=== PATIENT | male | born 1955 | race Two or more races ===

== ENCOUNTER 2023-06-02 06:15 | Emergency (ER) | payer MEDICARE, MEDICAID, SELFPAY ==
[2023-06-02] VITALS (15 sets, daily range): BP systolic 137–153; BP diastolic 72–90; PULSE 60–68; RESP 14–24; TEMP 36.4; O2SAT 95–98; BMI 47.2
--- NOTE | 2023-06-02 06:25 | ECG_ITS ---
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
--- NOTE | 2023-06-02 06:28 | XR_ITS ---
[address] [address] Patient Name: DUTCH MONIQUE MRN: [id number] date: 1955 Sex: M Assigned Patient Location: ER Current Patient Location: ED.MAIN Accession/Order Number: [id number] Exam Date: 06/02/2023 06:40 Report Date: 06/02/2023 07:41 At the request of: PILLO VALDEZ Procedure: XR wrist LT min 3V PROCEDURE: XR elbow LT min 3V, XR wrist LT min 3V, XR forearm LT 2V HISTORY: fall COMPARISON: None. FINDINGS: BONES:Transverse fracture through distal humeral metaphysis with 10 mm medial displacement. No intra-articular extension; intact humeral-radial and humeral-ulnar joints. SOFT TISSUES:Swelling surrounding the elbow; no radiopaque foreign body. EFFUSION:Joint effusion. OTHER: Negative. XR/XR wrist LT min 3V IMPRESSION: 1. Acute supracondylar fracture of the distal left humerus with 10 mm medial displacement. 2. Mild degenerative change of the wrist joints. Electronically authenticated by: ANNI WALLACE Date: 06/02/2023 07:41
--- NOTE | 2023-06-02 06:28 | XR_ITS ---
[address] [address] Patient Name: DUTCH MONIQUE MRN: [id number] date: 1955 Sex: M Assigned Patient Location: ER Current Patient Location: ED.MAIN Accession/Order Number: [id number] Exam Date: 06/02/2023 06:40 Report Date: 06/02/2023 07:41 At the request of: PILLO VALDEZ Procedure: XR forearm LT 2V PROCEDURE: XR elbow LT min 3V, XR wrist LT min 3V, XR forearm LT 2V HISTORY: fall COMPARISON: None. FINDINGS: BONES:Transverse fracture through distal humeral metaphysis with 10 mm medial displacement. No intra-articular extension; intact humeral-radial and humeral-ulnar joints. SOFT TISSUES:Swelling surrounding the elbow; no radiopaque foreign body. EFFUSION:Joint effusion. OTHER: Negative. XR/XR forearm LT 2V IMPRESSION: 1. Acute supracondylar fracture of the distal left humerus with 10 mm medial displacement. 2. Mild degenerative change of the wrist joints. Electronically authenticated by: ANNI WALLACE Date: 06/02/2023 07:41
--- NOTE | 2023-06-02 06:28 | CT_ITS ---
[address] [address] Patient Name: DUTCH MONIQUE MRN: [id number] date: 1955 Sex: M Assigned Patient Location: ER Current Patient Location: ED.MAIN Accession/Order Number: [id number] Exam Date: 06/02/2023 06:40 Report Date: 06/02/2023 07:59 At the request of: PILLO VALDEZ Procedure: CT cervical spine wo con EXAMINATION: CT cervical spine wo con HISTORY: fall COMPARISON: No relevant comparison available. TECHNIQUE: Axial, Coronal, and Sagittal images were created without IV contrast. Dose reduction techniques were achieved by using automated exposure control and/or adjustment of mA and/or kV according to patient size and/or use of iterative reconstruction technique. FINDINGS: VERTEBRAL BODIES: Minimal grade 1 anterolisthesis of C4-5; no fracture or bone lesion. FACET JOINTS: Multilevel moderate degenerative facet arthropathy; no abnormal widening or disruption. DISCS: Moderate narrowing C5-6, C6-7. Multilevel mild narrowing. CENTRAL CANAL: Moderate narrowing C3-4-5. PARASPINAL AREA: No visible mass. CT/CT cervical spine wo con IMPRESSION: 1. No appreciable acute abnormality. 2. Moderate degenerative changes of cervical spine. Electronically authenticated by: ANNI WALLACE Date: 06/02/2023 07:59
--- NOTE | 2023-06-02 06:28 | XR_ITS ---
[address] [address] Patient Name: DUTCH MONIQUE MRN: [id number] date: 1955 Sex: M Assigned Patient Location: ER Current Patient Location: ED.MAIN Accession/Order Number: [id number] Exam Date: 06/02/2023 06:40 Report Date: 06/02/2023 07:41 At the request of: PILLO VALDEZ Procedure: XR elbow LT min 3V PROCEDURE: XR elbow LT min 3V, XR wrist LT min 3V, XR forearm LT 2V HISTORY: fall COMPARISON: None. FINDINGS: BONES:Transverse fracture through distal humeral metaphysis with 10 mm medial displacement. No intra-articular extension; intact humeral-radial and humeral-ulnar joints. SOFT TISSUES:Swelling surrounding the elbow; no radiopaque foreign body. EFFUSION:Joint effusion. OTHER: Negative. XR/XR elbow LT min 3V IMPRESSION: 1. Acute supracondylar fracture of the distal left humerus with 10 mm medial displacement. 2. Mild degenerative change of the wrist joints. Electronically authenticated by: ANNI WALLACE Date: 06/02/2023 07:41
--- NOTE | 2023-06-02 06:28 | CT_ITS ---
[address] [address] Patient Name: DUTCH MONIQUE MRN: [id number] date: 1955 Sex: M Assigned Patient Location: ER Current Patient Location: ER Accession/Order Number: [id number] Exam Date: 06/02/2023 06:40 Report Date: 06/02/2023 07:49 At the request of: PILLO VALDEZ Procedure: CT head/brain wo con EXAMINATION: CT head/brain wo con HISTORY: fall COMPARISON: No relevant comparison available. TECHNIQUE: Axial CT images were obtained without IV contrast. Dose reduction techniques were achieved by using automated exposure control and/or adjustment of mA and/or kV according to patient size and/or use of iterative reconstruction technique. FINDINGS: BRAIN: No edema, hemorrhage, mass, acute infarction, or inappropriate atrophy. CSF SPACES: No hydrocephalus, subarachnoid hemorrhage, or mass. Appropriate for age. SKULL: No fracture, mass, or other significant visible lesion. SINUSES: Bilateral maxillary antrectomies with marked mucosal thickening within left maxillary sinus and mild mucosal thickening throughout the ethmoid air cells bilaterally. ORBITS: Small partially calcified left globe. No fractures. OTHER: Negative CT/CT head/brain wo con IMPRESSION: 1. No appreciable acute abnormality of the brain. 2. No fracture of the calvarium or scalp hematoma. 3. Chronic sinusitis. Electronically authenticated by: ANNI WALLACE Date: 06/02/2023 07:49
--- NOTE | 2023-06-02 06:46 | ED.FALL1 ---
HPI - Fall General Chief Complaint: Fall Stated Complaint: FALL Time Seen by Provider: 06/02/23 06:24 Source: patient Mode of arrival: ambulance Limitations: no limitations History of Present Illness HPI Narrative: The patient is coming today after he tripped while getting out of bed , he mentioned that his feet got caught up with something and he fell down complaining of left forearm and elbow pain in addition to he hit his head there was no loss of consciousness he is complaining of left-sided neck pain as well The patient mentioned that the injury just happened before arrival and he is coming from home Related Data Home Medications Medication Instructions Recorded Confirmed Unobtainable 06/02/23 06/02/23 Allergies Allergy/AdvReac Type Severity Reaction Status Date / Time amoxicillin [From Augmentin] Allergy Unknown Verified 06/02/23 06:21 cefaclor [From Ceclor] Allergy Unknown Verified 06/02/23 06:21 clavulanic acid Allergy Unknown Verified 06/02/23 06:21 [From Augmentin] duloxetine [From Cymbalta] Allergy Unknown Verified 06/02/23 06:21 Review of Systems ROS Status of ROS 10 or more systems reviewed and unremarkable except as noted in history and below [facility] Social History Smoking status: Current every day smoker Exam Narrative Exam Narrative: Nurses notes and vital signs reviewed and patient is not hypoxic. General: Well-appearing and in no apparent distress. Skin: Warm, dry, no pallor noted. No rash. Head: Normocephalic, small contusion to the forehead area Neck: Supple, the patient is wearing neck collar there is left-sided paraspinal muscle tenderness as well as upper cervical tenderness Eye: Pupils are equal, round and EOMI. No scleral icterus. Ears, Nose, Mouth, and Throat: TM are clear, no nasal mucosal hypertrophy. Oral mucosa is moist, no posterior oropharynx erythema, uvula is mid-line Cardiovascular: Regular Rate and Rhythm without murmur, gallop or rub. Respiratory: No accessory muscle use or respiratory distress. Lungs are clear to auscultation, no wheezing, rales or rhonchi Chest Wall: no tenderness Back: No midline thoracic or lumbar vertebral tenderness. No CVA tenderness Musculoskeletal: There is tenderness upon palpation of the left elbow as well as mild edema also tenderness upon palpation of the left forearm. GI: Abdomen is soft, non-distended. Normal bowel sounds. No masses appreciated. No tenderness to palpation. No rebound, guarding, or rigidity noted. Neurological: A&O x4. No cranial nerve dysfunction observed. No truncal ataxia. Moves all extremities. Sensation intact. Psychiatric: Cooperative and interactive. Normal mood and affect. Constitutional Vital Signs, click to edit/add: Last Vital Signs Temp 97.6 F 06/02/23 06:15 Pulse 65 06/02/23 06:15 Resp 16 06/02/23 06:15 BP 150/72 H 06/02/23 06:15 Pulse Ox 98 06/02/23 06:15 O2 Del Method Room Air 06/02/23 06:15 Course Vital Signs Vital signs: Vital Signs Temperature 97.6 F 06/02/23 06:15 Pulse Rate 65 06/02/23 06:15 Respiratory Rate 16 06/02/23 06:15 Blood Pressure 150/72 H 06/02/23 06:15 Pulse Oximetry 98 06/02/23 06:15 Oxygen Delivery Method Room Air 06/02/23 06:15 Temperature 97.6 F 06/02/23 06:15 Pulse Rate 65 06/02/23 06:15 Respiratory Rate 16 06/02/23 06:15 Blood Pressure 150/72 H 06/02/23 06:15 Pulse Oximetry 98 06/02/23 06:15 Oxygen Delivery Method Room Air 06/02/23 06:15 MDM - Fall MDM Narrative Medical decision making narrative: Right now the patient had a CT head as well as CT cervical spine noted And that he also had an x-ray of his elbow forearm and wrist ordered in the left side he was treated in the ER with Toradol for pain We will keep Denicola until we obtain the results of the CAT scan the The patient care was transferred to Dr. Hayward Discharge Plan Discharge Patient Disposition: Still a Patient
[2023-06-02] MEDS: KETOROLAC TROMETHAMINE 30 MG/ML VIAL 15 MG IM (06:57)
[2023-06-02] MEDS: HYDROMORPHONE HCL 1 MG/ML CARTRIDGE IM (08:38)
== END 2023-06-02 09:20 | disposition home or self-care (01) ==
PROVIDERS: Emergency Provider Emergency Medicine; PCP Internal Medicine
DX: S42.412A Displaced simple supracondylar fracture without intercondylar fracture of left humerus, initial encounter for closed fracture (principal); S00.83XA Contusion of other part of head, initial encounter; W01.10XA Fall on same level from slipping, tripping and stumbling with subsequent striking against unspecified object, initial encounter; H54.62 Unqualified visual loss, left eye, normal vision right eye
CPT/HCPCS: 29105; 70450; 72125; 73080; 73090; 73110; 93005; 96372; 99284; J1170

== ENCOUNTER 2023-06-04 11:22 | Outpatient (OUT) | payer MEDICARE, MEDICAID, SELFPAY ==
--- NOTE | 2023-06-04 11:38 | ECG_ITS ---
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
[2023-06-04 12:11] LABS: Basophils Absolute Auto 0.1 10^3/uL (0.0-0.1); Basophils Percent Auto 0.6 % (0.2-2.0); Eosinophils Absolute Auto 0.1 10^3/uL (0.0-0.7); Eosinophils Percent Auto 1.4 % (0.9-7.0); Hemoglobin 14.1 g/dL (14.0-18.0); Immature Granulocytes Abs Auto 0.04 10^3/uL (0.00-0.03); Immature Granulocytes Pct Auto 0.4 % (0.0-0.5); Lymphocytes Absolute Auto 1.2 10^3/uL (1.2-3.8); Lymphocytes Percent Auto 13.1 % (20.5-60.0); Mean Corpuscular HGB Conc 36.2 g/dL (29.9-35.2); Mean Corpuscular Hemoglobin 32.3 pg (25.9-34.0); Mean Corpuscular Volume 89.4 fL (80.0-94.0); Mean Platelet Volume 9.5 fL (9.5-13.5); Monocytes Absolute Auto 0.7 10^3/uL (0.3-0.8); Monocytes Percent Auto 7.3 % (1.7-12.0); Neutrophils Percent Auto 77.2 % (43.0-75.0); Platelet Count 217 10^3/uL (150-450); Red Blood Count 4.36 10^6/uL (4.70-6.10); Red Cell Distribution Width 13.7 % (11.0-15.0)
[2023-06-04 12:39] LABS: BUN Creatinine Ratio 7.1; Calcium 8.6 mg/dL (8.5-10.1); Carbon Dioxide 26.2 mmol/L (21.0-32.0); Chloride 97 mmol/L (98-107); Estimated GFR (African America >60 (>=60); Estimated GFR (Non-African Ame >60 (>=60); Glucose 102 mg/dL (74-106); Potassium 4.2 mmol/L (3.5-5.1); Sodium 131 mmol/L (136-145)
== END 2023-06-04 11:23 | disposition home or self-care (01) ==
LOC: PST 11:26
PROVIDERS: PCP Internal Medicine; Visit Provider Orthopaedic Surgery
DX: Z01.810 Encounter for preprocedural cardiovascular examination (principal); S42.412A Displaced simple supracondylar fracture without intercondylar fracture of left humerus, initial encounter for closed fracture; E11.9 Type 2 diabetes mellitus without complications
CPT/HCPCS: 36415; 80048; 85025; 93005

== ENCOUNTER 2023-06-09 17:59 | Observation (INO) | payer MEDICARE, MEDICAID, SELFPAY ==
[2023-06-04 11:58] VITALS: BP 140/79; PULSE 78; RESP 20; TEMP 36.9; O2SAT 95; BMI 21.4
[2023-06-09] VITALS (26 sets, daily range): BP systolic 125–160; BP diastolic 65–96; PULSE 68–87; RESP 14–21; TEMP 36.1–36.8; O2SAT 91–98; BMI 21.3; BMI 21.5
--- NOTE | 2023-06-09 | XR_ITS ---
[address] [address] Patient Name: DUTCH MONIQUE MRN: [id number] date: 1955 Sex: M Assigned Patient Location: SURGOUT Current Patient Location: MS Accession/Order Number: [id number] Exam Date: 06/09/2023 11:30 Report Date: 06/10/2023 00:48 At the request of: ANNI WILSON Procedure: XR elbow LT 2V EXAM: XR elbow LT 2V HISTORY: ORIF Lt elbow COMPARISON: None. TECHNIQUE: Image intensifier images from the operating room were saved. FINDINGS: 3 images show placement of the medial and lateral humeral plates with multiple screws. Total fluoroscopy time was 212.6 seconds. Electronically authenticated by: Collins WARREN Date: 06/10/2023 00:48
[2023-06-09] MEDS: LACTATED RINGER'S SOLUTION 1,000 ML 50 ML IV ×2 (10:13→12:49)
[2023-06-09] MEDS: SCOPOLAMINE 1 EACH PATCH.TD.3 1 PATCH TD (10:55)
[2023-06-09] MEDS: VANCOMYCIN HCL 1,000 MG in 0.9 % SODIUM CHLORIDE 250 ML 1 MG IV (11:15)
--- NOTE | 2023-06-09 11:25 | PC.NURSE ---
1113 BLOCK FINISHED BP 135/72 P 74 R 16 SAO2 98% ON 3 L NC
[2023-06-09] MEDS: HYDROMORPHONE HCL 0.5 MG/0.5 ML SYRINGE IV ×3 (15:14→15:29)
--- NOTE | 2023-06-09 17:15 | PM.ORPRC ---
Procedure Note Date of procedure: 06/09/23 Pre-op diagnosis: Left distal humerus fracture, extra-articular Post-op diagnosis: same as pre-op Procedure: Open reduction internal fixation left distal humerus fracture Operative procedure: After informed consent was obtained the patient was brought to the operating room where a general anesthetic was administered. Preoperatively a regional block was placed. The patient was placed in the lateral decubitus position with all bony prominences well-padded. Left arm was draped over a post. The left arm was prepped and draped in the usual sterile fashion. An incision was made from the midportion of the humerus for posterior approach to the elbow extending distally just past the olecranon. Blunt dissection was carried down through soft tissue. Ulnar nerve was identified and released from ligament of [place] through Bruner's ligament and superficial and deep FCU fascia. A [place] drain was placed around the ulnar nerve for protection throughout the procedure. Nerve is maintained in its normal location after the procedure. Next the triceps on approach was taken to exposing the distal humerus extra-articular fracture. He triceps was elevated off the distal humerus through both medial and lateral windows. The fracture was identified and using a pointed reduction forcep was reduced. X-rays in AP and lateral planes revealed a good reduction. Synthes parallel distal humerus plates were utilized. First the medial plate was placed and secured into position with K wires. A 2.7 nonlocking screw was first placed in the shaft to aid in the reduction of the fracture. There was found to be some comminution of the medial epicondyle but no extension into the joint. In combination of 2.7 and 3.5 locking and nonlocking screws a total of 4 screws were placed in the proximal shaft fragment and 2 0.7 unicortical locking screws were placed at the distal fracture fragments. Next a lateral plate was placed and secured in a similar fashion with a 2.7 bicortical nonlocking screw. 1 bicortical 3.5 locking screw was placed in the shaft followed by 1 bicortical 2.7 locking screw. Final 2 screws were placed in the unicortical locking fashion to the distal fracture fragments. Final x-rays and AP and lateral planes revealed a reduced distal humeral fracture with appropriate implant placement and lengths. Wound was irrigated . Wound was closed in standard fashion in layers. Sterile dressing was placed. Posterior fiberglass splint was placed in 90 degrees of flexion. Patient was awakened and brought to the recovery in stable condition. There were no intraoperative or immediate postoperative complications. Anesthesia: GETA and regional Surgeon: Mynor Armstrong Title One Reading Teacher: Catarina Wood Pathology: none sent Condition: stable Disposition: observation
[2023-06-09 17:35] LABS: Hemoglobin 13.1 g/dL (14.0-18.0); Mean Corpuscular HGB Conc 35.4 g/dL (29.9-35.2); Mean Corpuscular Hemoglobin 32.2 pg (25.9-34.0); Mean Corpuscular Volume 90.9 fL (80.0-94.0); Mean Platelet Volume 9.1 fL (9.5-13.5); Platelet Count 275 10^3/uL (150-450); Red Blood Count 4.07 10^6/uL (4.70-6.10); Red Cell Distribution Width 13.8 % (11.0-15.0); White Blood Count 11.6 10^3/uL (4.0-11.0)
[2023-06-09 18:29] LABS: Band Neutrophils Absolute 0.2 10^3/uL (0.0-0.3); Hypochromasia 1+; Lymphocytes Absolute Manual 0.69 10^3/uL (1.20-3.80); Monocytes Absolute Manual 0.46 10^3/uL (0.30-0.80)
[2023-06-09 18:30] LABS: Anisocytosis 1+
[2023-06-09] MEDS: PRIMIDONE 50 MG TABLET 100 MG PO (22:43)
[2023-06-09] MEDS: ATORVASTATIN CALCIUM 40 MG TABLET PO (22:43)
[2023-06-09] MEDS: ARIPIPRAZOLE 2 MG TABLET PO (22:43)
[2023-06-09] MEDS: PREGABALIN 75 MG CAPSULE 150 MG PO (22:43)
[2023-06-09] MEDS: OMEPRAZOLE 40 MG CAPSULE.DR PO (22:43)
[2023-06-09] MEDS: TIZANIDINE HCL 4 MG TABLET 8 MG PO (22:44)
[2023-06-09] MEDS: VENLAFAXINE HCL ER 150 MG CAPSULE PO (22:44)
[2023-06-09] MEDS: PHENobarbitaL 32.4 MG TABLET PO (22:45)
[2023-06-09] MEDS: LISINOPRIL 20 MG TABLET PO (22:45)
[2023-06-09] MEDS: TAMSULOSIN HCL 0.4 MG CAPSULE PO (22:47)
[2023-06-10 03:44] VITALS: O2SAT 94
[2023-06-10] MEDS: PHENobarbitaL 32.4 MG TABLET PO (05:30)
[2023-06-10] MEDS: TIZANIDINE HCL 4 MG TABLET 8 MG PO (05:30)
[2023-06-10] MEDS: PREGABALIN 75 MG CAPSULE 150 MG PO (05:30)
[2023-06-10 05:41] VITALS: BP 162/81; PULSE 79; RESP 20; TEMP 36.8; O2SAT 92
[2023-06-10] MEDS: TAMSULOSIN HCL 0.4 MG CAPSULE PO (08:30)
[2023-06-10] MEDS: OMEPRAZOLE 40 MG CAPSULE.DR PO (08:30)
[2023-06-10] MEDS: LISINOPRIL 20 MG TABLET PO (08:30)
[2023-06-10] MEDS: PRIMIDONE 50 MG TABLET 100 MG PO (08:30)
--- NOTE | 2023-06-11 15:36 | CM.DCFOLLOWU ---
Person spoke with: patient How are you feeling? alright, but had a fall in the bathroom yesterday How is your pain? no pain Did you understand your discharge instructions? yes Do you have any questions about your discharge instructions? no Were you given any prescriptions at discharge? no Were you able to get your prescriptions filled? Do you understand how to take your medications as ordered? yes Do you have any questions about your follow up appointment and do you plan to keep your follow up appointment? No questions, follow up with Dr. Armstrong on FridayJune 16. Is there anything else that you would like to discuss? Patient had a fall at home, is there with him, he did voice he hit his head. Advised to go to ER if in any pain or if landed on arm that he had surgery on. Questions/Comments/Concerns/Other:
--- NOTE | 2023-06-30 15:12 | P.DS_ITS ---
DS: Providers Provider Date of admission: 06/09/23 17:59 Primary care physician: HARPER PERRY Admitting clinician: Mynor Armstrong Attending physician on admission: Mynor Armstrong Attending physician on discharge: Mynor Armstrong Discharging clinician: Mynor Armstrong DS: Diagnosis Discharge Diagnosis (1) Supracondylar fracture of left humerus: Plan Assessment: Supracondylar humerus fracture Plan: Discharged home. Follow-up in 2 weeks. DS: Summary Hospital Course Time spent discussing smoking cessation with patient: 3 to 10 minutes Status at Discharge Cognitive/behavioral status at discharge: Stable Functional status at discharge: independent ambulation Time Spent with Patient Time attestation: Total time spent providing and/or coordinating discharge services: Time spent: less than 30 minutes Specific discharge activities: Elevate arm. No weightbearing through operative arm. Quality: Stroke Reason for No Antithrombin at DC: Treatment not indicated Reason for No Anticoagulant at DC: Treatment not indicated Exam Constitutional Vital Signs, click to edit/add: Last Vital Signs Temp 98.3 F 06/10/23 05:41 Pulse 79 06/10/23 05:41 Resp 20 06/10/23 05:41 BP 162/81 H 06/10/23 05:41 Pulse Ox 92 L 06/10/23 05:41 O2 Del Method Room Air 06/10/23 05:41 Extremity Common normals: normal capillary refill General: normal exam except as noted Discharge Plan Discharge Disposition: Home, Self-Care Condition: Good Discharge Medications: Continued albuterol sulfate 90 mcg/actuation HFA aerosol inhaler 2 puff INHALATION Q4H PRN (Reason: bronchospasm) aripiprazole 2 mg tablet 2 mg PO QDAY fluticasone propionate 50 mcg/actuation spray,suspension 2 spray INTRANASAL QDAY hydrocodone-acetaminophen 10-325 mg tablet 2 tab PO Q6H PRN (Reason: pain) pantoprazole 40 mg tablet,delayed release (DR/EC) 40 mg PO QDAY lisinopril 20 mg tablet 20 mg PO QAM phenobarbital 32.4 mg tablet 32.4 mg PO Q8H phenytoin sodium extended 100 mg capsule 100 mg PO Q8H pregabalin 150 mg capsule 150 mg PO Q8H primidone 50 mg tablet 100 mg PO BID simvastatin 40 mg tablet 40 mg PO BEDTIME tamsulosin 0.4 mg capsule 0.4 mg PO QDAY tizanidine 4 mg tablet 8 mg PO Q8H venlafaxine 150 mg capsule,extended release 24hr 150 mg PO QDAY venlafaxine 75 mg capsule,extended release 24hr 75 mg PO QDAY diphenhydramine HCl [Banophen] 50 mg capsule 50 mg PO QPM PRN (Reason: sleep) No Action albuterol sulfate 90 mcg/actuation HFA aerosol inhaler 2 inh INHALATION Q4H PRN (Reason: wheezing) aripiprazole 2 mg tablet 2 mg PO DAILY epinephrine 0.15 mg/0.15 mL auto-injector 0.15 ml subcut PRN (Reason: allergic reaction) fluticasone propionate 50 mcg/actuation spray,suspension 2 spray INTRANASAL DAILY hydrocodone-acetaminophen 10-325 mg tablet 2 tab PO Q6H PRN (Reason: pain) lisinopril 20 mg tablet 20 mg PO DAILY pantoprazole 40 mg tablet,delayed release (DR/EC) 40 mg PO DAILY phenobarbital 32.4 mg tablet 32.4 mg PO TID phenytoin sodium extended 100 mg capsule 100 mg PO Q12H pregabalin 150 mg capsule 150 mg PO TID primidone 50 mg tablet 100 mg PO Q12H simvastatin 40 mg tablet 40 mg PO BEDTIME tamsulosin 0.4 mg capsule 0.4 mg PO Q24H tizanidine 4 mg tablet 8 mg PO Q8H venlafaxine 150 mg capsule,extended release 24hr 150 mg PO DAILY hydrocodone-acetaminophen 5-325 mg tablet 1 tab PO TID PRN (Reason: pain) 5 Days Qty: 20 0RF diphenhydramine HCl [Banophen] 25 mg capsule 25 mg PO BEDTIME PRN (Reason: sleep) Rx Instructions: 25 mg orally PRN; Activity: resume usual activities as tolerated Activity Detail: use cane when walking Diet: advance to your usual diet Print Language: Occitan Patient Instructions: ORIF of an Elbow Fracture (DC), ORIF of an Elbow Fracture (GEN) Activity Restrictions/Additional Instructions: SEDATION - For the next 24 hours: * Take it easy and rest today. You do not need to stay in bed, but avoid strenuous activities. * You may resume normal activities tomorrow. * DO NOT drive a car. * DO NOT leave your child unattended. * DO NOT make any important personal or business decisions or sign any legal documents. * DO NOT operate machinery such as power tools, lawn mowers, snow blowers, sewing machines, etc. * DO NOT stay alone. * No special care. * Keep dressings and suture lines clean and dry. * Do not remove the dressing until you see the doctor * You may remove and rewrap the diane wrap if it becomes too tight. * Apply an ice bag (20 minutes on/20 minutes off) for the first 24-48 hours. * Elevate your extremity. * MAY SHOWER WITH CAST COVERED Follow Up Appointments: Follow up appt. with Dr. Armstrong on @ 10:20 [facility] Office #: [phone] Discharge Date/Time: 06/10/23 09:34
== END 2023-06-10 09:34 | disposition home or self-care (01) ==
LOC: SURGOUT 06-10 08:06 → MS 06-10 08:06
PROVIDERS: Anesthesiology; Admitting Provider Orthopaedic Surgery; PCP Internal Medicine; Visit Provider Orthopaedic Surgery
PROC: (CPT 1740; principal; 2023-06-09 11:00)
DX: S42.402A Unspecified fracture of lower end of left humerus, initial encounter for closed fracture (principal); W19.XXXA Unspecified fall, initial encounter
CPT/HCPCS: 24586; 36415; 64415; 73070; 76000; 76942; 85027; 94761; C1713; G0378; J1170; J2704; J3370

== ENCOUNTER 2023-07-07 09:02 | Outpatient (OUT) | payer MEDICARE, MEDICAID, SELFPAY ==
--- NOTE | 2023-07-07 09:03 | XR_ITS ---
[address] [address] Patient Name: DUTCH MONIQUE MRN: [id number] date: 1955 Sex: M Assigned Patient Location: RAD Current Patient Location: RAD Accession/Order Number: [id number] Exam Date: 07/07/2023 09:17 Report Date: 07/07/2023 09:46 At the request of: NANI WILSON Procedure: XR elbow LT 2V PROCEDURE: XR elbow LT 2V COMPARISON: 06/09/2023 HISTORY: S42.4512A, S42.402A FINDINGS: BONES:Stable complex distal humerus fracture with internal fixation using a medial and lateral plate and screws. Extensive bone formation with periosteal reaction. Anatomic alignment. No dislocation. SOFT TISSUES:Moderate dorsal soft tissue swelling EFFUSION:None visible. OTHER: Negative. XR/XR elbow LT 2V IMPRESSION: Stable healing distal humerus fracture with internal fixation Electronically authenticated by: HEYDI ELKINS Date: 07/07/2023 09:46
== END 2023-07-07 09:03 | disposition home or self-care (01) ==
LOC: RAD 09:03
PROVIDERS: PCP Internal Medicine; Visit Provider Orthopaedic Surgery
DX: S42.412A Displaced simple supracondylar fracture without intercondylar fracture of left humerus, initial encounter for closed fracture (principal); S42.402A Unspecified fracture of lower end of left humerus, initial encounter for closed fracture
CPT/HCPCS: 73070

== ENCOUNTER 2023-07-09 18:53 | Emergency (ER) | payer MEDICARE, MEDICAID, SELFPAY ==
[2023-07-09 18:38] VITALS: BP 160/90; PULSE 80; RESP 18; TEMP 36.7; O2SAT 96; BMI 21.2
--- NOTE | 2023-07-09 18:54 | ED.GENADUL1 ---
HPI - General Adult General Chief complaint: Psychiatric Symptoms Stated complaint: suicidal Time Seen by Provider: 07/09/23 18:56 Source: patient Mode of arrival: ambulance History of Present Illness HPI narrative: patient is a 67-year-old male who is brought to the emergency department by EMS after police were called to the home for possible suicidal ideation. Patient explains that he recently broke his elbow and had surgery on his left elbow, he has an aide who comes to the home to help him and his with groceries and daily living activities. He states he had a disagreement with his aide yesterday and apparently told her I could stab you , and he states he said this out of frustration. He states he talked to the aide today and they worked out their disagreement. He states another nurse from the agency contacted police for the threat. Patient adamantly denies any suicidal or homicidal ideation. He has no other focal medical complaints and denies any ingestion of drugs or alcohol. He is calm and cooperative. Related Data Home Medications Medication Instructions Recorded Confirmed albuterol sulfate 90 mcg/actuation 2 inh inhalation Q4H PRN wheezing 06/02/23 06/02/23 aerosol inhaler aripiprazole 2 mg tablet 2 mg PO DAILY 06/02/23 06/02/23 epinephrine 0.15 mg/0.15 mL 0.15 ml subcut PRN allergic 06/02/23 auto-injector (for 33 to 66 lb reaction patients) fluticasone propionate 50 2 spray intranasal DAILY 06/02/23 06/02/23 mcg/actuation nasal spray,suspension hydrocodone 10 mg-acetaminophen 2 tab PO Q6H PRN pain 06/02/23 06/02/23 325 mg tablet lisinopril 20 mg tablet 20 mg PO DAILY 06/02/23 06/02/23 pantoprazole 40 mg tablet,delayed 40 mg PO DAILY 06/02/23 06/02/23 release phenobarbital 32.4 mg tablet 32.4 mg PO TID 06/02/23 06/02/23 phenytoin sodium extended 100 mg 100 mg PO Q12H 06/02/23 06/02/23 capsule pregabalin 150 mg capsule 150 mg PO TID 06/02/23 06/02/23 primidone 50 mg tablet 100 mg PO Q12H 06/02/23 06/02/23 simvastatin 40 mg tablet 40 mg PO BEDTIME 06/02/23 06/02/23 tamsulosin 0.4 mg capsule 0.4 mg PO Q24H 06/02/23 06/02/23 tizanidine 4 mg tablet 8 mg PO Q8H 06/02/23 06/02/23 venlafaxine 150 mg 150 mg PO DAILY 06/02/23 06/02/23 capsule,extended release 24 hr albuterol sulfate 90 mcg/actuation 2 puff inhalation Q4H PRN 06/04/23 06/09/23 aerosol inhaler bronchospasm aripiprazole 2 mg tablet 2 mg PO QDAY 06/04/23 06/09/23 diphenhydramine HCl 50 mg capsule 50 mg PO QPM PRN sleep 06/04/23 06/09/23 (Banophen) fluticasone propionate 50 2 spray intranasal QDAY 06/04/23 06/09/23 mcg/actuation nasal spray,suspension hydrocodone 10 mg-acetaminophen 2 tab PO Q6H PRN pain 06/04/23 06/09/23 325 mg tablet lisinopril 20 mg tablet 20 mg PO QAM 06/04/23 06/09/23 pantoprazole 40 mg tablet,delayed 40 mg PO QDAY 06/04/23 06/09/23 release phenobarbital 32.4 mg tablet 32.4 mg PO Q8H 06/04/23 06/09/23 phenytoin sodium extended 100 mg 100 mg PO Q8H 06/04/23 06/09/23 capsule pregabalin 150 mg capsule 150 mg PO Q8H 06/04/23 06/09/23 primidone 50 mg tablet 100 mg PO BID 06/04/23 06/09/23 simvastatin 40 mg tablet 40 mg PO BEDTIME 06/04/23 06/09/23 tamsulosin 0.4 mg capsule 0.4 mg PO QDAY 06/04/23 06/09/23 tizanidine 4 mg tablet 8 mg PO Q8H 06/04/23 06/09/23 venlafaxine 150 mg 150 mg PO QDAY 06/04/23 06/09/23 capsule,extended release 24 hr venlafaxine 75 mg capsule,extended 75 mg PO QDAY 06/04/23 06/09/23 release 24 hr diphenhydramine HCl 25 mg capsule 25 mg PO BEDTIME PRN sleep 06/09/23 06/09/23 (Banophen) Previous Rx's Medication Instructions Recorded hydrocodone 5 mg-acetaminophen 325 1 tab PO TID PRN pain 5 days #20 06/02/23 mg tablet tabs Allergies Allergy/AdvReac Type Severity Reaction Status Date / Time amoxicillin [From Augmentin] Allergy Unknown Verified 06/13/23 07:45 cefaclor [From Ceclor] Allergy Unknown Verified 06/13/23 07:45 clavulanic acid Allergy Unknown Verified 06/13/23 07:45 [From Augmentin] duloxetine [From Cymbalta] Allergy Unknown Verified 06/13/23 07:45 bee venom protein (honey bee) Allergy Anaphylaxis Verified 06/13/23 07:45 carbamazepine [From Tegretol] Allergy Weakness Verified 06/13/23 07:45 Review of Systems ROS Constitutional Denies: fever or chills Ears, nose, mouth, and throat Denies: throat pain Cardiovascular Denies: chest pain Respiratory Denies: shortness of breath or cough Gastrointestinal Denies: nausea or vomiting Musculoskeletal Denies: back pain or neck pain Integumentary/Breast Denies: rash Psychiatric Denies: anxiety or hopelessness Allergic/Immunologic Denies: hives [facility] Medical History (Updated 07/09/23 @ 19:27 by FRANCO Barillas) (03/21/21) Surgical History (Updated 06/13/23 @ 07:45 by Adriane Joshua) Family History (System 06/13/23 @ 07:45 by Adriane Joshua) Aunt Family history not known due to adoption Mother Family history of CHF (congestive heart failure) Family history of COPD (chronic obstructive pulmonary disease) Family history of heart disease Family history of hypertension Social History Within the past year, how often did you have a drink containing alcohol: never Score interpretation: A score less than 4 is consistent with normal alcohol consumption. Smoking status: Current every day smoker What tobacco products do you use: cigars Non-prescribed substance use: denies use Previous occupational history: DISABLED Highest level of school completed/degree received: Associate degree: academic program Exam Narrative Exam Narrative: Gen.: Awake, alert, in no distress Head: Normocephalic, atraumatic ENT: Moist mucous membranes Respiratory: No respiratory distress Extremities: left upper extremity in a sling Psych: Normal mood and affect Neuro: No focal neuro deficit Skin: Warm, dry, intact Constitutional Vital Signs, click to edit/add: Last Vital Signs Temp 98.1 F 07/09/23 18:38 Pulse 80 07/09/23 18:38 Resp 18 07/09/23 18:38 BP 160/90 H 07/09/23 18:38 Pulse Ox 96 07/09/23 18:38 O2 Del Method Room Air 07/09/23 18:38 Course Vital Signs Vital signs: Vital Signs Temperature 98.1 F 07/09/23 18:38 Pulse Rate 80 07/09/23 18:38 Respiratory Rate 18 07/09/23 18:38 Blood Pressure 160/90 H 07/09/23 18:38 Pulse Oximetry 96 07/09/23 18:38 Oxygen Delivery Method Room Air 07/09/23 18:38 Temperature 98.1 F 07/09/23 18:38 Pulse Rate 80 07/09/23 18:38 Respiratory Rate 18 07/09/23 18:38 Blood Pressure 160/90 H 07/09/23 18:38 Pulse Oximetry 96 07/09/23 18:38 Oxygen Delivery Method Room Air 07/09/23 18:38 Medical Decision Making MDM Narrative Medical decision making narrative: patient is calm, cooperative in the Emergency Room. He has stable vital signs, benign exam. He is not intoxicated, he has no suicidal or homicidal ideation. He spoke with counseling services over the phone from [facility], he does not pose a suicidal or homicidal risk at this time. He is discharged home, hotline number provided as needed. Return to the Emergency Room if symptoms change or worsen. Medical Records Medical records reviewed: Yes I reviewed the patient's medical records Discharge Plan Discharge Chief Complaint: Psychiatric Symptoms Clinical Impression: Behavior concern Patient Disposition: Home, Self-Care Time of Disposition Decision: 19:27 Condition: Good Prescriptions / Home Meds: No Action albuterol sulfate 90 mcg/actuation HFA aerosol inhaler 2 inh INHALATION Q4H PRN (Reason: wheezing) aripiprazole 2 mg tablet 2 mg PO DAILY epinephrine 0.15 mg/0.15 mL auto-injector 0.15 ml subcut PRN (Reason: allergic reaction) fluticasone propionate 50 mcg/actuation spray,suspension 2 spray INTRANASAL DAILY hydrocodone-acetaminophen 10-325 mg tablet 2 tab PO Q6H PRN (Reason: pain) lisinopril 20 mg tablet 20 mg PO DAILY pantoprazole 40 mg tablet,delayed release (DR/EC) 40 mg PO DAILY phenobarbital 32.4 mg tablet 32.4 mg PO TID phenytoin sodium extended 100 mg capsule 100 mg PO Q12H pregabalin 150 mg capsule 150 mg PO TID primidone 50 mg tablet 100 mg PO Q12H simvastatin 40 mg tablet 40 mg PO BEDTIME tamsulosin 0.4 mg capsule 0.4 mg PO Q24H tizanidine 4 mg tablet 8 mg PO Q8H venlafaxine 150 mg capsule,extended release 24hr 150 mg PO DAILY hydrocodone-acetaminophen 5-325 mg tablet 1 tab PO TID PRN (Reason: pain) 5 Days Qty: 20 0RF albuterol sulfate 90 mcg/actuation HFA aerosol inhaler 2 puff INHALATION Q4H PRN (Reason: bronchospasm) aripiprazole 2 mg tablet 2 mg PO QDAY fluticasone propionate 50 mcg/actuation spray,suspension 2 spray INTRANASAL QDAY hydrocodone-acetaminophen 10-325 mg tablet 2 tab PO Q6H PRN (Reason: pain) pantoprazole 40 mg tablet,delayed release (DR/EC) 40 mg PO QDAY lisinopril 20 mg tablet 20 mg PO QAM phenobarbital 32.4 mg tablet 32.4 mg PO Q8H phenytoin sodium extended 100 mg capsule 100 mg PO Q8H pregabalin 150 mg capsule 150 mg PO Q8H primidone 50 mg tablet 100 mg PO BID simvastatin 40 mg tablet 40 mg PO BEDTIME tamsulosin 0.4 mg capsule 0.4 mg PO QDAY tizanidine 4 mg tablet 8 mg PO Q8H venlafaxine 150 mg capsule,extended release 24hr 150 mg PO QDAY venlafaxine 75 mg capsule,extended release 24hr 75 mg PO QDAY diphenhydramine HCl [Banophen] 50 mg capsule 50 mg PO QPM PRN (Reason: sleep) diphenhydramine HCl [Banophen] 25 mg capsule 25 mg PO BEDTIME PRN (Reason: sleep) Rx Instructions: 25 mg orally PRN; Stand Alone Forms: Portal Instructions Referrals: HARPER PERRY [Primary Care Provider] - 1 week
--- NOTE | 2023-07-09 19:13 | PC.NURSE ---
pt brought in because patient lives and home and has injury to elbow so pt has an aid that comes and helps him around the houses. pt states that yesterday him and the aid got into an argument and the patient told the aid that he was so mad he could stab the aid. the police were contacted and then ems were contacted. pt states that he thought him and the aid had worked things out and that he apologized. pt denies and suicidal or homicidal ideation. pt is currently on the phone with p at this time.
== END 2023-07-09 20:06 | disposition home or self-care (01) ==
PROVIDERS: Emergency Provider Emergency Medicine; PCP Internal Medicine
DX: Z03.89 Encounter for observation for other suspected diseases and conditions ruled out (principal); Z79.899 Other long term (current) drug therapy; F17.290 Nicotine dependence, other tobacco product, uncomplicated
CPT/HCPCS: 99283

== ENCOUNTER 2023-07-21 09:55 | Outpatient (OUT) | payer MEDICARE, MEDICAID, SELFPAY ==
--- NOTE | 2023-07-21 10:03 | XR_ITS ---
The [address] [address] Patient Name: DUTCH MONIQUE MRN: [id number] date: 1955 Sex: M Assigned Patient Location: [facility] Current Patient Location: Accession/Order Number: [id number] Exam Date: 07/21/2023 10:17 Report Date: 07/22/2023 07:22 At the request of: ANNI WILSON Procedure: XR elbow LT 2V EXAM: XR elbow LT 2V, XR humerus LT HISTORY: Closed Fracture Of Left Humerus S42.402A COMPARISON: 07/07/2023. TECHNIQUE: Routine views of the XR elbow LT 2V, XR humerus LT FINDINGS/ XR/XR elbow LT 2V IMPRESSION: 1. Healing internally fixated distal humeral fracture as evidenced by callus maturation. No evidence for hardware complication. Maintained alignment. No new fracture identified. Normal mineralization. 2. Unremarkable soft tissues. 3. Normal joint spacing. Electronically authenticated by: KELI JEFFREY Date: 07/22/2023 07:22
--- NOTE | 2023-07-21 10:03 | XR_ITS ---
The [address] [address] Patient Name: DUTCH MONIQUE MRN: [id number] date: 1955 Sex: M Assigned Patient Location: [facility] Current Patient Location: Accession/Order Number: [id number] Exam Date: 07/21/2023 10:17 Report Date: 07/22/2023 07:22 At the request of: ANNI WILSON Procedure: XR humerus LT EXAM: XR elbow LT 2V, XR humerus LT HISTORY: Closed Fracture Of Left Humerus S42.402A COMPARISON: 07/07/2023. TECHNIQUE: Routine views of the XR elbow LT 2V, XR humerus LT FINDINGS/ XR/XR humerus LT IMPRESSION: 1. Healing internally fixated distal humeral fracture as evidenced by callus maturation. No evidence for hardware complication. Maintained alignment. No new fracture identified. Normal mineralization. 2. Unremarkable soft tissues. 3. Normal joint spacing. Electronically authenticated by: KELI JEFFREY Date: 07/22/2023 07:22
== END 2023-07-21 09:56 | disposition home or self-care (01) ==
LOC: RAD 09:55
PROVIDERS: PCP Internal Medicine; Visit Provider Orthopaedic Surgery
DX: S42.402A Unspecified fracture of lower end of left humerus, initial encounter for closed fracture (principal); X58.XXXA Exposure to other specified factors, initial encounter
CPT/HCPCS: 73060; 73070

== ENCOUNTER 2023-09-08 10:06 | Outpatient (OUT) | payer MEDICARE, MEDICAID, SELFPAY ==
--- NOTE | 2023-09-08 10:15 | XR_ITS ---
The [address] [address] Patient Name: DUTCH MONIQUE MRN: [id number] date: 1955 Sex: M Assigned Patient Location: [facility] Current Patient Location: Accession/Order Number: [id number] Exam Date: 09/08/2023 10:25 Report Date: 09/09/2023 07:18 At the request of: ANNI WILSON Procedure: XR elbow LT min 3V EXAM: XR elbow LT min 3V HISTORY: Displaced Simple Supracondylar Fracture Of Left Humerus COMPARISON: 06/02/2023. TECHNIQUE: Routine views of the XR elbow LT min 3V FINDINGS/ XR/XR elbow LT min 3V IMPRESSION: 1. Plate and screw fixation of the distal humerus. Callus formation about the supracondylar fracture site. Alignment is overall maintained. No evidence for hardware complication. 2. Posterior elbow swelling. 3. Mild degenerative changes at the elbow. Electronically authenticated by: KELI JEFFREY Date: 09/09/2023 07:18
== END 2023-09-08 10:07 | disposition home or self-care (01) ==
LOC: RAD 10:06
PROVIDERS: PCP Internal Medicine; Visit Provider Orthopaedic Surgery
DX: S42.412D Displaced simple supracondylar fracture without intercondylar fracture of left humerus, subsequent encounter for fracture with routine healing (principal)
CPT/HCPCS: 73080

== ENCOUNTER 2023-09-12 12:46 | Outpatient (OUT) | payer MEDICARE, MEDICAID, SELFPAY ==
--- NOTE | 2023-09-12 12:49 | CT_ITS ---
The [address] [address] Patient Name: DUTCH MONIQUE MRN: [id number] date: 1955 Sex: M Assigned Patient Location: CT Current Patient Location: CT Accession/Order Number: [id number] Exam Date: 09/12/2023 13:00 Report Date: 09/12/2023 13:22 At the request of: NON-STAFF PHYSICIAN Procedure: CT head/brain wo con EXAM: CT head/brain wo con HISTORY: Injury Of Head S09.90XA COMPARISON: CT brain 06/02/2023 TECHNIQUE: No IV contrast FINDINGS: The ventricles and basilar cisterns are within normal limits. No acute intra-axial or extra hemorrhage. No midline shift, mass effect or edema. Bifrontal atrophy noted moderate present previously. Widely patent foramen extending from the maxillary sinuses to the nasal cavity bilaterally. No fluid levels to suggest acute sinusitis. Mastoid air cells clear. The external and middle ear cavities are unremarkable. Left orbital prosthesis noted. CT/CT head/brain wo con IMPRESSION: No acute hemorrhage Electronically authenticated by: RAUL LOPEZ Date: 09/12/2023 13:22
== END 2023-09-12 12:47 | disposition home or self-care (01) ==
LOC: CT 12:46
PROVIDERS: PCP Internal Medicine
DX: S09.90XA Unspecified injury of head, initial encounter (principal)
CPT/HCPCS: 70450

== ENCOUNTER 2023-10-30 15:14 | Emergency (ER) | payer MEDICARE, MEDICAID, SELFPAY ==
[2023-10-30] VITALS (8 sets, daily range): BP systolic 133; BP diastolic 85; PULSE 81–99; RESP 11–26; TEMP 36.7; O2SAT 95–99; BMI 21.4
--- NOTE | 2023-10-30 15:15 | ECG_ITS ---
The [facility] Test Date: 2023-10-30 Pat Name: DUTCH MONIQUE Department: Room: - Gender: Male Battery [employer]er: : 1955 Requested By: HARPER PERRY Order Number: [id number] Reading MD: BLAINE MCKAY Measurements Intervals [place] Rate: 92 P: 57 RI: 136 QRS: 86 QRSD: 92 T: 70 QT: 364 QTc: 414 Interpretive Statements 1100 Sinus rhythm 1470 with occasional supraventricular premature complexes 4068 Nonspecific Twave abnormality 9140 abnormal rhythm ECG Compared to ECG 06/02/2023 06:24:01 No significant changes Electronically Signed On 11-03-2023 6:44:45 EST by BLAINE MCKAY
--- NOTE | 2023-10-30 15:19 | ED.GENADUL1 ---
HPI - General Adult General Chief complaint: Upper Respiratory Infection Stated complaint: COUGH Time Seen by Provider: 10/30/23 15:15 Source: patient Mode of arrival: ambulance History of Present Illness HPI narrative: Patient is a 68-year-old male who presents to the emergency department by ambulance for cough for the last 2 weeks. He denies chest pain. He has a history of chronic bronchitis. He uses albuterol inhalers at home. He reports yellow and green sputum. He has had no objective fevers, vomiting or diarrhea. He states his lower extremities have been swollen and painful without redness or drainage. He has not seen his PCP for any of the symptoms, he has an appointment tomorrow in his PCP office. Related Data Home Medications Medication Instructions Recorded Confirmed albuterol sulfate 90 mcg/actuation 2 inh inhalation Q4H PRN wheezing 06/02/23 06/02/23 aerosol inhaler aripiprazole 2 mg tablet 2 mg PO DAILY 06/02/23 06/02/23 epinephrine 0.15 mg/0.15 mL 0.15 ml subcut PRN allergic 06/02/23 auto-injector (for 33 to 66 lb reaction patients) fluticasone propionate 50 2 spray intranasal DAILY 06/02/23 06/02/23 mcg/actuation nasal spray,suspension hydrocodone 10 mg-acetaminophen 2 tab PO Q6H PRN pain 06/02/23 06/02/23 325 mg tablet lisinopril 20 mg tablet 20 mg PO DAILY 06/02/23 06/02/23 pantoprazole 40 mg tablet,delayed 40 mg PO DAILY 06/02/23 06/02/23 release phenobarbital 32.4 mg tablet 32.4 mg PO TID 06/02/23 06/02/23 phenytoin sodium extended 100 mg 100 mg PO Q12H 06/02/23 06/02/23 capsule pregabalin 150 mg capsule 150 mg PO TID 06/02/23 06/02/23 primidone 50 mg tablet 100 mg PO Q12H 06/02/23 06/02/23 simvastatin 40 mg tablet 40 mg PO BEDTIME 06/02/23 06/02/23 tamsulosin 0.4 mg capsule 0.4 mg PO Q24H 06/02/23 06/02/23 tizanidine 4 mg tablet 8 mg PO Q8H 06/02/23 06/02/23 venlafaxine 150 mg 150 mg PO DAILY 06/02/23 06/02/23 capsule,extended release 24 hr albuterol sulfate 90 mcg/actuation 2 puff inhalation Q4H PRN 06/04/23 06/09/23 aerosol inhaler bronchospasm aripiprazole 2 mg tablet 2 mg PO QDAY 06/04/23 06/09/23 diphenhydramine HCl 50 mg capsule 50 mg PO QPM PRN sleep 06/04/23 06/09/23 (Banophen) fluticasone propionate 50 2 spray intranasal QDAY 06/04/23 06/09/23 mcg/actuation nasal spray,suspension hydrocodone 10 mg-acetaminophen 2 tab PO Q6H PRN pain 06/04/23 06/09/23 325 mg tablet lisinopril 20 mg tablet 20 mg PO QAM 06/04/23 06/09/23 pantoprazole 40 mg tablet,delayed 40 mg PO QDAY 06/04/23 06/09/23 release phenobarbital 32.4 mg tablet 32.4 mg PO Q8H 06/04/23 06/09/23 phenytoin sodium extended 100 mg 100 mg PO Q8H 06/04/23 06/09/23 capsule pregabalin 150 mg capsule 150 mg PO Q8H 06/04/23 06/09/23 primidone 50 mg tablet 100 mg PO BID 06/04/23 06/09/23 simvastatin 40 mg tablet 40 mg PO BEDTIME 06/04/23 06/09/23 tamsulosin 0.4 mg capsule 0.4 mg PO QDAY 06/04/23 06/09/23 tizanidine 4 mg tablet 8 mg PO Q8H 06/04/23 06/09/23 venlafaxine 150 mg 150 mg PO QDAY 06/04/23 06/09/23 capsule,extended release 24 hr venlafaxine 75 mg capsule,extended 75 mg PO QDAY 06/04/23 06/09/23 release 24 hr diphenhydramine HCl 25 mg capsule 25 mg PO BEDTIME PRN sleep 06/09/23 06/09/23 (Banophen) Previous Rx's Medication Instructions Recorded hydrocodone 5 mg-acetaminophen 325 1 tab PO TID PRN pain 5 days #20 06/02/23 mg tablet tabs doxycycline hyclate 100 mg tablet 100 mg PO BID 10 days #20 tabs 10/30/23 furosemide 20 mg tablet (Lasix) 20 mg PO DAILY #5 tabs 10/30/23 methylprednisolone 4 mg tablets in See Rx Instructions .Route 10/30/23 a dose pack (Medrol (Justin)) .COMPLEX #21 ea Allergies Allergy/AdvReac Type Severity Reaction Status Date / Time amoxicillin [From Augmentin] Allergy Unknown Verified 06/13/23 07:45 cefaclor [From Ceclor] Allergy Unknown Verified 06/13/23 07:45 clavulanic acid Allergy Unknown Verified 06/13/23 07:45 [From Augmentin] duloxetine [From Cymbalta] Allergy Unknown Verified 06/13/23 07:45 bee venom protein (honey bee) Allergy Anaphylaxis Verified 06/13/23 07:45 carbamazepine [From Tegretol] Allergy Weakness Verified 06/13/23 07:45 Review of Systems ROS Constitutional Denies: fever or chills Ears, nose, mouth, and throat Denies: throat pain or nasal congestion Cardiovascular Denies: chest pain Respiratory Reports: cough, change in phlegm color and chest congestion; Denies: shortness of breath Gastrointestinal Denies: nausea, vomiting or diarrhea Musculoskeletal Denies: back pain, neck pain, extremity pain or extremity swelling Integumentary/Breast Denies: rash Neurological Denies: headache PFSH PFSH Medical History (Updated 10/30/23 @ 16:14 by FRANCO Barillas) Epilepsy ?G40.909 - Epilepsy, unspecified, not intractable, without status epilepticus (ICD-10) Postoperative nausea and vomiting ?R11.2 - Nausea with vomiting, unspecified (ICD-10) ?Z98.890 - Other specified postprocedural states (ICD-10) Humerus fracture ?S42.309A - Unspecified fracture of shaft of humerus, unspecified arm, initial encounter for closed fracture (ICD-10) Diabetes ?E11.9 - Type 2 diabetes mellitus without complications (ICD-10) High cholesterol ?E78.00 - Pure hypercholesterolemia, unspecified (ICD-10) GERD (gastroesophageal reflux disease) ?K21.9 - Gastro-esophageal reflux disease without esophagitis (ICD-10) IBS (irritable bowel syndrome) ?K58.9 - Irritable bowel syndrome without diarrhea (ICD-10) Migraine ?G43.909 - Migraine, unspecified, not intractable, without status migrainosus (ICD-10) Seizures ?R56.9 - Unspecified convulsions (ICD-10) Vision loss ?H54.7 - Unspecified visual loss (ICD-10) Bronchitis ?J40 - Bronchitis, not specified as acute or chronic (ICD-10) Anxiety ?F41.9 - Anxiety disorder, unspecified (ICD-10) Depression ?F32.A - Depression, unspecified (ICD-10) Hematochezia ?K92.1 - Melena (ICD-10) Arthritis ?M19.90 - Unspecified osteoarthritis, unspecified site (ICD-10) Back pain ?M54.9 - Dorsalgia, unspecified (ICD-10) Neuropathy ?G62.9 - Polyneuropathy, unspecified (ICD-10) Chickenpox ?B01.9 - Varicella without complication (ICD-10) Measles ?B05.9 - Measles without complication (ICD-10) Mumps ?B26.9 - Mumps without complication (ICD-10) Hernia of anterior abdominal wall ?K43.9 - Ventral hernia without obstruction or gangrene (ICD-10) Inguinal hernia ?K40.90 - Unilateral inguinal hernia, without obstruction or gangrene, not specified as recurrent (ICD-10) Fusion of spine ?M43.20 - Fusion of spine, site unspecified (ICD-10) H/O reduction of closed fracture ?Z87.81 - Personal history of (healed) traumatic fracture (ICD-10) Retinal detachment ?H33.20 - Serous retinal detachment, unspecified eye (ICD-10) Chronic sinusitis ?J32.9 - Chronic sinusitis, unspecified (ICD-10) Rosacea ?L71.9 - Rosacea, unspecified (ICD-10) Colonoscopy planned (03/21/21) Surgical History (Updated 06/13/23 @ 07:45 by Adriane Joshua) S/P cataract extraction and insertion of intraocular lens ?Z98.49 - Cataract extraction status, unspecified eye (ICD-10) ?Z96.1 - Presence of intraocular lens (ICD-10) H/O nasal septoplasty ?Z98.890 - Other specified postprocedural states (ICD-10) Hx of tonsillectomy ?Z90.89 - Acquired absence of other organs (ICD-10) History of cholecystectomy ?Z90.49 - Acquired absence of other specified parts of digestive tract (ICD-10) Hx of anterior cruciate ligament tear reconstruction ?Z98.890 - Other specified postprocedural states (ICD-10) History of bunionectomy ?Z98.890 - Other specified postprocedural states (ICD-10) Family History (System 06/13/23 @ 07:45 by Adriane Joshua) Aunt Family history not known due to adoption Mother Family history of CHF (congestive heart failure) Family history of COPD (chronic obstructive pulmonary disease) Family history of heart disease Family history of hypertension Social History Within the past year, how often did you have a drink containing alcohol: never Score interpretation: A score less than 4 is consistent with normal alcohol consumption. Smoking status: Current every day smoker What tobacco products do you use: cigars Non-prescribed substance use: denies use Previous occupational history: DISABLED Highest level of school completed/degree received: Associate degree: academic program Exam Narrative Exam Narrative: Gen.: Awake, alert, in no distress Head: Normocephalic, atraumatic ENT: Moist mucous membranes Respiratory: No respiratory distress, Lungs are diminished and clear Cardio: Regular rate and rhythm Extremities: Moves extremities equally, 2+ pitting edema to the bilateral lower extremities with no erythema or open wounds or drainage Psych: Normal mood and affect Neuro: No focal neuro deficit Skin: Warm, dry, intact Constitutional Vital Signs, click to edit/add: Last Vital Signs Temp 98.0 F 10/30/23 15:15 Pulse 81 10/30/23 15:39 Resp 20 10/30/23 15:15 BP 133/85 10/30/23 15:15 Pulse Ox 96 10/30/23 15:39 O2 Del Method Room Air 10/30/23 15:39 Course Vital Signs Vital signs: Vital Signs Temperature 98.0 F 10/30/23 15:15 Pulse Rate 91 H 10/30/23 15:15 Respiratory Rate 20 10/30/23 15:15 Blood Pressure 133/85 10/30/23 15:15 Pulse Oximetry 96 10/30/23 15:15 Oxygen Delivery Method Room Air 10/30/23 15:15 Temperature 98.0 F 10/30/23 15:15 Pulse Rate 81 10/30/23 15:39 Respiratory Rate 20 10/30/23 15:15 Blood Pressure 133/85 10/30/23 15:15 Pulse Oximetry 96 10/30/23 15:39 Oxygen Delivery Method Room Air 10/30/23 15:39 Medical Decision Making MDM Narrative Medical decision making narrative: Patient with stable vital signs, labs are unremarkable and chest x-ray with no evidence of acute cardiopulmonary changes. Lab studies show no evidence of CHF. Peripheral edema is likely dependent, no evidence of cellulitis at this time. Patient encouraged to use compression socks for swelling. Patient will be started on doxycycline, prednisone, short course of Lasix. He has an appointment tomorrow with his PCP. He is hemodynamically stable with no respiratory distress in the ER. Return to the ER if symptoms change or worsen. Medical Records Medical records reviewed: Yes I reviewed the patient's medical records Lab Data Lab results reviewed: Yes I reviewed the patient's lab results Labs: Lab Results 10/30/23 10/30/23 Range/Units 15:25 15:30 WBC 11.4 H (4.0-11.0) 10^3/uL RBC 4.64 L (4.70-6.10) 10^6/uL Hgb 14.7 (14.0-18.0) g/dL Hct 42.5 (42.0-54.0) % MCV 91.6 (80.0-94.0) fL MCH 31.7 (25.9-34.0) pg MCHC 34.6 (29.9-35.2) g/dL RDW 14.9 (11.0-15.0) % Plt Count 250 (150-450) 10^3/uL MPV 10.0 (9.5-13.5) fL Neut % (Auto) 84.6 H (43.0-75.0) % Lymph % (Auto) 8.2 L (20.5-60.0) % [place] % (Auto) 5.8 (1.7-12.0) % Eos % (Auto) 0.5 L (0.9-7.0) % Baso % (Auto) 0.5 (0.2-2.0) % Neut # (Auto) 9.7 H (1.4-6.5) 10^3/uL Lymph # (Auto) 0.9 L (1.2-3.8) 10^3/uL [place] # (Auto) 0.7 (0.3-0.8) 10^3/uL Eos # (Auto) 0.1 (0.0-0.7) 10^3/uL Baso # (Auto) 0.1 (0.0-0.1) 10^3/uL Abs Immat Gran (auto) 0.04 H (0.00-0.03) 10^3/uL Imm/Tot Granulo (auto) 0.4 (0.0-0.5) % PT 10.1 (9.0-11.6) sec INR 0.95 Sodium 133 L (136-145) mmol/L Potassium 3.8 (3.5-5.1) mmol/L Chloride 97 L (98-107) mmol/L Carbon Dioxide 25.0 (21.0-32.0) mmol/L Anion Gap 14.8 BUN 3.0 L (7.0-18.0) mg/dL Creatinine 0.70 (0.70-1.30) mg/dL Est GFR ( Amer) >60 (>=60) Est GFR (Non-Af Amer) >60 (>=60) BUN/Creatinine Ratio 4.3 Glucose 107 H (74-106) mg/dL Lactate 1.6 (0.4-2.0) mmol/L Calcium 9.2 (8.5-10.1) mg/dL Total Bilirubin 0.5 (0.2-1.0) mg/dL AST 59 H (15-37) U/L ALT 44 (16-63) U/L Alkaline Phosphatase 143 H (46-116) U/L Troponin I High Sens 11.0 (4.0-76.1) pg/mL NT-Pro-B Natriuret Pep 68.0 (<=900.0) pg/mL Total Protein 7.8 (6.4-8.2) g/dL Albumin 3.7 (3.4-5.0) g/dL Globulin 4.1 g/dL Albumin/Globulin Ratio 0.9 Influenza Type A Ag Negative Influenza Type B Ag Negative SARS-CoV-2 Ag (CV2AG) Negative (NEGATIVE) Imaging Data Chest x-ray: Attestation: I have reviewed the pertinent imaging results. Radiologist's impression: ITS Impressions Chest X-Ray 10/30/23 15:32 IMPRESSION: Clear lungs Electronically authenticated by: HEYDI ELKINS Date: 10/30/2023 15:45 ECG Data Attestation: I personally reviewed and interpreted this ECG as follows: (Normal sinus rhythm at a rate of 92, occasional PVC with no acute ST elevation. EKG reviewed by attending physician) Discharge Plan Discharge Chief Complaint: Upper Respiratory Infection Clinical Impression: Upper respiratory infection, Edema, peripheral Patient Disposition: Home, Self-Care Time of Disposition Decision: 16:14 Condition: Good Prescriptions / Home Meds: New methylprednisolone [Medrol (Justin)] 4 mg tablets,dose pack See Rx Instructions .ROUTE .COMPLEX Qty: 21 0RF Rx Instructions: Taper as directed doxycycline hyclate 100 mg tablet 100 mg PO BID 10 Days Qty: 20 0RF furosemide [Lasix] 20 mg tablet 20 mg PO DAILY Qty: 5 0RF No Action albuterol sulfate 90 mcg/actuation HFA aerosol inhaler 2 inh INHALATION Q4H PRN (Reason: wheezing) aripiprazole 2 mg tablet 2 mg PO DAILY epinephrine 0.15 mg/0.15 mL auto-injector 0.15 ml subcut PRN (Reason: allergic reaction) fluticasone propionate 50 mcg/actuation spray,suspension 2 spray INTRANASAL DAILY hydrocodone-acetaminophen 10-325 mg tablet 2 tab PO Q6H PRN (Reason: pain) lisinopril 20 mg tablet 20 mg PO DAILY pantoprazole 40 mg tablet,delayed release (DR/EC) 40 mg PO DAILY phenobarbital 32.4 mg tablet 32.4 mg PO TID phenytoin sodium extended 100 mg capsule 100 mg PO Q12H pregabalin 150 mg capsule 150 mg PO TID primidone 50 mg tablet 100 mg PO Q12H simvastatin 40 mg tablet 40 mg PO BEDTIME tamsulosin 0.4 mg capsule 0.4 mg PO Q24H tizanidine 4 mg tablet 8 mg PO Q8H venlafaxine 150 mg capsule,extended release 24hr 150 mg PO DAILY hydrocodone-acetaminophen 5-325 mg tablet 1 tab PO TID PRN (Reason: pain) 5 Days Qty: 20 0RF albuterol sulfate 90 mcg/actuation HFA aerosol inhaler 2 puff INHALATION Q4H PRN (Reason: bronchospasm) aripiprazole 2 mg tablet 2 mg PO QDAY fluticasone propionate 50 mcg/actuation spray,suspension 2 spray INTRANASAL QDAY hydrocodone-acetaminophen 10-325 mg tablet 2 tab PO Q6H PRN (Reason: pain) pantoprazole 40 mg tablet,delayed release (DR/EC) 40 mg PO QDAY lisinopril 20 mg tablet 20 mg PO QAM phenobarbital 32.4 mg tablet 32.4 mg PO Q8H phenytoin sodium extended 100 mg capsule 100 mg PO Q8H pregabalin 150 mg capsule 150 mg PO Q8H primidone 50 mg tablet 100 mg PO BID simvastatin 40 mg tablet 40 mg PO BEDTIME tamsulosin 0.4 mg capsule 0.4 mg PO QDAY tizanidine 4 mg tablet 8 mg PO Q8H venlafaxine 150 mg capsule,extended release 24hr 150 mg PO QDAY venlafaxine 75 mg capsule,extended release 24hr 75 mg PO QDAY diphenhydramine HCl [Banophen] 50 mg capsule 50 mg PO QPM PRN (Reason: sleep) diphenhydramine HCl [Banophen] 25 mg capsule 25 mg PO BEDTIME PRN (Reason: sleep) Rx Instructions: 25 mg orally PRN; Instructions: Upper Respiratory Infection (ED), Leg Edema (ED) Stand Alone Forms: Portal Instructions Referrals: HARPER PERRY [Primary Care Provider] - 10/31/23
--- OUTSIDE RECORDS SUMMARY | 2023-10-30 15:26 | XMS_ITS | CCD ---
Author Name Unknown Address [address] [place] [address] Organization [facility] Care Team Providers Care Bilingual Spanish Inbound Sales Name Role Phone ELLEN MORRIS Unavailable Unavailable BEA EPSTEIN Unavailable Unavailable ELIOT VAZQUEZ Unavailable Unavailable MITUL RICHMOND Unavailable Unavailable KS Unavailable Unavailable QASIMDUTCH NARANJO Unavailable Unavailable HEIDT, HEYDI Gambino Unavailable Unavailable VICKY, DR SALEEM Primary Care Unavailable VICKY, DR SALEEM Admitting Unavailable VICKY, DR SALEEM Attending Unavailable VICKY, DR SALEEM Consulting Unavailable NEFCYALEXX Consulting Unavailable VICKY, DR SALEEM Primary Care Unavailable VICKY, DR SALEEM Admitting Unavailable VICKY, DR SALEEM Attending Unavailable Allergies Allergy Classification Reported Allergen(s) Allergy Type Date of Onset Reaction(s) Facility (1 source) Bee/Wasp/Ant venom; Translations: [BEE STINGS] Propensity to adverse reactions (disorder) 7 [facility] Repository (2 sources) carBAMazepine Drug Allergy 7 [facility] Repository (2 sources) cefaclor Drug Allergy 7 [facility] Repository (2 sources) DULoxetine Drug Allergy 7 [facility] Repository (1 source) OXcarbazepine Drug Allergy 7 [facility] Repository (1 source) bee venom Drug allergy (disorder) 7 [facility] Repository Problems Active Problems Problem Classification Problem Date Documented Da te Episodic/Chronic Chronic obstructive pulmonary disease and bronchiectasis (1 source) Chronic obstructive pulmonary disease, unspecified; Translations: [CHRONIC OBSTRUCTIVE PULMONARY DISEASE, UNSPECIFIED] Onset: 06-08-2017 Chronic Diabetes mellitus without complication (1 source) Type 2 diabetes mellitus without complications; Translations: [TYPE 2 DIABETES MELLITUS WITHOUT COMPLICATIONS] Onset: 06-08-2017 Chronic Epilepsy; convulsions (1 source) Epilepsy, unspecified, not intractable, without status epilepticus; Translations: [EPILEPSY, UNSP, NOT INTRACTABLE, WITHOUT STATUS EPILEPTICUS] Onset: 06-08-2017 Chronic External Injury - Fall (1 source) Fall on same level from slipping, tripping and stumbling with subsequent striking against other object, initial encounter; Translations: [FALL SAME LEV FROM SLIP/TRIP W STRIKE AGNST OTH OBJECT, INIT] Onset: 06-08-2017 External Injury - Place of occurrence (1 source) Other place in unspecified non-institutional (private) residence as the place of occurrence of the external cause; Translations: [OTH PLACE IN UNSP NON-INSTITUT (PRIVATE) RESIDENCE PLACE] Onset: 06-08-2017 Other nervous system disorders (1 source) Other chronic pain; Translations: [OTHER CHRONIC PAIN] Onset: 06-08-2017 Chronic Other non-traumatic joint disorders (4 sources) Pain in right ankle and joints of right foot; Translations: [PAIN IN RIGHT ANKLE] Onset: 02-06-2023 Episodic Spondylosis; intervertebral disc disorders; other back problems (1 source) Other spondylosis, cervical region; Translations: [OTHER SPONDYLOSIS, CERVICAL REGION] Onset: 06-08-2017 Chronic Substance-related disorders (1 source) Nicotine dependence, cigarettes, uncomplicated; Translations: [NICOTINE DEPENDENCE, CIGARETTES, UNCOMPLICATED] Onset: 06-08-2017 Chronic Unclassified (2 sources) Unknown / UNK(Unknown) Onset: 06-08-2017 Past or Other Problems Problem Classification Problem Date Documented Da te Episodic/Chronic Allergic reactions (1 source) Allergy status to other anti-infective agents status; Translations: [ALLERGY STATUS TO OTHER ANTI-INFECTIVE AGENTS STATUS] Onset: 06-08-2017 Episodic Other fractures (1 source) Fracture of other parts of neck, initial encounter; Translations: [FRACTURE OF OTHER PARTS OF NECK, INITIAL ENCOUNTER] Onset: 06-08-2017 Episodic Other injuries and conditions due to external causes (3 sources) Unspecified injury of neck, initial encounter; Translations: [Traumatic subcutaneous emphysema, initial encounter] Onset: 06-08-2017 Episodic Spondylosis; intervertebral disc disorders; other back problems (1 source) Dorsalgia, unspecified; Translations: [DORSALGIA, UNSPECIFIED] Onset: 06-08-2017 Episodic Results Test Name Value Interpretation Reference Range Facility XR ANKLE RT MIN 3 VIEWSon XR ANKLE RT MIN 3 VIEWS EXAM: XR ANKLE RT MIN 3 VIEWS HISTORY: Arthralgia of the ankle and/or foot after twisting injury 4 days ago. COMPARISON: None. TECHNIQUE: 3 views of the right ankle were obtained. FINDINGS: There is no evidence of an acute fracture or dislocation. The mortise is intact. No osteochondral injury is identified. The subtalar joints are intact. No significant soft tissue swelling is identified. IMPRESSION: No acute fracture or dislocation. The joint spaces are intact. Electronically authenticated by: ALEXX MARIE Date: 2023-02-06 13:[address] [facility] Discharge Summaryon 06-10-20 17 Discharge Summary MR[id number] Admitted: 06/08/2017 Discharged: 06/09/2017 Date of : 1955 Physician: Heydi Walls M.D. DISCHARGE SUMMARYDISCHARGE ATTENDING: Dr. Walls.PRINCIPAL DIAGNOSIS: Neck injury following a fall on railing.SECONDARY DIAGNOSES: Chronic obstructive pulmonary disease, epilepsy, andtype 2 diabetes.PROCEDURES PERFORMED AND TREATMENT RENDERED: CTC, CT neck, x-ray ofabdomen and pelvis were performed in the emergency department at [facility]. CTC revealed cervical spondylosis with multi-facet DJD,otherwise no acute injuries. CT neck shows some right subcu emphysema inthe prevertebral tissue from the skull base to the superior mediastinum.X-ray of the pelvis and hip were negative. Esophagram was done at [facility] torule out esophageal rupture. Esophagram came back negative. The patientwas started on normal diet and home medications were resumed. Thepatient's condition at discharge was stable. The patient was seen by PTand OT, which recommended home PT, otherwise [facility]. The patient was discharged home with a prescriptionfor Percocet and for Colace. Instructions [facility].Electronically Signed by:Heydi Walls M.D. 06/10/2017 12:39 P Heydi Walls M.D. I personally saw this patient on the day of the encounter, performed thekey portion(s) of the service and participated in the management andconfirm the resident's documentation. Please note there may be anadditional personal documentation from me. Date Dict: 06/09/2017/04:39 P/WYATT Landrumate Trans: 06/10/2017 02:22 A/ToritoN_JN:[id number] cc: Mitul Richmond M.D. [address] [place] [id number] Normal [facility] CBC W/DIFFon 06-09-2017 Basophils Auto #/vol (Bld) 1.0 % Normal 0.0-2.0 [facility] Comment on above: Order Comment: No: D o not add to previous draw Performed By: #### 5 0103 ####[facility] [facility].[address] Eosinophils/100 leukocytes 3.7 % Normal 0.0-5.0 [facility] Comment on above: Order Comment: No: D o not add to previous draw Performed By: #### 5 0103 ####[facility] [place] [address], [facility] Erythrocyte distribution width Auto Ratio (RBC) 16.0 % Normal 11.5-16.9 [facility] Comment on above: Order Comment: No: D o not add to previous draw Performed By: #### 5 0103 ####[facility] [place] [address], [facility] Erythrocytes (RBC) 4.80 mill/mm3 Normal 4.30-5.90 [facility] Comment on above: Order Comment: No: D o not add to previous draw Performed By: #### 5 0103 ####[facility] [place] [address], [facility] Hematocrit (HCT) 45.6 % Normal 39.0-55.0 [facility] Comment on above: Order Comment: No: D o not add to previous draw Performed By: #### 5 0103 ####[facility] Hemoglobin mass conc (Bld) 15.3 g/dL Normal 13.9-16.3 [facility] Comment on above: Order Comment: No: D o not add to previous draw Performed By: #### 5 0103 ####[facility] Lymphocytes/100 leukocytes 28.3 % Normal 20.0-40.0 [facility] Comment on above: Order Comment: No: D o not add to previous draw Performed By: #### 5 0103 ####[facility] [facility].[address] MCH 31.9 pg Normal 24.0-32.0 [facility] Comment on above: Order Comment: No: D o not add to previous draw Performed By: #### 5 0103 ####[facility] MCHC mass conc (RBC) 33.6 g/dL Normal 32.0-36.0 [facility] Comment on above: Order Comment: No: D o not add to previous draw Performed By: #### 5 0103 ####[facility] [place] [address], [facility] MCV 95.1 fL Normal 80.0-100.0 [facility] Comment on above: Order Comment: No: D o not add to previous draw Performed By: #### 5 0103 ####[facility] [place] [address], [facility] METHOD Normal [facility] Comment on above: Order Comment: No: D o not add to previous draw Result Comment: Auto mated differential performedNormal RBC Morphology Performed By: #### 5 0103 ####[facility] [place] [address], [facility] MONOS 8.4 % High 2-8 [facility] Comment on above: Order Comment: No: D o not add to previous draw Performed By: #### 5 0103 ####[facility] [place] [address], [facility] Neutrophils/100 leukocytes 58.6 % Normal 50-70 [facility] Comment on above: Order Comment: No: D o not add to previous draw Performed By: #### 5 0103 ####[facility] [place] [address], [facility] PLAT CNT 144 Thou/mm3 Normal 100-400 [facility] Comment on above: Order Comment: No: D o not add to previous draw Performed By: #### 5 0103 ####[facility] [place] [address], [facility] WBC (Leukocytes) 5.4 Thou/mm3 Normal 4.0-10.0 [facility] Comment on above: Order Comment: No: D o not add to previous draw Performed By: #### 5 0103 ####[facility] [place] [address], [facility] COMP METABOLIC PANELon 06-09 Alanine aminotransferase (ALT) 20 U/L Normal 7-52 [facility] Comment on above: Order Comment: No: D o not add to previous draw Performed By: #### 4 1000, 88131, 40274 ####[facility] [place] [address], [facility] Albumin 3.6 g/dL Normal 3.5-5.7 [facility] Comment on above: Order Comment: No: D o not add to previous draw Performed By: #### 4 1000, 44827, 58472 ####[facility] [place] [address], [facility] ALKALINE PHOSPH 79 IU/L Normal 34-104 [facility] Comment on above: Order Comment: No: D o not add to previous draw Performed By: #### 4 1000, 74519, 30455 ####[facility] [place] [address], [facility] Aspartate aminotransferase (AST) 21 U/L Normal 13-39 [facility] Comment on above: Order Comment: No: D o not add to previous draw Performed By: #### 4 1000, 42350, 73215 ####[facility] [place] [address], [facility] Bilirubin (total) 0.6 mg/dL Normal 0.3-1.0 [facility] Comment on above: Order Comment: No: D o not add to previous draw Performed By: #### 4 1000, 79919, 70934 ####[facility] [place] [address], [facility] Calcium 8.5 mg/dL Low 8.6-10.3 [facility] Comment on above: Order Comment: No: D o not add to previous draw Performed By: #### 4 1000, 89020, 93359 ####[facility] [place] [address], [place] Chloride 105 mmol/L Normal 98-107 [facility] Comment on above: Order Comment: No: D o not add to previous draw Performed By: #### 4 1000, 89482, 66954 ####[facility] [place] [address], [place] CO2 23 mmol/L Normal 21-31 [facility] Comment on above: Order Comment: No: D o not add to previous draw Performed By: #### 4 1000, 44477, 87274 ####[facility] [place] [address], [place] Creatinine 0.69 mg/dL Low 0.70-1.30 [facility] Comment on above: Order Comment: No: D o not add to previous draw Performed By: #### 4 1000, 50269, 16749 ####[facility] [place] [address], [facility] eGFR (black) mL/min/{1.73_m2} Normal >60 [facility] Comment on above: Order Comment: No: D o not add to previous draw Performed By: #### 4 1000, 42227, 64390 ####[facility] [place] [address], [facility] eGFR (non-black) mL/min/{1.73_m2} Normal >60 Th e [facility] Comment on above: Order Comment: No: D o not add to previous draw Performed By: #### 4 1000, 07982, 94867 ####[facility] [place] [address], [facility] Glucose mass conc 72 mg/dL Normal 70-100 [facility] Comment on above: Order Comment: No: D o not add to previous draw Performed By: #### 4 1000, 23693, 50401 ####[facility] [place] [address], [facility] Potassium molar conc 4.0 mmol/L Normal 3.5-5.1 [facility] Comment on above: Order Comment: No: D o not add to previous draw Performed By: #### 4 1000, 05614, 22234 ####[facility] [place] [address], [facility] Protein 5.8 g/dL Low 6.0-8.3 [facility] Comment on above: Order Comment: No: D o not add to previous draw Performed By: #### 4 1000, 43759, 10548 ####[facility] [place] [address], [place] Sodium 135 mmol/L Low 136-145 [facility] Comment on above: Order Comment: No: D o not add to previous draw Performed By: #### 4 1000, 65224, 06054 ####[facility] [place] [address], [facility] Urea nitrogen 7 mg/dL Normal 7-25 [facility] Comment on above: Order Comment: No: D o not add to previous draw Performed By: #### 4 1000, 72151, 89798 ####[facility] [place] [address], [facility] LACTATE BLOODon 06-09-2017 Lactate 0.5 mmol/L Normal .5-2.2 [facility] Comment on above: Order Comment: No: D o not add to previous draw Performed By: #### 1 0054 ####[facility] [place] [address], [facility] MAGNESIUM BLOODon 06-09-2017 Magnesium 2.0 mg/dL Normal 1.9-2.7 [facility] Comment on above: Order Comment: No: D o not add to previous draw Performed By: #### 4 1000, 89981, 87924 ####[facility] [place] [address], [facility] PHOSPHORUS BLOODon 7 Phosphate 3.0 mg/dL Normal 2.5-5.0 [facility] Comment on above: Order Comment: No: D o not add to previous draw Performed By: #### 4 1000, 56184, 77799 ####[facility] [place] [address], [facility] BASIC METABOLIC PANELon 05-21 Calcium 8.7 mg/dL Normal 8.6-10.3 [facility] Comment on above: Order Comment: Yes: Add to Previous draw if able Performed By: #### 0 0071 ####[facility] [place] [address], [facility] Chloride 102 mmol/L Normal 98-107 [facility] Comment on above: Order Comment: Yes: Add to Previous draw if able Performed By: #### 0 0071 ####[facility] [place] [address], [facility] CO2 25 mmol/L Normal 21-31 [facility] Comment on above: Order Comment: Yes: Add to Previous draw if able Performed By: #### 0 0071 ####[facility] [place] [address], [facility] Creatinine 0.73 mg/dL Normal 0.70-1.30 [facility] Comment on above: Order Comment: Yes: Add to Previous draw if able Performed By: #### 0 0071 ####[address] [place] [address], [facility] eGFR (black) mL/min/{1.73_m2} Normal >60 [facility] Comment on above: Order Comment: Yes: Add to Previous draw if able Performed By: #### 0 0071 ####[place] [address] [facility] [place] [address], [facility] eGFR (non-black) mL/min/{1.73_m2} Normal >60 Th e [facility] Comment on above: Order Comment: Yes: Add to Previous draw if able Performed By: #### 0 0071 ####[place] [address] [place] [address], [facility] Glucose mass conc 97 mg/dL Normal 70-100 [facility] Comment on above: Order Comment: Yes: Add to Previous draw if able Performed By: #### 0 0071 ####[place] [address] [place] [address], [facility] Potassium molar conc 3.9 mmol/L Normal 3.5-5.1 [facility] Comment on above: Order Comment: Yes: Add to Previous draw if able Performed By: #### 0 0071 ####[address] Sodium 133 mmol/L Low 136-145 [facility] Comment on above: Order Comment: Yes: Add to Previous draw if able Performed By: #### 0 0071 ####[address] Urea nitrogen 6 mg/dL Low 7-25 [facility] Comment on above: Order Comment: Yes: Add to Previous draw if able Performed By: #### 0 0071 ####[place] [address] [facility].[address] CBC COMPLETE BLOOD COUNTon 06-08-2017 Erythrocyte distribution width Auto Ratio (RBC) 16.3 % Normal 11.5-16.9 [facility] Comment on above: Order Comment: Yes: Add to Previous draw if able Performed By: #### 5 0608 ####[address] Erythrocytes (RBC) 4.73 mill/mm3 Normal 4.30-5.90 [facility] Comment on above: Order Comment: Yes: Add to Previous draw if able Performed By: #### 5 0608 ####[address] Hematocrit (HCT) 45.0 % Normal 39.0-55.0 [facility] Comment on above: Order Comment: Yes: Add to Previous draw if able Performed By: #### 5 0608 ####[place] [address] [facility].[address] Hemoglobin mass conc (Bld) 15.4 g/dL Normal 13.9-16.3 [facility] Comment on above: Order Comment: Yes: Add to Previous draw if able Performed By: #### 5 0608 ####[address] [place] [address], [facility] MCH 32.5 pg High 24.0-32.0 [facility] Comment on above: Order Comment: Yes: Add to Previous draw if able Performed By: #### 5 0608 ####[address] MCHC mass conc (RBC) 34.2 g/dL Normal 32.0-36.0 [facility] Comment on above: Order Comment: Yes: Add to Previous draw if able Performed By: #### 5 0608 ####[address] MCV 95.1 fL Normal 80.0-100.0 [facility] Comment on above: Order Comment: Yes: Add to Previous draw if able Performed By: #### 5 0608 ####[address] PLAT CNT 157 Thou/mm3 Normal 100-400 [facility] Comment on above: Order Comment: Yes: Add to Previous draw if able Performed By: #### 5 0608 ####[address] WBC (Leukocytes) 9.0 Thou/mm3 Normal 4.0-10.0 [facility] Comment on above: Order Comment: Yes: Add to Previous draw if able Performed By: #### 5 0608 ####[address] ESOPHAGRAMon 06-08-2017 ESOPHAGRAM [facility] [place] [id number] P atient Name: DUTCH MONIQUE : 1955Sex: MAge: Race: WhiteMRN: [id number]. Location: [id number] Status: IVisit #: [id number] Date: 06/08/2017 3:35:00 PMCompleted Date: 06/08/2017 05:01 PMRequesting Provider: GUERITA HICKS Attending Provider: BEA EPSTEIN Report Copy To: Signs & Symptoms: DysphagiaHistory: Patient history not availableComments: R/O PerforationExam: ESOPHAGRAMAccession #: [id number] ======ESOPHAGRAM 06/08/2017 5:01 PM EDT SIGNS AND SYMPTOMS: Dysphagia TECHNOLOGIST COMMENTS: esophogram to look for perforation s/p fall and fx of hyoid bone 1.4 min fluoro time 3 oz Omni 350 QUESTION FOR THE RADIOLOGIST: R/O Perforation CONTRAST: Contrast: OMNIPAQUE 350 (LOCM), 3 ounce, Oral COMPARISON: none FINDINGS: 5 fluoroscopic spot images. Fluoroscopy time 1.4 minutes.Normal swallowing mechanism was demonstrated. The upper esophagus showed normal caliber with no evidence of perforation. IMPRESSION:No evidence of perforation. Approved by:Arcelia Colin on 06/08/2017 5:09 PM EDT I, Dutch De Souza, have reviewed the images and report and concur with these findings. Electronically signed by:Dutch De Souza. Transcribed by: [email or web address], User Resident: ARCELIA COLINElectronically Signed by: DUTCH DE SOUZA @ 06/09/2017 07:05 AMI personally read this/these film(s) with this resident Normal [facility] Comment on above: Order Comment: R/O P erforation History and Physicalon 06-08 History and Physical [id number] Admitted: 06/08/2017 Date of : 1955 Attending Physician: Bea Epstein MD Room #: [id number] Discharge Date: HISTORY AND PHYSICALCHIEF COMPLAINT: Neck pain/trouble speaking.HISTORY OF PRESENT ILLNESS: The patient is a 61-year-old male, who wasgoing to get his mail at 10:00 p.m. on the night of 06/07/2017, and ended uptripping and falling on some railing and injuring his neck in the fall. Hedid not hit his head, and there was no loss of consciousness. He waswalking with his cane at this time, and the cane had impacted in the lowerabdominal area, so he notes some soreness there as well. He also notessome lower back pain, which he says is chronic and not new. He initiallysaid the pain was 8.5/10 in the neck; however, he did not seek treatmentfor a couple of hours until he started developing increasing persistentpain in the neck area following by developing trouble speaking/hoarseness.[facility] eventually [facility] and [facility], where a CT of the neck showed some prevertebral subcutaneousemphysema as well as a fracture of the right portion of the hyoid bone. [facility]was [facility] for furtherevaluation in stable condition.PAST MEDICAL HISTORY: Type 2 diabetes mellitus, epilepsy, COPD/chronicbronchitis, and chronic back pain.PAST SURGICAL HISTORY: Back surgery, right knee ACL surgery,cholecystectomy, nose surgery, and teeth removal.FAMILY HISTORY: Noncontributory.SOCIAL HISTORY: One-half pack per day smoker for at least 14 years. Hehad quit before this time for 23 years, but smoked before then. No alcoholor drug use.MEDICATIONS: [place], tizanidine, phenytoin, primidone, Effexor XR, Zocor,lamotrigine, zolpidem, Lyrica, phenobarbital, pantoprazole, baclofen, andLevitra.ALLERGIES: Bee venom, Ceclor, Cymbalta, and Tegretol.REVIEW OF SYSTEMS: A 12-point review of systems was obtained and wasnegative except for what is noted in the HPI. In addition, the patientreports having a left superficial skin abrasion on the left wrist due tohis medical bracelet digging into his skin from the fall. Other pertinentpositives were as noted in the HPI.LABORATORY DATA: None.IMAGING DATA: CT of cervical spine on 06/08/2017 at outside hospital showsno acute fractures in the cervical spine or prevertebral soft tissueswelling, but does show cervical spondylosis with multilevel facet DJD. CTof the neck at outside hospital shows right submandibular soft tissuecontusion associated with soft tissue edema and extensive soft tissueemphysema, dissecting superiorly through the right prevertebral andparapharyngeal/perivas cular soft tissues to right skull base and inferiorlythrough the prevertebral and right anterolateral neck soft tissue tosuperior mediastinum as well as a mildly displaced fracture in the rightportion of the hyoid bone. There is no pneumothorax in visualized upperlungs and intact mandible. There are bilateral maxillary antrostomychanges with mild mucosal thickening in the ethmoid sinuses. Pelvic x-rayshows no fractures or acute abnormalities of the pelvis and right hip. Noacute fractures or dislocations. X-ray of the lumbar spine and sacrumshows no evidence of acute fracture or dislocation, although there isvariability of joint spacing throughout the lumbar spine.PHYSICAL EXAMINATION: VITAL SIGNS: Temperature 97.9 degrees Fahrenheit,heart rate 86, respiratory rate 23, blood pressure 138/67, O2 honppbgnws27% on room air.GENERAL: No acute distress. Hoarseness when speaking.HEENT: Normocephalic, atraumatic. Pupils equally round, reactive tolight.NECK: Well demarcated line of bruising on the left across the neck. Nosubq air felt.CHEST AND LUNGS: Clear to auscultation bilaterally.CARDIOVASCULA R: Regular rate and rhythm. No murmurs appreciated.ABDOMINAL EXAM: Soft, nondistended, mild tenderness to palpation diffuselywith mild rebound tenderness.EXTERNAL GENITALIA/RECTAL: Deferred.LYMPHATIC: No lymphadenopathy appreciated.EXTREMITIES: Moves all extremities x4. No edema or tenderness other thanin the left wrist.NEUROLOGICAL: Alert and oriented x3. No focal motor-sensory deficits.IMPRESSION: The patient is a 61-year-old male, who suffered a traumaticfall on his neck and now presents with increased basxssov-yx-tqpchm painand hoarseness with imaging showing prevertebral subcutaneous emphysema aswell as a mildly displaced fracture in the right portion of the hyoidbone.PLAN:1. The patient is admitted to the Trauma Service under Dr. Epstein.2. We will keep the patient n.p.o. for now until an esophagram can be obtained to assess for any esophageal perforation, after this time he can take medication p.o. and can be started on clear liquid diet potentially.3. Pain control.4. We will obtain routine labs.5. The patient will be on IV fluids for now, and we will continue to monitor his respiratory status. He is currently saturating above 90% on room air, but we will make sure that he does not develop any acute signs of dyspnea or desaturations; otherwise, we may have to intubate the patient.6. We will discuss any further plans with the attending.ATTENDING ADDENDUM:Pt seen on admission to the floor. D/w residents. S/p fall, striking hisanterior neck. Concern for laryngeal injury with voice changes.Typically this will resolve without operative intervention. Admit for evalfor esophageal injury and airway monitoring.We will continue management of his multiple chronic medical problems.Electronically Signed by:Bea Epstein MD 07/01/2017 08:15 A Bea Epstein MD I personally saw this patient on the day of the encounter, performed thekey portion(s) of the service and participated in the management andconfirm the resident's documentation. Please note there may be anadditional personal documentation from me. Date Dict: 06/08/2017/12:48 P/Rell Cuellar Trans: 06/08/2017 08:50 [id number] Normal [facility] TOX PANEL URINEon 06-08-2017 50 THC Negative Normal NEGATIVE [facility] Comment on above: Order Comment: Yes: Add to Previous draw if able Performed By: #### 3 1079 ####[facility] [place] [address], [facility] BARBITURATES Positive Abnormal NEGATIVE [facility] Comment on above: Order Comment: Yes: Add to Previous draw if able Performed By: #### 3 1079 ####[facility] [place] [address], [facility] MONO AMPHET Negative Normal NEGATIVE [facility] Comment on above: Order Comment: Yes: Add to Previous draw if able Performed By: #### 3 1079 ####[facility] [place] [address], [facility] PROPOXYPHENE Negative Normal NEGATIVE [facility] Comment on above: Order Comment: Yes: Add to Previous draw if able Performed By: #### 3 1079 ####[facility] [place] [address], [facility] TRICYCLICS Negative Normal NEGATIVE [facility] Comment on above: Order Comment: Yes: Add to Previous draw if able Performed By: #### 3 1079 ####[facility] [place] [address], [facility] Urine, benzodiazepines presence Negative Normal NEGATIVE [facility] Comment on above: Order Comment: Yes: Add to Previous draw if able Performed By: #### 3 1079 ####[facility] [place] [address], [facility] Urine, cocaine presence Negative Normal NEGATIVE [facility] Comment on above: Order Comment: Yes: Add to Previous draw if able Performed By: #### 3 1079 ####[facility] [place] [address], [facility] Urine, methadone presence Negative Normal NEGATIVE [facility] Comment on above: Order Comment: Yes: Add to Previous draw if able Performed By: #### 3 1079 ####[facility] [place] [address], [place] Urine, opiates presence Positive Abnormal NEGATIVE [facility] Comment on above: Order Comment: Yes: Add to Previous draw if able Performed By: #### 3 1079 ####[facility] [place] [address], [facility] Urine, phencyclidine presence Negative Normal NEGATIVE [facility] Comment on above: Order Comment: Yes: Add to Previous draw if able Performed By: #### 3 1079 ####[facility] [place] [address], [facility] Encounters Encounter Date Encounter Type Care Provider Facility Start: 02-06-2023 End: 02-07-[address] MITUL RICHMOND Facility: Start: 08-14-2017 Ambulatory ELLEN Patel ty:[facility] Start: 06-08-2017 End: 06-09-2017 Ambulatory BEA EPSTEIN Facility:[facility] Procedures Date Procedure Procedure Detail Performing Clinician Start: 06-08-2017 FLUOROSCOPY OF ESOPH [place] USING OTHER CONTRAST DUTCH DE SOUZA Payers Date Payer Category Payer Medicaid [id number] 1958 Medicare [id number] 1955 Unknown [id number] 1955 Unknown [id number] Unknown [id number] Summary Purpose Family History No Family History Records FoundNo Family History Records FoundNo Family History Records Found Advance Directives No Advanced Directives Records FoundNo Advanced Directives Records FoundNo Advanced Directives Records Found Additional Source Comments (unrecognized sect ion and content) No Status Records FoundNo Status Records FoundNo Status Records Found INFORMATION SOURCE (unrecogn ized section and content) DATE CREATED AUTHOR 04/15/2018 [facility] DATE CREATED AUTHOR AUTHOR'S ORGANIZ ATION 04/15/2018 [facility] DATE CREATED AUTHOR AUTHOR'S ORGANIZ ATION 02/14/2023 [facility] FOR RECORDS PERTAINING TO PATIENTS WHO ARE OR HAVE BEEN ENROLLED IN A CHEMICAL DEPENDENCY/SUBSTANCEABUSE PROGRAM, SOME INFORMATION MAY BE OMITTED. This clinical summary was aggregated from multiple sources. Caution should be exercised in using it in the provision of clinical care. This summary normalizes information from multiple sources, and as a consequence, information in this document may materially change the coding, format and clinical context of patient data. In addition, data may be omitted in some cases. CLINICAL DECISIONS SHOULD BE BASED ON THE PRIMARY CLINICAL RECORDS. [facility]. provides no warranty or guarantee of the accuracy or completeness of information in this document.
--- NOTE | 2023-10-30 15:32 | XR_ITS ---
[address] [address] Patient Name: DUTCH MONIQUE MRN: [id number] date: 1955 Sex: M Assigned Patient Location: ER Current Patient Location: ER Accession/Order Number: [id number] Exam Date: 10/30/2023 15:25 Report Date: 10/30/2023 15:45 At the request of: KENJI LOPEZ Procedure: XR chest 1V EXAMINATION: XR chest 1V HISTORY: Cough COMPARISON: No relevant comparison available. TECHNIQUE: AP portable FINDINGS: LUNGS: No significant pulmonary parenchymal abnormalities. VASCULATURE: No increased pulmonary vasculature. PLEURA: No pneumothorax, effusion, or pleural thickening. CARDIAC: No cardiomegaly or cardiac silhouette abnormality. MEDIASTINUM: No visible mass or adenopathy. BONES: No fracture or visible bone lesion. OTHER: Gaseous distention of bowel loops beneath both hemidiaphragms XR/XR chest 1V IMPRESSION: Clear lungs Electronically authenticated by: HEYDI ELKINS Date: 10/30/2023 15:45
[2023-10-30 15:37] LABS: Basophils Absolute Auto 0.1 10^3/uL (0.0-0.1); Basophils Percent Auto 0.5 % (0.2-2.0); Eosinophils Absolute Auto 0.1 10^3/uL (0.0-0.7); Eosinophils Percent Auto 0.5 % (0.9-7.0); Hematocrit 42.5 % (42.0-54.0); Hemoglobin 14.7 g/dL (14.0-18.0); Immature Granulocytes Abs Auto 0.04 10^3/uL (0.00-0.03); Immature Granulocytes Pct Auto 0.4 % (0.0-0.5); Lymphocytes Absolute Auto 0.9 10^3/uL (1.2-3.8); Lymphocytes Percent Auto 8.2 % (20.5-60.0); Mean Corpuscular HGB Conc 34.6 g/dL (29.9-35.2); Mean Corpuscular Hemoglobin 31.7 pg (25.9-34.0); Mean Corpuscular Volume 91.6 fL (80.0-94.0); Monocytes Absolute Auto 0.7 10^3/uL (0.3-0.8); Monocytes Percent Auto 5.8 % (1.7-12.0); Neutrophils Absolute Auto 9.7 10^3/uL (1.4-6.5); Neutrophils Percent Auto 84.6 % (43.0-75.0); Platelet Count 250 10^3/uL (150-450); Red Blood Count 4.64 10^6/uL (4.70-6.10); Red Cell Distribution Width 14.9 % (11.0-15.0); White Blood Count 11.4 10^3/uL (4.0-11.0)
[2023-10-30] MEDS: ALBUTEROL SULFATE 2.5 MG/3 ML VIAL NEB IH (15:38)
[2023-10-30 15:50] LABS: INR 0.95; Prothrombin Time 10.1 sec (9.0-11.6)
[2023-10-30 15:51] LABS: Anion Gap 14.8
[2023-10-30 15:54] LABS: Influenza Virus A Antigen Negative; Influenza Virus B Antigen Negative; Internal Control Within Normal Limits; SARS-CoV-2 Ag NEGATIVE (NEGATIVE)
[2023-10-30 15:56] LABS: Lactate/Lactic Acid 1.6 mmol/L (0.4-2.0)
[2023-10-30 15:59] LABS: Alanine Aminotransferase 44 U/L (16-63); Albumin Globulin Ratio 0.9; Albumin Level 3.7 g/dL (3.4-5.0); Alkaline Phosphatase 143 U/L (46-116); Aspartate Amino Transferase 59 U/L (15-37); BUN Creatinine Ratio 4.3; Bilirubin Total 0.5 mg/dL (0.2-1.0); Calcium 9.2 mg/dL (8.5-10.1); Chloride 97 mmol/L (98-107); Estimated GFR (African America >60 (>=60); Estimated GFR (Non-African Ame >60 (>=60); Globulin 4.1 g/dL; Glucose 107 mg/dL (74-106); Potassium 3.8 mmol/L (3.5-5.1); Sodium 133 mmol/L (136-145); Total Protein 7.8 g/dL (6.4-8.2)
== END 2023-10-30 16:55 | disposition home or self-care (01) ==
PROVIDERS: Physician Assistant; Emergency Provider Emergency Medicine; PCP Internal Medicine
DX: J06.9 Acute upper respiratory infection, unspecified (principal); R60.9 Edema, unspecified; G40.909 Epilepsy, unspecified, not intractable, without status epilepticus; E11.9 Type 2 diabetes mellitus without complications; E78.00 Pure hypercholesterolemia, unspecified; K21.9 Gastro-esophageal reflux disease without esophagitis; K58.9 Irritable bowel syndrome, unspecified; G43.909 Migraine, unspecified, not intractable, without status migrainosus; J42 Unspecified chronic bronchitis; F41.9 Anxiety disorder, unspecified; F32.A Depression, unspecified; G62.9 Polyneuropathy, unspecified; Z98.1 Arthrodesis status; Z79.899 Other long term (current) drug therapy; Z98.49 Cataract extraction status, unspecified eye; Z96.1 Presence of intraocular lens; Z98.890 Other specified postprocedural states; Z90.49 Acquired absence of other specified parts of digestive tract; F17.290 Nicotine dependence, other tobacco product, uncomplicated
CPT/HCPCS: 36415; 71045; 80053; 83605; 83880; 84484; 85025; 85610; 87635; 87804; 87811; 93005; 94640; 99285

== ENCOUNTER 2023-11-24 09:14 | Outpatient (OUT) | payer MEDICARE, MEDICAID, SELFPAY ==
--- NOTE | 2023-11-24 | XR_ITS ---
The [address] [address] Patient Name: DUTCH MONIQUE MRN: [id number] date: 1955 Sex: M Assigned Patient Location: [facility] Current Patient Location: [facility] Accession/Order Number: [id number] Exam Date: 11/24/2023 09:50 Report Date: 11/24/2023 11:30 At the request of: ANNI WILSON Procedure: XR elbow LT min 3V EXAM: XR elbow LT min 3V. HISTORY: LEFT ELBOW PAIN. COMPARISON: Left elbow study dated 09/08/2023. TECHNIQUE: AP and lateral views of the left elbow were obtained. FINDINGS: Stabilizing plates and screws at the distal humeral level, similar to the prior study and unremarkable. No convincing evidence of acute fracture or dislocation. Calcification at the level of the distal humerus posteriorly likely related to healing. Faint calcification anteriorly and medially at the humeral level likely related to healing. Mild soft tissue swelling. Anterior fat pad is not well seen, no obvious posterior fat pad. XR/XR elbow LT min 3V IMPRESSION: Left elbow study demonstrates stable postoperative changes at the level of the distal humerus. Findings likely related to healing at the distal humeral level similar to the prior exam. Mild soft tissue swelling. Follow-up as needed. Electronically authenticated by: SAMUEL RNADOLPH Date: 11/24/2023 11:30
== END 2023-11-24 09:15 | disposition home or self-care (01) ==
LOC: RAD 09:14
PROVIDERS: PCP Internal Medicine; Visit Provider Orthopaedic Surgery
DX: S42.412D Displaced simple supracondylar fracture without intercondylar fracture of left humerus, subsequent encounter for fracture with routine healing (principal)
CPT/HCPCS: 73080

== ENCOUNTER 2024-02-20 12:35 | Outpatient (OUT) | payer MEDICARE, MEDICAID, SELFPAY ==
--- OUTSIDE RECORDS SUMMARY | 2024-02-20 12:46 | XMS_ITS | CCD ---
Author Organization [facility] Care Team Providers Care Digital Assistant Name Role Phone ELLEN MORRIS Unavailable Unavailable BEA EPSTEIN Unavailable Unavailable ELIOT VAZQUEZ Unavailable MITUL Conti Unavailable Unavailable CO Unavailable Unavailable DUTCH DE SOUZA Unavailable Unavailable HEHEYDI STEINBERG Unavailable Unavailable VICKY, DR SALEEM Primary Care Unavailable VICKY, DR SALEEM Admitting Unavailable DR MITUL RICHMOND Attending Unavailable VICKY, DR SALEEM Consulting Unavailable ALEXX MARIE Consulting Unavailable DR MITUL RICHMOND Primary Care Unavailable DR MITUL RICHMOND Admitting Unavailable VICKY, DR SALEEM Attending Unavailable Mitul Richmond MD Unavailable America Velasquez Unavailable RADHA VIDAL Attending Unavailable AMERICA CHRISTIANSON Attending Unavailable ANAID BELTRÁN Attending Unavailable ANAID BELTRÁN Referring Unavailable Allergies Allergy Classification Reported Allergen(s) Allergy Type Date of Onset Reaction(s) Facility (1 source) Bee/Wasp/Ant venom; Translations: [BEE STINGS] Propensity to adverse reactions (disorder) 7 [facility] Repository (2 sources) carBAMazepine Drug Allergy 7 [facility] Repository (2 sources) cefaclor Drug Allergy 7 [facility] Rep[facility] (2 sources) DULoxetine Drug Allergy 7 [facility] Repository (1 source) OXcarbazepine Drug Allergy 7 [facility] Repository (1 source) bee venom Drug allergy (disorder) 7 [facility] Repository (1 source) Bee pollen Allergy to substance 3 Unknown [facility] Work Phone: (1 source) Carbamazepine Allergy to substance 3 Unknown [facility] Healthcare Medications Current Medications Medication Drug Class(es) Dates Sig (Normalized) Sig (Original) acetaminophen 325 mg / HYDROcodone bitartrate 10 mg oral tablet (1 source) Opioid Agonist Start: 08-08-2023 take 2 tablets by mouth every six hours for pain HYDROcodone-aceta minophen ([place]) 10-325 MG tablet Indications: Degenerative disc disease at L5-S1 level Take 2 tablets by mouth every 6 (six) hours if needed for severe pain. 120 tablet 0 08/08/2023 Active [id number] 200 actuat albuterol 0.09 mg/actuat metered dose inhaler (1 source) beta2-Adrenergic Agonist Start: 08-07-2023 take 2 puff(s) by inhalation every four hours for wheezing albuterol HFA 90 mcg/act inhaler Indications: Chronic obstructive pulmonary disease, unspecified COPD type (CMS/HCC) Inhale 2 puffs every 4 (four) hours if needed for wheezing or shortness of breath. 54 g 3 08/07/2023 Active ARIPiprazole 2 mg oral tablet (1 source) Atypical Antipsychotic Start: 07-24-2023 take 1 tablet by mouth in the morning ARIPiprazole (Abilify) 2 MG tablet Indications: Major depressive disorder with single episode, remission status unspecified (CMS/HCC) Take 1 tablet (2 mg) by mouth in the morning. 100 tablet 3 07/24/2023 Active Blood Glucose Monitoring Suppl (FreeStyle Lite) w/Device kit (1 source) Start: 05-16-2022 Blood Glucose Monitoring Suppl (FreeStyle Lite) w/Device kit 1 Units in the morning and at noon. 0 05/16/2022 Active [id number] 0.15 ml EPINEPHrine 1 mg/ml auto-injector (1 source) alpha-Adrenergic Agonist, beta-Adrenergic Agonist, Catecholamine Start: 07-24-2023 EPINEPHrine (AUVI-Q) 0.15 mg/0.15 mL IJ solution auto-injector injection Indications: Bee sting allergy Inject 0.15 mL (0.15 mg) into the shoulder, thigh, or buttocks if needed for anaphylaxis. 3 each 1 07/24/2023 Active fluticasone propionate 0.05 mg/actuat metered dose nasal spray (1 source) Corticosteroid Start: 07-24-2023 take 2 spray(s) nasal route in the morning fluticasone (Flonase) 50 MCG/ACT nasal spray Indications: Allergic rhinitis, unspecified seasonality, unspecified trigger Administer 2 sprays into each nostril in the morning. 48 g 3 07/24/2023 Active furosemide 20 mg oral tablet (1 source) Loop Diuretic Start: 10-30-2023 take 1 tablet by mouth in the morning furosemide (Lasix) 20 MG tablet Take 20 mg by mouth in the morning. 0 10/30/2023 Active isopropyl alcohol 0.7 ml/ml medicated pad (1 source) Alcohol Swabs (Alcohol Prep) pads Apply 1 Pad topically every 12 (twelve) hours. 0 Active lisinopril 20 mg oral tablet (1 source) Angiotensin Converting Enzyme Inhibitor Start: 11-11-2023 take 1 tablet by mouth before mealtime lisinopril 20 MG tablet Indications: Primary hypertension (CMS/HCC) Take 1 tablet (20 mg) by mouth at noon. Take before meals 100 tablet 3 11/11/2023 Active nicotine 4 mg chewing gum (2 sources) Cholinergic Nicotinic Agonist Start: 03-25-2023 nicotine polacrilex (Nicorette) 4 MG gum Indications: Smoking addiction Chew 1 each (4 mg) every 8 (eight) hours if needed for smoking cessation. 90 each 3 03/25/2023 Active Start: 03-25-2023 nicotine polac rilex (Commit) 4 MG lozenge Indications: Smoking addiction Dissolve 1 lozenge (4 mg) in the mouth every 8 (eight) hours if needed for smoking cessation. 90 lozenge 2 03/25/2023 Active pantoprazole 40 mg delayed release oral tablet (1 source) Proton Pump Inhibitor Start: 07-24-2023 take 1 tablet by mouth in the morning pantoprazole (ProtoNix) 40 MG EC tablet Indications: Gastro-esophageal reflux disease without esophagitis Take 1 tablet (40 mg) by mouth in the morning. 100 tablet 3 07/24/2023 Active PHENobarbital 32 mg oral tablet (1 source) Start: 10-28-2023 take 1 tablet by mouth in the morning, then take 1 tablet by mouth in the evening, then take 1 tablet by mouth at bedtime PHENobarbital (Luminal) 32.4 MG tablet Indications: Localization-related epilepsy (CMS/HCC) Take 1 tablet (32.4 mg) by mouth in the morning and 1 tablet (32.4 mg) in the evening and 1 tablet (32.4 mg) before bedtime. 90 tablet 0 10/28/2023 Active phenytoin sodium 100 mg extended release oral capsule (1 source) Anti-epileptic Agent Start: 07-24-2023 take 1 capsule by mouth in the morning, then take 1 capsule by mouth in the evening, then take 1 capsule by mouth at bedtime phenytoin ER (Dilantin) 100 MG capsule Indications: Localization-related epilepsy (CMS/HCC) Take 1 capsule (100 mg) by mouth in the morning and 1 capsule (100 mg) in the evening and 1 capsule (100 mg) before bedtime. 300 capsule 3 07/24/2023 Active pregabalin 150 mg oral capsule (1 source) Start: 03-06-2023 take 1 capsule by mouth in the morning, then take 1 capsule by mouth in the evening, then take 1 capsule by mouth at bedtime pregabalin (Lyrica) 150 MG capsule Take 150 mg by mouth in the morning and 150 mg in the evening and 150 mg before bedtime. 0 03/06/2023 Active primidone 50 mg oral tablet (1 source) Anti-epileptic Agent Start: 07-24-2023 take 1 tablet by mouth in the morning primidone (Mysoline) 50 MG tablet Indications: Essential tremor Take 1 tablet (50 mg) by mouth in the morning and 1 tablet (50 mg) before bedtime. 400 tablet 3 07/24/2023 Active sildenafil 25 mg oral tablet (1 source) Phosphodiesterase 5 Inhibitor Start: 11-11-2023 End: 12-11-2023 take 1 tablet by mouth once daily as needed sildenafil (Viagra) 25 MG tablet Indications: Erectile dysfunction, unspecified erectile dysfunction type Take 1 tablet (25 mg) by mouth Daily as needed for erectile dysfunction 20 tablet 0 11/11/2023 12/11/2023 Active simvastatin 40 mg oral tablet (1 source) HMG-CoA Reductase Inhibitor Start: 11-11-2023 take 1 tablet by mouth in the morning simvastatin (Zocor) 40 MG tablet Indications: Mixed hyperlipidemia (CMS/HCC) , Hypertension, unspecified type (CMS/HCC) Take 1 tablet (40 mg) by mouth in the morning. 100 tablet 3 11/11/2023 Active tamsulosin hydrochloride 0.4 mg oral capsule (1 source) alpha-Adrenergic Jeanine Start: 08-28-2023 take 1 tablet by mouth once daily tamsulosin (Flomax) 0.4 MG 24 hr capsule Indications: Benign localized prostatic hyperplasia with lower urinary tract symptoms (LUTS) take 1 tablet by mouth once daily 100 capsule 3 08/28/2023 Active tiZANidine 4 mg oral tablet (1 source) Central alpha-2 Adrenergic Agonist Start: 11-17-2023 take 2 tablets by mouth every eight hours for muscle spasms tiZANidine (Zanaflex) 4 MG tablet Indications: Right lumbar radiculopathy take 2 tablets by mouth every 8 hours if needed for muscle spasm 60 tablet 0 11/17/2023 Active 24 hr venlafaxine 75 mg extended release oral capsule (2 sources) Serotonin and Norepinephrine Reuptake Inhibitor Start: 10-10-2023 take 1 capsule by mouth once daily at mealtime venlafaxine XR (Effexor XR) 75 MG 24 hr capsule Indications: Depressive disorder (CMS/HCC) take 1 capsule by mouth once daily with food 100 capsule 2 10/10/2023 Active Start: 07-24-2023 take 1 capsule by mo uth every twenty-four hours in the morning venlafaxine XR (Effexor XR) 150 MG 24 hr capsule Indications: Depressive disorder (CMS/HCC) Take 1 capsule (150 mg) by mouth in the morning. 100 capsule 3 07/24/2023 Active Problems Active Problems Problem Classification Problem Date Documented Date Episodic/Chronic Blindness and vision defects (1 source) Visual impairment; Translations: [Unspecified visual loss] Onset: 03-24-2023 03-24-2023 Chronic Chronic obstructive pulmonary disease and bronchiectasis (3 sources) Chronic obstructive pulmonary disease, unspecified; Translations: [Chronic obstructive lung disease] Onset: 06-08-2017 03-24-2023 Chronic Diabetes mellitus with complications (2 sources) Peripheral neuropathy due to type 2 diabetes mellitus; Translations: [Type 2 diabetes mellitus with diabetic polyneuropathy] Onset: 03-24-2023 Resolved: 05-02-2023 10-31-2023 Chronic Diabetes mellitus without complication (1 source) Type 2 diabetes mellitus without complications; Translations: [TYPE 2 DIABETES MELLITUS WITHOUT COMPLICATIONS] Onset: 06-08-2017 Chronic Disorders of lipid metabolism (1 source) Mixed hyperlipidemia; Translations: [Mixed hyperlipidemia] Onset: 03-24-2023 03-24-2023 Chronic Epilepsy; convulsions (3 sources) Epilepsy, unspecified, not intractable, without status epilepticus; Translations: [Localization-related epilepsy] Onset: 06-08-2017 03-24-2023 Chronic Esophageal disorders (1 source) Gastroesophageal reflux disease without esophagitis; Translations: [Gastro-esophageal reflux disease without esophagitis] Onset: 03-24-2023 03-24-2023 Chronic Essential hypertension (1 source) Hypertensive disorder; Translations: [Essential (primary) hypertension] Onset: 03-24-2023 03-24-2023 Chronic External Injury - Fall (1 source) [...] UNSP NON-INSTITUT (PRIVATE) RESIDENCE PLACE] Onset: 06-08-2017 Headache; including migraine (1 source) Migraine; Translations: [Migraine, unspecified, not intractable, without status migrainosus] Onset: 03-24-2023 03-24-2023 Chronic Hyperplasia of prostate (1 source) Benign prostatic hypertrophy with outflow obstruction; Translations: [Benign prostatic hyperplasia with lower urinary tract symptoms] Onset: 03-24-2023 03-24-2023 Chronic Mood disorders (1 source) Depressive disorder; Translations: [Depressive disorder] Onset: 03-24-2023 03-24-2023 Chronic Osteoarthritis (1 source) Degenerative joint disease involving multiple joints; Translations: [Polyosteoarthritis, unspecified] Onset: 03-24-2023 03-24-2023 Chronic Other ear and sense organ disorders (1 source) Chronic otitis externa of left external auditory canal; Translations: [Unspecified chronic otitis externa, left ear] Onset: 03-24-2023 03-24-2023 Chronic Other hereditary and degenerative nervous system conditions (1 source) Essential tremor; Translations: [Essential tremor] Onset: 03-24-2023 03-24-2023 Chronic Other nervous system disorders (1 source) Other chronic pain; Translations: [OTHER CHRONIC PAIN] Onset: 06-08-2017 Chronic Other nervous system disorders (1 source) Polyneuropathy; Translations: [Polyneuropathy, unspecified] Onset: 03-24-2023 03-24-2023 Chronic Other non-traumatic joint disorders (4 sources) Pain in right ankle and joints of right foot; Translations: [PAIN IN RIGHT ANKLE] Onset: 02-06-2023 Episodic Spondylosis; intervertebral disc disorders; other back problems (2 sources) Other spondylosis, cervical region; Translations: [Degeneration of lumbosacral intervertebral disc] Onset: 06-08-2017 03-24-2023 Chronic Substance-related disorders (2 sources) Nicotine dependence, cigarettes, uncomplicated; Translations: [Tobacco dependence caused by cigarettes] Onset: 06-08-2017 03-24-2023 Chronic Unclassified (2 sources) Unknown / UNK(Unknown) Onset: 06-08-2017 Past or Other Problems Problem Classification Problem Date Documented Date Episodic/Chronic Abdominal hernia (1 source) Hiatal hernia; Translations: [Diaphragmatic hernia without obstruction or gangrene] Onset: 03-24-2023 03-24-2023 Episodic Allergic reactions (2 sources) Allergy status to other anti-infective agents status; Translations: [Hand eczema] Onset: 06-08-2017 03-24-2023 Episodic Diabetes mellitus without complication (1 source) Impaired glucose tolerance; Translations: [Impaired glucose tolerance (oral)] Onset: 03-24-2023 03-24-2023 Episodic Fluid and electrolyte disorders (1 source) Hyponatremia; Translations: [Hypo-osmolality and hyponatremia] Onset: 03-24-2023 03-24-2023 Episodic Hemorrhoids (1 source) External hemorrhoids; Translations: [Residual hemorrhoidal skin tags] Onset: 03-24-2023 03-24-2023 Episodic Other and unspecified benign neoplasm (1 source) Adenomatous polyp of colon ; Translations: [Benign neoplasm of colon, unspecified] Onset: 03-24-2023 03-24-2023 Episodic Other connective tissue disease (1 source) Recurrent falls ; Translations: [Repeated falls] Onset: 03-24-2023 03-24-2023 Episodic Other ear and sense organ disorders (1 source) Otitis externa; Translations: [Unspecified otitis externa, unspecified ear] Onset: 03-24-2023 Resolved: 10-31-2023 10-31-2023 Chronic Other fractures (1 source) Fracture of other parts of neck, initial encounter; Translations: [FRACTURE OF OTHER PARTS OF NECK, INITIAL ENCOUNTER] Onset: 06-08-2017 Episodic Other injuries and conditions due to external causes (3 sources) Unspecified injury of neck, initial encounter; Translations: [Traumatic subcutaneous emphysema, initial encounter] Onset: 06-08-2017 Episodic Other nervous system disorders (1 source) Abnormal gait; Translations: [Unspecified abnormalities of gait and mobility] Onset: 03-24-2023 03-24-2023 Episodic Other nervous system disorders (1 source) Impairment of balance; Translations: [Other abnormalities of gait and mobility] Onset: 03-24-2023 03-24-2023 Episodic Other upper respiratory infections (1 source) Recurrent acute sinusitis; Translations: [Acute recurrent sinusitis, unspecified] Onset: 03-24-2023 03-24-2023 Episodic Spondylosis; intervertebral disc disorders; other back problems (3 sources) Dorsalgia, unspecified; Translations: [Lumbosacral neuritis] Onset: 06-08-2017 03-24-2023 Episodic Results Test Name Value Interpretation Reference [...] by: ALEXX MARIE Date: 2023-02-06 13:52 Normal [facility] Discharge Summaryon 06-10-20 17 Discharge Summary MR#: [id number] [facility] Dutch Monique Admitted: 06/08/2017 Discharged: 06/09/2017 Date of : 1955 Physician: Heydi Walls M.D. DISCHARGE SUMMARYDISCHARGE ATTENDING: Dr. Walls.PRINCIPAL DIAGNOSIS: Neck injury following a fall on railing.SECONDARY DIAGNOSES: Chronic obstructive pulmonary disease, epilepsy, andtype 2 diabetes.PROCEDURES PERFORMED AND TREATMENT RENDERED: CTC, CT neck, x-ray ofabdomen and pelvis were performed in the emergency department at outside[facility]. CTC revealed cervical spondylosis with multi-facet DJD,otherwise no acute injuries. CT neck shows some right subcu emphysema inthe prevertebral tissue from the skull base to the superior mediastinum.X-ray of the pelvis and hip were negative. Esophagram was done at [facility] torule out esophageal rupture. Esophagram came back negative. The patientwas started on normal diet and home medications were resumed. Thepatient's condition at discharge was stable. The patient was seen by PTand OT, which recommended home PT, otherwise [facility] The patient was discharged [...] personal documentation from me. Date Dict: 06/09/2017/04:39 P/Rell Landrum Trans: 06/10/2017 02:22 A/[id number] cc: Mitul Richmond M.D. [address] [place] [id number] Normal [facility] CBC W/DIFFon 06-09-2017 Basophils Auto #/vol (Bld) 1.0 % Normal 0.0-2.0 [facility] Comment on above: Order Comment: No: D o not add to previous draw Performed By: #### 5 0103 ####[facility] [place] [address], [facility] Eosinophils/100 leukocytes 3.7 % Normal 0.0-5.0 [facility] Comment on above: Order Comment: No: D o not add to previous draw Performed By: #### 5 0103 ####[facility] [place] [address], [facility] Erythrocyte distribution width Auto Ratio (RBC) 16.0 % Normal 11.5-16.9 [facility] Comment on above: Order Comment: No: D o not add to previous draw Performed By: #### 5 3 ####[facility] [facility] Erythrocytes (RBC) 4.80 mill/mm3 Normal 4.30-5.90 [facility] Comment on above: Order Comment: No: D o not add to previous draw Performed By: #### 5 3 ####[facility] [facility] [place] [address], [facility] Hematocrit (HCT) 45.6 % Normal 39.0-55.0 [facility] Comment on above: Order Comment: No: D o not add to previous draw Performed By: #### 5 3 ####[facility] [place] [address], [facility] Hemoglobin mass conc (Bld) 15.3 g/dL Normal 13.9-16.3 [facility] Comment on above: Order Comment: No: D o not add to previous draw Performed By: #### 5 3 ####[facility] [place] [address], [facility] Lymphocytes/100 leukocytes 28.3 % Normal 20.0-40.0 [facility] Comment on above: Order Comment: No: D o not add to previous draw Performed By: #### 5 0103 ####[facility] [place] [address], [facility] MCH 31.9 pg Normal 24.0-32.0 [facility] Comment on above: Order Comment: No: D o not add to previous draw Performed By: #### 5 0103 ####[facility] [place] [address], [facility] MCHC mass conc (RBC) 33.6 g/dL Normal 32.0-36.0 [facility] Comment on above: Order Comment: No: D o not add to previous draw Performed By: #### 5 0103 ####[facility] [place] [address], [facility] MCV 95.1 fL Normal 80.0-100.0 [facility] Comment on above: Order Comment: No: D o not add to previous draw Performed By: #### 5 0103 ####[facility] [place] [address], [facility] METHOD Normal [facility] Comment on above: Order Comment: No: D o not add to previous draw Result Comment: Auto mated differential performedNormal RBC Morphology Performed By: #### 5 0103 ####[facility] [facility] [place] [address], [facility] MONOS 8.4 % High 2-8 [facility] Comment on above: Order Comment: No: D o not add to previous draw Performed By: #### 5 0103 ####[facility] [facility] [place] [address], [facility] Neutrophils/100 leukocytes 58.6 % Normal 50-70 [facility] Comment on above: Order Comment: No: D o not add to previous draw Performed By: #### 5 0103 ####[facility] [place] [address], [facility] PLAT CNT 144 Thou/mm3 Normal 100-400 [facility] Comment on above: Order Comment: No: D o not add to previous draw Performed By: #### 5 0103 ####[facility] [facility] [place] [address], [facility] WBC (Leukocytes) 5.4 Thou/mm3 Normal 4.0-10.0 [facility] Comment on above: Order Comment: No: D o not add to previous draw Performed By: #### 5 0103 ####[facility] [facility].[address] COMP METABOLIC PANELon 06-09 Alanine aminotransferase (ALT) 20 U/L Normal 7-52 [facility] Comment on above: Order Comment: No: D o not add to previous draw Performed By: #### 4 1000, 79818, 36896 ####[facility] [facility].[address] Albumin 3.6 g/dL Normal 3.5-5.7 [facility] Comment on above: Order Comment: No: D o not add to previous draw Performed By: #### 4 1000, 37787, 08269 ####[facility] [facility].[address] ALKALINE PHOSPH 79 IU/L Normal 34-104 [facility] Comment on above: Order Comment: No: D o not add to previous draw Performed By: #### 4 1000, 75748, 48832 ####[facility] [facility].[address] Aspartate aminotransferase (AST) 21 U/L Normal 13-39 [facility] Comment on above: Order Comment: No: D o not add to previous draw Performed By: #### 4 1000, 12412, 27782 ####[facility] [place] [address], [facility] Bilirubin (total) 0.6 mg/dL Normal 0.3-1.0 [facility] Comment on above: Order Comment: No: D o not add to previous draw Performed By: #### 4 1000, 70373, 60291 ####[facility] [place] [address], [place] Calcium 8.5 mg/dL Low 8.6-10.3 [facility] Comment on above: Order Comment: No: D o not add to previous draw Performed By: #### 4 1000, 23750, 28189 ####[facility] [place] [address], [place] Chloride 105 mmol/L Normal 98-107 [facility] Comment on above: Order Comment: No: D o not add to previous draw Performed By: #### 4 1000, 84737, 06047 ####[facility] [place] [address], [place] CO2 23 mmol/L Normal 21-31 [facility] Comment on above: Order Comment: No: D o not add to previous draw Performed By: #### 4 1000, 04683, 53884 ####[facility] [place] [address], [place] Creatinine 0.69 mg/dL Low 0.70-1.30 [facility] Comment on above: Order Comment: No: D o not add to previous draw Performed By: #### 4 1000, 47794, 49684 ####[facility] [place] [address], [facility] eGFR (black) mL/min/{1.73_m2} Normal >60 [facility] Comment on above: Order Comment: No: D o not add to previous draw Performed By: #### 4 1000, 22093, 29535 ####[facility] [place] [address], [place] eGFR (non-black) mL/min/{1.73_m2} Normal >60 [facility] Comment on above: Order Comment: No: D o not add to previous draw Performed By: #### 4 1000, 36886, 39241 ####[facility] [place] [address], [facility] Glucose mass conc 72 mg/dL Normal 70-100 [facility] Comment on above: Order Comment: No: D o not add to previous draw Performed By: #### 4 1000, 54487, 14892 ####[facility] [place] [address], [facility] Potassium molar conc 4.0 mmol/L Normal 3.5-5.1 [facility] Comment on above: Order Comment: No: D o not add to previous draw Performed By: #### 4 1000, 96781, 10452 ####[facility] [id number], [facility] Protein 5.8 g/dL Low 6.0-8.3 [facility] Comment on above: Order Comment: No: D o not add to previous draw Performed By: #### 4 1000, 19206, 26447 ####[facility] [place] [address], [facility] Sodium 135 mmol/L Low 136-145 [facility] Comment on above: Order Comment: No: D o not add to previous draw Performed By: #### 4 1000, 34620, 92061 ####[facility] [facility] [place] [address], [facility] Urea nitrogen 7 mg/dL Normal 7-25 [facility] Comment on above: Order Comment: No: D o not add to previous draw Performed By: #### 4 1000, [id number], [id number] ####[facility] [id number], [facility] LACTATE BLOODon 06-09-2017 Lactate 0.5 mmol/L Normal .5-2.2 [facility] Comment on above: Order Comment: No: D o not add to previous draw Performed By: #### 1 0054 ####[facility] [place] [address], [facility] MAGNESIUM BLOODon 06-09-2017 Magnesium 2.0 mg/dL Normal 1.9-2.7 [facility] Comment on above: Order Comment: No: D o not add to previous draw Performed By: #### 4 1000, 05378, 39991 ####[facility] [place] [address], [facility] PHOSPHORUS BLOODon 7 Phosphate 3.0 mg/dL Normal 2.5-5.0 [facility] Comment on above: Order Comment: No: D o not add to previous draw Performed By: #### 4 1000, 30146, 90285 ####[facility] [place] [address], [facility] BASIC METABOLIC PANELon 05-21 Calcium 8.7 mg/dL Normal 8.6-10.3 [facility] Comment on above: Order Comment: Yes: Add to Previous draw if able Performed By: #### 0 0071 ####[facility] [place] [address], [facility] Chloride 102 mmol/L Normal 98-107 [facility] Comment on above: Order Comment: Yes: Add to Previous draw if able Performed By: #### 0 0071 ####[facility] [place] [address], [facility] CO2 25 mmol/L Normal 21-31 [facility] Comment on above: Order Comment: Yes: Add to Previous draw if able Performed By: #### 0 0071 ####[facility] [place] [address], [facility] Creatinine 0.73 mg/dL Normal 0.70-1.30 [facility] Comment on above: Order Comment: Yes: Add to Previous draw if able Performed By: #### 0 0071 ####[facility] [place] [address], [facility] eGFR (black) mL/min/{1.73_m2} Normal >60 [facility] Comment on above: Order Comment: Yes: Add to Previous draw if able Performed By: #### 0 0071 ####[facility] eGFR (non-black) mL/min/{1.73_m2} Normal >60 [facility] Comment on above: Order Comment: Yes: Add to Previous draw if able Performed By: #### 0 0071 ####[facility].[address] Glucose mass conc 97 mg/dL Normal 70-100 [facility] Comment on above: Order Comment: Yes: Add to Previous draw if able Performed By: #### 0 0071 ####[place] [address] [facility].[address] Potassium molar conc 3.9 mmol/L Normal 3.5-5.1 [facility] Comment on above: Order Comment: Yes: Add to Previous draw if able Performed By: #### 0 0071 ####[place] [address] [facility].[address] Sodium 133 mmol/L Low 136-145 [facility] Comment on above: Order Comment: Yes: Add to Previous draw if able Performed By: #### 0 0071 ####[facility].[address] Urea nitrogen 6 mg/dL Low 7-25 [facility] Comment on above: Order Comment: Yes: Add to Previous draw if able Performed By: #### 0 0071 ####[place] [address] [facility].[address] CBC COMPLETE BLOOD COUNTon 0 - Erythrocyte distribution width Auto Ratio (RBC) 16.3 % Normal 11.5-16.9 [facility] Comment on above: Order Comment: Yes: Add to Previous draw if able Performed By: #### 5 0608 ####[facility] Erythrocytes (RBC) 4.73 mill/mm3 Normal 4.30-5.90 [facility] Comment on above: Order Comment: Yes: Add to Previous draw if able Performed By: #### 5 0608 ####[facility] Hematocrit (HCT) 45.0 % Normal 39.0-55.0 [facility] Comment on above: Order Comment: Yes: Add to Previous draw if able Performed By: #### 5 0608 ####[address] Hemoglobin mass conc (Bld) 15.4 g/dL Normal 13.9-16.3 [facility] Comment on above: Order Comment: Yes: Add to Previous draw if able Performed By: #### 5 0608 ####[facility] [facility].[address] MCH 32.5 pg High 24.0-32.0 [facility] Comment on above: Order Comment: Yes: Add to Previous draw if able Performed By: #### 5 0608 ####[place] [address] [facility].[address] MCHC mass conc (RBC) 34.2 g/dL Normal 32.0-36.0 [facility] Comment on above: Order Comment: Yes: Add to Previous draw if able Performed By: #### 5 0608 ####[address] MCV 95.1 fL Normal 80.0-100.0 [facility] Comment on above: Order Comment: Yes: Add to Previous draw if able Performed By: #### 5 0608 ####[address] [place] [address], [facility] PLAT CNT 157 Thou/mm3 Normal 100-400 [facility] Comment on above: Order Comment: Yes: Add to Previous draw if able Performed By: #### 5 0608 ####[address] [address], [facility] WBC (Leukocytes) 9.0 Thou/mm3 Normal 4.0-10.0 [facility] Comment on above: Order Comment: Yes: Add to Previous draw if able Performed By: #### 5 0608 ####[id number] [place] [address] ESOPHAGRAMon 06-08-2017 [facility]OP[facility]AGRAM [facility] [place], [place] [address] P atient Name: DUTCH MONIQUE : 1955Sex: MAge: Race: WhiteMRN: [id number]. Location: [id number] Status: IVisit #: [id number] Date: 06/08/2017 3:35:00 PMCompleted Date: 06/08/2017 05:01 PMRequesting Provider: GUERITA HICKS Attending Provider: BEA EPSTEIN Report Copy To: Signs & Symptoms: DysphagiaHistory: Patient history not availableComments: R/O PerforationExam: ESOPHAGRAMAccession #: [id number] ======ESOPHAGRAM 06/08/2017 5:01 PM EDT SIGNS AND [...] Electronically signed by:Dutch De Souza. Transcribed by: [email or web address], User Resident: ARCELIA COLINElectronically Signed by: DUTCH DE SOUZA @ 06/09/2017 07:05 AMI personally read this/these film(s) with this resident Normal [facility] Comment on above: Order Comment: R/O P erforation History and Physicalon 06-08 History and Physical [id number] Dutch Monique Admitted: 06/08/2017 Date of : 1955 Attending Physician: Bea Epstein MD Room #: [id number] Discharge Date: HISTORY AND PHYSICALCHIEF COMPLAINT: Neck [...] speaking/hoarseness.He eventually went and [facility], where a CT of the neck showed some prevertebral subcutaneousemphysema as well as a fracture of the right portion of the hyoid bone. Hewas then [facility] for furtherevaluation in stable condition.PAST MEDICAL HISTORY: Type 2 diabetes mellitus, epilepsy, COPD/chronicbronchitis, and chronic back pain.PAST SURGICAL HISTORY: Back surgery, right knee ACL surgery,cholecystectomy, nose surgery, and teeth removal.FAMILY HISTORY: Noncontributory.SOCIAL HISTORY: One-half pack per day smoker for at least 14 years. Hehad quit before this time for 23 years, but smoked before then. No alcoholor drug use.MEDICATIONS: [place], tizanidine, phenytoin, primidone, Effexor XR, Zocor,lamotrigine, zolpidem, [...] respiratory rate 23, blood pressure 138/67, O2 [id number]% on room air.GENERAL: No acute distress. Hoarseness [...] his neck and now presents with increased drbpyavj-ov-yptloq painand hoarseness with imaging showing prevertebral subcutaneous [...] personal documentation from me. Date Dict: 06/08/2017/12:48 P/WYATT Cuellarate Trans: 06/08/2017 08:50 P/mmoDN_JN:[id number] Normal [facility] TOX PANEL URINEon 06-08-2017 50 THC Negative Normal NEGATIVE [facility] Comment on above: Order Comment: Yes: Add to Previous draw if able Performed By: #### 3 1079 ####[facility] [facility] [address], [facility] BARBITURATES Positive Abnormal NEGATIVE [facility] Comment on above: Order Comment: Yes: Add to Previous draw if able Performed By: #### 3 1079 ####[facility] [facility] [address], [place] MONO AMPHET Negative Normal NEGATIVE [facility] Comment on above: Order Comment: Yes: Add to Previous draw if able Performed By: #### 3 1079 ####[facility] [place] [address], [place] PROPOXYPHENE Negative Normal NEGATIVE [facility] Comment on above: Order Comment: Yes: Add to Previous draw if able Performed By: #### 3 1079 ####[facility] [place] [address], [place] TRICYCLICS Negative Normal NEGATIVE [facility] Comment on above: Order Comment: Yes: Add to Previous draw if able Performed By: #### 3 1079 ####[facility] [place] [address], [place] Urine, benzodiazepines presence Negative Normal NEGATIVE [facility] Comment on above: Order Comment: Yes: Add to Previous draw if able Performed By: #### 3 1079 ####[facility] [place] [address], [place] Urine, cocaine presence Negative Normal NEGATIVE [facility] Comment on above: Order Comment: Yes: Add to Previous draw if able Performed By: #### 3 1079 ####[facility] [place] [address], [place] Urine, methadone presence Negative Normal NEGATIVE [facility] Comment on above: Order Comment: Yes: Add to Previous draw if able Performed By: #### 3 1079 ####[facility] [facility] [place] [address], [place] Urine, opiates presence Positive Abnormal NEGATIVE [facility] Comment on above: Order Comment: Yes: Add to Previous draw if able Performed By: #### 3 1079 ####[facility] [facility] [address], [place] Urine, phencyclidine presence Negative Normal NEGATIVE [facility] Comment on above: Order Comment: Yes: Add to Previous draw if able Performed By: #### 3 1079 ####[facility] [facility] [address], [facility] Encounters Encounter Date Encounter Type Care Provider Facility Start: 02-05-2024 End: 02-05-2024 ambulatory ANAID BELTRÁN Not Available Start: 11-24-2023 End: 11-24-2023 ambulatory AMERICA CHRISTIANSON Not Available Start: 11-24-2023 Chart abstracting America Ovalle er PA Work Phone: [facility] Start: 11-11-2023 End: 11-11-2023 ambulatory RADHA VIDAL Not Available Start: 02-06-2023 End: 02-07-[address] MITUL RICHMOND Facility: Start: 08-14-2017 Ambulatory ELLEN MORRIS Amanda ty:[facility] Start: 06-08-2017 End: 06-09-2017 Ambulatory BEA EPSTEIN Facility:[facility] Procedures Date Procedure Procedure Detail Performing Clinician Start: 03-21-2021 Colonoscopy America GAMEZ Work Phone: Start: 06-08-2017 FLUOROSCOPY OF ESOPH LOU[place] USING OTHER CONTRAST DUTCH DE SOUZA Plan of Treatment Date Care Activity Detail Author Start: 03-21-2031 Screening for malign ant neoplasm of colon [facility] Start: 04-15-2025 Glaucoma screening Diabetes: R etinopathy Screening [facility] Start: 08-08-2024 Medicare Annual Well ness (AWV) Medicare Annual Wellness (AWV) [facility] Start: 11-24-2023 End: 11-24-2023 Patient encounter procedure 11/24/2023 2:00 PM EST Office Visit [facility] [address] [place] [address] America Christianson PA [address] [facility] [address] [place] [address] [facility] Start: 09-06-2023 Hemoglobin A1c measurement Diabetes: Hemoglobin A1C [facility] Start: 07-04-2022 Urine screening for protein Diabetes: Urine Protein Screening [facility] Start: 1955 Screening for malign ant neoplasm of colon [facility] Immunizations Immunization Date Immunization Notes Care Provider Fa cility 09-10-2023 Pneumococcal Conjuga te PCV 20 America GAMEZ Work Phone: [facility] 09-10-2023 RSV, recombinant, pr otein subunit RSVpreF, adjuvant reconstitu, 120mcg/0.5mL, PF (Arexvy) America GAMEZ Work Phone: [facility] 08-14-2023 Pfizer Ziegler Cap SARS -CoV-2 Vaccination America GAMEZ Work Phone: [facility] 08-08-2023 Influenza, High-dose Seasonal, Quadrivalent, Preservative Free America Hemmer PA Work Phone: [facility] 06-27-2021 influenza, injectabl e, quadrivalent, preservative free America Hemmer PA Work Phone: [facility] 09-29-2020 zoster vaccine recombinant K aren Hemmer PA Work Phone: [facility] 06-14-2020 influenza, high dose seasonal, preservative-free America Hemmer PA Work Phone: [facility] 06-14-2020 zoster vaccine recombinant K aren Hemmer PA Work Phone: [facility] 09-17-2019 Influenza, injectabl e, Madin Rula Canine Kidney, preservative free, quadrivalent America Hemmer PA Work Phone: [facility] 07-16-2018 seasonal influenza, intradermal, preservative free America Hemmer PA Work Phone: [facility] 09-04-2017 seasonal influenza, intradermal, preservative free America Hemmer PA Work Phone: [facility] 06-22-2014 seasonal influenza, intradermal, preservative free America Hemmer PA Work Phone: [facility] 03-22-2014 zoster vaccine, live America H rona PA Work Phone: [facility] 2012 pneumococcal polysaccharide vaccine, 23 valent America Hemmer PA Work Phone: [facility] Payers Date Payer Category Payer Medicare MEDICARE MEDICAR E PART B [id number] 2023-[place] [address] [place] [address] Medicare [id number] 2021 Medicaid MEDICAID [facility] [id number] 2021-Present [phone] [address] [place] [address] Medicaid [id number] 1959 Medicaid [id number] 1959 Medicare [id number] 1955 Unknown [id number] 1955 Unknown [id number] 1955 Unknown [id number] 1955 Unknown [id number] 1955 Unknown [id number] 1955 Unknown [id number] Unknown [id number] Social History Date Type Detail Facility Start: 08-08-2023 Tobacco smoking stat [facility] Smokes tobacco daily [facility] History of tobacco use Cigarette Smoker N [facility] Start: 08-08-2023 End: 11-11-2023 Cigarettes smoked current (pack per day) - Reported 1 [facility] Start: 08-08-2023 Tobacco use and exposure Smoke less tobacco non-user [facility] Start: 11-11-2023 Alcohol intake Lifetime non-d gita (finding) [facility] Start: 08-08-2023 End: 11-11-2023 Tobacco use panel [facility] Start: 1955 Sex Assigned At Not on file N [facility] Medical Equipment Procedure Code Equipment Code Equipment Origin al Text Equipment Identifier Dates 1 each by Other route in the morning and 1 each before bedtime. 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 [id number] Start: 07-24-2023 End: 07-23-2024 Summary Purpose Family History No Family History Records FoundNo Family History Records FoundNo Family History Records FoundNo Family History Records Found Advance Directives No Advanced Directives Records FoundNo Advanced Directives Records FoundNo Advanced Directives Records FoundNo Advanced Directives Records Found Additional Source Comments (unrecognized sect ion and content) No Status Records FoundNo Status Records FoundNo Status Records FoundNo Status Records Found INFORMATION SOURCE (unrecogn ized section and content) DATE CREATED AUTHOR 04/15/2018 [facility] DATE CREATED AUTHOR AUTHOR'S ORGANIZ ATION 04/15/2018 [facility] DATE CREATED AUTHOR AUTHOR'S ORGANIZ ATION 02/14/2023 [facility] DATE CREATED AUTHOR AUTHOR'S ORGANIZ ATION 02/07/2024 [facility] [employer] Care Teams (unrecognized sec tion and content) Digital Assistant Relationship Specialty Start Date End Date Mitul Richmond MD [address] [facility] [address] [place], [place] [id number] PCP - ACO Reach 03/13/23 America Christianson PA [address] [facility] [address] [place] [address] Physician [facility] 11/03/23 FOR RECORDS PERTAINING TO PATIENTS WHO ARE [...] BE BASED ON THE PRIMARY CLINICAL RECORDS. [facility]. provides no warranty or guarantee of the accuracy or completeness of information in this document.
--- NOTE | 2024-02-20 13:00 | CA_ITS ---
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 (right ALEX 1.21, left ALEX 1.20) Electronically Signed On 02-22-2024 11:05:58 EDT by DIRK NARAYAN
== END 2024-02-20 12:36 | disposition home or self-care (01) ==
LOC: CARD 12:37
PROVIDERS: PCP Internal Medicine
DX: I73.9 Peripheral vascular disease, unspecified (principal)
CPT/HCPCS: 93923

== ENCOUNTER 2024-02-29 23:50 | Emergency (ER) | payer MEDICARE, MEDICAID, SELFPAY ==
[2024-02-29 23:51] VITALS: BP 162/93; PULSE 72; TEMP 36.7; O2SAT 96; BMI 22.4
--- OUTSIDE RECORDS SUMMARY | 2024-03-01 00:27 | XMS_ITS | CCD ---
Author Organization [facility] Care Team Providers Care Pharmacy Clinical Specialist Name Role Phone ELLEN MORRIS Unavailable Unavailable BEA ESPTEIN Unavailable Unavailable ELIOT VAZQUEZ Unavailable MITUL Conti Unavailable Félix WI Unavailable Unavailable DUTCH DE SOUZA Unavailable Unavailable HEIDHEYDI Sampson Unavailable Unavailable VICKY, DR SALEEM Primary Care Unavailable VICKY, DR SALEEM Admitting Unavailable DR MITUL RICHMOND Attending Unavailable VICKY, DR SALEEM Consulting Unavailable ALEXX MARIE Consulting Unavailable VICKY, DR SALEEM Primary Care Unavailable DR MITUL RICHMOND Admitting Unavailable VICKY, DR SALEEM Attending Unavailable Mitul Richmond MD Unavailable [phone] America Velasquez Unavailable RADHA VIDAL Attending Unavailable AMERICA CHRISTIANSON Attending Unavailable ANAID BELTRÁN Attending Unavailable ANAID BELTRÁN Referring Unavailable AMERICA CHRISTIANSON Attending Unavailable Allergies Allergy Classification Reported Allergen(s) Allergy Type Date of Onset Reaction(s) Facility (1 source) Bee/Wasp/Ant venom; Translations: [BEE STINGS] Propensity to adverse reactions (disorder) 7 [facility] Repository (2 sources) carBAMazepine Drug Allergy 7 [facility] Repository (2 sources) cefaclor Drug Allergy 7 [facility]OF [facility] Repository (2 sources) DULoxetine Drug Allergy 7 AOF [facility] Repository (1 source) OXcarbazepine Drug Allergy 7 [facility] Repository (1 source) bee venom Drug allergy (disorder) 7 [facility] Repository (1 source) Bee pollen Allergy to substance 3 Unknown [facility] Work Phone: (1 source) Carbamazepine Allergy to substance 3 Unknown [facility] Healthcare Medications Current Medications Medication Drug Class(es) Dates Sig (Normalized) Sig (Original) acetaminophen 325 mg / HYDROcodone bitartrate 10 mg oral tablet (1 source) Opioid Agonist Start: 08-08-2023 take 2 tablets by mouth every six hours for pain HYDROcodone-aceta minophen ([place]) 10-325 MG tablet Indications: Degenerative disc disease at L5-S1 level Take 2 tablets by mouth every 6 (six) hours if needed for severe pain. 120 tablet 0 08/08/2023 Active [id number] 200 actuat albuterol 0.09 mg/actuat metered dose [...] morning and at noon. 0 05/16/2022 Active [id number] 0.15 ml EPINEPHrine 1 mg/ml auto-injector (1 [...] Start: 07-24-2023 take 1 capsule by mo ut every twenty-four hours in the morning venlafaxine [...] by: ALEXX MARIE Date: 2023-02-06 13:52 Normal [facility] Discharge Summaryon 06-10-20 17 Discharge Summary MR#: [id number] Dutch Monique [...] hip were negative. Esophagram was done at [facility] torule out esophageal rupture. Esophagram came back negative. The patientwas started on normal diet and home medications were resumed. Thepatient's condition at discharge was stable. The patient was seen by PTand OT, which recommended home PT, otherwise the patient was [facility] by [facility] services. The patient was discharged [...] Dict: 06/09/2017/04:39 P/Rell Landrum Trans: 06/10/2017 02:22 A/[id number]_[id number] cc: Mitul Richmond M.D. [address] [place] [address] Normal [facility] CBC W/DIFFon 06-09-2017 Basophils Auto #/vol (Bld) 1.0 % Normal 0.0-2.0 [facility] Comment on above: Order Comment: No: D o not add to previous draw Performed By: #### 5 0103 ####[facility] [place] [address], [facility] Eosinophils/100 leukocytes 3.7 % Normal 0.0-5.0 [facility] Comment on above: Order Comment: No: D o not add to previous draw Performed By: #### 5 0103 ####[facility] [facility].[address] Erythrocyte distribution width Auto Ratio (RBC) 16.0 % Normal 11.5-16.9 [facility] Comment on above: Order Comment: No: D o not add to previous draw Performed By: #### 5 3 ####[facility] [facility].[address] Erythrocytes (RBC) 4.80 mill/mm3 Normal 4.30-5.90 [facility] Comment on above: Order Comment: No: D o not add to previous draw Performed By: #### 5 3 ####[facility] [facility].[address] Hematocrit (HCT) 45.6 % Normal 39.0-55.0 [facility] Comment on above: Order Comment: No: D o not add to previous draw Performed By: #### 5 0103 ####[facility] [facility] [place] [address], [facility] Hemoglobin mass conc (Bld) 15.3 g/dL Normal 13.9-16.3 [facility] Comment on above: Order Comment: No: D o not add to previous draw Performed By: #### 5 3 ####[facility] [place] [address], [facility] Lymphocytes/100 leukocytes 28.3 % Normal 20.0-40.0 [facility] Comment on above: Order Comment: No: D o not add to previous draw Performed By: #### 5 0103 ####[facility] [place] [address], [facility] MCH 31.9 pg Normal 24.0-32.0 [facility] Comment on above: Order Comment: No: D o not add to previous draw Performed By: #### 5 0103 ####[facility] [place] [address], [facility] MCHC mass conc (RBC) 33.6 g/dL Normal 32.0-36.0 [facility] Comment on above: Order Comment: No: D o not add to previous draw Performed By: #### 5 0103 ####[facility] [place] [address], [facility] MCV 95.1 fL Normal 80.0-100.0 [facility] Comment on above: Order Comment: No: D o not add to previous draw Performed By: #### 5 0103 ####[facility] [place] [address], [facility] METHOD Normal [facility] Comment on above: Order Comment: No: D o not add to previous draw Result Comment: Auto mated differential performedNormal RBC Morphology Performed By: #### 5 0103 ####[facility] [place] [address], [facility] MONOS 8.4 % High 2-8 [facility] Comment on above: Order Comment: No: D o not add to previous draw Performed By: #### 5 0103 ####[facility] [place] [address], [facility] Neutrophils/100 leukocytes 58.6 % Normal 50-70 [facility] Comment on above: Order Comment: No: D o not add to previous draw Performed By: #### 5 0103 ####[facility] [place] [address], [facility] PLAT CNT 144 Thou/mm3 Normal 100-400 [facility] Comment on above: Order Comment: No: D o not add to previous draw Performed By: #### 5 0103 ####[facility] [facility] WBC (Leukocytes) 5.4 Thou/mm3 Normal 4.0-10.0 [facility] Comment on above: Order Comment: No: D o not add to previous draw Performed By: #### 5 0103 ####[facility] [facility] [place] [address] [place] [address] COMP METABOLIC PANELon 06-09 Alanine aminotransferase (ALT) 20 U/L Normal 7-52 [facility] Comment on above: Order Comment: No: D o not add to previous draw Performed By: #### 4 1000, 66077, 94556 ####[facility] [facility].[address] Albumin 3.6 g/dL Normal 3.5-5.7 [facility] Comment on above: Order Comment: No: D o not add to previous draw Performed By: #### 4 1000, 70863, 75305 ####[facility] [facility].[address] ALKALINE PHOSPH 79 IU/L Normal 34-104 [facility] Comment on above: Order Comment: No: D o not add to previous draw Performed By: #### 4 1000, 39975, 79523 ####[facility] [facility] Aspartate aminotransferase (AST) 21 U/L Normal 13-39 [facility] Comment on above: Order Comment: No: D o not add to previous draw Performed By: #### 4 1000, 54517, 68582 ####[facility] [facility] [place] [address], [facility] Bilirubin (total) 0.6 mg/dL Normal 0.3-1.0 [facility] Comment on above: Order Comment: No: D o not add to previous draw Performed By: #### 4 1000, 59647, 61137 ####[facility] [place] [address], [place] Calcium 8.5 mg/dL Low 8.6-10.3 [facility] Comment on above: Order Comment: No: D o not add to previous draw Performed By: #### 4 1000, 87169, 12099 ####[facility] [place] [address], [place] Chloride 105 mmol/L Normal 98-107 [facility] Comment on above: Order Comment: No: D o not add to previous draw Performed By: #### 4 1000, 91804, 35189 ####[facility] [place] [address], [place] CO2 23 mmol/L Normal 21-31 [facility] Comment on above: Order Comment: No: D o not add to previous draw Performed By: #### 4 1000, 60327, 37879 ####[facility] [place] [address], [place] Creatinine 0.69 mg/dL Low 0.70-1.30 [facility] Comment on above: Order Comment: No: D o not add to previous draw Performed By: #### 4 1000, 44163, 36653 ####[facility] [place] [address], [facility] eGFR (black) mL/min/{1.73_m2} Normal >60 [facility] Comment on above: Order Comment: No: D o not add to previous draw Performed By: #### 4 1000, 02387, 46478 ####[facility] [place] [address], [place] eGFR (non-black) mL/min/{1.73_m2} Normal >60 Th e [facility] Comment on above: Order Comment: No: D o not add to previous draw Performed By: #### 4 1000, 76430, 42407 ####[facility] [place] [address], [facility] Glucose mass conc 72 mg/dL Normal 70-100 [facility] Comment on above: Order Comment: No: D o not add to previous draw Performed By: #### 4 1000, 73083, 87193 ####[facility] [place] [address], [facility] Potassium molar conc 4.0 mmol/L Normal 3.5-5.1 [facility] Comment on above: Order Comment: No: D o not add to previous draw Performed By: #### 4 1000, 54666, 83110 ####[facility] [place] [address], [facility] Protein 5.8 g/dL Low 6.0-8.3 [facility] Comment on above: Order Comment: No: D o not add to previous draw Performed By: #### 4 1000, 75092, 35324 ####[facility] [place] [address], [facility] Sodium 135 mmol/L Low 136-145 [facility] Comment on above: Order Comment: No: D o not add to previous draw Performed By: #### 4 1000, 95520, 49169 ####[facility] [place] [address], [facility] Urea nitrogen 7 mg/dL Normal 7-25 [facility] Comment on above: Order Comment: No: D o not add to previous draw Performed By: #### 4 1000, 23135, 58725 ####[facility] [place] [address], [facility] LACTATE BLOODon 06-09-2017 Lactate 0.5 mmol/L Normal .5-2.2 [facility] Comment on above: Order Comment: No: D o not add to previous draw Performed By: #### 1 0054 ####[facility] [place] [address], [facility] MAGNESIUM BLOODon 06-09-2017 Magnesium 2.0 mg/dL Normal 1.9-2.7 [facility] Comment on above: Order Comment: No: D o not add to previous draw Performed By: #### 4 1000, 15585, 38169 ####[facility] [place] [address], [facility] PHOSPHORUS BLOODon 7 Phosphate 3.0 mg/dL Normal 2.5-5.0 [facility] Comment on above: Order Comment: No: D o not add to previous draw Performed By: #### 4 1000, 69599, 46570 ####[facility] [place] [address], [facility] BASIC METABOLIC PANELon 05-21 Calcium 8.7 mg/dL Normal 8.6-10.3 [facility] Comment on above: Order Comment: Yes: Add to Previous draw if able Performed By: #### 0 0071 ####[facility] [place] [address], [facility] Chloride 102 mmol/L Normal 98-107 [facility] Comment on above: Order Comment: Yes: Add to Previous draw if able Performed By: #### 0 0071 ####[facility] [place] [address], [facility] CO2 25 mmol/L Normal 21-31 [facility] Comment on above: Order Comment: Yes: Add to Previous draw if able Performed By: #### 0 0071 ####[facility] [place] [address], [facility] Creatinine 0.73 mg/dL Normal 0.70-1.30 [facility] Comment on above: Order Comment: Yes: Add to Previous draw if able Performed By: #### 0 0071 ####[facility] eGFR (black) mL/min/{1.73_m2} Normal >60 [facility] Comment on above: Order Comment: Yes: Add to Previous draw if able Performed By: #### 0 0071 ####[facility] [facility] eGFR (non-black) mL/min/{1.73_m2} Normal >60 Th e [facility] Comment on above: Order Comment: Yes: Add to Previous draw if able Performed By: #### 0 0071 ####[facility] [facility] Glucose mass conc 97 mg/dL Normal 70-100 [facility] Comment on above: Order Comment: Yes: Add to Previous draw if able Performed By: #### 0 0071 ####[facility] [facility] Potassium molar conc 3.9 mmol/L Normal 3.5-5.1 [facility] Comment on above: Order Comment: Yes: Add to Previous draw if able Performed By: #### 0 0071 ####[facility] [facility] [address], [facility] Sodium 133 mmol/L Low 136-145 [facility] Comment on above: Order Comment: Yes: Add to Previous draw if able Performed By: #### 0 0071 ####[facility] [facility].[address] Urea nitrogen 6 mg/dL Low 7-25 [facility] Comment on above: Order Comment: Yes: Add to Previous draw if able Performed By: #### 0 0071 ####[facility] [facility] CBC COMPLETE BLOOD COUNTon 0 - Erythrocyte distribution width Auto Ratio (RBC) 16.3 % Normal 11.5-16.9 [facility] Comment on above: Order Comment: Yes: Add to Previous draw if able Performed By: #### 5 0608 ####[facility] [facility].[address] Erythrocytes (RBC) 4.73 mill/mm3 Normal 4.30-5.90 [facility] Comment on above: Order Comment: Yes: Add to Previous draw if able Performed By: #### 5 0608 ####[facility] [facility].[address] Hematocrit (HCT) 45.0 % Normal 39.0-55.0 [facility] Comment on above: Order Comment: Yes: Add to Previous draw if able Performed By: #### 5 0608 ####[facility] Hemoglobin mass conc (Bld) 15.4 g/dL Normal 13.9-16.3 [facility] Comment on above: Order Comment: Yes: Add to Previous draw if able Performed By: #### 5 0608 ####[facility] [facility].[address] MCH 32.5 pg High 24.0-32.0 [facility] Comment on above: Order Comment: Yes: Add to Previous draw if able Performed By: #### 5 0608 ####[facility] [facility].[address] MCHC mass conc (RBC) 34.2 g/dL Normal 32.0-36.0 [facility] Comment on above: Order Comment: Yes: Add to Previous draw if able Performed By: #### 5 0608 ####[facility] MCV 95.1 fL Normal 80.0-100.0 [facility] Comment on above: Order Comment: Yes: Add to Previous draw if able Performed By: #### 5 0608 ####[facility] [facility] [address], [facility] PLAT CNT 157 Thou/mm3 Normal 100-400 [facility] Comment on above: Order Comment: Yes: Add to Previous draw if able Performed By: #### 5 0608 ####[facility] [place] [address], [facility] WBC (Leukocytes) 9.0 Thou/mm3 Normal 4.0-10.0 [facility] Comment on above: Order Comment: Yes: Add to Previous draw if able Performed By: #### 5 0608 ####[address] [address], [facility] ESOPHAGRAMon 06-08-2017 ESOPHAGRAM [facility] [place] [id number] P atient Name: DUTCH MONIQUE : 1955Sex: MAge: Race: WhiteMRN: [id number]. Location: [id number] Status: IVisit #: [id number] Date: 06/08/2017 3:35:00 PMCompleted Date: 06/08/2017 05:01 PMRequesting Provider: GUERITA HICKS Attending Provider: BEA EPSTEIN Report Copy To: Signs & Symptoms: DysphagiaHistory: Patient history not availableComments: R/O PerforationExam: ESOPHAGRAMAccession #: [id number] ======ESOPHAGRAM 06/08/2017 5:01 PM EDT SIGNS AND [...] Electronically signed by:Dutch De Souza. Transcribed by: [email or web address], User Resident: ARCELIA COLINElectronically Signed by: DUTCH DE SOUZA @ 06/09/2017 07:05 AMI personally read this/these film(s) with this resident Normal [facility] Comment on above: Order Comment: R/O P erforation History and Physicalon 06-08 History and Physical [id number] Admitted: 06/08/2017 Date of : 1955 Attending Physician: Bea Epstein MD Room #: [id number] Discharge Date: HISTORY AND PHYSICALCHIEF COMPLAINT: Neck [...] speaking/hoarseness.He eventually went and [facility], where a CT of the neck showed some prevertebral subcutaneousemphysema as well as a fracture of the right portion of the hyoid bone. Hewas then transferred to [facility] for furtherevaluation in stable condition.PAST MEDICAL HISTORY: Type 2 diabetes mellitus, epilepsy, COPD/chronicbronchitis, and chronic back pain.PAST SURGICAL HISTORY: Back surgery, right knee ACL surgery,cholecystectomy, nose surgery, and teeth removal.FAMILY HISTORY: Noncontributory.SOCIAL HISTORY: One-half pack per day smoker for at least 14 years. Hehad quit before this time for 23 years, but smoked before then. No alcoholor drug use.MEDICATIONS: Lithonia, tizanidine, phenytoin, primidone, Effexor XR, Zocor,lamotrigine, zolpidem, [...] respiratory rate 23, blood pressure 138/67, O2 tqsdptfwiv01% on room air.GENERAL: No acute distress. Hoarseness [...] his neck and now presents with increased bpueorvp-hf-bujjrh painand hoarseness with imaging showing prevertebral subcutaneous emphysema aswell as a mildly displaced fracture in the right portion of the hyoidbone.PLAN:1. The patient is admitted to the Trauma Service under Dr. pEstein.2. We will keep the patient n.p.o. for [...] Dict: 06/08/2017/12:48 P/WYATT Cuellarate Trans: 06/08/2017 08:50 P/[id number] Normal [facility] TOX PANEL URINEon 06-08-2017 50 THC Negative Normal NEGATIVE [facility] Comment on above: Order Comment: Yes: Add to Previous draw if able Performed By: #### 3 1079 ####[facility] [facility] [place] [address], [facility] BARBITURATES Positive Abnormal NEGATIVE [facility] Comment on above: Order Comment: Yes: Add to Previous draw if able Performed By: #### 3 1079 ####[facility] [place] [address], [facility] MONO AMPHET Negative Normal NEGATIVE [facility] Comment on above: Order Comment: Yes: Add to Previous draw if able Performed By: #### 3 1079 ####[facility] [place] [address], [facility] PROPOXYPHENE Negative Normal NEGATIVE [facility] Comment on above: Order Comment: Yes: Add to Previous draw if able Performed By: #### 3 1079 ####[facility] [place] [address], [facility] TRICYCLICS Negative Normal NEGATIVE [facility] Comment on above: Order Comment: Yes: Add to Previous draw if able Performed By: #### 3 1079 ####[facility] [place] [address], [place] Urine, benzodiazepines presence Negative Normal NEGATIVE [facility] Comment on above: Order Comment: Yes: Add to Previous draw if able Performed By: #### 3 1079 ####[facility] [place] [address], [place] Urine, cocaine presence Negative Normal NEGATIVE [facility] Comment on above: Order Comment: Yes: Add to Previous draw if able Performed By: #### 3 1079 ####[facility] [place] [address].[place] [address], [place] Urine, methadone presence Negative Normal NEGATIVE [facility] Comment on above: Order Comment: Yes: Add to Previous draw if able Performed By: #### 3 1079 ####[facility] [facility] [place] [address], [place] Urine, opiates presence Positive Abnormal NEGATIVE [facility] Comment on above: Order Comment: Yes: Add to Previous draw if able Performed By: #### [id number] ####[facility] [facility] [place] [address], [place] Urine, phencyclidine presence Negative Normal NEGATIVE [facility] Comment on above: Order Comment: Yes: Add to Previous draw if able Performed By: #### [id number] ####[facility] [place] [address].[place] [address], [facility] Encounters Encounter Date Encounter Type Care Provider Facility Start: 02-23-2024 End: 02-23-2024 ambulatory AMERICA CHRISTIANSON Not Available Start: 02-05-2024 End: 02-05-2024 ambulatory ANAID BELTRÁN Not Available Start: 11-24-2023 End: 11-24-2023 ambulatory AMERICA CHRISTIANSON Not Available Start: 11-24-2023 Chart abstracting America Ovalle er PA Work Phone: [facility] Start: 11-11-2023 End: 11-11-2023 ambulatory RADHA VIDAL Not Available Start: 02-06-2023 End: 02-07-[address] MITUL RICHMOND Facility: Start: 08-14-2017 Ambulatory ELLEN MORRIS Amanda ty:[facility] Start: 06-08-2017 End: 06-09-2017 Ambulatory BEA EPSTEIN Facility:[facility] Procedures Date Procedure Procedure Detail Performing Clinician [...] Visit [facility] [address] [facility] [address] [place] [id number] America Christianson PA [address] [facility] [address] [place] [address] [facility] Start: 09-06-2023 Hemoglobin A1c measurement Diabetes: Hemoglobin A1C [facility] Start: 07-04-2022 Urine screening for protein Diabetes: Urine Protein Screening [facility] Start: 1955 Screening for malign ant neoplasm of colon [facility] Immunizations Immunization Date Immunization Notes Care Provider Fa cility 09-10-2023 Pneumococcal Conjuga te PCV 20 America GAMEZ Work Phone: [facility] 09-10-2023 RSV, recombinant, pr otein subunit RSVpreF, adjuvant reconstitu, 120mcg/0.5mL, PF (Arexvy) America GAMEZ Work Phone: [facility] 08-14-2023 Pfizer Ziegler Cap SARS -CoV-2 Vaccination America Hemmer PA Work Phone: [facility] 08-08-2023 Influenza, High-dose Seasonal, Quadrivalent, Preservative Free America Hemmer PA Work Phone: [facility] 06-27-2021 influenza, injectabl e, quadrivalent, preservative free America Hemmer PA Work Phone: [facility] 09-29-2020 zoster vaccine recombinant K aren Hemmer PA Work Phone: [facility] 06-14-2020 influenza, high dose seasonal, preservative-free America Hemmer PA Work Phone: [facility] 06-14-2020 zoster vaccine recombinant K aren Hemmer PA Work Phone: [facility] 09-17-2019 Influenza, injectabl e, Madin Myrtle Canine Kidney, preservative free, quadrivalent America Hemmer PA Work Phone: [facility] 07-16-2018 seasonal influenza, intradermal, preservative free America Hemmer PA Work Phone: [facility] 09-04-2017 seasonal influenza, intradermal, preservative free America Hemmer PA Work Phone: [facility] 06-22-2014 seasonal influenza, intradermal, preservative free America Hemmer PA Work Phone: [facility] 03-22-2014 zoster vaccine, live America rea PA Work Phone: [facility] 2012 pneumococcal polysaccharide vaccine, 23 valent America Hemmer PA Work Phone: [facility] Payers Date Payer Category Payer Medicare MEDICARE MEDICAR E PART B [id number] 2023-[place] [address] Medicare [id number] 2021 Medicaid MEDICAID [facility] [id number] 2021-Present [phone] [address] [place] [address] Medicaid [id number] 1959 Medicaid [id number] 1959 Medicare [id number] 1955 Unknown [id number] 1955 Unknown [id number] 1955 Unknown [id number] 1955 Unknown [id number] 1955 Unknown [id number] 1955 Unknown [id number] 1955 Unknown [id number] Unknown [id number] Social History Date Type Detail Facility Start: 08-08-2023 Tobacco smoking stat [facility] Smokes tobacco daily [facility] History of tobacco use Cigarette Smoker [facility] Start: 08-08-2023 End: 11-11-2023 Cigarettes smoked current (pack per day) - Reported 1 [facility] Start: 08-08-2023 Tobacco use and exposure Smoke less tobacco non-user [facility] Start: 11-11-2023 Alcohol intake Lifetime non-d gita (finding) [facility] Start: 08-08-2023 End: 11-11-2023 Tobacco use panel [facility] Start: 1955 Sex Assigned At Not on file [facility] Medical Equipment Procedure Code Equipment Code Equipment Origin al Text Equipment Identifier Dates 1 each by Other route in the morning and 1 each before bedtime. [id number] Start: 07-24-2023 Use as instructe d twice a day [id number] Start: 07-24-2023 End: 07-23-2024 Summary Purpose Family [...] and content) DATE CREATED AUTHOR 04/15/2018 [facility] DATE CREATED AUTHOR AUTHOR'S ORGANIZ ATION 04/15/2018 [facility] DATE CREATED AUTHOR AUTHOR'S ORGANIZ ATION 02/14/[address] [facility] DATE CREATED AUTHOR AUTHOR'S ORGANIZ ATION 02/24/2024 [facility] dical Specialists EPIC Care Teams (unrecognized sec tion and content) Pharmacy Clinical Specialist Relationship Specialty Start Date End Date Mitul Richmond MD [address] [facility] [address] [place] [address] PCP - ACO Reach 03/13/23 America Christianson PA [address] [facility] [address] [place] [address] Physician Pest Control Worker Family Medicine 11/03/23 FOR RECORDS PERTAINING TO [...] BE BASED ON THE PRIMARY CLINICAL RECORDS. [employer] provides no warranty or guarantee of the accuracy or completeness of information in this document.
--- NOTE | 2024-03-01 00:42 | ED.GIBLEED1 ---
HPI - GI Bleed General Chief complaint: GI Bleed Stated complaint: rectal bleeding Time Seen by Provider: 03/01/24 00:34 Source: patient Mode of arrival: ambulance Limitations: no limitations History of Present Illness HPI Narrative: patient states he was straining to have a BM. Afterwards he was wiping and describes rectal prolapse and bleeding. No abdominal pain. Denies past history of rectal prolapse. Arrives to the hospital via Squad. No nausea or vomiting . no recurrent bleeding Related Data Home Medications ?Medication ?Instructions ?Recorded ?Confirmed albuterol sulfate 90 mcg/actuation 2 inh inhalation Q4H PRN wheezing 06/02/23 02/29/24 aerosol inhaler aripiprazole 2 mg tablet 2 mg PO DAILY 06/02/23 02/29/24 epinephrine 0.15 mg/0.15 mL 0.15 ml subcut PRN allergic 06/02/23 auto-injector (for 33 to 66 lb reaction patients) fluticasone propionate 50 2 spray intranasal DAILY 06/02/23 02/29/24 mcg/actuation nasal spray,suspension hydrocodone 10 mg-acetaminophen 2 tab PO Q6H PRN pain 06/02/23 02/29/24 325 mg tablet pantoprazole 40 mg tablet,delayed 40 mg PO DAILY 06/02/23 02/29/24 release phenobarbital 32.4 mg tablet 32.4 mg PO TID 06/02/23 02/29/24 phenytoin sodium extended 100 mg 100 mg PO Q12H 06/02/23 02/29/24 capsule pregabalin 150 mg capsule 150 mg PO TID 06/02/23 02/29/24 primidone 50 mg tablet 100 mg PO Q12H 06/02/23 02/29/24 simvastatin 40 mg tablet 40 mg PO BEDTIME 06/02/23 02/29/24 tizanidine 4 mg tablet 8 mg PO Q8H 06/02/23 02/29/24 venlafaxine 150 mg 150 mg PO DAILY 06/02/23 02/29/24 capsule,extended release 24 hr albuterol sulfate 90 mcg/actuation 2 puff inhalation Q4H PRN 06/04/23 02/29/24 aerosol inhaler bronchospasm aripiprazole 2 mg tablet 2 mg PO QDAY 06/04/23 06/09/23 diphenhydramine HCl 50 mg capsule 50 mg PO QPM PRN sleep 06/04/23 06/09/23 (Banophen) fluticasone propionate 50 2 spray intranasal QDAY 06/04/23 06/09/23 mcg/actuation nasal spray,suspension hydrocodone 10 mg-acetaminophen 2 tab PO Q6H PRN pain 06/04/23 06/09/23 325 mg tablet pantoprazole 40 mg tablet,delayed 40 mg PO QDAY 06/04/23 06/09/23 release phenobarbital 32.4 mg tablet 32.4 mg PO Q8H 06/04/23 06/09/23 phenytoin sodium extended 100 mg 100 mg PO Q8H 06/04/23 06/09/23 capsule pregabalin 150 mg capsule 150 mg PO Q8H 06/04/23 06/09/23 tamsulosin 0.4 mg capsule 0.4 mg PO QDAY 06/04/23 02/29/24 diphenhydramine HCl 25 mg capsule 25 mg PO BEDTIME PRN sleep 06/09/23 02/29/24 (Banophen) Previous Rx's ?Medication ?Instructions ?Recorded hydrocodone 5 mg-acetaminophen 325 1 tab PO TID PRN pain 5 days #20 06/02/23 mg tablet tabs doxycycline hyclate 100 mg tablet 100 mg PO BID 10 days #20 tabs 10/30/23 erythromycin 5 mg/gram (0.5 %) eye 1 applic ophthalmic (eye) QID #3.5 10/30/23 ointment grams furosemide 20 mg tablet (Lasix) 20 mg PO DAILY #5 tabs 10/30/23 methylprednisolone 4 mg tablets in See Rx Instructions .Route 10/30/23 a dose pack (Medrol (Justin)) .COMPLEX #21 ea Allergies Allergy/AdvReac Type Severity Reaction Status Date / Time amoxicillin [From Augmentin] Allergy Unknown Verified 02/29/24 23:54 cefaclor [From Ceclor] Allergy Unknown Verified 02/29/24 23:54 clavulanic acid Allergy Unknown Verified 02/29/24 23:54 [From Augmentin] duloxetine [From Cymbalta] Allergy Unknown Verified 02/29/24 23:54 bee venom protein (honey bee) Allergy Anaphylaxis Verified 02/29/24 23:54 carbamazepine [From Tegretol] Allergy Weakness Verified 02/29/24 23:54 Review of Systems ROS Status of ROS 10 or more systems reviewed and unremarkable except as noted in history and below [facility] Medical History (Updated 03/01/24 @ 01:40 by Gerber Gomez MD) Epilepsy ?G40.909 - Epilepsy, unspecified, not intractable, without status epilepticus (ICD-10) Postoperative nausea and vomiting ?R11.2 - Nausea with vomiting, unspecified (ICD-10) ?Z98.890 - Other specified postprocedural states (ICD-10) Humerus fracture ?S42.309A - Unspecified fracture of shaft of humerus, unspecified arm, initial encounter for closed fracture (ICD-10) Diabetes ?E11.9 - Type 2 diabetes mellitus without complications (ICD-10) High cholesterol ?E78.00 - Pure hypercholesterolemia, unspecified (ICD-10) GERD (gastroesophageal reflux disease) ?K21.9 - Gastro-esophageal reflux disease without esophagitis (ICD-10) IBS (irritable bowel syndrome) ?K58.9 - Irritable bowel syndrome without diarrhea (ICD-10) Migraine ?G43.909 - Migraine, unspecified, not intractable, without status migrainosus (ICD-10) Seizures ?R56.9 - Unspecified convulsions (ICD-10) Vision loss ?H54.7 - Unspecified visual loss (ICD-10) Bronchitis ?J40 - Bronchitis, not specified as acute or chronic (ICD-10) Anxiety ?F41.9 - Anxiety disorder, unspecified (ICD-10) Depression ?F32.A - Depression, unspecified (ICD-10) Hematochezia ?K92.1 - Melena (ICD-10) Arthritis ?M19.90 - Unspecified osteoarthritis, unspecified site (ICD-10) Back pain ?M54.9 - Dorsalgia, unspecified (ICD-10) Neuropathy ?G62.9 - Polyneuropathy, unspecified (ICD-10) Chickenpox ?B01.9 - Varicella without complication (ICD-10) Measles ?B05.9 - Measles without complication (ICD-10) Mumps ?B26.9 - Mumps without complication (ICD-10) Hernia of anterior abdominal wall ?K43.9 - Ventral hernia without obstruction or gangrene (ICD-10) Inguinal hernia ?K40.90 - Unilateral inguinal hernia, without obstruction or gangrene, not specified as recurrent (ICD-10) Fusion of spine ?M43.20 - Fusion of spine, site unspecified (ICD-10) H/O reduction of closed fracture ?Z87.81 - Personal history of (healed) traumatic fracture (ICD-10) Retinal detachment ?H33.20 - Serous retinal detachment, unspecified eye (ICD-10) Chronic sinusitis ?J32.9 - Chronic sinusitis, unspecified (ICD-10) Rosacea ?L71.9 - Rosacea, unspecified (ICD-10) Colonoscopy planned (03/21/21) Surgical History (Updated 06/13/23 @ 07:45 by Adriane Joshua) S/P cataract extraction and insertion of intraocular lens ?Z98.49 - Cataract extraction status, unspecified eye (ICD-10) ?Z96.1 - Presence of intraocular lens (ICD-10) H/O nasal septoplasty ?Z98.890 - Other specified postprocedural states (ICD-10) Hx of tonsillectomy ?Z90.89 - Acquired absence of other organs (ICD-10) History of cholecystectomy ?Z90.49 - Acquired absence of other specified parts of digestive tract (ICD-10) Hx of anterior cruciate ligament tear reconstruction ?Z98.890 - Other specified postprocedural states (ICD-10) History of bunionectomy ?Z98.890 - Other specified postprocedural states (ICD-10) Family History (System 06/13/23 @ 07:45 by Adriane Joshua) Aunt Family history not known due to adoption Mother Family history of CHF (congestive heart failure) Family history of COPD (chronic obstructive pulmonary disease) Family history of heart disease Family history of hypertension Social History Within the past year, how often did you have a drink containing alcohol: never Score interpretation: A score less than 4 is consistent with normal alcohol consumption. Smoking status: Current every day smoker What tobacco products do you use: cigars Non-prescribed substance use: denies use Previous occupational history: DISABLED Highest level of school completed/degree received: Associate degree: academic program Exam Constitutional Vital Signs, click to edit/add: Last Vital Signs Temp 98.1 F 02/29/24 23:51 Pulse 72 02/29/24 23:51 Resp 16 02/29/24 23:51 BP 140/81 03/01/24 01:10 Pulse Ox 96 02/29/24 23:51 O2 Del Method Room Air 02/29/24 23:51 Common normals: no apparent distress, average body habitus, oriented x3, no limitations, healthy appearing, alert and well nourished [facility] Common normals: normocephalic and head/scalp atraumatic Respiratory Common normals: normal respiratory effort, no retractions and no use of accessory muscles Cardio Common normals: regular rate, regular rhythm, S1 normal heart sound and S2 normal heart sound GI Common normals: Normal to inspection, nondistended, normoactive bowel sounds present, soft to palpation and non-tender Other: rectum with external hemorrhoids. no prolapse at this time. Digital exam without blood. empty vault Extremity Common normals: normal to inspection and full ROM Neuro Common normals: oriented x3, CN's II-XII intact bilaterally, moves all extremities and no focal motor deficits Psych Appearance: grossly normal Course Vital Signs Vital signs: Vital Signs Temperature 98.1 F 02/29/24 23:51 Pulse Rate 72 02/29/24 23:51 Respiratory Rate 16 02/29/24 23:51 Blood Pressure 162/93 H 02/29/24 23:51 Pulse Oximetry 96 02/29/24 23:51 Oxygen Delivery Method Room Air 02/29/24 23:51 Temperature 98.1 F 02/29/24 23:51 Pulse Rate 72 02/29/24 23:51 Respiratory Rate 16 02/29/24 23:51 Blood Pressure 140/81 03/01/24 01:10 Pulse Oximetry 96 02/29/24 23:51 Oxygen Delivery Method Room Air 02/29/24 23:51 MDM - GI Bleed MDM Narrative Medical decision making narrative: patient presents after episode of rectal bleeding at home. He describes rectal prolapse. something hanging out . On exam noted to have ext. hemorrhoids with no evidence of recent bleed. Digital exam with findings of empty vault and no blood. He did have on depends and there was a small amount of blood in the depends. CBC WNL. No recurrent bleeding. Discharged home to followup with Gen. surgery as he will likely need endoscopic procedure Lab Data Labs: Lab Results 03/01/24 Range/Units 01:00 WBC 7.7 (4.0-11.0) 10^3/uL RBC 4.36 L (4.70-6.10) 10^6/uL Hgb 13.7 L (14.0-18.0) g/dL Hct 39.9 L (42.0-54.0) % MCV 91.5 (80.0-94.0) fL MCH 31.4 (25.9-34.0) pg MCHC 34.3 (29.9-35.2) g/dL RDW 14.3 (11.0-15.0) % Plt Count 234 (150-450) 10^3/uL MPV 9.3 L (9.5-13.5) fL Neut % (Auto) 57.7 (43.0-75.0) % Lymph % (Auto) 26.9 (20.5-60.0) % Burt % (Auto) 9.6 (1.7-12.0) % Eos % (Auto) 4.3 (0.9-7.0) % Baso % (Auto) 1.2 (0.2-2.0) % Neut # (Auto) 4.5 (1.4-6.5) 10^3/uL Lymph # (Auto) 2.1 (1.2-3.8) 10^3/uL Burt # (Auto) 0.7 (0.3-0.8) 10^3/uL Eos # (Auto) 0.3 (0.0-0.7) 10^3/uL Baso # (Auto) 0.1 (0.0-0.1) 10^3/uL Abs Immat Gran (auto) 0.02 (0.00-0.03) 10^3/uL Imm/Tot Granulo (auto) 0.3 (0.0-0.5) % Sodium 133 L (136-145) mmol/L Potassium 4.5 (3.5-5.1) mmol/L Chloride 98 (98-107) mmol/L Carbon Dioxide 29.4 (21.0-32.0) mmol/L Anion Gap 10.1 BUN 16.0 (7.0-18.0) mg/dL Creatinine 0.81 (0.70-1.30) mg/dL Est GFR ( Amer) >60 (>=60) Est GFR (Non-Af Amer) >60 (>=60) BUN/Creatinine Ratio 19.8 Glucose 108 H (74-106) mg/dL Lactate 1.2 (0.4-2.0) mmol/L Calcium 9.1 (8.5-10.1) mg/dL Discharge Plan Discharge Stand Alone Forms: Portal Instructions Chief Complaint: GI Bleed Clinical Impression: Bright red rectal bleeding Patient Disposition: Home, Self-Care Prescriptions / Home Meds: No Action albuterol sulfate 90 mcg/actuation HFA aerosol inhaler 2 inh INHALATION Q4H PRN (Reason: wheezing) aripiprazole 2 mg tablet 2 mg PO DAILY epinephrine 0.15 mg/0.15 mL auto-injector 0.15 ml subcut PRN (Reason: allergic reaction) fluticasone propionate 50 mcg/actuation spray,suspension 2 spray INTRANASAL DAILY hydrocodone-acetaminophen 10-325 mg tablet 2 tab PO Q6H PRN (Reason: pain) pantoprazole 40 mg tablet,delayed release (DR/EC) 40 mg PO DAILY phenobarbital 32.4 mg tablet 32.4 mg PO TID phenytoin sodium extended 100 mg capsule 100 mg PO Q12H pregabalin 150 mg capsule 150 mg PO TID primidone 50 mg tablet 100 mg PO Q12H simvastatin 40 mg tablet 40 mg PO BEDTIME tizanidine 4 mg tablet 8 mg PO Q8H venlafaxine 150 mg capsule,extended release 24hr 150 mg PO DAILY hydrocodone-acetaminophen 5-325 mg tablet 1 tab PO TID PRN (Reason: pain) 5 Days Qty: 20 0RF albuterol sulfate 90 mcg/actuation HFA aerosol inhaler 2 puff INHALATION Q4H PRN (Reason: bronchospasm) aripiprazole 2 mg tablet 2 mg PO QDAY fluticasone propionate 50 mcg/actuation spray,suspension 2 spray INTRANASAL QDAY hydrocodone-acetaminophen 10-325 mg tablet 2 tab PO Q6H PRN (Reason: pain) pantoprazole 40 mg tablet,delayed release (DR/EC) 40 mg PO QDAY phenobarbital 32.4 mg tablet 32.4 mg PO Q8H phenytoin sodium extended 100 mg capsule 100 mg PO Q8H pregabalin 150 mg capsule 150 mg PO Q8H tamsulosin 0.4 mg capsule 0.4 mg PO QDAY diphenhydramine HCl [Banophen] 50 mg capsule 50 mg PO QPM PRN (Reason: sleep) diphenhydramine HCl [Banophen] 25 mg capsule 25 mg PO BEDTIME PRN (Reason: sleep) Rx Instructions: 25 mg orally PRN; methylprednisolone [Medrol (Justin)] 4 mg tablets,dose pack See Rx Instructions .ROUTE .COMPLEX Qty: 21 0RF Rx Instructions: Taper as directed doxycycline hyclate 100 mg tablet 100 mg PO BID 10 Days Qty: 20 0RF furosemide [Lasix] 20 mg tablet 20 mg PO DAILY Qty: 5 0RF erythromycin 5 mg/gram (0.5 %) ointment 1 applic ophthalmic (eye) QID Qty: 3.5 0RF Print Language: Frisian Instructions: Rectal Bleeding (ED) Additional Instructions: call General Surgery Dr Berry office to schedule an appointment in the next few days Referrals: HARPER PERRY [Primary Care Provider] - 1 week Discharge Date/Time: 03/01/24 03:16
[2024-03-01 01:10] VITALS: BP 125/77; BP 140/81; BP 162/93
[2024-03-01 01:17] LABS: Basophils Absolute Auto 0.1 10^3/uL (0.0-0.1); Basophils Percent Auto 1.2 % (0.2-2.0); Eosinophils Absolute Auto 0.3 10^3/uL (0.0-0.7); Eosinophils Percent Auto 4.3 % (0.9-7.0); Hematocrit 39.9 % (42.0-54.0); Hemoglobin 13.7 g/dL (14.0-18.0); Immature Granulocytes Abs Auto 0.02 10^3/uL (0.00-0.03); Immature Granulocytes Pct Auto 0.3 % (0.0-0.5); Lymphocytes Absolute Auto 2.1 10^3/uL (1.2-3.8); Lymphocytes Percent Auto 26.9 % (20.5-60.0); Mean Corpuscular HGB Conc 34.3 g/dL (29.9-35.2); Mean Corpuscular Hemoglobin 31.4 pg (25.9-34.0); Mean Corpuscular Volume 91.5 fL (80.0-94.0); Mean Platelet Volume 9.3 fL (9.5-13.5); Monocytes Absolute Auto 0.7 10^3/uL (0.3-0.8); Monocytes Percent Auto 9.6 % (1.7-12.0); Neutrophils Absolute Auto 4.5 10^3/uL (1.4-6.5); Neutrophils Percent Auto 57.7 % (43.0-75.0); Platelet Count 234 10^3/uL (150-450); Red Blood Count 4.36 10^6/uL (4.70-6.10); Red Cell Distribution Width 14.3 % (11.0-15.0); White Blood Count 7.7 10^3/uL (4.0-11.0)
[2024-03-01 01:26] LABS: Anion Gap 10.1; BUN Creatinine Ratio 19.8; Calcium 9.1 mg/dL (8.5-10.1); Carbon Dioxide 29.4 mmol/L (21.0-32.0); Chloride 98 mmol/L (98-107); Estimated GFR (African America >60 (>=60); Estimated GFR (Non-African Ame >60 (>=60); Glucose 108 mg/dL (74-106); Potassium 4.5 mmol/L (3.5-5.1); Sodium 133 mmol/L (136-145)
[2024-03-01] MEDS: 0.9 % SODIUM CHLORIDE 1,000 ML 999 ML IV (01:29)
[2024-03-01 01:34] LABS: Lactate/Lactic Acid 1.2 mmol/L (0.4-2.0)
== END 2024-03-01 03:16 | disposition home or self-care (01) ==
PROVIDERS: Emergency Provider Internal Medicine; PCP Internal Medicine
DX: K62.5 Hemorrhage of anus and rectum (principal); Z79.899 Other long term (current) drug therapy; G40.909 Epilepsy, unspecified, not intractable, without status epilepticus; E11.9 Type 2 diabetes mellitus without complications; E78.00 Pure hypercholesterolemia, unspecified; K21.9 Gastro-esophageal reflux disease without esophagitis; K58.9 Irritable bowel syndrome, unspecified; H54.7 Unspecified visual loss; F41.9 Anxiety disorder, unspecified; F32.A Depression, unspecified; M19.90 Unspecified osteoarthritis, unspecified site; Z98.1 Arthrodesis status; Z98.49 Cataract extraction status, unspecified eye; Z90.89 Acquired absence of other organs; Z90.49 Acquired absence of other specified parts of digestive tract
CPT/HCPCS: 36415; 80048; 83605; 85025; 99284

== ENCOUNTER 2024-05-24 11:19 | Outpatient (OUT) | payer MEDICARE, MEDICAID, SELFPAY ==
--- NOTE | 2024-05-24 | XR_ITS ---
[address] [address] Patient Name: DUTCH MONIQUE MRN: [id number] date: 1955 Sex: M Assigned Patient Location: Current Patient Location: Accession/Order Number: [id number] Exam Date: 05/24/2024 11:25 Report Date: 05/25/2024 15:00 At the request of: ANNI WILSON Procedure: XR elbow LT min 3V PROCEDURE: XR elbow LT min 3V HISTORY: LEFT ELBOW PAIN COMPARISON: XR elbow left 11/24/2023 FINDINGS: BONES:Prior mechanical fusion of supracondylar fracture of distal left humerus via bilateral plates and screws; no appreciable hardware fracture loosening. Exuberant callus formation along the posterior margin. No appreciable significant degenerative changes of the joint spaces. SOFT TISSUES:Posterior soft tissue swelling. EFFUSION:Suspect small joint effusion. OTHER: Negative. XR/XR elbow LT min 3V IMPRESSION: 1. Stable surgical changes without evidence of hardware failure or change in alignment. 2. No appreciable acute bone abnormality. 3. Suspect small joint effusion and grossly stable posterior soft tissue swelling. Bursitis?. Electronically authenticated by: ANNI WALLACE Date: 05/25/2024 15:00
== END 2024-05-24 11:20 | disposition home or self-care (01) ==
LOC: EC 11:19
PROVIDERS: PCP Internal Medicine; Visit Provider Orthopaedic Surgery
DX: S42.412D Displaced simple supracondylar fracture without intercondylar fracture of left humerus, subsequent encounter for fracture with routine healing (principal)
CPT/HCPCS: 73080

== ENCOUNTER 2024-07-21 13:39 | Outpatient (OUT) | payer MEDICARE, MEDICAID, SELFPAY ==
--- NOTE | 2024-07-21 13:45 | MR_ITS ---
[address] [address] Patient Name: DUTCH MONIQUE MRN: [id number] date: 1955 Sex: M Assigned Patient Location: MRI Current Patient Location: Accession/Order Number: [id number] Exam Date: 07/21/2024 14:00 Report Date: 07/22/2024 07:46 At the request of: MAXIMO NGUYEN Procedure: MR lumbar spine wo con MR lumbar spine wo con, 07/21/2024 2:00 PM EDT INDICATION: Lumbar radiculopathy M54.16 COMPARISON: Prior x-ray of the lumbar spine dated 12/31/2019 TECHNIQUE: Multiplanar, multisequential MRI images of lumbar spine were obtained without contrast. FINDINGS: For dictation purposes, the lowest complete disc space in the lumbar spine considered as L5-S1. There is loss of normal physiologic lumbar lordosis. The vertebral height is preserved. The conus medullaris is at the level of L1. No signal abnormality within the visualized spinal cord is noted. Level of T12-L1 is unremarkable. At the level of L1-L2, there are disc bulge with mild left neuroforaminal narrowing and no canal stenosis. At the level of L2-L3, there are disc bulge with mild left neuroforaminal narrowing and no canal stenosis. At the level of L3-4, there are disc bulge with [id number] bilateral neuroforaminal narrowing and mild canal stenosis. There are Modic type I changes at the anterior aspect of L3-L4. There are facet joint arthrosis with ligamentum flavum thickening contributing to canal stenosis. At the level of L4-5, there are disc bulge with severe bilateral neuroforaminal narrowing and moderate canal stenosis.There are facet joint arthrosis with ligamentum flavum thickening contributing to canal stenosis. At the level of L5-S1, there are disc bulge with severe bilateral neuroforaminal narrowing and mild canal stenosis. Bilateral S1 nerve roots are in close contact with the disc bulge in the lateral recesses. The paraspinal muscles are unremarkable. MR/MR lumbar spine wo con IMPRESSION: Moderate degenerative changes of lumbar spine in particular at L3-L4, L4-L5 and L5-S1. Electronically authenticated by: ANAHY HOLGUIN Date: 07/22/2024 07:46
--- OUTSIDE RECORDS SUMMARY | 2024-07-21 13:53 | XMS_ITS | CCD ---
Author Organization [facility] Care Team Providers Care Distance Learning Technician Name Role Phone FOREIGNJERMAIN ELLEN Burleson Unavailable Unavailable BEA EPSTEIN Unavailable Unavailable ELIOT VAZQUEZ Unavailable Unavailable MITUL RICHMOND Unavailable Unavailable [place] Unavailable Unavailable DUTCH DE SOUZA Unavailable Unavailable HEHEYDI STEINBERG Unavailable Unavailable VICKY, DR SALEEM Primary Care Unavailable VICKY, DR SALEEM Admitting Unavailable VICKY, DR SALEEM Attending Unavailable VICKY, DR SALEEM Consulting Unavailable NEFCYALEXX Consulting Unavailable VICKY, DR SALEEM Primary Care Unavailable VICKY, DR SALEEM Admitting Unavailable VICKY, DR SALEEM Attending Unavailable Mitul Richmond MD Unavailable America Velasquez Unavailable [phone] MARIZOL HIGHTOWER Attending Unavailable MITUL RICHMOND Primary Care Unavailable RADHA VIDAL Attending Unavailable AMERICA CHIRSTIANSON Attending Unavailable ANAID BELTRÁN Attending Unavailable ANAID BELTRÁN Referring Unavailable AMERICA CHRISTIANSON Attending Unavailable ANAID BELTRÁN Attending Unavailable ANAID BELTRÁN Attending Unavailable ANAID BELTRÁN Attending Unavailable ALVINO WILSON Attending Unavailable ANAID BELTRÁN Attending Unavailable AMERICA CHRISTIANSON Attending Unavailable MAXIMO NGUYEN Attending Unavailable MITUL RICHMOND Referring Unavailable ANAID BELTRÁN Attending Unavailable Allergies Allergy Classification Reported Allergen(s) Allergy Type Date of Onset Reaction(s) Facility (1 source) Bee/Wasp/Ant venom; Translations: [BEE STINGS] Propensity to adverse reactions (disorder) 7 [facility] Repository (2 sources) carBAMazepine Drug Allergy 7 [facility] Repository (2 sources) cefaclor Drug Allergy 7 [facility] Repository (2 sources) DULoxetine Drug Allergy 7 [facility] Repository (1 source) OXcarbazepine Drug Allergy 7 [facility] Repository (1 source) bee venom Drug allergy (disorder) [address] [facility] Repository (2 sources) Bee pollen; Translations: [BEE POLLEN] Allergy to substance 3 Unknown [facility] Work Phone: (2 sources) Carbamazepine; Translations: [CARBAMAZEPINE] Allergy to substance 3 Unknown [facility] (1 source) buPROPion; Translations: [BUPROPION HCL] Drug Allergy 4 [facility] Repository (1 source) Cefaclor; Translations: [CEFACLOR] Drug Allergy 4 [facility] Repository (1 source) DULoxetine; Translations: [DULOXETINE] Drug Allergy 4 [facility] Repository (1 source) OXcarbazepine; Translations: [OXCARBAZEPINE] Drug Allergy 4 [facility] Repository Medications Current Medications Medication Drug Class(es) Dates Sig (Normalized) Sig (Original) acetaminophen 325 mg / HYDROcodone bitartrate 10 mg oral tablet (1 source) Opioid Agonist Start: 08-08-2023 take 2 tablets by mouth every six hours for pain HYDROcodone-aceta minophen ([place]) 10-325 MG tablet Indications: Degenerative disc disease at L5-S1 level Take 2 tablets by mouth every 6 (six) hours if needed for severe pain. 120 tablet 0 08/08/2023 Active [id number] 200 actuat albuterol 0.09 mg/actuat metered dose [...] morning and at noon. 0 05/16/2022 Active [id number] 0.15 ml EPINEPHrine 1 mg/ml auto-injector (1 [...] Start: 07-24-2023 take 1 capsule by mo [facility] every twenty-four hours in the morning venlafaxine XR (Effexor XR) 150 MG 24 hr capsule Indications: Depressive disorder (CMS/HCC) Take 1 capsule (150 mg) by mouth in the morning. 100 capsule 3 07/24/2023 Active Problems Active Problems Problem Classification Problem Date Documented Da te Episodic/Chronic Blindness and vision defects (1 source) Visual impairment; Translations: [Unspecified visual loss] Onset: 3 03-24-2023 Chronic Chronic obstructive pulmonary disease and bronchiectasis (4 sources) Chronic obstructive pulmonary disease, unspecified; Translations: [Chronic obstructive lung disease] Onset: 7 03-24-2023 Chronic Diabetes mellitus with complications (2 sources) Peripheral neuropathy due to type 2 diabetes mellitus; Translations: [Type 2 diabetes mellitus with diabetic polyneuropathy] Onset: 3 Resolved: 3 10-31-2023 Chronic Diabetes mellitus without complication (1 source) Type 2 diabetes mellitus without complications; Translations: [TYPE 2 DIABETES MELLITUS WITHOUT COMPLICATIONS] Onset: Chronic Disorders of lipid metabolism (1 source) Mixed hyperlipidemia; Translations: [Mixed hyperlipidemia] Onset: 3 03-24-2023 Chronic Epilepsy; convulsions (3 sources) Epilepsy, unspecified, not intractable, without status epilepticus; Translations: [Localization-related epilepsy] Onset: 7 03-24-2023 Chronic Esophageal disorders (1 source) Gastroesophageal reflux disease without esophagitis; Translations: [Gastro-esophageal reflux disease without esophagitis] Onset: 3 03-24-2023 Chronic Essential hypertension (1 source) Hypertensive disorder; Translations: [Essential (primary) hypertension] Onset: 3 03-24-2023 Chronic External Injury - Fall (1 source) Fall on same level from slipping, tripping and stumbling with subsequent striking against other object, initial encounter; Translations: [FALL SAME LEV FROM SLIP/TRIP W STRIKE AGNST OTH OBJECT, INIT] Onset: 7 External Injury - Place of occurrence (1 source) Other place in unspecified non-institutional (private) residence as the place of occurrence of the external cause; Translations: [OTH PLACE IN UNSP NON-INSTITUT (PRIVATE) RESIDENCE PLACE] Onset: 7 Gastrointestinal hemorrhage (1 source) Hemorrhage of anus and rectum; Translations: [Hemorrhage of anus and rectum] Onset: 4 Episodic Headache; including migraine (1 source) Migraine; Translations: [Migraine, unspecified, not intractable, without status migrainosus] Onset: 3 03-24-2023 Chronic Hyperplasia of prostate (1 source) Benign prostatic hypertrophy with outflow obstruction; Translations: [Benign prostatic hyperplasia with lower urinary tract symptoms] Onset: 3 03-24-2023 Chronic Mood disorders (1 source) Depressive disorder; Translations: [Depressive disorder] Onset: 3 03-24-2023 Chronic Osteoarthritis (1 source) Degenerative joint disease involving multiple joints; Translations: [Polyosteoarthritis, unspecified] Onset: 3 03-24-2023 Chronic Other ear and sense organ disorders (1 source) Chronic otitis externa of left external auditory canal; Translations: [Unspecified chronic otitis externa, left ear] Onset: 3 03-24-2023 Chronic Other hereditary and degenerative nervous system conditions (1 source) Essential tremor; Translations: [Essential tremor] Onset: 3 03-24-2023 Chronic Other nervous system disorders (1 source) Other chronic pain; Translations: [OTHER CHRONIC PAIN] Onset: 7 Chronic Other nervous system disorders (1 source) Polyneuropathy; Translations: [Polyneuropathy, unspecified] Onset: 3 03-24-2023 Chronic Other non-traumatic joint disorders (4 sources) Pain in right ankle and joints of right foot; Translations: [PAIN IN RIGHT ANKLE] Onset: 3 Episodic Residual codes; unclassified (1 source) Tobacco use; Translations: [Tobacco use] Onset: 4 Episodic Spondylosis; intervertebral disc disorders; other back problems (2 sources) Other spondylosis, cervical region; Translations: [Degeneration of lumbosacral intervertebral disc] Onset: 7 03-24-2023 Chronic Substance-related disorders (2 sources) Nicotine dependence, cigarettes, uncomplicated; Translations: [Tobacco dependence caused by cigarettes] Onset: 7 03-24-2023 Chronic Unclassified (2 sources) Unknown / UNK(Unknown) Onset: 7 Unclassified (1 source) GI Bleeding Onset: 4 Past or Other Problems Problem Classification Problem [...] by: ALEXX MARIE Date: 2023-02-06 13:52 Normal [facility] Discharge Summaryon 06-10-20 17 Discharge Summary MR[id number] Admitted: 06/08/2017 Discharged: 06/09/2017 Date of : 1955 Physician: Heydi Walls M.D. DISCHARGE SUMMARYDISCHARGE ATTENDING: Dr. Walls.PRINCIPAL DIAGNOSIS: Neck injury following a fall on railing.SECONDARY DIAGNOSES: Chronic obstructive pulmonary disease, epilepsy, andtype 2 diabetes.PROCEDURES PERFORMED AND TREATMENT RENDERED: CTC, CT neck, x-ray ofabdomen and pelvis were performed in the emergency department at [facility]. CTC revealed cervical spondylosis with multi-facet DJD,otherwise no acute injuries. CT neck shows some right subcu emphysema inthe prevertebral tissue from the skull base to the superior mediastinum.X-ray of the pelvis and hip were negative. Esophagram was done at [facility] torule out esophageal rupture. Esophagram came back negative. The patientwas started on normal diet and home medications were resumed. Thepatient's condition at discharge was stable. The patient was seen by PTand OT, which recommended home PT, otherwise the patient was cleared to [facility] by both services. The patient was discharged [...] Dict: 06/09/2017/04:39 P/Rell Landrum Trans: 06/10/2017 02:22 A/Zonia_JN:[id number] cc: Mitul Richmond M.D. [address] [place] [address] Normal [facility] CBC W/DIFFon 06-09-2017 Basophils Auto #/vol (Bld) 1.0 % Normal 0.0-2.0 [facility] Comment on above: Order Comment: No: D o not add to previous draw Performed By: #### 5 0103 ####[place] [id number] [address] Eosinophils/100 leukocytes 3.7 % Normal 0.0-5.0 [facility] Comment on above: Order Comment: No: D o not add to previous draw Performed By: #### 5 0103 ####[place] [address] [facility].[address] Erythrocyte distribution width Auto Ratio (RBC) 16.0 % Normal 11.5-16.9 [facility] Comment on above: Order Comment: No: D o not add to previous draw Performed By: #### 5 0103 ####[facility] Erythrocytes (RBC) 4.80 mill/mm3 Normal 4.30-5.90 [facility] Comment on above: Order Comment: No: D o not add to previous draw Performed By: #### 5 0103 ####[facility] Hematocrit (HCT) 45.6 % Normal 39.0-55.0 [facility] Comment on above: Order Comment: No: D o not add to previous draw Performed By: #### 5 0103 ####[facility] Hemoglobin mass conc (Bld) 15.3 g/dL Normal 13.9-16.3 [facility] Comment on above: Order Comment: No: D o not add to previous draw Performed By: #### 5 0103 ####[facility] [facility].[address] Lymphocytes/100 leukocytes 28.3 % Normal 20.0-40.0 [facility] Comment on above: Order Comment: No: D o not add to previous draw Performed By: #### 5 0103 ####[facility] MCH 31.9 pg Normal 24.0-32.0 [facility] Comment on above: Order Comment: No: D o not add to previous draw Performed By: #### 5 0103 ####[facility] [place] [address], [facility] MCHC mass conc (RBC) 33.6 g/dL Normal 32.0-36.0 [facility] Comment on above: Order Comment: No: D o not add to previous draw Performed By: #### 5 0103 ####[facility] [place] [address], [facility] MCV 95.1 fL Normal 80.0-100.0 [facility] Comment on above: Order Comment: No: D o not add to previous draw Performed By: #### 5 0103 ####[facility] [place] [address], [facility] METHOD Normal [facility] Comment on above: Order Comment: No: D o not add to previous draw Result Comment: Auto mated differential performedNormal RBC Morphology Performed By: #### 5 0103 ####[facility] [place] [address], [facility] MONOS 8.4 % High 2-8 [facility] Comment on above: Order Comment: No: D o not add to previous draw Performed By: #### 5 0103 ####[facility] [place] [address], [facility] Neutrophils/100 leukocytes 58.6 % Normal 50-70 [facility] Comment on above: Order Comment: No: D o not add to previous draw Performed By: #### 5 0103 ####[facility] [place] [address], [facility] PLAT CNT 144 Thou/mm3 Normal 100-400 [facility] Comment on above: Order Comment: No: D o not add to previous draw Performed By: #### 5 0103 ####[facility] [facility] [place] [address], [facility] WBC (Leukocytes) 5.4 Thou/mm3 Normal 4.0-10.0 [facility] Comment on above: Order Comment: No: D o not add to previous draw Performed By: #### 5 0103 ####[facility] [place] [address], [facility] COMP METABOLIC PANELon 06-09 Alanine aminotransferase (ALT) 20 U/L Normal 7-52 [facility] Comment on above: Order Comment: No: D o not add to previous draw Performed By: #### 4 1000, 40329, 19552 ####[facility] [place] [address], [facility] Albumin 3.6 g/dL Normal 3.5-5.7 [facility] Comment on above: Order Comment: No: D o not add to previous draw Performed By: #### 4 1000, 51683, 69264 ####[facility] [place] [address], [facility] ALKALINE PHOSPH 79 IU/L Normal 34-104 [facility] Comment on above: Order Comment: No: D o not add to previous draw Performed By: #### 4 1000, 70641, 63471 ####[facility] [id number], [facility] Aspartate aminotransferase (AST) 21 U/L Normal 13-39 [facility] Comment on above: Order Comment: No: D o not add to previous draw Performed By: #### 4 1000, 21965, 96278 ####[facility] [place] [address], [place] Bilirubin (total) 0.6 mg/dL Normal 0.3-1.0 [facility] Comment on above: Order Comment: No: D o not add to previous draw Performed By: #### 4 1000, 25756, 64987 ####[facility] [place] [address], [place] Calcium 8.5 mg/dL Low 8.6-10.3 [facility] Comment on above: Order Comment: No: D o not add to previous draw Performed By: #### 4 1000, 37948, 75834 ####[facility] [place] [address], [place] Chloride 105 mmol/L Normal 98-107 [facility] Comment on above: Order Comment: No: D o not add to previous draw Performed By: #### 4 1000, 37783, 94174 ####[facility] [place] [address], [facility] CO2 23 mmol/L Normal 21-31 [facility] Comment on above: Order Comment: No: D o not add to previous draw Performed By: #### 4 1000, 44918, 66408 ####[facility] [place] [address], [facility] Creatinine 0.69 mg/dL Low 0.70-1.30 [facility] Comment on above: Order Comment: No: D o not add to previous draw Performed By: #### 4 1000, 44516, 37568 ####[facility] [place] [address], [facility] eGFR (black) mL/min/{1.73_m2} Normal >60 [facility] Comment on above: Order Comment: No: D o not add to previous draw Performed By: #### 4 1000, 67794, 43890 ####[facility] [place] [address], [facility] eGFR (non-black) mL/min/{1.73_m2} Normal >60 [facility] Comment on above: Order Comment: No: D o not add to previous draw Performed By: #### 4 1000, 33084, 88554 ####[facility] [place] [address], [place] Glucose mass conc 72 mg/dL Normal 70-100 [facility] Comment on above: Order Comment: No: D o not add to previous draw Performed By: #### 4 1000, 54541, 55678 ####[facility] [place] [address], [place] Potassium molar conc 4.0 mmol/L Normal 3.5-5.1 [facility] Comment on above: Order Comment: No: D o not add to previous draw Performed By: #### 4 1000, 79314, 41615 ####[facility] [place] [address], [place] Protein 5.8 g/dL Low 6.0-8.3 [facility] Comment on above: Order Comment: No: D o not add to previous draw Performed By: #### 4 1000, 36792, 63012 ####[facility] [place] [address], [facility] Sodium 135 mmol/L Low 136-145 [facility] Comment on above: Order Comment: No: D o not add to previous draw Performed By: #### 4 1000, 95337, 10601 ####[facility] [place] [address], [facility] Urea nitrogen 7 mg/dL Normal 7-25 [facility] Comment on above: Order Comment: No: D o not add to previous draw Performed By: #### 4 1000, 78468, 05533 ####[facility] [place] [address], [facility] LACTATE BLOODon 06-09-2017 Lactate 0.5 mmol/L Normal .5-2.2 [facility] Comment on above: Order Comment: No: D o not add to previous draw Performed By: #### 1 0054 ####[facility] [place] [address], [facility] MAGNESIUM BLOODon 06-09-2017 Magnesium 2.0 mg/dL Normal 1.9-2.7 [facility] Comment on above: Order Comment: No: D o not add to previous draw Performed By: #### 4 1000, 02614, 00118 ####[facility] [place] [address], [facility] PHOSPHORUS BLOODon 7 Phosphate 3.0 mg/dL Normal 2.5-5.0 [facility] Comment on above: Order Comment: No: D o not add to previous draw Performed By: #### 4 1000, 90744, 00490 ####[facility] BASIC METABOLIC PANELon 08-2 Calcium 8.7 mg/dL Normal 8.6-10.3 [facility] Comment on above: Order Comment: Yes: Add to Previous draw if able Performed By: #### 0 0071 ####[facility] [place] [address], [facility] Chloride 102 mmol/L Normal 98-107 [facility] Comment on above: Order Comment: Yes: Add to Previous draw if able Performed By: #### 0 0071 ####[facility] [place] [address], [facility] CO2 25 mmol/L Normal 21-31 [facility] Comment on above: Order Comment: Yes: Add to Previous draw if able Performed By: #### 0 0071 ####[place] [address] [place] [address], [facility] Creatinine 0.73 mg/dL Normal 0.70-1.30 [facility] Comment on above: Order Comment: Yes: Add to Previous draw if able Performed By: #### 0 0071 ####[facility] eGFR (black) mL/min/{1.73_m2} Normal >60 [facility] Comment on above: Order Comment: Yes: Add to Previous draw if able Performed By: #### 0 0071 ####[facility] eGFR (non-black) mL/min/{1.73_m2} Normal >60 [facility] Comment on above: Order Comment: Yes: Add to Previous draw if able Performed By: #### 0 0071 ####[facility] [place] [address], [facility] Glucose mass conc 97 mg/dL Normal 70-100 [facility] Comment on above: Order Comment: Yes: Add to Previous draw if able Performed By: #### 0 0071 ####[facility] Potassium molar conc 3.9 mmol/L Normal 3.5-5.1 [facility] Comment on above: Order Comment: Yes: Add to Previous draw if able Performed By: #### 0 0071 ####[facility] Sodium 133 mmol/L Low 136-145 [facility] Comment on above: Order Comment: Yes: Add to Previous draw if able Performed By: #### 0 0071 ####[facility] [facility] Urea nitrogen 6 mg/dL Low 7-25 [facility] Comment on above: Order Comment: Yes: Add to Previous draw if able Performed By: #### 0 0071 ####[facility] CBC COMPLETE BLOOD COUNTon 0 - Erythrocyte distribution width Auto Ratio (RBC) 16.3 % Normal 11.5-16.9 [facility] Comment on above: Order Comment: Yes: Add to Previous draw if able Performed By: #### 5 0608 ####[facility] Erythrocytes (RBC) 4.73 mill/mm3 Normal 4.30-5.90 [facility] Comment on above: Order Comment: Yes: Add to Previous draw if able Performed By: #### 5 0608 ####[facility] Hematocrit (HCT) 45.0 % Normal 39.0-55.0 [facility] Comment on above: Order Comment: Yes: Add to Previous draw if able Performed By: #### 5 0608 ####[facility] Hemoglobin mass conc (Bld) 15.4 g/dL Normal 13.9-16.3 [facility] Comment on above: Order Comment: Yes: Add to Previous draw if able Performed By: #### 5 0608 ####[address] MCH 32.5 pg High 24.0-32.0 [facility] Comment on above: Order Comment: Yes: Add to Previous draw if able Performed By: #### 5 0608 ####[address] MCHC mass conc (RBC) 34.2 g/dL Normal 32.0-36.0 [facility] Comment on above: Order Comment: Yes: Add to Previous draw if able Performed By: #### 5 0608 ####[address] MCV 95.1 fL Normal 80.0-100.0 [facility] Comment on above: Order Comment: Yes: Add to Previous draw if able Performed By: #### 5 0608 ####[address] PLAT CNT 157 Thou/mm3 Normal 100-400 [facility] Comment on above: Order Comment: Yes: Add to Previous draw if able Performed By: #### 5 0608 ####[address] WBC (Leukocytes) 9.0 Thou/mm3 Normal 4.0-10.0 [facility] Comment on above: Order Comment: Yes: Add to Previous draw if able Performed By: #### 5 0608 ####[address] ESOPHAGRAMon 06-08-2017 ESOP[facility]AGRAM [facility] [address] [place] [address] P atient Name: DUTCH MONIQUE : 1955Sex: MAge: Race: WhiteMRN: [id number]. Location: [id number] Status: IVisit #: [id number] Date: 06/08/2017 3:35:00 PMCompleted Date: 06/08/2017 05:01 PMRequesting Provider: GUERITA HICKS Attending Provider: BEA EPSTEIN Report Copy To: Signs & Symptoms: DysphagiaHistory: Patient history not availableComments: R/O PerforationExam: ESOPHAGRAMAccession #: [id number] ======ESOPHAGRAM 06/08/2017 5:01 PM EDT SIGNS AND [...] Electronically signed by:Dutch De Souza. Transcribed by: [email or web address], User Resident: ARCELIA COLINElectronically Signed by: DUTCH DE SOUZA @ 06/09/2017 07:05 AMI personally read this/these film(s) with this resident Normal [facility] Comment on above: Order Comment: R/O P erforation History and Physicalon 06-08 History and Physical [id number] Admitted: 06/08/2017 Date of : 1955 Attending Physician: Bea Epstein MD Room #: [id number] Discharge Date: HISTORY AND PHYSICALCHIEF COMPLAINT: Neck [...] speaking/hoarseness.He eventually went and was [facility], where a CT of the neck showed some prevertebral subcutaneousemphysema as well as a fracture of the right portion of the hyoid bone. [facility]was [facility] for furtherevaluation in stable condition.PAST MEDICAL HISTORY: Type 2 diabetes mellitus, epilepsy, COPD/chronicbronchitis, and chronic back pain.PAST SURGICAL HISTORY: Back surgery, right knee ACL surgery,cholecystectomy, nose surgery, and teeth removal.FAMILY HISTORY: Noncontributory.SOCIAL HISTORY: One-half pack per day smoker for at least 14 years. Hehad quit before this time for 23 years, but smoked before then. No alcoholor drug use.MEDICATIONS: [place], tizanidine, phenytoin, primidone, Effexor XR, Zocor,lamotrigine, zolpidem, [...] respiratory rate 23, blood pressure 138/67, O2 [id number]% on room air.GENERAL: No acute distress. Hoarseness [...] his neck and now presents with increased grqruhqa-ou-vkkvab painand hoarseness with imaging showing prevertebral subcutaneous [...] Dict: 06/08/2017/12:48 P/WYATT Cuellarate Trans: 06/08/2017 08:50 [id number] Normal [facility] TOX PANEL URINEon 06-08-2017 50 THC Negative Normal NEGATIVE [facility] Comment on above: Order Comment: Yes: Add to Previous draw if able Performed By: #### 3 1079 ####[facility] [place] [address], [facility] Positive Abnormal NEGATIVE [facility] Comment on above: Order Comment: Yes: Add to Previous draw if able Performed By: #### 3 1079 ####[facility] [place] [address], [place] MONO AMPHET Negative Normal NEGATIVE [facility] Comment on above: Order Comment: Yes: Add to Previous draw if able Performed By: #### 3 1079 ####[facility] [place] [address], [place] PROPOXYPHENE Negative Normal NEGATIVE [facility] Comment on above: Order Comment: Yes: Add to Previous draw if able Performed By: #### 3 1079 ####[facility] [place] [address], [place] TRICYCLICS Negative Normal NEGATIVE [facility] Comment on above: Order Comment: Yes: Add to Previous draw if able Performed By: #### 3 1079 ####[facility] [place] [address], [place] Urine, benzodiazepines presence Negative Normal NEGATIVE [facility] Comment on above: Order Comment: Yes: Add to Previous draw if able Performed By: #### 3 1079 ####[facility] [place] [address], [place] Urine, cocaine presence Negative Normal NEGATIVE [facility] Comment on above: Order Comment: Yes: Add to Previous draw if able Performed By: #### 3 1079 ####[facility] [place] [address], [place] Urine, methadone presence Negative Normal NEGATIVE [facility] Comment on above: Order Comment: Yes: Add to Previous draw if able Performed By: #### 3 1079 ####[facility] [place] [address], [facility] Urine, opiates presence Positive Abnormal NEGATIVE [facility] Comment on above: Order Comment: Yes: Add to Previous draw if able Performed By: #### 3 1079 ####[facility] [place] [address], [facility] Urine, phencyclidine presence Negative Normal NEGATIVE [facility] Comment on above: Order Comment: Yes: Add to Previous draw if able Performed By: #### 3 1079 ####[facility] [place] [address], [facility] Encounters Encounter Date Encounter Type Care Provider Facility Start: 07-08-2024 End: 07-08-2024 ambulatory ANAID A BROWN Not Available Start: 07-07-2024 End: 07-07-2024 ambulatory MAXIMO NGUYEN Not Available Start: 05-25-2024 End: 05-25-2024 ambulatory AMERICA CHRISTIANSON Not Available Start: 05-20-2024 End: 05-20-2024 ambulatory ANAID A BROWN Not Available Start: 05-11-2024 End: 05-11-2024 ambulatory ALVINO WILSON Not Available Start: 05-06-2024 End: 05-06-2024 ambulatory ANAID A BROWN Not Available Start: 04-29-2024 End: 04-29-2024 ambulatory ANAID A BROWN Not Available Start: 04-01-2024 End: 04-01-2024 ambulatory ANAID A BROWN Not Available Start: 03-10-2024 End: 03-10-2024 ambulatory [facility] Start: 02-23-2024 End: 02-23-2024 ambulatory AMERICA CHRISTIANSON Not Available Start: 02-05-2024 End: 02-05-2024 ambulatory ANAID A BROWN Not Available Start: 11-24-2023 Chart abstracting America Ovalle er PA Work Phone: [facility] Start: 11-24-2023 End: 11-24-2023 ambulatory AMERIAC CHRISTIANSON Not Available Start: 11-11-2023 End: 11-11-2023 ambulatory RADHA VIDAL Not Available Start: 02-06-2023 End: 02-07-[address] MITUL RICHOMND Facility: Start: 08-14-2017 Ambulatory ELLEN Velizi ty:[facility] Start: 06-08-2017 End: 06-09-2017 Ambulatory BEA STEENFRANCOCASTRO Facility:[facility] Procedures Date Procedure Procedure Detail [...] Visit [facility] [address] [facility] [address] [place] [address] America Christianson PA [address] [facility] [address] [place] [address] [facility] Start: 09-06-2023 Hemoglobin A1c measurement Diabetes: Hemoglobin A1C [facility] Start: 07-04-2022 Urine screening for protein Diabetes: Urine Protein Screening [facility] Start: 1955 Screening for malign ant neoplasm of colon [facility] Immunizations Immunization Date Immunization Notes Care Provider Fa cility 09-10-2023 Pneumococcal Conjuga te PCV 20 America GAMEZ Work Phone: [facility] 09-10-2023 RSV, recombinant, pr otein subunit RSVpreF, adjuvant reconstitu, 120mcg/0.5mL, PF (Arexvy) America GAMEZ Work Phone: [facility] 08-14-2023 Pfizer Ziegler Cap SARS -CoV-2 Vaccination America Hemmer PA Work Phone: [facility] 08-08-2023 Influenza, High-dose Seasonal, Quadrivalent, Preservative Free America Hemmer PA Work Phone: [facility] 06-27-2021 influenza, injectabl e, quadrivalent, preservative free America Hemmer PA Work Phone: [facility] 09-29-2020 zoster vaccine recombinant K aren Hemmer PA Work Phone: [facility] 06-14-2020 influenza, high dose seasonal, preservative-free America Hemmer PA Work Phone: [facility] 06-14-2020 zoster vaccine recombinant K aren Hemmer PA Work Phone: [facility] 09-17-2019 Influenza, injectabl e, Madin [place] Canine Kidney, preservative free, quadrivalent America Hemmer PA Work Phone: [facility] 07-16-2018 seasonal influenza, intradermal, preservative free America Hemmer PA Work Phone: [facility] 09-04-2017 seasonal influenza, intradermal, preservative free America Hemmer PA Work Phone: [facility] 06-22-2014 seasonal influenza, intradermal, preservative free America Hemmer PA Work Phone: [facility] 03-22-2014 zoster vaccine, live America rea PA Work Phone: [facility] 2012 pneumococcal polysaccharide vaccine, 23 valent America Hemmer PA Work Phone: [facility] Payers Date Payer Category Payer Medicare MEDICARE MEDICAR E PART B [id number] 2023-[place] [address] Medicare [id number] 2021 [place] [id number] 2021-Present [phone] [address] [place] [address] Medicaid [id number] 1959 Medicaid [id number] 1959 Medicare [id number] 1956 Unknown [id number] [id number]3 1956 Unknown [id number] 2.16.840.1.502666.3.579.2.593 1956 Unknown [id number] 2.16.840.1.957168.3.579.2.1286 1956 Unknown [id number] 2.16.840.1.257462.3.579.2.1259 1956 Unknown [id number] 2.16.840.1.105291.3.579.2.1259 1956 Unknown [id number] 2.16.840.1.346101.3.579.2.1259 1956 Unknown [id number] 2.16.840.1.705256.3.579.2.1259 1956 Unknown [id number] 2.16.840.1.356526.3.579.2.1259 1956 Unknown [id number] 2.16.840.1.869281.3.579.2.1259 1956 Unknown [id number] 2.16.840.1.792305.3.579.2.1259 1956 Unknown [id number] 2.16.840.1.586389.3.579.2.1259 1956 Unknown [id number] 2.16.840.1.492458.3.579.2.1259 1956 Unknown [id number] 2.16.840.1.096735.3.579.2.1259 1956 Unknown [id number] 2.16.840.1.773231.3.579.2.9 1956 Unknown [id number] 2.16.840.1.697897.3.579.2.1259 1956 Unknown [id number] 2.16.840.1.386549.3.579.2.1258 Unknown [id number] Social History Date Type Detail Facility Start: 08-08-2023 Tobacco smoking stat [facility] Smokes tobacco daily [facility] History of tobacco use Cigarette Smoker [facility] Start: 08-08-2023 End: 11-11-2023 Cigarettes smoked current (pack per day) - Reported 1 [facility] Start: 08-08-2023 Tobacco use and exposure Smoke less tobacco non-user [facility] Start: 11-11-2023 Alcohol intake Lifetime non-d gita (finding) [facility] Start: 08-08-2023 End: 11-11-2023 Tobacco use panel [facility] Start: 1955 Sex Assigned At Not on file N [facility] Medical Equipment Procedure Code Equipment Code Equipment Origin al Text Equipment Identifier Dates 1 each by Other route in the morning and 1 each before bedtime. 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 [id number] Start: 07-24-2023 End: 07-23-2024 Summary Purpose Family [...] section and content) DATE CREATED AUTHOR 04/15/2018 [facility] DATE CREATED AUTHOR AUTHOR'S ORGANIZ ATION 04/15/2018 [facility] DATE CREATED AUTHOR AUTHOR'S ORGANIZ ATION 02/14/2023 [facility] DATE CREATED AUTHOR AUTHOR'S ORGANIZ ATION 03/12/2024 [facility] DATE CREATED AUTHOR AUTHOR'S ORGANIZ ATION 07/09/2024 [facility] dical Specialists [facility] Care Teams (unrecognized sec tion and content) Distance Learning Technician Relationship Specialty Start Date End Date Mitul Richmond MD [address] [facility] [address] [place] [address] PCP - ACO Reach 03/13/23 America Christianson PA [address] [facility] [address] [place] [address] Physician Control Operator Family Medicine 11/03/23 FOR RECORDS PERTAINING TO [...] BE BASED ON THE PRIMARY CLINICAL RECORDS. [employer] provides no warranty or guarantee of the accuracy or completeness of information in this document.
== END 2024-07-21 13:40 | disposition home or self-care (01) ==
LOC: MRI 13:39
PROVIDERS: PCP Internal Medicine; Visit Provider Nurse Practitioner Family
DX: M54.16 Radiculopathy, lumbar region (principal); M51.369 Other intervertebral disc degeneration, lumbar region without mention of lumbar back pain or lower extremity pain; R26.81 Unsteadiness on feet
CPT/HCPCS: 72148

== ENCOUNTER 2025-01-06 12:35 | Emergency (ER) | payer MEDICARE, MEDICAID, SELFPAY ==
[2025-01-06 12:39] VITALS: BP 133/74; PULSE 63; TEMP 36.6; O2SAT 100; BMI 21.4
--- OUTSIDE RECORDS SUMMARY | 2025-01-06 12:54 | XMS_ITS | CCD ---
Author Organization [facility] ion [facility] Care Team Providers Care Excelsior Machine Operator Name Role Phone JAMESGricelELLEN Quiñonez Unavailable Unavailable SHARON EPSTEIN Unavailable Unavailable ELIOT VAZQUEZ Unavailable Unavailable MITUL RICHMOND Unavailable Unavailable KS Unavailable Unavailable DUTCH DE SOUZA Unavailable Unavailable HEIDHEYDI Sampson Unavailable Unavailable VICKY, DR SALEEM Primary Care Unavailable VICKY, DR SALEEM Admitting Unavailable DR MITUL RICHMOND Attending Unavailable VICKY, DR SALEEM Consulting Unavailable NEFCYALEXX Consulting Unavailable VICKY, DR SALEEM Primary Care Unavailable VICKY, DR SALEEM Admitting Unavailable VICKY, DR SALEEM Attending Unavailable Mitul Richmond MD Unavailable HemAmerica Draper Unavailable MARIZOL HIGHTOWER Attending Unavailable MITUL RICHMOND Primary Care Unavailable Mitul Richmond MD Primary Care Provider Alison ROSS, Venita Unavailable Mitul Richmond MD Primary Care Provider AMERICA CHRISTIANSON Attending Unavailable FRANDY AVITIA Attending Unavailable FRANDY AVITIA Referring Unavailable AMERICA CHRISTIANSON Attending Unavailable FRANDY AVITIA Attending Unavailable FRANDY AVITIA Attending Unavailable FRANDY AVITIA Attending Unavailable ALVINO TORRES Attending Unavailable FRANDY AVITIA Attending Unavailable AMERICA CHRISTIANSON Attending Unavailable MAXIMO NGUYEN Attending Unavailable MITUL RICHMOND Referring Unavailable FRANDY AVITIA Attending Unavailable ALVINO TORRES Attending Unavailable ALVINO TORRES Referring Unavailable AMERICA CHRISTIANSON Attending Unavailable MAXIMO NGUYEN Attending Unavailable ALVINO TORRES Attending Unavailable MAXIMO NGUYEN Referring Unavailable Allergies Allergy Classification Reported Allergen(s) Allergy Type Date of Onset Reaction(s) Facility (1 source) Bee/Wasp/Ant venom; Translations: [BEE STINGS] Propensity to adverse reactions (disorder) 7 [facility] Repository (2 sources) carBAMazepine Drug Allergy 7 [facility] (2 sources) cefaclor Drug Allergy 7 [facility] (2 sources) DULoxetine Drug Allergy 7 [facility] (1 source) OXcarbazepine Drug Allergy 7 [facility] Repository (1 source) bee venom Drug allergy (disorder) 7 [facility] Repository (20 sources) Bee pollen; Translations: [BEE POLLEN] Allergy to substance 3 Unknown [facility] Work Phone: (20 sources) Carbamazepine; Translations: [CARBAMAZEPINE] Allergy to substance 3 Unknown [facility] Healthcare (2 sources) buPROPion; Translations: [BUPROPION HCL] Drug Allergy 4 [facility] Repository (20 sources) Cefaclor; Translations: [CEFACLOR] Drug Allergy 4 Hives [facility] (20 sources) DULoxetine; Translations: [DULOXETINE] Drug Allergy 4 Unknown, Other (See Comments) [facility] Repository (20 sources) OXcarbazepine; Translations: [OXCARBAZEPINE] Drug Allergy 4 Other (See Comments) [facility] Repository (20 sources) buPROPion Drug Allergy 4 [facility] Healthcare (20 sources) DULoxetine Drug Allergy 4 [facility] Healthcare (1 source) Bee pollen Drug Allergy 3 Swelling [facility] ([facility] source) carBAMazepine Drug Allergy 3 Other (See Comments) [facility] Medications Current Medications Medication Drug Class(es) Dates Sig (Normalized) Sig (Original) acetaminophen 500 mg oral tablet (20 sources) take 1 tablet by mouth every six hours as needed for pain acetaminophen (Tylenol Extra Strength) 500 MG tablet Take 500 mg by mouth every 6 (six) hours if needed for mild pain Active acetaminophen 325 mg / HYDROcodone bitartrate 10 mg oral tablet (20 sources) Opioid Agonist Start: 11-25-2024 End: 01-06-2025 take 2 tablets by mouth every six hours for pain HYDROcodone-acetami nophen (Fertile) 10-325 MG tablet Indications: Degenerative disc disease at L5-S1 level Take 2 tablets by mouth every 6 (six) hours if needed for severe pain for up to 15 days 120 tablet 12/22/2024 01/06/2025 Active Start: 10-26-2024 End: 11-10-2024 take 2 tablets by mouth every six hours for pain HYDROcodone-acetaminophen (Fertile) 10-325 MG tablet Indications: Degenerative disc disease at L5-S1 level Take 2 tablets by mouth every 6 (six) hours if needed for severe pain for up to 15 days 120 tablet 10/26/2024 11/10/2024 Active Start: 05-25-2024 End: 10-07-2024 take 2 tablets by mouth every six hours for pain HYDROcodone-acetaminophen (Fertile) 10-325 MG tablet Indications: Degenerative disc disease at L5-S1 level Take 2 tablets by mouth every 6 (six) hours if needed for severe pain 120 tablet 07/05/2024 Active Start: 02-23-2024 take 2 tablets by mo uth every six hours as needed HYDROcodone-acetaminophen (NORCO) 10-325 mg per tablet Take 2 tablets by mouth every 6 (six) hours as needed. 02/23/2024 Active Start: 08-08-2023 take 2 tablets by mo uth every six hours for pain HYDROcodone-acetaminophen (Fertile) 10-325 MG tablet Indications: Degenerative disc disease at L5-S1 level Take 2 tablets by mouth every 6 (six) hours if needed for severe pain. 120 tablet 0 08/08/2023 Active [id number] actuat albuterol 0.09 mg/actuat metered dose inhaler (20 sources) beta2-Adrenergic Agonist Start: 07-28-2024 take 2 puff(s) by inhalation every four hours for wheezing albuterol HFA 90 mcg/act inhaler Indications: Chronic obstructive pulmonary disease, unspecified COPD type (CMS/HCC) Inhale 2 puffs every 4 (four) hours if needed for wheezing 18 g 11 07/28/2024 Active Start: 03-30-2024 take 2 puff(s) by in halation every four hours for wheezing albuterol HFA 90 mcg/act inhaler Indications: Chronic obstructive pulmonary disease, unspecified COPD type (CMS/HCC) Inhale 2 puffs every 4 (four) hours if needed for wheezing 18 g 10 03/30/2024 Active Start: 03-04-2024 take 2 puff(s) by in halation four times daily albuterol (PROVENTIL HFA;VENTOLIN HFA) 90 mcg/actuation inhaler Inhale 2 puffs 4 (four) times a day. 03/04/2024 Active Start: 08-07-2023 take 2 puff(s) by in halation every four hours for wheezing albuterol HFA 90 mcg/act inhaler Indications: Chronic obstructive pulmonary disease, unspecified COPD type (CMS/HCC) Inhale 2 puffs every 4 (four) hours if needed for wheezing or shortness of breath. 54 g 3 08/07/2023 Active ARIPiprazole 2 mg oral tablet (20 sources) Atypical Antipsychotic Start: 07-24-2023 take 1 tablet by mouth once daily ARIPiprazole (Abilify) 2 MG tablet Indications: Major depressive disorder with single episode, remission status unspecified (CMS/HCC) Take 1 tablet (2 mg) by mouth Daily 100 tablet 3 01/31/2024 Active Blood Glucose Monitoring Suppl (FreeStyle Lite) w/Device kit (20 sources) Start: 05-16-2022 Blood Glucose Monitoring Suppl (FreeStyle Lite) w/Device kit 1 Units in the morning and at noon. 05/16/2022 Active Start: 05-16-2022 Blood Glucose Monitoring Suppl (FreeStyle Lite) w/Device kit 1 Units in the morning and at noon. 0 05/16/2022 Active 120 actuat budesonide 0.16 mg/actuat / formoterol fumarate 0.0048 mg/actuat / glycopyrrolate 0.009 mg/actuat metered dose inhaler (4 sources) Corticosteroid, beta2-Adrenergic Agonist Start: 12-14-2024 take 2 puff(s) by inhalation in the morning Vwarghv-Przqmygpbzc-Gggzovitwg (Breztri Aerosphere) 160-9-4.8 MCG/ACT aerosol Indications: Panlobular emphysema (CMS/HCC) , Simple chronic bronchitis (CMS/HCC) Inhale 2 puffs in the morning and 2 puffs before bedtime. 10.7 g 5 12/14/2024 Active diphenhydrAMINE hydrochloride 25 mg oral capsule (20 sources) Histamine-1 Receptor Antagonist take 1 capsule by mouth at bedtime diphenhydrAMINE (BENADryl) 25 MG capsule Take 25 mg by mouth at bedtime Active [id number] 0.15 ml EPINEPHrine 1 mg/ml auto-injector (20 sources) alpha-Adrenergic Agonist, beta-Adrenergic Agonist, Catecholamine Start: 12-13-2024 EPINEPHrine (AUVI-Q) 0.15 mg/0.15 mL IJ solution auto-injector injection Indications: Bee sting allergy Inject 0.3 mL (0.3 mg) into the shoulder, thigh, or buttocks if needed for anaphylaxis 12/13/2024 Active Start: 07-24-2023 EPINEPHrine (A UVI-Q) 0.15 mg/0.15 mL IJ solution auto- injector injection Indications: Bee sting allergy Inject 0.15 mL (0.15 mg) into the shoulder, thigh, or buttocks if needed for anaphylaxis. 3 each 1 07/24/2023 Active fluticasone propionate 0.05 mg/actuat metered dose nasal spray (20 sources) Corticosteroid Start: 07-26-2024 take 2 spray(s) nasal route once daily fluticasone (Flonase) 50 MCG/ACT nasal spray Indications: Allergic rhinitis, unspecified seasonality, unspecified trigger Administer 2 sprays into each nostril Daily 16 g 5 07/26/2024 Active Start: 07-24-2023 End: 07-26-2024 take 2 spray(s) nasal route in the morning fluticasone (Flonase) 50 MCG/ACT nasal spray Indications: Allergic rhinitis, unspecified seasonality, unspecified trigger Administer 2 sprays into each nostril in the morning. 48 g 3 07/24/2023 07/26/2024 Discontinued Start: 07-24-2023 take 2 spray(s) nasa l route in the morning fluticasone propionate (FLONASE) 50 mcg/actuation nasal spray Administer 2 sprays into each nostril in the morning. 07/24/2023 Active furosemide 20 mg oral tablet (20 sources) Loop Diuretic Start: 10-30-2023 take 1 tablet by mouth once daily furosemide (Lasix) 20 MG tablet Take 20 mg by mouth Daily 10/30/2023 Active isopropyl alcohol 0.7 ml/ml medicated pad (20 sources) Alcohol Swabs (Alcohol Prep) pads Apply 1 Pad topically every 12 (twelve) hours. Active lisinopril 20 mg oral tablet (20 sources) Angiotensin Converting Enzyme Inhibitor Start: 11-12-2024 take 1 tablet by mouth before mealtime lisinopril 20 MG tablet Indications: Primary hypertension (CMS/HCC) TAKE 1 TABLET (20MG) BY MOUTH AT NOON BEFORE A MEAL 30 tablet 10 11/12/2024 Active Start: 11-11-2023 take 1 tablet by natalie th before mealtime lisinopril 20 MG tablet Indications: Primary hypertension (CMS/HCC) Take 1 tablet (20 mg) by mouth at noon. Take before meals 100 tablet 3 11/11/2023 Active naloxone hydrochloride 40 mg/ml nasal spray (20 sources) Opioid Antagonist Start: 02-23-2024 End: 02-22-2025 naloxone (Narcan) 4 mg/0.1 mL nasal spray Indications: Degenerative disc disease at L5-S1 level Administer 1 spray (4 mg) into affected nostril(s) if needed for opioid reversal May repeat every 2-3 minutes if needed, alternating nostrils, until medical assistance becomes available. 2 each 02/23/2024 02/22/2025 Active nicotine 4 mg chewing gum (20 sources) Cholinergic Nicotinic Agonist Start: 03-25-2023 nicotine [...] pantoprazole 40 mg delayed release oral tablet (20 sources) Proton Pump Inhibitor Start: 03-02-2024 take 1 tablet by mouth once daily in the morning pantoprazole (ProtoNix) 40 MG EC tablet Indications: Gastro-esophageal reflux disease without esophagitis TAKE 1 TABLET BY MOUTH EVERY MORNING 30 tablet 10 03/02/2024 Active Start: 07-24-2023 take 1 tablet by natalie th in the morning pantoprazole (ProtoNix) 40 MG EC tablet Indications: Gastro-esophageal reflux disease without esophagitis Take 1 tablet (40 mg) by mouth in the morning. 100 tablet 3 07/24/2023 Active PHENobarbital 32 mg oral tablet (20 sources) Start: 05-25-2024 End: 12-13-2024 take 1 tablet by mouth three times daily at bedtime PHENobarbital (Luminal) 32.4 MG tablet Indications: Localization-related epilepsy (CMS/HCC) TAKE 1 TABLET BY MOUTH THREE TIMES DAILY (IN THE MORNING, IN THE EVENING, and BEFORE bedtime) 90 tablet 5 12/13/2024 Active Start: 02-06-2024 PHENobarbitaL (LUMINAL) 32.4 mg tablet 1 tablet (32.4 mg total) 3 (three) times a day. 02/06/2024 Active Start: 10-28-2023 take 1 tablet by natalie th in the morning, then take 1 tablet [...] sodium 100 mg extended release oral capsule (20 sources) Anti-epileptic Agent Start: 07-24-2023 End: 07-26-2024 take 1 capsule by mouth in the morning, then take 1 capsule by mouth in the evening, then take 1 capsule by mouth at bedtime phenytoin ER (Dilantin) 100 MG capsule Indications: Localization-related epilepsy (CMS/HCC) Take 1 capsule (100 mg) by mouth in the morning and 1 capsule (100 mg) in the evening and 1 capsule (100 mg) before bedtime. 90 capsule 5 07/26/2024 Active pregabalin 150 mg oral capsule (20 sources) Start: 03-22-2024 End: 12-20-2024 take 1 capsule by mouth in the morning, then take 1 capsule by mouth in the evening, then take 1 capsule by mouth at bedtime pregabalin (Lyrica) 150 MG capsule Indications: Degenerative disc disease at L5-S1 level Take 1 capsule (150 mg) by mouth in the morning and 1 capsule (150 mg) in the evening and 1 capsule (150 mg) before bedtime. 90 capsule 12/20/2024 Active Start: 01-30-2024 take 1 capsule by mo uth three times daily pregabalin (LYRICA) 150 mg capsule Take 1 capsule (150 mg total) by mouth 3 (three) times a day. 01/30/2024 Active Start: 03-06-2023 take 1 capsule by mo uth in the morning, then take 1 capsule by mouth in the evening, then take 1 capsule by mouth at bedtime pregabalin (Lyrica) 150 MG capsule Take 150 mg by mouth in the morning and 150 mg in the evening and 150 mg before bedtime. 0 03/06/2023 Active primidone 50 mg oral tablet (20 sources) Anti-epileptic Agent Start: 07-07-2024 primidone (Mysoline) 50 MG tablet Indications: Essential tremor Take 2 tablets in the am, 1 tablet in the afternoon, and 2 tablets at bedtime 150 tablet 5 07/07/2024 Active Start: 06-08-2024 End: 07-08-2024 take 1 tablet by mouth five times daily primidone (Mysoline) 50 MG tablet Indications: Essential tremor TAKE 1 TABLET BY MOUTH 5 TIMES A DAY 150 tablet 10 07/02/2024 07/07/2024 Discontinued (Reorder) Start: 07-24-2023 take 1 tablet by natalie in the morning primidone (Mysoline) 50 MG tablet Indications: Essential tremor Take 1 tablet (50 mg) by mouth in the morning and 1 tablet (50 mg) before bedtime. 400 tablet 3 07/24/2023 Active sildenafil 50 mg oral tablet (20 sources) Phosphodiesterase 5 Inhibitor Start: 05-25-2024 take 1 tablet by mouth once daily as needed sildenafil (Viagra) 50 MG tablet Indications: Erectile dysfunction, unspecified erectile dysfunction type Take 1 tablet (50 mg) by mouth Daily as needed for erectile dysfunction 8 tablet 2 05/25/2024 Active Start: 11-11-2023 End: 12-11-2023 take 1 tablet by mouth once daily as needed sildenafil (Viagra) 25 MG tablet Indications: Erectile dysfunction, unspecified erectile dysfunction type Take 1 tablet (25 mg) by mouth Daily as needed for erectile dysfunction 20 tablet 0 11/11/2023 12/11/2023 Active simvastatin 40 mg oral tablet (20 sources) HMG-CoA Reductase Inhibitor Start: 11-12-2024 take 1 tablet by mouth in the morning simvastatin (Zocor) 40 MG tablet Indications: Mixed hyperlipidemia (CMS/HCC) , Hypertension, unspecified type (CMS/HCC) TAKE 1 TABLET BY MOUTH IN THE MORNING 30 tablet 10 11/12/2024 Active Start: 11-11-2023 take 1 tablet by natalie th in the morning simvastatin (Zocor) 40 MG tablet Indications: Mixed hyperlipidemia (CMS/HCC) , Hypertension, unspecified type (CMS/HCC) Take 1 tablet (40 mg) by mouth in the morning. 100 tablet 3 11/11/2023 Active tamsulosin hydrochloride 0.4 mg oral capsule (20 sources) alpha-Adrenergic Jeanine Start: 06-01-2024 take 1 capsule by mouth once daily in the morning tamsulosin (Flomax) 0.4 MG 24 hr capsule Indications: Benign localized prostatic hyperplasia with lower urinary tract symptoms (LUTS) TAKE 1 CAPSULE BY MOUTH EVERY MORNING 30 capsule 10 06/01/2024 Active Start: 08-28-2023 take 1 capsule by mo uth in the morning tamsulosin (FLOMAX) 0.4 mg capsule Take 1 capsule (0.4 mg total) by mouth in the morning. 08/28/2023 Active Start: 08-28-2023 take 1 tablet by natalie th once daily tamsulosin (Flomax) 0.4 MG 24 hr capsule Indications: Benign localized prostatic hyperplasia with lower urinary tract symptoms (LUTS) take 1 tablet by mouth once daily 100 capsule 3 08/28/2023 Active tiZANidine 4 mg oral tablet (20 sources) Central alpha-2 Adrenergic Agonist Start: 12-02-2024 take 2 tablets by mouth every eight hours as needed for muscle spasms tiZANidine (Zanaflex) 4 MG tablet Indications: Right lumbar radiculopathy TAKE 2 TABLETS BY MOUTH EVERY 8 HOURS NEEDED FOR MUSCLE SPASMS 60 tablet 10 12/02/2024 Active Start: 10-29-2024 take 2 tablets by mo uth every eight hours for muscle spasms tiZANidine (Zanaflex) 4 MG tablet Indications: Right lumbar radiculopathy Take 2 tablets (8 mg) by mouth every 8 (eight) hours if needed for muscle spasms 180 tablet 1 10/29/2024 Active Start: 10-01-2024 take 2 tablets by mo [facility] every eight hours as needed for muscle spasms tiZANidine (Zanaflex) 4 MG tablet Indications: Right lumbar radiculopathy TAKE 2 TABLETS BY MOUTH EVERY 8 HOURS NEEDED FOR MUSCLE SPASMS 60 tablet 10 10/01/2024 Active Start: 04-07-2024 End: 07-05-2024 take 2 tablets by mouth every eight hours as needed for muscle spasms and muscle spasms, then take 2 tablets by mouth every eight hours as needed for muscle spasms and muscle spasms tiZANidine (Zanaflex) 4 MG tablet Indications: Right lumbar radiculopathy Take 2 tablets (8 mg) by mouth every 8 (eight) hours if needed for muscle spasms TAKE 2 TABLETS BY MOUTH EVERY 8 HOURS NEEDED FOR MUSCLE SPASMS 60 tablet 2 07/05/2024 Active Start: 02-29-2024 [facility] tiZ[facility]idine (ZANAFLEX) 4 mg tablet Take 1 tablet (4 mg total) by mouth 3 (three) times a day. 02/29/2024 Active Start: 11-17-2023 take 2 tablets by mo [place] every eight hours for muscle spasms tiZANidine (Zanaflex) 4 MG tablet Indications: Right lumbar radiculopathy take 2 tablets by mouth every 8 hours if needed for muscle spasm 60 tablet 0 11/17/2023 Active 24 hr venlafaxine 150 mg extended release oral capsule (20 sources) Serotonin and Norepinephrine Reuptake Inhibitor Start: 07-28-2024 take 1 capsule by mouth once daily venlafaxine XR (Effexor XR) 150 MG 24 hr capsule Indications: Depressive disorder (CMS/HCC) Take 1 capsule (150 mg) by mouth Daily Do not crush or chew. 100 capsule 3 07/28/2024 Active Start: 02-05-2024 take 1 capsule by mo uth once daily venlafaxine XR (Effexor XR) 150 MG 24 hr capsule Indications: Depressive disorder (CMS/HCC) TAKE 1 CAPSULE BY MOUTH ONCE DAILY *EMERGENCY REFILL* 100 capsule 3 02/05/2024 Active Start: 10-10-2023 End: 07-26-2024 take 1 capsule by mouth once daily venlafaxine XR (Effexor XR) 75 MG 24 hr capsule Indications: Depressive disorder (CMS/HCC) Take 1 capsule (75 mg) by mouth Daily 100 capsule 3 07/26/2024 Active Start: 07-24-2023 take 1 capsule by mo uth every twenty-four hours in the morning venlafaxine XR (Effexor XR) 150 MG 24 hr capsule Indications: Depressive disorder (CMS/HCC) Take 1 capsule (150 mg) by mouth in the morning. 100 capsule 3 07/24/2023 Active take 1 capsule by mo uth every twenty-four hours in the morning venlafaxine XR (EFFEXOR XR) 75 mg 24 hr capsule Take 1 capsule (75 mg total) by mouth in the morning. Active Completed/Discontinued Medications Medication Drug Class(es) Dates Sig (Normalized) Sig (Original) bupivacaine hydrochloride 2.5 mg/ml injectable solution (8 sources) Amide Local Anesthetic Start: 10-26-2024 End: 10-26-2024 bupivacaine (Marcaine) 0.25 % injection 2.5 mg Start: 10-26-2024 End: 10-26-2024 2.5 mg (1 mL), Injection, On ce, On Fri10/26/24 at 1515, For 1 dose Start: 10-26-2024 End: 10-26-2024 bupivacaine (Marcaine) 0.25 % injection 2.5 mg Start: 10-26-2024 End: 10-26-2024 2.5 mg (1 mL), Injection, On ce, On Fri10/26/24 at 1515, For 1 dose Start: 08-03-2024 End: 08-03-2024 bupivacaine (Marcaine) 0.25 % injection 2.5 mg Start: 08-03-2024 End: 08-03-2024 2.5 mg (1 mL), Injection, On ce, On Fri08/03/24 at 1400, For 1 dose Start: 08-03-2024 End: 08-03-2024 bupivacaine (Marcaine) 0.25 % injection 2.5 mg Start: 08-03-2024 End: 08-03-2024 2.5 mg (1 mL), Injection, On ce, On Fri08/03/24 at 1400, For 1 dose dexamethasone phosphate 10 mg/ml injectable solution (8 sources) Corticosteroid Start: 10-26-2024 End: 10-26-2024 dexAMETHasone sod phos (Decadron) injection 10 mg Start: 10-26-2024 End: 10-26-2024 10 mg (1 mL), Injection, Onc e, On Fri10/26/24 at 1515, For 1 dose Start: 10-26-2024 End: 10-26-2024 dexAMETHasone sod phos (Deca dron) injection 10 mg Start: 10-26-2024 End: 10-26-2024 10 mg (1 mL), Injection, Onc e, On Fri10/26/24 at 1515, For 1 dose Start: 08-03-2024 End: 08-03-2024 dexAMETHasone sod phos (Deca dron) injection 10 mg Start: 08-03-2024 End: 08-03-2024 10 mg (1 mL), Injection, Onc e, On Fri08/03/24 at 1400, For 1 dose Start: 08-03-2024 End: 08-03-2024 dexAMETHasone sod phos (Deca dron) injection 10 mg Start: 08-03-2024 End: 08-03-2024 10 mg (1 mL), Injection, Onc e, On Fri08/03/24 at 1400, For 1 dose iohexol (OMNIPaque) 300 MG/M L injection 2 mL (8 sources) Start: 10-26-2024 End: 10-26-2024 iohexol (OMNIPaque) 300 MG/M L injection 2 mL Start: 10-26-2024 End: 10-26-2024 2 mL, Injection, Once in elijah ging, Starting on Fri10/26/24 at 1507, For 1 dose Start: 08-03-2024 End: 08-03-2024 iohexol (OMNIPaque) 300 MG/M L injection 2 mL Start: 08-03-2024 End: 08-03-2024 2 mL, Injection, Once in elijah ging, Starting on Fri08/03/24 at 1354, For 1 dose peg 3350-sod sulf,chlr-pot-m ag 178.7-7.3-0.5 gram recon soln (1 source) Start: 03-10-2024 End: 03-11-2024 peg 3350-sod sulf,chlr-pot-m ag 178.7-7.3-0.5 gram recon soln Indications: Rectal bleeding Take 1 kit by mouth in the morning for 1 dose. Please see instructional sheet given by Physicians office. 1 each 03/10/2024 03/11/2024 Problems Active Problems Problem Classification Problem Date Documented Da te Episodic/Chronic Blindness and vision defects (20 sources) Visual impairment; Translations: [Unspecified visual loss] Onset: 3 03-24-2023 Chronic Chronic obstructive pulmonary disease and bronchiectasis (20 sources) Chronic obstructive pulmonary disease, unspecified; Translations: [Chronic obstructive lung disease] Onset: 7 03-24-2023 Chronic Diabetes mellitus with complications (20 sources) Peripheral neuropathy due to type 2 diabetes mellitus; Translations: [Type 2 diabetes mellitus with diabetic polyneuropathy] Onset: 3 Resolved: 3 10-31-2023 Chronic Diabetes mellitus without complication (1 source) Type 2 diabetes mellitus without complications; Translations: [TYPE 2 DIABETES MELLITUS WITHOUT COMPLICATIONS] Onset: Chronic Disorders of lipid metabolism (20 sources) Mixed hyperlipidemia; Translations: [Mixed hyperlipidemia] Onset: 3 03-24-2023 Chronic Epilepsy; convulsions (20 sources) Epilepsy, unspecified, not intractable, without status epilepticus; Translations: [Localization-related epilepsy] Onset: 7 03-24-2023 Chronic Esophageal disorders (20 sources) Gastroesophageal reflux disease without esophagitis; Translations: [Gastro-esophageal reflux disease without esophagitis] Onset: 3 03-24-2023 Chronic Essential hypertension (20 sources) Hypertensive disorder; Translations: [Essential (primary) hypertension] Onset: [...] IN UNSP NON-INSTITUT (PRIVATE) RESIDENCE PLACE] Onset: Gastrointestinal hemorrhage (2 sources) Hemorrhage of anus and rectum; Translations: [Rectal hemorrhage] Onset: 4 03-10-2024 Episodic Headache; including migraine (20 sources) Migraine; Translations: [Migraine, unspecified, not intractable, without status migrainosus] Onset: 3 Resolved: 4 03-24-2023 Chronic Hyperplasia of prostate (20 sources) Benign prostatic hypertrophy with outflow obstruction; Translations: [Benign prostatic hyperplasia with lower urinary tract symptoms] Onset: 3 03-24-2023 Chronic Immunizations and screening for infectious disease (4 sources) Patient encounter status; Translations: [Encounter for immunization] 08-31-2024 Episodic Mood disorders (20 sources) Depressive disorder; Translations: [Depressive disorder] Onset: 3 03-24-2023 Chronic Osteoarthritis (20 sources) Degenerative joint disease involving multiple joints; Translations: [Polyosteoarthritis, unspecified] Onset: 3 03-24-2023 Chronic Other aftercare (4 sources) Polypharmacy ; Translations: [Other halfway (current) drug therapy] 07-07-2024 Episodic Other ear and sense organ disorders (20 sources) Chronic otitis externa of left external auditory canal; Translations: [Unspecified chronic otitis externa, left ear] Onset: 3 03-24-2023 Chronic Other hereditary and degenerative nervous system conditions (20 sources) Essential tremor; Translations: [Essential tremor] Onset: 3 03-24-2023 Chronic Other nervous system disorders (1 source) Other chronic pain; Translations: [OTHER CHRONIC PAIN] Onset: 7 Chronic Other nervous system disorders (20 sources) Polyneuropathy; Translations: [Polyneuropathy, unspecified] Onset: 3 03-24-2023 Chronic Other non-traumatic joint disorders (4 sources) Pain in right ankle and joints of right foot; Translations: [PAIN IN RIGHT ANKLE] Onset: 3 Episodic Other upper respiratory disease (1 source) Allergic rhinitis; Translations: [Allergic rhinitis, unspecified] 07-26-2024 Chronic Residual codes; unclassified (1 source) Tobacco use; Translations: [Tobacco use] Onset: 4 Episodic Spondylosis; intervertebral disc disorders; other back problems (20 sources) Other spondylosis, cervical region; Translations: [Degeneration of lumbosacral intervertebral disc] Onset: 7 03-24-2023 Chronic Substance-related disorders (20 sources) Nicotine dependence, cigarettes, uncomplicated; Translations: [Tobacco dependence caused by cigarettes] Onset: 7 03-24-2023 Chronic Unclassified (2 sources) Unknown / UNK(Unknown) Onset: Unclassified (1 source) GI Bleeding Onset: 4 Past or Other Problems Problem Classification Problem Date Documented Date Episodic/Chronic Abdominal hernia (20 sources) Hiatal hernia; Translations: [Diaphragmatic hernia without obstruction or gangrene] Onset: 03-24-2023 03-24-2023 Episodic Allergic reactions (20 sources) Allergy status to other anti-infective agents status; Translations: [Hand eczema] Onset: 06-08-2017 03-24-2023 Episodic Diabetes mellitus without complication (20 sources) Impaired glucose tolerance; Translations: [Impaired glucose tolerance (oral)] Onset: 03-24-2023 03-24-2023 Episodic Fluid and electrolyte disorders (20 sources) Hyponatremia; Translations: [Hypo-osmolality and hyponatremia] Onset: 03-24-2023 03-24-2023 Episodic Headache; including migraine (20 sources) Headache; Translations: [Headache] Onset: 03-15-2024 Resolved: 08-31-2024 03-15-2024 Episodic Hemorrhoids (20 sources) External hemorrhoids; Translations: [Residual hemorrhoidal skin tags] Onset: 03-24-2023 03-24-2023 Episodic Mycoses (1 source) Onychomycosis; Translations: [Tinea unguium] 07-01-2024 Episodic Other and unspecified benign neoplasm (20 sources) Adenomatous polyp of colon ; Translations: [Benign neoplasm of colon, unspecified] Onset: 03-24-2023 03-24-2023 Episodic Other connective tissue disease (20 sources) Recurrent falls ; Translations: [Repeated falls] Onset: 03-24-2023 03-24-2023 Episodic Other connective tissue disease (1 source) Pain of toes of bilateral feet; Translations: [Pain in right toe(s)] 07-01-2024 Episodic Other ear and sense organ disorders (20 sources) Otitis externa; Translations: [Unspecified otitis externa, unspecified [...] Onset: 06-08-2017 Episodic Other nervous system disorders (20 sources) Abnormal gait; Translations: [Unspecified abnormalities of gait and mobility] Onset: 03-24-2023 03-24-2023 Episodic Other nervous system disorders (20 sources) Impairment of balance; Translations: [Other abnormalities of gait and mobility] Onset: 03-24-2023 03-24-2023 Episodic Other nervous system disorders (20 sources) Tremor; Translations: [Tremor, unspecified] Onset: 03-15-2024 03-15-2024 Episodic Other upper respiratory infections (20 sources) Recurrent acute sinusitis; Translations: [Acute recurrent sinusitis, unspecified] Onset: 03-24-2023 03-24-2023 Episodic Residual codes; unclassified (1 source) Tobacco user; Translations: [Tobacco use] 03-10-2024 Episodic Spondylosis; intervertebral disc disorders; other back problems (20 sources) Dorsalgia, unspecified; Translations: [Lumbosacral neuritis] Onset: 06-08-2017 Resolved: 08-31-2024 03-24-2023 Episodic Results Test Name Value Interpretation [...] ALEXX MARIE Date: 2023-02-06 13:52 Normal [facility] Discharge Summaryon 06-10-20 Discharge Summary MR[id number] Admitted: 06/08/2017 Discharged: 06/09/2017 Date of : 1955 Physician: Heydi Walls M.D. DISCHARGE SUMMARYDISCHARGE ATTENDING: Dr. Walls.PRINCIPAL DIAGNOSIS: Neck injury following a fall on railing.SECONDARY DIAGNOSES: Chronic obstructive pulmonary disease, epilepsy, andtype 2 diabetes.PROCEDURES PERFORMED AND TREATMENT RENDERED: CTC, CT neck, x-ray ofabdomen and pelvis [facility] revealed cervical spondylosis with multi-facet DJD,otherwise no acute injuries. CT neck shows some right subcu emphysema inthe prevertebral tissue from the skull base to the superior mediastinum.X-ray of the pelvis and hip were negative. Esophagram was done at [facility] torule out esophageal rupture. Esophagram came back negative. The patientwas started on normal diet and home medications were resumed. Thepatient's condition at discharge was stable. The patient was seen by PTand OT, which recommended home PT, otherwise the [facility] by [facility] services. The patient was discharged [...] personal documentation from me. Date Dict: 06/09/2017/04:39 P/Master Cook, WYATTate Trans: 06/10/2017 02:22 A/mmoDN_JN:[id number] cc: Mitul Richmond M.D. 3 [facility] [address] Normal [facility] CBC W/DIFFon 06-09-2017 Basophils Auto #/vol (Bld) 1.0 % Normal 0.0-2.0 [facility] Comment on above: Order Comment: No: D o not add to previous draw Performed By: #### 5 0103 ####[facility] [place] [address], [facility] Eosinophils/100 leukocytes 3.7 % Normal 0.0-5.0 [facility] Comment on above: Order Comment: No: D o not add to previous draw Performed By: #### 5 0103 ####[facility] [place] [address], [facility] Erythrocyte distribution width Auto Ratio (RBC) 16.0 % Normal 11.5-16.9 [facility] Comment on above: Order Comment: No: D o not add to previous draw Performed By: #### 5 0103 ####[facility] [place] [address], [facility] Erythrocytes (RBC) 4.80 mill/mm3 Normal 4.30-5.90 [facility] Comment on above: Order Comment: No: D o not add to previous draw Performed By: #### 5 0103 ####[facility] [place] [address], [facility] Hematocrit (HCT) 45.6 % Normal 39.0-55.0 [facility] Comment on above: Order Comment: No: D o not add to previous draw Performed By: #### 5 0103 ####[facility] [place] [address], [facility] Hemoglobin mass conc (Bld) 15.3 g/dL Normal 13.9-16.3 [facility] Comment on above: Order Comment: No: D o not add to previous draw Performed By: #### 5 0103 ####[facility] [place] [address], [facility] Lymphocytes/100 leukocytes 28.3 % Normal 20.0-40.0 [facility] Comment on above: Order Comment: No: D o not add to previous draw Performed By: #### 5 0103 ####[facility] MCH 31.9 pg Normal 24.0-32.0 [facility] Comment on above: Order Comment: No: D o not add to previous draw Performed By: #### 5 0103 ####[facility] MCHC mass conc (RBC) 33.6 g/dL Normal 32.0-36.0 [facility] Comment on above: Order Comment: No: D o not add to previous draw Performed By: #### 5 0103 ####[facility] [facility] [place] [address], [facility] MCV 95.1 fL Normal 80.0-100.0 [facility] Comment on above: Order Comment: No: D o not add to previous draw Performed By: #### 5 0103 ####[facility] [place] [address], [facility] METHOD Normal [facility] Comment on above: Order Comment: No: D o not add to previous draw Result Comment: Auto mated differential performedNormal RBC Morphology Performed By: #### 5 0103 ####[facility] [place] [address], [facility] MONOS 8.4 % High 2-8 [facility] Comment on above: Order Comment: No: D o not add to previous draw Performed By: #### 5 0103 ####[facility] [place] [address], [facility] Neutrophils/100 leukocytes 58.6 % Normal 50-70 [facility] Comment on above: Order Comment: No: D o not add to previous draw Performed By: #### 5 0103 ####[facility] [place] [address], [facility] PLAT CNT 144 Thou/mm3 Normal 100-400 [facility] Comment on above: Order Comment: No: D o not add to previous draw Performed By: #### 5 0103 ####[facility] WBC (Leukocytes) 5.4 Thou/mm3 Normal 4.0-10.0 [facility] Comment on above: Order Comment: No: D o not add to previous draw Performed By: #### 5 0103 ####[facility] COMP METABOLIC PANELon 06-09 Alanine aminotransferase (ALT) 20 U/L Normal 7-52 [facility] Comment on above: Order Comment: No: D o not add to previous draw Performed By: #### 4 1000, 66079, 15504 ####[facility] [facility] Albumin 3.6 g/dL Normal 3.5-5.7 [facility] Comment on above: Order Comment: No: D o not add to previous draw Performed By: #### 4 1000, 44039, 69524 ####[facility] [place] [address], [facility] ALKALINE PHOSPH 79 IU/L Normal 34-104 [facility] Comment on above: Order Comment: No: D o not add to previous draw Performed By: #### 4 1000, 90153, 62655 ####[facility] [place] [place] [address], [facility] Aspartate aminotransferase (AST) 21 U/L Normal 13-39 [facility] Comment on above: Order Comment: No: D o not add to previous draw Performed By: #### 4 1000, 20008, 83978 ####[facility] [place] [place] [address], [place] Bilirubin (total) 0.6 mg/dL Normal 0.3-1.0 [facility] Comment on above: Order Comment: No: D o not add to previous draw Performed By: #### 4 1000, 25710, 93297 ####[facility] [place] [place] [address], [facility] Calcium 8.5 mg/dL Low 8.6-10.3 [facility] Comment on above: Order Comment: No: D o not add to previous draw Performed By: #### 4 1000, 55833, 03459 ####[facility] [place] [place] [address], [place] Chloride 105 mmol/L Normal 98-107 [facility] Comment on above: Order Comment: No: D o not add to previous draw Performed By: #### 4 1000, 60723, 60845 ####[facility] [place] [place] [address], [place] CO2 23 mmol/L Normal 21-31 [facility] Comment on above: Order Comment: No: D o not add to previous draw Performed By: #### 4 1000, 53405, 28015 ####[facility] [place] [place] [address], [place] Creatinine 0.69 mg/dL Low 0.70-1.30 [facility] Comment on above: Order Comment: No: D o not add to previous draw Performed By: #### 4 1000, 23856, 86333 ####[facility] [place] [place] [address], [place] eGFR (black) mL/min/{1.73_m2} Normal >60 [facility] Comment on above: Order Comment: No: D o not add to previous draw Performed By: #### 4 1000, 15466, 61898 ####[facility] eGFR (non-black) mL/min/{1.73_m2} Normal >60 [facility] Comment on above: Order Comment: No: D o not add to previous draw Performed By: #### 4 1000, 20616, 28574 ####[facility] Glucose mass conc 72 mg/dL Normal 70-100 [facility] Comment on above: Order Comment: No: D o not add to previous draw Performed By: #### 4 1000, 71266, 77078 ####[facility] Potassium molar conc 4.0 mmol/L Normal 3.5-5.1 [facility] Comment on above: Order Comment: No: D o not add to previous draw Performed By: #### 4 1000, 78702, 69716 ####[facility] [place] [address], [facility] Protein 5.8 g/dL Low 6.0-8.3 [facility] Comment on above: Order Comment: No: D o not add to previous draw Performed By: #### 4 1000, 23936, 95434 ####[facility] [place] [address], [facility] Sodium 135 mmol/L Low 136-145 [facility] Comment on above: Order Comment: No: D o not add to previous draw Performed By: #### 4 1000, 42806, 25413 ####[facility] [place] [address], [facility] Urea nitrogen 7 mg/dL Normal 7-25 [facility] Comment on above: Order Comment: No: D o not add to previous draw Performed By: #### 4 1000, 45640, 60136 ####[facility] [place] [address], [facility] LACTATE BLOODon 06-09-2017 Lactate 0.5 mmol/L Normal .5-2.2 [facility] Comment on above: Order Comment: No: D o not add to previous draw Performed By: #### 1 0054 ####[facility] [place] [address], [facility] MAGNESIUM BLOODon 06-09-2017 Magnesium 2.0 mg/dL Normal 1.9-2.7 [facility] Comment on above: Order Comment: No: D o not add to previous draw Performed By: #### 4 1000, 62844, 33809 ####[facility] [place] [address], [facility] PHOSPHORUS BLOODon 7 Phosphate 3.0 mg/dL Normal 2.5-5.0 [facility] Comment on above: Order Comment: No: D o not add to previous draw Performed By: #### 4 1000, 11347, 91003 ####[facility] [place] [address], [facility] BASIC METABOLIC PANELon 05-21 Calcium 8.7 mg/dL Normal 8.6-10.3 [facility] Comment on above: Order Comment: Yes: Add to Previous draw if able Performed By: #### 0 0071 ####[facility] [place] [address], [facility] Chloride 102 mmol/L Normal 98-107 [facility] Comment on above: Order Comment: Yes: Add to Previous draw if able Performed By: #### 0 0071 ####[facility] [place] [address], [facility] CO2 25 mmol/L Normal 21-31 [facility] Comment on above: Order Comment: Yes: Add to Previous draw if able Performed By: #### 0 0071 ####[facility] [facility].[address] Creatinine 0.73 mg/dL Normal 0.70-1.30 [facility] Comment on above: Order Comment: Yes: Add to Previous draw if able Performed By: #### 0 0071 ####[facility] [facility].[address] eGFR (black) mL/min/{1.73_m2} Normal >60 [facility] Comment on above: Order Comment: Yes: Add to Previous draw if able Performed By: #### 0 0071 ####[facility] [facility].[address] eGFR (non-black) mL/min/{1.73_m2} Normal >60 [facility] Comment on above: Order Comment: Yes: Add to Previous draw if able Performed By: #### 0 0071 ####[place] [id number] [facility].[address] Glucose mass conc 97 mg/dL Normal 70-100 [facility] Comment on above: Order Comment: Yes: Add to Previous draw if able Performed By: #### 0 0071 ####[facility] [place] [address].[place] [address], [facility] Potassium molar conc 3.9 mmol/L Normal 3.5-5.1 [facility] Comment on above: Order Comment: Yes: Add to Previous draw if able Performed By: #### 0 0071 ####[address] [place] [address], [facility] Sodium 133 mmol/L Low 136-145 [facility] Comment on above: Order Comment: Yes: Add to Previous draw if able Performed By: #### 0 0071 ####[facility] [facility].[address] Urea nitrogen 6 mg/dL Low 7-25 [facility] Comment on above: Order Comment: Yes: Add to Previous draw if able Performed By: #### 0 0071 ####[facility] [facility] CBC COMPLETE BLOOD COUNTon 06-08-2017 Erythrocyte distribution width Auto Ratio (RBC) 16.3 % Normal 11.5-16.9 [facility] Comment on above: Order Comment: Yes: Add to Previous draw if able Performed By: #### 5 0608 ####[address] Erythrocytes (RBC) 4.73 mill/mm3 Normal 4.30-5.90 [facility] Comment on above: Order Comment: Yes: Add to Previous draw if able Performed By: #### 5 0608 ####[facility] [place] [address].[address] Hematocrit (HCT) 45.0 % Normal 39.0-55.0 [facility] Comment on above: Order Comment: Yes: Add to Previous draw if able Performed By: #### 5 0608 ####[place] [address] [facility].[address] Hemoglobin mass conc (Bld) 15.4 g/dL Normal 13.9-16.3 [facility] Comment on above: Order Comment: Yes: Add to Previous draw if able Performed By: #### 5 0608 ####[facility] [facility].[address] MCH 32.5 pg High 24.0-32.0 [facility] Comment on above: Order Comment: Yes: Add to Previous draw if able Performed By: #### 5 0608 ####[facility] MCHC mass conc (RBC) 34.2 g/dL Normal 32.0-36.0 [facility] Comment on above: Order Comment: Yes: Add to Previous draw if able Performed By: #### 5 0608 ####[address] MCV 95.1 fL Normal 80.0-100.0 [facility] Comment on above: Order Comment: Yes: Add to Previous draw if able Performed By: #### 5 0608 ####[address] PLAT CNT 157 Thou/mm3 Normal 100-400 [facility] Comment on above: Order Comment: Yes: Add to Previous draw if able Performed By: #### 5 0608 ####[address] WBC (Leukocytes) 9.0 Thou/mm3 Normal 4.0-10.0 [facility] Comment on above: Order Comment: Yes: Add to Previous draw if able Performed By: #### 5 0608 ####[address] ESOPHAGRAMon 06-08-2017 ESOP[facility]AGRAM [facility] [place] [id number] P atient Name: DUTCH MONIQUE : 1955Sex: MAge: Race: WhiteMRN: [id number]. Location: [id number] Status: IVisit #: [id number] Date: 06/08/2017 3:35:00 PMCompleted Date: 06/08/2017 05:01 PMRequesting Provider: GUERITA HICKS Attending Provider: SHARON EPSTEIN Report Copy To: Signs & Symptoms: DysphagiaHistory: Patient history not availableComments: R/O PerforationExam: ESOPHAGRAMAccession #: [id number] ======ESOPHAGRAM 06/08/2017 5:01 PM EDT SIGNS AND [...] Electronically signed by:Dutch De Souza. Transcribed by: [email or web address], User Resident: ARCELIA COLINElectronically Signed by: DUTCH DE SOUZA @ 06/09/2017 07:05 AMI personally read this/these film(s) with this resident Normal [facility] Comment on above: Order Comment: R/O P erforation History and Physicalon 06-08 History and Physical [id number] Admitted: 06/08/2017 Date of : 1955 Attending Physician: Sharon Epstein MD Room #: [id number] Discharge Date: HISTORY AND PHYSICALCHIEF COMPLAINT: Neck [...] speaking/hoarseness.He eventually went and [facility], where a CT of the neck showed some prevertebral subcutaneousemphysema as well as a fracture of the right portion of the hyoid bone. [facility]was then [facility] for furtherevaluation in stable condition.PAST MEDICAL HISTORY: Type 2 diabetes mellitus, epilepsy, COPD/chronicbronchitis, and chronic back pain.PAST SURGICAL HISTORY: Back surgery, right knee ACL surgery,cholecystectomy, nose surgery, and teeth removal.FAMILY HISTORY: Noncontributory.SOCIAL HISTORY: One-half pack per day smoker for at least 14 years. Hehad quit before this time for 23 years, but smoked before then. No alcoholor drug use.MEDICATIONS: Fertile, tizanidine, phenytoin, primidone, Effexor XR, Zocor,lamotrigine, zolpidem, [...] respiratory rate 23, blood pressure 138/67, O2 [id number]% on room air.GENERAL: No acute distress. Hoarseness [...] his neck and now presents with increased zqgpydyu-cf-egxqsw painand hoarseness with imaging showing prevertebral subcutaneous [...] of his multiple chronic medical problems.Electronically Signed by:Sharon Epstein MD 07/01/2017 08:15 A Sharon Epstein MD I personally saw this patient on the day of the encounter, performed thekey portion(s) of the service and participated in the management andconfirm the resident's documentation. Please note there may be anadditional personal documentation from me. Date Dict: 06/08/2017/12:48 P/Rell Cuellar Trans: 06/08/2017 08:50 P/mmoDN_JN:[id number] Normal [facility] TOX PANEL URINEon 06-08-2017 50 THC Negative Normal NEGATIVE [facility] Comment on above: Order Comment: Yes: Add to Previous draw if able Performed By: #### 3 5939 ####[facility] [address], [facility] BARBITURATES Positive Abnormal NEGATIVE [facility] Comment on above: Order Comment: Yes: Add to Previous draw if able Performed By: #### 3 5249 ####[facility] [place] [place] [address], [place] MONO AMPHET Negative Normal NEGATIVE [facility] Comment on above: Order Comment: Yes: Add to Previous draw if able Performed By: #### 3 1079 ####[facility] [place] [place] [address], [facility] PROPOXYPHENE Negative Normal NEGATIVE [facility] Comment on above: Order Comment: Yes: Add to Previous draw if able Performed By: #### 3 1079 ####[facility] [place] [place] [address], [place] TRICYCLICS Negative Normal NEGATIVE [facility] Comment on above: Order Comment: Yes: Add to Previous draw if able Performed By: #### 3 1079 ####[facility] [place] [place] [address], [place] Urine, benzodiazepines presence Negative Normal NEGATIVE [facility] Comment on above: Order Comment: Yes: Add to Previous draw if able Performed By: #### 3 1079 ####[facility] [place] [place] [address], [place] Urine, cocaine presence Negative Normal NEGATIVE [facility] Comment on above: Order Comment: Yes: Add to Previous draw if able Performed By: #### 3 1079 ####[facility] [place] [place] [address], [place] Urine, methadone presence Negative Normal NEGATIVE [facility] Comment on above: Order Comment: Yes: Add to Previous draw if able Performed By: #### 3 1079 ####[facility] [place] [place] [address], [place] Urine, opiates presence Positive Abnormal NEGATIVE [facility] Comment on above: Order Comment: Yes: Add to Previous draw if able Performed By: #### 3 1079 ####[facility] [place] [place] [address], [place] Urine, phencyclidine presence Negative Normal NEGATIVE [facility] Comment on above: Order Comment: Yes: Add to Previous draw if able Performed By: #### 3 1079 ####[facility] Vital Signs Date Time Vital Sign Value Performing Clinician Leighann matias 12-14-2024 13:29-0500 Body height 175.3 cm America Hemmer PA Work Phone: [facility] 12-14-2024 13:29-0500 Body mass index (BMI) [Ratio] 22.68 kg/m2 America Hemmer PA Work Phone: [facility] 12-14-2024 13:29-0500 Body weight 69.67 kg America Hemmer PA Work Phone: [facility] 12-14-2024 13:29-0500 Diastolic blood pressure 70 mm[Hg] America Hemmer PA Work Phone: [facility] 12-14-2024 13:29-0500 Heart rate 71 /min America Hemmer PA Work Phone: [facility] 12-14-2024 13:29-0500 Respiratory rate 16 /min America Hemmer PA Work Phone: [facility] 12-14-2024 13:29-0500 SaO2% (BldA) [Mass fraction] 97 % America Hemmer PA Work Phone: [facility] 12-14-2024 13:29-0500 Systolic blood pressure 132 mm[Hg] America Hemmer PA Work Phone: [facility] 10-26-2024 12:54-0500 Diastolic blood pressure 78 mm[Hg] Christopher Melissa DO Work Phone: [facility] 10-26-2024 12:54-0500 Heart rate 81 /min Christopher Melissa DO Work Phone: [facility] 10-26-2024 12:54-0500 SaO2% (BldA) [Mass fraction] 96 % Christopher Melissa DO Work Phone: [facility] 10-26-2024 12:54-0500 Systolic blood pressure 148 mm[Hg] Christopher Melissa DO Work Phone: [facility] 09-28-2024 13:27-0500 Body mass index (BMI) [Ratio] 23.18 kg/m2 Maximo Nguyen WOOD MOLDER Work Phone: [facility] 09-28-2024 13:27-0500 Body weight 71.22 kg Maximo Nguyen WOOD MOLDER Work Phone: [facility] 09-28-2024 13:27-0500 Diastolic blood pressure 75 mm[Hg] Maximo Nguyen WOOD MOLDER Work Phone: [facility] 09-28-2024 13:27-0500 Heart rate 76 /min Maximo Nguyen WOOD MOLDER Work Phone: [facility] 09-28-2024 13:27-0500 Systolic blood pressure 143 mm[Hg] Maximo Nguyen WOOD MOLDER Work Phone: [facility] 08-31-2024 12:55-0500 Body height 175.3 cm America Hemmer PA Work Phone: [facility] 08-31-2024 12:55-0500 Body mass index (BMI) [Ratio] 22.59 kg/m2 America Hemmer PA Work Phone: [facility] 08-31-2024 12:55-0500 Body weight 69.4 kg America Hemmer PA Work Phone: [facility] 08-31-2024 12:55-0500 Diastolic blood pressure 72 mm[Hg] America Hemmer PA Work Phone: [facility] 08-31-2024 12:55-0500 Heart rate 62 /min America Hemmer PA Work Phone: [facility] 08-31-2024 12:55-0500 SaO2% (BldA) [Mass fraction] 99 % America Hemmer PA Work Phone: [facility] 08-31-2024 12:55-0500 Systolic blood pressure 134 mm[Hg] America Hemmer PA Work Phone: [facility] 08-03-2024 12:39-0400 Diastolic blood pressure 79 mm[Hg] Christopher Melissa DO Work Phone: [facility] 08-03-2024 12:39-0400 Heart rate 79 /min Christopher Melissa DO Work Phone: [facility] 08-03-2024 12:39-0400 SaO2% (BldA) [Mass fraction] 94 % Christopher Melissa DO Work Phone: [facility] 08-03-2024 12:39-0400 Systolic blood pressure 150 mm[Hg] Christopher Melissa DO Work Phone: [facility] 07-08-2024 14:19-0400 Body height 175.3 cm Frandy Avitia DPM Work Phone: [facility] 07-08-2024 14:19-0400 Body mass index (BMI) [Ratio] 22.45 kg/m2 Frandy Avitia DPM Work Phone: [facility] 07-08-2024 14:19-0400 Body weight 68.95 kg Frandy Avitia DPM Work Phone: [facility] 07-08-2024 14:19-0400 Diastolic blood pressure 82 mm[Hg] Frandy Avitia DPM Work Phone: [facility] 07-08-2024 14:19-0400 Heart rate 75 /min Frandy Avitia DPM Work Phone: [facility] 07-08-2024 14:19-0400 Respiratory rate 18 /min Frandy Avitia DPM Work Phone: [facility] 07-08-2024 14:19-0400 Systolic blood pressure 130 mm[Hg] Frandy Avitia DPM Work Phone: [facility] 07-07-2024 13:20-0400 Body mass index (BMI) [Ratio] 22.45 kg/m2 Maximo Nguyen NP Work Phone: [facility] 07-07-2024 13:20-0400 Body weight 68.95 kg Maximo Nguyen NP Work Phone: [facility] 07-07-2024 13:20-0400 Diastolic blood pressure 78 mm[Hg] Maximo Jose Angel WOOD MOLDER Work Phone: [facility] 07-07-2024 13:20-0400 Heart rate 76 /min Maximo Nguyen WOOD MOLDER Work Phone: [facility] 07-07-2024 13:20-0400 Systolic blood pressure 135 mm[Hg] Maximo Nguyen WOOD MOLDER Work Phone: [facility] 03-10-2024 13:02-0400 Body height 175.3 cm Marizol Hightower DO Work Phone: [facility] [employer] [facility] 03-10-2024 13:02-0400 Body mass index (BMI) [Ratio] 21.41 kg/m2 Marizol Hightower DO Work Phone: [facility] [employer] [facility] 03-10-2024 13:02-0400 Body weight 65.77 kg Marizol Hightower Work Phone: [facility] 03-10-2024 13:02-0400 Diastolic blood pressure 72 mm[Hg] Marizol Hightower DO Work Phone: [facility] [employer] 03-10-2024 13:02-0400 Heart rate 79 /min Marizol Hightower DO Work Phone: [facility] [employer] 03-10-2024 13:02-0400 Systolic blood pressure 156 mm[Hg] Marizol Hightower DO Work Phone: [facility] Encounters Encounter Date Encounter Type Care Provider Facility Start: 12-20-2024 End: 12-22-2024 Refill Frandy DURHAM Comment on above: Degenerative disc di sease at L5-S1 level Start: 12-14-2024 End: 12-14-2024 Office outpatient visit 25 minutes America GAMEZ Work Phone: [facility] Comment on above: Degenerative disc di sease at L5-S1 level (Primary Dx); Panlobular emphysema (CMS/HCC); Primary hypertension (CMS/HCC); Simple chronic bronchitis (CMS/HCC); Tobacco dependence Start: 12-14-2024 End: 12-14-2024 ambulatory AMERICA CHRISTIANSON Not Available Start: 12-13-2024 End: 12-13-2024 Reftracy Richmond MD Work Phone: [facility] Comment on above: Localization-related epilepsy (CMS/HCC) Start: 11-25-2024 End: 11-25-2024 Reftracy Richmond MD Work Phone: [facility] Comment on above: Degenerative disc di sease at L5-S1 level Start: 10-27-2024 End: 10-27-2024 Reftracy Richmond MD Work Phone: [facility] Comment on above: Localization-related epilepsy (CMS/HCC) Start: 10-26-2024 End: 10-26-2024 Bamboo flowsheet Alvino Torres DO Work Phone: [facility] Start: 10-26-2024 End: 10-26-2024 Bamboo flowsheet Alvino Torres DO Work Phone: [facility] [place] Start: 10-26-2024 End: 10-26-2024 Patient encounter procedure Alvino Torres DO Work Phone: [facility] [employer] Comment on above: Lumbar radiculopathy (Primary Dx); Lumbosacral radiculopathy Start: 10-26-2024 End: 10-27-2024 Reftracy Richmond MD Work Phone: [facility] Comment on above: Localization-related epilepsy (CMS/HCC) Start: 10-25-2024 End: 10-26-2024 Reftracy Richmond MD Work Phone: [facility] Comment on above: Degenerative disc di sease at L5-S1 level Start: 10-19-2024 End: 10-19-2024 Shawn Richmond MD Work Phone: [facility] Comment on above: Degenerative disc di sease at L5-S1 level Start: 09-28-2024 End: 09-28-2024 Office outpatient visit 25 minutes Maximo Nguyen NP Work Phone: [facility] [employer] [address] Comment on above: Lumbar radiculopathy (Primary Dx); Essential tremor; Gait instability; Polypharmacy; Seizure disorder (CMS/HCC) Start: 09-28-2024 End: 09-28-2024 Refill Mitul Richmond MD Work Phone: [facility] Comment on above: Localization-related epilepsy (CMS/HCC) Start: 09-22-2024 End: 09-22-2024 Refill Sharon Bourne MA [facility] Comment on above: Degenerative disc di sease at L5-S1 level Start: 09-20-2024 End: 09-20-2024 Refill Frandy Lizarraga MA [facility] [place] [address] [facility] Comment on above: Degenerative disc di sease at L5-S1 level Start: 08-31-2024 End: 08-31-2024 Bamboo flowsheet America GAMEZ Work Phone: [facility] Start: 08-31-2024 End: 08-31-2024 Bamboo flowsheet America GAMEZ Work Phone: [facility] Start: 08-31-2024 End: 08-31-2024 Patient encounter procedure America GAMEZ Work Phone: [facility] Comment on above: Medicare annual well [facility] visit, subsequent (Primary Dx); ACP (advance care planning); Encounter for immunization; Diabetic peripheral neuropathy associated with type 2 diabetes mellitus (CMS/HCC); Essential tremor; Localization-related epilepsy (CMS/HCC); Lumbar radiculopathy; Lumbosacral neuritis; Lumbosacral radiculopathy; Polyneuropathy; Right lumbar radiculopathy; Seizure disorder (CMS/HCC); Panlobular emphysema (CMS/HCC); Hiatal hernia; Simple chronic bronchitis (CMS/HCC); Hemorrhoids, external; Primary hypertension (CMS/HCC); Gastro-esophageal reflux disease without esophagitis; Tubulovillous adenoma of colon; Benign localized prostatic hyperplasia with lower urinary tract symptoms (LUTS); Degeneration of intervertebral disc of lumbar region with discogenic back pain; Degenerative disc disease at L5-S1 level; Hand eczema; Lumbar spondylosis; Primary osteoarthritis involving multiple joints; IGT (impaired glucose tolerance); Chronic otitis externa of left ear, unspecified type; Acute recurrent sinusitis, unspecified location; Abnormal gait; Balance disorder; Depressive disorder (CMS/HCC); Falls frequently; Gait instability; Hyponatremia; Migraine without aura and without status migrainosus, not intractable (CMS/HCC); Mixed hyperlipidemia (CMS/HCC); Tobacco dependence due to cigarettes; Tremor; Visual impairment Start: 08-31-2024 End: 08-31-2024 ambulatory AMERICA CHRISTIANSON Not Available Start: 08-30-2024 End: 08-30-2024 Refill Dariela Bolton LPN [facility] Comment on above: Localization-related epilepsy (CMS/HCC); Degenerative disc disease at L5-S1 level Start: 08-20-2024 End: 08-23-2024 Refill Maximo Nguyen NP Work Phone: [facility] [employer] [address] Comment on above: Degenerative disc di sease at L5-S1 level Start: 08-16-2024 End: 08-16-2024 Telephone encounter Kristopher Braga MA [facility] [employer] [facility] Comment on above: Med Refill Start: 08-03-2024 End: 08-03-2024 Bamboo flowsheet Avlino Torres DO Work Phone: [facility] [place] [address] Start: 08-03-2024 End: 08-03-2024 Bamboo flowsheet Alvino Torres DO Work Phone: [facility] [employer] [facility] Start: 08-03-2024 End: 08-03-2024 Patient encounter procedure [facility]ino Torres [facility] Comment on above: Lumbar radiculopathy (Primary Dx); Lumbosacral radiculopathy Start: 08-03-2024 End: 08-03-2024 ambulatory ALVINO TORRES Not Available Start: 07-28-2024 End: 07-28-2024 Refill Dariela Bolton LPN [facility] Comment on above: Degenerative disc di sease at L5-S1 level Start: 07-26-2024 End: 07-26-2024 Refill Mitul Richmond MD Work Phone: [facility] Comment on above: Depressive disorder ([facility]); Allergic rhinitis, unspecified seasonality, unspecified trigger; Localization-related epilepsy ([facility]/HCC) Start: 07-26-2024 End: 07-26-2024 Refill Sharon Bourne MA [facility] Comment on above: Degenerative disc di sease at L5-S1 level Start: 07-08-2024 End: 07-08-2024 Patient encounter procedure Frandy Avitia DPM Work Phone: [facility] Comment on above: Diabetes mellitus du e to underlying condition with diabetic polyneuropathy, unspecified whether halfway insulin use ([facility]) (Primary Dx); Onychomycosis; Toe pain, bilateral Start: 07-08-2024 End: 07-08-2024 Bamboo flowsheet Frandy Avitia DPM Work Phone: [facility] Start: 07-08-2024 End: 07-08-2024 Bamboo flowsheet Frandy Avitia DPM Work Phone: [facility] Start: 07-08-2024 End: 07-08-2024 ambulatory FRANDY AVITIA Not Available Start: 07-07-2024 End: 07-07-2024 Bamboo flowsheet Maximo Nguyen WOOD MOLDER Work Phone: [facility] [place] [address] Start: 07-07-2024 End: 07-07-2024 Bamboo flowsheet Maximo Nguyen WOOD MOLDER Work Phone: [facility] [place] [address] [facility] Start: 07-07-2024 End: 07-07-2024 Office outpatient visit 25 minutes Maximo Nguyen WOOD MOLDER Work Phone: [facility] [address] Comment on above: Lumbar radiculopathy (Primary Dx); Essential tremor; DDD (degenerative disc disease), lumbar; Polyneuropathy; Gait instability; Seizure disorder ([facility]); Polypharmacy; Degenerative disc disease at L5-S1 level Start: 07-07-2024 End: 07-07-2024 ambulatory MAXIMO NGUYEN Not Available Start: 07-05-2024 End: 07-05-2024 Refill Dariela Bolton LPN [facility] Comment on above: Degenerative disc di sease at L5-S1 level Start: 07-02-2024 End: 07-05-2024 Refill America Christianson PA Work Phone: [facility] Comment on above: Right lumbar radicul opathy Start: 06-29-2024 End: 06-29-2024 Refill Frandy Lizarraga MA [facility] [place] [address] [facility] Comment on above: Degenerative disc di sease at L5-S1 level Start: 06-24-2024 End: 06-24-2024 Refill America Christianson PA Work Phone: [facility] Comment on above: Localization-related epilepsy (CMS/HCC) Start: 05-25-2024 End: 05-25-2024 ambulatory AMERICA CHRISTIANSON Not Available Start: 05-20-2024 End: 05-20-2024 ambulatory FRANDY A BROWN Not Available Start: 05-11-2024 End: 05-11-2024 ambulatory ALVINO TORRES Not Available Start: 05-06-2024 End: 05-06-2024 ambulatory FRANDY A BROWN Not Available Start: 04-29-2024 End: 04-29-2024 ambulatory FRANDY A BROWN Not Available Start: 04-01-2024 End: 04-01-2024 ambulatory FRANDY A BROWN Not Available Start: 03-10-2024 End: 03-10-2024 ambulatory MARIZOL HIGHTOWER [facility] Start: 03-10-2024 End: 03-10-2024 Office outpatient new 45 minutes Marizol Hightower DO Work Phone: [facility] Comment on above: Rectal bleeding ([facility] Dx); Other emphysema (CMS-HCC); Tobacco abuse Start: 02-23-2024 End: 02-23-2024 ambulatory AMERICA CHRISTIANSON Not Available Start: 02-05-2024 End: 02-05-2024 ambulatory FRANDY A BROWN Not Available Start: 11-24-2023 Chart abstracting America romero PA Work Phone: [facility] Start: 02-06-2023 End: 02-07-[address] MITUL RICHMODN Facility: Start: 08-14-2017 Ambulatory ELLENSUAD MORRIS Amanda ty:[facility] Start: 06-08-2017 End: 06-09-2017 Ambulatory SHARON EPSTEIN Facility:[facility] Procedures Date Procedure Procedure Detail Performing Clinician Start: 03-21-2021 Colonoscopy America romero PA Work Phone: Start: 06-08-2017 FLUOROSCOPY OF ESOPH LOU[place] USING OTHER CONTRAST DUTCH DE SOUZA Plan of Treatment Date Care Activity Detail Author Start: 03-21-2031 Screening for malignant neoplasm of colon [facility] Start: 05-25-2025 Urine screening for protein Diabetes: Urine Protein Screening [facility] Start: 04-15-2025 Glaucoma screening Diabetes: R etinopathy Screening [facility] Start: 03-15-2025 End: 03-15-2025 Patient encounter procedure 03/15/2025 1:00 PM EDT Office Visit [facility] [address] [place] [phone] America Christianson PA [address] [place] [address] [facility] Start: 03-10-2025 Adult BMI Screening Adult BMI Screen ing [facility] Start: 03-10-2025 Tobacco Screening Tobacco Screening [facility] Start: 02-16-2025 End: 02-16-2025 Patient encounter procedure 02/16/2025 1:15 PM EDT Office Visit [facility] [address] [place] [address] Alvino Torres DO [address] [place], [place] [phone] [facility] Start: 02-16-2025 End: 02-16-2025 Patient encounter procedure 02/16/2025 11:30 AM EDT Office Visit [facility] [address] [place] [phone] Alvino Torres DO [address] [place], [place] [phone] [facility] Start: 02-10-2025 End: 02-10-2025 Patient encounter procedure 02/10/2025 1:20 PM EDT Office Visit [facility] [address] [place] [phone] Chirag GloriaLOUISE [address] [place] [phone] [facility] Start: 12-30-2024 End: 12-30-2024 Patient encounter procedure 12/30/2024 1:00 PM EDT Office Visit [facility] [address] [place] [address] [facility] Start: 12-14-2024 End: 12-14-2024 Patient encounter procedure 12/14/2024 1:30 PM EST Office Visit [facility] [address] [place] [address] America Christianson PA [address] [place] [address] [facility] Start: 12-01-2024 End: 12-01-2024 Patient encounter procedure 12/01/2024 1:00 PM EST Office Visit [facility] [address] [place] [address] America Christianson PA [address] [place] [address] [facility] Start: 10-26-2024 End: 10-26-2024 Patient encounter procedure [facility] [place] [address] [facility] Comment on above: Arrived Start: 09-28-2024 End: 09-28-2025 Nerve Block Nerve Block Procedures Routine Lumbar radiculopathy Expected: 09/28/2024 (Approximate), Expires: 09/28/2025 [facility] Work Phone: Comment on above: Expected: 09/28/2024 (Approximate), Expires: 09/28/2025 Start: 09-28-2024 End: 09-28-2024 Patient encounter procedure 09/28/2024 1:20 PM EST Office Visit [facility] [place] [facility] [address] [place] [phone] Maximo Nguyen NP [address] [place], [place] [phone] [facility] [place] [facility] Start: 09-23-2024 End: 09-23-2024 Patient encounter procedure 09/23/2024 2:00 PM EST Procedure Visit [facility] [address] [place] [phone] Frandy Avitia DPM [address] [facility] [address] [place], [place] [phone] [facility] Start: 09-02-2024 End: 09-02-2024 Patient encounter procedure 09/02/2024 2:40 PM EST Office Visit [facility] [place] [facility] [address] [place] [phone] Maximo Nguyen NP [address] [place], [place] [phone] [facility] [address] Start: 08-31-2024 End: 08-31-2024 Patient encounter procedure 08/31/2024 1:00 PM EST Office Visit [facility] [address] [place] [address] America Christianson PA [address] [place] [address] [facility] Start: 08-25-2024 Hemoglobin A1c measurement Diabetes: Hemoglobin A1C [facility] Start: 08-08-2024 Medicare Annual Wellness (AWV) Medicare Annual Wellness (AWV) [facility] Start: 08-03-2024 End: 08-03-2024 Patient encounter procedure [facility] [place] [address] [facility] Comment on above: Arrived Start: 07-08-2024 End: 07-08-2024 Patient encounter procedure [facility] Comment on above: Diabetes mellitus du e to underlying condition with diabetic polyneuropathy, unspecified whether intermodal dispatcher insulin use ([facility]) (Primary Dx); Onychomycosis; Toe pain, bilateral Start: 07-07-2024 End: 07-07-2025 Nerve Block Nerve Block Procedures Routine Lumbar radiculopathy Expected: 07/07/2024 (Approximate), Expires: 07/07/2025 [facility] Comment on above: Expected: 07/07/2024 (Approximate), Expires: 07/07/2025 Start: 07-07-2024 End: 07-07-2024 Patient encounter procedure [facility] [place] [address] Comment on above: Arrived Start: 06-20-2024 Influenza vaccination [facility] Start: 05-05-2024 End: 05-05-2024 Patient encounter procedure 05/05/2024 7:30 AM EDT Procedure visit [facility] [address] [place] [address] Marizol Hightower DO [address] [place], [place] [phone] [facility] Start: 04-26-2024 End: 04-26-2024 Patient encounter procedure 04/26/2024 3:00 PM EDT [facility] [address] [place] [phone] Ayleen Beard, MANAGER PRODUCT MANAGEMENT-[employer]ER PRODUCTION WORKER [address] [place], [place] [phone] [facility] Start: 11-24-2023 End: 11-24-2023 Patient encounter procedure 11/24/2023 2:00 PM EST Office Visit [facility] [address] [place] [phone] America Christianson PA [address] [facility] [address] [place] [address] [facility] Start: 09-06-2023 Hemoglobin A1c measurement Diabetes: Hemoglobin A1C [facility] Start: 07-04-2022 Urine screening for protein Diabetes: Urine Protein Screening [facility] Start: 2021 Fall Risk Screening Fall Risk Screen ing [facility] Start: 1975 DTaP,Tdap and Td Vaccines (1 - Tdap) DTaP,Tdap and Td Vaccines (1 - Tdap) [facility] Start: 1968 Depression Screening Depression Scre ening [facility] Start: 1956 Medicare Annual Wellness Visit Medicare Annual Wellness Visit [facility] Start: 1956 Screening for malignant neoplasm of colon [facility] Start: 1956 Tobacco Counseling Tobacco Counselin g [facility] End: 03-10-2025 Colonoscopy Colonoscopy GI Routine Rectal bleeding 1 Occurrences starting 03/10/2024 until 03/10/2025 [facility] Work Phone: Comment on above: 1 Occurrences starti ng 03/10/2024 until 03/10/2025 MR Lumbar spine WO contrast MR lumbar spine wo contrast Imaging Routine Lumbar radiculopathy DDD (degenerative disc disease), lumbar Gait instability Ordered: 07/07/2024 [facility] Work Phone: Comment on above: Ordered: 07/07/2024 Immunizations Immunization Date Immunization Notes Care Provider Fa cili 08-31-2024 Influenza, High-dose Seasonal, Quadrivalent, Preservative Free America GAMEZ Work Phone: [facility] 09-10-2023 Pneumococcal Conjuga te PCV 20 America GAMEZ Work Phone: [facility] 09-10-2023 RSV, recombinant, protein subunit RSVpreF, adjuvant reconstitu, 120mcg/0.5mL, PF (Arexvy) America GAMEZ Work Phone: [facility] 08-14-2023 Pfizer Ziegler Cap SARS-CoV-2 Vaccination America Hemmer PA Work Phone: [facility] 08-08-2023 Influenza, High-dose Seasonal, Quadrivalent, Preservative Free America Hemmer PA Work Phone: [facility] 08-08-2023 influenza virus vacc ine, unspecified formulation Marizol Hightower DO Work Phone: [facility] 06-27-2021 influenza, injectabl e, quadrivalent, preservative free America Hemmer PA Work Phone: [facility] 11-22-2020 pneumococcal conjuga te vaccine, 13 valent America Hemmer PA Work Phone: [facility] 09-29-2020 zoster vaccine recombinant America Hemmer PA Work Phone: [facility] 06-14-2020 influenza, high dose seasonal, preservative-free America Hemmer PA Work Phone: [facility] 06-14-2020 zoster vaccine recombinant America Hemmer PA Work Phone: [facility] 09-17-2019 Influenza, injectabl e, Madin Rula Canine Kidney, preservative free, quadrivalent America Hemmer PA Work Phone: [facility] 07-16-2018 seasonal influenza, intradermal, preservative free America Hemmer PA Work Phone: [facility] 09-04-2017 seasonal influenza, intradermal, preservative free America Hemmer PA Work Phone: [facility] 06-22-2014 seasonal influenza, intradermal, preservative free America Hemmer PA Work Phone: [facility] 03-22-2014 zoster vaccine, live America rea PA Work Phone: [facility] 2013 pneumococcal conjuga te vaccine, 13 valent America Hemmer PA Work Phone: [facility] 2012 pneumococcal polysaccharide vaccine, 23 valent America Hemmer PA Work Phone: [facility] Payers Date Payer Category Payer Medicaid [id number] 2021 Medicare [id number] 2021 Medicare [id number] 1958 Medicaid [id number] 1958 Medicare [id number] 1956 Unknown [id number] 2.16.84 [id number] 1956 Unknown [id number] 2.16.84 [id number] 1956 Unknown [id number] 2.16.8 [id number] 1956 Unknown [id number] 2.16.84 [id number] 1956 Unknown [id number] 2.16.84 [id number] 1956 Unknown [id number] 2.16.84 [id number] 1956 Unknown [id number] 2.16.84 [id number] 1956 Unknown [id number] 2.16.84 [id number] 1956 Unknown [id number] 2.16.84 [id number] 1956 Unknown [id number] 2.16.84 [id number] 1956 Unknown [id number] 2.16.84 [id number] 1956 Unknown [id number] 2.16.84 [id number] 1956 Unknown [id number] 2.16.84 [id number] 1955 Unknown [id number] 2.16.84 [id number] 1955 Unknown [id number] 2.16.84 [id number] 1955 Unknown [id number] 2.16.84 [id number] 1955 Unknown [id number] 2.16.84 [id number] 1955 Unknown [id number] 2.16.84 [id number] 1955 Unknown [id number] 2.16.84 [id number] Unknown [id number] Social History Date Type Detail Facility Start: 08-08-2023 End: 05-25-2024 Tobacco smoking status NDIS Smokes tobacco daily [facility] History of tobacco use Cigarette Smoker [facility] Start: 08-08-2023 End: 12-14-2024 Cigarettes smoked current (pack per day) - Reported 1 [facility] Start: 08-08-2023 End: 05-25-2024 Tobacco use and exposure Smokeless tobacco non-user [facility] Start: 11-11-2023 End: 12-14-2024 Alcohol intake Lifetime non-drinker (finding) [facility] Start: 11-11-2023 End: 12-14-2024 Tobacco use panel [facility] Start: 1955 Sex Assigned At Not on file [facility] Start: 05-25-2024 Tobacco Comment Smoking 7 ciga rs a day as of 05/25/2024 and vapes. H/o 1 PPD [facility] Start: 03-10-2024 Alcoholic beverage intake Ex-drinker (finding) [facility] Unknown [facility] Medical Equipment Procedure Code Equipment Code Equipment Origin al Text Equipment Identifier Dates 1 each by Other route in the morning and 1 each before bedtime. [id number] Start: 07-24-2023 Use as instructe d twice a day [id number] Start: 07-24-2023 End: 07-23-2024 Clinical Notes 03-10-2024 to 12-22-2024 Telephone Encounter - FRANCO Reyna - 12/22/2024 3:05 PM ESTTelephone Encounter - FRANCO Reyna - 12/22/2024 3:05 PM ESTTelephone Encounter - Ursula Cruz - 12/22/2024 1:52 PM EST Note Date & Type Note Facility 12-22-2024 Telephone encounter Note OARRS reviewed, Rx sent into patient's pharmacy. [facility] 12-22-2024 Miscellaneous Notes OARRS reviewed, Rx sent into patient's pharmacy[facility] [place] Home health nurse states that he has been failing a lot. (Twice Friday), pt stated to the nurse that he has been losing his balance a lot lately. Pt went down on his butt both times. No bruising was seen by the nurse and he was in no pain from it documented in this encounter [facility] 12-22-2024 Telephone encounter Note [facility] [place] [facility] 12-20-2024 Telephone encounter Note OARRs reviewed. Rx sent. [facility] 12-20-2024 Miscellaneous Notes OARRs reviewed. Rx sent. The pt calls in and requests refill of Lyrica. Oarrs reviewed DUE NOW documented in this encounter [facility] 12-20-2024 Telephone encounter Note The pt calls in and requests refill of Lyrica. Oarrs reviewed DUE NOW [facility] 12-20-2024 Telephone encounter Note Home health nurse states that he has been failing a lot. (Twice Friday), pt stated to the nurse that he has been losing his balance a lot lately. Pt went down on his butt both times. No bruising was seen by the nurse and he was in no pain from it [facility] 12-14-2024 History of Present illness Narrative Images from the original note were not included. Subjective Patient ID: Dutch Monique SR is a 69 y.o. male who presents for lumbar back pain. Dutch is present today for follow up lumbar back pain. He is currently on Hydrocodone as needed and this works well for him. States he is using his Albuterol HFA three times a day. Current Outpatient Medications on File Prior to Visit Medication Sig Dispense Refill acetaminophen (Tylenol Extra Strength) 500 MG tablet Take 500 mg by mouth every 6 (six) hours if needed for mild pain albuterol HFA 90 mcg/act inhaler Inhale 2 puffs every 4 (four) hours if needed for wheezing 18 g 11 ARIPiprazole (Abilify) 2 MG tablet Take 1 tablet (2 mg) by mouth Daily 100 tablet 3 diphenhydrAMINE (BENADryl) 25 MG capsule Take 25 mg by mouth at bedtime EPINEPHrine (AUVI-Q) 0.15 mg/0.15 mL IJ solution auto-injector injection Inject 0.3 mL (0.3 mg) into the shoulder, thigh, or buttocks if needed for anaphylaxis fluticasone (Flonase) 50 MCG/ACT nasal spray Administer 2 sprays into each nostril Daily 16 g 5 furosemide (Lasix) 20 MG tablet Take 20 mg by mouth Daily [] HYDROcodone-acetaminophen (Fertile) 10-325 MG tablet Take 2 tablets by mouth every 6 (six) hours if needed for severe pain for up to 15 days 120 tablet 0 lisinopril 20 MG tablet TAKE 1 TABLET (20MG) BY MOUTH AT NOON BEFORE A MEAL 30 tablet 10 naloxone (Narcan) 4 mg/0.1 mL nasal spray Administer 1 spray (4 mg) into affected nostril(s) if needed for opioid reversal May repeat every 2-3 minutes if needed, alternating nostrils, until medical assistance becomes available. 2 each 0 nicotine polacrilex (Commit) 4 MG lozenge Dissolve 1 lozenge (4 mg) in the mouth every 8 (eight) hours if needed for smoking cessation. (Patient not taking: Reported on 12/13/2024) 90 lozenge 2 nicotine polacrilex (Nicorette) 4 MG gum Chew 1 each (4 mg) every 8 (eight) hours if needed for smoking cessation. (Patient not taking: Reported on 12/13/2024) 90 each 3 pantoprazole (ProtoNix) 40 MG EC tablet TAKE 1 TABLET BY MOUTH EVERY MORNING 30 tablet 10 PHENobarbital (Luminal) 32.4 MG tablet TAKE 1 TABLET BY MOUTH THREE TIMES DAILY (IN THE MORNING, IN THE EVENING, and BEFORE bedtime) 90 tablet 5 phenytoin ER (Dilantin) 100 MG capsule Take 1 capsule (100 mg) by mouth in the morning and 1 capsule (100 mg) in the evening and 1 capsule (100 mg) before bedtime. 90 capsule 5 pregabalin (Lyrica) 150 MG capsule Take 1 capsule (150 mg) by mouth in the morning and 1 capsule (150 mg) in the evening and 1 capsule (150 mg) before bedtime. 90 capsule 1 primidone (Mysoline) 50 MG tablet Take 2 tablets in the am, 1 tablet in the afternoon, and 2 tablets at bedtime 150 tablet 5 sildenafil (Viagra) 50 MG tablet Take 1 tablet (50 mg) by mouth Daily as needed for erectile dysfunction 8 tablet 2 simvastatin (Zocor) 40 MG tablet TAKE 1 TABLET BY MOUTH IN THE MORNING 30 tablet 10 tamsulosin (Flomax) 0.4 MG 24 hr capsule TAKE 1 CAPSULE BY MOUTH EVERY MORNING 30 capsule 10 tiZANidine (Zanaflex) 4 MG tablet TAKE 2 TABLETS BY MOUTH EVERY 8 HOURS NEEDED FOR MUSCLE SPASMS 60 tablet 10 venlafaxine XR (Effexor XR) 150 MG 24 hr capsule Take 1 capsule (150 mg) by mouth Daily Do not crush or chew. 100 capsule 3 venlafaxine XR (Effexor XR) 75 MG 24 hr capsule Take 1 capsule (75 mg) by mouth Daily 100 capsule 3 [DISCONTINUED] Alcohol Swabs (Alcohol Prep) pads Apply 1 Pad topically every 12 (twelve) hours. [DISCONTINUED] Blood Glucose Monitoring Suppl (FreeStyle Lite) w/Device kit 1 Units in the morning and at noon. [DISCONTINUED] EPINEPHrine (AUVI-Q) 0.15 mg/0.15 mL IJ solution auto-injector injection Inject 0.15 mL (0.15 mg) into the shoulder, thigh, or buttocks if needed for anaphylaxis. 3 each 1 [DISCONTINUED] FreeStyle lancets 1 each by Other route in the morning and 1 each before bedtime. 200 each 3 [DISCONTINUED] PHENobarbital (Luminal) 32.4 MG tablet TAKE 1 TABLET BY MOUTH THREE TIMES DAILY (IN THE MORNING, IN THE EVENING, and BEFORE bedtime) 90 tablet 0 No current facility-administered medications on file prior to visit. I have reviewed and reconciled the history and medication list with the patient today. Allergies Allergen Reactions Duloxetine Unknown Anger, doesn't know where he is Bee Pollen Unknown Bupropion Carbamazepine Unknown Ceclor [Cefaclor] Cymbalta [Duloxetine Hcl] Trileptal [Oxcarbazepine] Social History Tobacco Use Smoking status: Every Day Current packs/day: 0.25 Average packs/day: 0.3 packs/day for 15.0 years (3.8 ttl pk-yrs) Types: Cigarettes Smokeless tobacco: Never Tobacco comments: Smoking 7 cigars a day as of 05/25/2024 and vapes. 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 Chronic cholecystitis 2009 Convulsions (CMS/HCC) Disturbance of skin sensation Enthesopathy of hip region Headache History of degenerative disc disease Hypertension (CMS/HCC) Left supracondylar humerus fracture 06/02/2023 Lesion of ulnar nerve Lumbar radiculopathy Lumbar spondylosis Malaise and fatigue Migraine (CMS/HCC) Neck injury 05/2017 following a fall on railing Pain in limb Presbyopia Pseudophakia of right eye Radiculopathy, lumbosacral region Seizure disorder (CMS/HCC) Tremor Type 2 diabetes mellitus (CMS/HCC) Past Surgical History: Procedure Laterality Date BACK SURGERY 1981 GALL BLADDER INTRAOCULAR LENS INSERTION Right 06/2018 KNEE SURGERY Right repair LUMBAR TRANSFORAMINAL EPIDURAL STEROID INJECTION Bilateral 12/26/2020 L4 LUMBAR TRANSFORAMINAL EPIDURAL STEROID INJECTION 12/17/2022 L4 NOSE SURGERY NASAL SURGERY ORIF HUMERUS FRACTURE Left 06/09/2023 [place] LAP,CHOLECYSTECTOMY 2008 Disease:Chronic cholecystitis SHOULDER SURGERY Left 06/2023 TOTAL KNEE ARTHROPLASTY 1981 Visit Vitals BP 132/70 Pulse 71 Resp 16 Ht 5' 9 Wt 153 lb 9.6 oz SpO2 97% BMI 22.68 kg/m Smoking Status Every Day BSA 1.84 m Review of Systems Constitutional: Negative for chills, fatigue and fever. Respiratory: Positive for shortness of breath. Negative for cough and wheezing. Cardiovascular: Negative for chest pain, palpitations and leg swelling. Gastrointestinal: Negative for abdominal pain, constipation, diarrhea, nausea and vomiting. Musculoskeletal: Positive for back pain and gait problem. Skin: Negative for rash. Objective Physical Exam Constitutional: General: He is not in acute distress. Appearance: Normal appearance. Comments: Pleasant. Smells heavily of cigarette smoke HENT: Head: Normocephalic and atraumatic. Eyes: General: No scleral icterus. Cardiovascular: Rate and Rhythm: Normal rate and regular rhythm. Heart sounds: No murmur heard. Pulmonary: Effort: Pulmonary effort is normal. No respiratory distress. Breath sounds: Decreased air movement present. No wheezing, rhonchi or rales. Musculoskeletal: General: No swelling. Skin: General: Skin is warm and dry. Neurological: General: No focal deficit present. Mental Status: He is alert and oriented to person, place, and time. Gait: Gait abnormal. Comments: Using wheelchair Psychiatric: Mood and Affect: Mood normal. Behavior: Behavior normal. Assessment/Plan Diagnoses and all orders for this visit: Degenerative disc disease at L5-S1 level Medication choice and dosage is appropriate for patient's current medical conditions. Patient will continue to be required to be seen in our office at least every three months for monitoring. At each follow up visit I will reassess the patient's need for the medication. Patient is to have this medication prescribed only through this office. Failure to follow the rules and regulations will result in tapering and discontinuation of medications if applicable. Patient verbalized understanding. OARRS Report was reviewed for this patient. Panlobular emphysema (CMS/HCC) - Spcbatx-Gtphuvheywq-Ixuqdjhxqt (Breztri Aerosphere) 160-9-4.8 MCG/ACT aerosol; Inhale 2 puffs in the morning and 2 puffs before bedtime. Advised pt that having to use his rescue inhaler so frequently means that his breathing is not well controlled. He is at high risk for complications, ie exacerbations and hospitalizations. He is agreeable to a maintenance inhaler. Reviewed instructions for use as well as most common potential s/e. Encouraged pt to make sure he rinses his mouth after each use. Advised pt that the goal would be to get him to the point where he needs Albuterol only 2-3 times a week. Primary hypertension (CMS/HCC) Patient's blood pressure is currently well controlled. Continue with current medications and I will continue to monitor. Goal BP remains less than 130/80. Simple chronic bronchitis (CMS/HCC) - Nheetky-Lqzwcnyoqmd-Ybylgyznvs (Breztri Aerosphere) 160-9-4.8 MCG/ACT aerosol; Inhale 2 puffs in the morning and 2 puffs before bedtime. See above. Tobacco dependence Discussed smoking cessation with the patient. Encouraged patient to cut back and soon quit smoking. Health risks of smoking, and benefits of quitting reviewed with the patient. Advised pt that smoking cessation will not undo the damage already done to his lungs after many years of smoking, but it may help to slow further progression of his lung disease. Follow up in about 3 months (around 03/13/2025) for Medication Follow Up. documented in this encounter [facility] 12-13-2024 Telephone encounter Note Rx was sent. [facility] 12-13-2024 Miscellaneous Notes Rx was sent. PHENobarbital (Luminal) 32.4 MG tablet to [facility] [place] documented in this encounter [facility] 12-13-2024 Telephone encounter Note PHENobarbital (Luminal) 32.4 MG tablet to [facility] [place] [facility] 11-25-2024 Telephone encounter Note HYDROcodone-acetaminophen (Fertile) 10-325 MG tablet to [facility] [place] [facility] 11-25-2024 Miscellaneous Notes HYDROcodone-acetaminophen (Fertile) 10-325 MG tablet to [facility] [place] documented in this encounter [facility] 10-27-2024 Telephone encounter Note Resent. [facility] 10-27-2024 Miscellaneous Notes Resent. Pt states was sent to his mail order [facility] they are currently out of stock pt is requesting rx be sent to [facility] instead documented in this encounter [facility] 10-27-2024 Telephone encounter Note Pt states was sent to his mail order [facility]) they are currently out of stock pt is requesting rx be sent to [facility] instead [facility] 10-27-2024 Telephone encounter Note Rx sent. [facility] 10-27-2024 Miscellaneous Notes Rx sent. PHENobarbital (Luminal) 32.4 MG tablet to [facility] [place] documented in this encounter [facility] 10-26-2024 Telephone encounter Note PHENobarbital (Luminal) 32.4 MG tablet to [facility] [place] [facility] 10-26-2024 History of Present illness Narrative Images from the original note were not included. Reason for Appointment: Epidural Patient ID: Dutch Monique SR is a 69 y.o. male who presents for lumbar radiculopathy. Current Medications: has a current medication list which includes the following prescription(s): acetaminophen, albuterol hfa, alcohol prep, aripiprazole, freestyle lite, diphenhydramine, epinephrine, fluticasone, freestyle lancets, furosemide, hydrocodone-acetaminophen, lisinopril, naloxone, nicotine polacrilex, nicotine polacrilex, pantoprazole, phenobarbital, phenytoin er, primidone, sildenafil, simvastatin, tamsulosin, tizanidine, venlafaxine xr, venlafaxine xr, and pregabalin. Vitals: Visit Vitals BP 148/78 Pulse 81 SpO2 96% Smoking Status Every Day Allergies: Allergies Allergen Reactions Duloxetine Unknown Anger, doesn't know where he is Bee Pollen Unknown Bupropion Carbamazepine Unknown Ceclor [Cefaclor] Cymbalta [Duloxetine Hcl] Trileptal [Oxcarbazepine] EPIDURAL NOTE: Bilateral L4 Epidural Injection Fluoroscopic needle guidance REASON FOR PROCEDURE: Lumbar radiculopathy and radicular pain ALLERGIES: See allergy list above. Patient specifically denies contrast and shellfish allergy. MEDICATIONS INJECTED: 1ml of 0.25% Bupivacaine mixed with Dexamethasone (10mg/ml) 10mg total. LOCAL ANESTHETIC INJECTED: None CONTRAST: Omnipaque 300mgI/mL, 1 mL per each procedure site SEDATION MEDICATIONS: None TOPICAL ANESTHETIC: Ethyl Chloride spray ESTIMATED BLOOD LOSS: None COMPLICATIONS: None TECHNIQUE: If applicable, blood thinning medications were held according to SIS and WANG guidelines. Time-out was taken to identify the correct patient, procedure, and side prior to starting the procedure. Lying in a prone position, the patient was prepped in the usual aseptic fashion. The appropriate site was identified under fluoroscopy. A 22 gauge needle was then introduced and the Right L4 foramen was negotiated under direct intermittent fluoroscopy. Lateral view was obtained to confirm needle placement and depth. Negative aspiration confirmed no blood and no CSF return. In the AP view 1 ml of Omnipaque 300mgI/mL contrast was injected and showed a good spread of the dye along the corresponding nerve root and through the foramen into the axillary recess of the epidural space without any vascular uptake. Then the 0.5ml of 0.25% Bupivacaine mixed with 0.5ml of Dexamethasone 10mg/ml was injected without adverse effect. The next appropriate site was identified under fluoroscopy. A 22 gauge needle was then introduced and the Left L4 foramen was negotiated under direct intermittent fluoroscopy. Lateral view was obtained to confirm needle placement and depth. Negative aspiration confirmed no blood and no CSF return. In the AP view 1 ml of Omnipaque 300mgI/mL contrast was injected and showed a good spread of the dye along the corresponding nerve root and through the foramen into the axillary recess of the epidural space without any vascular uptake. Then the 0.5ml of 0.25% Bupivacaine mixed with 0.5ml of Dexamethasone 10mg/ml was injected without adverse effect. The procedure was completed without complications and was tolerated well. The patient was monitored after the procedure. The patient (or responsible democrat) was given post-procedure and discharge instructions to follow at home. The patient was discharged in stable condition. A follow-up appointment was made. The patient was instructed to avoid activities that would normally worsen the pain. Pre-procedure pain score: 5 /10 Gaming Dealer: Bill Landry RT(R) kVp: 103 Time (sec): 21 mA: 3.0 documented in this encounter [facility] 10-26-2024 Telephone encounter Note OARRS reviewed, Rx sent into patient's pharmacy. [facility] 10-26-2024 Miscellaneous Notes OARRS reviewed, Rx sent into patient's pharmacy. Hydrocodone 10 3 [facility] [place] documented in this encounter [facility] 10-25-2024 Telephone encounter Note Hydrocodone 10 3 [facility] [place] [facility] 10-19-2024 Telephone encounter Note HYDROcodone-acetaminophen (Fertile) 10-325 MG tablet to [facility] [place] [facility] 10-19-2024 Miscellaneous Notes HYDROcodone-acetaminophen (Fertile) 10-325 MG tablet to [facility] [place] documented in this encounter [facility] 09-28-2024 Telephone encounter Note Refill sent. [facility] 09-28-2024 Miscellaneous Notes Refill sent. PHENobarbital (Luminal) 32.4 MG tablet [facility] [place] documented in this encounter [facility] 09-28-2024 History of Present illness Narrative Images from the original note were not included. Chief Complaint Patient presents with Back Pain Tremors Seizures Gait Problem Polyneuropathy Subjective Dutch Monique , 69 y.o., male The patient presents today for follow up. Admits lumbar MRI since last seen. He received lumbar EPI injections 08-03-24 and admits >50% reduction in his pain level. He states he is still getting relief from this today. The patient still admits some mild bilateral lower back pain which is constant. Lyrica is also helpful. The patient admits to continued bilateral lower extremity weakness which has not worsened. His balance has been a little better, admits one near-fall. He continues with PT twice weekly. He denies any saddle anesthesia or loss of bowel or bladder control. He has bilateral hand tremors which have not worsened. These occur primarily with action. He notices his handwriting is still poor. He continues on primidone which he states has been beneficial. He denies any recent seizures or missed doses of meds. Denies further concern today. . The patient does not drive. He is utilizing a wheelchair today because he states transportation will not take him unless he is sitting in a wheelchair. Review of Systems Constitutional: Negative for appetite change, fatigue and fever. Respiratory: Negative for cough, shortness of breath and wheezing. Cardiovascular: Negative for chest pain, palpitations and leg swelling. Gastrointestinal: Negative for abdominal pain, constipation, diarrhea and nausea. Musculoskeletal: Positive for arthralgias, back pain and gait problem. Negative for myalgias. Neurological: Positive for tremors, seizures (history of) and weakness. Negative for dizziness, numbness and headaches. 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 Chronic cholecystitis 2009 Convulsions (CMS/HCC) Disturbance of skin sensation Enthesopathy of hip region Headache History of degenerative disc disease Hypertension (CMS/HCC) Left supracondylar humerus fracture 06/02/2023 Lesion of ulnar nerve Lumbar radiculopathy Lumbar spondylosis Malaise and fatigue Migraine (CMS/HCC) Neck injury 05/2017 following a fall on railing Pain in limb Presbyopia Pseudophakia of right eye Radiculopathy, lumbosacral region Seizure disorder (CMS/HCC) Tremor Type 2 diabetes mellitus (CMS/HCC) Past Surgical History: Procedure Laterality Date BACK SURGERY 1981 GALL BLADDER INTRAOCULAR LENS INSERTION Right 06/2018 KNEE SURGERY Right repair LUMBAR TRANSFORAMINAL EPIDURAL STEROID INJECTION Bilateral 12/26/2020 L4 LUMBAR TRANSFORAMINAL EPIDURAL STEROID INJECTION 12/17/2022 L4 NOSE SURGERY NASAL SURGERY ORIF HUMERUS FRACTURE Left 06/09/2023 [place] LAP,CHOLECYSTECTOMY 2009 Disease:Chronic cholecystitis SHOULDER SURGERY Left 06/2023 TOTAL KNEE ARTHROPLASTY 1981 Family History Problem Relation Name Age of Onset Heart disease Mother Arthritis Mother Hypertension Mother No Known Problems Father Hypertension Other Social History Tobacco Use Smoking status: Every Day Current packs/day: 0.25 Average packs/day: 0.3 packs/day for 15.0 years (3.8 ttl pk-yrs) Types: Cigarettes Smokeless tobacco: Never Tobacco comments: Smoking 7 cigars a day as of 05/25/2024 and vapes. H/o 1 PPD Substance Use Topics Alcohol use: Never Allergies: Duloxetine, Bee pollen, Bupropion, Carbamazepine, Ceclor [cefaclor], Cymbalta [duloxetine hcl], and Trileptal [oxcarbazepine] Vitals: 09/28/24 1327 BP: 143/75 Pulse: 76 Body mass index is 23.18 kg/m . weight: 157 lb Neurologic exam: Mental status: Well nourished, well developed and in no acute distress. Grossly oriented to person, place and time. Recent and remote memory are intact. Language is fluent without aphasia. Attention and concentration are normal. Fund of knowledge is appropriate for level of education. Cranial nerves: CN II: Visual acuity is normal on the right. Chronic vision loss on the left. CN III, IV, : Normal pupil response on the right. Absent pupil response on the left. Extraocular movements intact. No ptosis present. CN V: Facial sensation is normal. CN VII: Full and symmetric facial movement. CN VIII: Hearing is intact. CN IX and X: Palate elevates symmetrically. CN XI: Shoulder shrug is normal bilaterally. CN XII: Tongue is midline without atrophy or fasciculation. Motor: RUE Strength deltoid, biceps, triceps, wrist extensors, wrist flexor, manager underwriting strength 5/5. LUE Strength deltoid, biceps, triceps, wrist extensors, wrist flexor, manager underwriting strength 5/5 (he does have difficulty with full flexion and extension at the elbow related to previous elbow injury). RLE Strength illopsoas, quadriceps 4+/5, tibialis anterior, and gastrocnemius strength 5/5. LLE Strength illopsoas, quadriceps 4+/5, tibialis anterior, and gastrocnemius strength 5/5. Normal tone x4 extremities without rigidity. Very minimal action tremor L>R. No resting tremor Sensory: Sensation is intact to light touch throughout distal extremities. Vibratory sensation is decreased to the distal bilateral lower extremities Reflexes: RUE biceps reflex 2+ , brachioradialis reflex 2+. LUE biceps reflex 2+, brachioradialis reflex 2+. RLE knee reflex 1+. LLE knee reflex 1+. Oneill's Sign negative. Coordination: Czzecw-gt-poay testing is normal Rapid alternating movements are normal Gait: Wheelchair, gait not assessed. Does use a cane/walker at home. Review and summary of old records: MRI of the lumbar spine on 07/22/2024: Moderate degenerative changes of the lumbar spine. At L4-L5 there is disc bulge with severe bilateral neural foraminal narrowing and moderate canal stenosis. There are facet joint arthrosis with ligamentum flavum thickening contributing to canal stenosis. At L5-S1 air is disc bulge with severe bilateral neural foraminal narrowing and mild canal stenosis. CT of the head/brain without contrast at [facility] on 09/12/23: no acute hemorrhage. Bifrontal atrophy noted. Moderate present previously. MRI of the lumbar spine without contrast at [facility] on 10/01/19: Degenerative changes resulting in bilateral L4/5 and L5/1 foraminal stenosis. 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 Would not exclude superimposed radicular process. Assessment/Plan Diagnoses and all orders for this visit: Lumbar radiculopathy Lumbosacral radiculopathy could not be excluded on BLE EMG from 11/12/19 but is clinically present and consistent with the patient's lumbar spine MRI findings. The patient has bilateral low back pain and lower extremity weakness. He has tried conservative measures including home-directed therapy exercises, narcotic medications (prescribed by another physician), neuropathic pain medication, and OTC medications without success. Bilateral L4 epidural injections have provided benefit (> 50% pain reduction lasting > 3 months). These improve the patient's quality of life and ability to perform ADLs. We did update imaging due to recurrent falls and MRI does demonstrate some progression of DDD with moderate canal stenosis and severe neuroforaminal narrowing at L4/5 and severe neuroforaminal narrowing with mild stenosis at L5/S1 among lesser degrees of changes at other levels. PLAN: - MRI results were reviewed with the patient today - Recommended continuation with PT through (currently 2 x weekly) - I did offer a neurosurgical opinion but the patient is adamant that he does not wish to pursue surgery. - Continue Lyrica 150 mg PO TID. OARRS reviewed - Repeat bilateral L4 epidural injections. Risks including but not limited to epidural hematoma, contrast reaction, infection, cumulative steroid dose risk, allergic reaction, and weakness were discussed and the patient would like to proceed. (The patient has been getting these for many years and requests to continue despite known cumulative steroid risks including risks of bone loss) - Fall precautions have been discussed - Red flag symptoms were discussed and the patient was advised to pursue emergent evaluation in the ED should he experience any such signs or symptoms. DDD (degenerative disc disease), lumbar Causative for the patient's radicular symptoms. PLAN: - See above. Gait instability Chronic gait instability. This is likely multifactorial, related to lumbosacral radiculopathy, polyneuropathy, and generalized deconditioning. PLAN: - Plan as above - Fall precautions discussed in detail - I encouraged regular use of a walker to help with stability Essential tremor The patient has a history of essential tremor managed with primidone. Tremor has subjectively worsened recently, and he reports ongoing difficulty with writing/coloring. Very mild tremor appreciated on clinical exam today. Consideration also given to possible side effect to Abilify and this has been discussed with the patient. PLAN: - Continue primidone 50 mg PO 2 tablets in the am, 1 tablet in the afternoon, and 2 tablets at bedtime. (I would avoid further increases due to multiple medications with WELFARE MANAGER depressive effects) - I would avoid propranolol in the setting of respiratory condition - Already on lyrica Polyneuropathy The patient has polyneuropathy as identified on BLE EMG from 10/2019 (severe, axonal loss). He has paresthesias in the bilateral feet and diminished distal BLE sensation on clinical examination. History of DM which is likely causative. I suspect that sensory changes are also affecting the patient's gait and instability. PLAN: - Plan as above - Recommended tight glucose control and daily skin checks of the feet. Seizure disorder ([facility]) The patient reports a history of seizure disorder which is stable and well controlled. Previous work-up for this is not available to me. His most recent seizure was in 1992 and described as generalized tonic-clonic. PLAN: - Currently taking phenobarbitol and phenytoin (prescribed by PCP) with no reported side effects. Given his stability over 30 years we did discuss potential reduction in medication but the patient is adamant that he does not want to risk the possibility of a breakthrough event. Polypharmacy Ongoing concerns for polypharmacy. We did have a lengthy conversation in regards to risks versus benefits of halfway use of his medications. The patient understands that the combination of pain medication, neuropathic medication, and seizure medication has substantial WELFARE MANAGER depressive effects and could be life threatening. The patient is adamant about the need to continue his current regimen without change and accepts these risks. Follow up after epidural injection or sooner if symptoms worsen, fail to improve, or should a new neurological concern arise. Pt has been fully educated on their diagnosis, treatment options, follow up plan, and return instructions HPI documented in this encounter [facility] 09-28-2024 Telephone encounter Note PHENobarbital (Luminal) 32.4 MG tablet ddm in andrei [facility] 09-22-2024 Telephone encounter Note OARRS reviewed, Rx sent into patient's pharmacy. [facility] 09-22-2024 Miscellaneous Notes OARRS reviewed, Rx sent into patient's pharmacy. documented in this encounter [facility] 09-20-2024 Telephone encounter Note The patient has been without his medication since 09/13/2024. Notes that his last rx was sent for qty of 78 and then we had to send him an rx for 12 to get him to his refill date. But no new rx was sent. Pt request to be sent to [facility]. Oarrs reviewed due now [facility] 09-20-2024 Miscellaneous Notes The patient has been without his medication since 09/13/2024. Notes that his last rx was sent for qty of 78 and then we had to send him an rx for 12 to get him to his refill date. But no new rx was sent. Pt request to be sent to [facility]. Oarrs reviewed due now documented in this encounter [facility] 08-31-2024 History of Present illness Narrative Images from the original note were not included. HPI nasal drainage Additional comments: Pt states he has nasal drainage and some post nasal drainage would like to be checked to see if he has a sinus infection. Started about a week ago. Last edited by FRANCO Reyna on 08/31/2024 1:17 PM. Subjective Patient ID: Dutch Monique Sr. is a 69 y.o. male who presents for Medicare Annual Wellness Visit Subsequent and nasal drainage (Pt states he has nasal drainage and some post nasal drainage would like to be checked to see if he has a sinus infection. Started about a week ago.). Has been doing PT twice a week. Going well. Medicare Wellness Over the past 2 weeks, how often have you been bothered by any of the following problems? Little interest or pleasure in doing things: Not at all Feeling down, depressed, or hopeless: Not at all Patient Health Questionnaire-2 Score: 0 Steinberg Fall Risk History of Falling, Immediate or Within 3 Months: No Secondary Diagnosis: No Ambulatory Aid: Crutches/cane/walker Health Risk Assessment Form Do you need help eating, bathing, using the toilet, dressing, or getting around your home?: Yes Can you prepare your own meals?: Yes Can you do your own housework without help?: Yes Can you shop for groceries or clothes without help?: No Do you exercise for about 20 minutes 3 or more days a week?: No How confident are you that you can control and manage most of your health problems?: Somewhat confident Can you mange your money, credit cards and accounts, pay bills and taxes?: Yes Cognitive Screening Three Word Registration: Apple, Watch, Lizeth Clock Drawing: Normal Clock - 2 Three Word Recall: All 3 words correct - 3 Total Score (0-5 Points): 5 Pain Assessment Pain Score: 4 Advance Care Planning Do you have a living will?: No Do you have a medical power of securities attorney?: No Current Outpatient Medications on File Prior to Visit Medication Sig Dispense Refill acetaminophen (Tylenol Extra Strength) 500 MG tablet Take 500 mg by mouth every 6 (six) hours if needed for mild pain albuterol HFA 90 mcg/act inhaler Inhale 2 puffs every 4 (four) hours if needed for wheezing 18 g 11 Alcohol Swabs (Alcohol Prep) pads Apply 1 Pad topically every 12 (twelve) hours. ARIPiprazole (Abilify) 2 MG tablet Take 1 tablet (2 mg) by mouth Daily 100 tablet 3 Blood Glucose Monitoring Suppl (FreeStyle Lite) w/Device kit 1 Units in the morning and at noon. diphenhydrAMINE (BENADryl) 25 MG capsule Take 25 mg by mouth at bedtime EPINEPHrine (AUVI-Q) 0.15 mg/0.15 mL IJ solution auto-injector injection Inject 0.15 mL (0.15 mg) into the shoulder, thigh, or buttocks if needed for anaphylaxis. 3 each 1 fluticasone (Flonase) 50 MCG/ACT nasal spray Administer 2 sprays into each nostril Daily 16 g 5 FreeStyle lancets 1 each by Other route in the morning and 1 each before bedtime. 200 each 3 furosemide (Lasix) 20 MG tablet Take 20 mg by mouth in the morning. HYDROcodone-acetaminophen (Fertile) 10-325 MG tablet Take 2 tablets by mouth every 6 (six) hours if needed for severe pain 120 tablet 0 lisinopril 20 MG tablet Take 1 tablet (20 mg) by mouth at noon. Take before meals 100 tablet 3 naloxone (Narcan) 4 mg/0.1 mL nasal spray Administer 1 spray (4 mg) into affected nostril(s) if needed for opioid reversal May repeat every 2-3 minutes if needed, alternating nostrils, until medical assistance becomes available. 2 each 0 nicotine polacrilex (Commit) 4 MG lozenge Dissolve 1 lozenge (4 mg) in the mouth every 8 (eight) hours if needed for smoking cessation. 90 lozenge 2 nicotine polacrilex (Nicorette) 4 MG gum Chew 1 each (4 mg) every 8 (eight) hours if needed for smoking cessation. 90 each 3 pantoprazole (ProtoNix) 40 MG EC tablet TAKE 1 TABLET BY MOUTH EVERY MORNING 30 tablet 10 PHENobarbital (Luminal) 32.4 MG tablet TAKE 1 TABLET BY MOUTH THREE TIMES DAILY (IN THE MORNING, IN THE EVENING, and BEFORE bedtime) 90 tablet 0 phenytoin ER (Dilantin) 100 MG capsule Take 1 capsule (100 mg) by mouth in the morning and 1 capsule (100 mg) in the evening and 1 capsule (100 mg) before bedtime. 90 capsule 5 pregabalin (Lyrica) 150 MG capsule Take 1 capsule (150 mg) by mouth in the morning and 1 capsule (150 mg) in the evening and 1 capsule (150 mg) before bedtime. 90 capsule 0 primidone (Mysoline) 50 MG tablet Take 2 tablets in the am, 1 tablet in the afternoon, and 2 tablets at bedtime 150 tablet 5 sildenafil (Viagra) 50 MG tablet Take 1 tablet (50 mg) by mouth Daily as needed for erectile dysfunction 8 tablet 2 simvastatin (Zocor) 40 MG tablet Take 1 tablet (40 mg) by mouth in the morning. 100 tablet 3 tamsulosin (Flomax) 0.4 MG 24 hr capsule TAKE 1 CAPSULE BY MOUTH EVERY MORNING 30 capsule 10 tiZANidine (Zanaflex) 4 MG tablet Take 2 tablets (8 mg) by mouth every 8 (eight) hours if needed for muscle spasms TAKE 2 TABLETS BY MOUTH EVERY 8 HOURS NEEDED FOR MUSCLE SPASMS 60 tablet 2 venlafaxine XR (Effexor XR) 150 MG 24 hr capsule Take 1 capsule (150 mg) by mouth Daily Do not crush or chew. 100 capsule 3 venlafaxine XR (Effexor XR) 75 MG 24 hr capsule Take 1 capsule (75 mg) by mouth Daily 100 capsule 3 [DISCONTINUED] HYDROcodone-acetaminophen (Fertile) 10-325 MG tablet Take 2 tablets by mouth every 6 (six) hours if needed for severe pain 120 tablet 0 [DISCONTINUED] PHENobarbital (Luminal) 32.4 MG tablet TAKE 1 TABLET BY MOUTH THREE TIMES DAILY (IN THE MORNING, IN THE EVENING, and BEFORE bedtime) 90 tablet 0 No current facility-administered medications on file prior to visit. I have reviewed and reconciled the history and medication list with the patient today. Allergies Allergen Reactions Duloxetine Unknown Anger, doesn't know where he is Bee Pollen Unknown Bupropion Carbamazepine Unknown Ceclor [Cefaclor] Cymbalta [Duloxetine Hcl] Trileptal [Oxcarbazepine] Social History Tobacco Use Smoking status: Every Day Current packs/day: 0.25 Average packs/day: 0.3 packs/day for 15.0 years (3.8 ttl pk-yrs) Types: Cigarettes Smokeless tobacco: Never Tobacco comments: Smoking 7 cigars a day as of 05/25/2024 and vapes. 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 Chronic cholecystitis 2009 Convulsions (CMS/HCC) Disturbance of skin sensation Enthesopathy of hip region Headache History of degenerative disc disease Hypertension (CMS/HCC) Left supracondylar humerus fracture 06/02/2023 Lesion of ulnar nerve Lumbar radiculopathy Lumbar spondylosis Malaise and fatigue Migraine (CMS/HCC) Neck injury 05/2017 following a fall on railing Pain in limb Presbyopia Pseudophakia of right eye Radiculopathy, lumbosacral region Seizure disorder (CMS/HCC) Tremor Type 2 diabetes mellitus (CMS/HCC) Past Surgical History: Procedure Laterality Date BACK SURGERY 1981 GALL BLADDER INTRAOCULAR LENS INSERTION Right 06/2018 KNEE SURGERY Right repair LUMBAR TRANSFORAMINAL EPIDURAL STEROID INJECTION Bilateral 12/26/2020 L4 LUMBAR TRANSFORAMINAL EPIDURAL STEROID INJECTION 12/17/2022 L4 NOSE SURGERY NASAL SURGERY ORIF HUMERUS FRACTURE Left 06/09/2023 [place] LAP,CHOLECYSTECTOMY 2008 Disease:Chronic cholecystitis SHOULDER SURGERY Left 06/2023 TOTAL KNEE ARTHROPLASTY 1981 Visit Vitals BP 134/72 Pulse 62 Ht 5' 9 Wt 153 lb SpO2 99% BMI 22.59 kg/m Smoking Status Every Day BSA 1.84 m Review of Systems Constitutional: Negative for chills, fatigue and fever. HENT: Positive for postnasal drip and rhinorrhea. Negative for congestion, ear pain, sinus pressure and sore throat. Eyes: Negative for pain, discharge and redness. Respiratory: Negative for cough, shortness of breath and wheezing. Cardiovascular: Negative for chest pain, palpitations and leg swelling. Gastrointestinal: Negative for abdominal pain, constipation, diarrhea, nausea and vomiting. Genitourinary: Negative for dysuria, frequency and urgency. Musculoskeletal: Positive for back pain and gait problem. Negative for arthralgias. Skin: Negative for rash. Neurological: Negative for dizziness, numbness and headaches. Psychiatric/Behavioral: Negative for confusion, dysphoric mood and sleep disturbance. Objective Physical Exam Constitutional: General: He is not in acute distress. Appearance: Normal appearance. Comments: Pleasant. Smells heavily of cigarette smoke HENT: Head: Normocephalic and atraumatic. Right Ear: Tympanic membrane and ear canal normal. Left Ear: Tympanic membrane and ear canal normal. Nose: Nose normal. Mouth/Throat: Mouth: Mucous membranes are moist. Pharynx: No posterior oropharyngeal erythema. Eyes: General: No scleral icterus. Extraocular Movements: Extraocular movements intact. Conjunctiva/sclera: Conjunctivae normal. Pupils: Pupils are equal, round, and reactive to light. Neck: Vascular: No carotid bruit. Cardiovascular: Rate and Rhythm: Normal rate and regular rhythm. Heart sounds: No murmur heard. Pulmonary: Effort: Pulmonary effort is normal. No respiratory distress. Breath sounds: Decreased air movement present. No wheezing, rhonchi or rales. Abdominal: General: Bowel sounds are normal. Palpations: Abdomen is soft. Tenderness: There is no abdominal tenderness. There is no guarding. Musculoskeletal: General: No swelling. Cervical back: Normal range of motion. No tenderness. Lymphadenopathy: Cervical: No cervical adenopathy. Skin: General: Skin is warm and dry. Neurological: General: No focal deficit present. Mental Status: He is alert and oriented to person, place, and time. Gait: Gait abnormal. Comments: Using wheelchair Psychiatric: Mood and Affect: Mood normal. Behavior: Behavior normal. 1. Medicare annual wellness visit, subsequent (Primary) Reviewed all relevant preventative screenings with the patient in detail. Medicare Wellness form completed and will be scanned into patient's chart. All needed testing was ordered. Will continue with yearly Medicare Wellness exams. 2. ACP (advance care planning) Patient agreed to discuss advance care planning at today's wellness visit. We discussed that an advance directive is a legal document that only goes into effect if the patient is incapacitated and unable to speak for himself or herself. This would help healthcare providers to ensure that the patient gets the care that he or she wishes to receive. The goal is to provide a patient with the best possible quality of life. Encouraged patient to obtain a living will and durable power of securities attorney for healthcare. We discussed telling brice people about their advance directives such as close family members, and requested a copy to scan into the patient's EHR. An advance directive packet was offered to the patient. 3. Encounter for immunization Provided pt with a Flu shot today. He tolerated this well. - Influenza, high-dose seasonal, quadrivalent, PF (ZXD480) (Fluzone High Dose [place] 0.7mL dose) 4. Diabetic peripheral neuropathy associated with type 2 diabetes mellitus ([facility]) Hemoglobin A1c on 05/25/2024 was 4.9. Will continue to monitor with routine labs. 5. Essential tremor The patient is seeing a medical facilities section director for this condition, treatment is deferred to that specialist. Correspondence from that specialist and any available testing were reviewed during today's visit. 6. Localization-related epilepsy ([facility]/HCC) The patient is seeing a medical facilities section director for this condition, treatment is deferred to that specialist. Correspondence from that specialist and any available testing were reviewed during today's visit. 7. Lumbar radiculopathy The patient is seeing a medical facilities section director for this condition, treatment is deferred to that specialist. Correspondence from that specialist and any available testing were reviewed during today's visit. 8. Lumbosacral neuritis The patient is seeing a medical facilities section director for this condition, treatment is deferred to that specialist. Correspondence from that specialist and any available testing were reviewed during today's visit. 9. Lumbosacral radiculopathy The patient is seeing a medical facilities section director for this condition, treatment is deferred to that specialist. Correspondence from that specialist and any available testing were reviewed during today's visit. 10. Polyneuropathy The patient is seeing a medical facilities section director for this condition, treatment is deferred to that specialist. Correspondence from that specialist and any available testing were reviewed during today's visit. 11. Right lumbar radiculopathy The patient is seeing a medical facilities section director for this condition, treatment is deferred to that specialist. Correspondence from that specialist and any available testing were reviewed during today's visit. 12. Seizure disorder ([facility]) The patient is seeing a medical facilities section director for this condition, treatment is deferred to that specialist. Correspondence from that specialist and any available testing were reviewed during today's visit. 13. Panlobular emphysema ([facility]) This is a chronic medical condition that is stable since last assessment. No changes in treatment are suggested at this time. 14. Hiatal hernia This is a chronic medical condition that is stable since last assessment. No changes in treatment are suggested at this time. 15. Simple chronic bronchitis ([facility]) This is a chronic medical condition that is stable since last assessment. No changes in treatment are suggested at this time. 16. Hemorrhoids, external This is a chronic medical condition that is stable since last assessment. No changes in treatment are suggested at this time. 17. Primary hypertension ([facility]) Patient's blood pressure is currently well controlled. Continue with current medications and I will continue to monitor. Goal BP remains less than 130/80. 18. Gastro-esophageal reflux disease without esophagitis This is a chronic medical condition that is stable since last assessment. No changes in treatment are suggested at this time. 19. Tubulovillous adenoma of colon Seen on previous testing. Will continue routine screenings. 20. Benign localized prostatic hyperplasia with lower urinary tract symptoms (LUTS) This is a chronic medical condition that is stable since last assessment. No changes in treatment are suggested at this time. Will continue to monitor with routine labs. 21. Degeneration of intervertebral disc of lumbar region with discogenic back pain The patient is seeing a medical facilities section director for this condition, treatment is deferred to that specialist. Correspondence from that specialist and any available testing were reviewed during today's visit. 22. Degenerative disc disease at L5-S1 level The patient is seeing a medical facilities section director for this condition, treatment is deferred to that specialist. Correspondence from that specialist and any available testing were reviewed during today's visit. 23. Hand eczema This is a chronic medical condition that is stable since last assessment. No changes in treatment are suggested at this time. 24. Lumbar spondylosis The patient is seeing a medical facilities section director for this condition, treatment is deferred to that specialist. Correspondence from that specialist and any available testing were reviewed during today's visit. 25. Primary osteoarthritis involving multiple joints This is a chronic medical condition that is stable since last assessment. No changes in treatment are suggested at this time. 26. IGT (impaired glucose tolerance) This is a chronic medical condition that is stable since last assessment. No changes in treatment are suggested at this time. Will continue to monitor with routine labs. 27. Chronic otitis externa of left ear, unspecified type This is a chronic medical condition that is stable since last assessment. No changes in treatment are suggested at this time. 28. Acute recurrent sinusitis, unspecified location Drainage has been improving for pt. Start Flonase daily for next 1-2 weeks. If symptoms do not continue to improve he can contact the office. 29. Abnormal gait The patient is seeing a medical facilities section director for this condition, treatment is deferred to that specialist. Correspondence from that specialist and any available testing were reviewed during today's visit. 30. Balance disorder The patient is seeing a medical facilities section director for this condition, treatment is deferred to that specialist. Correspondence from that specialist and any available testing were reviewed during today's visit. 31. Depressive disorder (CMS/HCC) This is a chronic medical condition that is stable since last assessment. No changes in treatment are suggested at this time. 32. Falls frequently The patient is seeing a medical facilities section director for this condition, treatment is deferred to that specialist. Correspondence from that specialist and any available testing were reviewed during today's visit. 33. Gait instability The patient is seeing a medical facilities section director for this condition, treatment is deferred to that specialist. Correspondence from that specialist and any available testing were reviewed during today's visit. 34. Hyponatremia This is a chronic medical condition that is stable since last assessment. No changes in treatment are suggested at this time. Will continue to monitor with routine labs. 35. Migraine without aura and without status migrainosus, not intractable (CMS/HCC) This is a chronic medical condition that is stable since last assessment. No changes in treatment are suggested at this time. 36. Mixed hyperlipidemia (CMS/HCC) This is a chronic medical condition that is stable since last assessment. No changes in treatment are suggested at this time. Will continue to monitor with routine labs. 37. Tobacco dependence due to cigarettes Discussed smoking cessation with the patient. Encouraged patient to cut back and soon quit smoking. Health risks of smoking, and benefits of quitting reviewed with the patient. 38. Tremor The patient is seeing a medical facilities section director for this condition, treatment is deferred to that specialist. Correspondence from that specialist and any available testing were reviewed during today's visit. 39. Visual impairment This is a chronic medical condition that is stable since last assessment. No changes in treatment are suggested at this time. Follow up in about 3 months (around 12/01/2024) for Medication Follow Up. NORAH MagañaC documented in this encounter [facility] 08-23-2024 Telephone encounter Note This was filled on 08/20/24 [facility] 08-23-2024 Miscellaneous Notes This was filled on 08/20/24 documented in this encounter [facility] 08-16-2024 Telephone encounter Note OARRs reviewed. Rx sent. [facility] 08-16-2024 Miscellaneous Notes OARRs reviewed. Rx sent. Oarrs reviewed 9.30 for pregabalin 150 mg, needs sent to drug [facility] documented in this encounter [facility] 08-16-2024 Telephone encounter Note Oarrs reviewed 9.30 for pregabalin 150 mg, needs sent to drug to[facility] cobb [facility] 08-03-2024 History of Present illness Narrative Images from the original note were not included. Reason for Appointment: Epidural Patient ID: Dutch Monique Sr. is a 69 y.o. male who presents for lumbar radiculopathy. Current Medications: has a current medication list which includes the following prescription(s): acetaminophen, albuterol hfa, alcohol prep, aripiprazole, freestyle lite, diphenhydramine, epinephrine, fluticasone, freestyle lancets, furosemide, hydrocodone-acetaminophen, lisinopril, naloxone, nicotine polacrilex, nicotine polacrilex, pantoprazole, phenobarbital, phenytoin er, pregabalin, primidone, sildenafil, simvastatin, tamsulosin, tizanidine, venlafaxine xr, and venlafaxine xr. Vitals: Visit Vitals BP 150/79 Pulse 79 SpO2 94% Smoking Status Every Day Allergies: Allergies Allergen Reactions Duloxetine Unknown Anger, doesn't know where he is Bee Pollen Unknown Bupropion Carbamazepine Unknown Ceclor [Cefaclor] Cymbalta [Duloxetine Hcl] Trileptal [Oxcarbazepine] EPIDURAL NOTE: Bilateral L4 Epidural Injection Fluoroscopic needle guidance REASON FOR PROCEDURE: Lumbar radiculopathy and radicular pain ALLERGIES: See allergy list above. Patient specifically denies contrast and shellfish allergy. MEDICATIONS INJECTED: 1ml of 0.25% Bupivacaine mixed with Dexamethasone (10mg/ml) 10mg total. LOCAL ANESTHETIC INJECTED: None CONTRAST: Omnipaque 300mgI/mL, 1 mL per each procedure site SEDATION MEDICATIONS: None TOPICAL ANESTHETIC: Ethyl Chloride spray ESTIMATED BLOOD LOSS: None COMPLICATIONS: None TECHNIQUE: If applicable, blood thinning medications were held according to SIS and WANG guidelines. Time-out was taken to identify the correct patient, procedure, and side prior to starting the procedure. Lying in a prone position, the patient was prepped in the usual aseptic fashion. The appropriate site was identified under fluoroscopy. A 22 gauge needle was then introduced and the Right L4 foramen was negotiated under direct intermittent fluoroscopy. Lateral view was obtained to confirm needle placement and depth. Negative aspiration confirmed no blood and no CSF return. In the AP view 1 ml of Omnipaque 300mgI/mL contrast was injected and showed a good spread of the dye along the corresponding nerve root and through the foramen into the axillary recess of the epidural space without any vascular uptake. Then the 0.5ml of 0.25% Bupivacaine mixed with 0.5ml of Dexamethasone 10mg/ml was injected without adverse effect. The next appropriate site was identified under fluoroscopy. A 22 gauge needle was then introduced and the Left L4 foramen was negotiated under direct intermittent fluoroscopy. Lateral view was obtained to confirm needle placement and depth. Negative aspiration confirmed no blood and no CSF return. In the AP view 1 ml of Omnipaque 300mgI/mL contrast was injected and showed a good spread of the dye along the corresponding nerve root and through the foramen into the axillary recess of the epidural space without any vascular uptake. Then the 0.5ml of 0.25% Bupivacaine mixed with 0.5ml of Dexamethasone 10mg/ml was injected without adverse effect. The procedure was completed without complications and was tolerated well. The patient was monitored after the procedure. The patient (or responsible democrat) was given post-procedure and discharge instructions to follow at home. The patient was discharged in stable condition. A follow-up appointment was made. The patient was instructed to avoid activities that would normally worsen the pain. Pre-procedure pain score: 6 /10 Gaming Dealer: RT Telma(R) kVp: 103 Time (sec): 21 mA: 3.0 documented in this encounter [facility] 07-28-2024 Telephone encounter Note OARRS reviewed, Rx sent into patient's pharmacy. Resent to DM [facility] 07-28-2024 Miscellaneous Notes OARRS reviewed, Rx sent into patient's pharmacy. Resent to DM documented in this encounter [facility] 07-26-2024 Miscellaneous Notes Meds sent documented in this encounter [facility] 07-26-2024 Telephone encounter Note Meds sent [facility] 07-08-2024 History of Present illness Narrative Patient: Dutch Monique . : 1955 PCP: No primary care provider on file. SUBJECTIVE This is a 68 y.o. male that presents today And is 9 weekspost right 2nd digit flexor tenotomy procedure Patient denies n/f/v/c. Patient states no pain to the toe and has been weight-bearing with normal shoe gear Patient presents today with a CC of elongated, thick nails. Pt states nails have been elongated and thick for many years and cause pain with ambulation in shoegear. Pt has tried previous treatment with minimal relief. Pt presents today for nail care and treatment. 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 Chronic cholecystitis 2009 Convulsions ([facility]) Disturbance of skin sensation Enthesopathy of hip region Headache History of degenerative disc disease Hypertension ([facility]) Left supracondylar humerus fracture 06/02/2023 Lesion of ulnar nerve Lumbar radiculopathy Lumbar spondylosis Malaise and fatigue Migraine ([facility]) Neck injury 05/2017 following a fall on railing Pain in limb Presbyopia Pseudophakia of right eye Radiculopathy, lumbosacral region Seizure disorder ([facility]) Tremor Type 2 diabetes mellitus ([facility]) Medications: Current Outpatient Medications: PHENobarbital (Luminal) 32.4 MG tablet, TAKE 1 TABLET BY MOUTH THREE TIMES DAILY (IN THE MORNING, IN THE EVENING, and BEFORE bedtime), Disp: 90 tablet, Rfl: 0 acetaminophen (Tylenol Extra Strength) 500 MG tablet, Take 500 mg by mouth every 6 (six) hours if needed for mild pain, Disp: , Rfl: albuterol HFA 90 mcg/act inhaler, Inhale 2 puffs every 4 (four) hours if needed for wheezing, Disp: 18 g, Rfl: 10 Alcohol Swabs (Alcohol Prep) pads, Apply 1 Pad topically every 12 (twelve) hours., Disp: , Rfl: ARIPiprazole (Abilify) 2 MG tablet, Take 1 tablet (2 mg) by mouth Daily, Disp: 100 tablet, Rfl: 3 Blood Glucose Monitoring Suppl (FreeStyle Lite) w/Device kit, 1 Units in the morning and at noon., Disp: , Rfl: diphenhydrAMINE (BENADryl) 25 MG capsule, Take 25 mg by mouth at bedtime, Disp: , Rfl: EPINEPHrine (AUVI-Q) 0.15 mg/0.15 mL IJ solution auto-injector injection, Inject 0.15 mL (0.15 mg) into the shoulder, thigh, or buttocks if needed for anaphylaxis., Disp: 3 each, Rfl: 1 fluticasone (Flonase) 50 MCG/ACT nasal spray, Administer 2 sprays into each nostril in the morning., Disp: 48 g, Rfl: 3 FreeStyle lancets, 1 each by Other route in the morning and 1 each before bedtime., Disp: 200 each, Rfl: 3 furosemide (Lasix) 20 MG tablet, Take 20 mg by mouth in the morning., Disp: , Rfl: glucose blood (FREESTYLE LITE) test strip, Use as instructed twice a day, Disp: 200 each, Rfl: 3 HYDROcodone-acetaminophen (Fertile) 10-325 MG tablet, Take 2 tablets by mouth every 6 (six) hours if needed for severe pain, Disp: 120 tablet, Rfl: 0 lisinopril 20 MG tablet, Take 1 tablet (20 mg) by mouth at noon. Take before meals, Disp: 100 tablet, Rfl: 3 naloxone (Narcan) 4 mg/0.1 mL nasal spray, Administer 1 spray (4 mg) into affected nostril(s) if needed for opioid reversal May repeat every 2-3 minutes if needed, alternating nostrils, until medical assistance becomes available., Disp: 2 each, Rfl: 0 nicotine polacrilex (Commit) 4 MG lozenge, Dissolve 1 lozenge (4 mg) in the mouth every 8 (eight) hours if needed for smoking cessation., Disp: 90 lozenge, Rfl: 2 nicotine polacrilex (Nicorette) 4 MG gum, Chew 1 each (4 mg) every 8 (eight) hours if needed for smoking cessation., Disp: 90 each, Rfl: 3 pantoprazole (ProtoNix) 40 MG EC tablet, TAKE 1 TABLET BY MOUTH EVERY MORNING, Disp: 30 tablet, Rfl: 10 phenytoin ER (Dilantin) 100 MG capsule, Take 1 capsule (100 mg) by mouth in the morning and 1 capsule (100 mg) in the evening and 1 capsule (100 mg) before bedtime., Disp: 300 capsule, Rfl: 3 pregabalin (Lyrica) 150 MG capsule, Take 1 capsule (150 mg) by mouth in the morning and 1 capsule (150 mg) in the evening and 1 capsule (150 mg) before bedtime., Disp: 90 capsule, Rfl: 1 primidone (Mysoline) 50 MG tablet, TAKE 1 TABLET BY MOUTH 5 TIMES A DAY, Disp: 150 tablet, Rfl: 10 sildenafil (Viagra) 50 MG tablet, Take 1 tablet (50 mg) by mouth Daily as needed for erectile dysfunction, Disp: 8 tablet, Rfl: 2 simvastatin (Zocor) 40 MG tablet, Take 1 tablet (40 mg) by mouth in the morning., Disp: 100 tablet, Rfl: 3 tamsulosin (Flomax) 0.4 MG 24 hr capsule, TAKE 1 CAPSULE BY MOUTH EVERY MORNING, Disp: 30 capsule, Rfl: 10 tiZANidine (Zanaflex) 4 MG tablet, Take 2 tablets (8 mg) by mouth every 8 (eight) hours if needed for muscle spasms TAKE 2 TABLETS BY MOUTH EVERY 8 HOURS NEEDED FOR MUSCLE SPASMS, Disp: 60 tablet, Rfl: 2 venlafaxine XR (Effexor XR) 150 MG 24 hr capsule, TAKE 1 CAPSULE BY MOUTH ONCE DAILY *EMERGENCY REFILL*, Disp: 100 capsule, Rfl: 3 venlafaxine XR (Effexor XR) 75 MG 24 hr capsule, take 1 capsule by mouth once daily with food, Disp: 100 capsule, Rfl: 2 Social History: Social History Socioeconomic History Marital status: Spouse name: Not on file Number of children: Not on file Years of education: Not on file Highest education level: Not on file Occupational History Not on file Tobacco Use Smoking status: Every Day Current packs/day: 0.25 Average packs/day: 0.3 packs/day for 15.0 years (3.8 ttl pk-yrs) Types: Cigarettes Smokeless tobacco: Never Tobacco comments: Smoking 7 cigars a day as of 05/25/2024 and vapes. H/o 1 PPD Vaping Use Vaping status: Every Day Substance and Sexual Activity Alcohol use: Never Drug use: Yes Types: Hydrocodone Sexual activity: Not on file Other Topics Concern Not on file Social History Narrative Not on file Social Determinants of Health Financial Resource Strain: Not on file Food Insecurity: Unknown (03/10/2024) Received from [facility]am[facility], [facility] Hunger Screening Within the past 12 months we worried whether our food would run out before we got money to buy more.: Never True Food Insecurity - Inability: Not on file Transportation Needs: Not on file Physical Activity: Not on file Stress: Not on file Social Connections: Not on file Intimate Partner Violence: Not on file Housing Stability: Not on file ROS: General: denies fever, chills, fatigue, malaise OBJECTIVE LE EXAM: DERM: Elongated thick yellow crumbly nails digits 1 through 10. Negative hair growth with thin shiny atrophic skin bilaterally skin intact to right 2nd digit with negative erythema negative drainage VASC: Negative DP and negative PT pedal pulses NEURO: 5.07 [place] monofilament test diminished to digits and forefoot bilaterally 125Hz tuning fork diminished to 1st MPJ bilaterally ORTHO: Positive pain on palpation to nails 1 through 10 Rectus distal right 2nd digit ALEX PVR right ALEX 1.21 TBI 0.85 left 1.20 TBI 0.81 with normal reading per Dr. Villagran report ASSESSMENT 1. Diabetes mellitus due to underlying condition with diabetic polyneuropathy, unspecified whether halfway insulin use ([facility]) 2. Onychomycosis 3. Toe pain, bilateral PLAN Patient to continue with normal shoe gear Discussed proper foot care with patient today. Debride nails in length and thickness digits 1 through 10 Patient educated today on proper diabetic foot care including monitoring feet daily for any signs of infection openings in the skin or irregularities to both feet. Patient had a diabetic neurological exam today to both their feet and discussed proper shoe gear. Frandy Avitia DPM documented in this encounter [facility] 07-07-2024 History of Present illness Narrative Images from the original note were not included. Chief Complaint Patient presents with Seizures Back Pain Gait Problem Tremors Subjective Dutch Monique Sr., 68 y.o., male The patient presents today for follow up last evaluated her on 12/16/23. Denies lumbar MRI since last seen. He received lumbar EPI injections 05-11 and admits >50% reduction in his pain level. He states he is still getting relief from this today. The patient still admits some mild bilateral lower back pain which is constant. The patient also has bilateral lower extremity weakness which have not worsened. His balance has been a little better, he denies recent falls. He denies any saddle anesthesia or loss of bowel or bladder control. He has bilateral hand tremors which have not worsened. These occur primarily with action. He notices his handwriting is still poor. He denies any recent seizures or missed doses of meds. Denies further concern today. . The patient does not drive. He is utilizing a wheelchair today because he states transportation will not take him unless he is sitting in a wheelchair. Review of Systems Constitutional: Negative for appetite change, fatigue and fever. Respiratory: Negative for cough, shortness of breath and wheezing. Cardiovascular: Negative for chest pain, palpitations and leg swelling. Gastrointestinal: Negative for abdominal pain, constipation, diarrhea and nausea. Musculoskeletal: Positive for arthralgias, back pain and gait problem. Negative for myalgias. Neurological: Positive for tremors, seizures (history of) and weakness. Negative for dizziness, numbness and headaches. 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 Chronic cholecystitis 2009 Convulsions ([facility]) Disturbance of skin sensation Enthesopathy of hip region Headache History of degenerative disc disease Hypertension ([facility]) Left supracondylar humerus fracture 06/02/2023 Lesion of ulnar nerve Lumbar radiculopathy Lumbar spondylosis Malaise and fatigue Migraine (CMS/HCC) Neck injury 05/2017 following a fall on railing Pain in limb Presbyopia Pseudophakia of right eye Radiculopathy, lumbosacral region Seizure disorder (CMS/HCC) Tremor Type 2 diabetes mellitus ([facility]) Past Surgical History: Procedure Laterality Date BACK SURGERY 1981 GALL BLADDER INTRAOCULAR LENS INSERTION Right 06/2018 KNEE SURGERY Right repair LUMBAR TRANSFORAMINAL EPIDURAL STEROID INJECTION Bilateral 12/26/2020 L4 LUMBAR TRANSFORAMINAL EPIDURAL STEROID INJECTION 12/17/2022 L4 NOSE SURGERY NASAL SURGERY ORIF HUMERUS FRACTURE Left 06/09/2023 [place] LAP,CHOLECYSTECTOMY 2009 Disease:Chronic cholecystitis SHOULDER SURGERY Left 06/2023 TOTAL KNEE ARTHROPLASTY 1981 Family History Problem Relation Name Age of Onset Heart disease Mother Arthritis Mother Hypertension Mother No Known Problems Father Hypertension Other Social History Tobacco Use Smoking status: Every Day Current packs/day: 0.25 Average packs/day: 0.3 packs/day for 15.0 years (3.8 ttl pk-yrs) Types: Cigarettes Smokeless tobacco: Never Tobacco comments: Smoking 7 cigars a day as of 05/25/2024 and vapes. H/o 1 PPD Substance Use Topics Alcohol use: Never Allergies: Duloxetine, Bee pollen, Bupropion, Carbamazepine, Ceclor [cefaclor], Cymbalta [duloxetine hcl], and Trileptal [oxcarbazepine] Vitals: 07/07/24 1320 BP: 135/78 Pulse: 76 Body mass index is 22.45 kg/m . weight: 152 lb Neurologic exam: Mental status: Well nourished, well developed and in no acute distress. Grossly oriented to person, place and time. Recent and remote memory are intact. Language is fluent without aphasia. Attention and concentration are normal. Fund of knowledge is appropriate for level of education. Cranial nerves: CN II: Visual acuity is normal on the right. Chronic vision loss on the left. CN III, IV, : Normal pupil response on the right. Absent pupil response on the left. Extraocular movements intact. No ptosis present. CN V: Facial sensation is normal. CN VII: Full and symmetric facial movement. CN VIII: Hearing is intact. CN IX and X: Palate elevates symmetrically. CN XI: Shoulder shrug is normal bilaterally. CN XII: Tongue is midline without atrophy or fasciculation. Motor: RUE Strength deltoid, biceps, triceps, wrist extensors, wrist flexor, manager underwriting strength 5/5. LUE Strength deltoid, biceps, triceps, wrist extensors, wrist flexor, manager underwriting strength 5/5 (he does have difficulty with full flexion and extension at the elbow related to previous elbow injury). RLE Strength illopsoas, quadriceps 4+/5, tibialis anterior, and gastrocnemius strength 5/5. LLE Strength illopsoas, quadriceps 4+/5, tibialis anterior, and gastrocnemius strength 5/5. Normal tone x4 extremities without rigidity. No resting tremor. Very minimal action tremor L>R. Bulk is normal. Sensory: Sensation is intact to light touch throughout distal extremities. Vibratory sensation is decreased to the distal bilateral lower extremities Reflexes: RUE biceps reflex 2+ , brachioradialis reflex 2+. LUE biceps reflex 2+, brachioradialis reflex 2+. RLE knee reflex 1+. LLE knee reflex 1+. Oneill's Sign negative. Coordination: [id number] testing is normal Rapid alternating movements are normal Gait: Wheelchair, gait not assessed. Does use a cane at home. Review and summary of old records: CT of the head/brain without contrast at [facility] on 09/12/23: no acute hemorrhage. Bifrontal atrophy noted. Moderate present previously. MRI of the lumbar spine without contrast at [facility] on 10/01/19: Degenerative changes resulting in bilateral L4/5 and L5/1 foraminal stenosis. 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 Would not exclude superimposed radicular process. Assessment/Plan Diagnoses and all orders for this visit: Lumbar radiculopathy Lumbosacral radiculopathy could not be excluded on BLE EMG from 11/12/19 but is clinically present and consistent with the patient's lumbar spine MRI findings. The patient has bilateral low back pain and lower extremity weakness. He has tried conservative measures including home-directed therapy exercises, narcotic medications (prescribed by another physician), neuropathic pain medication, and OTC medications without success. Bilateral L4 epidural injections have provided benefit (> 50% pain reduction lasting > 3 months). These improve the patient's quality of life and ability to perform ADLs. He remains active at home though I do have concern with his recurrent falls that DDD has progressed. PLAN: - Repeat lumbar MRI - Referral to - Continue Lyrica 150 mg PO TID. OARRS reviewed - Repeat bilateral L4 epidural injections. Risks including but not limited to epidural hematoma, contrast reaction, infection, cumulative steroid dose risk, allergic reaction, and weakness were discussed and the patient would like to proceed. (The patient has been getting these for many years and requests to continue despite known cumulative steroid risks including risks of bone loss) DDD (degenerative disc disease), lumbar The patient was found to have significant degenerative changes in the lumbar spine with moderate to severe arthritic changes and neural foraminal changes noted. Causative for the patient's radicular symptoms. PLAN: - See above. Gait instability Chronic gait instability. This is likely multifactorial, related to lumbosacral radiculopathy, polyneuropathy, and generalized deconditioning. PLAN: - Plan as above - Fall precautions discussed in detail - I encouraged regular use of a walker to help with stability Essential tremor The patient has a history of essential tremor managed with primidone. Tremor has subjectively worsened recently, and he reports ongoing difficulty with writing/coloring. Very mild tremor appreciated on clinical exam today. Consideration also given to possible side effect to Abilify and this has been discussed with the patient. PLAN: - Continue primidone 50 mg PO 2 tablets in the am, 1 tablet in the afternoon, and 2 tablets at bedtime. (I would avoid further increases due to multiple medications with WELFARE MANAGER depressive effects) - I would avoid propranolol in the setting of respiratory condition - Already on lyrica Polyneuropathy The patient has polyneuropathy as identified on BLE EMG from 10/2019 (severe, axonal loss). He has paresthesias in the bilateral feet and diminished distal BLE sensation on clinical examination. History of DM which is likely causative. I suspect that sensory changes are also affecting the patient's gait and instability. PLAN: - Plan as above - Recommended tight glucose control and daily skin checks of the feet. Seizure disorder (CMS/HCC) The patient reports a history of seizure disorder which is stable and well controlled. Previous work-up for this is not available to me. His most recent seizure was in 1992 and described as generalized tonic-clonic. PLAN: - Currently taking phenobarbitol and phenytoin (prescribed by PCP) with no reported side effects. Polypharmacy Ongoing concerns for polypharmacy. We did have a lengthy conversation in regards to risks versus benefits of intermodal dispatcher use of his medications. The patient understands that the combination of pain medication, neuropathic medication, and seizure medication has substantial WELFARE MANAGER depressive effects and could be life threatening. The patient is adamant about the need to continue his current regimen without change and accepts these risks. Follow up in 1 month after lumbar MRI or sooner if symptoms worsen, fail to improve, or should a new neurological concern arise. Pt has been fully educated on their diagnosis, treatment options, follow up plan, and return instructions documented in this encounter [facility] 07-05-2024 Telephone encounter Note Tizanidine sent. [facility] 07-05-2024 Miscellaneous Notes Tizanidine sent. documented in this encounter [facility] 06-29-2024 Telephone encounter Note OARRs reviewed. Rx sent [facility] 06-29-2024 Miscellaneous Notes OARRs reviewed. Rx sent documented in this encounter [facility] 06-24-2024 Telephone encounter Note OARRS reviewed, Rx sent into patient's pharmacy. [facility] 06-24-2024 Miscellaneous Notes OARRS reviewed, Rx sent into patient's pharmacy. documented in this encounter [facility] 03-10-2024 History of Present illness Narrative Images from the original note were not included. [facility] [address] [facility] [id number] CONSULT NOTE CHIEF COMPLAINT Chief Complaint Patient presents with GI Bleeding GI bleed, rectal prolapse, [facility] ER 02/29/24 Dutch Gonzalezraad Denise is a 68 y.o. male who presents with complaints of rectal bleeding and prolapse for which he went to the [facility] by squad on February 29, 2000. He states his rectum was protruding from his anus and that blood was dripping from the area. He states that he has hemorrhoids and he has had them for years. His last colonoscopy was by Dr. Butt in 2020? He has a history of colon polyps. He denies any family history of colon cancer. He denies any abdominal pain nor has he had any further rectal bleeding since February 28. He admits to shortness of breath and smokes tobacco and has been smoking for 25 years plus. He used a cane to ambulate due to unsteadiness on his feet. He has a hammertoe on his right foot which he is awaiting surgery on. He continues to smoke tobacco against advice. He is audibly coughing in the office a typical smoker's cough. He has chronic back pain. ER chart and all blood work reviewed by me from the [facility] from February 29, 2024. MEDICATION Current Outpatient Medications: albuterol (PROVENTIL HFA;VENTOLIN HFA) 90 mcg/actuation inhaler, Inhale 2 puffs 4 (four) times a day., Disp: , Rfl: ARIPiprazole (ABILIFY) 2 mg tablet, Take 1 tablet (2 mg total) by mouth in the morning., Disp: , Rfl: diphenhydrAMINE (BENADRYL) 25 mg capsule, Take 1 capsule (25 mg total) by mouth nightly., Disp: , Rfl: EPINEPHrine 0.15 mg/0.15 mL auto-injector, Inject 0.15 mg into the appropriate muscle as needed., Disp: , Rfl: fluticasone propionate (FLONASE) 50 mcg/actuation nasal spray, Administer 2 sprays into each nostril in the morning., Disp: , Rfl: HYDROcodone-acetaminophen (NORCO) 10-325 mg per tablet, Take 2 tablets by mouth every 6 (six) hours as needed., Disp: , Rfl: pantoprazole (PROTONIX) 40 mg EC tablet, Take 1 tablet (40 mg total) by mouth every morning before breakfast., Disp: , Rfl: PHENobarbitaL (LUMINAL) 32.4 mg tablet, 1 tablet (32.4 mg total) 3 (three) times a day., Disp: , Rfl: phenytoin (DILANTIN) 100 mg ER capsule, Take 1 capsule (100 mg total) by mouth 3 (three) times a day., Disp: , Rfl: pregabalin (LYRICA) 150 mg capsule, Take 1 capsule (150 mg total) by mouth 3 (three) times a day., Disp: , Rfl: primidone (MYSOLINE) 50 mg tablet, Take 1 tablet (50 mg total) by mouth. TAKE 2 TABLETS BY MOUTH EVERY MORNING, TAKE 1 TABLET IN THE AFTERNOON, AND TAKE 2 TABLETS AT BEDTIME, Disp: , Rfl: simvastatin (ZOCOR) 40 mg tablet, Take 1 tablet (40 mg total) by mouth in the evening., Disp: , Rfl: tamsulosin (FLOMAX) 0.4 mg capsule, Take 1 capsule (0.4 mg total) by mouth in the morning., Disp: , Rfl: tiZANidine (ZANAFLEX) 4 mg tablet, Take 1 tablet (4 mg total) by mouth 3 (three) times a day., Disp: , Rfl: venlafaxine XR (EFFEXOR XR) 75 mg 24 hr capsule, Take 1 capsule (75 mg total) by mouth in the morning., Disp: , Rfl: venlafaxine XR (EFFEXOR-XR) 150 mg 24 hr capsule, Take 1 capsule (150 mg total) by mouth in the morning., Disp: , Rfl: ALLERGY Allergies Allergen Reactions Bee Pollen Swelling Cymbalta [Duloxetine] Other (See Comments) Anger, doesn't know where he is Trileptal [Oxcarbazepine] Other (See Comments) collapse Ceclor [Cefaclor] Hives Carbamazepine Other (See Comments) Tegretol Wellbutrin [Bupropion Hcl] MEDICAL HISTORY Past Medical History: Diagnosis Date Essential tremor Hypertension SURGICAL HISTORY Past Surgical History: Procedure Laterality Date BACK SURGERY CHOLECYSTECTOMY COLONOSCOPY 3 total ELBOW FRACTURE SURGERY Left KNEE SURGERY Right NOSE SURGERY TOE SURGERY Right bunion removed TOOTH EXTRACTION multiple SOCIAL HISTORY Social History Socioeconomic History Marital status: Spouse name: Not on file Number of children: Not on file Years of education: Not on file Highest education level: Not on file Occupational History Not on file Tobacco Use Smoking status: Every Day Current packs/day: 0.50 Types: Cigarettes Smokeless tobacco: Never Vaping Use Vaping status: Never Used Substance and Sexual Activity Alcohol use: Not Currently Drug use: Not Currently Sexual activity: Not Currently Other Topics Concern Not on file Social History Narrative Not on file Social Determinants of Health Financial Resource Strain: Not on file Food Insecurity: Unknown (03/10/2024) Hunger Screening Food Insecurity - Worry: Never True Food Insecurity - Inability: Not on file Transportation Needs: Not on file Physical Activity: Not on file Stress: Not on file Social Connections: Not on file Interpersonal Safety: Not on file Housing Instability: Not on file FAMILY HISTORY Family History Problem Relation Age of Onset Depression Mother Hypertension Mother Heart disease Mother No Known Problems Father REVIEW OF SYSTEMS: Constitutional: Denies fevers, denies recent illnesses. Eyes: Denies any vision changes. ENT: Denies any throat pain. Neck: Denies any neck pain. Cardiovascular denies chest pain. Denies palpitations. Respiratory: Positive shortness of breath, pause cough, positive COPD Gastrointestinal: See chief complaint; Negative for abdominal pain, nausea, melena, hematochezia, weight loss, change in bowel habits or weight loss or emesis. Genitourinary negative for dysuria hematuria urinary frequency or urgency. Musculoskeletal: Positive back pain Neurologic: No change in sensation or paresthesias or history of seizure disorder skin: No rashes. Hematologic: No anemia. No purpura. No petechiae and no prolonged or excessive bleeding Allergic and immunologic: No pruritus. No swelling. Endocrine: No unexplained weight loss. No polydipsia. No polyuria. No polyphagia. PHYSICAL EXAM Constitutional: He is oriented to person, place, and time. Vital signs are normal. He appears well-developed and well-nourished. Appears older than stated age. HEENT: Head: Normocephalic and atraumatic. Eyes: Conjunctivae, EOM and lids are normal. Neck: Trachea normal. Neck supple. No thyroid mass present. Cardiovascular: Normal rate and regular rhythm. Pulmonary/Chest: Effort normal and breath sounds normal. Abdominal: Soft. Normal appearance. He exhibits no distension and no mass. There is no hepatosplenomegaly or splenomegaly. There is negative Brannon's sign. No hernia. Rectal exam reveals external skin tags but no obvious thrombosed hemorrhoids or nothing bleeding. There was no prolapsed rectum at this time when he was asked to Valsalva. Rectal digital exam reveals sphincter tone to be normal prostate slightly enlarged without any nodules or masses. No blood was found in the examining gloved finger. Musculoskeletal: Limited range of motion. Lymphadenopathy: He has no cervical adenopathy. He has no axillary adenopathy. Right: No inguinal and no supraclavicular adenopathy present. Left: No inguinal and no supraclavicular adenopathy present. Neurological: He is alert and oriented to person, place, and time. Skin: Skin is warm, dry and intact. Psychiatric: He has a normal mood and affect. His speech is normal and behavior is normal. Cognition and memory are normal. IMPRESSION 1. Rectal bleeding most likely secondary to? Internal hemorrhoids versus other etiology can not rule out cancer or polyps 2. Unsteadiness on feet requiring cane to ambulate 3. Tobacco abuse ASSESSMENT & PLAN 1. Tobacco cessation discussed with patient 2.Colonoscopy with possible biopsy or polypectomy. I discussed the risks, benefits, alternatives to the above which may include perforation or bleeding or risks of anesthesia. They understood all the above and wished to proceed. Evaluation included: Preparing to see the patient (e.g., review of tests) Obtaining and/or reviewing separately obtained history Performing a medically appropriate examination and/or evaluation Counseling and educating the patient/family/caregiver Referring and communicating with other health care manager Rectal bleeding [K62.5] Marizol Hightower DO This note was created with the assistance of a speech recognition program. While intending to generate a timely document that accurately reflects the content of the visit, no guarantee can be provided that every grammatical or spelling mistake has been or will be identified or corrected. Thank you for your understanding. documented in this encounter [facility] 03-10-2024 Instructions Marizol Hightower DO - 03/10/2024 1:15 PM EDT Are You Ready To Kick The Habit? Free Tobacco Cessation Resources [facility] Services [facility] provide all employees with free tobacco cessation services that include: Counseling to understand nicotine addiction Education about medications that can help you successfully quit Assistance with developing a plan to quit Call to set up an individual appointment or find out when group classes will be held: [facility]: [phone] [facility]: [phone] [facility]: [phone] [facility]: [phone] Quit Smoking Action Plan and Resources [facility] offers an eight-week, online smoking cessation plan to all [facility] employees, regardless of whether [place] is your medical insurance provider. Go to [email or web address] and click the Health Risk Assessment and Resources link to get started. In the Lnjpu4Rnmpzj menu, click Action Plans instead of Health Risk Assessment to access the Quit Smoking Action Plan. Additional smoking cessation resources are also available to all [facility] employees on the Adpeb9Bieryb web page at [email or web address] [email or web address]. [place] Tobacco Cessation Program If [employer] is your medical insurance provider, there are more free resources available to you, including: No copays or deductibles on local tobacco cessation counseling services to help you quit Prescription assistance for tobacco cessation medications to help you quit For details about the tobacco cessation program available to [place] members, go to [email or web address] (Search: Tobacco Cessation Program). [place] Tobacco Quit Line 7-763-TSXW-NOW ( ) is a toll-free, telephonic service that helps [place] residents quit smoking and using tobacco. It is staffed by experts who tailor a quit plan for you and provide you with advice. [place] Tobacco Quit Line 2-833-RNAX-NOW ( ) is a toll-free, telephonic service that helps [place] residents quit smoking and using tobacco. It is staffed by experts who tailor a quit plan for you and provide you with advice. Two weeks of nicotine replacement therapy may be provided at no charge, if needed. Additional Resources These national organizations also offer free information and resources to help you quit tobacco: [employer]--www.cancer.org/healthy/s tayawayfromtobacco [place] Heart [employer]--www.heart.org (Search: Quit Smoking) Centers for Disease Control and Prevention--www.cdc.gov/tobacco [place] Lung [employer]--www.lungusa.org documented in this encounter [facility] [employer] [facility] Evaluation note Diagnosis Depressive disorder (CMS/HCC) Depressive disorder, not elsewhere classified Allergic rhinitis, unspecified seasonality, unspecified trigger Localization-related epilepsy (CMS/HCC) Localization-related (focal) (partial) epilepsy and epileptic syndromes with simple partial seizures, without mention of intractable epilepsy documented in this encounter [facility]* Diagnosis Degenerative disc disease at L5-S1 level documented [facility] encounter [facility]* Diagnosis Degenerative disc disease at L5-S1 level documented [facility] this encounter [facility]* Diagnosis Lumbar radiculopathy- Primary Thoracic or lumbosacral neuritis or radiculitis, unspecified Lumbosacral radiculopathy Thoracic or lumbosacral neuritis or radiculitis, unspecified documented [facility]* Diagnosis Degenerative disc disease at L5-S1 level documented [facility] encounter [facility]* Diagnosis Degenerative disc disease at L5-S1 level documented [facility]* Diagnosis Localization-related epilepsy ([facility]/HCC) Localization-related (focal) (partial) epilepsy and epileptic syndromes with simple partial seizures, without mention of intractable epilepsy Degenerative disc disease at L5-S1 level documented [facility] encounter [facility]* Diagnosis Medicare annual wellness visit, subsequent- Primary ACP (advance care planning) Other specified counseling Encounter for immunization Diabetic peripheral neuropathy associated with type 2 diabetes mellitus ([facility]) Essential tremor Localization-related epilepsy ([facility]) Localization-related (focal) (partial) epilepsy and epileptic syndromes with simple partial seizures, without mention of intractable epilepsy Lumbar radiculopathy Thoracic or lumbosacral neuritis or radiculitis, unspecified Lumbosacral neuritis Thoracic or lumbosacral neuritis or radiculitis, unspecified Lumbosacral radiculopathy Thoracic or lumbosacral neuritis or radiculitis, unspecified Polyneuropathy Unspecified hereditary and idiopathic peripheral neuropathy Right lumbar radiculopathy Thoracic or lumbosacral neuritis or radiculitis, unspecified Seizure disorder ([facility]) Unspecified epilepsy without mention of intractable epilepsy Panlobular emphysema ([facility]) Other emphysema Hiatal hernia Diaphragmatic hernia without mention of obstruction or gangrene Simple chronic bronchitis ([facility]) Simple chronic bronchitis Hemorrhoids, external External hemorrhoids without mention of complication Primary hypertension ([facility]) Unspecified essential hypertension Gastro-esophageal reflux disease without esophagitis Tubulovillous adenoma of colon Benign localized prostatic hyperplasia with lower urinary tract symptoms (LUTS) Degeneration of intervertebral disc of lumbar region with discogenic back pain Degenerative disc disease at L5-S1 level Hand eczema Contact dermatitis and other eczema, due to unspecified cause Lumbar spondylosis Lumbosacral spondylosis without myelopathy Primary osteoarthritis involving multiple joints IGT (impaired glucose tolerance) Impaired glucose tolerance test Chronic otitis externa of left ear, unspecified type Acute recurrent sinusitis, unspecified location Abnormal gait Abnormality of gait Balance disorder Depressive disorder ([facility]) Depressive disorder, not elsewhere classified Falls frequently Personal history of fall Gait instability Abnormality of gait Hyponatremia Hyposmolality and/or hyponatremia Migraine without aura and without status migrainosus, not intractable ([facility]) Mixed hyperlipidemia ([facility]) Mixed hyperlipidemia Tobacco dependence due to cigarettes Tremor Abnormal involuntary movements Visual impairment Unspecified visual loss documented [facility]* Diagnosis Degenerative disc disease at L5-S1 level Diabetes mellitus due to underlying condition with diabetic polyneuropathy, unspecified whether halfway insulin use ([facility])- Primary Onychomycosis Dermatophytosis of nail Toe pain, left Pain in soft tissues of limb Toe pain, right Pain in soft tissues of limb PVD (peripheral vascular disease) ([facility]) Unspecified peripheral vascular disease documented in this encounter [facility]* Diagnosis Right lumbar radiculopathy Thoracic or lumbosacral neuritis or radiculitis, unspecified Diabetes mellitus due to underlying condition with diabetic polyneuropathy, unspecified whether halfway insulin use ([facility])- Primary Onychomycosis Dermatophytosis of nail Toe pain, bilateral documented in this encounter [facility]* Diagnosis Degenerative disc disease at L5-S1 level Diabetes mellitus due to underlying condition with diabetic polyneuropathy, unspecified whether intermodal dispatcher insulin use ([facility])- Primary Onychomycosis Dermatophytosis of nail Toe pain, bilateral documented in this encounter [facility]* Diagnosis Lumbar radiculopathy- Primary Thoracic or lumbosacral neuritis or radiculitis, unspecified Essential tremor DDD (degenerative disc disease), lumbar Degeneration of lumbar or lumbosacral intervertebral disc Polyneuropathy Unspecified hereditary and idiopathic peripheral neuropathy Gait instability Abnormality of gait Seizure disorder ([facility]) Unspecified epilepsy without mention of intractable epilepsy Polypharmacy Issue of repeat prescriptions Degenerative disc disease at L5-S1 level Diabetes mellitus due to underlying condition with diabetic polyneuropathy, unspecified whether halfway insulin use ([facility])- Primary Onychomycosis Dermatophytosis of nail Toe pain, bilateral documented in this encounter [facility]* Diagnosis Lumbar radiculopathy- Primary Thoracic or lumbosacral neuritis or radiculitis, unspecified Essential tremor Gait instability Abnormality of gait Polypharmacy Issue of repeat prescriptions Seizure disorder ([facility]/HCC) Unspecified epilepsy without mention of intractable epilepsy documented in this encounter [facility]* Diagnosis Localization-related epilepsy (CMS/HCC) Localization-related (focal) (partial) epilepsy and epileptic syndromes with simple partial seizures, without mention of intractable epilepsy documented in [facility] encounter [facility]* Diagnosis Localization-related epilepsy (CMS/HCC) Localization-related (focal) (partial) epilepsy and epileptic syndromes with simple partial seizures, without mention of intractable epilepsy documented [facility] encounter [facility]* Diagnosis Degenerative disc disease at L5-S1 level documented in this encounter [facility]* Diagnosis Diabetes mellitus due to underlying condition with diabetic polyneuropathy, unspecified whether intermodal dispatcher insulin use ([facility])- Primary Onychomycosis Dermatophytosis of nail Toe pain, bilateral documented in this encounter [facility]* Diagnosis Degenerative disc disease at L5-S1 level documented in this encounter [facility]* Diagnosis Localization-related epilepsy (CMS/HCC) Localization-related (focal) (partial) epilepsy and epileptic syndromes with simple partial seizures, without mention of intractable epilepsy documented in this encounter [facility]* Diagnosis Localization-related epilepsy (CMS/HCC) Localization-related (focal) (partial) epilepsy and epileptic syndromes with simple partial seizures, without mention of intractable epilepsy documented in this encounter [facility]* Diagnosis Degenerative disc disease at L5-S1 level documented in this encounter [facility]* Diagnosis Rectal bleeding- Primary Hemorrhage of rectum and anus Other emphysema ([facility]) Other emphysema Tobacco abuse Tobacco use disorder [facility] Diagnosis Localization-related epilepsy (CMS/HCC) Localization-related (focal) (partial) epilepsy and epileptic syndromes with simple partial seizures, without mention of intractable epilepsy documented in this encounter [facility]* Diagnosis Degenerative disc disease at L5-S1 level- Primary Panlobular emphysema (CMS/HCC) Other emphysema Primary hypertension (CMS/HCC) Unspecified essential hypertension Simple chronic bronchitis (CMS/HCC) Simple chronic bronchitis Tobacco dependence Tobacco use disorder documented in this encounter [facility]* Diagnosis Degenerative disc disease at L5-S1 level [facility] encounter [facility] N[facility]* Injection (Routine) - Closed Specialty Diagnoses / Procedures Referred By Contac t Referred To Contact Neurology Diagnoses Lumbar radiculopathy Lumbosacral radiculopathy Procedures Nerve Block Alvino Torres DO [address] [address] Phone: tel: fax: Referral ID Status Reason Start Date Expiration Date Visits Re quested Visits Authorized [id number] Closed 05/18/2024 11/14/2024 1 1 [facility] N[facility]ative* Injection (Routine) - Closed Specialty Diagnoses / Procedures Referred By Contac t Referred To Contact Neurology Diagnoses Lumbar radiculopathy Procedures Nerve Block Maximo Nguyen, LOUISE [address] [address] Phone: tel: fax: Referral ID Status Reason Start Date Expiration Date Visits Re quested Visits Authorized [id number] Closed 09/28/2024 03/27/2025 1 1 [facility] Summary Purpose Family History No Family History Records FoundNo Family History Records FoundNo Family History Records FoundNo Family History Records FoundNo Family History Records Found Advance Directives No Advanced Directives Records FoundNo Advanced Directives Records FoundNo Advanced Directives Records FoundNo Advanced Directives Records FoundNo Advanced Directives Records Found Reason for Referral Specialty Diagnoses / Procedures Referred By Contac t Referred To Contact Neurology Diagnoses Lumbar radiculopathy Procedures Nerve Block Maximo Nguyen, LOUISE [address] [address] Referral ID Status Reason Start Date Expiration Date Visits Re quested Visits Authorized [id number] Closed 07/07/2024 01/03/2025 1 1 Specialty Diagnoses / Procedures Referred By Contac t Referred To Contact Diagnoses Lumbar radiculopathy DDD (degenerative disc disease), lumbar Gait instability Procedures MR lumbar spine wo contrast Maximo Nguyen, LOUISE [address] [address] [facility] [address] [place] [address] Phone: [phone] Referral ID Status Reason Start Date Expiration Date V isits Requested Visits Authorized [id number] Pending Review 07/07/2024 01/03/2025 1 1 Specialty Diagnoses / Procedures Referred By Contac t Referred To Contact Home Health Services Diagnoses Lumbar radiculopathy DDD (degenerative disc disease), lumbar Polyneuropathy Gait instability Maximo Nguyen, LOUISE [address] [place] [address] [facility] [address] [facility] [address] [place] [address] Referral ID Status Reason Start Date Expiration Date Visits Requested Visits Authorized [id number] Pending Review Specialty Services Required 07/07/2024 09/05/2024 [id number] Specialty Diagnoses / Procedures Referred By Contac t Referred To Contact Diagnoses Rectal bleeding Marizol Hightower DO [address] [place] [address] Referral ID Status Reason Start Date Expiration Date Visits Re quested Visits Authorized [id number] Closed 1 1 Additional Source Comments (unrecognized sect ion and content) No Status Records FoundNo Status Records FoundNo Status Records FoundNo Status Records FoundNo Status Records Found INFORMATION SOURCE (unrecogn ized section and content) DATE CREATED AUTHOR 04/15/2018 [facility] DATE CREATED AUTHOR AUTHOR'S ORGANIZ ATION 04/15/2018 [facility] DATE CREATED AUTHOR AUTHOR'S ORGANIZ ATION 02/14/2023 [facility] DATE CREATED AUTHOR AUTHOR'S ORGANIZ ATION 03/12/2024 [facility] DATE CREATED AUTHOR AUTHOR'S ORGANIZ ATION 12/16/2024 [facility] EPIC Care Teams (unrecognized sec tion and content) [employer] Operator Relationship Specialty Start Date End Date Mitul Richmond MD [address] [facility] [address] [place] [address] PCP - ACO Reach 03/13/23 America Christianson PA [address] [facility] [address] [place], [place] [id number] Physician Financial Aid Officer Family Medicine 11/03/23 [employer] Operator Relationship Specialty Start Date End Date Mitul Richmond MD [address] [facility] [address] [place] [address] PCP - ACO Reach 03/13/23 Mitul Richmond MD [address] [facility] [address] [place] [address] PCP - General Internal Medicine 07/07/24 America Christianson PA [address] [facility] [address] [place] [address] Physician Financial Aid Officer Family Medicine 11/03/23 [employer] Machine Operator Relationship Specialty Start Date End Date Mitul Richmond MD [address] [facility] [address] [place] [address] PCP - ACO Reach 03/13/23 Mitul Richmond MD [address] [facility] [address] [place] [address] PCP - General Internal Medicine 07/07/24 America Christianson PA [address] [facility] [address] [place] [address] Physician Financial Aid Officer Family Medicine 11/03/23 [employer] Machine Operator Relationship Specialty Start Date End Date Mitul Richmond MD [address] [facility] [address] [place] [address] PCP - ACO Reach 03/13/23 Mitul Richmond MD [address] [facility] [address] [place] [address] PCP - General Internal Medicine 07/07/24 America Christianson PA [address] [facility] [address] [place] [address] Physician Financial Aid Officer Family Medicine 11/03/23 [employer] Operator Relationship Specialty Start Date End Date Mitul Richmond MD [address] [facility] [address] [place] [address] PCP - ACO Reach 03/13/23 Mitul Richmond MD [address] [facility] [address] [place] [address] PCP - General Internal Medicine 07/07/24 America Christianson PA [address] [facility] [address] [place] [address] Physician Financial Aid Officer Family Medicine 11/03/23 [employer] Machine Operator Relationship Specialty Start Date End Date Mitul Richmond MD [address] [facility] [address] [place] [address] PCP - ACO Reach 03/13/23 Mitul Richmond MD [address] [facility] [address] [place] [address] PCP - General Internal Medicine 07/07/24 America Christianson PA [address] [facility] [address] [place] [address] Physician Financial Aid Officer Family Medicine 11/03/23 [employer] Machine Operator Relationship Specialty Start Date End Date Mitul Richmond MD [address] [facility] [address] [place] [address] PCP - ACO Reach 03/13/23 Mitul Richmond MD [address] [facility] [address] [place] [address] PCP - General Internal Medicine 07/07/24 America Christianson, PA [address] [facility] [address] [place] [address] Physician Financial Aid Officer Family Medicine 11/03/23 [employer] Machine Operator Relationship Specialty Start Date End Date Mitul Richmond MD [address] [facility] [address] [place] [address] PCP - ACO Reach 03/13/23 Mitul Richmond MD [address] [facility] [address] [place] [address] PCP - General Internal Medicine 07/07/24 America Christianson PA [address] [facility] [address] [place] [address] Physician Financial Aid Officer Family Medicine 11/03/23 [employer]ior Machine Operator Relationship Specialty Start Date End Date Mitul Richmond MD [address] [facility] [address] [place] [address] PCP - ACO Reach 03/13/23 Mitul Richmond MD [address] [facility] [address] [place] [address] PCP - General Internal Medicine 07/07/24 America Christianson PA [address] [facility] [address] [place] [address] Physician Financial Aid Officer Family Medicine 11/03/23 [employer]ior Machine Operator Relationship Specialty Start Date End Date Mitul Richmond MD [address] [facility] [address] [place] [address] PCP - ACO Reach 03/13/23 Mitul Richmond MD [address] [facility] [address] [place] [address] PCP - General Internal Medicine 07/07/24 America Christianson PA [address] [facility] [place] [address] Physician Financial Aid Officer Family Medicine 11/03/23 [employer]ior Machine Operator Relationship Specialty Start Date End Date Mitul Richmond MD [address] [facility] [address] [place] [address] PCP - ACO Reach 03/13/23 Mitul Richmond MD [address] [facility] [address] [place] [address] PCP - General Internal Medicine 07/07/24 America Christianson PA [address] [facility] [address] [place] [address] Physician Financial Aid Officer Family Medicine 11/03/23 [employer] Machine Operator Relationship Specialty Start Date End Date Mitul Richmond MD [address] [facility] [place] [address] PCP - ACO Reach 03/13/23 America Christianson PA [address] [place] [place] [address] Physician Financial Aid Officer Family Medicine 11/03/23 [employer]ior Machine Operator Relationship Specialty Start Date End Date Mitul Richmond MD [address] [facility] [place] [address] PCP - ACO Reach 03/13/23 America Christianson PA [address] [facility] [address] [place] [address] Physician Financial Aid Officer Family Medicine 11/03/23 Ex[employer]ior Machine Operator Relationship Specialty Start Date End Date Mitul Richmond MD [address] [facility] [address] [place] [address] PCP - ACO Reach 03/13/23 Mitul Richmond MD [address] [facility] [address] [place] [address] PCP - General Internal Medicine 07/07/24 America Christianson PA [address] [facility] [address] [place] [address] Physician Financial Aid Officer Family Medicine 11/03/23 Excelsior Machine Operator Relationship Specialty Start Date End Date Mitul Richmond MD [address] [facility] [address] [place] [address] PCP - ACO Reach 03/13/23 Mitul Richmond MD [address] [facility] [address] [place] [address] PCP - General Internal Medicine 07/07/24 America Christianson PA [address] [facility] [address] [place] [address] Physician Financial Aid Officer Family Medicine 11/03/23 Ex[employer]ior Machine Operator Relationship Specialty Start Date End Date Mitul Richmond MD [address] [facility] [address] [place] [address] PCP - ACO Reach 03/13/23 America Christianson PA [address] [facility] [place] [address] Physician Financial Aid Officer Family Medicine 11/03/23 Ex[employer]ior Machine Operator Relationship Specialty Start Date End Date Mitul Richmond MD [address] [facility] [address] [place] [address] PCP - ACO Reach 03/13/23 America Christianson PA [address] [facility] [address] [place] [address] Physician Financial Aid Officer Family Medicine 11/03/23 Ex[employer]ior Machine Operator Relationship Specialty Start Date End Date Mitul Richmond MD [address] [facility] [place] [address] PCP - ACO Reach 03/13/23 Mitul Richmond MD [address] [facility] [address] [place] [address] PCP - General Internal Medicine 07/07/24 America Christianson PA [address] [facility] [place] [address] Physician Financial Aid Officer Family Medicine 11/03/23 Ex[employer]ior Machine Operator Relationship Specialty Start Date End Date Mitul Richmond MD [address] [facility] [address] [place] [address] PCP - ACO Reach 03/13/23 Mitul Richmond MD [address] [facility] [address] [place] [address] PCP - General Internal Medicine 07/07/24 America Christianson PA [address] [facility] [address] [place] [address] Physician Financial Aid Officer Family Medicine 11/03/23 Venita Rosas, CODY Registered Nurse Family Medicine 11/12/24 [employer]ior Machine Operator Relationship Specialty Start Date End Date Mitul Richmond MD [address], [facility] [address] [place] [address] PCP - General Internal Medicine 03/02/24 [employer]ior Machine Operator Relationship Specialty Start Date End Date Mitul Richmond MD [address] [facility] [place] [address] PCP - ACO Reach 03/13/23 Mitul Richmond MD [address] [facility] [address] [place] [address] PCP - General Internal Medicine 07/07/24 America Christianson PA [address] [facility] [place] [address] Physician Financial Aid Officer Family Medicine 11/03/23 Venita Rosas, CODY Registered Nurse Family Medicine 11/12/24 Excelsior Machine Operator Relationship Specialty Start Date End Date Mitul iRchmond MD [address] [place] [address] PCP - ACO Reach 03/13/23 Mitul Richmond MD [address] [place] [address] PCP - General Internal Medicine 07/07/24 America Christianson PA [address] [facility] [place] [address] Physician Financial Aid Officer Family Medicine 11/03/23 Venita Rosas, CODY Registered Nurse Family Medicine 11/12/24 Ex[employer]ior Machine Operator Relationship Specialty Start Date End Date Mitul Richmond MD [address] [place] [address] PCP - ACO Reach 03/13/23 Mitul Richmond MD [address] [facility] [address] [place], [place] [id number] PCP - General Internal Medicine 07/07/24 America Christianson PA [address] [place] [address] [place] [address] Physician Financial Aid Officer Family Medicine 11/03/23 Venita Rosas, RN Registered Nurse Family Medicine 11/12/24 Reason for Visit (unrecogniz ed section and content) Reason Comments Med Refill Reason Onset Date Comments Med Refill 07/26/2024 Reason Onset Date Comments Med Refill 07/28/2024 Reason Onset Date Comments Med Refill 08/16/2024 Reason Onset Date Comments Med Refill 08/30/2024 Reason Comments Medicare Annual Wellness Visit Subsequen t nasal drainage Pt states he has steven al drainage and some post nasal drainage would like to be checked to see if he has a sinus infection. Started about a week ago. Reason Onset Date Comments Med Refill 09/22/2024 Reason Onset Date Comments Med Refill 07/05/2024 Reason Comments Seizures Back Pain Gait Problem Tremors Reason Comments Back Pain Tremors Seizures Gait Problem Polyneuropathy Reason Comments Toenail Care NON DM NAIL Reason Onset Date Comments Med Refill 10/25/2024 Reason Onset Date Comments Med Refill 10/27/2024 Reason Comments GI Bleeding GI bleed, rectal pro lapse, [facility] ER 02/29/24 Reason Onset Date Comments Med Refill 12/20/2024 FOR RECORDS PERTAINING TO PATIENTS WHO ARE [...] BE BASED ON THE PRIMARY CLINICAL RECORDS. [employer] provides no warranty or guarantee of the accuracy or completeness of information in this document.
[2025-01-06] MEDS: KETOROLAC TROMETHAMINE 30 MG/ML VIAL 15 MG IM (13:01)
--- NOTE | 2025-01-06 13:07 | ED_ITS ---
HPI HPI - Extremity Injury (Lower) General Chief Complaint: Extremity Injury, Lower Stated Complaint: FALL LEFT KNEE PAIN Time Seen by Provider: 01/06/25 12:44 Source: patient Mode of arrival: ambulance Limitations: no limitations History of Present Illness HPI Narrative: The patient brought to us by the EMS with left knee pain that started yesterday after he had a fall, and showed that he was trying to sit onto the chair when he injured his leg, although the patient mentioned that he did not fall forward, but apparently flex his left knee and fell to the side, without hitting his head or losing consciousness He had pain when putting weight on his leg Related Data Home Medications ?Medication ?Instructions ?Recorded ?Confirmed albuterol sulfate 90 mcg/actuation 2 inh inhalation Q4H PRN wheezing 06/02/23 02/29/24 aerosol inhaler aripiprazole 2 mg tablet 2 mg PO DAILY 06/02/23 02/29/24 epinephrine 0.15 mg/0.15 mL 0.15 ml subcut PRN allergic 06/02/23 auto-injector (for 33 to 66 lb reaction patients) fluticasone propionate 50 2 spray intranasal DAILY 06/02/23 02/29/24 mcg/actuation nasal spray,suspension hydrocodone 10 mg-acetaminophen 2 tab PO Q6H PRN pain 06/02/23 02/29/24 325 mg tablet pantoprazole 40 mg tablet,delayed 40 mg PO DAILY 06/02/23 02/29/24 release phenobarbital 32.4 mg tablet 32.4 mg PO TID 06/02/23 02/29/24 phenytoin sodium extended 100 mg 100 mg PO Q12H 06/02/23 02/29/24 capsule pregabalin 150 mg capsule 150 mg PO TID 06/02/23 02/29/24 primidone 50 mg tablet 100 mg PO Q12H 06/02/23 02/29/24 simvastatin 40 mg tablet 40 mg PO BEDTIME 06/02/23 02/29/24 tizanidine 4 mg tablet 8 mg PO Q8H 06/02/23 02/29/24 venlafaxine 150 mg 150 mg PO DAILY 06/02/23 02/29/24 capsule,extended release 24 hr albuterol sulfate 90 mcg/actuation 2 puff inhalation Q4H PRN 06/04/23 02/29/24 aerosol inhaler bronchospasm aripiprazole 2 mg tablet 2 mg PO QDAY 06/04/23 06/09/23 diphenhydramine HCl 50 mg capsule 50 mg PO QPM PRN sleep 06/04/23 06/09/23 (Banophen) fluticasone propionate 50 2 spray intranasal QDAY 06/04/23 06/09/23 mcg/actuation nasal spray,suspension hydrocodone 10 mg-acetaminophen 2 tab PO Q6H PRN pain 06/04/23 06/09/23 325 mg tablet pantoprazole 40 mg tablet,delayed 40 mg PO QDAY 06/04/23 06/09/23 release phenobarbital 32.4 mg tablet 32.4 mg PO Q8H 06/04/23 06/09/23 phenytoin sodium extended 100 mg 100 mg PO Q8H 06/04/23 06/09/23 capsule pregabalin 150 mg capsule 150 mg PO Q8H 06/04/23 06/09/23 tamsulosin 0.4 mg capsule 0.4 mg PO QDAY 06/04/23 02/29/24 diphenhydramine HCl 25 mg capsule 25 mg PO BEDTIME PRN sleep 06/09/23 02/29/24 (Banophen) Previous Rx's ?Medication ?Instructions ?Recorded hydrocodone 5 mg-acetaminophen 325 1 tab PO TID PRN pain 5 days #20 06/02/23 mg tablet tabs doxycycline hyclate 100 mg tablet 100 mg PO BID 10 days #20 tabs 10/30/23 erythromycin 5 mg/gram (0.5 %) eye 1 applic ophthalmic (eye) QID #3.5 10/30/23 ointment grams furosemide 20 mg tablet (Lasix) 20 mg PO DAILY #5 tabs 10/30/23 methylprednisolone 4 mg tablets in See Rx Instructions .Route 10/30/23 a dose pack (Medrol (Justin)) .COMPLEX #21 ea meloxicam 7.5 mg tablet 7.5 mg PO DAILY PRN pain #14 tabs 01/06/25 Allergies Allergy/AdvReac Type Severity Reaction Status Date / Time amoxicillin (From Augmentin) Allergy Unknown Rash Verified 01/06/25 12:38 cefaclor (From Ceclor) Allergy Unknown Hives Verified 01/06/25 12:38 clavulanic acid (From Allergy Unknown Rash Verified 01/06/25 12:38 Augmentin) duloxetine (From Cymbalta) Allergy Unknown Unknown Verified 01/06/25 12:38 bee venom protein (honey bee) Allergy Anaphylaxis Verified 01/06/25 12:38 carbamazepine (From Tegretol) Allergy Weakness Verified 01/06/25 12:38 Opioid HPI Opioid Management Most Recent Pain and Opioid Data: Last Pain Scale 10 01/06/25 13:01 01/06/25 Last MAR Pain Assessment 01/06/25 13:01 Review of Systems ROS Status of ROS 10 or more systems reviewed and unremark able except as noted in history and below [facility] Medical History (Updated 01/06/25 @ 13:50 by Kelly Henry MD) Epilepsy ?G40.909 - Epilepsy, unspecified, not intractable, without status epilepticus (ICD-10) Postoperative nausea and vomiting ?R11.2 - Nausea with vomiting, unspecified (ICD-10) ?Z98.890 - Other specified postprocedural states (ICD-10) Humerus fracture ?S42.309A - Unspecified fracture of shaft of humerus, unspecified arm, initial encounter for closed fracture (ICD-10) Diabetes ?E11.9 - Type 2 diabetes mellitus without complications (ICD-10) High cholesterol ?E78.00 - Pure hypercholesterolemia, unspecified (ICD-10) GERD (gastroesophageal reflux disease) ?K21.9 - Gastro-esophageal reflux disease without esophagitis (ICD-10) IBS (irritable bowel syndrome) ?K58.9 - Irritable bowel syndrome without diarrhea (ICD-10) Migraine ?G43.909 - Migraine, unspecified, not intractable, without status migrainosus (ICD-10) Seizures ?R56.9 - Unspecified convulsions (ICD-10) Vision loss ?H54.7 - Unspecified visual loss (ICD-10) Bronchitis ?J40 - Bronchitis, not specified as acute or chronic (ICD-10) Anxiety ?F41.9 - Anxiety disorder, unspecified (ICD-10) Depression ?F32.A - Depression, unspecified (ICD-10) Hematochezia ?K92.1 - Melena (ICD-10) Arthritis ?M19.90 - Unspecified osteoarthritis, unspecified site (ICD-10) Back pain ?M54.9 - Dorsalgia, unspecified (ICD-10) Neuropathy ?G62.9 - Polyneuropathy, unspecified (ICD-10) Chickenpox ?B01.9 - Varicella without complication (ICD-10) Measles ?B05.9 - Measles without complication (ICD-10) Mumps ?B26.9 - Mumps without complication (ICD-10) Hernia of anterior abdominal wall ?K43.9 - Ventral hernia without obstruction or gangrene (ICD-10) Inguinal hernia ?K40.90 - Unilateral inguinal hernia, without obstruction or gangrene, not specified as recurrent (ICD-10) Fusion of spine ?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 - Fusion of spine, site unspecified (ICD-10) H/O reduction of closed fracture ?Z87.81 - Personal history of (healed) traumatic fracture (ICD-10) Retinal detachment ?H33.20 - Serous retinal detachment, unspecified eye (ICD-10) Chronic sinusitis ?J32.9 - Chronic sinusitis, unspecified (ICD-10) Rosacea ?L71.9 - Rosacea, unspecified (ICD-10) Colonoscopy planned (03/21/21) Surgical History (Updated 06/13/23 @ 07:45 by Adriane [place]) S/P cataract extraction and insertion of intraocular lens ?Z98.49 - Cataract extraction status, unspecified eye (ICD-10) ?Z96.1 - Presence of intraocular lens (ICD-10) H/O nasal septoplasty ?Z98.890 - Other specified postprocedural states (ICD-10) Hx of tonsillectomy ?Z90.89 - Acquired absence of other organs (ICD-10) History of cholecystectomy ?Z90.49 - Acquired absence of other specified parts of digestive tract (ICD- 10) Hx of anterior cruciate ligament tear reconstruction ?Z98.890 - Other specified postprocedural states (ICD-10) History of bunionectomy ?Z98.890 - Other specified postprocedural states (ICD-10) Family History (System 06/13/23 @ 07:45 by Adriane Joshua) Aunt Family history not known due to adoption Mother Family history of CHF (congestive heart failure) Family history of COPD (chronic obstructive pulmonary disease) Family history of heart disease Family history of hypertension Social History Within the past year, how often did you have a drink containing alcohol: never Score interpretation: A score less than 4 is consistent with normal alcohol consumption. Smoking status: Current every day smoker What tobacco products do you use: cigars Non-prescribed substance use: denies use Previous occupational history: DISABLED Highest level of school completed/degree received: Associate degree: academic program Little interest or pleasure in doing things: not at all Feeling down, depressed, or hopeless: not at all Exam Narrative Exam Narrative: Nurses notes and vital signs reviewed and patient is not hypoxic. General: Well-appearing and in no apparent distress. Skin: Warm, dry, no pallor noted. No rash. Head: Normocephalic, atraumatic. Neck: Supple, non-tender. Musculoskeletal: normal ROM, no calf or popliteal tenderness, patient have mild effusion of the left knee, mostly around the peripatellar area no ecchmosis , negative anterior and posterior drawer signs Neurological: A&O x4. No cranial nerve dysfunction observed. No truncal ataxia. . Sensation intact. Psychiatric: Cooperative and interactive. Normal mood and affect. Constitutional Vital Signs, click to edit/add: Last Vital Signs Temp 97.9 F 01/06/25 12:39 Pulse 63 01/06/25 12:39 Resp 16 01/06/25 12:39 BP 133/74 01/06/25 12:39 Pulse Ox 100 01/06/25 12:39 O2 Del Method Room Air 01/06/25 12:39 Course Vital Signs Vital signs: Vital Signs Temperature 97.9 F 01/06/25 12:39 Pulse Rate 63 01/06/25 12:39 Respiratory Rate 16 01/06/25 12:39 Blood Pressure 133/74 01/06/25 12:39 Pulse Oximetry 100 01/06/25 12:39 Oxygen Delivery Method Room Air 01/06/25 12:39 Temperature 97.9 F 01/06/25 12:39 Pulse Rate 63 01/06/25 12:39 Respiratory Rate 16 01/06/25 12:39 Blood Pressure 133/74 01/06/25 12:39 Pulse Oximetry 100 01/06/25 12:39 Oxygen Delivery Method Room Air 01/06/25 12:39 MDM - Extremity Injury (Lower) MDM Narrative Medical decision making narrative: X-ray of the patient left knee showed no acute pathology except for small knee effusion Michael wrap applied The patient instructed about keeping his knee extended, the patient also to elevate and rest his knee Patient was feeling better after being treated with Toradol in the ER he was able to ambulate with no difficulty The patient was discharged home with Mobic in addition to rest and elevation patient to follow-up with his primary care for further evaluation he is to come back in case of new symptoms I explained to the patient that he might need referral to orthopedic in case of continuous pain The patient is to follow up with primary care physician in next 2-3 days or to return to the emergency department should any of the signs or symptoms worsen or new symptoms develop. The patient agrees with the following Diagnosis and Treatment plan and the patient will be discharged home. Discharge Plan Discharge Chief Complaint: Extremity Injury, Lower Clinical Impression: Contusion of knee Patient Disposition: Home, Self-Care Time of Disposition Decision: 13:49 Condition: Good Prescriptions / Home Meds: New meloxicam 7.5 mg tablet 7.5 mg PO DAILY PRN (Reason: pain ) Qty: 14 0RF No Action albuterol sulfate 90 mcg/actuation HFA aerosol inhaler 2 inh INHALATION Q4H PRN (Reason: wheezing) aripiprazole 2 mg tablet 2 mg PO DAILY epinephrine 0.15 mg/0.15 mL auto-injector 0.15 ml subcut PRN (Reason: allergic reaction) fluticasone propionate 50 mcg/actuation spray,suspension 2 spray INTRANASAL DAILY hydrocodone-acetaminophen 10-325 mg tablet 2 tab PO Q6H PRN (Reason: pain) pantoprazole 40 mg tablet,delayed release (DR/EC) 40 mg PO DAILY phenobarbital 32.4 mg tablet 32.4 mg PO TID phenytoin sodium extended 100 mg capsule 100 mg PO Q12H pregabalin 150 mg capsule 150 mg PO TID primidone 50 mg tablet 100 mg PO Q12H simvastatin 40 mg tablet 40 mg PO BEDTIME tizanidine 4 mg tablet 8 mg PO Q8H venlafaxine 150 mg capsule,extended release 24hr 150 mg PO DAILY hydrocodone-acetaminophen 5-325 mg tablet 1 tab PO TID PRN (Reason: pain) 5 Days Qty: 20 0RF albuterol sulfate 90 mcg/actuation HFA aerosol inhaler 2 puff INHALATION Q4H PRN (Reason: bronchospasm) aripiprazole 2 mg tablet 2 mg PO QDAY fluticasone propionate 50 mcg/actuation spray,suspension 2 spray INTRANASAL QDAY hydrocodone-acetaminophen 10-325 mg tablet 2 tab PO Q6H PRN (Reason: pain) pantoprazole 40 mg tablet,delayed release (DR/EC) 40 mg PO QDAY phenobarbital 32.4 mg tablet 32.4 mg PO Q8H phenytoin sodium extended 100 mg capsule 100 mg PO Q8H pregabalin 150 mg capsule 150 mg PO Q8H tamsulosin 0.4 mg capsule 0.4 mg PO QDAY diphenhydramine HCl [Banophen] 50 mg capsule 50 mg PO QPM PRN (Reason: sleep) diphenhydramine HCl [Banophen] 25 mg capsule 25 mg PO BEDTIME PRN (Reason: sleep) Rx Instructions: 25 mg orally PRN; methylprednisolone [Medrol (Justin)] 4 mg tablets,dose pack See Rx Instructions .ROUTE .COMPLEX Qty: 21 0RF Rx Instructions: Taper as directed doxycycline hyclate 100 mg tablet 100 mg PO BID 10 Days Qty: 20 0RF furosemide [Lasix] 20 mg tablet 20 mg PO DAILY Qty: 5 0RF erythromycin 5 mg/gram (0.5 %) ointment 1 applic ophthalmic (eye) QID Qty: 3.5 0RF Print Language: Kazakh Instructions: Contusion in Adults (ED) Referrals: HARPER PERRY [Primary Care Provider] - 1 week
== END 2025-01-06 14:56 | disposition home or self-care (01) ==
PROVIDERS: Emergency Provider Emergency Medicine; PCP Internal Medicine
DX: S80.02XA Contusion of left knee, initial encounter (principal); F17.290 Nicotine dependence, other tobacco product, uncomplicated; Z90.49 Acquired absence of other specified parts of digestive tract; W19.XXXA Unspecified fall, initial encounter
CPT/HCPCS: 73564; 96372; 99284; J1885

== ENCOUNTER 2025-06-17 12:32 | Outpatient (OUT) | payer MEDICARE, MEDICAID, SELFPAY ==
--- OUTSIDE RECORDS SUMMARY | 2024-03-22 05:30 | XMS_ITS ---
Author Organization [facility] Address [address] [place] [address] Care Team Providers Care Cathode Maker Name Role Phone UNASSIGNED, UNASSIGNED Primary Care Provider Xiomara vailaMynor Young Unavailable [phone] REASON FOR VISIT Left elbow fx Encounters Encounter Location Date Provider Diagnosis [facility] Office [address] [place] [address] [address] [place] [address] 03/22/2024 Mynor Armstrong Displaced simple supracondylar fracture without intercondylar fracture of left humerus, subsequent encounter for fracture with routine healing S42.412D Assessments Encounter Date Diagnosis (ICD Code) Assessment Notes Treatment Notes Treatment Clinical Notes Section Notes 03/22/2024 Displaced simple supracondylar fracture without intercondylar fracture of left humerus, subsequent encounter for fracture with routine healing (ICD-10 - S42.412D) Plan Of Treatment Pending Test Test Name Order Date SCC- ELBOW 3 VIEW LEFT [id number] 03/22/2024 Progress Notes * DUTCH MONIQUE SR ADOB:1954 (69 yo M)Acc No.[id number]:03/22/2024 Patient: Jm DUTCH RAYGOZA SR Provider: Jm Armstrong MD :1955 A ge:68 Y S ex:Male Date:03/22/2024 Address:[address] [place], [place] Pcp:UNASSIGNED UNASSIGNED Subjective: * Chief Complaints: * 1 . Left elbow fx. * Medical History: Objective: * Vitals: Assessment: * Assessment: 1. D isplaced simple supracondylar fracture without intercondylar fracture of left humerus, subsequent encounter for fracture with routine healing - S42.412D Plan: * Treatment: Forms: * Images: * Electronic signature of Ben Armstrong MD on 06/17/2025 at 12:35 PM EDT Sign off status: Pending * Provider: Jm Arsmtrong MD Date: 0 03/22/2024 Generated for Karan rosas/Lance/Rjitting on: 0 06/17/2025 12:35 PM EDT
--- OUTSIDE RECORDS SUMMARY | 2025-06-15 14:00 | XMS_ITS | Encounter Summary ---
Author Organization [facility] Address [address] [facility] [place] [address] Care Team Providers Care Book Binder Name Role Phone Mitul Richmond MD Unavailable [phone] America Mercado Unavailable [phone] Mitul Richmond MD Primary Care Provider [phone] Venita Rosas RN Unavailable [phone] Reason for Visit * Reason Comments Med Refill Phenobarbitol to [facility], looks like it was sent to [facility] and needs hydrocodone. Medication Question He is not taking Heydi ntix d/t he was having suicidal thoughts. Encounter Details Date Type Department Care Team (Late st Contact Info) Description 06/15/2025 2:00 PM EDT Office Visit [facility] [address] [facility] [address] [place] [address] America Mercado PA 112 [facility] [address] [place], [place] [id number] Degenerative disc disease at L5-S1 level (Primary Dx); Localization-related epilepsy (HCC); Tobacco dependence; Falls frequently; Gait instability; Panlobular emphysema (HCC) Social History Tobacco Use Types Packs/Day Years Used Date Smoking Tobacco: Every Day Cigarettes 0.3 15 Smokeless Tobacco: Never Comments:Smoking 7 cigars a day as of 05/25/2024 and vapes. H/o 1 PPD Alcohol Use Standard Drinks/Week Comments Never 0 (1 standard drink = 0.6 oz pur e alcohol) PHQ-2 Answer Date Recorded Patient Health Questionnaire-2 Score 0 06/15/2025 Sex and Gender Information Value Date Recorded Sex Assigned at Not on file Legal Sex Male 7:20 PM EDT Gender Identity Not on file Sexual Orientation Not on file documented as of this encounter Last Filed Vital Signs Vital Sign Reading Time Taken Comments Blood Pressure 132/84 06/15/2025 1:50 PM EDT Pulse 78 06/15/2025 1:50 PM EDT Temperature - - Respiratory Rate 16 06/15/2025 1:50 PM EDT Oxygen Saturation 98% 06/15/2025 1:50 PM EDT Inhaled Oxygen Concentration - - Weight 69.8 kg (153 lb 12.8 oz) 06/15/2025 1:50 PM EDT Height 175.3 cm (5' 9 ) 06/15/2025 1:50 PM EDT Body Mass Index 22.71 06/15/2025 1:50 PM EDT documented in this encounter Functional Status * Over the past 2 weeks, how often have you been bothered by any of the following problems? Question Answer Date of Assessment Author Little interest or pleasure in doing things Not at all 06/15/2025 1:44 PM EDT Mine Lynn LP N Feeling down, depressed, or hopeless Not at all 06/15/2025 1:44 PM EDT Mine Lynn LP N Patient Health Questionnaire -2 Score 0 06/15/2025 1:44 PM EDT Mine Lynn LP N documented as of this encounter Progress Notes * FRANCO Reyna - 06/15/2025 2:00 PM EDT Images from the original note were not included. HPI Med Refill Additional comments: [facility] sent to [facility] and needs hydrocodone. Medication Question Additional comments: He is not taking Chantix d/t he was having suicidal thoughts. Last edited by Mine Lynn LPN on 06/15/2025 1:50 PM. Subjective Patient ID: Ricardo Sanchez SR is a 69 y.o. male who presents for back pain. Ricardo is present today for follow up back pain. He is currently on Hydrocodone as needed and is working well for him. Is down to 8 cigarettes a day. Used to smoke 1.5 PPD. Fell again today. Fell onto his laundry basket. Thinks it is due to his feet going numb due to neuropathy. Did not hit his head or sustain any injury. Does go to PT. Having an MRI on his back and brain on Friday. They are looking to see if he is a surgical candidate. Uses a Rolator when he walks. Over the past 2 weeks, how often have you been bothered by any of the following problems? Little interest or pleasure in doing things: Not at all (currently on medication) Feeling down, depressed, or hopeless: Not at all (currently on medication) Patient Health Questionnaire-2 Score: 0 Current Outpatient Medications on File Prior to Visit Medication Sig Dispense Refill acetaminophen (Tylenol Extra Strength) 500 MG tablet Take 500 mg by mouth every 6 (six) hours if needed for mild pain albuterol HFA 90 mcg/act inhaler Inhale 2 puffs every 4 (four) hours if needed for wheezing 18 g 11 ARIPiprazole (Abilify) 2 MG tablet TAKE 1 TABLET BY MOUTH DAILY 90 tablet 11 Breztri Aerosphere 160-9-4.8 MCG/ACT aerosol INHALE TWO (2) PUFFS IN THE MORNING AND INHALE TWO (2)PUFFS BEFORE BEDTIME 10.7 g 11 diphenhydrAMINE (BENADryl) 25 MG capsule Take 25 mg by mouth at bedtime EPINEPHrine (AUVI-Q) 0.15 mg/0.15 mL IJ solution auto-injector injection Inject 0.3 mL (0.3 mg) into the shoulder, thigh, or buttocks if needed for anaphylaxis fluticasone (Flonase) 50 MCG/ACT nasal spray INSTILL TWO (2) SPRAYS IN EACH NOSTRIL DAILY 16 g 10 furosemide (Lasix) 20 MG tablet Take 20 mg by mouth Daily lisinopril 20 MG tablet TAKE 1 TABLET (20MG) BY MOUTH AT NOON BEFORE A MEAL 30 tablet 10 meloxicam (Mobic) 7.5 MG tablet Take 7.5 mg by mouth Daily as needed for mild pain or moderate painQTY 14 tabs (Patient not taking: Reported on 03/15/2025) pantoprazole (ProtoNix) 40 MG EC tablet TAKE 1 TABLET BY MOUTH EVERY MORNING 30 tablet 11 phenytoin ER (Dilantin) 100 MG capsule TAKE ONE (1) CAPSULE BY MOUTH IN THE MORNING, IN THE EVENING, AT BEDTIME 90 capsule 10 pregabalin (Lyrica) 150 MG capsule Take 1 capsule (150 mg) by mouth in the morning and 1 capsule (150 mg) in the evening and 1 capsule (150 mg) before bedtime. 90 capsule 1 primidone (Mysoline) 50 MG tablet TAKE 2 TABLETS BY MOUTH IN THE MORNING, TAKE 1 TABLET IN THE AFTERNOON, AND TAKE 2 TABLETS AT BEDTIME 150 tablet 1 sildenafil (Viagra) 50 MG tablet Take 1 tablet (50 mg) by mouth Daily as needed for erectile dysfunction 8 tablet 2 simvastatin (Zocor) 40 MG tablet TAKE 1 TABLET BY MOUTH IN THE MORNING 30 tablet 10 tamsulosin (Flomax) 0.4 MG 24 hr capsule TAKE 1 CAPSULE BY MOUTH EVERY MORNING 100 capsule 3 tiZANidine (Zanaflex) 4 MG tablet TAKE 2 TABLETS BY MOUTH EVERY 8 HOURS NEEDED FOR MUSCLE IMHUHT84 tablet 10 venlafaxine XR (Effexor XR) 150 MG 24 hr capsule TAKE 1 CAPSULE BY MOUTH ONCE DAILY 90 capsule 11 venlafaxine XR (Effexor XR) 75 MG 24 hr capsule Take 1 capsule (75 mg) by mouth Daily 100 capsule 3 [DISCONTINUED] HYDROcodone-acetaminophen (Orlando) 10-325 MG tablet Take 2 tablets by mouth every 6 (six) hours if needed for severe pain for up to 15 days 120 tablet 0 [DISCONTINUED] PHENobarbital (Luminal) 32.4 MG tablet TAKE 1 TABLET BY MOUTH THREE TIMES DAILY (IN THE MORNING, IN THE EVENING, and BEFORE bedtime) 90 tablet 5 [DISCONTINUED] PHENobarbital (Luminal) 32.4 MG tablet Take 1 tablet (32.4 mg) by mouth in the morning and 1 tablet (32.4 mg) in the evening and 1 tablet (32.4 mg) before bedtime. 90 tablet 2 No current facility-administered medications on file prior to visit. I have reviewed and reconciled the history and medication list with the patient today. Allergies Allergen Reactions Chantix [Varenicline] Suicidal Ideations Duloxetine Unknown Anger, doesn't know where he [...] of right eye Chronic cholecystitis 2009 Convulsions ([facility]) Disturbance of skin sensation Enthesopathy of hip region Headache History of degenerative disc disease Hypertension Left supracondylar humerus fracture 06/02/2023 Lesion of ulnar nerve Lumbar radiculopathy Lumbar spondylosis Malaise and fatigue Migraine Neck injury 05/2017 following a fall on railing Pain in limb Presbyopia Pseudophakia of right eye Radiculopathy, lumbosacral region Seizure disorder ([facility]) Tremor Type 2 diabetes mellitus ([facility]) Past Surgical History: Procedure Laterality Date BACK SURGERY 1981 GALL BLADDER INTRAOCULAR LENS INSERTION Right 06/2018 KNEE SURGERY Right repair LUMBAR TRANSFORAMINAL EPIDURAL STEROID INJECTION Bilateral 12/26/2020 L4 LUMBAR TRANSFORAMINAL EPIDURAL STEROID INJECTION 12/17/2022 L4 NOSE SURGERY NASAL SURGERY ORIF HUMERUS FRACTURE Left 06/09/2023 VA LAP,CHOLECYSTECTOMY 2008 Disease:Chronic cholecystitis SHOULDER SURGERY Left 06/2023 TOTAL KNEE ARTHROPLASTY 1981 Visit Vitals BP 132/84 Pulse 78 Resp 16 Ht 5' 9 Wt 153 lb 12.8 oz SpO2 98% BMI 22.71 kg/m?? Smoking Status Every Day BSA 1.84 m?? Review of Systems Constitutional: Negative for chills, fatigue and fever. Respiratory: Negative for cough, shortness of breath and wheezing. Cardiovascular: Negative for chest pain, palpitations and leg swelling. Gastrointestinal: Negative for abdominal pain, constipation, diarrhea, nausea and vomiting. Musculoskeletal: Positive for arthralgias, back pain and gait problem. Skin: Negative [...] movement present. No wheezing, rhonchi or rales. Skin: General: Skin is warm and dry. Neurological: General: No focal deficit present. Mental Status: He is alert and oriented to person, place, and time. Gait: Gait abnormal. Comments: Using wheelchair Psychiatric: Mood and Affect: Mood normal. Behavior: Behavior normal. Assessment/Plan Diagnoses and all orders for this visit: Degenerative disc disease at L5-S1 level - HYDROcodone-acetaminophen (Orlando) 10-325 MG tablet; Take 2 tablets by mouth every 6 (six) hours if needed for severe pain for up to 15 days Medication choice and dosage is appropriate for patient's current medical conditions. Patient will continue to be required to be seen in our office at least every three months for monitoring. At eachfollow up visit I will reassess the patient's need for the medication. Patient is to have this medication prescribed only through this office. Failure to follow the rules and regulations will result in tapering and discontinuation of medications if applicable. Patient verbalized understanding. OARRS Report was reviewed for this patient. Localization-related epilepsy (HCC) - PHENobarbital (Luminal) 32.4 MG tablet; Take 1 tablet (32.4 mg) by mouth in the morning and 1 tablet (32.4 mg) in the evening and 1 tablet (32.4 mg) before bedtime. This is a chronic medical condition that is stable since last assessment. No changes in treatment are suggested at this time. Refill sent to [facility] for the patient. Tobacco dependence Discussed smoking cessation with the patient. Encouraged patient to continue to cut back and soon quit smoking. Health risks of smoking, and benefits of quitting reviewed with the patient. Falls frequently No injury from today's fall. Encouraged him to continue with his exercises at home. Use Rolator or other assistive device at all times. Gait instability See above. Panlobular emphysema (HCC) Stable at this time. Will continue to monitor. Follow up in about 3 months (around 09/15/2025) for Medication Follow Up. documented in this encounter Plan of Treatment Upcoming Encounters Date Type Department Care Team (Late st Contact Info) Description 08/18/2025 11:30 AM EDT Procedure Visit [facility] [address] [place] [address] Frandy Avitia, DPM [address] [facility] [address] [place] [address] 09/06/2025 2:00 PM EST [facility] [address] [facility] [address] [place] [address] America Mercado, PA [address] [facility] [address] [place] [address] documented as of this encounter Visit Diagnoses Diagnosis Degenerative disc disease at L5-S1 level- Primary Localization-related epilepsy (HCC) Localization-related (focal) (partial) epilepsy and epileptic syndromes with simple partial seizures, without mention of intractable epilepsy Tobacco dependence Tobacco use disorder Falls frequently Personal history of fall Gait instability Abnormality of gait Panlobular emphysema (HCC) Other emphysema documented in this encounter Care Teams Book Binder Relationship Specialty Start Date End Date Mitul Richmond MD [address] [facility] [address] [place] [address] PCP - ACO Reach 03/13/23 Mitul Richmond MD [address] [facility] [address] [place] [address] PCP - General Internal Medicine 07/07/24 America Mercado PA [address] [facility] [address] [place] [address] Physician Puller Machine Family Medicine 11/03/23 Venita Rosas, RN [address] [place] [address] Registered Nurse Family Medicine 11/12/24 documented as of this encounter
--- OUTSIDE RECORDS SUMMARY | 2025-06-17 12:35 | XMS_ITS | Encounter Summary ---
Author Organization [facility] Address [address] [facility] [place] [address] Care Team Providers Care Art Objects Supervisor Name Role Phone America Mercado Primary Care Provider [phone] Mitul Richmond MD Unavailable [phone] America Mercado Unavailable [phone] Mitul Richmond MD Primary Care Provider [phone] Venita Rosas RN Unavailable [phone] Encounter Details Date Type Department Care Team (Late Contact Info) Description 06/11/2023 Abstract [facility] [facility] [address] [facility] [address] [place] [address] America Mercado PA [address] [place] [address] Social History Tobacco Use Types Packs/Day Years Used Date Smoking Tobacco: Every Day Cigarettes Smokeless Tobacco: Never Alcohol Use Standard Drinks/Week Comments Never 0 (1 standard drink = 0.6 oz pur e alcohol) Sex and Gender Information Value Date Recorded Sex Assigned at Not on file Legal Sex Male 7:20 PM EDT Gender Identity Not on file Sexual Orientation Not on file documented as of this encounter Plan of Treatment Upcoming Encounters Date Type Department Care Team ([facility] Contact Info) Description 08/18/2025 11:30 AM EDT Procedure Visit [facility] [address] [place] [address] Frandy Avitia DPM [address] [facility] 5 [place] [address] 09/06/2025 2:00 PM EST Office Visit [facility] [place] [facility] [address] [facility] [address] [place] [address] America Mercado PA [address] [facility] [address] [place] [address] documented as of this encounter Visit Diagnoses Not on filedocumented in this encounter Care Teams Art Objects Supervisor Relationship Specialty Start Date End Date America Mercado, PA [address] [facility] [address] [place] [address] PCP - General Family Medicine 03/10/23 11/02/23 Mitul Richmond MD [address] [facility] [address] [place] [address] PCP - ACO Reach 03/13/23 Mitul Richmond MD [address] [facility] [address] [place] [address] PCP - General Internal Medicine 07/07/24 America Mercado PA [address] [facility] [address] [place] [address] Physician Obstetrics And Gynecology Professor Family Medicine 11/03/23 Venita Rosas, CODY [address] [facility] [address] [place] [address] Registered Nurse Family Medicine 11/12/24 documented as of this encounter
--- OUTSIDE RECORDS SUMMARY | 2025-06-17 12:35 | XMS_ITS | Encounter Summary ---
Author Organization [facility] Address [address] [facility] [place] [address] Care Team Providers Care Manager Presentation Name Role Phone America Mercado Primary Care Provider [phone] Mitul Richmond MD Unavailable [phone] America Mercado Unavailable [phone] Mitul Richmond MD Primary Care Provider [phone] Venita Rosas RN Unavailable [phone] Encounter Details Date Type Department Care Team (Late Contact Info) Description 07/23/2023 Abstract [facility] [place] [facility] [address] [facility] [address] [place] [address] America Mercado PA [address] [place] [address] Social History Tobacco Use Types Packs/Day Years [...] Upcoming Encounters Date Type Department Care Team ([facility] Contact Info) Description 08/18/2025 11:30 AM EDT Procedure Visit [facility] [address] [place] [address] Frandy Avitia DPM [address] [facility] 5 [place] [address] 09/06/2025 2:00 PM EST Office Visit [facility] [place] [facility] [address] [facility] [address] [place] [address] America Mercado PA [address] [facility] [address] [place] [address] documented as of this encounter Visit Diagnoses Not on filedocumented in this encounter Care Teams Manager Presentation Relationship Specialty Start Date End Date America Mercado, PA [address] [facility] [address] [place] [address] PCP - General Family Medicine 03/10/23 11/02/23 Mitul Richmond MD [address] [facility] [address] [place] [address] PCP - ACO Reach 03/13/23 Mitul Richmond MD [address] [facility] [address] [place] [address] PCP - General Internal Medicine 07/07/24 America Mercado PA [address] [facility] [address] [place] [address] Physician Car Pre Cooler Family Medicine 11/03/23 Venita Rosas, CODY [address] [facility] [address] [place] [address] Registered Nurse Family Medicine 11/12/24 documented as of this encounter
--- OUTSIDE RECORDS SUMMARY | 2025-06-17 12:35 | XMS_ITS | Encounter Summary ---
Author Organization [facility] Address [address] [place] [address] Care Team Providers Care Lead Dental Assistant Name Role Phone America Mercado Primary Care Provider [phone] Mitul Richmond MD Unavailable [phone] America Mercado Unavailable [phone] Mitul Richmond MD Primary Care Provider [phone] Venita Rosas RN Unavailable [phone] Encounter Details Date Type Department Care Team (Late Contact Info) Description 07/22/2023 Clinisync Result Encounter [facility] External Department Unsolicited Provider, Generic External Data Social History Tobacco Use Types Packs/Day Years [...] Encounters Date Type Department Care Team (Late Contact Info) Description 08/18/2025 11:30 AM EDT Procedure Visit [facility] [address] [place] [phone] Frandy Avitia, DPM [address] [facility] [address] [place] [address] 09/06/2025 2:00 PM EST Office Visit [facility] [place] [facility] [address] [place] [address] America Mercado PA [address] [address] documented as of this encounter Procedures Procedure Name Priority Date/Time Associated Diagnosis Comments XR HUMERUS LT* 07/22/2023 7:22 AM EDT documented in this encounter Results * XR HUMERUS LT* (07/22/2023 7:22 AM EDT) Anatomical Region Laterality Modality Radiographic Bernadette ging 07/22/2023 7:22 AM EDT Narrative 07/22/2023 7:22 [place] [address] XRay Report Signed Patient: DUTCH SANCHEZ Sr. MR#: [id number] : 1955 Acct:[id number] Age/Sex: 68 / M ADM Date: 07/21/23 Loc: RAD Attending Dr: Mynor Wilson M.D. Ordering Physician: Mynor Wilson M.D. Date of Service: 07/21/23 Procedure(s): XR humerus LT Accession Number(s): [id number] cc: MITUL RICHMOND ; Mynor Wilson M.D. [address] [address] Patient Name: DUTCH SANCHEZ MRN: [facility]:[id number] date: 1955 Sex: M Assigned Patient Location: RAD Current Patient Location: Accession/Order Number: [id number] Exam Date: 07/21/2023 10:17 Report Date: 07/22/2023 07:22 At the request of: MYNOR WILSON Procedure: XR humerus LT EXAM: XR elbow LT 2V, XR humerus LT HISTORY: Closed Fracture Of Left Humerus S42.402A COMPARISON: 07/07/2023. TECHNIQUE: Routine views of the XR elbow LT 2V, XR humerus LT FINDINGS/ XR/XR humerus LT IMPRESSION: 1. Healing internally fixated distal humeral fracture as evidenced by callus maturation. No evidence for hardware complication. Maintained alignment. No new fracture identified. Normal mineralization. 2. Unremarkable soft tissues. 3. Normal joint spacing. Electronically authenticated by: KELI HAMM Date: 07/22/2023 07:22 Dictated By: Keli Hamm Signed By: 07/22/23723 DD/ 1 TD/TT: Balcony Worker: Procedure Note Radiology, Radiologist, MD - 07/24/2023 [place] [address] XRay Report Signed Patient: DUTCH SANCHEZ Sr.MR#: [id number] : 1955cct:[id number] Age/Sex: 68 / MADM Date: 07/21/23 Loc: RAD Attending Dr: Mynor Wilson M.D. Ordering Physician: Mynor Wilson M.D. Date of Service: 07/21/23 Procedure(s): XR humerus LT Accession Number(s): [id number] cc: MITUL RICHMOND ; Mynor Wilson M.D. [place] [address] Patient Name: DUTCH SANCHEZ MRN: [id number] date: 1955 Sex: M Assigned Patient Location: [facility] Current Patient Location: Accession/Order Number: [id number] Exam Date: 07/21/2023 10:17 Report Date: 07/22/2023 07:22 At the request of: MYNOR WILSON Procedure: XR humerus LT EXAM: XR elbow LT 2V, XR humerus LT HISTORY: Closed Fracture Of Left Humerus S42.402A COMPARISON: 07/07/2023. TECHNIQUE: Routine views of the XR elbow LT 2V, XR humerus LT FINDINGS/ XR/XR humerus LT IMPRESSION: 1. Healing internally fixated distal humeral fracture as evidenced bycallus maturation. No evidence for hardware complication. Maintained alignment.No new fracture identified. Normal mineralization. 2. Unremarkable soft tissues. 3. Normal joint spacing. Electronically authenticated by: KELI HAMM Date: 07/22/2023 07:22 Dictated By: Keli Hamm Signed By:07/22/23723 DD/ 1 TD/TT: Balcony Worker: us Generic External Data Provider IMG XR PROCEDURES Final Result documented in this encounter Visit Diagnoses Not on filedocumented in this encounter Care Teams Lead Dental Assistant Relationship Specialty Start Date End Date America Mercado PA [address] [facility] [address] [place] [address] PCP - General Family Medicine 03/10/23 11/02/23 Mitul Richmond MD [address] [facility] [address] [place] [address] PCP - ACO Reach 03/13/23 Mitul Richmond MD [address] [facility] [address] [place] [address] PCP - General Internal Medicine 07/07/24 America Mercado PA [address] [facility] [address] [place] [address] Physician Api Architect Family Medicine 11/03/23 Venita Rosas, RN [address] [facility] [address] [place] [address] Registered Nurse Family Medicine 11/12/24 documented as of this encounter
--- OUTSIDE RECORDS SUMMARY | 2025-06-17 12:35 | XMS_ITS | Encounter Summary ---
Author Organization [facility] Address [address] [address] Care Team Providers Care Religious Educator Name Role Phone America Mercado Primary Care Provider [phone] Mitul Richmond MD Unavailable [phone] America Mercado Unavailable [phone] Mitul Richmond MD Primary Care Provider [phone] Venita Rosas RN Unavailable [phone] Encounter Details Date Type Department Care Team (Late Contact Info) Description 07/22/2023 Orders Only [facility] [place] [facility] [address] [place] [address] [place] [address] A, Unknown Practice [address] [place] [address] Social History Tobacco Use Types Packs/Day Years [...] Visit [facility] [address] [place] [address] [place] [address] Frandy Avitia, DPM [address] [facility] 5 [place] [address] 09/06/2025 2:00 PM EST Office Visit [facility] [place] [facility] [address] [facility] 110 [place] [id number] America Mercado PA [address] [place] [address] documented as of this encounter Procedures Procedure Name Priority Date/Time Associated Diagnosis Comments XR ELBOW LT 2 VIEW Routine 07/22/2023 8:53 AM EDT documented in this encounter Results * XR ELBOW LT 2 VIEW (07/22/2023 8:53 AM EDT) Anatomical Region Laterality Modality Radiographic Bernadette ging us Unknown Practice A IMG XR PROCEDURES Final Resul t documented in this encounter Visit Diagnoses Not on filedocumented in this encounter Care Teams Religious Educator Relationship Specialty Start Date End Date America Mercado PA [address] [place] [address] PCP - General Family Medicine 03/10/23 11/02/23 Mitul Richmond MD [address] [place] [address] PCP - ACO Reach 03/13/23 Mitul Richmond MD [address] [place] [address] PCP - General Internal Medicine 07/07/24 America Mercado PA [address] [place] [address] Physician Wireless Communications Engineer Family Medicine 11/03/23 Venita Rosas, RN [address] [place] [address] Registered Nurse Family Medicine 11/12/24 documented as of this encounter
--- OUTSIDE RECORDS SUMMARY | 2025-06-17 12:35 | XMS_ITS | Encounter Summary ---
Author Organization [facility] Address [address] [facility] [address] [place] [address] Care Team Providers Care Novelty Balloon Assembler And Packer Name Role Phone Mitul Richmond MD Unavailable [phone] America Mercado Unavailable [phone] Mitul Richmond MD Primary Care Provider [phone] Venita Rosas RN Unavailable [phone] Encounter Details Date Type Department Care Team (Late st Contact Info) Description 06/10/2025 Patient Outreach [facility] [address] [place] [id number] Venita Rosas, RN [address] [facility] 230 [place] [address] Social History Tobacco Use Types Packs/Day Years Used Date Smoking Tobacco: Every Day Cigarettes 0.3 15 Smokeless Tobacco: Never Comments:Smoking 7 cigars a day as of 05/25/2024 and vapes. H/o 1 PPD Alcohol Use Standard Drinks/Week Comments Never 0 (1 standard drink = 0.6 oz pur e alcohol) PHQ-2 Answer Date Recorded Patient Health Questionnaire-2 Score 0 03/15/2025 Sex and Gender Information Value Date Recorded Sex Assigned at Not on file Legal Sex Male 7:20 PM EDT Gender Identity Not on file Sexual Orientation Not on file documented as of this encounter Progress Notes * Venita Rosas RN - 06/10/2025 2:39 PM EDT Chart reviewed. Called pt for monthly monitor call. States that he still has [facility] for physical therapy, states that his rollator the tire/wheel is losing the rubber. Discussed that he can have the physical therapist document the need for a new rollator. And have them send notes, and we can send these [place] [facility] to have it covered under insurance. Pt states his rollator is over 5 years old and the brakes are going. Pt states DME company is old [employer] in [place]. Pt then states that his passport retirement village manager is assisting with getting a new rollator and a new toilet bowl because the previous one cracked. States but that was 2 months ago. Discussed with pt then CM will allow [facility] case [facility] to complete these. Advised pt to contact [facility], office usually does not close until 4:30 pm. HH nurse in the home filling medications. States pt needs rx for phenobarbital. Pt questions why there are no refills on it. Discussed that on the original order that there was 5 refills. Discussed that PCP must make sure pt's are taking medication and no adjustments are needed. But there was originally refills on it, it decreases each time this is ordered. Pt states he will need this by next Sunday 06/17, pt has appt on 06/15. Hydrocodone-Acetaminophen sent to [facility]. States it will not be due until June 29, discussed it is too early to send Rx in. Discussed to call when medication is able to be sent. Pt reports his decreasing smoking is not going well. Encouraged pt to dec rease smoking and change habits. No further questions or concerns. Encouraged to call when needs arise documented in this encounter Plan of Treatment Upcoming Encounters Date Type Department Care Team (Late st Contact Info) Description 08/18/2025 11:30 AM EDT Procedure Visit [facility] [address] [place] [place] [id number] Frandy Avitia DPM 25[address] [facility] 5 [place] [address] 09/06/2025 2:00 PM EST Office Visit [facility] [place] [facility] [address] [place] [address] [place] [address] America Mercado PA [address] [facility] 110 [place] [address] documented as of this encounter Visit Diagnoses Diagnosis Seizure disorder (HCC)- Primary Unspecified epilepsy without mention of intractable epilepsy Chronic obstructive pulmonary disease, unspecified COPD type (HCC) documented in this encounter Care Teams Novelty Balloon Assembler And Packer Relationship Specialty Start Date End Date Mitul Richmond MD [address] [facility] 110 [place] [address] PCP - ACO Reach 03/13/23 Mitul Richmond MD [address] [facility] 110 [place] [address] PCP - General Internal Medicine 07/07/24 America Mercado PA [address] [facility] 110 [place] [address] Physician Brigadier Family Medicine 11/03/23 Venita Rosas, CODY [address] [facility] 230 [place] [address] Registered Nurse Family Medicine 11/12/24 documented as of this encounter
--- OUTSIDE RECORDS SUMMARY | 2025-06-17 12:35 | XMS_ITS | Encounter Summary ---
Author Organization [facility] Address [address] [place] [address] Care Team Providers Care Certified Financial Planner Name Role Phone America Mercado Primary Care Provider [phone] Mitul Richmond MD Unavailable [phone] America Mercado Unavailable [phone] Mitul Richmond MD Primary Care Provider [phone] Venita Rosas RN Unavailable [phone] Encounter Details Date Type Department Care Team (Late Contact Info) Description 06/10/2023 Orders Only [facility] [place] [facility] [address] [place] [address] [place] [address] A, Unknown Practice [address] [place] [address] Social History Tobacco Use Types Packs/Day [...] PODIATRY [address] [place] [address] [place] [address] Frandy Avitia, DPM [address] [facility] 5 [place] [address] 09/06/2025 2:00 PM EST Office Visit [facility] [place] [address] [facility] 110 [place] [phone] America Mercado PA [address] [place] [address] documented as of this encounter Procedures Procedure Name Priority Date/Time Associated Diagnosis Comments XR ELBOW 1-2 VIEWS LEFT Routine 06/09/2023 9:01 AM EDT documented in this encounter Results * XR elbow 1 or 2 views left (06/09/2023 9:01 AM EDT) Anatomical Region Laterality Modality Upper Extremities, Elbow Left Radiogr aphic Imaging us Unknown Practice A IMG XR PROCEDURES Final Resul t documented in this encounter Visit Diagnoses Not on filedocumented in this encounter Care Teams Certified Financial Planner Relationship Specialty Start Date End Date America Mercado PA [address] [place] [address] PCP - General Family Medicine 03/10/23 11/02/23 Mitul Richmond MD [address] [place] [address] PCP - ACO Reach 03/13/23 Mitul Richmond MD [address] [place] [address] PCP - General Internal Medicine 07/07/24 America Mercado PA [address] [place] [address] Physician Progress Worker Family Medicine 11/03/23 Venita Rosas, RN [address] [place] [address] Registered Nurse Family Medicine 11/12/24 documented as of this encounter
--- OUTSIDE RECORDS SUMMARY | 2025-06-17 12:35 | XMS_ITS | Encounter Summary ---
Author Organization [facility] Address [address] [facility] [place] [address] Care Team Providers Care Senior Solutions Engineer Name Role Phone Mitul Richmond MD Unavailable [phone] America Mercado Unavailable [phone] Mitul Richmond MD Primary Care Provider [phone] Venita Rosas RN Unavailable [phone] Encounter Details Date Type Department Care Team (Late Contact Info) Description 06/15/2025 Bamboo flowsheet [facility] [place] [facility] [address] [place] [address] [place] [phone] America Mercado PA [address] [place] [address] [place] [address] Social History Tobacco Use Types Packs/Day Years [...] [address] [place] [address] [place] [address] Frandy Avitia, DPJuan M [address] [facility] 5 [place] [address] 09/06/2025 2:00 PM EST Office Visit [facility] [place] [facility] [address] [facility] 110 [place] [address] America Mercado PA [address] [facility] 110 [place] [address] documented as of this encounter Visit Diagnoses Not on filedocumented in this encounter Care Teams Senior Solutions Engineer Relationship Specialty Start Date End Date Mitul Richmond MD [address] [facility] 110 [place] [address] PCP - ACO Reach 03/13/23 Mitul Richmond MD [address] [facility] 110 [place] [address] PCP - General Internal Medicine 07/07/24 America Mercado PA [address] [facility] 110 [place] [address] Physician Architectural Engineering Teacher Family Medicine 11/03/23 Venita Rosas, RN [address] [facility] 230 [place] [address] Registered Nurse Family Medicine 11/12/24 documented as of this encounter
--- OUTSIDE RECORDS SUMMARY | 2025-06-17 12:35 | XMS_ITS ---
Author Organization [facility] Address [address] [place] [address] Care Team Providers Care Digital Marketing Officer Name Role Phone Mitul Richmond MD Unavailable [phone] America Mercado Unavailable [phone] Mitul Richmond MD Primary Care Provider [phone] Venita Rosas RN Unavailable [phone] Chronic Care Management (CCM) Status:Enrolled (Active) Start date:11/12/2024 Enrollment date:11/12/2024 Overview Please assess for Care Management needs. 11/12/24, 1:03 PM - Venita Rosas RN- Patient gives verbal consent to be enrolled in CCM Program and understands there could be a bill for this service. CCM bill NO Case Team Name Relationship Phone Venita Rosas RN(Responsible Staff) Jacob jurado Nurse [phone] Continued Care and Services Coordination
--- OUTSIDE RECORDS SUMMARY | 2025-06-17 12:35 | XMS_ITS | Encounter Summary ---
Author Organization [facility] Address [address] [facility] [place] [address] Care Team Providers Care Gas Desulfurizer Name Role Phone America Mercado Primary Care Provider [phone] Mitul Richmond MD Unavailable [phone] America Mercado Unavailable [phone] Mitul Richmond MD Primary Care Provider [phone] Venita Rosas RN Unavailable [phone] Encounter Details Date Type Department Care Team (Late Contact Info) Description 08/12/[address] [facility] [facility] [address] [place] [address] [place] [address] America Mercado PA [address] [place] [place] [id number] Social History Tobacco Use Types Packs/Day Years Used Date Smoking Tobacco: Every Day Cigarettes 1 15 Smokeless Tobacco: Never Alcohol Use Standard Drinks/Week Comments Never 0 (1 standard drink = 0.6 oz pur e alcohol) PHQ-2 Answer Date Recorded Patient Health Questionnaire-2 Score 0 08/08/2023 Sex and Gender Information Value Date Recorded Sex Assigned at Not on file Legal Sex Male 7:20 PM EDT Gender Identity Not on file Sexual Orientation Not on file documented as of this encounter Plan of Treatment Upcoming Encounters Date Type Department Care Team (Late Contact Info) Description 08/18/2025 11:30 AM EDT Procedure Visit [facility] [address] [place] [address] [place] [address] Frandy Avitia, DPJuan M [address]006 [facility] 5 [place] [address] 09/06/2025 2:00 PM EST Office Visit [facility] [place] [facility] [address] [facility] 110 [place] [address] America Mercado PA [address] [facility] 110 [place] [address] documented as of this encounter Visit Diagnoses Not on filedocumented in this encounter Care Teams Gas Desulfurizer Relationship Specialty Start Date End Date America Mercado PA [address] [facility] 110 [place] [address] PCP - General Family Medicine 03/10/23 11/02/23 Mitul Richmond MD [address] [facility] 110 [place] [address] PCP - ACO Reach 03/13/23 Mitul Richmond MD [address] [facility] 110 [place] [address] PCP - General Internal Medicine 07/07/24 America Mercado PA [address] [facility] 110 [place] [address] Physician Header Operator Family Medicine 11/03/23 Venita Rosas, RN [address] [facility] 230 [place] [address] Registered Nurse Family Medicine 11/12/24 documented as of this encounter
--- OUTSIDE RECORDS SUMMARY | 2025-06-17 12:35 | XMS_ITS | Encounter Summary ---
Author Organization [facility] Address [address] [facility] [place] [address] Care Team Providers Care Automotive Parts Interpreter Name Role Phone Mitul Richmond MD Unavailable [phone] America Mercado Unavailable [phone] Mitul Richmond MD Primary Care Provider [phone] Venita Rosas RN Unavailable [phone] Encounter Details Date Type Department Care Team (Late st Contact Info) Description 06/13/2025 Abstract [facility] [place] [facility] [address] [facility] 110 [place] [address] Mitul Richmond MD 112 [facility] 110 [place], [place] [address] Social History Tobacco Use Types Packs/Day Years [...] on file documented as of this encounter Functional Status * Over the past 2 weeks, how often have you been bothered by any of the following problems? Question Answer Date of Assessment Author Little interest or pleasure in doing things Not at all 06/15/2025 1:44 PM EDT Mine Lynn LP N Feeling down, depressed, or hopeless Not at all 06/15/2025 1:44 PM EDT Leah ELIZABET Blount N Patient Health Questionnaire -2 Score 0 06/15/2025 1:44 PM EDT Leah, ELIZABET Blount N documented as of this encounter Plan of Treatment Upcoming Encounters Date Type Department Care Team (Late st Contact Info) Description 08/18/2025 11:30 AM EDT Procedure Visit [facility] [address] [facility] 120 [place] [address] Frandy Avitia, DPJuan M 3006 [facility] 5 [place], [place] [address] 09/06/2025 2:00 PM EST Office Visit [facility] [place] [facility] [address] [facility] 110 [place] [address] America Mercado PA [address] [facility] 110 [place] [address] documented as of this encounter Visit Diagnoses Not on filedocumented in this encounter Care Teams Automotive Parts Interpreter Relationship Specialty Start Date End Date Mitul Richmond MD [address] [facility] 110 [place] [address] PCP - ACO Reach 03/13/23 Mitul Richmond MD [address] [facility] 110 [place] [address] PCP - General Internal Medicine 07/07/24 America Mercado PA [address] [facility] 110 [place] [address] Physician Ivory Carver Family Medicine 11/03/23 Venita Rosas, RN [address] [facility] 230 [place] [address] Registered Nurse Family Medicine 11/12/24 documented as of this encounter
--- OUTSIDE RECORDS SUMMARY | 2025-06-17 12:35 | XMS_ITS | Encounter Summary ---
Author Organization [facility] Address [address] [facility] [place] [address] Care Team Providers Care Lead Consultant Name Role Phone Mitul Richmond MD Unavailable [phone] America Mercado Unavailable [phone] Mitul Richmond MD Primary Care Provider [phone] Venita Rosas RN Unavailable [phone] Encounter Details Date Type Department Care Team (Late st Contact Info) Description 06/14/2025 Refill [facility] [place] [facility] [address] [place] [address] [place] [address] Mitul Richmond MD [address] [facility] 110 [place], [place] [id number] Localization-related epilepsy (HCC) Social History Tobacco Use Types Packs/Day [...] on file documented as of this encounter Miscellaneous Notes * Telephone Encounter - FRANCO Reyna - 06/14/2025 2:31 PM EDT OARRS reviewed, Rx sent into patient's pharmacy. * Telephone Encounter - JAS MIGUEL - 06/14/2025 1:43 PM EDT OV 03/15/25 RF 12/13/24 * Telephone Encounter - Catherine Gomes - 06/14/2025 1:24 PM EDT Ricardo called requesting a refill on hisPHENobarbital (Luminal) [facility] [place] 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 110 [place] [address] PCP - General Internal Medicine 07/07/24 America Mercado PA [address] [facility] 110 [place] [address] Physician Eap Counselor Family Medicine 11/03/23 Venita Rosas, CODY [address] [facility] [address] [facility] 230 [place] [address] Registered Nurse Family Medicine 11/12/24 documented as of this encounter
--- OUTSIDE RECORDS SUMMARY | 2025-06-17 12:35 | XMS_ITS | Clinical Summary ---
Author Organization [facility] Healthcare Address [address] [facility] [place] [address] Care Team Providers Care Brine Tank Separator Operator Name Role Phone Mitul Richmond MD Unavailable America Mercado Unavailable [phone] Mitul Richmond MD Primary Care Provider [phone] Venita Rosas RN Unavailable [phone] Allergies Active Allergy Reactions Criticality Noted Date Comments Bee Pollen Unknown 03/24/2023 Bupropion 03/10/2024 Carbamazepine Unknown 03/24/2023 Cefaclor 03/16/2024 Varenicline High 06/15/2025 Suicidal Ideations Duloxetine Hcl 03/16/2024 Duloxetine Unknown High 03/10/2024 Anger, doesn't know where he is Oxcarbazepine 03/16/2024 Medications furosemide (Lasix) 20 MG tablet Take 20 mg by mouth Daily 024 Active acetaminophen (Tylenol Extra Strength) 500 MG tablet Take 500 mg by mouth every 6 (six) hours if needed for mild pain Active diphenhydrAMINE (BENADryl) 25 MG capsule Take 25 mg by mouth at bedtime Active sildenafil (Viagra) 50 MG tabletIndication s:Erectile dysfunction, unspecified erectile dysfunction type Take 1 tablet (50 mg) by mouth Daily as needed for erectile dysfunction 8 tablet 2 024 Active venlafaxine XR (Effexor XR) 75 MG 24 hr capsuleIndicatio ns:Depressive disorder Take 1 capsule (75 mg) by mouth Daily 100 capsule 3 024 Active lisinopril 20 MG tabletIndication s:Primary hypertension TAKE 1 TABLET (20MG) BY MOUTH AT NOON BEFORE A MEAL 30 tablet 10 025 Active simvastatin (Zocor) 40 MG tabletIndication s:Mixed hyperlipidemia,H ypertension, unspecified type TAKE 1 TABLET BY MOUTH IN THE MORNING 30 tablet 10 025 Active tiZANidine (Zanaflex) 4 MG tabletIndication s:Right lumbar radiculopathy TAKE 2 TABLETS BY MOUTH EVERY 8 HOURS NEEDED FOR MUSCLE SPASMS 60 tablet 10 025 Active EPINEPHrine (AUVI-Q) 0.15 mg/0.15 mL IJ solution auto-injector injectionIndicat ions:Bee sting allergy Inject 0.3 mL (0.3 mg) into the shoulder, thigh, or buttocks if needed for anaphylaxis 025 Active albuterol HFA 90 mcg/act inhalerIndicatio ns:Chronic obstructive pulmonary disease, unspecified COPD type (HCC) Inhale 2 puffs every 4 (four) hours if needed for wheezing 18 g 025 Active phenytoin ER (Dilantin) 100 MG capsuleIndicatio ns:Localization- related epilepsy (HCC) TAKE ONE (1) CAPSULE BY MOUTH IN THE MORNING, IN THE EVENING, AT BEDTIME 90 capsule 10 025 Active primidone (Mysoline) 50 MG tabletIndication s:Essential tremor TAKE 2 TABLETS BY MOUTH IN THE MORNING, TAKE 1 TABLET IN THE AFTERNOON, AND TAKE 2 TABLETS AT BEDTIME 150 tablet 1 025 Active meloxicam (Mobic) 7.5 MG tablet Take 7.5 mg by mouth Daily as needed for mild pain or moderate pain QTY 14 tabs 025 Active fluticasone (Flonase) 50 MCG/ACT nasal sprayIndications :Allergic rhinitis, unspecified seasonality, unspecified trigger INSTILL TWO (2) SPRAYS IN EACH NOSTRIL DAILY 16 g 10 025 Active venlafaxine XR (Effexor XR) 150 MG 24 hr capsuleIndicatio ns:Depressive disorder TAKE 1 CAPSULE BY MOUTH ONCE DAILY 90 capsule 11 025 Active pantoprazole (ProtoNix) 40 MG EC tabletIndication s:Gastro-esophag eal reflux disease without esophagitis TAKE 1 TABLET BY MOUTH EVERY MORNING 30 tablet 11 025 Active ARIPiprazole (Abilify) 2 MG tabletIndication s:Major depressive disorder with single episode, remission status unspecified TAKE 1 TABLET BY MOUTH DAILY 90 tablet 11 025 Active pregabalin (Lyrica) 150 MG capsuleIndicatio ns:Lumbar radiculopathy,De generative disc disease at L5-S1 level Take 1 capsule (150 mg) by mouth in the morning and 1 capsule (150 mg) in the evening and 1 capsule (150 mg) before bedtime. 90 capsule 1 025 Active tamsulosin (Flomax) 0.4 MG 24 hr capsuleIndicatio ns:Benign localized prostatic hyperplasia with lower urinary tract symptoms (LUTS) TAKE 1 CAPSULE BY MOUTH EVERY MORNING 100 capsule 3 025 Active Breztri Aerosphere 160-9-4.8 MCG/ACT aerosolIndicatio ns:Panlobular emphysema (HCC),Simple chronic bronchitis (HCC) INHALE TWO (2) PUFFS IN THE MORNING AND INHALE TWO (2) PUFFS BEFORE BEDTIME 10.7 g 11 025 Active PHENobarbital (Luminal) 32.4 MG tabletIndication s:Localization-r elated epilepsy (HCC) Take 1 tablet (32.4 mg) by mouth in the morning and 1 tablet (32.4 mg) in the evening and 1 tablet (32.4 mg) before bedtime. 90 tablet 2 025 Active HYDROcodone-acet aminophen ([place]) 10-325 MG tabletIndication s:Degenerative disc disease at L5-S1 level Take 2 tablets by mouth every 6 (six) hours if needed for severe pain for up to 15 days 120 tablet 025 2024 Active PHENobarbital (Luminal) 32.4 MG tabletIndication s:Localization-r elated epilepsy (HCC) TAKE 1 TABLET BY MOUTH THREE TIMES DAILY (IN THE MORNING, IN THE EVENING, and BEFORE bedtime) 90 tablet 5 025 2024 Discontinued(R eorder) Budeson-Glycopyr rol-Formoterol (Breztri Aerosphere) 160-9-4.8 MCG/ACT aerosolIndicatio ns:Panlobular emphysema (HCC),Simple chronic bronchitis (HCC) Inhale 2 puffs in the morning and 2 puffs before bedtime. 10.7 g 5 025 2024 Discontinued HYDROcodone-acet aminophen ([place]) 10-325 MG tabletIndication s:Degenerative disc disease at L5-S1 level Take 2 tablets by mouth every 6 (six) hours if needed for severe pain for up to 15 days 120 tablet 025 2024 Discontinued(R eorder) PHENobarbital (Luminal) 32.4 MG tabletIndication s:Localization-r elated epilepsy (HCC) Take 1 tablet (32.4 mg) by mouth in the morning and 1 tablet (32.4 mg) in the evening and 1 tablet (32.4 mg) before bedtime. 90 tablet 2 025 2024 Discontinued(R eorder) Active Problems Problem Noted Date Diagnosed Date Other chronic pain 03/15/2025 Lumbar spondylosis 03/15/2024 Tremor 03/15/2024 Lumbar radiculopathy 03/15/2024 DDD (degenerative disc disease), lumbar 03/15/20 24 Overview (03/15/2024): The patient was found to have significant degenerative changes in the lumbar spine with moderate to severe arthritic changes and neural foraminal changes noted. Causative for the patient's radicular symptoms. PLAN: - See above. Lumbosacral radiculopathy 03/15/2024 Overview (03/15/2024): Lumbosacral radiculopathy could not be excluded on BLE EMG from 11/12/19 but is clinically present and consistent with the patient's lumbar spine MRI findings. The patient has bilateral low back pain and lower extremity weakness. He has tried conservative measures including home-directed therapy exercises, narcotic medications previously prescribed by another physician, and OTC medications without success. Bilateral L4 epidural injections have provided benefit (> 50% pain reduction lasting > 3 months). These improved the patient's quality of life and ability [...] and the patient would like to proceed. Gait instability 03/15/2024 Overview (03/15/2024): Chronic gait instability. This is likely multifactorial, related to lumbosacral radiculopathy, polyneuropathy, and generalized deconditioning. The patient was previously referred to PT but did not follow through due to transportation issues. PLAN: - Plan as above - Fall precautions discussed in detail - I encouraged regular use of a walker to help with stability Diabetic peripheral neuropat hy associated with type 2 diabetes mellitus 10/31/2023 Abnormal gait 03/24/2023 Balance disorder 03/24/2023 Benign localized prostatic h yperplasia with lower urinary tract symptoms (LUTS) 03/24/2023 Chronic otitis externa of left ear 03/24/2023 COPD (chronic obstructive pulmonary disease) 02/2023 Degenerative disc disease at L5-S1 level 023 Depressive disorder 03/24/2023 Essential tremor 03/24/2023 Overview (03/15/2024): The patient has a history of essential tremor managed with primidone. Tremor has subjectively worsened recently, and he reports ongoing difficulty with writing/coloring. Very mild tremor appreciated on clinical exam today. Consideration also given to possible side effect to Abilify and this was discussed with the patient today. PLAN: - Increase primidone 50mg PO to 2 tablets in the am, 1 tablet in the afternoon, and 2 tablets at bedtime. - I would avoid propranolol in the setting of respiratory condition - Already on lyrica [place] frequently 03/24/2023 Gastro-esophageal reflux disease without esophag itis 03/24/2023 Hand eczema 03/24/2023 Hemorrhoids, external 03/24/2023 Hiatal hernia 03/24/2023 Hypertension 03/24/2023 Hyponatremia 03/24/2023 IGT (impaired glucose tolerance) 03/24/2023 Localization-related epilepsy 03/24/2023 Lumbosacral neuritis 03/24/2023 Migraine, unspecified, not i ntractable, without status migrainosus 03/24/2023 Mixed hyperlipidemia 03/24/2023 Polyneuropathy 03/24/2023 Overview (03/15/2024): The patient has polyneuropathy as identified on BLE EMG from 10/2019 (severe, axonal loss). He has paresthesias in the bilateral feet and diminished distal BLE sensation on clinical examination. History of DM which is likely causative. I suspect that sensory changes are also affecting the patient's gait and instability. PLAN: - Plan as above Primary osteoarthritis involving multiple joints 03/24/2023 Recurrent acute sinusitis 03/24/2023 Right lumbar radiculopathy 03/24/2023 Seizure disorder 03/24/2023 Overview (03/15/2024): The patient reports a history of seizure disorder which is stable and well controlled. Previous work-up for this is not available to me. His most recent seizure was in 1992 and described as generalized tonic-clonic. PLAN: - Currently taking phenobarbitol and phenytoin (prescribed by PCP) with no reported side effects. Simple chronic bronchitis 03/24/2023 Tobacco dependence 03/24/2023 Tubulovillous adenoma of colon 03/24/2023 Visual impairment 03/24/2023 Resolved Problems Problem Noted Date Diagnosed Date Resolved Date Headache 03/15/2024 08/31/2024 Migraine 03/15/2024 08/31/2024 Back pain 03/15/2024 08/31/2024 Backache 03/15/2024 08/31/2024 Otitis externa 03/24/2023 10/31/2023 Type 2 diabetes mellitus wit h other skin complications 03/24/2023 05/02/2023 Encounters Date Type Department Care Team Description 06/15/2025 2:00 PM EDT Office Visit [facility] [place] [facility] [address] [facility] [address] [place] [address] America Mercado, PA Degenerative disc disease at L5-S1 level (Primary Dx); Localization-related epilepsy (HCC); Tobacco dependence; Falls frequently; Gait instability; Panlobular emphysema (HCC) 06/15/2025 Bamboo flowsheet [facility] [place] [facility] [address] [place] [address] [place] [address] America Mercado PA 06/15/2025 Travel 06/14/2025 [facility] [place] [facility] [address] [place] [address] [place] [address] Mitul Richmond MD Localization-related epilepsy (HCC) 06/13/2025 [facility] [address] [place] [address] [place] [address] Mitul Richmond MD 06/10/2025 Patient Outreach [facility] [place] [address] Venita Rosas RN 06/02/2025 [facility] [place] [facility] [address] [place] [address] [place] [address] Mitul Richmond MD 05/30/2025 [facility] [address] [place] [address] [place] [address] Mitul Richmond MD 05/26/2025 11:20 AM EDT Procedure Visit [facility] [address] [place] [address] [place] [address] Frandy Avitia DPM Diabetes mellitus due to underlying condition with diabetic polyneuropathy, unspecified whether extermination supervisor insulin use (HCC) (Primary Dx); Pain due to onychomycosis of toenails of both feet 05/26/2025 [facility] [place] [facility] [address] [place] [address] [place] [address] America Mercado PA Panlobular emphysema (HCC); Simple chronic bronchitis (HCC) 05/26/2025 Bamboo flowsheet [facility] [address] [place] [address] [place] [address] Frandy Avitia DPM 05/26/2025 Travel 05/17/2025 Abstract [facility] [place] [facility] [address] [place] [address] [place] [address] Mitul Richmond MD 05/16/2025 Patient Outreach [facility] [address] [place] [id number] Venita Rosas, CODY 05/12/2025 Abstract [facility] [place] [facility] [address] [place] [address] [place] [address] Mitul Richmond MD 05/10/2025 Refill [facility] [place] [facility] [address] [place] [address] [place] [address] Mitul Richmond MD Degenerative disc disease at L5-S1 level 04/27/2025 Refill [facility] [place] [facility] [address] [place] [address] [place] [address] America Mercado, PA Benign localized prostatic hyperplasia with lower urinary tract symptoms (LUTS) 04/26/2025 Abstract [facility] [place] [facility] [address] [place] [address] [place] [address] Mitul Richmond MD 04/21/2025 Abstract [facility] [place] [facility] [address] [place] [address] [place] [address] Mitul Richmond MD 04/20/2025 Telephone [facility] [place] [facility] [address] [place] [address] [place] [address] Mitul Richmond MD letter for air conditioner 04/11/2025 Patient Outreach [facility] [address] [place] [address] Venita Rosas, CODY 04/06/2025 Abstract [facility] [place] [facility] [address] [place] [address] [place] [address] Mitul Richmond MD 04/05/2025 Abstract [facility] [place] [facility] [address] [place] [address] [place] [address] Mitul Richmond MD 04/05/2025 [facility] [address] [facility] [address] [place] [address] Mitul Richmond MD 03/29/2025 Abstract [facility] [address] [facility] [address] [place] [address] Mitul Richmond MD 03/24/2025 Telephone [facility] [address] [facility] [address] [place] [address] America Mercado PA 03/23/2025 Telephone [facility] [address] [facility] [address] [place] [address] America Mercado, PA change referral 03/17/2025 11:40 AM EDT Procedure Visit [facility] [address] [facility] [address] [place] [address] Frandy Avitia DPM Diabetes mellitus due to underlying condition with diabetic polyneuropathy, unspecified whether extermination supervisor insulin use (HCC) (Primary Dx); PVD (peripheral vascular disease); Pain due to onychomycosis of toenails of both feet 03/17/2025 Bamboo flowsheet [facility] [address] [facility] [address] [place] [address] Frandy Avitia DPM 03/17/2025 Travel from Last 3 Months Immunizations Immunization Administration Dates Next Due Influenza, High Dose Seasona l, Preservative Free 2020,06/14/2020 Influenza, High-dose Seasona l, Quadrivalent, Preservative Free 08/31/2024,08/08/2023 Influenza, Seasonal, Quadriv alent, Adjuvanted 08/23/2022 Influenza, injectable, MDCK, preservative free, quadrivalent 09/17/2019 Influenza, injectable, quadr ivalent, preservative free 06/27/2021 Influenza, seasonal, injecta ble, preservative free 10/20/2016,08/15/2015 Influenza, seasonal, intrade rmal, preservative free 07/16/2018,09/04/2017,06/22/2014 Pfizer Ziegler Cap SARS-CoV-2 Vaccination 3 Pneumococcal Conjugate PCV 13 11/22/2020, 013 Pneumococcal Conjugate PCV 20 09/10/2023 Pneumococcal Polysaccharide PPSV23 2012 RSV, recombinant, protein tavares bunit RSVpreF, adjuvant reconstitu, 120mcg/0.5mL, PF (Arexvy) 09/10/2023 Zoster, Recombinant 09/29/2020,06/14/2020 Zoster, live 03/22/2014 Family History Medical History Relation Name Comments No Known Problems Father Arthritis Mother Heart disease Mother Hypertension Mother Hypertension Other Relation Name Status Comments Father Mother Alive Other Social History Tobacco Use Types Packs/Day Years Used Date Smoking Tobacco: Every Day Cigarettes 0.3 15 Smokeless Tobacco: Never Tobacco Cessation:Ready to Q uit: Not Asked; Counseling Given: Yes Comments:Smoking 7 cigars a day as of [...] on file Sexual Orientation Not on file Last Filed Vital Signs Vital Sign Reading [...] Mass Index 22.71 06/15/2025 1:50 PM EDT Plan of Treatment Upcoming Encounters Date Type Department Care Team (Late st Contact Info) Description 08/18/2025 11:30 AM EDT Procedure Visit [facility] [address] [place] [address] [place] [address] Frandy Avitia DPM [address] [facility] [address] [place] [address] 09/06/2025 2:00 PM EST Office Visit [facility] [address] [facility] [address] [place] [address] America Mercado PA [address] [facility] [address] [place] [address] Health Maintenance Due Date Last Done Comments CT Colonography 1956 FIT-DNA 1956 FIT 1956 FOBT 1955 Sigmoidoscopy 1956 Diabetes: Urine Protein Screening 07/04/2022 07/04/2021, 05/04/2020, 01/20/2019, Additional history exists Diabetes: Hemoglobin A1C 08/25/2024 024, 11/24/2023, 06/06/2023, Additional history exists Diabetes: Retinopathy Screening 04/15/2025 04/15/2023, 03/28/2022, 01/18/2021, Additional history exists Influenza Vaccine (#1) 2025 , 08/08/2023, 08/23/2022, Additional history exists Colonoscopy 03/21/2031 03/21/2021 Colorectal Cancer Screening 03/21/2031 Pneumococcal Vaccine: 65+ Years Completed 09/10/2023, 11/22/2020, 2013, Additional history exists Procedures Procedure Name Priority Date/Time Associated Diagnosis Comments POCT GLYCATED HEMOGLOBIN, TOTAL Routine 05/25/2024 1:32 PM EDT Diabetic peripheral neuropathy associated with type 2 diabetes mellitus (HCC) DIABETIC RETINOPATHY SCREENING - OU - BOTH EYES Routine 04/15/2023 MICROALBUMIN / CREATININE URINE RATIO Routine 07/04/2021 COLONOSCOPY Routine 03/21/2021 12:00 PM EDT from Last 3 Months or Most Recently Relevant to Health Maintenance Results * POCT Glycated hemoglobin, total (05/25/2024 1:32 PM EDT) Hemoglobin A1C 4.9 Blood 05/25/2024 1:32 PM EDT America GAMEZ POINT OF CARE TEST ENTER/EDIT ORDERABLES Final Result * Diabetic Retinopathy Screening - OU - Both Eyes (04/15/2023) RESULTS NDR Anatomical Region Laterality Modality Head Other 04/15/2023 Historical Provider OPHTH PHOTOGRAPHY Final R esult * (ABNORMAL) Microalbumin / creatinine urine ratio (07/04/2021) UCREA 49 39 - 259 [facility] MALB <1.2(L) [facility] Comment: Unable to calculate mALB/Crea ratio, mALB is <1.2 mg/dL mALB reference range not established. 07/04/2021 Mitul Richmond MD LAB URINE ORDERABLES Final Res ult [facility] * Colonoscopy (03/21/2021 12:00 PM EDT) Anatomical Region Laterality Modality Endoscopy 03/21/2021 12:0 0 PM EDT Narrative 03/21/2021 12:00 PM EDT PERFORMED AT [facility] LOCATION:[id number] sessile villous adenoma - repeat in 3 years Procedure Note CONVERSION, GENERIC - 03/05/2023 PERFORMED AT [facility] LOCATION:[id number] sessile villous adenoma - repeat in 3 years Mitul Richmond MD ENDOSCOPY PROCEDURE ORDERABLES Final Result from Last 3 Months or Most Recently Relevant to Health Maintenance Insurance [place]ICA[place] MEDICARE Advance Directives Documents on File Type Date Recorded Patient Grid Trimmer Expl anation Power of Shoelace Tipping Machine Operator 01/13/2025 2:27 PM Healt hcare Power of Shoelace Tipping Machine Operator Advance Directives and Living Will 01/13/2025 2:27 PM Living Will Declaration Care Teams Brine Tank Separator Operator Relationship Specialty Start Date End Date Mitul Richmond MD [address] [facility] [address] [place] [address] PCP - ACO Reach 03/13/23 Mitul Richmond MD [address] [facility] [address] [place] [address] PCP - General Internal Medicine 07/07/24 America Mercado PA [address] [facility] [address] [place] [address] Physician Memorial Marker Designer Family Medicine 11/03/23 Venita Rosas RN [address] [facility] [address] [place] [address] Registered Nurse Family Medicine 11/12/24
--- OUTSIDE RECORDS SUMMARY | 2025-06-17 12:35 | XMS_ITS | Encounter Summary ---
Author Organization [facility] Address [address] [place] [place] [address] Care Team Providers Care Mri Technician Name Role Phone America Mercado Primary Care Provider [phone] Mitul Richmond MD Unavailable [phone] America Mercado Unavailable [phone] Mitul Richmond MD Primary Care Provider [phone] Venita Rosas RN Unavailable [phone] Encounter Details Date Type Department Care Team (Late Contact Info) Description 06/10/2023 Abstract [facility] [place] [facility] [address] [facility] [address] [place] [address] America Mercado PA [address] [place] [address] [place] [address] Social History Tobacco Use Types Packs/Day Years [...] Upcoming Encounters Date Type Department Care Team ([facility] Contact Info) Description 08/18/2025 11:30 AM EDT Procedure Visit [facility] [address] [place] [address] [place] [address] Frandy Avitia DPM [address] [facility] [address] [place] [address] 09/06/2025 2:00 PM EST Office Visit [facility] [place] [address] [facility] [address] [place] [address] America Mercado PA [address] [facility] [address] [place] [address] documented as of this encounter Visit Diagnoses Not on filedocumented in this encounter Care Teams Mri Technician Relationship Specialty Start Date End Date America Mercado, PA [address] [facility] [address] [place] [address] PCP - General Family Medicine 03/10/23 11/02/23 Mitul Richmond MD [address] [facility] [address] [place] [address] PCP - ACO Reach 03/13/23 Mitul Richmond MD [address] [facility] [address] [place] [address] PCP - General Internal Medicine 07/07/24 America Mercado PA [address] [facility] [address] [place] [address] Physician Director Writing Family Medicine 11/03/23 Venita Rosas, CDOY [address] [facility] [address] [place] [address] Registered Nurse Family Medicine 11/12/24 documented as of this encounter
--- OUTSIDE RECORDS SUMMARY | 2025-06-17 12:35 | XMS_ITS | Encounter Summary ---
Author Organization [facility] Address [address] [facility] [place] [address] Care Team Providers Care Dining Room Busser Name Role Phone Mitul Richmond MD Unavailable [phone] America Mercado Unavailable [phone] Mitul Richmond MD Primary Care Provider [phone] Venita Rosas RN Unavailable [phone] Encounter Details Date Type Department Care Team (Latest Contact Info) Description 06/15/2025 Travel Social History Tobacco Use Types Packs/Day Years [...] Questionnaire -2 Score 0 06/15/2025 1:44 PM EDMnie Linares LP N documented as of this encounter Plan of Treatment Upcoming Encounters Date Type Department Care Team (Late st Contact Info) Description 08/18/2025 11:30 AM EDT Procedure Visit [facility] [address] [place] [place] [address] Frandy Avitia, DPM [address] [facility] [address] [place] [address] 09/06/2025 2:00 PM EST Office Visit [facility] [place] [facility] [address] [place] [address] [place] [address] America Mercado PA [address] [place] [address] documented as of this encounter Visit Diagnoses Not on filedocumented in this encounter Care Teams Dining Room Busser Relationship Specialty Start Date End Date Mitul Richmond MD [address] [place] [address] PCP - ACO Reach 03/13/23 Mitul Richmond MD [address] [place] [address] PCP - General Internal Medicine 07/07/24 America Mercado PA [address] [place] [place] [address] Physician Starbucks Clerk Family Medicine 11/03/23 Venita Rosas, CODY [address] [place] [place] [address] Registered Nurse Family Medicine 11/12/24 documented as of this encounter
--- OUTSIDE RECORDS SUMMARY | 2025-06-17 12:35 | XMS_ITS | Encounter Summary ---
Author Organization [facility] Address [address] [place] [address] Care Team Providers Care Clerical Warehouse Worker Name Role Phone Mitul Richmond MD Unavailable [phone] America Mercado Unavailable [phone] Mitul Richmond MD Primary Care Provider [phone] Venita Rosas RN Unavailable [phone] Encounter Details Date Type Department Care Team (Late Contact Info) Description 07/22/2024 Clinisync Result Encounter [facility] External Department Unsolicited Maximo Walter, SHIPPING AGENT [address], [place] [address] Social History Tobacco Use Types Packs/Day Years [...] PODIATRY [address] [place] [address] [place] [address] Frandy Avitia DPM 3006 [facility] [place] [address] 09/06/2025 2:00 PM EST Office Visit [facility] [place] 112 [facility] 110 [place] [phone] America Mercado PA 112 [facility] 110 [place] [address] documented as of this encounter Procedures Procedure Name Priority Date/Time Associated Diagnosis Comments MR LUMBAR SPINE WO CON 07/22/2024 7:46 AM EDT documented in this encounter Results * MR LUMBAR SPINE WO CON (07/22/2024 7:46 AM EDT) Anatomical Region Laterality Modality Other 07/22/2024 7:46 AM EDT Narrative 07/22/2024 7:51 AM EDT [address] [address] Magnetic Resonance Report Signed Patient: DUTCH SANCHEZ Sr. MR#: [id number] : 1955 Acct:[id number] Age/Sex: 69 / M ADM Date: 07/21/24 Loc: MRI Attending Dr: Maximo Walter SHIPPING AGENT Ordering Physician: Maximo Walter NP Date of Service: 07/21/24 Procedure(s): MR lumbar spine wo con Accession Number(s): [id number] cc: MITUL RICHMOND ; Maximo Walter NP [address] [address] Patient Name: DUTCH SANCHEZ MRN: [id number] date: 1955 Sex: M Assigned Patient Location: MRI Current Patient Location: Accession/Order Number: [id number] Exam Date: 07/21/2024 14:00 Report Date: 07/22/2024 07:46 At the request of: MAXIMO WALTER Procedure: MR lumbar spine wo con MR lumbar spine wo con, 07/21/2024 2:00 PM EDT INDICATION: Lumbar radiculopathy M54.16 COMPARISON: Prior x-ray of the lumbar spine dated 12/31/2019 TECHNIQUE: Multiplanar, multisequential MRI images of lumbar spine were obtained without contrast. FINDINGS: For dictation purposes, the lowest complete disc space in the lumbar spine considered as L5-S1. There is loss of normal physiologic lumbar lordosis. The vertebral height is preserved. The conus medullaris is at the level of L1. No signal abnormality within the visualized spinal cord is noted. Level of T12-L1 is unremarkable. At the level of L1-L2, there are disc bulge with mild left neuroforaminal narrowing and no canal stenosis. At the level of L2-L3, there are disc bulge with mild left neuroforaminal narrowing and no canal stenosis. At the level of L3-4, there are disc bulge with yjcx-ti-oalpdjcg bilateral neuroforaminal narrowing and mild canal stenosis. There are Modic type I changes at the anterior aspect of L3-L4. There are facet joint arthrosis with ligamentum flavum thickening contributing to canal stenosis. At the level of L4-5, there are disc bulge with severe bilateral neuroforaminal narrowing and moderate canal stenosis.There are facet joint arthrosis with ligamentum flavum thickening contributing to canal stenosis. At the level of L5-S1, there are disc bulge with severe bilateral neuroforaminal narrowing and mild canal stenosis. Bilateral S1 nerve roots are in close contact with the disc bulge in the lateral recesses. The paraspinal muscles are unremarkable. MR/MR lumbar spine wo con IMPRESSION: Moderate degenerative changes of lumbar spine in particular at L3-L4, L4-L5 and L5-S1. Electronically authenticated by: ANAHY ORDONEZ Date: 07/22/2024 07:46 Dictated By: Anahy Ordonez M.D. Signed By: 07/22/24 0751 DD/ 0746 TD/TT: Hydrometeorologist: Procedure Note Radiology, Radiologist, - 07/22/2024 [place] [address] Magnetic Resonance Report Signed Patient: DUTCH SANCHEZ Radha DeniseMR#: [id number] : 6Acct:[id number] Age/Sex: 69 / MADM Date: 07/21/24 Loc: MRI Attending Dr: Maximo Walter SHIPPING AGENT Ordering Physician: Maximo Walter NP Date of Service: 07/21/24 Procedure(s): MR lumbar spine wo con Accession Number(s): [id number] cc: MITUL RICHMOND ; Maximo Walter NP [place] [id number] Patient Name: DUTCH SANCHEZ MRN: [id number]:[id number] date: 1955 Sex: M Assigned Patient Location: MRI Current Patient Location: Accession/Order Number: [id number] Exam Date: 07/21/2024 14:00 Report Date: 07/22/2024 07:46 At the request of: MAXIMO WALTER Procedure: MR lumbar spine wo con MR lumbar spine wo con, 07/21/2024 2:00 PM EDT INDICATION: Lumbar radiculopathy M54.16 COMPARISON: Prior x-ray of the lumbar spine dated 12/31/2019 TECHNIQUE: Multiplanar, multisequential MRI images of lumbar spine were obtained without contrast. FINDINGS: For dictation purposes, the lowest complete disc space in the lumbar spine considered as L5-S1. There is loss of normal physiologic lumbar lordosis. The vertebral heightis preserved. The conus medullaris is at the level of L1. No signal abnormality withinthe visualized spinal cord is noted. Level of T12-L1 is unremarkable. At the level of L1-L2, there are disc bulge with mild left neuroforaminal narrowing and no canal stenosis. At the level of L2-L3, there are disc bulge with mild left neuroforaminal narrowing and no canal stenosis. At the level of L3-4, there are disc bulge with vxme-zm-qaeyegsb bilateral neuroforaminal narrowing and mild canal stenosis. There are Modic type I changes at the anterior aspect of L3-L4. There are facet joint arthrosiswith ligamentum flavum thickening contributing to canal stenosis. At the level of L4-5, there are disc bulge with severe bilateral neuroforaminal narrowing and moderate canal stenosis.There are facet joint arthrosis with ligamentum flavum thickening contributing to canal stenosis. At the level of L5-S1, there are disc bulge with severe bilateral neuroforaminal narrowing and mild canal stenosis. Bilateral S1 nerve roots are in close contact with the disc bulge in the lateral recesses. The paraspinal muscles are unremarkable. MR/MR lumbar spine wo con IMPRESSION: Moderate degenerative changes of lumbar spine in particular at L3-L4,L4-L5 and L5-S1. Electronically authenticated by: ANAHY ORDONEZ Date: 07/22/2024 07:46 Dictated By: Anahy Ordonez M.D. Signed By:07/22/24 0751 DD/ 0746 TD/TT: Hydrometeorologist: Maximo Walter SHIPPING AGENT [facility] Final Result documented in this encounter Visit Diagnoses Not on filedocumented in this encounter Care Teams Clerical Warehouse Worker Relationship Specialty Start Date End Date Mitul Richmond MD [address] [facility] 110 [place] [address] PCP - ACO Reach 03/13/23 Mitul Richmond MD [address] [facility] 110 [place] [address] PCP - General Internal Medicine 07/07/24 America Mercado PA [address] [facility] 110 [place] [address] Physician Sales Service Executive Family Medicine 11/03/23 Venita Rosas, CODY [address] [facility] [address] [facility] 230 [place] [address] Registered Nurse Family Medicine 11/12/24 documented as of this encounter
--- OUTSIDE RECORDS SUMMARY | 2025-06-17 12:35 | XMS_ITS | Encounter Summary ---
Author Organization [facility] Address [address] [place] [address] Care Team Providers Care Cylinder Press Operator Apprentice Name Role Phone America Mercado Primary Care Provider [phone] Mitul Richmond MD Unavailable [phone] America Mercado Unavailable [phone] Mitul Richmond MD Primary Care Provider [phone] Venita Rosas RN Unavailable [phone] Encounter Details Date Type Department Care Team (Late Contact Info) Description 07/09/2023 Orders Only [facility] [place] [facility] [address] [place] [address] [place] [address] A, Unknown Practice [address] [place] [phone] Social History Tobacco Use Types Packs/Day [...] PODIATRY [address] [place] [address] [place] [address] Frandy Avitia, DPM 3006 [facility] 5 [place] [address] 09/06/2025 2:00 PM EST Office Visit [facility] [place] [address] [facility] 110 [place] [phone] America Mercado PA [address] [facility] 110 [place] [address] documented as of this encounter Procedures Procedure Name Priority Date/Time Associated Diagnosis Comments XR ELBOW 1-2 VIEWS LEFT Routine 07/07/2023 1:53 PM EDT documented in this encounter Results * XR elbow 1 or 2 views left (07/07/2023 1:53 PM EDT) Anatomical Region Laterality Modality Upper Extremities, Elbow Left Radiogr aphic Imaging us Unknown Practice A IMG XR PROCEDURES Final Resul t documented in this encounter Visit Diagnoses Not on filedocumented in this encounter Care Teams Cylinder Press Operator Apprentice Relationship Specialty Start Date End Date America Mercado PA [address] [facility] 110 [place] [address] PCP - General Family Medicine 03/10/23 11/02/23 Mitul Richmond MD [address] [facility] 110 [place] [address] PCP - ACO Reach 03/13/23 Mitul Richmond MD [address] [facility] 110 [place] [address] PCP - General Internal Medicine 07/07/24 America Mercado PA [address] [facility] 110 [place] [address] Physician Bird Keeper Family Medicine 11/03/23 Venita Rosas, RN [address] [facility] 230 [place] [address] Registered Nurse Family Medicine 11/12/24 documented as of this encounter
--- OUTSIDE RECORDS SUMMARY | 2025-06-17 12:35 | XMS_ITS | Encounter Summary ---
Author Organization [facility] Address [address] [place] [address] Care Team Providers Care Library Customer Service Clerk Name Role Phone America Mercado Primary Care Provider [phone] Mitul Richmond MD Unavailable [phone] America Mercado Unavailable [phone] Mitul Richmond MD Primary Care Provider [phone] Venita Rosas RN Unavailable [phone] Encounter Details Date Type Department Care Team (Late Contact Info) Description 07/02/2023 Abstract [facility] [place] [facility] [address] [facility] 110 [place] [address] America Mercado PA [address] [place] 110 [place] [address] Social History Tobacco Use Types Packs/Day Years [...] Upcoming Encounters Date Type Department Care Team ([facility] Contact Info) Description 08/18/2025 11:30 AM EDT Procedure Visit [facility] [address] [place] [address] [place] [address] Frandy Avitia DPM 3006 [facility] 5 [place] [address] 09/06/2025 2:00 PM EST Office Visit [facility] [place] [address] [facility] 110 [place] [phone] America Mercado PA [address] [facility] 110 [place] [address] documented as of this encounter Visit Diagnoses Not on filedocumented in this encounter Care Teams Library Customer Service Clerk Relationship Specialty Start Date End Date America Mercado, PA [address] [facility] 110 [place] [address] PCP - General Family Medicine 03/10/23 11/02/23 Mitul Richmond MD [address] [facility] 110 [place] [address] PCP - ACO Reach 03/13/23 Mitul Richmond MD [address] [facility] 110 [place] [address] PCP - General Internal Medicine 07/07/24 America Mercado PA [address] [facility] 110 [place] [address] Physician Sand Buffer Family Medicine 11/03/23 Venita Rosas, CODY [address] [facility] 230 [place] [address] Registered Nurse Family Medicine 11/12/24 documented as of this encounter
--- OUTSIDE RECORDS SUMMARY | 2025-06-17 12:36 | XMS_ITS | Encounter Summary ---
Author Organization [facility] Address [address] [facility] [place] [address] Care Team Providers Care Chronometer Tester Name Role Phone America Mercado Primary Care Provider [phone] Mitul Richmond MD Unavailable [phone] America Mercado Unavailable [phone] Mitul Richmond MD Primary Care Provider [phone] Venita Rosas RN Unavailable [phone] Encounter Details Date Type Department Care Team (Late Contact Info) Description 09/15/2023 Abstract [facility] [place] [facility] [address] [place] [address] [place] [address] America Mercado PA [address] [place] [address] [place] [phone] Social History Tobacco Use Types Packs/Day Years [...] PODIATRY [address] [place] [address] [place] [address] Frandy Avitia, DPJuan M 3006 [facility] 5 [place] [address] 09/06/2025 2:00 PM EST Office Visit [facility] [place] [facility] [address] [facility] 110 [place] [address] America Mercado PA [address] [facility] 110 [place] [address] documented as of this encounter Visit Diagnoses Not on filedocumented in this encounter Care Teams Chronometer Tester Relationship Specialty Start Date End Date America Mercado PA [address] [facility] 110 [place] [address] PCP - General Family Medicine 03/10/23 11/02/23 Mitul Richmond MD [address] [facility] 110 [place] [address] PCP - ACO Reach 03/13/23 Mitul Richmond MD [address] [facility] 110 [place] [address] PCP - General Internal Medicine 07/07/24 America Mercado PA [address] [facility] 110 [place] [address] Physician Bulk Tank Car Unloader Family Medicine 11/03/23 Venita Rosas, RN [address] [facility] 230 [place] [address] Registered Nurse Family Medicine 11/12/24 documented as of this encounter
--- OUTSIDE RECORDS SUMMARY | 2025-06-17 12:36 | XMS_ITS | Encounter Summary ---
Author Organization [facility] Address [address] [email or web address] [place] [address] Care Team Providers Care Brass Cutter Name Role Phone Mitul Richmond MD Unavailable [phone] America Mercado Unavailable [phone] Mitul Richmond MD Primary Care Provider [phone] Venita Rosas RN Unavailable [phone] Encounter Details Date Type Department Care Team (Late Contact Info) Description 04/05/2025 Abstract [facility] [place] [facility] [address] [place] 110 [place] [address] Mitul Richmond MD [address] [facility] 110 [place], [place] [phone] Social History Tobacco Use Types Packs/Day Years [...] CI PODIATRY [address] [place] 120 [place] [address] Frandy Avitia, DPJuan M 3006 [facility] 5 [place], [place] [address] 09/06/2025 2:00 PM EST Office Visit [facility] [place] [address] [facility] 110 [place] [address] America Mercado PA [address] [facility] 110 [place] [address] documented as of this encounter Visit Diagnoses Not on filedocumented in this encounter Care Teams Brass Cutter Relationship Specialty Start Date End Date Mitul Richmond MD [address] [facility] 110 [place] [address] PCP - ACO Reach 03/13/23 Mitul Richmond MD [address] [facility] 110 [place] [address] PCP - General Internal Medicine 07/07/24 America Mercado PA [address] [facility] 110 [place] [address] Physician Director Broadcast Family Medicine 11/03/23 Venita Rosas, CODY [address] [facility] 230 [place] [address] Registered Nurse Family Medicine 11/12/24 documented as of this encounter
--- OUTSIDE RECORDS SUMMARY | 2025-06-17 12:36 | XMS_ITS | Encounter Summary ---
Author Organization [facility] Address [address] [facility] [address] Care Team Providers Care Lead Technician Name Role Phone America Mercado Primary Care Provider [phone] Mitul Richmond MD Unavailable [phone] America Mercado Unavailable [phone] Mitul Richmond MD Primary Care Provider Venita Rosas RN Unavailable [phone] Encounter Details Date Type Department Care Team (Late Contact Info) Description 09/04/2023 Abstract [facility] [place] [facility] [address] [place] [address] [place] [address] America Mercado PA [address] [place] [address] [place] [id number] Social History Tobacco Use Types Packs/Day Years [...] PODIATRY [address] [place] [address] [place] [address] Frandy Avitia, DPJuan M 3006 [facility] 5 [place] [address] 09/06/2025 2:00 PM EST Office Visit [facility] [place] [facility] [address] [facility] 110 [place] [address] America Mercado PA [address] [facility] 110 [place] [address] documented as of this encounter Visit Diagnoses Not on filedocumented in this encounter Care Teams Lead Technician Relationship Specialty Start Date End Date America Mercado PA [address] [facility] 110 [place] [address] PCP - General Family Medicine 03/10/23 11/02/23 Mitul Richmond MD [address] [facility] 110 [place] [address] PCP - ACO Reach 03/13/23 Mitul Richmond MD [address] [facility] 110 [place] [address] PCP - General Internal Medicine 07/07/24 America Mercado PA [address] [facility] 110 [place] [address] Physician Co Founder Family Medicine 11/03/23 Venita Rosas, RN [address] [facility] 230 [place] [address] Registered Nurse Family Medicine 11/12/24 documented as of this encounter
--- OUTSIDE RECORDS SUMMARY | 2025-06-17 12:36 | XMS_ITS | Encounter Summary ---
Author Organization [facility] Address [address] [facility] [address] Care Team Providers Care Accounts Payable Representative Name Role Phone America Mercado Primary Care Provider [phone] Mitul Richmond MD Unavailable [phone] America Mercado Unavailable [phone] Mitul Richmond MD Primary Care Provider [phone] Venita Rosas RN Unavailable [phone] Encounter Details Date Type Department Care Team (Late Contact Info) Description 03/27/2023 Abstract [facility] [place] [facility] [address] [facility] 110 [place] [address] Mitul Richmond MD [address] [facility] 110 [place], [place] [phone] Social History Tobacco Use Types Packs/Day Years [...] Upcoming Encounters Date Type Department Care Team [facility] Contact Info) Description 08/18/2025 11:30 AM EDT Procedure Visit [facility] [address] [facility] 120 [place] [address] Frandy Avitia DPJuan M 3006 [facility] 5 [place] [address] 09/06/2025 2:00 PM EST Office Visit [facility] [place] [address] [facility] 110 [place] [phone] America Mercado PA [address] [facility] 110 [place] [address] documented as of this encounter Visit Diagnoses Not on filedocumented in this encounter Care Teams Accounts Payable Representative Relationship Specialty Start Date End Date America Mercado PA [address] [facility] 110 [place] [address] PCP - General Family Medicine 03/10/23 11/02/23 Mitul Richmond MD [address] [facility] 110 [place] [address] PCP - ACO Reach 03/13/23 Mitul Richmond MD [address] [facility] 110 [place] [address] PCP - General Internal Medicine 07/07/24 America Mercado PA [address] [facility] 110 [place] [address] Physician Boat Hop Family Medicine 11/03/23 Venita Rosas, CODY [address] [facility] [address] [place] [address] Registered Nurse Family Medicine 11/12/24 documented as of this encounter
--- OUTSIDE RECORDS SUMMARY | 2025-06-17 12:36 | XMS_ITS | Encounter Summary ---
Author Organization [facility] Address [address] [place] [address] Care Team Providers Care Vamp Cut Out Worker Name Role Phone America Mercado Primary Care Provider [phone] Mitul Richmond MD Unavailable [phone] America Mercado Unavailable [phone] Mitul Richmond MD Primary Care Provider [phone] Venita Rosas RN Unavailable [phone] Encounter Details Date Type Department Care Team (Late Contact Info) Description 07/07/2023 Clinisync Result Encounter N[facility] External Department Unsolicited [...] PODIATRY [address] [place] [id number] Frandy Avitia, DPM [address] [facility] [address] [place] [address] 09/06/2025 2:00 PM EST Office Visit [facility] [place] [facility] [address] [place] [address] America Mercado PA [address] [address] documented as of this encounter Procedures Procedure Name Priority Date/Time Associated Diagnosis Comments XR ELBOW LT 2V 07/07/2023 9:46 AM EDT documented in this encounter Results * XR ELBOW LT 2V (07/07/2023 9:46 AM EDT) Anatomical Region Laterality Modality Other 07/07/2023 9:46 AM EDT Narrative 07/07/2023 9:46 AM EDT [address] [address] XRay Report Signed Patient: DUTCH SANCHEZ Sr. MR#: [id number] : 1955 Acct:[id number] Age/Sex: 67 / M ADM Date: 07/07/23 Loc: RAD Attending Dr: Anni Wilson M.D. Ordering Physician: Anni Wilson M.D. Date of Service: 07/07/23 Procedure(s): XR elbow LT 2V Accession Number(s): [id number] cc: MITUL RICHMOND ; Anni Wilson M.D. [address] [address] Patient Name: DUTCH SANCHEZ MRN: [facility]:[id number] date: 1955 Sex: M Assigned Patient Location: [facility] Current Patient Location: RAD Accession/Order Number: [id number] Exam Date: 07/07/2023 09:17 Report Date: 07/07/2023 09:46 At the request of: ANNI WILSON Procedure: XR elbow LT 2V PROCEDURE: XR elbow LT 2V COMPARISON: 06/09/2023 HISTORY: S42.4512A, S42.402A FINDINGS: BONES:Stable complex distal humerus fracture with internal fixation using a medial and lateral plate and screws. Extensive bone formation with periosteal reaction. Anatomic alignment. No dislocation. SOFT TISSUES:Moderate dorsal soft tissue swelling EFFUSION:None visible. OTHER: Negative. XR/XR elbow LT 2V IMPRESSION: Stable healing distal humerus fracture with internal fixation Electronically authenticated by: HEYDI ELKINS Date: 07/07/2023 09:46 Dictated By: Heydi Elkins M.D. Signed By: 07/07/2349 DD/ 5 TD/TT: Heel Attacher: Procedure Note Radiology, Radiologist, MD - 07/11/2023 [place] [address] XRay Report Signed Patient: DUTCH SANCHEZ Sr.MR#: [id number] : 1955cct:[id number] Age/Sex: 67 / MADM Date: 07/07/23 Loc: RAD Attending Dr: Anni Wilson M.D. Ordering Physician: Anni Wilson M.D. Date of Service: 07/07/23 Procedure(s): XR elbow LT 2V Accession Number(s): [id number] cc: MITUL RICHMOND ; Anni Wilson M.D. [address] [place] [id number] Patient Name: DUTCH SANCHEZ MRN: [id number] date: 1955 Sex: M Assigned Patient Location: [facility] Current Patient Location: [facility] Accession/Order Number: [id number] Exam Date: 07/07/2023 09:17 Report Date: 07/07/2023 09:46 At the request of: ANNI WILSON Procedure: XR elbow LT 2V PROCEDURE: XR elbow LT 2V COMPARISON: 06/09/2023 HISTORY: S42.4512A, S42.402A FINDINGS: BONES:Stable complex distal humerus fracture with internal fixation usinga medial and lateral plate and screws. Extensive bone formation withperiosteal reaction. Anatomic alignment. No dislocation. SOFT TISSUES:Moderate dorsal soft tissue swelling EFFUSION:None visible. OTHER: Negative. XR/XR elbow LT 2V IMPRESSION: Stable healing distal humerus fracture with internal fixation Electronically authenticated by: HEYDI ELKINS Date: 07/07/2023 09:46 Dictated By: Heydi Elkins M.D. Signed By:07/07/2349 DD/ TD/TT: Heel Attacher: us Generic External Data Provider [facility] Final Result documented in this encounter Visit Diagnoses Not on filedocumented in this encounter Care Teams Vamp Cut Out Worker Relationship Specialty Start Date End Date America Mercado PA [address] [facility] 110 [place] [address] PCP - General Family Medicine 03/10/23 11/02/23 Mitul Richmond MD [address] [facility] 110 [place] [address] PCP - ACO Reach 03/13/23 Mitul Richmond MD [address] [facility] 110 [place] [address] PCP - General Internal Medicine 07/07/24 America Mercado PA [address] [facility] 110 [place] [address] Physician Wind Energy Technician Family Medicine 11/03/23 Venita Rosas, RN [address] [facility] [address] [place] [address] Registered Nurse Family Medicine 11/12/24 documented as of this encounter
--- OUTSIDE RECORDS SUMMARY | 2025-06-17 12:36 | XMS_ITS | Encounter Summary ---
Author Organization [facility] Address [address] [facility] [place] [address] Care Team Providers Care Archival Studies Professor Name Role Phone America Mercado Primary Care Provider Mitul Richmond MD Unavailable [phone] America Mercado Unavailable [phone] Mitul Richmond MD Primary Care Provider [phone] Venita Rosas RN Unavailable [phone] Encounter Details Date Type Department Care Team (Late Contact Info) Description 08/29/2023 Abstract [facility] [place] [facility] [address] [place] [address] America Mercado PA [address] [place] [id number] Social History Tobacco Use Types Packs/Day Years [...] PODIATRY [address] [place] [address] Frandy Avitia, DPJuan M 3006 [facility] 5 [place] [address] 09/06/2025 2:00 PM EST Office Visit [facility] [place] [facility] [address] [facility] 110 [place] [address] America Mercado PA [address] [facility] 110 [place] [address] documented as of this encounter Visit Diagnoses Not on filedocumented in this encounter Care Teams Archival Studies Professor Relationship Specialty Start Date End Date America Mercado PA [address] [facility] 110 [place] [address] PCP - General Family Medicine 03/10/23 11/02/23 Mitul Richmond MD [address] [facility] 110 [place] [address] PCP - ACO Reach 03/13/23 Mitul Richmond MD [address] [facility] 110 [place] [address] PCP - General Internal Medicine 07/07/24 America Mercado PA [address] [facility] 110 [place] [address] Physician Alcoholism Worker Family Medicine 11/03/23 Venita Rosas, RN [address] [facility] 230 [place] [address] Registered Nurse Family Medicine 11/12/24 documented as of this encounter
--- OUTSIDE RECORDS SUMMARY | 2025-06-17 12:36 | XMS_ITS | Encounter Summary ---
Author Organization [facility] Address [address] [facility] [place] [address] Care Team Providers Care Plastic Manager Name Role Phone Mitul Richmond MD Unavailable [phone] America Mercado Unavailable [phone] Mitul Richmond MD Primary Care Provider [phone] Venita Rosas RN Unavailable [phone] Encounter Details Date Type Department Care Team (Late Contact Info) Description 04/21/2025 Abstract [facility] [place] [facility] [address] [place] [address] Mitul Richmond MD [address] [place], [place] [address] Social History Tobacco Use Types Packs/Day Years [...] CI PODIATRY [address] [place] [address] Frandy Avitia, DPJuan M 3006 [facility] 5 [place], [place] [address] 09/06/2025 2:00 PM EST Office Visit [facility] [place] [address] [facility] 110 [place] [address] America Mercado PA [address] [facility] [address] [place] [address] documented as of this encounter Visit Diagnoses Not on filedocumented in this encounter Care Teams Plastic Manager Relationship Specialty Start Date End Date Mitul Richmond MD [address] [facility] [address] [place] [address] PCP - ACO Reach 03/13/23 Mitul Richmond MD [address] [facility] [address] [place] [address] PCP - General Internal Medicine 07/07/24 America Mercado PA [address] [facility] [address] [place] [address] Physician Blender/Braze Applicator Family Medicine 11/03/23 Venita Rosas, CODY [address] [facility] [address] [place] [address] Registered Nurse Family Medicine 11/12/24 documented as of this encounter
--- OUTSIDE RECORDS SUMMARY | 2025-06-17 12:36 | XMS_ITS | Encounter Summary ---
Author Organization [facility] Address [address] [facility] [place] [address] Care Team Providers Care Telecommunications Professional Name Role Phone America Mercado Primary Care Provider [phone] Mitul Richmond MD Unavailable [phone] America Mercado Unavailable [phone] Mitul Richmond MD Primary Care Provider [phone] Venita Rosas RN Unavailable [phone] Encounter Details Date Type Department Care Team (Late st Contact Info) Description 09/09/2023 Clinisync Result Encounter N[facility] External Department Unsolicited [...] EDT Procedure Visit [facility] CI PODIATRY 112 [facility] 120 [place] [phone] Frandy Avitia, DPM 3006 [facility] 5 [place] [address] 09/06/2025 2:00 PM EST Office Visit [facility] [place] [facility] 112 [facility] 110 [place] [address] America Mercado PA 112 [facility] 110 [place] [address] documented as of this encounter Procedures Procedure Name Priority Date/Time Associated Diagnosis Comments XR ELBOW 3+ VIEWS LEFT 09/09/2023 7:18 AM EST documented in this encounter Results * XR elbow 3+ views left (09/09/2023 7:18 AM EST) Anatomical Region Laterality Modality Upper Extremities, Elbow Left Radiogr aphic Imaging 09/09/2023 7:18 AM EST Narrative 09/09/2023 7:18 AM EST [address] [address] XRay Report Signed Patient: DUTCH SANCHEZ Sr. MR#: [id number] : 1955 Acct:[id number] Age/Sex: 68 / M ADM Date: 09/08/23 Loc: RAD Attending Dr: Mynor Wilson M.D. Ordering Physician: Mynor Wilson M.D. Date of Service: 09/08/23 Procedure(s): XR elbow LT min 3V Accession Number(s): [id number] cc: MITUL RICHMOND ; Mynor Wilson M.D. [address] [address] Patient Name: DUTCH SANCHEZ MRN: [id number] date: 1955 Sex: M Assigned Patient Location: RAD Current Patient Location: Accession/Order Number: [id number] Exam Date: 09/08/2023 10:25 Report Date: 09/09/2023 07:18 At the request of: MYNOR WILSON Procedure: XR elbow LT min 3V EXAM: XR elbow LT min 3V HISTORY: Displaced Simple Supracondylar Fracture Of Left Humerus COMPARISON: 06/02/2023. TECHNIQUE: Routine views of the XR elbow LT min 3V FINDINGS/ XR/XR elbow LT min 3V IMPRESSION: 1. Plate and screw fixation of the distal humerus. Callus formation about the supracondylar fracture site. Alignment is overall maintained. No evidence for hardware complication. 2. Posterior elbow swelling. 3. Mild degenerative changes at the elbow. Electronically authenticated by: KELI HAMM Date: 09/09/2023 07:18 Dictated By: Keli Hamm Signed By: 09/09/23719 DD/ 7 TD/TT: Residential Care Facility Manager: Procedure Note Radiology, Radiologist, MD - 09/10/2023 [place] [address] XRay Report Signed Patient: DUTCH SANCHEZ Sr.MR#: [id number] : 1955cct:[id number] Age/Sex: 68 / MADM Date: 09/08/23 Loc: [facility] Attending Dr: Mynor Wilson M.D. Ordering Physician: Mynor Wilson M.D. Date of Service: 09/08/23 Procedure(s): XR elbow LT min 3V Accession Number(s): [id number] cc: MITUL RICHMOND ; Mynor Wilson M.D. [address] [place] [address] Patient Name: DUTCH SANCHEZ MRN: [id number] date: 1955 Sex: M Assigned Patient Location: [facility] Current Patient Location: Accession/Order Number: [id number] Exam Date: 09/08/2023 10:25 Report Date: 09/09/2023 07:18 At the request of: MYNOR WILSON Procedure: XR elbow LT min 3V EXAM: XR elbow LT min 3V HISTORY: Displaced Simple Supracondylar Fracture Of Left Humerus COMPARISON: 06/02/2023. TECHNIQUE: Routine views of the XR elbow LT min 3V FINDINGS/ XR/XR elbow LT min 3V IMPRESSION: 1. Plate and screw fixation of the distal humerus. Callus formation aboutthe supracondylar fracture site. Alignment is overall maintained. No evidencefor hardware complication. 2. Posterior elbow swelling. 3. Mild degenerative changes at the elbow. Electronically authenticated by: KELI HAMM Date: 09/09/2023 07:18 Dictated By: Keli Hamm Signed By:09/09/23719 DD/ 7 TD/TT: Residential Care Facility Manager: us Generic External Data Provider IMG XR PROCEDURES Final Result documented in this encounter Visit Diagnoses Not on filedocumented in this encounter Care Teams Telecommunications Professional Relationship Specialty Start Date End Date America Mercado PA [address] [facility] 110 [place] [address] PCP - General Family Medicine 03/10/23 11/02/23 Mitul Richmond MD [address] [facility] 110 [place] [address] PCP - ACO Reach 03/13/23 Mitul Richmond MD [address] [facility] 110 [place] [address] PCP - General Internal Medicine 07/07/24 America Mercado PA [address] [facility] 110 [place] [address] Physician Enamel Finisher Family Medicine 11/03/23 Venita Rosas, CODY [address] [facility] 230 [place] [address] Registered Nurse Family Medicine 11/12/24 documented as of this encounter
--- OUTSIDE RECORDS SUMMARY | 2025-06-17 12:36 | XMS_ITS | Encounter Summary ---
Author Organization [facility] Address [address] [place] [address] Care Team Providers Care Assistant Pressman Name Role Phone Mitul Richmond MD Unavailable [phone] America Mercado Unavailable [phone] Mitul Richmond MD Primary Care Provider [phone] Venita Rosas RN Unavailable [phone] Encounter Details Date Type Department Care Team (Late Contact Info) Description 11/03/2023 Orders Only [facility] [place] [facility] [address] [place] [address] A, Unknown Practice [address] [place] [address] Social History Tobacco Use Types Packs/Day [...] [address] [place] [address] Frandy Avitia, DPM 300[address] [facility] [address] 5 [place] [address] 09/06/2025 2:00 PM EST Office Visit [facility] [place] [address] [facility] 110 [place] [phone] America Mercado PA [address] [facility] [address] [place] [address] documented as of this encounter Procedures Procedure Name Priority Date/Time Associated Diagnosis Comments ELECTROCARDIOGRAM REPORT Routine 024 10:06 AM EST documented in this encounter Results * Electrocardiogram Report (10/30/2023 10:06 AM EST) us Unknown Practice A IN CLINIC/BEDSIDE ORDERABLES Final Result documented in this encounter Visit Diagnoses Not on filedocumented in this encounter Care Teams Assistant Pressman Relationship Specialty Start Date End Date Mitul Richmond MD [address] [facility] [address] [place] [address] PCP - ACO Reach 03/13/23 Mitul Richmond MD [address] [facility] [address] [place] [address] PCP - General Internal Medicine 07/07/24 America Mercado PA [address] [facility] [address] [place] [address] Physician Keg Inspector Family Medicine 11/03/23 Venita Rosas, CODY [address] [place] [address] Registered Nurse Family Medicine 11/12/24 documented as of this encounter
--- OUTSIDE RECORDS SUMMARY | 2025-06-17 12:36 | XMS_ITS | Encounter Summary ---
Author Organization [facility] Address [address] [facility] [place] [address] Care Team Providers Care Statistical Typist Name Role Phone Mitul Richmond MD Unavailable [phone] America Mercado Unavailable [phone] Mitul Richmond MD Primary Care Provider [phone] Venita Rosas RN Unavailable [phone] Encounter Details Date Type Department Care Team (Late Contact Info) Description 06/02/2025 Abstract [facility] [place] [facility] [address] [place] [address] [place] [address] Mitul Richmond MD [address] [facility] 110 [place], [place] [address] Social History Tobacco Use Types Packs/Day Years [...] CI PODIATRY [address] [place] [address] [place] [address] Frandy Avitia, DPJuan M 3006 [facility] 5 [place], [place] [address] 09/06/2025 2:00 PM EST Office Visit [facility] [place] [address] [facility] 110 [place] [address] America Mercado PA [address] [facility] 110 [place] [address] documented as of this encounter Visit Diagnoses Not on filedocumented in this encounter Care Teams Statistical Typist Relationship Specialty Start Date End Date Mitul Richmond MD [address] [facility] 110 [place] [address] PCP - ACO Reach 03/13/23 Mitul Richmond MD [address] [facility] 110 [place] [address] PCP - General Internal Medicine 07/07/24 America Mercado PA [address] [facility] 110 [place] [address] Physician Securities Broker Family Medicine 11/03/23 Venita Rosas, CODY [address] [facility] 230 [place] [address] Registered Nurse Family Medicine 11/12/24 documented as of this encounter
--- OUTSIDE RECORDS SUMMARY | 2025-06-17 12:36 | XMS_ITS | Encounter Summary ---
Author Organization [facility] Address [address] [facility] [place] [address] Care Team Providers Care Sample Cutter Name Role Phone Mitul Richmond MD Unavailable [phone] America Mercado Unavailable [phone] Mitul Richmond MD Primary Care Provider [phone] Venita Rosas RN Unavailable [phone] Encounter Details Date Type Department Care Team (Late Contact Info) Description 04/08/2024 Abstract [facility] [place] [facility] [address] [place] [address] Marilee Oconnor MD [address] [place], [place] [address] Social History Tobacco Use Types Packs/Day Years Used Date Smoking Tobacco: Every Day Cigarettes 0.3 15 Smokeless Tobacco: Never Comments:Smoking 3 cigarette s a day as of 11/24/2023. H/o 1 PPD Alcohol Use Standard Drinks/Week [...] CI PODIATRY [address] [place] [address] Frandy Avitia, DPM 3006 [facility] 5 [place], [place] [address] 09/06/2025 2:00 PM EST Office [facility] [place] [facility] [address] [facility] 110 [place] [address] America Mercado PA [address] [facility] 110 [place] [address] documented as of this encounter Visit Diagnoses Not on filedocumented in this encounter Care Teams Sample Cutter Relationship Specialty Start Date End Date Mitul Richmond MD [address] [facility] 110 [place] [address] PCP - ACO Reach 03/13/23 Mitul Richmond MD [address] [facility] 110 [place] [address] PCP - General Internal Medicine 07/07/24 America Mercado PA [address] [facility] 110 [place] [address] Physician English Faculty Member Family Medicine 11/03/23 Venita Rosas, CODY [address] [facility] [address] [place] [address] Registered Nurse Family Medicine 11/12/24 documented as of this encounter
--- OUTSIDE RECORDS SUMMARY | 2025-06-17 12:36 | XMS_ITS | Encounter Summary ---
Author Organization [facility] Address [address] [facility] [place] [address] Care Team Providers Care Security Operations Center Operator Name Role Phone Mitul Richmond MD Unavailable [phone] America Mercado Unavailable [phone] Mitul Richmond MD Primary Care Provider [phone] Venita Rosas RN Unavailable [phone] Encounter Details Date Type Department Care Team (Late Contact Info) Description 04/06/2025 Abstract [facility] [place] [facility] [address] [place] 110 [place] [address] Mitul Richmond MD [address] [facility] 110 [place], [place] [address] Social History Tobacco Use Types Packs/Day Years [...] CI PODIATRY [address] [place] 120 [place] [address] Frandy Avitia, DPJuan M 3006 [facility] 5 [place], [place] [address] 09/06/2025 2:00 PM EST Office Visit [facility] [place] [address] [facility] 110 [place] [address] America Mercado PA [address] [facility] 110 [place] [address] documented as of this encounter Visit Diagnoses Not on filedocumented in this encounter Care Teams Security Operations Center Operator Relationship Specialty Start Date End Date Mitul Richmond MD [address] [facility] 110 [place] [address] PCP - ACO Reach 03/13/23 Mitul Richmond MD [address] [facility] 110 [place] [address] PCP - General Internal Medicine 07/07/24 America Mercado PA [address] [facility] [address] [place] [address] Physician Avionics Systems Integration Specialist Family Medicine 11/03/23 Venita Rosas, CODY [address] [facility] 230 [place] [address] Registered Nurse Family Medicine 11/12/24 documented as of this encounter
--- OUTSIDE RECORDS SUMMARY | 2025-06-17 12:36 | XMS_ITS | Encounter Summary ---
Author Organization [facility] Address [address] [place] [address] Care Team Providers Care Advertisement Compositor Name Role Phone America Mercado Primary Care Provider [phone] Mitul Richmond MD Unavailable [phone] America Mercado Unavailable [phone] Mitul Richmond MD Primary Care Provider [phone] Venita Rosas RN Unavailable [phone] Encounter Details Date Type Department Care Team (Late st Contact Info) Description 09/12/2023 Clinisync Result Encounter N[facility]S External Department Unsolicited [...] EDT Procedure Visit [facility] 112 [facility] [address] [place] [phone] Frandy Avitia, DPM 3006 [facility] 5 [place] [address] 09/06/2025 2:00 PM EST Office Visit [facility] [place] 112 [facility] 110 [place] [address] America Mercado PA 112 [facility] 110 [place] [address] documented as of this encounter Procedures Procedure Name Priority Date/Time Associated Diagnosis Comments CT HEAD/BRAIN WO 09/12/2023 1:22 PM EST documented in this encounter Results * CT HEAD/BRAIN WO (09/12/2023 1:22 PM EST) Anatomical Region Laterality Modality Radiographic Bernadette ging 09/12/2023 1:22 PM EST Narrative 09/12/2023 1:22 [place] [address] CT Scan Report Signed Patient: DUTCH SANCHEZ Sr. MR#: [id number] : 1955 Acct:[id number] Age/Sex: 68 / M ADM Date: 09/12/23 Loc: CT Attending Dr: Non-Staff Physician Precious Ordering Physician: Odalis Conley M.D. Date of Service: 09/12/23 Procedure(s): CT head/brain wo con Accession Number(s): [id number] cc: MITUL RICHMOND [address] [address] Patient Name: DUTCH SANCHEZ MRN: [id number] date: 1955 Sex: M Assigned Patient Location: CT Current Patient Location: CT Accession/Order Number: [id number] Exam Date: 09/12/2023 13:00 Report Date: 09/12/2023 13:22 At the request of: NON-STAFF PHYSICIAN Procedure: CT head/brain wo con EXAM: CT head/brain wo con HISTORY: Injury Of Head S09.90XA COMPARISON: CT brain 06/02/2023 TECHNIQUE: No IV contrast FINDINGS: The ventricles and basilar cisterns are within normal limits. No acute intra-axial or extra hemorrhage. No midline shift, mass effect or edema. Bifrontal atrophy noted moderate present previously. Widely patent foramen extending from the maxillary sinuses to the nasal cavity bilaterally. No fluid levels to suggest acute sinusitis. Mastoid air cells clear. The external and middle ear cavities are unremarkable. Left orbital prosthesis noted. CT/CT head/brain wo con IMPRESSION: No acute hemorrhage Electronically authenticated by: RAUL LANGFORD Date: 09/12/2023 13:22 Dictated By: Raul Langford M.D. Signed By: 09/12/23 1325 DD/ 1322 TD/TT: Accounting Software Specialist: Procedure Note Radiology, Radiologist, MD - 09/12/2023 [place] [address] CT Scan Report Signed Patient: DUTCH SANCHEZ Sr.MR#: [id number] : 1955cct:[id number] Age/Sex: 68 / MADM Date: 09/12/23 Loc: CT Attending Dr: Non-Staff Physician MEusebio Ordering Physician: Odalis Conley M.D. Date of Service: 09/12/23 Procedure(s): CT head/brain wo con Accession Number(s): [id number] cc: MITUL RICHMOND [place] [address] Patient Name: DUTCH SANCHEZ MRN: [facility]:[id number] date: 1955 Sex: M Assigned Patient Location: CT Current Patient Location: CT Accession/Order Number: [id number] Exam Date: 09/12/2023 13:00 Report Date: 09/12/2023 13:22 At the request of: NON-STAFF PHYSICIAN Procedure: CT head/brain wo con EXAM: CT head/brain wo con HISTORY: Injury Of Head S09.90XA COMPARISON: CT brain 06/02/2023 TECHNIQUE: No IV contrast FINDINGS: The ventricles and basilar cisterns are within normal limits. No acute intra-axial or extra hemorrhage. No midline shift, mass effect oredema. Bifrontal atrophy noted moderate present previously. Widely patent foramen extending from the maxillary sinuses to the nasalcavity bilaterally. No fluid levels to suggest acute sinusitis. Mastoid air cells clear. The external and middle ear cavities are unremarkable. Left orbital prosthesis noted. CT/CT head/brain wo con IMPRESSION: No acute hemorrhage Electronically authenticated by: RAUL LANGFORD Date: 09/12/2023 13:22 Dictated By: Raul Langford M.D. Signed By:09/12/23 1325 DD/ 1322 TD/TT: Accounting Software Specialist: Generic External Data Provider IMG XR PROCEDURES Final Result documented in this encounter Visit Diagnoses Not on filedocumented in this encounter Care Teams Advertisement Compositor Relationship Specialty Start Date End Date America Mercado PA [address] [facility] [address] [place] [address] PCP - General Family Medicine 03/10/23 11/02/23 Mitul Richmond MD [address] [facility] [address] [place] [address] PCP - ACO Reach 03/13/23 Mitul Richmond MD [address] [facility] [address] [place] [address] PCP - General Internal Medicine 07/07/24 America Mercado PA [address] [facility] [address] [place] [address] Physician Solidworks Drafter Family Medicine 11/03/23 Venita Rosas, RN [address] [place] [address] Registered Nurse Family Medicine 11/12/24 documented as of this encounter
--- OUTSIDE RECORDS SUMMARY | 2025-06-17 12:36 | XMS_ITS | Patient Health Record ---
Author Organization [facility] Address [address] [place] [address] Care Team Providers Care Manager Technology Name Role Phone UNASSIGNED, UNASSIGNED Primary Care Provider Xiomara daleilable Mynor Armstrong Unavailable [phone] Reason For Referral No Information Problems Problem Type SNOMED Code ICD Code Onset Dates Problem Status W/U Status Risk Notes Problem 396656271 Displaced simple supracondylar fracture without intercondylar fracture of left humerus, subsequent encounter for fracture with routine healing (S42.412D) Active confirmed Problem 58790591 Closed displaced simple supracondylar fracture of left humerus without intercondylar fracture, initial encounter (S42.412A) Active confirmed Problem 878663595 Closed fracture of distal end of left humerus, unspecified fracture morphology, initial encounter (S42.402A) Active confirmed Plan Of Treatment Pending Test Test Name Order Date PT/OT - Eval and Treat 09/08/2023 SCC- ELBOW 2 VIEW LEFT [id number] 07/21/2023 SCC- ELBOW 3 VIEW LEFT [id number] 09/08/2023 SCC- ELBOW 3 VIEW LEFT [id number] 05/24/2024 Insurance Providers Payer Name Payer Address Payer Phone Subscriber Number Group Number Insured Name Patient Relationship to Insured Coverage Start Date Coverage End [place] [address] [place] [address] [id number] DUTCH MONIQUE Sr Self - patient is the insured [facility] [employer] [address] [place] [address] [id number] DUTCH MONIQUE Sr Self - patient is the insured
--- OUTSIDE RECORDS SUMMARY | 2025-06-17 12:36 | XMS_ITS | Encounter Summary ---
Author Organization [facility] Address [address] [facility] [place] [address] Care Team Providers Care Oyster Washer Name Role Phone Mitul Richmond MD Unavailable [phone] America Mercado Unavailable [phone] Mitul Richmond MD Primary Care Provider [phone] Venita Rosas RN Unavailable [phone] Encounter Details Date Type Department Care Team (Late Contact Info) Description 11/24/2023 Clinisync Result Encounter NOMS External Department Unsolicited [...] EDT Procedure Visit [facility] 112 [facility] [place] [address] [place] [address] Frandy Avitia, DPM 3006 [facility] 5 [place] [address] 09/06/2025 2:00 PM EST Office Visit [facility] [place] [facility] 112 [facility] [address] [place] [address] America Mercado PA 112 [facility] 110 [place] [address] documented as of this encounter Procedures Procedure Name Priority Date/Time Associated Diagnosis Comments XR ELBOW 3+ VIEWS LEFT 11/24/2023 11:30 AM EST documented in this encounter Results * XR elbow 3+ views left (11/24/2023 11:30 AM EST) Anatomical Region Laterality Modality Upper Extremities, Elbow Left Radiogr aphic Imaging 11/24/2023 11:3 0 AM EST Narrative 11/24/2023 11:32 [place] [address] XRay Report Signed Patient: DUTCH SANCHEZ Sr. MR#: [id number] : 1955 Acct:[id number] Age/Sex: 68 / M ADM Date: 11/24/23 Loc: RAD Attending Dr: Mynor Wilson M.D. Ordering Physician: Mynor Wilson M.D. Date of Service: 11/24/23 Procedure(s): XR elbow LT min 3V Accession Number(s): [id number] cc: MITUL RICHMOND ; Mynor Wilson M.D. [address] [address] Patient Name: DUTCH SANCHEZ MRN: [id number] date: 1955 Sex: M Assigned Patient Location: RAD Current Patient Location: RAD Accession/Order Number: [id number] Exam Date: 11/24/2023 09:50 Report Date: 11/24/2023 11:30 At the request of: MYNOR WILSON Procedure: XR elbow LT min 3V EXAM: XR elbow LT min 3V. HISTORY: LEFT ELBOW PAIN. COMPARISON: Left elbow study dated 09/08/2023. TECHNIQUE: AP and lateral views of the left elbow were obtained. FINDINGS: Stabilizing plates and screws at the distal humeral level, similar to the prior study and unremarkable. No convincing evidence of acute fracture or dislocation. Calcification at the level of the distal humerus posteriorly likely related to healing. Faint calcification anteriorly and medially at the humeral level likely related to healing. Mild soft tissue swelling. Anterior fat pad is not well seen, no obvious posterior fat pad. XR/XR elbow LT min 3V IMPRESSION: Left elbow study demonstrates stable postoperative changes at the level of the distal humerus. Findings likely related to healing at the distal humeral level similar to the prior exam. Mild soft tissue swelling. Follow-up as needed. Electronically authenticated by: SAMUEL RANDOLPH Date: 11/24/2023 11:30 Dictated By: Samuel Randolph M.D. Signed By: 11/24/23 1132 DD/ 1130 TD/TT: Supervisor Continuous Weld Pipe Mill: Procedure Note Radiology, Radiologist, MD - 12/24/2023 [place] [address] XRay Report Signed Patient: DUTCH SANCHEZ Sr.MR#: [id number] : 1955cct:[id number] Age/Sex: 68 / MADM Date: 11/24/23 Loc: RAD Attending Dr: Mynor Wislon M.D. Ordering Physician: Mynor Wilson M.D. Date of Service: 11/24/23 Procedure(s): XR elbow LT min 3V Accession Number(s): [id number] cc: MITUL RICHMOND ; Mynor Wilson M.D. [address] [place] [id number] Patient Name: DUTCH SANCHEZ MRN: [id number] date: 1955 Sex: M Assigned Patient Location: [facility] Current Patient Location: [facility] Accession/Order Number: [id number] Exam Date: 11/24/2023 09:50 Report Date: 11/24/2023 11:30 At the request of: MYNOR WILSON Procedure: XR elbow LT min 3V EXAM: XR elbow LT min 3V. HISTORY: LEFT ELBOW PAIN. COMPARISON: Left elbow study dated 09/08/2023. TECHNIQUE: AP and lateral views of the left elbow were obtained. FINDINGS: Stabilizing plates and screws at the distal humeral level,similar to the prior study and unremarkable. No convincing evidence of acute fractureor dislocation. Calcification at the level of the distal humerus posteriorly likely related to healing. Faint calcification anteriorly and medially atthe humeral level likely related to healing. Mild soft tissue swelling.Anterior fat pad is not well seen, no obvious posterior fat pad. XR/XR elbow LT min 3V IMPRESSION: Left elbow study demonstrates stable postoperative changes at the level ofthe distal humerus. Findings likely related to healing at the distal humerallevel similar to the prior exam. Mild soft tissue swelling. Follow-up as needed. Electronically authenticated by: SAMUEL RANDOLPH Date: 11/24/2023 11:30 Dictated By: Samuel Randolph M.D. Signed By:11/24/23 1132 DD/ 1130 TD/TT: Supervisor Continuous [employer]: us Generic External Data Provider IMG XR PROCEDURES Final Result documented in this encounter Visit Diagnoses Not on filedocumented in this encounter Care Teams Oyster Washer Relationship Specialty Start Date End Date Mitul Richmond MD [address] [facility] [address] [place] [address] PCP - ACO Reach 03/13/23 Mitul Richmond MD [address] [facility] [address] [place] [address] PCP - General Internal Medicine 07/07/24 America Mercado PA [address] [facility] [address] [place] [address] Physician Gristmiller Family Medicine 11/03/23 Venita Rosas, CODY [address] [facility] [address] [place] [address] Registered Nurse Family Medicine 11/12/24 documented as of this encounter
--- OUTSIDE RECORDS SUMMARY | 2025-06-17 12:36 | XMS_ITS | Encounter Summary ---
Author Organization [facility] Address [address] [facility] [place] [address] Care Team Providers Care Grab Operator Name Role Phone America Mercado Primary Care Provider [phone] Mitul Richmond MD Unavailable [phone] America Mercado Unavailable [phone] Mitul Richmond MD Primary Care Provider [phone] Venita Rosas RN Unavailable [phone] Encounter Details Date Type Department Care Team (Late Contact Info) Description 03/27/2023 Abstract [facility] [place] [facility] 112 [facility] [address] [place] [address] Mitul Richmond MD [address] [facility] [address] [place], [place] [phone] Social History Tobacco Use Types Packs/Day Years [...] Upcoming Encounters Date Type Department Care Team ([facility] Contact Info) Description 08/18/2025 11:30 AM EDT Procedure Visit [facility] 112 [facility] 120 [place] [address] Frandy Avitia DPJuan M 3006 [facility] [address] [place] [address] 09/06/2025 2:00 PM EST Office Visit [facility] [place] [address] [facility] [address] [place] [address] America Mercado PA [address] [facility] [address] [place] [address] documented as of this encounter Visit Diagnoses Not on filedocumented in this encounter Care Teams Grab Operator Relationship Specialty Start Date End Date America Mercado PA [address] [facility] [address] [place] [address] PCP - General Family Medicine 03/10/23 11/02/23 Mitul Richmond MD [address] [facility] [address] [place] [address] PCP - ACO Reach 03/13/23 Mitul Richmond MD [address] [facility] [address] [place] [address] PCP - General Internal Medicine 07/07/24 America Mercado PA [address] [facility] [address] [place] [address] Physician Apartment Maintenance Supervisor Family Medicine 11/03/23 Venita Rosas, CODY [address] [facility] [address] [place] [address] Registered Nurse Family Medicine 11/12/24 documented as of this encounter
--- OUTSIDE RECORDS SUMMARY | 2025-06-17 12:36 | XMS_ITS | Encounter Summary ---
Author Organization [facility] Address [address] [facility] [place] [address] Care Team Providers Care Ice Guard Inspector Name Role Phone Mitul Richmond MD Unavailable [phone] America Mercado Unavailable [phone] Mitul Richmond MD Primary Care Provider [phone] Venita Rosas RN Unavailable [phone] Encounter Details Date Type Department Care Team (Late Contact Info) Description 02/25/2025 Abstract [facility] [place] [facility] [address] [place] [address] [place] [address] Mitul Richmond MD [address] [facility] [address] [place], [place] [address] Social History Tobacco Use Types Packs/Day Years Used Date Smoking Tobacco: Every Day Cigarettes 0.3 15 Smokeless Tobacco: Never Comments:Smoking 7 cigars a day as of 05/25/2024 and vapes. H/o 1 PPD Alcohol Use Standard Drinks/Week Comments Never 0 (1 standard drink = 0.6 oz pur e alcohol) PHQ-2 Answer Date Recorded Patient Health Questionnaire-2 Score 0 12/14/2024 Sex and Gender Information Value Date Recorded Sex Assigned at Not on file Legal Sex Male 7:20 PM EDT Gender Identity Not on file Sexual Orientation Not on file documented as of this encounter Plan of Treatment Upcoming Encounters Date Type Department Care Team (Late Contact Info) Description 08/18/2025 11:30 AM EDT Procedure Visit [facility] [address] [place] [address] [place] [address] Frandy Avitia, DPJuan M 3006 [facility] [address] [place], [place] [address] 09/06/2025 2:00 PM EST Office Visit [facility] [place] [address] [facility] [address] [place] [address] America Mercado PA [address] [facility] [address] [place] [address] documented as of this encounter Visit Diagnoses Not on filedocumented in this encounter Care Teams Ice Guard Inspector Relationship Specialty Start Date End Date Mitul Richmond MD [address] [facility] [address] [place] [address] PCP - ACO Reach 03/13/23 Mitul Richmond MD [address] [facility] [address] [place] [address] PCP - General Internal Medicine 07/07/24 America Mercado PA [address] [facility] [address] [place] [address] Physician Refrigerating Technician Family Medicine 11/03/23 Venita Rosas, CODY [address] [facility] [address] [place] [address] Registered Nurse Family Medicine 11/12/24 documented as of this encounter
--- OUTSIDE RECORDS SUMMARY | 2025-06-17 12:36 | XMS_ITS | Encounter Summary ---
Author Organization [facility] Address [address] [facility] [place] [address] Care Team Providers Care Recoating Machine Operator Name Role Phone Mitul Richmond MD Unavailable [phone] America Mercado Unavailable [phone] Mitul Richmond MD Primary Care Provider [phone] Venita Rosas RN Unavailable [phone] Encounter Details Date Type Department Care Team (Late Contact Info) Description 04/26/2025 Abstract [facility] [place] [facility] [address] [place] [address] [place] [address] Mitul Richmond MD [address] [facility] [address] [place], [place] [phone] Social History Tobacco Use Types Packs/Day Years [...] CI PODIATRY [address] [place] [address] [place] [address] Frandy Avitia, DPJuan M 3006 [facility] 5 [place], [place] [address] 09/06/2025 2:00 PM EST Office Visit [facility] [place] [address] [facility] [address] [place] [address] America Mercado PA [address] [facility] [address] [place] [address] documented as of this encounter Visit Diagnoses Not on filedocumented in this encounter Care Teams Recoating Machine Operator Relationship Specialty Start Date End Date Mitul Richmond MD [address] [facility] [address] [place] [address] PCP - ACO Reach 03/13/23 Mitul Richmond MD [address] [facility] [address] [place] [address] PCP - General Internal Medicine 07/07/24 America Mercado PA [address] [facility] [address] [place] [address] Physician Research Administrator Family Medicine 11/03/23 Venita Rosas, CODY [address] [facility] [address] [place] [address] Registered Nurse Family Medicine 11/12/24 documented as of this encounter
--- OUTSIDE RECORDS SUMMARY | 2025-06-17 12:36 | XMS_ITS | Encounter Summary ---
Author Organization [facility] Address [address] [place] [address] [place] [address] Care Team Providers Care Iron Bender Name Role Phone Mitul Richmond MD Unavailable [phone] America Mercado Unavailable [phone] Mitul Richmond MD Primary Care Provider [phone] Venita Rosas RN Unavailable [phone] Encounter Details Date Type Department Care Team (Late Contact Info) Description 11/10/2023 Abstract [facility] [place] [facility] [address] [facility] [address] [place] [address] Mitul Richmond MD 112 [facility] [address] [place] [id number] Social History Tobacco Use Types Packs/Day Years [...] PODIATRY [address] [place] [address] [place] [address] Frandy Avitia, MELO 3006 [facility] 5 [place] [address] 09/06/2025 2:00 PM EST Office Visit [facility] [place] [address] [facility] [address] [place] [address] America Mercado PA [address] [facility] [address] [place] [address] documented as of this encounter Visit Diagnoses Not on filedocumented in this encounter Care Teams Iron Bender Relationship Specialty Start Date End Date Mitul Richmond MD [address] [facility] [address] [place] [address] PCP - ACO Reach 03/13/23 Mitul Richmond MD [address] [facility] [address] [place] [address] PCP - General Internal Medicine 07/07/24 America Mercado, PA [address] [facility] [address] [place] [address] Physician Digital Hardware Design Engineer Family Medicine 11/03/23 Venita Rosas, RN [address] [facility] [address] [place] [address] Registered Nurse Family Medicine 11/12/24 documented as of this encounter
--- OUTSIDE RECORDS SUMMARY | 2025-06-17 12:36 | XMS_ITS | Encounter Summary ---
Author Organization [facility] Address [address] [place] [address] Care Team Providers Care Social Group Worker Name Role Phone America Mercado Primary Care Provider [phone] Mitul Richmond MD Unavailable [phone] America Mercado Unavailable [phone] Mitul Richmond MD Primary Care Provider [phone] Venita Rosas RN Unavailable [phone] Encounter Details Date Type Department Care Team (Late Contact Info) Description 06/02/2023 Orders Only [facility] [place] [facility] [address] [place] [address] A, Unknown Practice [address] [place] [address] Social History Tobacco Use Types Packs/Day [...] PODIATRY [address] [place] [address] Frandy Avitia, DPM [address] [facility] [place] [address] 09/06/2025 2:00 PM EST Office Visit [facility] [place] [facility] [address] [place] [address] America Mercado PA [address] [place] [address] documented as of this encounter Procedures Procedure Name Priority Date/Time Associated Diagnosis Comments XR ELBOW 3+ VIEWS LEFT Routine 06/02/2023 2:33 PM EDT XR WRIST 3+ VIEWS LEFT Routine 06/02/2023 2:31 PM EDT XR FOREARM 2 VIEWS LEFT Routine 06/02/2023 2:[address] SCAN : HEAD, WITHOUT CONTRAST Routine 06/02/2023 10:[address] ABDOMEN & PELVIS WO Routine 06/02/2023 8:[address] CERVICAL SPINE WO IV CONTRAST Routine 06/02/2023 8:21 AM EDT documented in this encounter Results * XR elbow 3+ views left (06/02/2023 2:33 PM EDT) Anatomical Region Laterality Modality Upper Extremities, Elbow Left Radiogr aphic Imaging us Unknown Practice A IMG XR PROCEDURES Final Resul t * XR wrist 3+ views left (06/02/2023 2:31 PM EDT) Anatomical Region Laterality Modality Upper Extremities, Wrist Left Radiogr aphic Imaging us Unknown Practice A IMG XR PROCEDURES Final Resul t * XR forearm 2 views left (06/02/2023 2:28 PM EDT) Anatomical Region Laterality Modality Upper Extremities, Forearm Left Radio graphic Imaging us Unknown Practice A IMG XR PROCEDURES Final Resul t * CT SCAN : HEAD, WITHOUT CONTRAST (06/02/2023 10:51 AM EDT) Anatomical Region Laterality Modality Radiographic Brenadette ging us Unknown Practice A IMG XR PROCEDURES Final Resul t * CT ABDOMEN & PELVIS WO (06/02/2023 8:21 AM EDT) Anatomical Region Laterality Modality Radiographic Bernadette ging us Unknown Practice A IMG XR PROCEDURES Final Resul t * CT cervical spine wo IV contrast (06/02/2023 8:21 AM EDT) Anatomical Region Laterality Modality Spine, C-spine Computed Tomogra phy us Unknown Practice A IMG CT PROCEDURES Final Resul t documented in this encounter Visit Diagnoses Not on filedocumented in this encounter Care Teams Social Group Worker Relationship Specialty Start Date End Date America Mercado PA [address] [facility] 110 [place] [address] PCP - General Family Medicine 03/10/23 11/02/23 Mitul Richmond MD [address] [facility] 110 [place] [address] PCP - ACO Reach 03/13/23 Mitul Richmond MD [address] [facility] 110 [place] [address] PCP - General Internal Medicine 07/07/24 America Mercado PA [address] [facility] 110 [place] [address] Physician Manager Cable Family Medicine 11/03/23 Venita Rosas, RN [address] [place] [address] Registered Nurse Family Medicine 11/12/24 documented as of this encounter
--- OUTSIDE RECORDS SUMMARY | 2025-06-17 12:36 | XMS_ITS | Encounter Summary ---
Author Organization [facility] Address [address] [facility] [place] [address] Care Team Providers Care Power Tong Operator Name Role Phone America Mercado Primary Care Provider [phone] Mitul Richmond MD Unavailable [phone] America Mercado Unavailable [phone] Mitul Richmnod MD Primary Care Provider [phone] Venita Rosas RN Unavailable [phone] Encounter Details Date Type Department Care Team (Late Contact Info) Description 03/10/2023 Abstract [facility] [place] [facility] [address] [facility] [address] [place] [address] Ryan Segura, PT [address] [place] [address] Social History Tobacco Use Types Packs/Day Years Used Date Smoking Tobacco: Every Day Cigarettes Smokeless Tobacco: Never Tobacco Cessation:Ready to Q uit: Not Asked; Counseling Given: Not Answered Alcohol Use Standard Drinks/Week Comments Never 0 [...] CI PODIATRY [address] [place] [phone] Frandy Avitia, DPM [address] [facility] 5 [place] [address] 09/06/2025 2:00 PM EST Office [facility] [place] [facility] [address] [facility] 110 [place] [address] America Mercado PA [address] [facility] 110 [place] [address] documented as of this encounter Visit Diagnoses Not on filedocumented in this encounter Care Teams Power Tong Operator Relationship Specialty Start Date End Date America Mercado PA [address] [facility] 110 [place] [address] PCP - General Family Medicine 03/10/23 11/02/23 Mitul Richmond MD [address] [facility] 110 [place] [address] PCP - ACO Reach 03/13/23 Mitul Richmond MD [address] [facility] 110 [place] [address] PCP - General Internal Medicine 07/07/24 America Mercado PA [address] [facility] 110 [place] [address] Physician Scouring Train Operator Chief Family Medicine 11/03/23 Venita Rosas, CODY [address] [facility] 230 [place] [address] Registered Nurse Family Medicine 11/12/24 documented as of this encounter
--- OUTSIDE RECORDS SUMMARY | 2025-06-17 12:36 | XMS_ITS | Encounter Summary ---
Author Organization [facility] Address [address] [facility] [place] [address] Care Team Providers Care Tank Truck Engine Mechanic Name Role Phone America Mercado Primary Care Provider Mitul Richmond MD Unavailable [phone] America Mercado Unavailable [phone] Mitul Richmond MD Primary Care Provider [phone] Venita Rosas RN Unavailable [phone] Encounter Details Date Type Department Care Team (Late Contact Info) Description 08/29/2023 Abstract [facility] [place] [facility] [address] [place] [address] America Mercado PA [address] [place] [id number] Social History Tobacco Use Types Packs/Day Years [...] PODIATRY [address] [place] [address] Frandy Avitia, DPJuan M [address]006 [facility] [place] 5 [place] [address] 09/06/2025 2:00 PM EST Office Visit [facility] [place] [facility] [address] [facility] 110 [place] [address] America Mercado PA [address] [facility] 110 [place] [address] documented as of this encounter Visit Diagnoses Not on filedocumented in this encounter Care Teams Tank Truck Engine Mechanic Relationship Specialty Start Date End Date America Mercado PA [address] [facility] 110 [place] [address] PCP - General Family Medicine 03/10/23 11/02/23 Mitul Richmond MD [address] [facility] 110 [place] [address] PCP - ACO Reach 03/13/23 Mitul Richmond MD [address] [facility] 110 [place] [address] PCP - General Internal Medicine 07/07/24 America Mercado PA [address] [facility] 110 [place] [address] Physician Blister Packing Machine Tender Family Medicine 11/03/23 Venita Rosas, RN [address] [facility] 230 [place] [address] Registered Nurse Family Medicine 11/12/24 documented as of this encounter
--- OUTSIDE RECORDS SUMMARY | 2025-06-17 12:36 | XMS_ITS | Encounter Summary ---
Author Organization [facility] Address [address] [facility] [place] [address] Care Team Providers Care Product Marketing Coordinator Name Role Phone Mitul Richmond MD Unavailable [phone] America Mercado Unavailable [phone] Mitul Richmond MD Primary Care Provider [phone] Venita Rosas RN Unavailable [phone] Encounter Details Date Type Department Care Team (Late Contact Info) Description 05/30/2025 Abstract [facility] [place] [facility] [address] [place] [address] [place] [address] Mitul Richmond MD [address] [facility] 110 [place], [place] [id number] Social History Tobacco Use Types Packs/Day Years [...] CI PODIATRY [address] [place] [address] [place] [address] Frandy Avitia, DPJuan M 3006 [facility] 5 [place], [place] [address] 09/06/2025 2:00 PM EST Office Visit [facility] [place] [address] [facility] 110 [place] [address] America Mercado PA [address] [facility] 110 [place] [address] documented as of this encounter Visit Diagnoses Not on filedocumented in this encounter Care Teams Product Marketing Coordinator Relationship Specialty Start Date End Date Mitul Richmond MD [address] [facility] 110 [place] [address] PCP - ACO Reach 03/13/23 Mitul Richmond MD [address] [facility] 110 [place] [address] PCP - General Internal Medicine 07/07/24 America Mercado PA [address] [facility] 110 [place] [address] Physician Fretted Instruments Inspector Family Medicine 11/03/23 Venita Rosas, CODY [address] [facility] 230 [place] [address] Registered Nurse Family Medicine 11/12/24 documented as of this encounter
--- OUTSIDE RECORDS SUMMARY | 2025-06-17 12:36 | XMS_ITS | Encounter Summary ---
Author Organization [facility] Address [address] [facility] [place] [address] Care Team Providers Care Software Intern Name Role Phone Mitul Richmond MD Unavailable [phone] America Mercado Unavailable [phone] Mitul Richmond MD Primary Care Provider [phone] Venita Rosas RN Unavailable [phone] Encounter Details Date Type Department Care Team (Late Contact Info) Description 02/10/2025 Abstract [facility] [place] [facility] [address] [place] [address] Mitul Richmond MD [address] [place], [place] [phone] Social History Tobacco Use Types Packs/Day Years [...] CI PODIATRY [address] [place] [address] Frandy Avitia, DPJuan M 3006 [facility] 5 [place], [place] [address] 09/06/2025 2:00 PM EST Office Visit [facility] [place] [facility] [address] [facility] 110 [place] [address] America Mercado PA [address] [facility] 110 [place] [address] documented as of this encounter Visit Diagnoses Not on filedocumented in this encounter Care Teams Software Intern Relationship Specialty Start Date End Date Mitul Richmond MD [address] [facility] 110 [place] [address] PCP - ACO Reach 03/13/23 Mitul Richmond MD [address] [facility] 110 [place] [address] PCP - General Internal Medicine 07/07/24 America Mercado PA [address] [facility] 110 [place] [address] Physician Chief Deputy Family Medicine 11/03/23 Venita Rosas, CODY [address] [facility] 230 [place] [address] Registered Nurse Family Medicine 11/12/24 documented as of this encounter
--- OUTSIDE RECORDS SUMMARY | 2025-06-17 12:36 | XMS_ITS | Encounter Summary ---
Author Organization [facility] Address [address] [place] [address] Care Team Providers Care Asbestos Shingle Inspector Name Role Phone Mitul Richmond MD Unavailable [phone] America Mercado Unavailable [phone] Mitul Richmond MD Primary Care Provider [phone] Venita Rosas RN Unavailable [phone] Encounter Details Date Type Department Care Team (Late Contact Info) Description 05/12/2025 Abstract [facility] [place] [facility] [address] [place] [address] Mitul Richmond MD [address] [place], [place] [address] Social History Tobacco Use Types Packs/Day Years [...] CI PODIATRY [address] [place] [address] Frandy Avitia, DPJuan M 3006 [facility] 5 [place], [place] [address] 09/06/2025 2:00 PM EST Office Visit [facility] [place] [address] [facility] 110 [place] [address] America Mercado PA [address] [facility] 110 [place] [address] documented as of this encounter Visit Diagnoses Not on filedocumented in this encounter Care Teams Asbestos Shingle Inspector Relationship Specialty Start Date End Date Mitul Richmond MD [address] [facility] 110 [place] [address] PCP - ACO Reach 03/13/23 Mitul Richmond MD [address] [facility] 110 [place] [address] PCP - General Internal Medicine 07/07/24 America Mercado PA [address] [facility] 110 [place] [address] Physician Technical Services Specialist Family Medicine 11/03/23 Venita Rosas, CODY [address] [facility] 230 [place] [address] Registered Nurse Family Medicine 11/12/24 documented as of this encounter
--- OUTSIDE RECORDS SUMMARY | 2025-06-17 12:36 | XMS_ITS | Encounter Summary ---
Author Organization [facility] Address [address] [facility] [place] [address] Care Team Providers Care Dispatcher Street Department Name Role Phone America Mercado Primary Care Provider Mitul Richmond MD Unavailable [phone] America Mercado Unavailable [phone] Mitul Richmond MD Primary Care Provider [phone] Venita Rosas RN Unavailable [phone] Encounter Details Date Type Department Care Team (Late Contact Info) Description 05/26/2023 Abstract [facility] [place] [facility] [address] [facility] 110 [place] [address] America Mercado PA [address] [place] [address] Social History Tobacco Use Types Packs/Day Years [...] Upcoming Encounters Date Type Department Care Team ([facility] Contact Info) Description 08/18/2025 11:30 AM EDT Procedure Visit [facility] [address] [place] [address] Frandy Avitia DPM 3006 [facility] 5 [place] [address] 09/06/2025 2:00 PM EST Office Visit [facility] [place] [facility] [address] [facility] 110 [place] [address] America Mercado PA [address] [facility] 110 [place] [address] documented as of this encounter Visit Diagnoses Not on filedocumented in this encounter Care Teams Dispatcher Street Department Relationship Specialty Start Date End Date America Mercado, PA [address] [facility] 110 [place] [address] PCP - General Family Medicine 03/10/23 11/02/23 Mitul Richmond MD [address] [facility] 110 [place] [address] PCP - ACO Reach 03/13/23 Mitul Richmond MD [address] [facility] 110 [place] [address] PCP - General Internal Medicine 07/07/24 America Mercado PA [address] [facility] 110 [place] [address] Physician Barrel Rib Matting Machine Operator Family Medicine 11/03/23 Venita Rosas, CODY [address] [facility] [address] [place] [address] Registered Nurse Family Medicine 11/12/24 documented as of this encounter
--- OUTSIDE RECORDS SUMMARY | 2025-06-17 12:36 | XMS_ITS | Encounter Summary ---
Author Organization [facility] Address [address] [place] [address] Care Team Providers Care Enamel Buffer Name Role Phone Mitul Richmond MD Unavailable [phone] America Mercado Unavailable [phone] Mitul Richmond MD Primary Care Provider [phone] Venita Rosas RN Unavailable [phone] Encounter Details Date Type Department Care Team (Late Contact Info) Description 11/24/2023 Orders Only [facility] [place] [facility] [address] [place] [address] A, Unknown Practice [address] [place] [address] Social History Tobacco Use Types Packs/Day [...] PODIATRY [address] [place] [address] Frandy Avitia, DPJuan M [address]006 [facility] [address] [place] [address] 09/06/2025 2:00 PM EST Office Visit [facility] [place] [address] [facility] 110 [place] [address] America Mercado PA [address] [facility] 110 [place] [address] documented as of this encounter Procedures Procedure Name Priority Date/Time Associated Diagnosis Comments XR ELBOW 3+ VIEWS LEFT Routine 11/24/2023 1:11 PM EST documented in this encounter Results * XR elbow 3+ views left (11/24/2023 1:11 PM EST) Anatomical Region Laterality Modality Upper Extremities, Elbow Left Radiogr aphic Imaging us Unknown Practice A IMG XR PROCEDURES Final Resul t documented in this encounter Visit Diagnoses Not on filedocumented in this encounter Care Teams Enamel Buffer Relationship Specialty Start Date End Date Mitul Richmond MD [address] [facility] 110 [place] [address] PCP - ACO Reach 03/13/23 Mitul Richmond MD [address] [facility] 110 [place] [address] PCP - General Internal Medicine 07/07/24 America Mercado PA [address] [facility] 110 [place] [address] Physician Military Aircraft Designer Family Medicine 11/03/23 Venita Rosas, CODY [address] [facility] [address] [place] [id number] Registered Nurse Family Medicine 11/12/24 documented as of this encounter
--- OUTSIDE RECORDS SUMMARY | 2025-06-17 12:36 | XMS_ITS | Encounter Summary ---
Author Organization [facility] Address [address] [facility] [place] [address] Care Team Providers Care Tissue Inserter Name Role Phone America Mercado Primary Care Provider [phone] Mitul Richmond MD Unavailable [phone] America Mercado Unavailable [phone] Mitul Richmond MD Primary Care Provider [phone] Venita Rosas RN Unavailable [phone] Encounter Details Date Type Department Care Team (Late Contact Info) Description 06/03/2023 Orders Only [facility] [place] [facility] [address] [place] [address] A, Unknown Practice [address] [place] [address] Social History Tobacco Use Types Packs/Day [...] PODIATRY [address] [place] [address] Frandy Avitia, DPM 3006 [facility] 5 [place] [address] 09/06/2025 2:00 PM EST Office Visit [facility] [place] [address] [facility] 110 [place] [address] America Mercaod PA [address] [facility] 110 [place] [address] documented as of this encounter Procedures Procedure Name Priority Date/Time Associated Diagnosis Comments ELECTROCARDIOGRAM REPORT Routine 023 1:20 PM EDT documented in this encounter Results * Electrocardiogram Report (06/02/2023 1:20 PM EDT) us Unknown Practice A IN CLINIC/BEDSIDE ORDERABLES Final Result documented in this encounter Visit Diagnoses Not on filedocumented in this encounter Care Teams Tissue Inserter Relationship Specialty Start Date End Date America Mercado PA [address] [facility] 110 [place] [address] PCP - General Family Medicine 03/10/23 11/02/23 Mitul Richmond MD [address] [facility] 110 [place] [address] PCP - ACO Reach 03/13/23 Mitul Richmond MD [address] [facility] 110 [place] [address] PCP - General Internal Medicine 07/07/24 America Mercado PA [address] [facility] 110 [place] [address] Physician Postbed Stitcher Family Medicine 11/03/23 Venita Rosas, RN [address] [place] [address] Registered Nurse Family Medicine 11/12/24 documented as of this encounter
--- OUTSIDE RECORDS SUMMARY | 2025-06-17 12:36 | XMS_ITS | Encounter Summary ---
Author Organization [facility] Address [address] [facility] [place] [address] Care Team Providers Care Recovery Analyst Name Role Phone Mitul Richmond MD Unavailable [phone] America Mercado Unavailable [phone] Mitul Richmond MD Primary Care Provider [phone] Venita Rosas RN Unavailable [phone] Encounter Details Date Type Department Care Team (Late Contact Info) Description 12/08/2024 Abstract [facility] [place] [facility] [address] [place] [address] [place] [address] Mitul Richmond MD [address] [facility] 110 [place], [place] [address] Social History Tobacco Use Types Packs/Day Years Used Date Smoking Tobacco: Every Day Cigarettes 0.3 15 Smokeless Tobacco: Never Comments:Smoking 7 cigars a day as of 05/25/2024 and vapes. H/o 1 PPD Alcohol Use Standard Drinks/Week Comments Never 0 (1 standard drink = 0.6 oz pur e alcohol) PHQ-2 Answer Date Recorded Patient Health Questionnaire-2 Score 0 08/31/2024 Sex and Gender Information Value Date Recorded Sex Assigned at Not on file Legal Sex Male 7:20 PM EDT Gender Identity Not on file Sexual Orientation Not on file documented as of this encounter Plan of Treatment Upcoming Encounters Date Type Department Care Team (Late Contact Info) Description 08/18/2025 11:30 AM EDT Procedure Visit [facility] [address] [place] [address] [place] [address] Frandy Avitia, DPJuan M 3006 [facility] [place], [place] [address] 09/06/2025 2:00 PM EST Office Visit [facility] [place] [facility] [address] [facility] 110 [place] [address] America Mercado PA [address] [facility] 110 [place] [address] documented as of this encounter Visit Diagnoses Not on filedocumented in this encounter Care Teams Recovery Analyst Relationship Specialty Start Date End Date Mitul Richmond MD [address] [facility] 110 [place] [address] PCP - ACO Reach 03/13/23 Mitul Richmond MD [address] [facility] [address] [place] [address] PCP - General Internal Medicine 07/07/24 America Mercado PA [address] [facility] 110 [place] [address] Physician Contracting Executive Family Medicine 11/03/23 Venita Rosas, CODY [address] [facility] [address] [place] [address] Registered Nurse Family Medicine 11/12/24 documented as of this encounter
--- OUTSIDE RECORDS SUMMARY | 2025-06-17 12:36 | XMS_ITS | Encounter Summary ---
Author Organization [facility] Address [address] [place] [address] Care Team Providers Care Day Porter Name Role Phone America Mercado Primary Care Provider [phone] Mitul Richmond MD Unavailable [phone] America Mercado Unavailable [phone] Mitul Richmond MD Primary Care Provider [phone] Venita Rosas RN Unavailable [phone] Encounter Details Date Type Department Care Team (Late Contact Info) Description 03/13/2023 Abstract [facility] [place] [facility] [address] [place] [address] [place] [address] Darrin Castro, PT [address] [place] [address] Social History Tobacco Use Types Packs/Day Years [...] Upcoming Encounters Date Type Department Care Team ([facility] Contact Info) Description 08/18/2025 11:30 AM EDT Procedure Visit [facility] [address] [place] [address] [place] [address] Frandy Avitia DPJuan M 3006 [facility] 5 [place] [address] 09/06/2025 2:00 PM EST Office Visit [facility] [place] [address] [facility] 110 [place] [address] America Mercado PA [address] [facility] 110 [place] [address] documented as of this encounter Visit Diagnoses Not on filedocumented in this encounter Care Teams Day Porter Relationship Specialty Start Date End Date America Mercado, PA [address] [facility] 110 [place] [address] PCP - General Family Medicine 03/10/23 11/02/23 Mitul Richmond MD [address] [facility] [address] [place] [address] PCP - ACO Reach 03/13/23 Mitul Richmond MD [address] [facility] 110 [place] [address] PCP - General Internal Medicine 07/07/24 America Mercado PA [address] [facility] 110 [place] [address] Physician Commission Clerk Family Medicine 11/03/23 Venita Rosas, CODY [address] [facility] [address] [place] [address] Registered Nurse Family Medicine 11/12/24 documented as of this encounter
--- OUTSIDE RECORDS SUMMARY | 2025-06-17 12:36 | XMS_ITS | Encounter Summary ---
Author Organization [facility] Address [address] [facility] [place] [address] Care Team Providers Care Resume Specialist Name Role Phone Mitul Richmond MD Unavailable [phone] America Mercado Unavailable [phone] Mitul Richmond MD Primary Care Provider [phone] Venita Rosas RN Unavailable [phone] Encounter Details Date Type Department Care Team (Late Contact Info) Description 09/02/2024 Abstract [facility] [place] [facility] [address] [place] [address] [place] [address] Mitul Richmond MD [address] [facility] 110 [place], [place] [address] Social History Tobacco Use Types Packs/Day Years [...] CI PODIATRY [address] [place] [address] [place] [address] Frandy Avitia, DPJuan M 3006 [facility] 5 [place], [place] [address] 09/06/2025 2:00 PM EST Office Visit [facility] [place] [address] [facility] 110 [place] [address] America Mercado PA [address] [facility] 110 [place] [address] documented as of this encounter Visit Diagnoses Not on filedocumented in this encounter Care Teams Resume Specialist Relationship Specialty Start Date End Date Mitul Richmond MD [address] [facility] [address] [place] [address] PCP - ACO Reach 03/13/23 Mitul Richmond MD [address] [facility] [address] [place] [address] PCP - General Internal Medicine 07/07/24 America Mercado PA [address] [facility] 110 [place] [address] Physician Data Processing Consultant Family Medicine 11/03/23 Venita Rosas, CODY [address] [facility] 230 [place] [address] Registered Nurse Family Medicine 11/12/24 documented as of this encounter
--- OUTSIDE RECORDS SUMMARY | 2025-06-17 12:36 | XMS_ITS | Encounter Summary ---
Author Organization [facility] Address [address] [facility] [address] Care Team Providers Care Independent Distributor Name Role Phone Mitul Richmond MD Unavailable [phone] America Mercado Unavailable [phone] Mitul Richmond MD Primary Care Provider [phone] Venita Rosas RN Unavailable [phone] Encounter Details Date Type Department Care Team (Late Contact Info) Description 12/09/2023 Abstract [facility] [place] [facility] [address] [place] [address] [place] [address] America Mercado PA [address] [place] [address] [place], [place] [address] Social History Tobacco Use Types Packs/Day Years [...] CI PODIATRY [address] [place] [address] [place] [address] Frandy Avitia, DPM 3006 [facility] 5 [place], [place] [address] 09/06/2025 2:00 PM EST [facility] [place] [facility] [address] [facility] 110 [place] [address] America Mercado PA [address] [facility] 110 [place] [address] documented as of this encounter Visit Diagnoses Not on filedocumented in this encounter Care Teams Independent Distributor Relationship Specialty Start Date End Date Mitul Richmodn MD [address] [facility] 110 [place] [address] PCP - ACO Reach 03/13/23 Mitul Richmond MD [address] [facility] 110 [place] [address] PCP - General Internal Medicine 07/07/24 America Mercado PA [address] [facility] 110 [place] [address] Physician Pulmonary Physical Therapist Family Medicine 11/03/23 Venita Rosas, CODY [address] [facility] 230 [place] [address] Registered Nurse Family Medicine 11/12/24 documented as of this encounter
--- OUTSIDE RECORDS SUMMARY | 2025-06-17 12:36 | XMS_ITS | Encounter Summary ---
Author Organization [facility] Address [address] [facility] [place] [address] Care Team Providers Care Internal Medicine Hospitalist Name Role Phone Mitul Richmond MD Unavailable [phone] America Mercado Unavailable [phone] Mitul Richmond MD Primary Care Provider [phone] Venita Rosas RN Unavailable [phone] Encounter Details Date Type Department Care Team (Late Contact Info) Description 05/25/2024 Clinisync Result Encounter [facility] External Department Unsolicited [...] EDT Procedure Visit [facility] 112 [facility] [place] [address] [place] [address] Frandy Avitia, DPJuan M 3006 [facility] 5 [place] [address] 09/06/2025 2:00 PM EST Office Visit [facility] [place] [facility] [address] [facility] 110 [place] [address] America Mercado PA [address] [facility] 110 [place] [address] documented as of this encounter Procedures Procedure Name Priority Date/Time Associated Diagnosis Comments XR ELBOW 3+ VIEWS LEFT 05/25/2024 3:00 PM EDT documented in this encounter Results * XR elbow 3+ views left (05/25/2024 3:00 PM EDT) Anatomical Region Laterality Modality Upper Extremities, Elbow Left Radiogr aphic Imaging 05/25/2024 3:00 PM EDT Narrative 05/25/2024 3:03 [place] [address] XRay Report Signed Patient: DUTCH SANCHEZ Sr. MR#: [id number] : 1955 Acct:[id number] Age/Sex: 68 / M ADM Date: 05/24/24 Loc: EC Attending Dr: Anni Wilson M.D. Ordering Physician: Anni Wilson M.D. Date of Service: 05/24/24 Procedure(s): XR elbow LT min 3V Accession Number(s): [id number] cc: MITUL RICHMOND ; Anni Wilson M.D. The [address] [address] Patient Name: DUTCH SANCHEZ MRN: [id number] date: 1955 Sex: M Assigned Patient Location: Current Patient Location: Accession/Order Number: [id number] Exam Date: 05/24/2024 11:25 Report Date: 05/25/2024 15:00 At the request of: ANNI WILSON Procedure: XR elbow LT min 3V PROCEDURE: XR elbow LT min 3V HISTORY: LEFT ELBOW PAIN COMPARISON: XR elbow left 11/24/2023 FINDINGS: BONES:Prior mechanical fusion of supracondylar fracture of distal left humerus via bilateral plates and screws; no appreciable hardware fracture loosening. Exuberant callus formation along the posterior margin. No appreciable significant degenerative changes of the joint spaces. SOFT TISSUES:Posterior soft tissue swelling. EFFUSION:Suspect small joint effusion. OTHER: Negative. XR/XR elbow LT min 3V IMPRESSION: 1. Stable surgical changes without evidence of hardware failure or change in alignment. 2. No appreciable acute bone abnormality. 3. Suspect small joint effusion and grossly stable posterior soft tissue swelling. Bursitis?. Electronically authenticated by: ANNI MOON Date: 05/25/2024 15:00 Dictated By: Anni Moon M.D. Signed By: 05/25/24 1503 DD/ 1500 TD/TT: Ultrasonic Solderer: Procedure Note Radiology, Radiologist, MD - 05/25/2024 [place] [address] XRay Report Signed Patient: DUTCH SANCHEZ Sr.MR#: [id number] : 1955cct:[id number] Age/Sex: 68 / MADM Date: 05/24/24 Loc: Attending Dr: Anni Wilson M.D. Ordering Physician: Anni Wilson M.D. Date of Service: 05/24/24 Procedure(s): XR elbow LT min 3V Accession Number(s): [id number] cc: MITUL RICHMOND ; Anni Wilson M.D. The [place] [id number] Patient Name: DUTCH SANCHEZ MRN: [id number] date: 1955 Sex: M Assigned Patient Location: Current Patient Location: Accession/Order Number: [id number] Exam Date: 05/24/2024 11:25 Report Date: 05/25/2024 15:00 At the request of: ANNI WILSON Procedure: XR elbow LT min 3V PROCEDURE: XR elbow LT min 3V HISTORY: LEFT ELBOW PAIN COMPARISON: XR elbow left 11/24/2023 FINDINGS: BONES:Prior mechanical fusion of supracondylar fracture of distal lefthumerus via bilateral plates and screws; no appreciable hardware fractureloosening. Exuberant callus formation along the posterior margin. No appreciable significant degenerative changes of the joint spaces. SOFT TISSUES:Posterior soft tissue swelling. EFFUSION:Suspect small joint effusion. OTHER: Negative. XR/XR elbow LT min 3V IMPRESSION: 1. Stable surgical changes without evidence of hardware failure or changein alignment. 2. No appreciable acute bone abnormality. 3. Suspect small joint effusion and grossly stable posterior soft tissue swelling. Bursitis?. Electronically authenticated by: ANNI MOON Date: 05/25/2024 15:00 Dictated By: Anni Moon M.D. Signed By:05/25/24 1503 DD/ 1500 TD/TT: Ultrasonic Solderer: Generic External Data Provider IMG XR PROCEDURES Final Result documented in this encounter Visit Diagnoses Not on filedocumented in this encounter Care Teams Internal Medicine Hospitalist Relationship Specialty Start Date End Date Mitul Richmond MD [address] [facility] 110 [place] [address] PCP - ACO Reach 03/13/23 Mitul Richmond MD [address] [facility] 110 [place] [address] PCP - General Internal Medicine 07/07/24 America Mercado PA [address] [facility] 110 [place] [address] Physician Manufacturing Storeperson Family Medicine 11/03/23 Venita Rosas, CODY [address] [facility] 230 [place] [address] Registered Nurse Family Medicine 11/12/24 documented as of this encounter
--- OUTSIDE RECORDS SUMMARY | 2025-06-17 12:36 | XMS_ITS | Encounter Summary ---
Author Organization [facility] Address [address] [facility] [place] [address] Care Team Providers Care Executive Producer Name Role Phone Mitul Richmond MD Unavailable [phone] America Mercado Unavailable [phone] Mitul Richmond MD Primary Care Provider [phone] Venita Rosas RN Unavailable [phone] Encounter Details Date Type Department Care Team (Late Contact Info) Description 11/05/2024 Abstract [facility] [place] [facility] [address] [place] [address] [place] [address] Mitul Richmond MD [address] [facility] 110 [place], [place] [address] Social History Tobacco Use Types Packs/Day Years [...] CI PODIATRY [address] [place] [address] [place] [address] Frandy Avitia, DPJuan M 3006 [facility] 5 [place], [place] [address] 09/06/2025 2:00 PM EST Office Visit [facility] [place] [address] [facility] 110 [place] [address] America Mercado PA [address] [facility] 110 [place] [address] documented as of this encounter Visit Diagnoses Not on filedocumented in this encounter Care Teams Executive Producer Relationship Specialty Start Date End Date Mitul Richmond MD [address] [facility] 110 [place] [address] PCP - ACO Reach 03/13/23 Mitul Richmond MD [address] [facility] [address] [place] [address] PCP - General Internal Medicine 07/07/24 America Mercado PA [address] [facility] 110 [place] [address] Physician Marker Assembler Family Medicine 11/03/23 Venita Rosas, CODY [address] [facility] [address] [place] [address] Registered Nurse Family Medicine 11/12/24 documented as of this encounter
--- OUTSIDE RECORDS SUMMARY | 2025-06-17 12:36 | XMS_ITS | Encounter Summary ---
Author Organization [facility] Address [address] [facility] [place] [address] Care Team Providers Care Glue Bone Drier Name Role Phone America Mercado Primary Care Provider [phone] Mitul Richmond MD Unavailable [phone] America Mercado Unavailable [phone] Mitul Richmond MD Primary Care Provider [phone] Venita Rosas RN Unavailable [phone] Encounter Details Date Type Department Care Team (Late Contact Info) Description 04/16/2023 Abstract [facility] [place] [facility] [address] [facility] [address] [place] [address] Mitul Richmond MD [address] [facility] 110 [place], [place] [address] Social History Tobacco Use Types Packs/Day Years [...] Upcoming Encounters Date Type Department Care Team ([facility] Contact Info) Description 08/18/2025 11:30 AM EDT Procedure Visit [facility] [address] [facility] [address] [place] [address] Frandy Avitia DPJuan M [address]006 [facility] [address] [place] [address] 09/06/2025 2:00 PM EST Office Visit [facility] [place] [address] [facility] 110 [place] [address] America Mercado PA [address] [facility] [address] [place] [address] documented as of this encounter Visit Diagnoses Not on filedocumented in this encounter Care Teams Glue Bone Drier Relationship Specialty Start Date End Date America Mercado PA [address] [facility] [address] [place] [address] PCP - General Family Medicine 03/10/23 11/02/23 Mitul Richmond MD [address] [facility] [address] [place] [address] PCP - ACO Reach 03/13/23 Mitul Richmond MD [address] [facility] [address] [place] [address] PCP - General Internal Medicine 07/07/24 America Mercado PA [address] [facility] [address] [place] [address] Physician Straightener And Aligner Family Medicine 11/03/23 Venita Rosas, CODY [address] [facility] [address] [place] [address] Registered Nurse Family Medicine 11/12/24 documented as of this encounter
--- OUTSIDE RECORDS SUMMARY | 2025-06-17 12:36 | XMS_ITS | Encounter Summary ---
Author Organization [facility] Address [address] [facility] [place] [address] Care Team Providers Care Lead Nurse Name Role Phone Mitul Richmond MD Unavailable [phone] America Mercado Unavailable [phone] Mitul Richmond MD Primary Care Provider [phone] Venita Rosas RN Unavailable [phone] Encounter Details Date Type Department Care Team (Late Contact Info) Description 04/05/2025 Abstract [facility] [place] [facility] [address] [place] [address] [place] [address] Mitul Richmond MD [address] [facility] 110 [place], [place] [address] Social History Tobacco Use Types Packs/Day Years [...] CI PODIATRY [address] [place] [address] [place] [address] Frandy Avitia, DPJuan M 3006 [facility] 5 [place], [place] [address] 09/06/2025 2:00 PM EST Office Visit [facility] [place] [address] [facility] 110 [place] [address] America Mercado PA [address] [facility] [address] [place] [address] documented as of this encounter Visit Diagnoses Not on filedocumented in this encounter Care Teams Lead Nurse Relationship Specialty Start Date End Date Mitul Richmond MD [address] [facility] [address] [place] [address] PCP - ACO Reach 03/13/23 Mitul Richmond MD [address] [facility] [address] [place] [address] PCP - General Internal Medicine 07/07/24 America Mercado PA [address] [facility] [address] [place] [address] Physician Order Packer Or Packager Family Medicine 11/03/23 Venita Rosas, CODY [address] [facility] [address] [place] [address] Registered Nurse Family Medicine 11/12/24 documented as of this encounter
--- OUTSIDE RECORDS SUMMARY | 2025-06-17 12:36 | XMS_ITS | Encounter Summary ---
Author Organization [facility] Address [address] [facility] [address] Care Team Providers Care Welder Production Line Combination Name Role Phone Mitul Richmond MD Unavailable [phone] America Mercado Unavailable [phone] Mitul Richmond MD Primary Care Provider [phone] Venita Rosas RN Unavailable [phone] Encounter Details Date Type Department Care Team (Late Contact Info) Description 03/29/2025 Abstract [facility] [place] [facility] [address] [place] [address] [place] [address] Mitul Richmond MD [address] [facility] 110 [place], [place] [address] Social History Tobacco Use Types Packs/Day Years [...] CI PODIATRY [address] [place] [address] [place] [address] Frandy Avitia, DPJuan M 3006 [facility] 5 [place], [place] [address] 09/06/2025 2:00 PM EST Office Visit [facility] [place] [address] [facility] [address] [place] [address] America Mercado PA [address] [facility] [address] [place] [address] documented as of this encounter Visit Diagnoses Not on filedocumented in this encounter Care Teams Welder Production Line Combination Relationship Specialty Start Date End Date Mitul Richmond MD [address] [facility] [address] [place] [address] PCP - ACO Reach 03/13/23 Mitul Richmond MD [address] [facility] [address] [place] [address] PCP - General Internal Medicine 07/07/24 America Mercado PA [address] [facility] [address] [place] [address] Physician Luster Applicator Family Medicine 11/03/23 Venita Rosas, CODY [address] [facility] 230 [place] [address] Registered Nurse Family Medicine 11/12/24 documented as of this encounter
--- OUTSIDE RECORDS SUMMARY | 2025-06-17 12:36 | XMS_ITS | Encounter Summary ---
Author Organization [facility] Address [address] [facility] [place] [address] Care Team Providers Care Emr Trainer Name Role Phone Mitul Richmond MD Unavailable [phone] America Mercado Unavailable [phone] Mitul Richmond MD Primary Care Provider [phone] Venita Rosas RN Unavailable [phone] Encounter Details Date Type Department Care Team (Late Contact Info) Description 06/14/2024 Abstract [facility] [place] [facility] [address] [place] [address] [place] [address] Marilee Oconnor MD [address] [place] [place], [place] [address] Social History Tobacco Use Types Packs/Day Years [...] CI PODIATRY [address] [place] [address] [place] [address] Frandy Avitia, DPJuan M [address] [facility] 5 [place], [place] [address] 09/06/2025 2:00 PM EST Office Visit [facility] [place] [address] [facility] 110 [place] [address] America Mercado PA [address] [facility] 110 [place] [address] documented as of this encounter Visit Diagnoses Not on filedocumented in this encounter Care Teams Emr Trainer Relationship Specialty Start Date End Date Mitul Richmond MD [address] [facility] 110 [place] [address] PCP - ACO Reach 03/13/23 Mitul Richmond MD [address] [facility] 110 [place] [address] PCP - General Internal Medicine 07/07/24 America Mercado PA [address] [facility] 110 [place] [address] Physician Change Control Specialist Family Medicine 11/03/23 Venita Rosas, CODY [address] [facility] 230 [place] [address] Registered Nurse Family Medicine 11/12/24 documented as of this encounter
--- OUTSIDE RECORDS SUMMARY | 2025-06-17 12:36 | XMS_ITS | Encounter Summary ---
Author Organization [facility] Address [address] [facility] [place] [address] Care Team Providers Care Load Blocker Name Role Phone America Mercado Primary Care Provider [phone] Mitul Richmond MD Unavailable [phone] America Mercado Unavailable [phone] Mitul Richmond MD Primary Care Provider [phone] Venita Rosas RN Unavailable [phone] Encounter Details Date Type Department Care Team (Late Contact Info) Description 04/08/2023 Abstract [facility] [place] [facility] [address] [facility] 110 [place] [address] America Mercado PA [address] [place] [place] [address] Social History Tobacco Use Types Packs/Day Years [...] Upcoming Encounters Date Type Department Care Team ([facility] Contact Info) Description 08/18/2025 11:30 AM EDT Procedure Visit [facility] [address] [place] [address] [place] [address] Frandy Avitia DPM 3006 [facility] 5 [place] [address] 09/06/2025 2:00 PM EST Office Visit [facility] [place] [address] [facility] [address] [place] [address] America Mercado PA [address] [facility] 110 [place] [address] documented as of this encounter Visit Diagnoses Not on filedocumented in this encounter Care Teams Load Blocker Relationship Specialty Start Date End Date America Mercado, PA [address] [facility] 110 [place] [address] PCP - General Family Medicine 03/10/23 11/02/23 Mitul Richmond MD [address] [facility] 110 [place] [address] PCP - ACO Reach 03/13/23 Mitul Richmond MD [address] [facility] 110 [place] [address] PCP - General Internal Medicine 07/07/24 America Mercado PA [address] [facility] 110 [place] [address] Physician Hoisting Engine Operator Family Medicine 11/03/23 Venita Rosas, CODY [address] [facility] [address] [place] [address] Registered Nurse Family Medicine 11/12/24 documented as of this encounter
--- OUTSIDE RECORDS SUMMARY | 2025-06-17 12:36 | XMS_ITS | Encounter Summary ---
Author Organization [facility] Address [address] [facility] [place] [address] Care Team Providers Care Spiritual Care Coordinator Name Role Phone America Mercado Primary Care Provider [phone] Mitul Richmond MD Unavailable [phone] America Mercado Unavailable [phone] Mitul Richmond MD Primary Care Provider [phone] Venita Rosas RN Unavailable [phone] Encounter Details Date Type Department Care Team (Late Contact Info) Description 05/14/2023 Abstract [facility] [place] [facility] [address] [facility] 110 [place] [address] America Mercado PA [address] [place] [address] [place] [address] Social History Tobacco Use Types Packs/Day Years [...] Upcoming Encounters Date Type Department Care Team ([facility] Contact Info) Description 08/18/2025 11:30 AM EDT Procedure Visit [facility] [address] [place] [address] [place] [phone] Frandy Avitia DPM 3006 [facility] 5 [place] [address] 09/06/2025 2:00 PM EST Office Visit [facility] [place] [address] [facility] 110 [place] [address] America Mercado PA [address] [facility] 110 [place] [address] documented as of this encounter Visit Diagnoses Not on filedocumented in this encounter Care Teams Spiritual Care Coordinator Relationship Specialty Start Date End Date America Mercado, PA [address] [facility] 110 [place] [address] PCP - General Family Medicine 03/10/23 11/02/23 Mitul Richmond MD [address] [facility] 110 [place] [address] PCP - ACO Reach 03/13/23 Mitul Richmond MD [address] [facility] 110 [place] [address] PCP - General Internal Medicine 07/07/24 America Mercado PA [address] [facility] 110 [place] [address] Physician Eyeglass Lens Cutter Family Medicine 11/03/23 Venita Rosas, CODY [address] [facility] [address] [place] [address] Registered Nurse Family Medicine 11/12/24 documented as of this encounter
--- OUTSIDE RECORDS SUMMARY | 2025-06-17 12:36 | XMS_ITS | Encounter Summary ---
Author Organization [facility] Address [address] [facility] [place] [address] Care Team Providers Care Heel Seat Sander Name Role Phone Mitul Richmond MD Unavailable [phone] America Mercado Unavailable [phone] Mitul Richmond MD Primary Care Provider [phone] Venita Rosas RN Unavailable [phone] Encounter Details Date Type Department Care Team (Late Contact Info) Description 12/09/2023 Abstract [facility] [place] [facility] [address] [place] [address] [place] [address] America Mercado PA [address] [place] [address] [place], [place] [id number] Social History Tobacco Use Types Packs/Day Years [...] [address] [place] [address] [place] [address] Frandy Avitia, DPM [facility] [facility] 5 [place], [place] [address] 09/06/2025 2:00 PM EST [facility] [place] [facility] [address] [facility] 110 [place] [address] America Mercado PA [address] [facility] 110 [place] [address] documented as of this encounter Visit Diagnoses Not on filedocumented in this encounter Care Teams Heel Seat Sander Relationship Specialty Start Date End Date Mitul Richmond MD [address] [facility] 110 [place] [address] PCP - ACO Reach 03/13/23 Mitul Richmond MD [address] [facility] 110 [place] [address] PCP - General Internal Medicine 07/07/24 America Mercado PA [address] [facility] 110 [place] [address] Physician Immigration Case Manager Family Medicine 11/03/23 Venita Rosas, CODY [address] [facility] [address] [place] [address] Registered Nurse Family Medicine 11/12/24 documented as of this encounter
--- OUTSIDE RECORDS SUMMARY | 2025-06-17 12:36 | XMS_ITS | Encounter Summary ---
Author Organization [facility] Address [address] [facility] [place] [address] Care Team Providers Care Mental Health Technician Name Role Phone Mitul Richmond MD Unavailable [phone] America Mercado Unavailable [phone] Mitul Richmond MD Primary Care Provider [phone] Venita Rosas RN Unavailable [phone] Encounter Details Date Type Department Care Team (Late Contact Info) Description 05/17/2025 Abstract [facility] [place] [facility] [address] [place] [address] [place] [address] Miutl Richmond MD [address] [facility] 110 [place], [place] [id number] Social History Tobacco Use Types Packs/Day Years [...] CI PODIATRY [address] [place] [address] [place] [address] Frandy Avitia, DPJuan M [address] [facility] 5 [place], [place] [address] 09/06/2025 2:00 PM EST Office Visit [facility] [place] [address] [facility] 110 [place] [address] America Mercado PA [address] [facility] 110 [place] [address] documented as of this encounter Visit Diagnoses Not on filedocumented in this encounter Care Teams Mental Health Technician Relationship Specialty Start Date End Date Mitul Richmond MD [address] [facility] 110 [place] [address] PCP - ACO Reach 03/13/23 Mitul Richmond MD [address] [facility] 110 [place] [address] PCP - General Internal Medicine 07/07/24 America Mercado PA [address] [facility] 110 [place] [address] Physician Claims Auditor Family Medicine 11/03/23 Venita Rosas, CODY [address] [facility] 230 [place] [address] Registered Nurse Family Medicine 11/12/24 documented as of this encounter
--- OUTSIDE RECORDS SUMMARY | 2025-06-17 12:36 | XMS_ITS | Encounter Summary ---
Author Organization [facility] Address [address] [facility] [place] [address] Care Team Providers Care Cotton Tier Name Role Phone America Mercado Primary Care Provider Mitul Richmond MD Unavailable [phone] America Mercado Unavailable [phone] Mitul Richmond MD Primary Care Provider Venita Rosas RN Unavailable [phone] Encounter Details Date Type Department Care Team (Late Contact Info) Description 09/04/2023 Abstract [facility] [place] [facility] [address] [place] [address] [place] [address] America Mercado PA [address] [place] [address] [place] [id number] Social History Tobacco Use Types Packs/Day Years [...] [address] [place] [address] [place] [address] Frandy Avitia, DPJuan M 3006 [facility] 5 [place] [address] 09/06/2025 2:00 PM EST Office Visit [facility] [place] [facility] [address] [facility] 110 [place] [address] America Mercado PA [address] [facility] 110 [place] [address] documented as of this encounter Visit Diagnoses Not on filedocumented in this encounter Care Teams Cotton Tier Relationship Specialty Start Date End Date America Mercado PA [address] [facility] 110 [place] [address] PCP - General Family Medicine 03/10/23 11/02/23 Mitul Richmond MD [address] [facility] 110 [place] [address] PCP - ACO Reach 03/13/23 Mitul Richmond MD [address] [facility] 110 [place] [address] PCP - General Internal Medicine 07/07/24 America Mercado PA [address] [facility] 110 [place] [address] Physician Photography Instructor Family Medicine 11/03/23 Venita Rosas, RN [address] [facility] 230 [place] [address] Registered Nurse Family Medicine 11/12/24 documented as of this encounter
--- OUTSIDE RECORDS SUMMARY | 2025-06-17 12:36 | XMS_ITS | Encounter Summary ---
Author Organization [facility] Address [address] [place] [address] Care Team Providers Care Cryptozoologist Name Role Phone Mitul Richmond MD Unavailable [phone] America Mercado Unavailable [phone] Mitul Richmond MD Primary Care Provider [phone] Venita Rosas RN Unavailable [phone] Reason for Visit * Reason Comments Med Refill Encounter Details Date Type Department Care Team (Late st Contact Info) Description 05/11/2024 Refill [facility] HERMIN[facility] [address] [place] [address] Anneliese Walter NP [address], [address], [place] [address] Degenerative disc disease at L5-S1 level Social History Tobacco Use Types Packs/Day Years [...] encounter Miscellaneous Notes * Telephone Encounter - Anneliese Walter NP - 05/12/2024 10:06 AM EDT This was filled yesterday for a 30 day supply * Telephone Encounter - Raeann Vasquez MA - 05/12/2024 7:32 AM EDT Refill request on lyrica. documented in this encounter Plan of Treatment Upcoming Encounters Date Type Department Care Team (Late st Contact Info) Description 08/18/2025 11:30 AM EDT Procedure Visit [facility] [address] [facility] 120 [place] [address] Frandy Avitia, DPM 3006 [facility] 5 [place] [address] 09/06/2025 2:00 PM EST Office Visit [facility] [place] [facility] [address] [facility] 110 [place] [address] America Mercado PA [address] [facility] 110 [place] [address] documented as of this encounter Visit Diagnoses Diagnosis Degenerative disc disease at L5-S1 level documented in this encounter Care Teams Cryptozoologist Relationship Specialty Start Date End Date Mitul Richmond MD [address] [facility] 110 [place] [address] PCP - ACO Reach 03/13/23 Mitul Richmond MD [address] [facility] 110 [place] [address] PCP - General Internal Medicine 07/07/24 America Mercado PA [address] [facility] 110 [place] [address] Physician Cellars Supervisor Family Medicine 11/03/23 Venita Rosas RN [address] [place] [address] Registered Nurse Family Medicine 11/12/24 documented as of this encounter
--- OUTSIDE RECORDS SUMMARY | 2025-06-17 12:36 | XMS_ITS | Encounter Summary ---
Author Organization [facility] Address [address] [facility] [place] [address] Care Team Providers Care Assurance Engineer Name Role Phone America Mercado Primary Care Provider [phone] Mitul Richmond MD Unavailable [phone] America Mercado Unavailable [phone] Mitul Richmond MD Primary Care Provider [phone] Venita Rosas RN Unavailable [phone] Encounter Details Date Type Department Care Team (Late Contact Info) Description 09/15/2023 Abstract [facility] [place] [facility] [address] [place] [place] [address] America Mercado PA [address] [place] [address] [place] [id number] Social History Tobacco Use Types Packs/Day Years [...] [address] [place] [address] [place] [address] Frandy Avitia, DPJuan M 3006 [facility] 5 [place] [address] 09/06/2025 2:00 PM EST Office Visit [facility] [place] [facility] [address] [facility] 110 [place] [address] America Mercado PA [address] [facility] 110 [place] [address] documented as of this encounter Visit Diagnoses Not on filedocumented in this encounter Care Teams Assurance Engineer Relationship Specialty Start Date End Date America Mercado PA [address] [facility] 110 [place] [address] PCP - General Family Medicine 03/10/23 11/02/23 Mitul Richmond MD [address] [facility] 110 [place] [address] PCP - ACO Reach 03/13/23 Mitul Richmond MD [address] [facility] 110 [place] [address] PCP - General Internal Medicine 07/07/24 America Mercado PA [address] [facility] 110 [place] [address] Physician Certified Phlebotomist Family Medicine 11/03/23 Venita Rosas, RN [address] [facility] 230 [place] [address] Registered Nurse Family Medicine 11/12/24 documented as of this encounter
--- OUTSIDE RECORDS SUMMARY | 2025-06-17 12:37 | XMS_ITS | Encounter Summary ---
Author Organization [facility] Address [address] [facility] [place] [address] Care Team Providers Care Forensic Computer Examiner Name Role Phone Mitul Richmond MD Unavailable [phone] America Mercado Unavailable [phone] Mitul Richmond MD Primary Care Provider [phone] Venita Rosas RN Unavailable [phone] Encounter Details Date Type Department Care Team (Late Contact Info) Description 04/08/2024 Abstract [facility] [place] [facility] [address] [place] [address] [place] [address] Mitul Richmond MD [address] [facility] 110 [place], [place] [address] Social History Tobacco Use Types Packs/Day Years [...] PODIATRY [address] [place] [address] [place] [address] Frandy Avitia, DPM 3006 [facility] 5 [place], [place] [address] 09/06/2025 2:00 PM EST Office [facility] [place] [facility] [address] [facility] 110 [place] [address] America Mercado PA [address] [facility] 110 [place] [address] documented as of this encounter Visit Diagnoses Not on filedocumented in this encounter Care Teams Forensic Computer Examiner Relationship Specialty Start Date End Date Mitul Richmond MD [address] [facility] 110 [place] [address] PCP - ACO Reach 03/13/23 Mitul Richmond MD [address] [facility] 110 [place] [address] PCP - General Internal Medicine 07/07/24 America Mercado PA [address] [facility] 110 [place] [address] Physician Land Lease Information Clerk Family Medicine 11/03/23 Venita Rosas, CODY [address] [facility] 230 [place] [address] Registered Nurse Family Medicine 11/12/24 documented as of this encounter
--- OUTSIDE RECORDS SUMMARY | 2025-06-17 12:37 | XMS_ITS | Encounter Summary ---
Author Organization [facility] Address [address] [facility] [place] [address] Care Team Providers Care Gas Welding Equipment Mechanic Name Role Phone Mitul Richmond MD Unavailable [phone] America Mercado Unavailable [phone] Mitul Richmond MD Primary Care Provider [phone] Venita Rosas RN Unavailable [phone] Encounter Details Date Type Department Care Team (Late Contact Info) Description 12/17/2023 Abstract [facility] [place] [facility] [address] [place] [address] [place] [address] Mitul Richmond MD [address] [facility] 110 [place], [place] [address] Social History Tobacco Use Types Packs/Day Years [...] PODIATRY [address] [place] [address] [place] [address] Frandy Avitia, DPM 3006 [facility] 5 [place], [place] [address] 09/06/2025 2:00 PM EST [facility] [place] [facility] [address] [facility] 110 [place] [address] America Mercado PA [address] [facility] 110 [place] [address] documented as of this encounter Visit Diagnoses Not on filedocumented in this encounter Care Teams Gas Welding Equipment Mechanic Relationship Specialty Start Date End Date Mitul Richmond MD [address] [facility] 110 [place] [address] PCP - ACO Reach 03/13/23 Mitul Richmond MD [address] [facility] 110 [place] [address] PCP - General Internal Medicine 07/07/24 America Mercado PA [address] [facility] 110 [place] [address] Physician Masonry Teacher Family Medicine 11/03/23 Venita Rosas, CODY [address] [facility] 230 [place] [address] Registered Nurse Family Medicine 11/12/24 documented as of this encounter
--- OUTSIDE RECORDS SUMMARY | 2025-06-17 12:37 | XMS_ITS | Encounter Summary ---
Author Organization [facility] Address [address] [place] [address] Care Team Providers Care Sock Lining Examiner Name Role Phone Mitul Richmond MD Unavailable [phone] America Mercado Unavailable [phone] Mitul Richmond MD Primary Care Provider [phone] Venita Rosas RN Unavailable [phone] Encounter Details Date Type Department Care Team (Late Contact Info) Description 03/01/2024 Abstract [facility] [place] [facility] [address] [place] [address] Frandy Avitia DPM [address] [facility] 5 [place] [address] Social History Tobacco Use Types Packs/Day Years [...] Description 08/18/2025 11:30 AM EDT Procedure Visit [facility] 112 [facility] 120 [place] [address] Frandy Avitia, DPJuan M [address] [facility] 5 [place] [address] 09/06/2025 2:00 PM EST Office Visit [facility] [place] [address] [facility] 110 [place] [address] America Mercado PA [address] [facility] 110 [place] [address] documented as of this encounter Visit Diagnoses Not on filedocumented in this encounter Care Teams Sock Lining Examiner Relationship Specialty Start Date End Date Mitul Richmond MD [address] [facility] 110 [place] [address] PCP - ACO Reach 03/13/23 Mitul Richmond MD [address] [facility] 110 [place] [address] PCP - General Internal Medicine 07/07/24 America Mercado PA [address] [facility] 110 [place] [address] Physician Deli Slicer Family Medicine 11/03/23 Venita Rosas, CODY [address] [facility] 230 [place] [address] Registered Nurse Family Medicine 11/12/24 documented as of this encounter
--- OUTSIDE RECORDS SUMMARY | 2025-06-17 12:37 | XMS_ITS | Encounter Summary ---
Author Organization [facility] Address [address] [place] [address] Care Team Providers Care Tnt Line Supervisor Name Role Phone Mitul Richmond MD Unavailable [phone] America Mercado Unavailable [phone] Mitul Richmond MD Primary Care Provider [phone] Venita Rosas RN Unavailable [phone] Encounter Details Date Type Department Care Team (Late Contact Info) Description 12/17/2023 Abstract [facility] [place] [facility] [address] [place] [address] [place] [address] Unallocated, Noms Provider, [address] [place] [address] Social History Tobacco Use Types Packs/Day Years [...] CI PODIATRY [address] [place] 120 [place] [address] Frandy Avitia, DPJuan M 3006 [facility] 5 [place], [place] [address] 09/06/2025 2:00 PM EST Office Visit [facility] [place] [address] [facility] 110 [place] [address] America Mercado PA [address] [facility] 110 [place] [address] documented as of this encounter Visit Diagnoses Not on filedocumented in this encounter Care Teams Tnt Line Supervisor Relationship Specialty Start Date End Date Mitul Richmond MD [address] [facility] 110 [place] [address] PCP - ACO Reach 03/13/23 Mitul Richmond MD [address] [facility] 110 [place] [address] PCP - General Internal Medicine 07/07/24 America Mercado PA [address] [facility] 110 [place] [address] Physician Envelope Machine Adjuster Family Medicine 11/03/23 Venita Rosas, CODY [address] [facility] 230 [place] [address] Registered Nurse Family Medicine 11/12/24 documented as of this encounter
--- OUTSIDE RECORDS SUMMARY | 2025-06-17 12:37 | XMS_ITS | Encounter Summary ---
Author Organization [facility] Address [address] [facility] [place] [address] Care Team Providers Care Casey Saw Operator Name Role Phone Mitul Richmond MD Unavailable [phone] America Mercado Unavailable [phone] Mitul Richmond MD Primary Care Provider [phone] Venita Rosas RN Unavailable [phone] Encounter Details Date Type Department Care Team (Late Contact Info) Description 01/01/2024 Abstract [facility] [place] [facility] [address] [place] [address] [place] [address] Mitul Richmond MD [address] [place] [address] [place], [place] [address] Social History Tobacco Use Types Packs/Day Years [...] PODIATRY [address] [place] [address] Frandy Avitia, DPM 3006 [facility] 5 [place], [place] [address] 09/06/2025 2:00 PM EST Office [facility] [place] [facility] [address] [facility] 110 [place] [address] America Mercado PA [address] [facility] 110 [place] [address] documented as of this encounter Visit Diagnoses Not on filedocumented in this encounter Care Teams Casey Saw Operator Relationship Specialty Start Date End Date Mitul Richmond MD [address] [facility] 110 [place] [address] PCP - ACO Reach 03/13/23 Mitul Richmond MD [address] [facility] 110 [place] [address] PCP - General Internal Medicine 07/07/24 America Mercado PA [address] [facility] 110 [place] [address] Physician Stabilizing Machine Operator Family Medicine 11/03/23 Venita Rosas, CODY [address] [facility] [address] [place] [address] Registered Nurse Family Medicine 11/12/24 documented as of this encounter
--- OUTSIDE RECORDS SUMMARY | 2025-06-17 12:37 | XMS_ITS | Encounter Summary ---
Author Organization [facility] Address [address] [facility] [place] [address] Care Team Providers Care Wireworker Supervisor Name Role Phone Mitul Richmond MD Unavailable [phone] America Mercado Unavailable [phone] Mitul Richmond MD Primary Care Provider [phone] Venita Rosas RN Unavailable [phone] Encounter Details Date Type Department Care Team (Late Contact Info) Description 03/12/2024 Abstract [facility] [place] [facility] [address] [place] [address] [place] [address] Mitul Richmond MD [address] [facility] 110 [place], [place] [address] Social History Tobacco Use Types Packs/Day Years [...] PODIATRY [address] [place] [address] [place] [address] Frandy Avitia, DPM 3006 [facility] 5 [place], [place] [address] 09/06/2025 2:00 PM EST Office [facility] [place] [facility] [address] [facility] 110 [place] [address] America Mercado PA [address] [facility] 110 [place] [address] documented as of this encounter Visit Diagnoses Not on filedocumented in this encounter Care Teams Wireworker Supervisor Relationship Specialty Start Date End Date Mitul Richmond MD [address] [facility] 110 [place] [address] PCP - ACO Reach 03/13/23 Mitul Richmond MD [address] [facility] 110 [place] [address] PCP - General Internal Medicine 07/07/24 America Mercado PA [address] [facility] 110 [place] [address] Physician Cook Pressure Family Medicine 11/03/23 Venita Rosas, CODY [address] [facility] [address] [place] [address] Registered Nurse Family Medicine 11/12/24 documented as of this encounter
--- OUTSIDE RECORDS SUMMARY | 2025-06-17 12:37 | XMS_ITS | Encounter Summary ---
Author Organization [facility] Address [address] [facility] [place] [address] Care Team Providers Care Drivematic Machine Operator Name Role Phone Mitul Richmond MD Unavailable [phone] America Mercado Unavailable [phone] Mitul Richmond MD Primary Care Provider [phone] Venita Rosas RN Unavailable [phone] Encounter Details Date Type Department Care Team (Late Contact Info) Description 01/04/2025 Abstract [facility] [place] [facility] [address] [place] [address] [place] [address] Mitul Richmond MD [address] [place], [place] [id number] Social History Tobacco Use Types Packs/Day Years [...] CI PODIATRY [address] [place] [address] Frandy Avitia, DPJuan M [address] [facility] 5 [place], [place] [id number] 09/06/2025 2:00 PM EST Office Visit [facility] [place] [facility] [address] [facility] 110 [place] [address] America Mercado PA [address] [facility] 110 [place] [address] documented as of this encounter Visit Diagnoses Not on filedocumented in this encounter Care Teams Drivematic Machine Operator Relationship Specialty Start Date End Date Mitul Richmond MD [address] [facility] 110 [place] [address] PCP - ACO Reach 03/13/23 Mitul Richmond MD [address] [facility] [address] [place] [address] PCP - General Internal Medicine 07/07/24 America Mercado PA [address] [facility] 110 [place] [address] Physician Reiki Practitioner Family Medicine 11/03/23 Venita Rosas, CODY [address] [facility] [address] [place] [address] Registered Nurse Family Medicine 11/12/24 documented as of this encounter
--- OUTSIDE RECORDS SUMMARY | 2025-06-17 12:37 | XMS_ITS | Encounter Summary ---
Author Organization [facility] Address [address] [place] [address] Care Team Providers Care Director Of Loss Prevention Name Role Phone Mitul Richmond MD Unavailable [phone] America Mercado Unavailable [phone] Mitul Richmond MD Primary Care Provider [phone] Venita Rosas RN Unavailable [phone] Encounter Details Date Type Department Care Team (Late Contact Info) Description 02/20/2024 Clinisync Result Encounter [facility] External Department Unsolicited [...] EDT Procedure Visit [facility] [address] [facility] [place] [address] [place] [id number] Frandy Avitia, DPM [address] [facility] 5 [place] [address] 09/06/2025 2:00 PM EST Office Visit [facility] [place] [facility] [address] [facility] 110 [place] [id number] America Mercado PA [address] [facility] 110 [place] [address] documented as of this encounter Procedures Procedure Name Priority Date/Time Associated Diagnosis Comments SEGMENTAL BLOOD PRESSURE 02/20/2024 2:06 PM EDT documented in this encounter Results * SEGMENTAL BLOOD PRESSURE (02/20/2024 2:06 PM EDT) Anatomical Region Laterality Modality Radiographic Bernadette ging 02/20/2024 2:06 PM EDT Narrative 02/22/2024 11:[place] [address] Cardiology Report Signed Patient: DUTCH SANCHEZ Sr. MR#: [id number] : 1955 Acct:[id number] Age/Sex: 68 / M ADM Date: 02/20/24 Loc: CARD Attending Dr: FRANDY AVITIA Ordering Physician: FRANDY AVITIA Date of Service: 02/20/24 Procedure(s): CA segmental UE or LE ALESHIA Accession Number(s): [id number] cc: MITUL RICHMOND ; FRANDY AVITIA The [facility] Test Date: 2024-02-20 Pat Name: DUTCH SANCHEZ Department: Room: - Gender: Male Film Inspector: : 1955 Requested By: RFANDY AVITIA Order Number: [id number] Reading MD: EDWARD NARAYAN Interpretive Statements Biphasic doppler waveforms PVR waveforms with normal upstroke, amplitude and dicrotic notch Right: - no significant pressure gradient between cuffs - normal ALEX Left: - no significant pressure gradient between cuffs - normal ALEX Impression: Normal arterial evaluation of the lower extremities without hemodynamic impairmemt of the B/L lower extremities at rest. (right ALEX 1.21, left ALEX 1.20) Electronically Signed On 02-22-2024 11:05:58 EDT by EDWARD NARAYAN Dictated By: Edward Narayan D.O. Signed By: 02/22/24 1106 02/22/24 110 DD/ 140 TD/TT: Delivery Aide: Procedure Note Radiology, Radiologist, - 02/22/[address] [address] Cardiology Report Signed Patient: DUTCH SANCHEZ Sr.MR#: [id number] : 1955cct:[id number] Age/Sex: 68 / MADM Date: 02/20/24 Loc: CARD Attending Dr: FRANDY AVITIA Ordering Physician: FRANDY AVITIA Date of Service: 02/20/24 Procedure(s): CA segmental UE or LE ALESHIA Accession Number(s): [id number] cc: MITUL RICHMOND ; FRANDY AVITIA The [facility] Test Date: 2024-02-20 Pat Name: DUTCH SANCHEZ Department: Room: - Gender: Male Film Inspector: : 1955 Requested By: FRANDY AVITIA Order Number: [id number] Reading MD: EDWARD NARAYAN Interpretive Statements Biphasic doppler waveforms PVR waveforms with normal upstroke, amplitude and dicrotic notch Right: - no significant pressure gradient between cuffs - normal ALEX Left: - no significant pressure gradient between cuffs - normal ALEX Impression: Normal arterial evaluation of the lower extremities without hemodynamic impairmemt of the B/L lower extremities at rest. (right ALEX 1.21, left ALEX 1.20) Electronically Signed On 02-22-2024 11:05:58 EDT by EDWARD NARAYAN Dictated By: Edward Narayan D.O. Signed By:02/22/24 1106 02/22/24 110 DD/ 140 TD/TT: Delivery Aide: us Generic External Data Provider IMG XR PROCEDURES Final Result documented in this encounter Visit Diagnoses Not on filedocumented in this encounter Care Teams Director Of Loss Prevention Relationship Specialty Start Date End Date Mitul Richmond MD [address] [place] [address] PCP - ACO Reach 03/13/23 Mitul Richmond MD [address] [facility] 110 [place] [address] PCP - General Internal Medicine 07/07/24 America Mercado PA [address] [facility] 110 [place] [address] Physician Regenerator Operator Family Medicine 11/03/23 Venita Rosas, RN [address] [facility] [address] [place] [address] Registered Nurse Family Medicine 11/12/24 documented as of this encounter
--- OUTSIDE RECORDS SUMMARY | 2025-06-17 12:37 | XMS_ITS | Encounter Summary ---
Author Organization [facility] Address [address] [facility] [place] [address] Care Team Providers Care Editor Dictionary Name Role Phone Mitul Richmond MD Unavailable [phone] America Mercado Unavailable [phone] Mitul Richmond MD Primary Care Provider [phone] Venita Rosas RN Unavailable [phone] Encounter Details Date Type Department Care Team (Late Contact Info) Description 01/31/2025 Abstract [facility] [place] [facility] [address] [place] [address] [place] [address] Mitul Richmond MD [address] [facility] 110 [place], [place] [address] Social History Tobacco Use Types Packs/Day Years [...] CI PODIATRY [address] [place] [address] [place] [address] Frandy Avitia, DPJuan M [address] [facility] 5 [place], [place] [id number] 09/06/2025 2:00 PM EST Office Visit [facility] [place] [facility] [address] [facility] 110 [place] [address] America Mercado PA [address] [facility] [address] [place] [address] documented as of this encounter Visit Diagnoses Not on filedocumented in this encounter Care Teams Editor Dictionary Relationship Specialty Start Date End Date Mitul Richmond MD [address] [facility] [address] [place] [address] PCP - ACO Reach 03/13/23 Mitul Richmond MD [address] [facility] [address] [place] [address] PCP - General Internal Medicine 07/07/24 America Mercado PA [address] [facility] [address] [place] [address] Physician Drone Pilot Family Medicine 11/03/23 Venita Rosas, CODY [address] [facility] 230 [place] [address] Registered Nurse Family Medicine 11/12/24 documented as of this encounter
--- OUTSIDE RECORDS SUMMARY | 2025-06-17 12:37 | XMS_ITS | Clinical Summary ---
Author Organization [facility] Address [id number] [address] [place] [address] Care Team Providers Care Security Risk Analyst Name Role Phone Mitul Richmond MD Primary Care Provider [phone] Allergies Active Allergy Reactions Criticality Noted Date Comments Bee Pollen Swelling High 03/24/2023 Carbamazepine Other (See Comments) 03/24/2023 Tegretol Cefaclor Hives Medium 03/10/2024 Duloxetine Other (See Comments) High 03/10/2024 Anger, doesn't know where he is Oxcarbazepine Other (See Comments) High 03/10/2024 collapse Bupropion Hcl 03/10/2024 Medications simvastatin (ZOCOR) 40 mg tablet Take 1 tablet (40 mg total) by mouth in the evening. Active pantoprazole (PROTONIX) 40 mg EC tablet Take 1 tablet (40 mg total) by mouth every morning before breakfast. 4 Active venlafaxine XR (EFFEXOR XR) 75 mg 24 hr capsule Take 1 capsule (75 mg total) by mouth in the morning. Active venlafaxine XR (EFFEXOR-XR) 150 mg 24 hr capsule Take 1 capsule (150 mg total) by mouth in the morning. Active phenytoin (DILANTIN) 100 mg ER capsule Take 1 capsule (100 mg total) by mouth 3 (three) times a day. 3 Active primidone (MYSOLINE) 50 mg tablet Take 1 tablet (50 mg total) by mouth. TAKE 2 TABLETS BY MOUTH EVERY MORNING, TAKE 1 TABLET IN THE AFTERNOON, AND TAKE 2 TABLETS AT BEDTIME Active pregabalin (LYRICA) 150 mg capsule Take 1 capsule (150 mg total) by mouth 3 (three) times a day. 4 Active tiZANidine (ZANAFLEX) 4 mg tablet Take 1 tablet (4 mg total) by mouth 3 (three) times a day. 4 Active tamsulosin (FLOMAX) 0.4 mg capsule Take 1 capsule (0.4 mg total) by mouth in the morning. 3 Active HYDROcodone-diane taminophen (NORCO) 10-325 mg per tablet Take 2 tablets by mouth every 6 (six) hours as needed. 4 Active albuterol (PROVENTIL HFA;VENTOLIN HFA) 90 mcg/actuation inhaler Inhale 2 puffs 4 (four) times a day. 4 Active fluticasone propionate (FLONASE) 50 mcg/actuation nasal spray Administer 2 sprays into each nostril in the morning. 3 Active ARIPiprazole (ABILIFY) 2 mg tablet Take 1 tablet (2 mg total) by mouth in the morning. Active EPINEPHrine 0.15 mg/0.15 mL auto-injector Inject 0.15 mg into the appropriate muscle as needed. 3 Active PHENobarbitaL (LUMINAL) 32.4 mg tablet 1 tablet (32.4 mg total) 3 (three) times a day. 4 Active diphenhydrAMINE (BENADRYL) 25 mg capsule Take 1 capsule (25 mg total) by mouth nightly. Active Active Problems No known active problems Family History Medical History Relation Name Comments No Known Problems Father Depression Mother Heart disease Mother Hypertension Mother Relation Name Status Comments Father Mother Alive Social History Tobacco Use Types Packs/Day Years Used Date Smoking Tobacco: Every Day Cigarettes Smokeless Tobacco: Never Tobacco Cessation:Ready to Q uit: Not Asked; Counseling Given: Not Answered Alcohol Use Standard Drinks/Week Comments Not Currently 0 (1 standard drink = 0.6 oz pur e alcohol) Childcare Answer Date Recorded Childcare Unknown 03/31/2019 Employment Answer Date Recorded Employment Unknown 03/31/2019 Hunger Screening Answer Date Recorded Within the past 12 months we worried whether our food would run out before we got money to buy more. Never True 03/10/2024 Food Insecurity - Inability Not on file 02/18 Sex and Gender Information Value Date Recorded Sex Assigned at Not on file Legal Sex Male 11:26 AM EDT Gender Identity Not on file Sexual Orientation Not on file Last Filed Vital Signs Vital Sign Reading Time Taken Comments Blood Pressure 156/72 03/10/2024 1:02 PM EDT Pulse 79 03/10/2024 1:02 PM EDT Temperature - - Respiratory Rate - - Oxygen Saturation - - Inhaled Oxygen Concentration - - Weight 65.8 kg (145 lb) 03/10/2024 1:02 PM EDT Height 175.3 cm (5' 9 ) 03/10/2024 1:02 PM EDT Body Mass Index 21.41 03/10/2024 1:02 PM EDT Plan of Treatment Health Maintenance Due Date Last Done Comments Depression Screening 1968 DTaP,Tdap and Td Vaccines (1 - Tdap) 1975 Abdominal Aortic Aneurysm (A AA) Screen 2021 Fall Risk Screening 2021 Adult BMI Screening 03/10/2025 03/10/2024 Tobacco Screening 03/10/2025 03/10/2024 Influenza Vaccine 06/20/2025 08/08/2023, , 06/27/2021, Additional history exists Zoster (Shingles) Vaccine Completed 2019, 06/14/2020, 03/22/2014 Medical Devices Not on file Insurance MEDICARE MEDICAID [place] Care Teams Security Risk Analyst Relationship Specialty Start Date End Date Mitul Richmond MD [address] [address] PCP - General Internal Medicine 03/02/24
--- OUTSIDE RECORDS SUMMARY | 2025-06-17 12:37 | XMS_ITS | Encounter Summary ---
Author Organization [facility] Address [address] [place] [address] Care Team Providers Care Lean Manufacturing Engineer Name Role Phone Mitul Richmond MD Unavailable [phone] America Mercado Unavailable [phone] Mitul Richmond MD Primary Care Provider [phone] Veniat Rosas RN Unavailable [phone] Encounter Details Date Type Department Care Team (Late Contact Info) Description 12/17/2023 Abstract [facility] [place] [facility] [address] [place] [address] [place] [address] Mitul Richmond MD [address] [facility] 110 [place], [place] [id number] Social History Tobacco Use Types Packs/Day Years [...] PODIATRY [address] [place] [address] [place] [address] Frandy Avitia, DPM [address] [facility] 5 [place], [place] [id number] 09/06/2025 2:00 PM EST [facility] [place] [facility] [address] [facility] [address] [place] [address] America Mercado PA [address] [facility] [address] [place] [address] documented as of this encounter Visit Diagnoses Not on filedocumented in this encounter Care Teams Lean Manufacturing Engineer Relationship Specialty Start Date End Date Mitul Richmond MD [address] [facility] [address] [place] [address] PCP - ACO Reach 03/13/23 Mitul Richmond MD [address] [facility] [address] [place] [address] PCP - General Internal Medicine 07/07/24 America Mercado PA [address] [facility] [address] [place] [address] Physician Fast Food Attendant Family Medicine 11/03/23 Venita Rosas, CODY [address] [facility] [address] [place] [address] Registered Nurse Family Medicine 11/12/24 documented as of this encounter
--- OUTSIDE RECORDS SUMMARY | 2025-06-17 12:43 | XMS_ITS | CCD ---
Author Organization [facility] Team Providers Care Wildlife Rehabilitator Name Role Phone FOREIGNJERMAIN ELLEN Burleson Unavailable Unavailable SHARON EPSTEIN Unavailable Unavailable ELIOT VAZQUEZ Unavailable MITUL Conti Unavailable Unavailable [place] Unavailable Unavailable DUTCH DE SOUZA Unavailable Unavailable HEYID BULLOCK Unavailable Unavailable VICKY, DR SALEEM Primary Care Unavailable VICKY, DR SALEEM Admitting Unavailable DR MITUL RICHMOND Attending Unavailable VICKY, DR SALEEM Consulting Unavailable ALEXX MARIE Consulting Unavailable VICKY, DR SALEEM Primary Care Unavailable VICKY, DR SALEEM Admitting Unavailable DR MITUL RICHMOND Attending Unavailable Mitul Richmond MD Unavailable America Velasquez Unavailable [phone] MARIZOL HIGHTOWER Attending Unavailable MITUL RICHMOND Primary Care Unavailable Mitul Richmond MD Primary Care Provider Venita Rosas RN Unavailable Mitul Richmond MD Primary Care Provider Venita Rosas RN Unavailable AMERICA CHRISTIANSON Attending Unavailable AMERICA CHRISTIANSON Attending Unavailable MELISSA GOLDBERG Attending Unavailable ALVINO TORRES Attending Unavailable MELISSA GOLDBERG Referring Unavailable AMERICA CHRISTIANSON Attending Unavailable FRANDY AVITIA Attending Unavailable FRANDY AVITIA Attending Unavailable MAXIMO NGUYEN Attending Unavailable MITUL RICHMOND Referring Unavailable FRANDY AVITIA Attending Unavailable ALVINO TORRES Attending Unavailable ALVINO TORRES Referring Unavailable AMERICA CHRISTIANSON Attending Unavailable MAXIMO NGUYEN Attending Unavailable ALVINO TORRES Attending Unavailable MAXIMO NGUYEN Referring Unavailable Mitul Richmond II Primary Care Provider Serenity Costa Attending Provider Unavailable Chirag DELATORRE-MATERIALS MANAGER-Gloria Marc Attending Provider Allergies Allergy Classification Reported Allergen(s) Allergy Type Date of Onset Reaction(s) Facility (2 sources) Bee/Wasp/Ant venom; Translations: [BEE STINGS] Propensity to adverse reactions (disorder) 7 Anaphylaxis [facility] Repository (2 sources) carBAMazepine Drug Allergy 7 [facility] Repository (2 sources) cefaclor Drug Allergy 7 [facility] Repository (2 sources) DULoxetine Drug Allergy 7 [facility] Repository (1 source) OXcarbazepine Drug Allergy 7 [facility] Repository (1 source) bee venom Drug allergy (disorder) 7 [facility] Repository (20 sources) Bee pollen; Translations: [BEE POLLEN] Allergy to substance 3 Unknown [facility] Work Phone: (20 sources) Carbamazepine; Translations: [CARBAMAZEPINE] Allergy to substance 3 Unknown [facility] (2 sources) buPROPion; Translations: [BUPROPION HCL] Drug Allergy 4 [facility] Repository (20 sources) Cefaclor; Translations: [CEFACLOR] Drug Allergy 4 Hives [facility] (20 sources) DULoxetine; Translations: [DULOXETINE] Drug Allergy 4 Unknown, Other (See Comments) [facility] Repository (20 sources) OXcarbazepine; Translations: [OXCARBAZEPINE] Drug Allergy 4 Other (See Comments) [facility] (20 sources) buPROPion Drug Allergy 4 [facility] (20 sources) DULoxetine Drug Allergy 4 [facility] (1 source) Bee pollen Drug Allergy 3 Swelling [facility] (1 source) carBAMazepine Drug Allergy 3 Other (See Comments) [facility] (2 sources) varenicline Drug Allergy 5 [facility] Medications Current Medications Medication Drug Class(es) Dates Sig (Normalized) Sig (Original) acetaminophen 500 mg oral tablet (20 sources) take 1 tablet by mouth every six hours as needed for pain acetaminophen (Tylenol Extra Strength) 500 MG tablet Take 500 mg by mouth every 6 (six) hours if needed for mild pain Active acetaminophen 250 mg / aspirin 250 mg / caffeine 65 mg oral tablet (1 source) Platelet Aggregation Inhibitor, Nonsteroidal Anti-inflammatory Drug, Central Nervous System Stimulant, Methylxanthine Start: 07-01-2018 take 2 tablets by mouth once daily as needed for headache Aspirin-Acetaminop hen-Caffeine (Excedrin Migraine) 250-250-65 mg Tablet Active 2 TAB PO Daily as needed for Migraine Headache July 01, 2018 12:00am Complies with drug therapy acetaminophen 325 mg / HYDROcodone bitartrate 10 mg oral tablet (20 sources) Opioid Agonist Start: 06-15-2025 End: 06-30-2025 take 2 tablets by mouth every six hours for pain HYDROcodone-acetam inophen (Felch) 10-325 MG tablet Indications: Degenerative disc disease at L5-S1 level Take 2 tablets by mouth every 6 (six) hours if needed for severe pain for up to 15 days 120 tablet 06/15/2025 06/30/2025 Active Start: 05-12-2025 End: 05-27-2025 take 2 tablets by mouth every six hours for pain HYDROcodone-acetaminophen (Felch) 10-325 MG tablet Indications: Degenerative disc disease at L5-S1 level Take 2 tablets by mouth every 6 (six) hours if needed for severe pain for up to 15 days 120 tablet 05/12/2025 05/27/2025 Active Start: 02-23-2025 End: 03-17-2025 take 2 tablets by mouth every six hours for pain HYDROcodone-acetaminophen (Felch) 10-325 MG tablet Indications: Degenerative disc disease at L5-S1 level Take 2 tablets by mouth every 6 (six) hours if needed for severe pain for up to 15 days 120 tablet 03/02/2025 03/17/2025 Active Start: 01-26-2025 End: 02-11-2025 take 2 tablets by mouth every six hours for pain HYDROcodone-acetaminophen (Felch) 10-325 MG tablet Indications: Degenerative disc disease at L5-S1 level Take 2 tablets by mouth every 6 (six) hours if needed for severe pain for up to 15 days 120 tablet 01/27/2025 02/11/2025 Active Start: 11-25-2024 End: 01-06-2025 take 2 tablets by mouth every six hours for pain HYDROcodone-acetaminophen (Felch) 10-325 MG tablet Indications: Degenerative disc disease at L5-S1 level Take 2 tablets by mouth every 6 (six) hours if needed for severe pain for up to 15 days 120 tablet 12/22/2024 01/06/2025 Active Start: 10-26-2024 End: 11-10-2024 take 2 tablets by mouth every six hours for pain HYDROcodone-acetaminophen (Felch) 10-325 MG tablet Indications: Degenerative disc disease at L5-S1 level Take 2 tablets by mouth every 6 (six) hours if needed for severe pain for up to 15 days 120 tablet 10/26/2024 11/10/2024 Active Start: 05-25-2024 End: 10-07-2024 take 2 tablets by mouth every six hours for pain HYDROcodone-acetaminophen (Felch) 10-325 MG tablet Indications: Degenerative disc disease [...] uth every six hours for pain HYDROcodone-acetaminophen (Felch) 10-325 MG tablet Indications: Degenerative disc disease at L5-S1 level Take 2 tablets by mouth every 6 (six) hours if needed for severe pain. 120 tablet 0 08/08/2023 Active Start: 07-01-2018 take 1 tablet by natalie th four times daily as needed for pain Hydrocodone-Acetaminophen 10-325 mg tabl et Active 10 - 325 TAB PO Four times daily as needed for Pain July 01, 2018 12:00am Complies with drug therapy [id number] actuat albuterol 0.09 mg/actuat metered dose inhaler (20 sources) beta2-Adrenergic Agonist Start: 07-28-2024 take 2 puff(s) by inhalation every four hours for wheezing albuterol HFA 90 mcg/act inhaler Indications: Chronic obstructive pulmonary disease, unspecified COPD type (HCC) Inhale 2 puffs every 4 (four) hours if needed for wheezing 18 g 11 12/21/2024 Active Start: 03-30-2024 take 2 puff(s) by [...] of breath. 54 g 3 08/07/2023 Active Start: 07-01-2018 take 1 puff(s) by in halation twice daily Albuterol Sulfate (Ventolin Hfa) 90 mcg/actuation HFA aerosol inhaler Active 2 PUFF INHALATION Twice daily July 01, 2018 12:00am Complies with drug therapy ARIPiprazole 2 mg oral tablet (20 sources) Atypical Antipsychotic Start: 07-24-2023 take 1 tablet by mouth once daily ARIPiprazole (Abilify) 2 MG tablet Indications: Major depressive disorder with single episode, remission status unspecified TAKE 1 TABLET BY MOUTH DAILY 90 tablet 11 01/28/2025 Active baclofen 10 mg oral tablet (1 source) gamma-Aminobutyric Acid-ergic Agonist Start: 07-01-2018 take 1 tablet by mouth once daily at bedtime Baclofen 10 mg tablet Active 10 MG PO Daily at bedtime July 01, 2018 12:00am Complies with drug therapy Blood Glucose Monitoring Suppl (FreeStyle Lite) w/Device [...] / glycopyrrolate 0.009 mg/actuat metered dose inhaler (20 sources) Corticosteroid, beta2-Adrenergic Agonist Start: 05-27-2025 take 2 puff(s) by inhalation in the morning Breztri Aerosphere 160-9-4.8 MCG/ACT aerosol Indications: Panlobular emphysema (HCC) , Simple chronic bronchitis (HCC) INHALE TWO (2) PUFFS IN THE MORNING AND INHALE TWO (2) PUFFS BEFORE BEDTIME 10.7 g 11 05/27/2025 Active Start: 12-14-2024 take 2 puff(s) by inhalation in the morning Seqyupy-Lklurvnjsnx-Wyiwcplzgr (Breztri Aerosphere) 160-9-4.8 MCG/ACT aerosol Indications: Panlobular emphysema (HCC) , Simple chronic bronchitis (HCC) Inhale 2 puffs in the morning and 2 puffs before bedtime. 10.7 g 5 12/14/2024 Active diphenhydrAMINE hydrochloride 25 mg oral capsule (20 sources) Histamine-1 Receptor Antagonist take 1 capsule by mouth at bedtime diphenhydrAMINE (BENADryl) 25 MG capsule Take 25 mg by mouth at bedtime Active [id number] 0.15 ml EPINEPHrine 1 mg/ml auto-injector (20 sources) alpha-Adrenergic Agonist, beta-Adrenergic Agonist, Catecholamine Start: 025 EPINEPHrine (AUVI-Q) 0.15 mg/0.15 mL IJ solution [...] dose nasal spray (20 sources) Corticosteroid Start: 01-17-2025 take 2 spray(s) nasal route once daily fluticasone (Flonase) 50 MCG/ACT nasal spray Indications: Allergic rhinitis, unspecified seasonality, unspecified trigger INSTILL TWO (2) SPRAYS IN EACH NOSTRIL DAILY 16 g 10 01/17/2025 Active Start: 01-11-2025 take 2 spray(s) nasa l route once daily fluticasone (Flonase) 50 MCG/ACT nasal spray Indications: Allergic rhinitis, unspecified seasonality, unspecified trigger INSTILL TWO (2) SPRAYS IN EACH NOSTRIL DAILY 16 g 10 01/11/2025 Active Start: 07-26-2024 take 2 spray(s) nasa l route once daily fluticasone (Flonase) 50 MCG/ACT [...] each nostril in the morning. 07/24/2023 Active Start: 07-01-2018 Fluticasone Pr opionate 50 mcg/actuation spray,suspension Active 2 SPRAY INTRANASAL Daily at bedtime as needed for Allergy Symptoms July 01, 2018 12:00am Complies with drug therapy furosemide 20 mg oral tablet (20 sources) Loop Diuretic Start: 10-30-2023 take 1 tablet by mouth once daily furosemide (Lasix) 20 MG tablet Take 20 mg by mouth Daily 10/30/2023 Active isopropyl alcohol 0.7 ml/ml medicated pad (20 sources) Alcohol Swabs (Alcohol Prep) pads Apply 1 Pad topically every 12 (twelve) hours. Active lamoTRIgine 25 mg oral tablet (1 source) Mood Stabilizer, Anti-epileptic Agent Start: 07-01-2018 take 1 tablet by mouth once daily at bedtime Lamotrigine 25 mg tablet Active 25 MG PO Daily at bedtime July 01, 2018 12:00am Complies with drug therapy lisinopril 20 mg oral tablet (20 sources) Angiotensin Converting Enzyme Inhibitor Start: 11-12-2024 take 1 tablet by mouth before mealtime lisinopril 20 MG tablet Indications: Primary hypertension TAKE 1 TABLET (20MG) BY MOUTH AT NOON BEFORE A MEAL 30 tablet 10 11/12/2024 Active Start: 11-11-2023 take 1 tablet by natalie th before mealtime lisinopril 20 MG tablet Indications: Primary hypertension (CMS/HCC) Take 1 tablet (20 mg) by mouth at noon. Take before meals 100 tablet 3 11/11/2023 Active meloxicam 7.5 mg oral tablet (20 sources) Nonsteroidal Anti-inflammatory Drug Start: 01-06-2025 take 1 tablet by mouth every twenty-four hours as needed for pain and pain meloxicam (Mobic) 7.5 MG tablet Take 7.5 mg by mouth Daily as needed for mild pain or moderate pain QTY 14 tabs 01/06/2025 Active naloxone hydrochloride 40 mg/ml nasal spray [...] (20 sources) Cholinergic Nicotinic Agonist Start: 03-25-2023 End: 03-15-2025 nicotine polacrilex (Nicorette) 4 MG gum Indications: Smoking addiction Chew 1 each (4 mg) every 8 (eight) hours if needed for smoking cessation. 90 each 3 03/25/2023 03/15/2025 Discontinued (Other) Start: 03-25-2023 End: 03-15-2025 nicotine polacrilex (Commit) 4 MG lozenge Indications: Smoking addiction Dissolve 1 lozenge (4 mg) in the mouth every 8 (eight) hours if needed for smoking cessation. 90 lozenge 2 03/25/2023 03/15/2025 Discontinued (Other) pantoprazole 40 mg delayed release oral tablet (20 sources) Proton Pump Inhibitor Start: 07-01-2018 take 1 tablet by mouth once daily in the morning pantoprazole (ProtoNix) 40 MG EC tablet Indications: Gastro-esophageal reflux disease without esophagitis TAKE 1 TABLET BY MOUTH EVERY MORNING 30 tablet 11 01/28/2025 Active phenytoin sodium 100 mg extended release oral capsule (20 sources) Anti-epileptic Agent Start: 12-29-2024 take 1 capsule by mouth at bedtime phenytoin ER (Dilantin) 100 MG capsule Indications: Localization-related epilepsy (HCC) TAKE ONE (1) CAPSULE BY MOUTH IN THE MORNING, IN THE EVENING, AT BEDTIME 90 capsule 10 12/29/2024 Active Start: 07-01-2018 End: 07-26-2024 take 1 capsule by mouth [...] 150 mg oral capsule (20 sources) Start: 07-01-2018 End: 03-28-2025 take 1 capsule by mouth in the morning, then take 1 capsule by mouth in the evening, then take 1 capsule by mouth at bedtime pregabalin (Lyrica) 150 MG capsule Indications: Lumbar radiculopathy , Degenerative disc disease at L5-S1 level Take 1 capsule (150 mg) by mouth in the morning and 1 capsule (150 mg) in the evening and 1 capsule (150 mg) before bedtime. 90 capsule 1 02/23/2025 Active primidone 50 mg oral tablet (20 sources) Anti-epilepti c Agent Start: 12-29-2024 primidone (Mysoline) 50 MG tablet Indications: Essential tremor TAKE 2 TABLETS BY MOUTH IN THE MORNING, TAKE 1 TABLET IN THE AFTERNOON, AND TAKE 2 TABLETS AT BEDTIME 150 tablet 1 12/29/2024 Active Start: 07-07-2024 primidone (Mys oline) 50 MG tablet Indications: Essential tremor Take [...] tablet by natalie th in the morning primidone (Mysoline) 50 MG tablet Indications: Essential tremor Take 1 tablet (50 mg) by mouth in the morning and 1 tablet (50 mg) before bedtime. 400 tablet 3 07/24/2023 Active Start: 07-01-2018 End: 03-28-2025 take 1 tablet by mouth twice daily Primidone 50 mg tablet Discontinued 50 MG PO Twice daily July 01, 2018 12:00am March 28, 2025 1:41pm sildenafil 50 mg oral tablet (20 sources) [...] tablet (20 sources) HMG-CoA Reductase Inhibitor Start: 07-01-2018 take 1 tablet by mouth in the morning simvastatin (Zocor) 40 MG tablet Indications: Mixed hyperlipidemia , Hypertension, unspecified type TAKE 1 TABLET BY MOUTH IN THE MORNING 30 tablet 10 11/12/2024 Active tamsulosin hydrochloride 0.4 mg oral capsule (20 sources) alpha-Adrenergic Jeanine Start: 04-28-2025 take 1 capsule by mouth once daily in the morning tamsulosin (Flomax) 0.4 MG 24 hr capsule Indications: Benign localized prostatic hyperplasia with lower urinary tract symptoms (LUTS) TAKE 1 CAPSULE BY MOUTH EVERY MORNING 100 capsule 3 04/28/2025 Active Start: 06-01-2024 take 1 capsule by mo uth once daily in the morning tamsulosin (Flomax) [...] by mouth in the morning. 08/28/2023 Active tiZANidine 4 mg oral tablet [...] Start: 10-01-2024 take 2 tablets by mo uth every eight hours as needed for muscle [...] Active Start: 02-29-2024 take 1 tablet by natalie three times daily tiZANidine (ZANAFLEX) 4 mg tablet Take 1 tablet (4 mg total) by mouth 3 (three) times a day. 02/29/2024 Active Start: 11-17-2023 take 2 tablets by mo [facility] every eight hours for muscle spasms tiZANidine (Zanaflex) 4 MG tablet Indications: Right lumbar radiculopathy take 2 tablets by mouth every 8 hours if needed for muscle spasm 60 tablet 0 11/17/2023 Active Start: 07-01-2018 take 1 tablet by natalie twice daily Tizanidine 4 mg tablet Active 4 MG PO Twice daily July 01, 2018 12:00am Complies with drug therapy 24 hr venlafaxine 150 mg extended release oral capsule (20 sources) Serotonin and Norepinephrine Reuptake Inhibitor Start: 07-24-2023 take 1 capsule by mouth every twenty-four hours in the morning venlafaxine XR (Effexor XR) 150 MG 24 hr capsule Indications: Depressive disorder (CMS/HCC) Take 1 capsule (150 mg) by mouth in the morning. 100 capsule 3 07/24/2023 Active Start: 07-01-2018 take 1 capsule by mo [facility] once daily venlafaxine XR (Effexor XR) 150 MG 24 hr capsule Indications: Depressive disorder TAKE 1 CAPSULE BY MOUTH ONCE DAILY 90 capsule 11 01/28/2025 Active Start: 07-01-2018 End: 07-26-2024 take 1 capsule by mouth once daily venlafaxine XR (Effexor XR) 75 MG 24 hr capsule Indications: Depressive disorder Take 1 capsule (75 mg) by mouth Daily 100 capsule 3 07/26/2024 Active take 1 capsule by mo [facility] every twenty-four hours in the morning venlafaxine XR (EFFEXOR XR) 75 mg 24 hr capsule Take 1 capsule (75 mg total) by mouth in the morning. Active Completed/Discontinued Medications Medication Drug Class(es) Dates Sig (Normalized) Sig (Original) bupivacaine hydrochloride 2.5 mg/ml injectable solution (12 sources) Amide Local Anesthetic Start: 02-16-2025 End: 02-16-2025 bupivacaine (Marcaine) 0.25 % injection 2.5 mg Start: 02-16-2025 End: 02-16-2025 2.5 mg (1 mL), Injection, On ce, On Fri02/16/25 at 1215, For 1 dose Start: 10-26-2024 End: 10-26-2024 [...] dose dexamethasone phosphate 10 mg/ml injectable solution (12 sources) Corticosteroid Start: 02-16-2025 End: 02-16-2025 dexAMETHasone sod phos (Decadron) injection 10 mg Start: 02-16-2025 End: 02-16-2025 10 mg (1 mL), Injection, Onc e, On Fri02/16/25 at 1215, For 1 dose Start: 10-26-2024 End: 10-26-2024 [...] (OMNIPaque) 300 MG/M L injection 2 mL (12 sources) Start: 02-16-2025 End: 02-16-2025 iohexol (OMNIPaque) 300 MG/M L injection 2 mL Start: 02-16-2025 End: 02-16-2025 2 mL, Injection, Once in elijah ging, Starting on Fri02/16/25 at 1214, For 1 dose Start: 10-26-2024 End: 10-26-2024 iohexol (OMNIPaque) 300 [...] at 1354, For 1 dose peg 3350-sod sulf,hcuv-giq-ldo 178.7-7.3-0.5 gram recon soln (1 source) Start: 03-10-2024 End: 03-11-2024 peg 3350-sod sulf,dilr-qej-tyr 178.7-7.3-0.5 gram recon soln Indications: Rectal bleeding Take 1 kit by mouth in the morning for 1 dose. Please see instructional sheet given by Physicians office. 1 each 03/10/2024 03/11/2024 PHENobarbital 32 mg oral tablet (20 sources) Start: 05-25-2024 End: 06-15-2025 take 1 tablet by mouth in the morning, then take 1 tablet by mouth in the evening, then take 1 tablet by mouth at bedtime PHENobarbital (Luminal) 32.4 MG tablet Indications: Localization-related epilepsy (HCC) Take 1 tablet (32.4 mg) by mouth in the morning and 1 tablet (32.4 mg) in the evening and 1 tablet (32.4 mg) before bedtime. 90 tablet 2 06/14/2025 06/15/2025 Discontinued (Reorder) Start: 10-28-2023 take 1 tablet by natalie [...] before bedtime. 90 tablet 0 10/28/2023 Active Start: 07-01-2018 PHENobarbitaL (LUMINAL) 32.4 mg tablet 1 tablet (32.4 mg total) 3 (three) times a day. 02/06/2024 Active SUMAtriptan 100 mg oral tablet (1 source) Serotonin-1b and Serotonin-1d Receptor Agonist Start: 07-01-2018 End: 06-01-2025 Sumatriptan Succinate 100 mg tablet Discontinued 100 MG PO As Directed as needed for Migraine Headache July 01, 2018 12:00am June 01, 2025 1:49pm Problems Active Problems Problem Classification Problem Date [...] [TYPE 2 DIABETES MELLITUS WITHOUT COMPLICATIONS] Onset: 7 Chronic Disorders of lipid metabolism (20 sources) [...] Translations: [Depressive disorder] Onset: 3 03-24-2023 Chronic Mycoses (3 sources) Onychomycosis; Translations: [Tinea unguium] 07-01-2024 Episodic Osteoarthritis (20 sources) Degenerative joint disease involving multiple joints; Translations: [Polyosteoarthritis, unspecified] Onset: 3 03-24-2023 Chronic Other aftercare (8 sources) Polypharmacy ; Translations: [Other fci (current) drug therapy] 07-07-2024 Episodic Other connective tissue disease (20 sources) Recurrent falls ; Translations: [Repeated falls] Onset: 3 03-24-2023 Episodic Other ear and sense organ [...] [Polyneuropathy, unspecified] Onset: 3 03-24-2023 Chronic Other nervous system disorders (15 sources) Chronic pain; Translations: [Other chronic pain] Onset: 5 01-13-2025 Chronic Other nervous system disorders (20 sources) Abnormal gait; Translations: [Unspecified abnormalities of gait and mobility] Onset: 3 03-24-2023 Episodic Other non-traumatic joint disorders (4 sources) Pain in right ankle and joints of right foot; Translations: [PAIN IN RIGHT ANKLE] Onset: 3 Episodic Other upper respiratory disease (1 source) Allergic rhinitis; Translations: [Allergic rhinitis, unspecified] 07-26-2024 Chronic Peripheral and visceral atherosclerosis (1 source) Peripheral vascular disease; Translations: [Peripheral vascular disease, unspecified] 03-09-2025 Chronic Residual codes; unclassified (1 source) Tobacco use; Translations: [Tobacco use] Onset: 4 Episodic Spondylosis; intervertebral disc disorders; other back problems (20 sources) Other spondylosis, cervical region; Translations: [Degeneration of lumbosacral intervertebral disc] Onset: 7 03-24-2023 Chronic Substance-related disorders (20 sources) Nicotine dependence, cigarettes, uncomplicated; Translations: [Tobacco dependence caused by cigarettes] Onset: 7 03-24-2023 Chronic Superficial injury; contusion (2 sources) Contusion of left knee; Translations: [Contusion of left knee, subsequent encounter] 01-13-2025 Episodic Unclassified (2 sources) Unknown / UNK(Unknown) Onset: [...] 03-24-2023 Episodic Other and unspecified benign neoplasm (20 [...] Test Name Value Interpretation Reference Range Facility No Panel Informationon 02-16 Alvino Torres DO 02/16/2025 2:57 PM Nerve Block Date/Time: 02/16/2025 12:16 PM Performed by: Alvino Torres DO Authorized by: FRANCO Foy Consent: Consent obtained: Written Consent given by: Patient [place] protocol: Procedure explained and questions answered to patient or proxy's satisfaction: yes Patient identity confirmed: Verbally with patient Location: Body area: Trunk Trunk nerve: Lumbar Procedure details: Guidance: fluoroscopy Steroid injected: Dexamethasone Post-procedure details: Procedure completion: [facility] XR ANKLE RT MIN 3 VIEWSon XR [...] by: ALEXX MARIE Date: 2023-02-06 13:52 Normal [facility] Discharge Summaryon 06-10-20 17 Discharge Summary MR[id number] [facility] Dutch Monique Admitted: 06/08/2017 Discharged: 06/09/2017 Date of : 1955 Physician: Heydi Bullock M.D. DISCHARGE SUMMARYDISCHARGE ATTENDING: Dr. Bullock.PRINCIPAL DIAGNOSIS: Neck injury following a fall on railing.SECONDARY DIAGNOSES: Chronic obstructive pulmonary disease, epilepsy, andtype 2 diabetes.PROCEDURES PERFORMED AND TREATMENT RENDERED: CTC, CT neck, x-ray ofabdomen and pelvis were performed in the emergency department at [facility]. CTC revealed cervical spondylosis with multi-facet DJD,otherwise no acute injuries. CT neck shows some right subcu emphysema inthe prevertebral tissue from the skull base to the superior mediastinum.X-ray of the pelvis and hip were negative. Esophagram was [facility] at [facility] torule out esophageal rupture. Esophagram came back negative. The patientwas started on normal diet and home medications were resumed. Thepatient's condition at discharge was stable. The patient was seen by PTand OT, which recommended home PT, otherwise [facility]. The patient was discharged home with a prescriptionfor Percocet and for Colace. [facility].Electronically Signed by:Heydi Bullock M.D. 06/10/2017 12:39 P Heydi Bullock M.D. I personally saw this patient on the day of the encounter, performed thekey portion(s) of the service and participated in the management andconfirm the resident's documentation. Please note there may be anadditional personal documentation from me. Date Dict: 06/09/2017/04:39 P/Master Cook WYATTate Trans: 06/10/2017 02:22 [id number] cc: Mitul Richmond M.D. [address] [place] [id number] Normal [facility] CBC W/DIFFon 06-09-2017 Basophils Auto #/vol (Bld) 1.0 % Normal 0.0-2.0 [facility] Comment on above: Order Comment: No: D o not add to previous draw Performed By: #### 5 0103 ####[facility]3000 [facility].[address] Eosinophils/100 leukocytes 3.7 % Normal 0.0-5.0 [facility] Comment on above: Order Comment: No: D o not add to previous draw Performed By: #### 5 0103 ####[facility] [facility] Erythrocyte distribution width Auto Ratio (RBC) 16.0 % Normal 11.5-16.9 [facility] Comment on above: Order Comment: No: D o not add to previous draw Performed By: #### 5 0103 ####[facility]3000 [facility] [place] [address], [facility] Erythrocytes (RBC) 4.80 mill/mm3 Normal 4.30-5.90 [facility] Comment on above: Order Comment: No: D o not add to previous draw Performed By: #### 5 0103 ####[facility] Hematocrit (HCT) 45.6 % Normal 39.0-55.0 [facility] Comment on above: Order Comment: No: D o not add to previous draw Performed By: #### 5 0103 ####[facility] Hemoglobin mass conc (Bld) 15.3 g/dL Normal 13.9-16.3 [facility] Comment on above: Order Comment: No: D o not add to previous draw Performed By: #### 5 0103 ####[facility] Lymphocytes/100 leukocytes 28.3 % Normal 20.0-40.0 [facility] Comment on above: Order Comment: No: D o not add to previous draw Performed By: #### 5 0103 ####[facility] MCH 31.9 pg Normal 24.0-32.0 [facility] Comment on above: Order Comment: No: D o not add to previous draw Performed By: #### 5 0103 ####[facility] MCHC mass conc (RBC) 33.6 g/dL Normal 32.0-36.0 [facility] Comment on above: Order Comment: No: D o not add to previous draw Performed By: #### 5 0103 ####[facility] MCV 95.1 fL Normal 80.0-100.0 [facility] Comment on above: Order Comment: No: D o not add to previous draw Performed By: #### 5 0103 ####[facility] [place] [address], [facility] METHOD Normal [facility] Comment on above: Order Comment: No: D o not add to previous draw Result Comment: Auto mated differential performedNormal RBC Morphology Performed By: #### 5 0103 ####[facility] [place] [address], [facility] MONOS 8.4 % High 2-8 [facility] Comment on above: Order Comment: No: D o not add to previous draw Performed By: #### 5 0103 ####[facility] [id number], [facility] Neutrophils/100 leukocytes 58.6 % Normal 50-70 [facility] Comment on above: Order Comment: No: D o not add to previous draw Performed By: #### 5 0103 ####[facility] [place] [address], [facility] PLAT CNT 144 Thou/mm3 Normal 100-400 [facility] Comment on above: Order Comment: No: D o not add to previous draw Performed By: #### 5 0103 ####[facility] [place] [address], [facility] WBC (Leukocytes) 5.4 Thou/mm3 Normal 4.0-10.0 [facility] Comment on above: Order Comment: No: D o not add to previous draw Performed By: #### 5 0103 ####[facility] [facility] [place] [address], [facility] COMP METABOLIC PANELon 06-09 Alanine aminotransferase (ALT) 20 U/L Normal 7-52 [facility] Comment on above: Order Comment: No: D o not add to previous draw Performed By: #### 4 1000, 00710, 84370 ####[facility] [place] [address], [facility] Albumin 3.6 g/dL Normal 3.5-5.7 [facility] Comment on above: Order Comment: No: D o not add to previous draw Performed By: #### 4 1000, 99588, 93760 ####[facility] [place] [address], [facility] ALKALINE PHOSPH 79 IU/L Normal 34-104 [facility] Comment on above: Order Comment: No: D o not add to previous draw Performed By: #### 4 1000, 04569, 94261 ####[facility] [place] [address], [facility] Aspartate aminotransferase (AST) 21 U/L Normal 13-39 [facility] Comment on above: Order Comment: No: D o not add to previous draw Performed By: #### 4 1000, 97747, 67315 ####[facility] [place] [address], [facility] Bilirubin (total) 0.6 mg/dL Normal 0.3-1.0 [facility] Comment on above: Order Comment: No: D o not add to previous draw Performed By: #### 4 1000, 90192, 97116 ####[facility] [place] [address], [facility] Calcium 8.5 mg/dL Low 8.6-10.3 [facility] Comment on above: Order Comment: No: D o not add to previous draw Performed By: #### 4 1000, 31077, 87569 ####[facility] [place] [address], [facility] Chloride 105 mmol/L Normal 98-107 [facility] Comment on above: Order Comment: No: D o not add to previous draw Performed By: #### 4 1000, 92020, 34396 ####[facility] [place] [address], [place] CO2 23 mmol/L Normal 21-31 [facility] Comment on above: Order Comment: No: D o not add to previous draw Performed By: #### 4 1000, 47525, 86850 ####[facility] [id number], [place] Creatinine 0.69 mg/dL Low 0.70-1.30 [facility] Comment on above: Order Comment: No: D o not add to previous draw Performed By: #### 4 1000, 22895, 24038 ####[facility] [place] [address], [facility] eGFR (black) mL/min/{1.73_m2} Normal >60 [facility] Comment on above: Order Comment: No: D o not add to previous draw Performed By: #### 4 1000, 17622, 65221 ####[facility] [place] [address], [facility] eGFR (non-black) mL/min/{1.73_m2} Normal >60 [facility] Comment on above: Order Comment: No: D o not add to previous draw Performed By: #### 4 1000, 61552, 49502 ####[facility] [place] [address], [facility] Glucose mass conc 72 mg/dL Normal 70-100 [facility] Comment on above: Order Comment: No: D o not add to previous draw Performed By: #### 4 1000, 16278, 14825 ####[facility] [place] [address], [facility] Potassium molar conc 4.0 mmol/L Normal 3.5-5.1 [facility] Comment on above: Order Comment: No: D o not add to previous draw Performed By: #### 4 1000, 76492, 27926 ####[facility] [place] [address], [facility] Protein 5.8 g/dL Low 6.0-8.3 [facility] Comment on above: Order Comment: No: D o not add to previous draw Performed By: #### 4 1000, 49273, 40350 ####[facility] [place] [address], [facility] Sodium 135 mmol/L Low 136-145 [facility] Comment on above: Order Comment: No: D o not add to previous draw Performed By: #### 4 1000, 91567, 50469 ####[facility] [place] [address], [facility] Urea nitrogen 7 mg/dL Normal 7-25 [facility] Comment on above: Order Comment: No: D o not add to previous draw Performed By: #### 4 1000, 81890, 63819 ####[facility] [place] [address], [facility] LACTATE BLOODon 06-09-2017 Lactate 0.5 mmol/L Normal .5-2.2 [facility] Comment on above: Order Comment: No: D o not add to previous draw Performed By: #### 1 0054 ####[facility] [place] [address], [facility] MAGNESIUM BLOODon 06-09-2017 Magnesium 2.0 mg/dL Normal 1.9-2.7 [facility] Comment on above: Order Comment: No: D o not add to previous draw Performed By: #### 4 1000, 43363, 98763 ####[facility] [place] [address], [facility] PHOSPHORUS BLOODon 7 Phosphate 3.0 mg/dL Normal 2.5-5.0 [facility] Comment on above: Order Comment: No: D o not add to previous draw Performed By: #### 4 1000, 36054, 38835 ####[facility] [place] [address], [facility] BASIC METABOLIC PANELon 05-21 Calcium 8.7 mg/dL Normal 8.6-10.3 [facility] Comment on above: Order Comment: Yes: Add to Previous draw if able Performed By: #### 0 0071 ####[facility] [place] [address], [facility] Chloride 102 mmol/L Normal 98-107 [facility] Comment on above: Order Comment: Yes: Add to Previous draw if able Performed By: #### 0 0071 ####[facility] [place] [address], [facility] CO2 25 mmol/L Normal 21-31 [facility] Comment on above: Order Comment: Yes: Add to Previous draw if able Performed By: #### 0 0071 ####[facility] [place] [address], [facility] Creatinine 0.73 mg/dL Normal 0.70-1.30 [facility] Comment on above: Order Comment: Yes: Add to Previous draw if able Performed By: #### 0 0071 ####[facility] [place] [address], [facility] eGFR (black) mL/min/{1.73_m2} Normal >60 [facility] Comment on above: Order Comment: Yes: Add to Previous draw if able Performed By: #### 0 0071 ####[facility] [facility] eGFR (non-black) mL/min/{1.73_m2} Normal >60 [facility] Comment on above: Order Comment: Yes: Add to Previous draw if able Performed By: #### 0 0071 ####[facility] [facility] [address], [facility] Glucose mass conc 97 mg/dL Normal 70-100 [facility] Comment on above: Order Comment: Yes: Add to Previous draw if able Performed By: #### 0 0071 ####[facility] [place] [address], [facility] Potassium molar conc 3.9 mmol/L Normal 3.5-5.1 [facility] Comment on above: Order Comment: Yes: Add to Previous draw if able Performed By: #### 0 0071 ####[facility] [place] [address], [facility] Sodium 133 mmol/L Low 136-145 [facility] Comment on above: Order Comment: Yes: Add to Previous draw if able Performed By: #### 0 0071 ####[facility] [facility].[address] Urea nitrogen 6 mg/dL Low 7-25 [facility] Comment on above: Order Comment: Yes: Add to Previous draw if able Performed By: #### 0 0071 ####[address] CBC COMPLETE BLOOD COUNTon 0 - Erythrocyte distribution width Auto Ratio (RBC) 16.3 % Normal 11.5-16.9 [facility] Comment on above: Order Comment: Yes: Add to Previous draw if able Performed By: #### 5 0608 ####[address] Erythrocytes (RBC) 4.73 mill/mm3 Normal 4.30-5.90 [facility] Comment on above: Order Comment: Yes: Add to Previous draw if able Performed By: #### 5 0608 ####[address] Hematocrit (HCT) 45.0 % Normal 39.0-55.0 [facility] Comment on above: Order Comment: Yes: Add to Previous draw if able Performed By: #### 5 0608 ####[address] Hemoglobin mass conc (Bld) 15.4 g/dL Normal 13.9-16.3 [facility] Comment on above: Order Comment: Yes: Add to Previous draw if able Performed By: #### 5 0608 ####[address] MCH 32.5 pg High 24.0-32.0 [facility] Comment on above: Order Comment: Yes: Add to Previous draw if able Performed By: #### 5 0608 ####[address] MCHC mass conc (RBC) 34.2 g/dL Normal 32.0-36.0 [facility] Comment on above: Order Comment: Yes: Add to Previous draw if able Performed By: #### 5 0608 ####[address] MCV 95.1 fL Normal 80.0-100.0 [facility] Comment on above: Order Comment: Yes: Add to Previous draw if able Performed By: #### 5 0608 ####[address] PLAT CNT 157 Thou/mm3 Normal 100-400 [facility] Comment on above: Order Comment: Yes: Add to Previous draw if able Performed By: #### 5 0608 ####[address] WBC (Leukocytes) 9.0 Thou/mm3 Normal 4.0-10.0 [facility] Comment on above: Order Comment: Yes: Add to Previous draw if able Performed By: #### 5 0608 ####[address] ESOPHAGRAMon 06-08-2017 ESOPHAGRAM [facility] [id number] [place] [address] P atient Name: DUTCH MONIQUE : 1955Sex: MAge: Race: WhiteMRN: [id number]. Location: [id number] Status: IVisit #: [id number] Date: 06/08/2017 3:35:00 PMCompleted Date: 06/08/2017 05:01 PMRequesting Provider: GUERITA HICKS Attending Provider: SHARON EPSTEIN Report Copy To: Signs & Symptoms: DysphagiaHistory: Patient history not availableComments: R/O PerforationExam: ESOPHAGRAMAccession #: [id number] ======ESOPHAGRAM 06/08/2017 5:01 PM EDT SIGNS AND [...] Electronically signed by:Dutch De Souza. Transcribed by: [email or web address], User Resident: ARCELIA COLINElectronically Signed by: DUTCH DE SOUZA @ 06/09/2017 07:05 AMI personally read this/these film(s) with this resident Normal [facility] Comment on above: Order Comment: R/O P erforation History and Physicalon 06-08 History and Physical [id number] Dutch Monique Admitted: 06/08/2017 Date of : 1955 Attending Physician: Sharon Epstein MD Room #: [id number] Discharge Date: HISTORY AND PHYSICALCHIEF COMPLAINT: Neck [...] speaking/hoarseness.He eventually went and [facility], where a CT of the neck showed some prevertebral subcutaneousemphysema as well as a fracture of the right portion of the hyoid bone. Hewas then transferred to [facility] for furtherevaluation in stable condition.PAST MEDICAL HISTORY: Type 2 diabetes mellitus, epilepsy, COPD/chronicbronchitis, and chronic back pain.PAST SURGICAL HISTORY: Back surgery, right knee ACL surgery,cholecystectomy, nose surgery, and teeth removal.FAMILY HISTORY: Noncontributory.SOCIAL HISTORY: One-half pack per day smoker for at least 14 years. Hehad quit before this time for 23 years, but smoked before then. No alcoholor drug use.MEDICATIONS: Felch, tizanidine, phenytoin, primidone, Effexor XR, Zocor,lamotrigine, zolpidem, [...] respiratory rate 23, blood pressure 138/67, O2 [id number]% on room air.GENERAL: No acute distress. Hoarseness [...] his neck and now presents with increased [id number] painand hoarseness with imaging showing prevertebral subcutaneous [...] Dict: 06/08/2017/12:48 P/WYATT Cuellarate Trans: 06/08/2017 08:50 P/[id number] Normal [facility] TOX PANEL URINEon 06-08-2017 50 THC Negative Normal NEGATIVE [facility] Comment on above: Order Comment: Yes: Add to Previous draw if able Performed By: #### 3 1949 ####[facility] [place] [address], [facility] BARBITURATES Positive Abnormal NEGATIVE [facility] Comment on above: Order Comment: Yes: Add to Previous draw if able Performed By: #### 3 1433 ####[facility] [place] [address], [place] MONO AMPHET Negative Normal NEGATIVE [facility] Comment on above: Order Comment: Yes: Add to Previous draw if able Performed By: #### 3 1079 ####[facility] [place] [address], [place] PROPOXYPHENE Negative Normal NEGATIVE [facility] Comment on above: Order Comment: Yes: Add to Previous draw if able Performed By: #### 3 1079 ####[facility] [place] [address], [place] TRICYCLICS Negative Normal NEGATIVE [facility] Comment on above: Order Comment: Yes: Add to Previous draw if able Performed By: #### 3 1079 ####[facility] [place] [address], [place] Urine, benzodiazepines presence Negative Normal NEGATIVE [facility] Comment on above: Order Comment: Yes: Add to Previous draw if able Performed By: #### 3 1079 ####[facility] [place] [address], [place] Urine, cocaine presence Negative Normal NEGATIVE [facility] Comment on above: Order Comment: Yes: Add to Previous draw if able Performed By: #### 3 1079 ####[facility] [place] [address], [place] Urine, methadone presence Negative Normal NEGATIVE [facility] Comment on above: Order Comment: Yes: Add to Previous draw if able Performed By: #### 3 1079 ####[facility] [place] [address], [place] Urine, opiates presence Positive Abnormal NEGATIVE [facility] Comment on above: Order Comment: Yes: Add to Previous draw if able Performed By: #### 3 1079 ####[facility] [place] [address], [place] Urine, phencyclidine presence Negative Normal NEGATIVE [facility] Comment on above: Order Comment: Yes: Add to Previous draw if able Performed By: #### 3 1079 ####[facility] Vital Signs Date Time Vital Sign Value Performing Clinician Leighann matias 06-15-2025 13:50-0400 Body height 175.3 cm America Hemmer PA Work Phone: [facility] 06-15-2025 13:50-0400 Body mass index (BMI) [Ratio] 22.71 kg/m2 America Hemmer PA Work Phone: [facility] 06-15-2025 13:50-0400 Body weight 69.76 kg America Hemmer PA Work Phone: [facility] 06-15-2025 13:50-0400 Diastolic blood pressure 84 mm[Hg] America Hemmer PA Work Phone: [facility] 06-15-2025 13:50-0400 Heart rate 78 /min America Hemmer PA Work Phone: [facility] 06-15-2025 13:50-0400 Respiratory rate 16 /min America Hemmer PA Work Phone: [facility] 06-15-2025 13:50-0400 SaO2% (BldA) [Mass fraction] 98 % America Hemmer PA Work Phone: [facility] 06-15-2025 13:50-0400 Systolic blood pressure 132 mm[Hg] America Hemmer PA Work Phone: [facility] 06-01-2025 12:49-0400 Body height 175.26 cm Mitul Richmond II Work Phone: [facility] 06-01-2025 12:49-0400 Body mass index (BMI) [Ratio] 21.7 kg/m2 Mitul Richmond II Work Phone: [facility] 06-01-2025 12:49-0400 Body weight 66.67 kg Mitul Richmond II Work Phone: [facility] 06-01-2025 12:49-0400 Diastolic blood pressure 64 mm[Hg] Mitul Richmond II Work Phone: [facility] 06-01-2025 12:49-0400 Heart rate 79 /min Mitul Richmond II Work Phone: [facility] 06-01-2025 12:49-0400 Respiratory rate 16 /min Mitul Richmond II Work Phone: [facility] 06-01-2025 12:49-0400 SaO2% (BldA) [Mass fraction] 96 % Mitul Richmond II Work Phone: [facility] 06-01-2025 12:49-0400 Systolic blood pressure 122 mm[Hg] Mitul Richmond II Work Phone: [facility] 05-26-2025 11:19-0400 Body height 175.3 cm Frandy Brown DPM Work Phone: [facility] 05-26-2025 11:19-0400 Body mass index (BMI) [Ratio] 23.48 kg/m2 Frandy Brown DPM Work Phone: [facility] 05-26-2025 11:19-0400 Body weight 72.12 kg Frandy Brown DPM Work Phone: [facility] 05-26-2025 11:19-0400 Respiratory rate 16 /min Frandy Brown DPM Work Phone: [facility] 03-17-2025 11:53-0400 Body height 175.3 cm Frandy Brown DPM Work Phone: [facility] 03-17-2025 11:53-0400 Body mass index (BMI) [Ratio] 23.48 kg/m2 Frandy Brown DPM Work Phone: [facility] 03-17-2025 11:53-0400 Body weight 72.12 kg Frandy Brown DPM Work Phone: [facility] 03-17-2025 11:53-0400 Respiratory rate 18 /min Franyd Brown DPM Work Phone: [facility] 03-15-2025 13:07-0400 Body height 175.3 cm America Hemmer PA Work Phone: [facility] 03-15-2025 13:07-0400 Body mass index (BMI) [Ratio] 23.48 kg/m2 America Hemmer PA Work Phone: [facility] 03-15-2025 13:07-0400 Body weight 72.12 kg America Hemmer PA Work Phone: [facility] 03-15-2025 13:07-0400 Diastolic blood pressure 68 mm[Hg] America Hemmer PA Work Phone: [facility] 03-15-2025 13:07-0400 Heart rate 72 /min America Hemmer PA Work Phone: [facility] 03-15-2025 13:07-0400 Respiratory rate 16 /min America Hemmer PA Work Phone: [facility] 03-15-2025 13:07-0400 SaO2% (BldA) [Mass fraction] 97 % America Hemmer PA Work Phone: [facility] 03-15-2025 13:07-0400 Systolic blood pressure 118 mm[Hg] America Hemmer PA Work Phone: [facility] 02-16-2025 11:33-0400 Diastolic blood pressure 80 mm[Hg] Christopher Melissa DO Work Phone: [facility] 02-16-2025 11:33-0400 Heart rate 72 /min Christopher Melissa DO Work Phone: [facility] 02-16-2025 11:33-0400 Systolic blood pressure 135 mm[Hg] Christopher Melissa DO Work Phone: [facility] 02-10-2025 13:17-0400 Body height 175.3 cm Melissa Goldberg PA Work Phone: [facility] 02-10-2025 13:17-0400 Body mass index (BMI) [Ratio] 22.15 kg/m2 Melissa Goldberg PA Work Phone: [facility] 02-10-2025 13:17-0400 Body weight 68.04 kg Melissa Goldberg PA Work Phone: [facility] 02-10-2025 13:17-0400 Diastolic blood pressure 68 mm[Hg] Melissa Goldberg PA Work Phone: [facility] 02-10-2025 13:17-0400 Systolic blood pressure 118 mm[Hg] Melissa Goldberg PA Work Phone: [facility] 01-13-2025 14:28-0400 Body height 175.3 cm America Hemmer PA Work Phone: [facility] 01-13-2025 14:28-0400 Body mass index (BMI) [Ratio] 21.62 kg/m2 America Hemmer PA Work Phone: [facility] 01-13-2025 14:28-0400 Body weight 66.41 kg America Hemmer PA Work Phone: [facility] 01-13-2025 14:28-0400 Diastolic blood pressure 66 mm[Hg] America Hemmer PA Work Phone: [facility] 01-13-2025 14:28-0400 Heart rate 72 /min America Hemmer PA Work Phone: [facility] 01-13-2025 14:28-0400 Respiratory rate 16 /min America Hemmer PA Work Phone: [facility] 01-13-2025 14:28-0400 SaO2% (BldA) [Mass fraction] 97 % America Hemmer PA Work Phone: [facility] 01-13-2025 14:28-0400 Systolic blood pressure 128 mm[Hg] America Hemmer PA Work Phone: [facility] 12-14-2024 13:29-0500 Body height 175.3 cm America Hemmer PA Work Phone: [facility] 12-14-2024 13:29-0500 Body mass index (BMI) [Ratio] 22.68 kg/m2 America Hemmer PA Work Phone: [facility] 12-14-2024 13:29-0500 Body weight 69.67 kg America Hemmer PA Work Phone: [facility] 12-14-2024 13:29-0500 Diastolic blood pressure 70 mm[Hg] America Hemmer PA Work Phone: [facility] 12-14-2024 13:29-0500 Heart rate 71 /min America Hemmer PA Work Phone: [facility] 12-14-2024 13:29-0500 Respiratory rate 16 /min America Hemmer PA Work Phone: [facility] 12-14-2024 13:29-0500 SaO2% (BldA) [Mass fraction] 97 % America Hemmer PA Work Phone: [facility] 12-14-2024 13:29-0500 Systolic blood pressure 132 mm[Hg] America Hemmer PA Work Phone: [facility] 10-26-2024 12:54-0500 Diastolic blood pressure 78 mm[Hg] Christopher Melissa DO Work Phone: [facility] 10-26-2024 12:54-0500 Heart rate 81 /min Christopher Melissa DO Work Phone: [facility] 10-26-2024 12:54-0500 SaO2% (BldA) [Mass fraction] 96 % Christopher Melissa DO Work Phone: [facility] 10-26-2024 12:54-0500 Systolic blood pressure 148 mm[Hg] Christopher Melissa DO Work Phone: [facility] 09-28-2024 13:27-0500 Body mass index (BMI) [Ratio] 23.18 kg/m2 Maximo Nguyen NP Work Phone: [facility] 09-28-2024 13:27-0500 Body weight 71.22 kg Maximo Nguyen CABLE SPLICER APPRENTICE Work Phone: [facility] 09-28-2024 13:27-0500 Diastolic blood pressure 75 mm[Hg] Maximo Nguyen CABLE SPLICER APPRENTICE Work Phone: [facility] 09-28-2024 13:27-0500 Heart rate 76 /min Maximo Nguyen CABLE SPLICER APPRENTICE Work Phone: [facility] 09-28-2024 13:27-0500 Systolic blood pressure 143 mm[Hg] Maximo Nguyen CABLE SPLICER APPRENTICE Work Phone: [facility] 08-31-2024 12:55-0500 Body height 175.3 cm America Hemmer PA Work Phone: [facility] 08-31-2024 12:55-0500 Body mass index (BMI) [Ratio] 22.59 kg/m2 America Hemmer PA Work Phone: [facility] 08-31-2024 12:55-0500 Body weight 69.4 kg America Hemmer PA Work Phone: [facility] 08-31-2024 12:55-0500 Diastolic blood pressure 72 mm[Hg] America Hemmer PA Work Phone: [facility] 08-31-2024 12:55-0500 Heart rate 62 /min America Hemmer PA Work Phone: [facility] 08-31-2024 12:55-0500 SaO2% (BldA) [Mass fraction] 99 % America Hemmer PA Work Phone: [facility] 08-31-2024 12:55-0500 Systolic blood pressure 134 mm[Hg] America Hemmer PA Work Phone: [facility] 08-03-2024 12:39-0400 Diastolic blood pressure 79 mm[Hg] Manueler Melissa DO Work Phone: [facility] 08-03-2024 12:39-0400 Heart rate 79 /min Christopher Melissa DO Work Phone: [facility] 08-03-2024 12:39-0400 SaO2% (BldA) [Mass fraction] 94 % Alvino Toddett DO Work Phone: [facility] 08-03-2024 12:39-0400 Systolic blood pressure 150 mm[Hg] Dariwndaniel Toddett DO Work Phone: [facility] 07-08-2024 14:19-0400 Body height 175.3 cm Frandy Avitia DPM Work Phone: [facility] 07-08-2024 14:19-0400 Body mass index (BMI) [Ratio] 22.45 kg/m2 Frandy Avitia DPM Work Phone: [facility] 07-08-2024 14:19-0400 Body weight 68.95 kg Frandy Avitia DPM Work Phone: [facility] 07-08-2024 14:19-0400 Diastolic blood pressure 82 mm[Hg] Frandy Avitia DPM Work Phone: [facility] 07-08-2024 14:19-0400 Heart rate 75 /min Frandy Avitia DPM Work Phone: [facility] 07-08-2024 14:19-0400 Respiratory rate 18 /min Frandymusa Avitia DPM Work Phone: [facility] 07-08-2024 14:19-0400 Systolic blood pressure 130 mm[Hg] Frandy Avitia DPM Work Phone: [facility] 07-07-2024 13:20-0400 Body mass index (BMI) [Ratio] 22.45 kg/m2 Maximo Nguyen CABLE SPLICER APPRENTICE Work Phone: [facility] 07-07-2024 13:20-0400 Body weight 68.95 kg Maximo Nguyen CABLE SPLICER APPRENTICE Work Phone: [facility] 07-07-2024 13:20-0400 Diastolic blood pressure 78 mm[Hg] Maximo Nguyen CABLE SPLICER APPRENTICE Work Phone: [facility] 07-07-2024 13:20-0400 Heart rate 76 /min Maximo Nguyen CABLE SPLICER APPRENTICE Work Phone: [facility] 07-07-2024 13:20-0400 Systolic blood pressure 135 mm[Hg] Maximo Nguyen CABLE SPLICER APPRENTICE Work Phone: [facility] 03-10-2024 13:02-0400 Body height 175.3 cm Marizol Hightower DO Work Phone: [facility] [employer] 03-10-2024 13:02-0400 Body mass index (BMI) [Ratio] 21.41 kg/m2 Marizol Hightower DO Work Phone: [facility] [employer] 03-10-2024 13:02040 Body weight 65.77 kg Marizol Hightower DO Work Phone: [facility] 03-10-2024 13:02-0400 Diastolic blood pressure 72 mm[Hg] Marizol Hightower DO Work Phone: [facility] [employer] 03-10-2024 13:02-0400 Heart rate 79 /min Marizol Hightower DO Work Phone: [facility] [employer] 03-10-2024 13:02-0400 Systolic blood pressure 156 mm[Hg] Marizol Hightower DO Work Phone: [facility] Encounters Encounter Date Encounter Type Care Provider Facility Start: 06-15-2025 End: 06-15-2025 Bamboo flowsheet America GAMEZ Work Phone: [facility] Start: 06-15-2025 End: 06-15-2025 Bamboo flowsheet America GAMEZ Work Phone: [facility] [facility] Start: 06-15-2025 End: 06-15-2025 Office outpatient visit 25 minutes America GAMEZ Work Phone: [facility] [facility] Comment on above: Degenerative disc di sease at L5-S1 level (Primary Dx); Localization-related epilepsy (HCC); Tobacco dependence; Falls frequently; Gait instability; Panlobular emphysema (HCC) Start: 06-14-2025 End: 06-14-2025 Reftracy Richmond MD Work Phone: [facility] [place] [facility] Comment on above: Localization-related epilepsy (HCC) Start: 06-01-2025 End: 06-01-2025 ambulatory Mitul Richmond II Work Phone: [facility] Work Phone: Start: 06-01-2025 End: 06-01-2025 Patient encounter procedure Gloria Beard MARKETING FINANCE SPECIALIST-MATERIALS MANAGER-C -[facility] [place] Work Phone: Start: 05-26-2025 End: 05-26-2025 Bamboo flowsheet Frandy Avitia DPM Work Phone: [facility] Start: 05-26-2025 End: 05-26-2025 Bamboo flowsheet Frandy Avitia DPM Work Phone: [facility] Start: 05-26-2025 End: 05-26-2025 Patient encounter procedure Frandy Avitia DPM Work Phone: [facility] Comment on above: Diabetes mellitus du e to underlying condition with diabetic polyneuropathy, unspecified whether fci insulin use (HCC) (Primary Dx); Pain due to onychomycosis of toenails of both feet Start: 05-26-2025 End: 05-26-2025 ambulatory FRANDY AVITIA Not Available Start: 05-10-2025 End: 05-12-2025 Refill Mitul Richmond MD Work Phone: [facility] Comment on above: Degenerative disc di sease at L5-S1 level Start: 03-28-2025 Non-patient / Non-visit [facility] Work Phone: Start: 03-17-2025 End: 03-17-2025 Bamboo flowsheet Frandy Avitia DPM Work Phone: [facility] Start: 03-17-2025 End: 03-17-2025 Bamboo flowsheet Frandy Avitia DPM Work Phone: [facility] Start: 03-17-2025 End: 03-17-2025 ambulatory FRANDY AVITIA Not Available Start: 03-17-2025 End: 03-17-2025 Patient encounter procedure Frandy Avitia DPM Work Phone: [facility] Comment on above: Diabetes mellitus du e to underlying condition with diabetic polyneuropathy, unspecified whether fci insulin use ([facility]) (Primary Dx); PVD (peripheral vascular disease) ([facility]); Pain due to onychomycosis of toenails of both feet Start: 03-15-2025 End: 03-15-2025 Bamboo flowsheet America Christianson PA Work Phone: [facility] Start: 03-15-2025 End: 03-15-2025 Bamboo flowsheet America Christianson PA Work Phone: [facility] Start: 03-15-2025 End: 03-15-2025 Office outpatient visit 25 minutes America GAMEZ Work Phone: [facility] Comment on above: Degenerative disc di sease at L5-S1 level (Primary Dx); Other chronic pain; Falls frequently; Gait instability; Localization-related epilepsy ([facility]) Start: 03-15-2025 End: 03-15-2025 ambulatory AMERICA CHRISTIANSON Not Available Start: 03-01-2025 End: 03-02-2025 Reftracy Richmond MD Work Phone: [facility] Comment on above: Degenerative disc di sease at L5-S1 level Start: 02-28-2025 End: 02-28-2025 Shawn Richmond MD Work Phone: [facility] Comment on above: Degenerative disc di sease at L5-S1 level Start: 02-23-2025 End: 02-23-2025 Shawn Richmond MD Work Phone: [facility] Comment on above: Degenerative disc di sease at L5-S1 level Lumbar radiculopathy ; Degenerative disc disease at L5-S1 level Start: 02-16-2025 End: 02-16-2025 Bamboo flowsheet Alvino Torres DO Work Phone: [facility] Start: 02-16-2025 End: 02-16-2025 Bamboo flowsheet Alvino Torres DO Work Phone: [facility] [place] Start: 02-16-2025 End: 02-16-2025 Patient encounter procedure Alvino Torres DO Work Phone: [facility] Comment on above: Lumbar radiculopathy (Primary Dx); Lumbosacral radiculopathy Start: 02-16-2025 End: 02-16-2025 ambulatory DARWINDANIEL TORRES Not Available Start: 02-10-2025 End: 02-10-2025 Office outpatient visit 15 minutes Melissa GAMEZ Work Phone: [facility] [place] Comment on above: Lumbar radiculopathy (Primary Dx); Degenerative disc disease at L5-S1 level; Gait instability; Essential tremor; Polypharmacy; Seizure disorder (CMS/HCC); Polyneuropathy Start: 02-10-2025 End: 02-10-2025 ambulatory MELISSA GOLDBERG Not Available Start: 01-27-2025 End: 01-27-2025 Shawn Richmond MD Work Phone: [facility] Comment on above: Degenerative disc di sease at L5-S1 level Start: 01-24-2025 End: 01-26-2025 Shawn Richmond MD Work Phone: [facility] Comment on above: Degenerative disc di sease at L5-S1 level Start: 01-13-2025 End: 01-13-2025 Office outpatient visit 25 minutes America GAMEZ Work Phone: [facility] Comment on above: Contusion of left kn ee, subsequent encounter (Primary Dx); Primary hypertension (CMS/HCC); Abnormal gait; Falls frequently; Degenerative disc disease at L5-S1 level; Other chronic pain Start: 01-13-2025 End: 01-13-2025 ambulatory AMERICA CHRISTIANSON Not Available Start: 12-20-2024 End: 12-22-2024 Refill Frandy [facility] Comment on above: Degenerative disc di sease at L5-S1 level Start: 12-14-2024 End: 12-14-2024 Office outpatient visit 25 minutes America Juan M Jess GAMEZ Work Phone: [facility] Comment on above: Degenerative disc di sease at L5-S1 level (Primary Dx); Panlobular emphysema (CMS/HCC); Primary hypertension (CMS/HCC); Simple chronic bronchitis (CMS/HCC); Tobacco dependence Start: 12-14-2024 End: 12-14-2024 ambulatory AMERICA BUSTOSKHUSHI Not Available Start: 12-13-2024 End: 12-13-2024 Refill Mitul Richmond MD Work Phone: [facility] Comment on above: Localization-related epilepsy (CMS/HCC) Start: 11-25-2024 End: 11-25-2024 Refill Mitul Richmond MD Work Phone: [facility] Comment on above: Degenerative disc di sease at L5-S1 level Start: 10-27-2024 End: 10-27-2024 Refill Mitul Richmond MD Work Phone: [facility] Comment on above: Localization-related epilepsy (CMS/HCC) Start: 10-26-2024 End: 10-26-2024 Bamboo flowsheet Alvino Torres DO Work Phone: [facility] Start: 10-26-2024 End: 10-26-2024 Bamboo flowsheet Alvino Torres DO Work Phone: [facility] Start: 10-26-2024 End: 10-26-2024 Patient encounter procedure Alvino Torres DO Work Phone: [facility] Comment on above: Lumbar radiculopathy (Primary Dx); Lumbosacral radiculopathy Start: 10-26-2024 End: 10-27-2024 Refill Mitul Richmond MD Work Phone: [facility] Comment on above: Localization-related epilepsy (CMS/HCC) Start: 10-25-2024 End: 10-26-2024 Refill Mitul Richmond MD Work Phone: [facility] Comment on above: Degenerative disc di sease at L5-S1 level Start: 10-19-2024 End: 10-19-2024 Refill Mitul Richmond MD Work Phone: [facility] Comment on above: Degenerative disc di sease at L5-S1 level Start: 09-28-2024 End: 09-28-2024 Office outpatient visit 25 minutes Maximo Nguyen NP Work Phone: [facility] [address] Comment on above: Lumbar radiculopathy [...] FM Comment on above: Medicare annual well ness visit, subsequent (Primary Dx); ACP (advance care planning); Encounter for immunization; Diabetic peripheral neuropathy associated with type 2 diabetes mellitus ([facility]/HCC); Essential tremor; Localization-related epilepsy ([facility]); Lumbar radiculopathy; Lumbosacral neuritis; Lumbosacral radiculopathy; Polyneuropathy; Right lumbar radiculopathy; Seizure disorder (CMS/HCC); Panlobular emphysema ([facility]/HCC); Hiatal hernia; Simple chronic bronchitis ([facility]/HCC); Hemorrhoids, external; Primary hypertension ([facility]/HCC); Gastro-esophageal reflux disease without esophagitis; Tubulovillous adenoma [...] location; Abnormal gait; Balance disorder; Depressive disorder ([facility]); Falls frequently; Gait instability; Hyponatremia; Migraine without aura and without status migrainosus, not intractable ([facility]); Mixed hyperlipidemia ([facility]); Tobacco dependence due to cigarettes; Tremor; Visual impairment Start: 08-31-2024 End: 08-31-2024 ambulatory AMERICA CHRISTIANSON Not Available Start: 08-30-2024 End: 08-30-2024 Refill Dariela Bolton LPN [facility] Comment on above: Localization-related epilepsy ([facility]); Degenerative disc disease at L5-S1 level Start: 08-20-2024 End: 08-23-2024 Refill Maximo Nguyen NP Work Phone: [facility] Comment on above: Degenerative disc di sease at L5-S1 level Start: 08-16-2024 End: 08-16-2024 Telephone encounter [facility] Braga [facility] Comment on above: Med Refill Start: 08-03-2024 End: 08-03-2024 Bamboo flowsheet Alvino Torres DO Work Phone: [facility] [place] [facility] Start: 08-03-2024 End: 08-03-2024 Bamboo flowsheet Alvino Torres DO Work Phone: [facility] [address] Start: 08-03-2024 End: 08-03-2024 Patient encounter procedure Alvino Torres DO Work Phone: [facility] Comment on above: Lumbar radiculopathy (Primary Dx); Lumbosacral radiculopathy Start: 08-03-2024 End: 08-03-2024 ambulatory ALVINO TORRES Not Available Start: 07-28-2024 End: 07-28-2024 Refill Dariela Bolton LPN [facility] Comment on above: Degenerative disc di sease at L5-S1 level Start: 07-26-2024 End: 07-26-2024 Refill Mitul Richmond MD Work Phone: [facility] Comment on above: Depressive disorder ([facility]); Allergic rhinitis, unspecified seasonality, unspecified trigger; Localization-related epilepsy ([facility]) Start: 07-26-2024 End: 07-26-2024 Refill Sharon Bourne MA [facility] Comment on above: Degenerative disc di sease at L5-S1 level Start: 07-08-2024 End: 07-08-2024 Patient encounter procedure Frandy Avitia DPM Work Phone: [facility] Comment on above: Diabetes mellitus du e to underlying condition with diabetic polyneuropathy, unspecified whether master barber insulin use ([facility]) (Primary Dx); Onychomycosis; Toe pain, bilateral Start: 07-08-2024 End: 07-08-2024 Bamboo flowsheet Frandy Avitia DPM Work Phone: [facility] Start: 07-08-2024 End: 07-08-2024 Bamboo flowsheet Frandy Avitia DPM Work Phone: [facility] Start: 07-08-2024 End: 07-08-2024 ambulatory FRANDY AVITIA Not Available Start: 07-07-2024 End: 07-07-2024 Bamboo flowsheet Maximo Jose Angel CABLE SPLICER APPRENTICE Work Phone: [facility] [place] [facility] Start: 07-07-2024 End: 07-07-2024 Bamboo flowsheet Maximo Nguyen CABLE SPLICER APPRENTICE Work Phone: [facility] Start: 07-07-2024 End: 07-07-2024 Office outpatient visit 25 minutes Maximo Nguyen CABLE SPLICER APPRENTICE Work Phone: [facility] Comment on above: Lumbar radiculopathy (Primary Dx); Essential tremor; DDD (degenerative disc disease), lumbar; Polyneuropathy; Gait instability; Seizure disorder (CMS/HCC); Polypharmacy; Degenerative disc disease at L5-S1 level [...] 06-29-2024 End: 06-29-2024 Refill Frandy Lizarraga [facility] Comment on above: Degenerative disc di sease at L5-S1 level Start: 06-24-2024 End: 06-24-2024 Refill America GAMEZ Work Phone: [facility] Comment on above: Localization-related epilepsy (CMS/HCC) Start: 03-10-2024 End: 03-10-2024 ambulatory MARIZOL HIGHTOWER [facility] Start: 03-10-2024 End: 03-10-2024 Office outpatient new 45 minutes Marizol Hightower DO Work Phone: [facility] Comment on above: Rectal bleeding ([facility] Dx); Other emphysema (CMS-HCC); Tobacco abuse Start: 11-24-2023 Chart abstracting America romero PA Work Phone: [facility] Start: 02-06-2023 End: 02-07-[address] MITUL RICHMOND Facility: Start: 08-14-2017 Ambulatory ELLEN MORRIS Amanda ty:[facility] Start: 06-08-2017 End: 06-09-2017 Ambulatory SHARON EPSTEIN Facility:[facility] Procedures Date Procedure Procedure Detail Performing Clinician Start: 02-16-2025 NERVE BLOCK Melissa Goldberg PA Work Phone: Start: 03-21-2021 Colonoscopy America romero PA Work Phone: Start: 06-08-2017 FLUOROSCOPY OF ESOPH LOUISE USING OTHER CONTRAST DUTCH DE SOUZA Plan of Treatment Date Care Activity Detail Author Start: 03-21-2031 Screening for malign ant neoplasm of colon [facility] Start: 08-18-2025 End: 08-18-2025 Patient encounter procedure 08/18/2025 11:30 AM EDT Procedure Visit [facility] [address] [facility] [address] [place] [address] Frandy Avitia, DPM [address] [facility] [address] [place] [address] [facility] Start: 07-05-2025 End: 07-05-2025 Patient encounter procedure 07/05/2025 11:30 AM EDT Office Visit [facility] [address] [place] [phone] Alvino Torres DO [address] [place] [id number] [facility] [place] Start: 06-20-2025 Influenza vaccination Influenza Vacc ine (#1) [facility] Start: 06-15-2025 End: 06-15-2025 Patient encounter procedure [facility] Comment on above: Arrived Start: 06-01-2025 End: 06-01-2025 Patient encounter procedure 06/01/2025 1:20 PM EDT Office Visit [facility] [place] [address] [place] [phone] Gloria Beard NP [address] [place] [phone] [facility] Start: 05-26-2025 End: 05-26-2025 Patient encounter procedure [facility] Comment on above: Diabetes mellitus du e to underlying condition with diabetic polyneuropathy, unspecified whether master barber insulin use (HCC) (Primary Dx); Pain due to onychomycosis of toenails of both feet Start: 05-25-2025 Urine screening for protein Diabetes: Urine Protein Screening [facility] Start: 04-15-2025 Glaucoma screening Diabetes: R etinopathy Screening [facility] Start: 03-17-2025 End: 03-17-2025 Patient encounter procedure 03/17/2025 11:40 AM EDT Procedure Visit [facility] [address] [place] [phone] Frandy Avitia DPM [address] [address] [facility] Start: 03-15-2025 End: 03-15-2025 Patient encounter procedure [facility] Comment on above: Arrived Start: 03-10-2025 Adult BMI Screening Adult BMI Screen ing [facility] Start: 03-10-2025 Tobacco Screening Tobacco Screening [facility] Start: 02-17-2025 End: 02-17-2025 Patient encounter procedure 02/17/2025 3:00 PM EDT Procedure Visit [facility] [address] [place] [phone] Frandy Avitia DPM [address] [address] [facility] Start: 02-16-2025 End: 02-16-2025 Patient encounter procedure 02/16/2025 1:15 PM EDT Office Visit [facility] [place] [address] [place] [phone] Alvino Torres DO [address] [place] [id number] [facility] Start: 02-16-2025 End: 02-16-2025 Patient encounter procedure [facility] [place] Comment on above: Arrived Start: 02-10-2025 End: 02-10-2026 Nerve Block Nerve Block Procedures Routine Lumbar radiculopathy Expected: 02/10/2025 (Approximate), Expires: 02/10/2026 [facility] Work Phone: Comment on above: Expected: 02/10/2025 (Approximate), Expires: 02/10/2026 Start: 02-10-2025 End: 02-10-2025 Patient encounter procedure [facility] [place] Start: 12-30-2024 End: 12-30-2024 Patient encounter procedure 12/30/2024 1:00 PM EDT Office Visit [facility] [address] [place] [address] [facility] Start: 12-14-2024 End: 12-14-2024 Patient encounter procedure 12/14/2024 1:30 PM EST Office Visit [facility] [address] [place] [address] America Christianson PA [address] [place] [address] [facility] Start: 12-01-2024 End: 12-01-2024 Patient encounter procedure 12/01/2024 1:00 PM EST Office Visit [facility] [address] [place] [address] America Christianson PA [address] [place] [address] [facility] Start: 10-26-2024 End: 10-26-2024 Patient encounter procedure [facility] [address] Comment on above: Arrived Start: 09-28-2024 End: 09-28-2025 Nerve Block Nerve Block Procedures Routine Lumbar radiculopathy Expected: 09/28/2024 (Approximate), Expires: 09/28/2025 [facility] Work Phone: Comment on above: Expected: 09/28/2024 (Approximate), Expires: 09/28/2025 Start: 09-28-2024 End: 09-28-2024 Patient encounter procedure 09/28/2024 1:20 PM EST Office Visit [facility] [place] [facility] [address] [place] [phone] Maximo Nguyen NP [address] [place], [place] [phone] [facility] [place] [facility] Start: 09-23-2024 End: 09-23-2024 Patient encounter procedure 09/23/2024 2:00 PM EST Procedure Visit [facility] [address] [place] [phone] Frandy Avitia DPM [address] [facility] [address] [place], [place] [phone] [facility] Start: 09-02-2024 End: 09-02-2024 Patient encounter procedure 09/02/2024 2:40 PM EST Office Visit [facility] [place] [address] [place] [phone] Maximo Nguyen NP [address] [place], [place] [phone] [facility] [place] [address] Start: 08-31-2024 End: 08-31-2024 Patient encounter procedure 08/31/2024 1:00 PM EST Office Visit [facility] [address] [place] [address] America Christianson PA [address] [place] [address] [facility] Start: 08-25-2024 Hemoglobin A1c measurement Diabetes: Hemoglobin A1C [facility] Start: 08-08-2024 Medicare Annual Well ness (AWV) Medicare Annual Wellness (AWV) [facility] Start: 08-03-2024 End: 08-03-2024 Patient encounter procedure [facility] [place] [address] Comment on above: Arrived Start: 07-08-2024 End: 07-08-2024 Patient encounter procedure [facility] Comment on above: Diabetes mellitus du e to underlying condition with diabetic polyneuropathy, unspecified whether master barber insulin use ([facility]) (Primary Dx); Onychomycosis; Toe pain, [...] procedure 05/05/2024 7:30 AM EDT Procedure visit [facility] [address] [place] [address] Marizol Hightower DO [address] [place], [place] [id number] [facility] Start: 04-26-2024 End: 04-26-2024 Patient encounter procedure 04/26/2024 3:00 PM EDT Office Visit [facility] [address] [place] [id number] Ayleen Beard, MARKETING FINANCE SPECIALIST-TRAP OPERATOR [address] [place], [place] [id number] [facility] Start: 11-24-2023 End: 11-24-2023 Patient encounter procedure 11/24/2023 2:00 PM EST Office Visit [facility] [address] [place] [id number] America Christianson PA [address] [facility] [address] [place] [address] [facility] Start: 09-06-2023 Hemoglobin A1c measurement Diabetes: Hemoglobin A1C [facility] Start: 07-04-2022 Urine screening for protein Diabetes: Urine Protein Screening [facility] Start: 2021 Fall Risk Screening Fall Risk Screen ing [facility] Start: 1975 DTaP,Tdap and Td Vaccines (1 - Tdap) DTaP,Tdap and Td Vaccines (1 - Tdap) [facility] Start: 1968 Depression Screening Depression Scre ening [facility] Start: 1956 Medicare Annual Well ness Visit Medicare Annual Wellness Visit [facility] Start: 1956 Screening for malign ant neoplasm of colon [facility] Start: 1956 Tobacco Counseling Tobacco Counselin g [facility] End: 03-10-2025 Colonoscopy Colonoscopy GI Routine Rectal bleeding 1 Occurrences starting 03/10/2024 until 03/10/2025 [facility] Work Phone: Comment on above: 1 Occurrences starti ng 03/10/2024 until 03/10/2025 MR Lumbar spine WO contrast MR lumbar spine wo contrast Imaging Routine Lumbar radiculopathy DDD (degenerative disc disease), lumbar Gait instability Ordered: 07/07/2024 [facility] Work Phone: Comment on above: Ordered: 07/07/2024 Immunizations Immunization Date Immunization Notes Care Provider Fa cili 08-31-2024 Influenza, High-dose Seasonal, Quadrivalent, Preservative Free America GAMEZ Work Phone: [facility] 08-31-2024 influenza virus vacc ine, unspecified formulation Mitul Richmond MD Work Phone: [facility] 09-10-2023 Pneumococcal Conjuga te PCV 20 America GAMEZ Work Phone: [facility] 09-10-2023 RSV, recombinant, protein subunit RSVpreF, adjuvant reconstitu, 120mcg/0.5mL, PF (Arexvy) America Hemmer PA Work Phone: [facility] 08-14-2023 Pfizer Ziegler Cap SARS-CoV-2 Vaccination America Hemmer PA Work Phone: [facility] 08-08-2023 Influenza, High-dose Seasonal, Quadrivalent, Preservative Free America Hemmer PA Work Phone: [facility] 08-08-2023 influenza virus vacc ine, unspecified formulation Marizol Hightower DO Work Phone: [facility] 08-23-2022 Influenza, Seasonal, Quadrivalent, Adjuvanted America Hemmer PA Work Phone: [facility] 06-27-2021 influenza, injectabl e, quadrivalent, preservative free America Hemmer PA Work Phone: [facility] 11-22-2020 pneumococcal conjuga te vaccine, 13 valent America Hemmer PA Work Phone: [facility] 09-29-2020 zoster vaccine recombinant America Hemmer PA Work Phone: [facility] 2020 influenza, high dose seasonal, preservative-free America Hemmer PA Work Phone: [facility] 06-14-2020 influenza, high dose seasonal, preservative-free America Hemmer PA Work Phone: [facility] 06-14-2020 zoster vaccine recombinant America Hemmer PA Work Phone: [facility] 09-17-2019 Influenza, injectabl e, Madin Rula Canine Kidney, preservative free, quadrivalent America Hemmer PA Work Phone: [facility] 07-16-2018 seasonal influenza, intradermal, preservative free America Hemmer PA Work Phone: [facility] 09-04-2017 seasonal influenza, intradermal, preservative free America Hemmer PA Work Phone: [facility] 10-20-2016 influenza, seasonal, injectable, preservative free America Hemmer PA Work Phone: [facility] 08-15-2015 influenza, seasonal, injectable, preservative free America GAMEZ Work Phone: [facility] 06-22-2014 seasonal influenza, intradermal, preservative free America GAMEZ Work Phone: [facility] 03-22-2014 zoster vaccine, live America GAMEZ Work Phone: [facility] 2013 pneumococcal conjuga te vaccine, 13 valent America GAMEZ Work Phone: [facility] 2012 pneumococcal polysaccharide vaccine, 23 valent America GAMEZ Work Phone: [facility] Payers Date Payer Category Payer Medicaid [id number] 2021 Medicare [id number] 2021 Medicare [id number] 1958 Medicaid [id number] 1958 Medicare [id number] 1955 Unknown [id number] 2.16.84 [id number] 1956 Unknown [id number] 2.16.84 [id number] 1956 Unknown [id number] 2.16.8 [id number] 1956 Unknown [id number] 2.16.8 [id number] 1956 Unknown [id number] 2.16.84 [id number] 1956 Unknown [id number] 2.16.84 0.1.112861.3.579.2.1259 1956 Unknown [id number] 2.16.84 0.1.590541.3.579.2.1259 1956 Unknown [id number] 2.16.84 0.1.576112.3.579.2.9 1956 Unknown [id number] 2.16.84 0.1.529616.3.579.2.9 1956 Unknown [id number] 2.16.84 0.1.614348.3.579.2.1258 1956 Unknown [id number] 2.16.84 0.1.389495.3.579.2.125 1956 Unknown [id number] 2.16.84 0.1.423804.3.579.2.1258 1956 Unknown [id number] 2.16.84 0.1.298554.3.579.2.1258 1956 Unknown [id number] 2.16.84 0.1.134052.3.579.2.1258 1956 Unknown [id number] 2.16.84 0.1.579520.3.579.2.1258 1956 Unknown [id number] 2.16.84 0.1.357021.3.579.2.9 Unknown [id number] Social History Date Type Detail Facility Start: 08-08-2023 End: 05-25-2024 Tobacco smoking status NYIS Smokes tobacco daily [facility] History of tobacco use Cigarette Smoker N [facility] Start: 08-08-2023 End: 06-15-2025 Cigarettes smoked current (pack per day) - Reported 1 [facility] Start: 08-08-2023 End: 05-25-2024 Tobacco use and exposure Smokeless tobacco non-user [facility] Start: 11-11-2023 End: 06-15-2025 Alcohol intake Lifetime non-drinker (finding) [facility] Start: 11-11-2023 End: 06-15-2025 Tobacco use panel [facility] Start: 1955 Sex Assigned At Not on file N [facility] Start: 05-25-2024 Tobacco Comment Smoking 7 ciga rs a day as of 05/25/2024 and vapes. H/o 1 PPD [facility] Start: 03-10-2024 Alcoholic beverage intake Ex-drinker (finding) [facility] Childcare Unknown [facility] Sex Male (finding) [facility] Start: 1955 Sex Assigned At Male F [facility] Medical Equipment Procedure Code Equipment Code Equipment Original Text Equipment Identifier Dates Phacoemulsification of cataract with intraocular lens implantation LENS ACRYSOF IOL [id number] FDA Start: 07-02-2018 1 each by Other route in the morning and 1 each before bedtime. [id number] Start: 07-24-2023 Use as instructe d twice a day [id number] Start: 07-24-2023 End: 07-23-2024 Functional Status Date Assessment Result Facility 06-15-2025 Patient Health Quest ionnaire 2 item (PHQ-2) [Reported] [facility] 03-15-2025 Patient Health Quest ionnaire 2 item (PHQ-2) [Reported] [facility] Clinical Notes 03-10-2024 to 06-15-2025 FRANCO Reyna - 06/15/2025 2:00 PM EDTTelephone Encounter - FRANCO Reyna - 06/14/2025 2:31 PM EDTTelephone Encounter - FRANCO Reyna - 06/14/2025 2:31 PM EDTPatient Instructions Note Date & Type Note Facility 06-15-2025 History of Present illness Narrative Images from the original note were not included. HPI Med Refill Additional comments: [facility] and needs hydrocodone. Medication Question Additional comments: He is not taking Chantix d/t he was having suicidal thoughts. Last edited by Mine Lynn LPN on 06/15/2025 1:50 PM. Subjective Patient ID: Dutch Monique SR is a 69 y.o. male who presents for back pain. Dutch is present today for follow up back [...] (2) PUFFS BEFORE BEDTIME 10.7 g 11 diphenhydrAMINE (BENADryl) [...] pain or moderate pain QTY 14 tabs (Patient not taking: Reported on [...] mouth Daily 100 capsule 3 [DISCONTINUED] HYDROcodone-acetaminophen (Felch) 10-325 MG tablet Take 2 tablets by [...] of right eye Chronic cholecystitis 2009 Convulsions (HCC) Disturbance of skin sensation Enthesopathy of hip region Headache History of degenerative disc disease Hypertension Left supracondylar humerus fracture 06/02/2023 Lesion of ulnar nerve Lumbar radiculopathy Lumbar spondylosis Malaise and fatigue Migraine Neck injury 05/2017 following a fall on railing Pain in limb Presbyopia Pseudophakia of right eye Radiculopathy, lumbosacral region Seizure disorder (HCC) Tremor Type 2 diabetes mellitus (HCC) Past Surgical History: Procedure Laterality Date BACK SURGERY 1981 GALL BLADDER INTRAOCULAR LENS INSERTION Right 06/2018 KNEE SURGERY Right repair LUMBAR TRANSFORAMINAL EPIDURAL STEROID INJECTION Bilateral 12/26/2020 L4 LUMBAR TRANSFORAMINAL EPIDURAL STEROID INJECTION 12/17/2022 L4 NOSE SURGERY NASAL SURGERY ORIF HUMERUS FRACTURE Left 06/09/2023 [place] LAP,CHOLECYSTECTOMY 2009 Disease:Chronic cholecystitis SHOULDER SURGERY Left 06/2023 TOTAL KNEE ARTHROPLASTY 1981 Visit Vitals BP 132/84 Pulse 78 Resp 16 Ht 5' 9 Wt 153 lb 12.8 oz SpO2 98% BMI 22.71 kg/m Smoking Status Every Day BSA 1.84 [...] disc disease at L5-S1 level - HYDROcodone-acetaminophen (Felch) 10-325 MG tablet; Take 2 tablets by [...] at this time. Refill sent to [facility] for [facility] patient. Tobacco dependence Discussed smoking [...] Medication Follow Up. documented in this encounter [facility] 06-14-2025 Telephone encounter Note OARRS reviewed, Rx sent into patient's pharmacy. [facility] 06-14-2025 Miscellaneous Notes OARRS reviewed, Rx sent into patient's pharmacy. OV 03/15/25 RF 12/13/24 Dutch called requesting a refill on hisPHENobarbital (Luminal) [facility] [place] documented in this encounter [facility] 06-14-2025 Telephone encounter Note OV 03/15/25 RF 12/13/24 [facility] 06-14-2025 Telephone encounter Note Dutch called requesting a refill on hisPHENobarbital (Luminal) 32.[facility] [place] 05-26-2025 History of Present illness Narrative Patient: Dutch Monique SR : 1955 PCP: Mitul Richmond MD SUBJECTIVE Patient presents today with a CC of [...] of right eye Chronic cholecystitis 2009 Convulsions ([facility]) Disturbance of skin sensation Enthesopathy of hip region Headache History of degenerative disc disease Hypertension Left supracondylar humerus fracture 06/02/2023 Lesion of ulnar nerve Lumbar radiculopathy Lumbar spondylosis Malaise and fatigue Migraine Neck injury 05/2017 following a fall on railing Pain in limb Presbyopia Pseudophakia of right eye Radiculopathy, lumbosacral region Seizure disorder (HCC) Tremor Type 2 diabetes mellitus ([facility]) Medications: Current Outpatient Medications: acetaminophen (Tylenol Extra Strength) 500 MG tablet, Take 500 mg by mouth every 6 (six) hours if needed for mild pain, Disp: , Rfl: albuterol HFA 90 mcg/act inhaler, Inhale 2 puffs every 4 (four) hours if needed for wheezing, Disp: 18 g, Rfl: 11 ARIPiprazole (Abilify) 2 MG tablet, TAKE 1 TABLET BY MOUTH DAILY, Disp: 90 tablet, Rfl: 11 Sivgrxy-Xyjaxcuhlai-Ujkslrxftv (Breztri Aerosphere) 160-9-4.8 MCG/ACT aerosol, Inhale 2 puffs in the morning and 2 puffs before bedtime., Disp: 10.7 g, Rfl: 5 diphenhydrAMINE (BENADryl) 25 MG capsule, Take 25 mg by mouth at bedtime, Disp: , Rfl: EPINEPHrine (AUVI-Q) 0.15 mg/0.15 mL IJ solution auto-injector injection, Inject 0.3 mL (0.3 mg) into the shoulder, thigh, or buttocks if needed for anaphylaxis, Disp: , Rfl: fluticasone (Flonase) 50 MCG/ACT nasal spray, INSTILL TWO (2) SPRAYS IN EACH NOSTRIL DAILY, Disp: 16 g, Rfl: 10 furosemide (Lasix) 20 MG tablet, Take 20 mg by mouth Daily, Disp: , Rfl: HYDROcodone-acetaminophen (Felch) 10-325 MG tablet, Take 2 tablets by mouth every 6 (six) hours if needed for severe pain for up to 15 days, Disp: 120 tablet, Rfl: 0 lisinopril 20 MG tablet, TAKE 1 TABLET (20MG) BY MOUTH AT NOON BEFORE A MEAL, Disp: 30 tablet, Rfl: 10 meloxicam (Mobic) 7.5 MG tablet, Take 7.5 mg by mouth Daily as needed for mild pain or moderate pain QTY 14 tabs (Patient not taking: Reported on 03/15/2025), Disp: , Rfl: pantoprazole (ProtoNix) 40 MG EC tablet, TAKE 1 TABLET BY MOUTH EVERY MORNING, Disp: 30 tablet, Rfl: 11 PHENobarbital (Luminal) 32.4 MG tablet, TAKE 1 TABLET BY MOUTH THREE TIMES DAILY (IN THE MORNING, IN THE EVENING, and BEFORE bedtime), Disp: 90 tablet, Rfl: 5 phenytoin ER (Dilantin) 100 MG capsule, TAKE ONE (1) CAPSULE BY MOUTH IN THE MORNING, IN THE EVENING, AT BEDTIME, Disp: 90 capsule, Rfl: 10 pregabalin (Lyrica) 150 MG capsule, Take 1 capsule (150 mg) by mouth in the morning and 1 capsule (150 mg) in the evening and 1 capsule (150 mg) before bedtime., Disp: 90 capsule, Rfl: 1 primidone (Mysoline) 50 MG tablet, TAKE 2 TABLETS BY MOUTH IN THE MORNING, TAKE 1 TABLET IN THE AFTERNOON, AND TAKE 2 TABLETS AT BEDTIME, Disp: 150 tablet, Rfl: 1 sildenafil (Viagra) 50 MG tablet, Take 1 tablet (50 mg) by mouth Daily as needed for erectile dysfunction, Disp: 8 tablet, Rfl: 2 simvastatin (Zocor) 40 MG tablet, TAKE 1 TABLET BY MOUTH IN THE MORNING, Disp: 30 tablet, Rfl: 10 tamsulosin (Flomax) 0.4 MG 24 hr capsule, TAKE 1 CAPSULE BY MOUTH EVERY MORNING, Disp: 100 capsule, Rfl: 3 tiZANidine (Zanaflex) 4 MG tablet, TAKE 2 TABLETS BY MOUTH EVERY 8 HOURS NEEDED FOR MUSCLE SPASMS, Disp: 60 tablet, Rfl: 10 venlafaxine XR (Effexor XR) 150 MG 24 hr capsule, TAKE 1 CAPSULE BY MOUTH ONCE DAILY, Disp: 90 capsule, Rfl: 11 venlafaxine XR (Effexor XR) 75 MG 24 hr capsule, Take 1 capsule (75 mg) by mouth Daily, Disp: 100 capsule, Rfl: 3 Social History: Social History Socioeconomic History Marital [...] Social History Narrative Not on file Social Drivers of Health Financial Resource Strain: Not on file Food Insecurity: Unknown (03/10/2024) Received from [facility] Ch[employer]Now (now [employer]) Hunger Screening Within the past 12 months [...] growth with thin shiny atrophic skin bilaterally VASC: Negative DP and negative PT pedal pulses NEURO: 5.07 Hitchita Susannah monofilament test diminished to digits and forefoot bilaterally 125Hz tuning fork diminished to 1st MPJ bilaterally ORTHO: Positive pain on palpation to toenails of the left 1,2,3,4,5 toes and right 1,2,3,4,5 toes Rectus distal right 2nd digit ALEX PVR right ALEX 1.21 TBI 0.85 left 1.20 TBI 0.81 with normal reading per Dr. Villagran report ASSESSMENT 1. Diabetes mellitus due to underlying condition with diabetic polyneuropathy, unspecified whether fci insulin use (HCC) 2. Pain due to onychomycosis of toenails of both feet PLAN Patient to continue with normal shoe [...] Frandy Avitia DPM documented in this encounter [facility] 05-12-2025 Telephone encounter Note OARRS reviewed, Rx sent into patient's pharmacy. [facility] 05-12-2025 Miscellaneous Notes OARRS reviewed, Rx sent into patient's pharmacy. HYDROcodone-acetaminophen Ddm in [place] documented in this encounter [facility] 05-10-2025 Telephone encounter Note HYDROcodone-acetaminophen Ddm in [place] [facility] 03-17-2025 History of Present illness Narrative Patient: Dutch Monique SR : 1955 PCP: Mitul Richmond MD SUBJECTIVE Patient presents today with a CC of [...] disorder (CMS/HCC) Tremor Type 2 diabetes mellitus Medications: Current Outpatient Medications: acetaminophen (Tylenol Extra Strength) 500 MG tablet, Take 500 mg by mouth every 6 (six) hours if needed for mild pain, Disp: , Rfl: albuterol HFA 90 mcg/act inhaler, Inhale 2 puffs every 4 (four) hours if needed for wheezing, Disp: 18 g, Rfl: 11 ARIPiprazole (Abilify) 2 MG tablet, TAKE 1 TABLET BY MOUTH DAILY, Disp: 90 tablet, Rfl: 11 Ywwclta-Nyycnqlhzlw-Obysjzwpyz (Breztri Aerosphere) 160-9-4.8 MCG/ACT aerosol, Inhale 2 puffs in the morning and 2 puffs before bedtime., Disp: 10.7 g, Rfl: 5 diphenhydrAMINE (BENADryl) 25 MG capsule, Take 25 mg by mouth at bedtime, Disp: , Rfl: EPINEPHrine (AUVI-Q) 0.15 mg/0.15 mL IJ solution auto-injector injection, Inject 0.3 mL (0.3 mg) into the shoulder, thigh, or buttocks if needed for anaphylaxis, Disp: , Rfl: fluticasone (Flonase) 50 MCG/ACT nasal spray, INSTILL TWO (2) SPRAYS IN EACH NOSTRIL DAILY, Disp: 16 g, Rfl: 10 furosemide (Lasix) 20 MG tablet, Take 20 mg by mouth Daily, Disp: , Rfl: HYDROcodone-acetaminophen (Felch) 10-325 MG tablet, Take 2 tablets by mouth every 6 (six) hours if needed for severe pain for up to 15 days, Disp: 120 tablet, Rfl: 0 lisinopril 20 MG tablet, TAKE 1 TABLET (20MG) BY MOUTH AT NOON BEFORE A MEAL, Disp: 30 tablet, Rfl: 10 meloxicam (Mobic) 7.5 MG tablet, Take 7.5 mg by mouth Daily as needed for mild pain or moderate pain QTY 14 tabs, Disp: , Rfl: nicotine polacrilex (Commit) 4 MG lozenge, Dissolve 1 lozenge (4 mg) in the mouth every 8 (eight) hours if needed for smoking cessation. (Patient not taking: Reported on 12/13/2024), Disp: 90 lozenge, Rfl: 2 nicotine polacrilex (Nicorette) 4 MG gum, Chew 1 each (4 mg) every 8 (eight) hours if needed for smoking cessation. (Patient not taking: Reported on 12/13/2024), Disp: 90 each, Rfl: 3 pantoprazole (ProtoNix) 40 MG EC tablet, TAKE 1 TABLET BY MOUTH EVERY MORNING, Disp: 30 tablet, Rfl: 11 PHENobarbital (Luminal) 32.4 MG tablet, TAKE 1 TABLET BY MOUTH THREE TIMES DAILY (IN THE MORNING, IN THE EVENING, and BEFORE bedtime), Disp: 90 tablet, Rfl: 5 phenytoin ER (Dilantin) 100 MG capsule, TAKE ONE (1) CAPSULE BY MOUTH IN THE MORNING, IN THE EVENING, AT BEDTIME, Disp: 90 capsule, Rfl: 10 pregabalin (Lyrica) 150 MG capsule, Take 1 capsule (150 mg) by mouth in the morning and 1 capsule (150 mg) in the evening and 1 capsule (150 mg) before bedtime., Disp: 90 capsule, Rfl: 1 primidone (Mysoline) 50 MG tablet, TAKE 2 TABLETS BY MOUTH IN THE MORNING, TAKE 1 TABLET IN THE AFTERNOON, AND TAKE 2 TABLETS AT BEDTIME, Disp: 150 tablet, Rfl: 1 sildenafil (Viagra) 50 MG tablet, Take 1 tablet (50 mg) by mouth Daily as needed for erectile dysfunction, Disp: 8 tablet, Rfl: 2 simvastatin (Zocor) 40 MG tablet, TAKE 1 TABLET BY MOUTH IN THE MORNING, Disp: 30 tablet, Rfl: 10 tamsulosin (Flomax) 0.4 MG 24 hr capsule, TAKE 1 CAPSULE BY MOUTH EVERY MORNING, Disp: 30 capsule, Rfl: 10 tiZANidine (Zanaflex) 4 MG tablet, TAKE 2 TABLETS BY MOUTH EVERY 8 HOURS NEEDED FOR MUSCLE SPASMS, Disp: 60 tablet, Rfl: 10 venlafaxine XR (Effexor XR) 150 MG 24 hr capsule, TAKE 1 CAPSULE BY MOUTH ONCE DAILY, Disp: 90 capsule, Rfl: 11 venlafaxine XR (Effexor XR) 75 MG 24 hr capsule, Take 1 capsule (75 mg) by mouth Daily, Disp: 100 capsule, Rfl: 3 Social History: Social History Socioeconomic History Marital [...] Social History Narrative Not on file Social Drivers of Health Financial Resource Strain: Not on file Food Insecurity: Unknown (03/10/2024) [facility] [employer] (now [employer]) Hunger Screening Within the past 12 months [...] growth with thin shiny atrophic skin bilaterally VASC: Negative DP and negative PT pedal pulses NEURO: 5.07 Hitchita Susannah monofilament test diminished to digits and forefoot bilaterally 125Hz tuning fork diminished to 1st MPJ bilaterally ORTHO: Positive pain on palpation to toenails of the left 1,2,3,4,5 toes and right 1,2,3,4,5 toes Rectus distal right 2nd digit ALEX PVR right ALEX 1.21 TBI 0.85 left 1.20 TBI 0.81 with normal reading per Dr. Villagran report ASSESSMENT 1. Diabetes mellitus due to underlying condition with diabetic polyneuropathy, unspecified whether fci insulin use ([facility]) 2. PVD (peripheral vascular disease) ([facility]) 3. Pain due to onychomycosis of toenails of both feet PLAN Patient to continue with normal shoe [...] Frandy Avitia DPM documented in this encounter [facility] 03-15-2025 History of Present illness Narrative Images from the original note were not included. Subjective Patient ID: Dutch Monique SR is a 69 y.o. male who presents for back pain. Dutch is present today for follow up back pain. He is currently on Hydrocodone as needed and is working well for him. Has fallen three times since his last appointment, all within the last month. States first time once was in the bathtub, missed the chair, an aid helped him up. Second was using the walker to go to the restroom, lost his balance and fell sideways. The third time he stood up straight to put his briefs on, lost his balance, fell sideways onto a stand knocking a few things off of the stand. C/o a lot of wax in the left ear. Would like the ear checked. Feels like it is draining. Current Outpatient Medications on File Prior to [...] TABLET BY MOUTH DAILY 90 tablet 11 Ekqsehf-Oqjccbqwziy-Fwcqrstpsw (Breztri Aerosphere) 160-9-4.8 MCG/ACT aerosol Inhale 2 puffs in the morning and 2 puffs before bedtime. 10.7 g 5 diphenhydrAMINE (BENADryl) 25 MG capsule Take 25 [...] tablet Take 20 mg by mouth Daily HYDROcodone-acetaminophen (Felch) 10-325 MG tablet Take 2 tablets by [...] pain or moderate pain QTY 14 tabs (Patient not taking: Reported on 03/15/2025) pantoprazole (ProtoNix) 40 MG EC tablet TAKE 1 TABLET BY MOUTH EVERY MORNING 30 tablet 11 PHENobarbital (Luminal) 32.4 MG tablet TAKE 1 TABLET BY MOUTH THREE TIMES DAILY (IN THE MORNING, IN THE EVENING, and BEFORE bedtime) 90 tablet 5 phenytoin ER (Dilantin) 100 MG capsule TAKE [...] by mouth Daily 100 capsule 3 [DISCONTINUED] nicotine polacrilex (Commit) 4 MG lozenge Dissolve 1 lozenge (4 mg) in the mouth every 8 (eight) hours if needed for smoking cessation. (Patient not taking: Reported on 12/13/2024) 90 lozenge 2 [DISCONTINUED] nicotine polacrilex (Nicorette) 4 MG gum Chew 1 each (4 mg) every 8 (eight) hours if needed for smoking cessation. (Patient not taking: Reported on 12/13/2024) 90 each 3 No current facility-administered medications on file prior [...] disorder (CMS/HCC) Tremor Type 2 diabetes mellitus Past Surgical History: Procedure Laterality Date BACK SURGERY 1981 GALL BLADDER INTRAOCULAR LENS INSERTION Right 06/2018 KNEE SURGERY Right repair LUMBAR TRANSFORAMINAL EPIDURAL STEROID INJECTION Bilateral 12/26/2020 L4 LUMBAR TRANSFORAMINAL EPIDURAL STEROID INJECTION 12/17/2022 L4 NOSE SURGERY NASAL SURGERY ORIF HUMERUS FRACTURE Left 06/09/2023 [place] LAP,CHOLECYSTECTOMY 2009 Disease:Chronic cholecystitis SHOULDER SURGERY Left 06/2023 TOTAL KNEE ARTHROPLASTY 1981 Visit Vitals BP 118/68 Pulse 72 Resp 16 Ht 5' 9 Wt 159 lb SpO2 97% BMI 23.48 kg/m Smoking Status Every Day BSA 1.87 m Review of Systems Constitutional: Negative for [...] cigarette smoke HENT: Head: Normocephalic and atraumatic. Ears: Comments: Mild cerumen in base of canal on left Eyes: General: No scleral icterus. Cardiovascular: Rate [...] OARRS Report was reviewed for this patient. Other chronic pain See above. Falls frequently - Ambulatory referral to Home Health; Future Today's face to face encounter with the patient was in whole, or in part, for the following medical condition, which is the primary reason for home health care: Frequent falls, Gait instability. My clinical findings support this patient's homebound status (i.e. absences from home require considerable and taxing effort.) The clinical findings that support the need for home care and homebound status are because patient needs the assistance of another person to leave place of residence, impaired mobility, and increased fall risk. It is medially necessary for patient to receive Home Health Services. Order placed for Home Health PT/OT, evaluate and treat. Gait instability - Ambulatory referral to Home Health; Future See above. Localization-related epilepsy (CMS/HCC) Stable on Phenobarbital and Phenytoin. No recent seizures. Will continue to monitor. Reassurance given no ear infection noted on exam today. Follow up in about 3 months (around 06/15/2025) for Medication Follow Up. documented in this encounter [facility] 03-01-2025 Telephone encounter Note Needs resent to [facility], was sent to his mail order pharmacy. [facility] 03-01-2025 Miscellaneous Notes Needs resent to [facility], was sent to his mail order pharmacy. HYDROcodone-acetaminophen (Felch) 10-325 MG tablet [facility] [place] documented in this encounter [facility] 03-01-2025 Telephone encounter Note HYDROcodone-acetaminophen (Felch) 10-325 MG tablet [facility] [place] [facility] 02-28-2025 Telephone encounter Note HYDROcodone-acetaminophen (Felch) 10-325 MG tablet needs resent to [facility] [place] they do not have the script [facility] 02-28-2025 Miscellaneous Notes HYDROcodone-acetaminophen (Felch) 10-325 MG tablet needs resent to [facility] [place] they do not have the script documented in this encounter [facility] 02-23-2025 Telephone encounter Note OARRS reviewed, Rx sent into patient's pharmacy. [facility] 02-23-2025 Miscellaneous Notes OARRS reviewed, Rx sent into patient's pharmacy. Hydrocodone 5-325 [facility] [place] documented in this encounter [facility] 02-23-2025 Telephone encounter Note Hydrocodone 5-325 [facility] [place] [facility] 02-16-2025 History of Present illness Narrative Associated Order(s): Nerve Block Pre-Procedure Diagnose(s): Lumbar radiculopathy; Lumbosacral radiculopathy Post-Procedure Diagnose(s): Lumbar radiculopathy; Lumbosacral radiculopathy Images from the original note were not included. Reason for Appointment: Epidural Patient ID: Dutch Monique SR is a 69 y.o. male who presents for lumbar radiculopathy. Current Medications: has a current medication list which includes the following prescription(s): acetaminophen, albuterol hfa, aripiprazole, breztri aerosphere, diphenhydramine, epinephrine, fluticasone, furosemide, lisinopril, meloxicam, naloxone, nicotine polacrilex, nicotine polacrilex, pantoprazole, phenobarbital, phenytoin er, pregabalin, primidone, sildenafil, simvastatin, tamsulosin, tizanidine, venlafaxine xr, and venlafaxine xr. Vitals: Visit Vitals BP 135/80 (BP Location: Left arm, Patient Position: Sitting, BP Cuff Size: Adult) Pulse 72 Smoking Status Every Day Allergies: Allergies Allergen [...] after the procedure. The patient (or responsible alliance party) was given post-procedure and discharge instructions to follow at home. The patient was discharged in stable condition. A follow-up appointment was made. The patient was instructed to avoid activities that would normally worsen the pain. Pre-procedure pain score: 6 /10 Solderer Electronic: RT Telma(R) kVp: 103 Time (sec): 20 mA: 3.0 Patient ID: Dutch Mnoique SR is a 69 y.o. male. Nerve Block Date/Time: 02/16/2025 12:16 PM Performed by: Alvino Torres DO Authorized by: FRANCO Foy Consent: Consent obtained: Written Consent given by: Patient [place] protocol: Procedure explained and questions answered to patient or proxy's satisfaction: yes Patient identity confirmed: Verbally with patient Location: Body area: Trunk Trunk nerve: Lumbar Procedure details: Guidance: fluoroscopy Steroid injected: Dexamethasone Post-procedure details: Procedure completion: Tolerated documented in this encounter [facility] 02-10-2025 History of Present illness Narrative Images from the original note were not included. No chief complaint on file. Subjective Dutch Monique SR, 69 y.o., male The patient presents today for follow up. He received lumbar EPI injections 10-26-24 and admits >50% reduction in his pain level. Pain is a 4 when he is still and a 7 when moving. He states he is still getting relief from this today but it is starting to wear off. The patient still admits some mild bilateral lower back pain which is constant. She is unable to stand up straight since injection is wearing off. Lyrica is also helpful. The patient admits to continued bilateral lower extremity weakness which has not worsened. His balance has been a little better, admits one near-fall. He continues with exercises from PT but wishes they would have kept in in there longer. He uses a cane or wheelchair for long distances. He denies any saddle anesthesia or loss of bowel or bladder control. He has bilateral hand tremors which have not worsened. These occur primarily with action. He notices his handwriting is still poor. He continues on primidone which he states has been beneficial. He denies any recent seizures or missed doses of meds. Denies further concern today. Will need a refill of Lyrica. Review of Systems Constitutional: Negative for appetite [...] disorder (CMS/HCC) Tremor Type 2 diabetes mellitus Past Surgical History: Procedure Laterality Date BACK SURGERY 1981 GALL BLADDER INTRAOCULAR LENS INSERTION Right 06/2018 KNEE SURGERY Right repair LUMBAR TRANSFORAMINAL EPIDURAL STEROID INJECTION Bilateral 12/26/2020 L4 LUMBAR TRANSFORAMINAL EPIDURAL STEROID INJECTION 12/17/2022 L4 NOSE SURGERY NASAL SURGERY ORIF HUMERUS FRACTURE Left 06/09/2023 [place] LAP,CHOLECYSTECTOMY 2009 Disease:Chronic cholecystitis SHOULDER SURGERY Left [...] [cefaclor], Cymbalta [duloxetine hcl], and Trileptal [oxcarbazepine] There were no vitals filed for this visit. There is no height or weight on file to calculate BMI. Neurologic exam: Mental status: Well nourished, well [...] deltoid, biceps, triceps, wrist extensors, wrist flexor, belt operator strength 5/5. LUE Strength deltoid, biceps, triceps, wrist extensors, wrist flexor, belt operator strength 5/5 (he does have difficulty with [...] LLE knee reflex 1+. Oneill's Sign negative. Gait: Wheelchair, gait not assessed. Does use [...] CT of the head/brain without contrast at [facility] on 09/12/23: no acute hemorrhage. Bifrontal atrophy noted. Moderate present previously. MRI of the lumbar spine without contrast at [place] on 10/01/19: Degenerative changes resulting in bilateral L4/5 and L5/1 foraminal stenosis. EMG of the bilateral lower extremities at [facility] on 11/12/19: Polyneuropathy which is axon loss [...] lesser degrees of changes at other levels. Epidurals continue to provide benefit. PLAN: - Patient has previously been offered neurosurgical opinion but the patient is adamant [...] the patient's radicular symptoms. PLAN: - See above; continue with lumbar epidural injections. Gait instability Chronic gait instability. This is likely multifactorial, related to lumbosacral radiculopathy, polyneuropathy, and generalized deconditioning. He did have a recent fall. PLAN: - Plan as above - I counseled the patient on fall precautions. I discussed the high risk of trauma and debility associated with falls. Patient verbalized understanding. - I encouraged regular use of a [...] am, 1 tablet in the afternoon, and 1 tablet at bedtime. 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 The patient understands that the combination of pain medication, neuropathic medication, and seizure medication has substantial MANAGER OF MAINTENANCE depressive effects and could be life threatening. The patient is adamant about the need to continue his current regimen without change and accepts these risks. Follow up after epidural injection or sooner if symptoms worsen, fail to improve, or should a new neurological concern arise. Pt has been fully educated on their diagnosis, treatment options, follow up plan, and return instructions Melissa Goldberg PA-C HPI documented in this encounter [facility] 01-27-2025 Telephone encounter Note OARRS reviewed, Rx sent into patient's pharmacy. [facility] 01-27-2025 Miscellaneous Notes OARRS reviewed, Rx sent into patient's pharmacy. HYDROcodone-acetaminophen (Felch) 10-325 MG tablet [facility] [place] documented in this encounter [facility] 01-27-2025 Telephone encounter Note HYDROcodone-acetaminophen (Felch) 10-325 MG tablet [facility] to [facility] [place] [facility] 01-26-2025 Telephone encounter Note OARRS Reviewed due 01/28/2025 [facility] 01-26-2025 Miscellaneous Notes OARRS Reviewed due 01/28/2025 Patient left message requesting refill of Lyrica 150mg TID sent to [facility] in [place]. (Continue Lyrica 150 mg PO TID ... Per Maximo Nguyen on 09/28/24) documented in this encounter [facility] 01-24-2025 Telephone encounter Note Patient left message requesting refill of Lyrica 150mg TID sent to [facility] in [place]. (Continue Lyrica 150 mg PO TID ... Per Maximo Nguyen on 09/28/24) [facility] 01-24-2025 Telephone encounter Note Hydrocodone [facility] [place] [facility] 01-24-2025 Miscellaneous Notes Hydrocodone [facility] [place] documented in this encounter [facility] 01-13-2025 History of Present illness Narrative Images from the original note were not included. Subjective Patient ID: Dutch Monique SR is a 69 y.o. male who presents for [facility] ER follow up. Flowsheet Row Patient Outreach from 01/07/2025 in [facility] with Venita Rosas RN Hospital Information ED, Hospital or Jail Facility Discharge? ED Patient has been contacted within 2 days of being seen in the ED Yes Diagnosis Contusion of Knee, left Discharge Date 01/06/25 Discharged To: Home Setting Discharge Hospital [facility] Engagement Call Start Time 1456 Admission Date 01/06/25 Medications Discharge medications reviewed and reconciled from hospital? Yes [New Rx Meloxicam 7.5 mg PO daily prn (14 tabs)] Does the patient have all medications ordered at discharge? No [son is picking up the medication today] Is the patient taking all medications as directed (includes completed medication regime)? Yes [meds are set up, pt will start Meloxicam when received.] Nursing Interventions Nurse provided patient education Appointments Does the patient have a primary care provider? Yes [01/13 at 2:30 pm] Nursing Interventions Verified appointment date/time/provider Does the patient have any upcoming specialty appointments? Yes Self Management Does patient have home health? yes What is the home health agency? Nurse/aide from [facility] through [facility] Patient Teaching Does the patient have access to their discharge instructions? Yes Nursing Interventions Reviewed instructions with patient What is the patient's perception of their health status since discharge? Same Is the patient/caregiver able to teach back the hierarchy of who to call/visit for symptoms/problems? PCP, Specialist, Home Health nurse, Urgent Care, ED, 911 Yes Wrap Up Is the patient/caregiver familiar with Advance Care Planning? Yes Would the patient like more information on Advance Care Planning? Yes [will be meeting with SW] Wrap Up Additional Comments Pt presented to ER after a fall in the home. NO LOC. Pt reports he is about the same, has diane wrap on left leg, told to remove on . Discussed to monitor that the bandage is not tight. Pt is walking with Walker. Test: XRay left knee. ER was to refer pt to Ortho. Call End Time 15101/13/2025 His leg is feeling better and he is walking around the house with a walker now so it will help him not fall. Has been keeping it elevated, icing prn. Current Outpatient Medications on File Prior to [...] mg) by mouth Daily 100 tablet 3 Qjrdlpu-Ovcjaqxdafz-Rudjhbrsqv (Breztri Aerosphere) 160-9-4.8 MCG/ACT aerosol Inhale 2 puffs in the morning and 2 puffs before bedtime. 10.7 g 5 diphenhydrAMINE (BENADryl) 25 MG capsule Take 25 [...] 20 mg by mouth Daily [] HYDROcodone-acetaminophen (Felch) 10-325 MG tablet Take 2 tablets by [...] pain or moderate pain QTY 14 tabs naloxone (Narcan) 4 mg/0.1 mL nasal spray [...] 5 phenytoin ER (Dilantin) 100 MG capsule TAKE ONE (1) CAPSULE BY MOUTH IN THE MORNING, IN THE EVENING, AT BEDTIME 90 capsule 10 pregabalin (Lyrica) 150 MG capsule Take 1 capsule (150 mg) by mouth in the morning and 1 capsule (150 mg) in the evening and 1 capsule (150 mg) before bedtime. 90 capsule 0 primidone (Mysoline) 50 MG tablet TAKE 2 [...] by mouth Daily 100 capsule 3 [DISCONTINUED] fluticasone (Flonase) 50 MCG/ACT nasal spray INSTILL TWO (2) SPRAYS IN EACH NOSTRIL DAILY 16 g 10 [DISCONTINUED] fluticasone (Flonase) 50 MCG/ACT nasal spray INSTILL TWO (2) SPRAYS IN EACH NOSTRIL DAILY 16 g 10 [DISCONTINUED] fluticasone (Flonase) 50 MCG/ACT nasal spray INSTILL TWO (2) SPRAYS IN EACH NOSTRIL DAILY 16 g 10 No current facility-administered medications on file prior [...] NASAL SURGERY ORIF HUMERUS FRACTURE Left 06/09/2023 [place] LAP,CHOLECYSTECTOMY 2009 Disease:Chronic cholecystitis SHOULDER SURGERY Left 06/2023 TOTAL KNEE ARTHROPLASTY 1981 Visit Vitals BP 128/66 Pulse 72 Resp 16 Ht 5' 9 Wt 146 lb 6.4 oz SpO2 97% BMI 21.62 kg/m Smoking Status Every Day BSA 1.8 m Review of Systems Constitutional: Negative for chills, fatigue and fever. Respiratory: Negative for cough, shortness of breath and wheezing. Cardiovascular: Negative for chest pain, palpitations and leg swelling. Gastrointestinal: Negative for abdominal pain, constipation, diarrhea, nausea and vomiting. Musculoskeletal: Positive for arthralgias and gait problem. Skin: Negative for rash. [...] present. No wheezing, rhonchi or rales. Musculoskeletal: Left knee: Effusion (Mild) present. No bony tenderness. Normal range of motion. No tenderness. Skin: General: Skin is warm and dry. Neurological: General: No focal deficit present. Mental Status: He is alert and oriented to person, place, and time. Gait: Gait abnormal. Comments: Using wheelchair Psychiatric: Mood and Affect: Mood normal. Behavior: Behavior normal. Assessment/Plan Diagnoses and all orders for this visit: Contusion of left knee, subsequent encounter The patient was seen today in follow up of recent hospital ER visit. All available hospital records/labs/diagnostics were reviewed and discussed with the patient. ER discharge meds were reviewed. He can continue to keep knee elevated as needed. Ice prn, not directly on skin. Contact office if does not continue to gradually improve over the next week. Primary hypertension ([facility]) Patient's blood pressure is currently well controlled. Continue with current medications and I will continue to monitor. Goal BP remains less than 130/80. Abnormal gait Continue to use assistive devices as needed. Using a walker in the home. Falls frequently No falls since ER visit. Degenerative disc disease at L5-S1 level Medication [...] OARRS Report was reviewed for this patient. Other chronic pain Pain Management agreement reviewed with patient and signed by both patient and provider. A copy of the signed agreement was offered to the patient. Reviewed the potential risks of opioid therapy including potential for MANAGER OF MAINTENANCE s/e, GI s/e, respiratory s/e, dermatologic s/e, and urinary s/e, in addition to potential for allergic reaction, tolerance of the medication, dependence on the medication, potential for withdrawal with abrupt cessation, and potential for addiction. Also reviewed patient responsibilities regarding opioid therapy, and reasons why medication may need to be discontinued. See Chronic Opioid Therapy Agreement document for complete details. Follow up for Appointment As Scheduled. documented in this encounter [facility] 12-22-2024 Telephone encounter Note OARRS reviewed, Rx sent into patient's pharmacy. [facility] 12-22-2024 Miscellaneous Notes OARRS reviewed, Rx sent [...] pain from it documented in this encounter [facility] 12-22-2024 Telephone encounter Note [facility] [place] [facility] 12-20-2024 Telephone encounter Note OARRs reviewed. Rx sent. [facility] 12-20-2024 Miscellaneous Notes OARRs reviewed. Rx sent. The pt calls in and requests refill of Lyrica. Oarrs reviewed DUE NOW documented in this encounter [facility] 12-20-2024 Telephone encounter Note The pt calls in and requests refill of Lyrica. Oarrs reviewed DUE NOW [facility] 12-20-2024 Telephone encounter Note Home health nurse states that he has been failing a lot. (Twice Friday), pt stated to the nurse that he has been losing his balance a lot lately. Pt went down on his butt both times. No bruising was seen by the nurse and he was in no pain from it [facility] 12-14-2024 History of Present illness Narrative Images [...] 20 mg by mouth Daily [] HYDROcodone-acetaminophen (Felch) 10-325 MG tablet Take 2 tablets by [...] NASAL SURGERY ORIF HUMERUS FRACTURE Left 06/09/2023 [place] LAP,CHOLECYSTECTOMY 2008 Disease:Chronic cholecystitis SHOULDER SURGERY Left [...] for this patient. Panlobular emphysema (CMS/HCC) - Xfeceby-Pslddhhipxa-Vjdznmgmyt (Breztri Aerosphere) 160-9-4.8 MCG/ACT aerosol; Inhale 2 [...] than 130/80. Simple chronic bronchitis (CMS/HCC) - Kajkvhu-Oxsoxmjqevl-Cspaobgayl (Breztri Aerosphere) 160-9-4.8 MCG/ACT aerosol; Inhale 2 [...] Medication Follow Up. documented in this encounter [facility] 12-13-2024 Telephone encounter Note Rx was sent. [facility] 12-13-2024 Miscellaneous Notes Rx was sent. PHENobarbital (Luminal) 32.4 MG tablet to [facility] [place] documented in this encounter [facility] 12-13-2024 Telephone encounter Note PHENobarbital (Luminal) 32.4 MG tablet to [facility] [place] [facility] 11-25-2024 Telephone encounter Note HYDROcodone-acetaminophen (Felch) 10-325 MG tablet to [facility] [place] [facility] 11-25-2024 Miscellaneous Notes HYDROcodone-acetaminophen (Felch) 10-325 MG [facility] to [facility] [place] documented in this encounter [facility] 10-27-2024 Telephone encounter Note Resent. [facility] 10-27-2024 Miscellaneous Notes Resent. Pt states was sent to [facility] they are currently out of stock pt is requesting rx be sent to [facility] [place] instead documented in this encounter [facility] 10-27-2024 Telephone encounter Note Pt states was sent to his mail order [facility]) they are currently out of stock pt is requesting rx be sent to [facility] [place] instead [facility] 10-27-2024 Telephone encounter Note Rx sent. [facility] 10-27-2024 Miscellaneous Notes Rx sent. PHENobarbital (Luminal) 32.4 MG tablet to [facility] [place] documented in this encounter [facility] 10-26-2024 Telephone encounter Note PHENobarbital (Luminal) 32.4 MG tablet to [facility] [place] [facility] 10-26-2024 History of Present illness Narrative Images [...] after the procedure. The patient (or responsible alliance party) was given post-procedure and discharge instructions to follow at home. The patient was discharged in stable condition. A follow-up appointment was made. The patient was instructed to avoid activities that would normally worsen the pain. Pre-procedure pain score: 5 /10 Solderer Electronic: RT Telma(Najma) kVp: 103 Time (sec): 21 mA: 3.0 documented in this encounter [facility] 10-26-2024 Telephone encounter Note OARRS reviewed, Rx sent into patient's pharmacy. [facility] 10-26-2024 Miscellaneous Notes OARRS reviewed, Rx sent into patient's pharmacy. Hydrocodone 10 [address] [facility] [place] documented in this encounter [facility] 10-25-2024 Telephone encounter Note Hydrocodone 10 [address] [facility] [place] [facility] 10-19-2024 Telephone encounter Note HYDROcodone-acetaminophen (Felch) 10-325 MG tablet to [facility] [place] [facility] 10-19-2024 Miscellaneous Notes HYDROcodone-acetaminophen (Felch) 10-325 MG tablet to [facility] [place] documented in this encounter [facility] 09-28-2024 Telephone encounter Note Refill sent. [facility] 09-28-2024 Miscellaneous Notes Refill sent. PHENobarbital (Luminal) 32.4 MG tablet [facility] in [place] documented in this encounter [facility] 09-28-2024 History of Present illness Narrative Images from the original note were not included. Chief Complaint Patient presents with Back Pain Tremors Seizures Gait Problem Polyneuropathy Subjective Dutch Monique SR, 69 y.o., male The patient presents today [...] NASAL SURGERY ORIF HUMERUS FRACTURE Left 06/09/2023 [place] LAP,CHOLECYSTECTOMY 2008 Disease:Chronic cholecystitis SHOULDER SURGERY Left 06/2023 TOTAL KNEE ARTHROPLASTY 1980 Family History Problem Relation Name Age of [...] deltoid, biceps, triceps, wrist extensors, wrist flexor, belt operator strength 5/5. LUE Strength deltoid, biceps, triceps, wrist extensors, wrist flexor, belt operator strength 5/5 (he does have difficulty with [...] knee reflex 1+. Oneill's Sign negative. Coordination: Xmjhup-nt-kwcb testing is normal Rapid alternating movements are [...] CT of the head/brain without contrast at [facility] on 09/12/23: no acute hemorrhage. Bifrontal atrophy noted. Moderate present previously. MRI of the lumbar spine without contrast at [place] on 10/01/19: Degenerative changes resulting in bilateral L4/5 and L5/1 foraminal stenosis. EMG of the bilateral lower extremities at [facility] on 11/12/19: Polyneuropathy which is axon loss [...] further increases due to multiple medications with MANAGER OF MAINTENANCE depressive effects) - I would avoid propranolol [...] skin checks of the feet. Seizure disorder ([facility]) The patient reports a history [...] in regards to risks versus benefits of master barber use of his medications. The patient understands that the combination of pain medication, neuropathic medication, and seizure medication has substantial MANAGER OF MAINTENANCE depressive effects and could be life threatening. [...] return instructions HPI documented in this encounter [facility] 09-28-2024 Telephone encounter Note PHENobarbital (Luminal) 32.4 MG tablet [facility] in [place] [facility] 09-22-2024 Telephone encounter Note OARRS reviewed, Rx sent into patient's pharmacy. [facility] 09-22-2024 Miscellaneous Notes OARRS reviewed, Rx sent into patient's pharmacy. documented in this encounter [facility] 09-20-2024 Telephone encounter Note The patient has been without his medication since 09/13/2024. Notes that his last rx was sent for qty of 78 and then we had to send him an rx for 12 to get him to his refill date. But no new rx was sent. Pt request to be sent to [facility]. Oarrs reviewed due now [facility] 09-20-2024 Miscellaneous Notes The patient has been without his medication since 09/13/2024. Notes that his last rx was sent for qty of 78 and then we had to send him an rx for 12 to get him to his refill date. But no new rx was sent. Pt request to be sent to [facility]. Oarrs reviewed due now documented in this encounter [facility] 08-31-2024 History of Present illness Narrative Images [...] Do you have a medical power of contracts attorney?: No Current Outpatient Medications on File [...] mg by mouth in the morning. HYDROcodone-acetaminophen (Felch) 10-325 MG tablet Take 2 tablets by [...] mouth Daily 100 capsule 3 [DISCONTINUED] HYDROcodone-acetaminophen (Felch) 10-325 MG tablet Take 2 tablets by [...] NASAL SURGERY ORIF HUMERUS FRACTURE Left 06/09/2023 [place] LAP,CHOLECYSTECTOMY 2008 Disease:Chronic cholecystitis SHOULDER SURGERY Left [...] a living will and durable power of contracts attorney for healthcare. We discussed telling [place]ice people about their advance directives such as close family members, and requested a copy to scan into the patient's EHR. An advance directive packet was offered to the patient. 3. Encounter for immunization Provided pt with a Flu shot today. He tolerated this well. - Influenza, high-dose seasonal, quadrivalent, PF ([id number]) (Fluzone High Dose [facility] 0.7mL dose) 4. Diabetic peripheral neuropathy associated with type 2 diabetes mellitus ([facility]) Hemoglobin A1c on 05/25/2024 was 4.9. Will continue to monitor with routine labs. 5. Essential tremor The patient is seeing a medical apparatus model maker for this condition, treatment is deferred to that specialist. Correspondence from that specialist and any available testing were reviewed during today's visit. 6. Localization-related epilepsy ([facility]) The patient is seeing a medical apparatus model maker for this condition, treatment is deferred to that specialist. Correspondence from that specialist and any available testing were reviewed during today's visit. 7. Lumbar radiculopathy The patient is seeing a medical apparatus model maker for this condition, treatment is deferred to that specialist. Correspondence from that specialist and any available testing were reviewed during today's visit. 8. Lumbosacral neuritis The patient is seeing a medical apparatus model maker for this condition, treatment is deferred to that specialist. Correspondence from that specialist and any available testing were reviewed during today's visit. 9. Lumbosacral radiculopathy The patient is seeing a medical apparatus model maker for this condition, treatment is deferred to that specialist. Correspondence from that specialist and any available testing were reviewed during today's visit. 10. Polyneuropathy The patient is seeing a medical apparatus model maker for this condition, treatment is deferred to that specialist. Correspondence from that specialist and any available testing were reviewed during today's visit. 11. Right lumbar radiculopathy The patient is seeing a medical apparatus model maker for this condition, treatment is deferred to that specialist. Correspondence from that specialist and any available testing were reviewed during today's visit. 12. Seizure disorder (CMS/HCC) The patient is seeing a medical apparatus model maker for this condition, treatment is deferred to that specialist. Correspondence from that specialist and any available testing were reviewed during today's visit. 13. Panlobular emphysema (CMS/HCC) This is a chronic medical condition that is stable since last assessment. No changes in treatment are suggested at this time. 14. Hiatal hernia This is a chronic medical condition that is stable since last assessment. No changes in treatment are suggested at this time. 15. Simple chronic bronchitis (CMS/HCC) This is a chronic medical condition that is stable since last assessment. No changes in treatment are suggested at this time. 16. Hemorrhoids, external This is a chronic medical condition that is stable since last assessment. No changes in treatment are suggested at this time. 17. Primary hypertension (CMS/HCC) Patient's blood pressure is [...] pain The patient is seeing a medical apparatus model maker for this condition, treatment is deferred to that specialist. Correspondence from that specialist and any available testing were reviewed during today's visit. 22. Degenerative disc disease at L5-S1 level The patient is seeing a medical apparatus model maker for this condition, treatment is deferred to that specialist. Correspondence from that specialist and any available testing were reviewed during today's visit. 23. Hand eczema This is a chronic medical condition that is stable since last assessment. No changes in treatment are suggested at this time. 24. Lumbar spondylosis The patient is seeing a medical apparatus model maker for this condition, treatment is deferred to [...] gait The patient is seeing a medical apparatus model maker for this condition, treatment is deferred to that specialist. Correspondence from that specialist and any available testing were reviewed during today's visit. 30. Balance disorder The patient is seeing a medical apparatus model maker for this condition, treatment is deferred to that specialist. Correspondence from that specialist and any available testing were reviewed during today's visit. 31. Depressive disorder (CMS/HCC) This is a chronic medical condition that is stable since last assessment. No changes in treatment are suggested at this time. 32. Falls frequently The patient is seeing a medical apparatus model maker for this condition, treatment is deferred to that specialist. Correspondence from that specialist and any available testing were reviewed during today's visit. 33. Gait instability The patient is seeing a medical apparatus model maker for this condition, treatment is deferred to [...] Tremor The patient is seeing a medical apparatus model maker for this condition, treatment is deferred to that specialist. Correspondence from that specialist and any available testing were reviewed during today's visit. 39. Visual impairment This is a chronic medical condition that is stable since last assessment. No changes in treatment are suggested at this time. Follow up in about 3 months (around 12/01/2024) for Medication Follow Up. [place] [facility] documented in this encounter [facility] 08-23-2024 Telephone encounter Note This was filled on 08/20/24 [facility] 08-23-2024 Miscellaneous Notes This was filled on 08/20/24 documented in this encounter [facility] 08-16-2024 Telephone encounter Note OARRs reviewed. Rx sent. [facility] 08-16-2024 Miscellaneous Notes OARRs reviewed. Rx sent. Oarrs reviewed 9.30 for pregabalin 150 mg, [facility] documented in this encounter [facility] 08-16-2024 Telephone encounter Note Oarrs reviewed 9.30 for pregabalin 150 mg, [facility] 08-03-2024 History of Present illness Narrative Images [...] after the procedure. The patient (or responsible alliance party) was given post-procedure and discharge instructions to follow at home. The patient was discharged in stable condition. A follow-up appointment was made. The patient was instructed to avoid activities that would normally worsen the pain. Pre-procedure pain score: 6 /10 Solderer Electronic: RT Telma(R) kVp: 103 Time (sec): 21 mA: 3.0 documented in this encounter [place] [id number] Telephone encounter Note OARRS reviewed, Rx sent into patient's pharmacy. Resent to DM [facility] 07-28-2024 Miscellaneous Notes OARRS reviewed, Rx sent into patient's pharmacy. Resent to DM documented in this encounter [facility] 07-26-2024 Miscellaneous Notes Meds sent documented in this encounter [facility] 07-26-2024 Telephone encounter Note Meds sent [facility] 07-08-2024 History of Present illness Narrative Patient: Dutch Monique Sr. : 1955 PCP: No primary care provider [...] radiculopathy Lumbar spondylosis Malaise and fatigue Migraine ([facility]) Neck injury 05/2017 following a fall on railing Pain in limb Presbyopia Pseudophakia of right eye Radiculopathy, lumbosacral region Seizure disorder (CMS/HCC) Tremor Type 2 diabetes mellitus ([facility]) Medications: Current Outpatient Medications: PHENobarbital [...] day, Disp: 200 each, Rfl: 3 HYDROcodone-acetaminophen (Felch) 10-325 MG tablet, Take 2 tablets by [...] file Food Insecurity: Unknown (03/10/2024) [facility] Hunger Screening Within the past 12 months [...] and negative PT pedal pulses NEURO: 5.07 Hitchita Susannah monofilament test diminished to digits and forefoot bilaterally 125Hz tuning fork diminished to 1st MPJ bilaterally ORTHO: Positive pain on palpation to nails 1 through 10 Rectus distal right 2nd digit ALEX PVR right ALEX 1.21 TBI 0.85 left 1.20 TBI 0.81 with normal reading per Dr. Villagran report ASSESSMENT 1. Diabetes mellitus due to underlying condition with diabetic polyneuropathy, unspecified whether fci insulin use ([facility]) 2. Onychomycosis 3. Toe pain, [...] Frandy Avitia DPM documented in this encounter [facility] 07-07-2024 History of Present illness Narrative Images [...] NASAL SURGERY ORIF HUMERUS FRACTURE Left 06/09/2023 [place] LAP,CHOLECYSTECTOMY 2009 Disease:Chronic cholecystitis SHOULDER SURGERY Left [...] deltoid, biceps, triceps, wrist extensors, wrist flexor, belt operator strength 5/5. LUE Strength deltoid, biceps, triceps, wrist extensors, wrist flexor, belt operator strength 5/5 (he does have difficulty with [...] knee reflex 1+. Oneill's Sign negative. Coordination: [id number] testing is normal Rapid alternating movements are normal Gait: Wheelchair, gait not assessed. Does use a cane at home. Review and summary of old records: CT of the head/brain without contrast at [facility] on 09/12/23: no acute hemorrhage. Bifrontal atrophy noted. Moderate present previously. MRI of the lumbar spine without contrast at [place] on 10/01/19: Degenerative changes resulting in bilateral L4/5 and L5/1 foraminal stenosis. 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 The patient understands that the combination of pain medication, neuropathic medication, and seizure medication has substantial MANAGER OF MAINTENANCE depressive effects and could be life threatening. [...] and return instructions documented in this encounter [facility] 07-05-2024 Telephone encounter Note Tizanidine sent. [facility] 07-05-2024 Miscellaneous Notes Tizanidine sent. documented in this encounter [facility] 06-29-2024 Telephone encounter Note OARRs reviewed. Rx sent [facility] 06-29-2024 Miscellaneous Notes OARRs reviewed. Rx sent documented in this encounter [facility] 06-24-2024 Telephone encounter Note OARRS reviewed, Rx sent into patient's pharmacy. [facility] 06-24-2024 Miscellaneous Notes OARRS reviewed, Rx sent into patient's pharmacy. documented in this encounter [facility] 03-10-2024 History of Present illness Narrative Images from the original note were not included. [facility] [address] [facility] [id number] CONSULT NOTE CHIEF COMPLAINT Chief Complaint Patient presents with GI Bleeding GI bleed, rectal prolapse, [facility] ER 02/29/24 Dutch Monique Sr. is a 68 y.o. male who presents with complaints of rectal bleeding and prolapse for which he went to the [facility] by squad on February 29, 2000. [...] blood work reviewed by me from the [facility] from February 29, 2024. MEDICATION Current [...] patient/family/caregiver Referring and communicating with other health career development director Rectal bleeding [K62.5] Marizol Hightower DO This note was created with the assistance of a speech recognition program. While intending to generate a timely document that accurately reflects the content of the visit, no guarantee can be provided that every grammatical or spelling mistake has been or will be identified or corrected. Thank you for your understanding. documented in this encounter [facility] 03-10-2024 Instructions Marizol Hightower DO - 03/10/2024 1:15 PM EDT Are You Ready To Kick The Habit? Free Tobacco Cessation Resources [facility] Services [facility] provide all employees with free tobacco cessation services that include: Counseling to understand nicotine addiction Education about medications that can help you successfully quit Assistance with developing a plan to quit Call to set up an individual appointment or find out when group classes will be held: [facility]: [phone] [facility]: [phone] [facility]: [phone] [facility]: [phone] Quit Smoking Action Plan and Resources [facility] [place] offers an eight-week, online smoking cessation plan to all [facility] employees, regardless of whether [place] is your medical insurance provider. Go to www.[place] [employer].[email or web address]/employeewelln ess and click the Health Risk Assessment and Resources link to get started. In the Tpubt6Awlezy menu, click Action Plans instead of Health Risk Assessment to access the Quit Smoking Action Plan. Additional smoking cessation resources are also available to all [facility] employees on the Wsvhb5Jpgljh web page at www.Script[employer] Games/quits javier. [place] Tobacco Cessation Program If [employer] is your medical insurance provider, there are more free resources available to you, including: No copays or deductibles on local tobacco cessation counseling services to help you quit Prescription assistance for tobacco cessation medications to help you quit For details about the tobacco cessation program available to [employer] members, go to www.ScriptPad.com (Search: Tobacco Cessation Program). [place] Tobacco Quit Line 9-532-NMHZ-NOW ( ) is a toll-free, telephonic service that helps [place] residents quit smoking and using tobacco. It is staffed by experts who tailor a quit plan for you and provide you with advice. [place] Tobacco Quit Line 3-849-VRAH-NOW ( ) is a toll-free, telephonic service that helps [place] residents quit smoking and using tobacco. It is staffed by experts who tailor a quit plan for you and provide you with advice. Two weeks of nicotine replacement therapy may be provided at no charge, if needed. Additional Resources These national organizations also offer free information and resources to help you quit tobacco: [place] [employer]--www.cancer.org/healthy/s tayawayfromtobacco [place] [employer]--www.heart.org (Search: Quit Smoking) Centers for Disease Control and Prevention--www.cdc.gov/tobacco [place] [employer]--www.lungusa.org documented in this encounter [facility] Evaluation note Diagnosis Depressive disorder (CMS/HCC) [...] neuropathy associated with type 2 diabetes mellitus ([facility]) Essential tremor Localization-related epilepsy ([facility]) Localization-related (focal) (partial) epilepsy and epileptic syndromes with simple partial seizures, without mention of intractable epilepsy Lumbar radiculopathy Thoracic or lumbosacral neuritis or radiculitis, unspecified Lumbosacral neuritis Thoracic or lumbosacral neuritis or radiculitis, unspecified Lumbosacral radiculopathy Thoracic or lumbosacral neuritis or radiculitis, unspecified Polyneuropathy Unspecified hereditary and idiopathic peripheral neuropathy Right lumbar radiculopathy Thoracic or lumbosacral neuritis or radiculitis, unspecified Seizure disorder ([facility]) Unspecified epilepsy without mention of intractable epilepsy Panlobular emphysema ([facility]) Other emphysema Hiatal hernia Diaphragmatic hernia without mention of obstruction or gangrene Simple chronic bronchitis ([facility]) Simple chronic bronchitis Hemorrhoids, external External hemorrhoids without mention of complication Primary hypertension ([facility]) Unspecified essential hypertension Gastro-esophageal reflux [...] Abnormality of gait Balance disorder Depressive disorder ([facility]CC) Depressive disorder, not elsewhere classified Falls frequently Personal history of fall Gait instability Abnormality of gait Hyponatremia Hyposmolality and/or hyponatremia Migraine without aura and without status migrainosus, not intractable (CMS/HCC) Mixed hyperlipidemia ([facility]) Mixed hyperlipidemia Tobacco dependence due to cigarettes Tremor Abnormal involuntary movements Visual impairment Unspecified visual loss [facility] Diagnosis Degenerative disc disease at L5-S1 level Diabetes mellitus due to underlying condition with diabetic polyneuropathy, unspecified whether master barber insulin use ([facility])- Primary Onychomycosis Dermatophytosis of nail Toe pain, left Pain in soft tissues of limb Toe pain, right Pain in soft tissues of limb PVD (peripheral vascular disease) ([facility]) Unspecified peripheral vascular disease [facility] Diagnosis Right lumbar radiculopathy Thoracic or lumbosacral neuritis or radiculitis, unspecified Diabetes mellitus due to underlying condition with diabetic polyneuropathy, unspecified whether master barber insulin use ([facility])- Primary Onychomycosis Dermatophytosis of nail Toe pain, bilateral [facility] Diagnosis Degenerative disc disease at L5-S1 level Diabetes mellitus due to underlying condition with diabetic polyneuropathy, unspecified whether master barber insulin use ([facility])- Primary Onychomycosis Dermatophytosis of nail Toe pain, bilateral [facility]* Diagnosis Lumbar radiculopathy- Primary Thoracic or lumbosacral neuritis or radiculitis, unspecified Essential tremor DDD (degenerative disc disease), lumbar Degeneration of lumbar or lumbosacral intervertebral disc Polyneuropathy Unspecified hereditary and idiopathic peripheral neuropathy Gait instability Abnormality of gait Seizure disorder ([facility]) Unspecified epilepsy without mention of intractable epilepsy Polypharmacy Issue of repeat prescriptions Degenerative disc disease at L5-S1 level Diabetes mellitus due to underlying condition with diabetic polyneuropathy, unspecified whether master barber insulin use ([facility])- Primary Onychomycosis Dermatophytosis of nail Toe pain, bilateral [facility] Diagnosis Lumbar radiculopathy- Primary Thoracic or lumbosacral neuritis or radiculitis, unspecified Essential tremor Gait instability Abnormality of gait Polypharmacy Issue of repeat prescriptions Seizure disorder ([facility]) Unspecified epilepsy without mention of intractable epilepsy [facility] Diagnosis Localization-related epilepsy ([facility]) Localization-related (focal) (partial) epilepsy and epileptic syndromes with simple partial seizures, without mention of intractable epilepsy [facility] Diagnosis Localization-related epilepsy ([facility]) Localization-related (focal) (partial) epilepsy and epileptic syndromes with simple partial seizures, without mention of intractable epilepsy [facility] Diagnosis Degenerative disc disease at L5-S1 level [facility]* Diagnosis Diabetes mellitus due to underlying condition with diabetic polyneuropathy, unspecified whether master barber insulin use ([facility])- Primary Onychomycosis Dermatophytosis of nail [...] Hemorrhage of rectum and anus Other emphysema ([facility]) Other emphysema Tobacco abuse Tobacco use disorder [facility] Diagnosis Localization-related epilepsy (CMS/HCC) Localization-related (focal) (partial) epilepsy and epileptic syndromes with simple partial seizures, without mention of intractable epilepsy [facility] Diagnosis Degenerative disc disease at L5-S1 level- Primary Panlobular emphysema (CMS/HCC) Other emphysema Primary hypertension ([facility]) Unspecified essential hypertension Simple chronic bronchitis ([facility]) Simple chronic bronchitis Tobacco dependence Tobacco use disorder [facility] Diagnosis Degenerative disc disease at L5-S1 level [facility]* Diagnosis Contusion of left knee, subsequent encounter- Primary Primary hypertension ([facility]) Unspecified essential hypertension Abnormal gait Abnormality of gait Falls frequently Personal history of fall Degenerative disc disease at L5-S1 level Other chronic pain [facility] Diagnosis Degenerative disc disease at L5-S1 level [facility]* Diagnosis Degenerative disc disease at L5-S1 level [facility]* Diagnosis Degenerative disc disease at L5-S1 level [facility]* Diagnosis Lumbar radiculopathy- Primary Thoracic or lumbosacral neuritis or radiculitis, unspecified Degenerative disc disease at L5-S1 level Gait instability Abnormality of gait Essential tremor Polypharmacy Issue of repeat prescriptions Seizure disorder ([facility]) Unspecified epilepsy without mention of intractable epilepsy Polyneuropathy Unspecified hereditary and idiopathic peripheral neuropathy [facility] Diagnosis Lumbar radiculopathy- Primary Thoracic or lumbosacral neuritis or radiculitis, unspecified Lumbosacral radiculopathy Thoracic or lumbosacral neuritis or radiculitis, unspecified Diabetes mellitus due to underlying condition with diabetic polyneuropathy, unspecified whether fci insulin use ([facility])- Primary Pain due to onychomycosis of toenails of both feet [facility] Diagnosis Lumbar radiculopathy Thoracic or lumbosacral neuritis or radiculitis, unspecified Degenerative disc disease at L5-S1 level [facility]* Diagnosis Degenerative disc disease at L5-S1 level [facility]* Diagnosis Degenerative disc disease at L5-S1 level [facility]* Diagnosis Degenerative disc disease at L5-S1 level- Primary Other chronic pain Falls frequently Personal history of fall Gait instability Abnormality of gait Localization-related epilepsy ([facility]) Localization-related (focal) (partial) epilepsy and epileptic syndromes with simple partial seizures, without mention of intractable epilepsy Diabetes mellitus due to underlying condition with diabetic polyneuropathy, unspecified whether fci insulin use ([facility])- Primary PVD (peripheral vascular disease) ([facility]) Unspecified peripheral vascular disease Pain due to onychomycosis of toenails of both feet [facility] Diagnosis Diabetes mellitus due to underlying condition with diabetic polyneuropathy, unspecified whether master barber insulin use ([facility])- Primary PVD (peripheral vascular disease) ([facility] [facility]) Unspecified peripheral vascular disease Pain due to onychomycosis of toenails of both feet documented in this encounter [facility] Diagnosis Diabetes mellitus due to underlying condition with diabetic polyneuropathy, unspecified whether fci insulin use (HCC)- Primary Pain due to onychomycosis of toenails of both feet documented in this encounter [facility]* Diagnosis Onset Date Resolution Status Admit Date Essential tremor chronic May 202024 1:03pm Gait instability chronic May 202024 1:03pm Polyneuropathy chronic May 1:03pm Polypharmacy chronic June 01, 2025 1:03pm Radiculopathy, lumbar region chronic June 01, 2025 1:03pm Seizure disorder chronic May 202024 1:03pm [facility] Work Phone: Evaluation note* Diagnosis Localization-related epilepsy (HCC) Localization-related (focal) (partial) [...] (HCC) Other emphysema documented in this encounter [facility] (narrative)No reason for referral information [facility] Work Phone: Reason for visit Narrative* Injection (Routine) - Closed Specialty Diagnoses / Procedures Referred By Contac t Referred To Contact Neurology Diagnoses Lumbar radiculopathy Lumbosacral radiculopathy Procedures Nerve Block Alvino Torres DO [address] [place] [id number] Phone: tel: fax: Referral ID Status Reason Start Date Expiration Date Visits Re quested Visits Authorized [id number] Closed 05/18/2024 11/14/2024 1 1 [facility]* Injection (Routine) - Closed Specialty Diagnoses / Procedures Referred By Contac t Referred To Contact Neurology Diagnoses Lumbar radiculopathy Procedures Nerve Block Maximo Nguyen NP [address] [place] [id number] Phone: tel: fax: Referral ID Status Reason Start Date Expiration Date Visits Re quested Visits Authorized [id number] Closed 09/28/2024 03/27/2025 1 1 [facility] Narrative* Injection (Routine) - Closed Specialty Diagnoses / Procedures Referred By Contac t Referred To Contact Neurology Diagnoses Lumbar radiculopathy Procedures Nerve Block Melissa Goldberg PA [address] [place] [address] Phone: tel: fax: Referral ID Status Reason Start Date Expiration Date Visits Re quested Visits Authorized [id number] Closed 02/10/2025 08/09/2025 1 1 [facility] Summary Purpose Family History No Family History Records FoundNo Family History Records FoundNo Family History Records FoundNo Family History Records FoundNo Family History Records Found Advance Directives Documents on File Type Date Recorded 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 Power of Airplane Pilot Chief 01/13/2025 2:27 PM Healt hcare Power of Airplane Pilot Chief Advance Directives and Living Will 01/13/2025 2:27 PM Living Will Declaration Documents on File Type Date Recorded 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 Power of Airplane Pilot Chief 01/13/2025 2:27 PM Healt hcare Power of Airplane Pilot Chief Advance Directives and Living Will 01/13/2025 2:27 PM Living Will Declaration Advance Directive Response Recorded Date/ Time Advance Directives No June 1:38pm Reason for Referral Specialty Diagnoses / Procedures Referred By Contac t Referred To Contact Neurology Diagnoses Lumbar radiculopathy Procedures Nerve Block Maximo Nguyen NP [address] [place] [address] Referral ID Status Reason Start Date Expiration Date Visits Re quested Visits Authorized [id number] Closed 07/07/2024 01/03/2025 1 1 Specialty Diagnoses / Procedures Referred By Contac t Referred To Contact Diagnoses Lumbar radiculopathy DDD (degenerative disc disease), lumbar Gait instability Procedures MR lumbar spine wo contrast Maximo Nguyen, LOUISE [address] [place] [id number] [place] [facility] [address] [place] [address] Phone: [phone] Referral ID Status Reason Start Date Expiration Date V isits Requested Visits Authorized [id number] Pending Review 07/07/2024 01/03/2025 1 1 Specialty Diagnoses / Procedures Referred By Contac t Referred To Contact Home Health Services Diagnoses Lumbar radiculopathy DDD (degenerative disc disease), lumbar Polyneuropathy Gait instability Maximo Nguyen, LOUISE [address] [place] [id number] [facility] [address] [facility] [address] [place] [address] Referral ID Status Reason Start Date Expiration Date Visits Requested Visits Authorized [id number] Pending Review Specialty Services Required 07/07/2024 09/05/[phone] Specialty Diagnoses / Procedures Referred By Contac t Referred To Contact Diagnoses Rectal bleeding Marizol Hightower, [address] [place] [address] Referral ID Status Reason Start Date Expiration Date Visits Re quested Visits Authorized [id number] Closed 1 1 Chief Complaint and Reason for Visit Chief Complaint Admit Date Amb Documentation March 28, 2025 1:29p m EPI Follow up June 01, 2025 1: 03pm Reason for Visit Admit Date Essential tremor June 01, 2025 1: 03pm Gait instability June 01, 2025 1: 03pm Polyneuropathy June 01, 2025 1: 03pm Polypharmacy June 01, 2025 1: 03pm Radiculopathy, lumbar region May 1:03pm Seizure disorder June 01, 2025 1: 03pm Additional Source Comments (unrecognized sect ion and content) No Status Records FoundNo Status Records FoundNo Status Records FoundNo Status Records FoundNo Status Records Found INFORMATION SOURCE (unrecogn ized section and content) DATE CREATED AUTHOR 04/15/2018 [facility] DATE CREATED AUTHOR AUTHOR'S ORGANIZ ATION 04/15/2018 [facility] DATE CREATED AUTHOR AUTHOR'S ORGANIZ ATION 02/14/2023 [facility] DATE CREATED AUTHOR AUTHOR'S ORGANIZ ATION 03/12/2024 [facility] DATE CREATED AUTHOR AUTHOR'S ORGANIZ ATION 05/28/2025 [facility] dical Specialists [facility] Care Teams (unrecognized sec tion and content) Wildlife Rehabilitator Relationship Specialty Start Date End Date Mitul Richmond MD [address] [place] [address] PCP - ACO Reach 03/13/23 America Christianson PA [address] [place] [address] Physician Filler Machine Operator Family Medicine 11/03/23 Wildlife Rehabilitator Relationship Specialty Start Date End Date Mitul Richmond MD [address] [place] [address] PCP - ACO Reach 03/13/23 Mitul Richmond MD [address] [place] [address] PCP - General Internal Medicine 07/07/24 America Christianson PA [address] [place] [address] Physician Filler Machine Operator Family Medicine 11/03/23 Wildlife Rehabilitator Relationship Specialty Start Date End Date Mitul Richmond MD [address] [place] [address] PCP - ACO Reach 03/13/23 Mitul Richmond MD [address] [place] [address] PCP - General Internal Medicine 07/07/24 America Christianson PA [address] [place] [address] Physician Filler Machine Operator Family Medicine 11/03/23 Wildlife Rehabilitator Relationship Specialty Start Date End Date Mitul Richmond MD [address] [place] [address] PCP - ACO Reach 03/13/23 Mitul Richmond MD [address] [place] [address] PCP - General Internal Medicine 07/07/24 America Christianson PA [address] [place] [address] Physician Filler Machine Operator Family Medicine 11/03/23 Wildlife Rehabilitator Relationship Specialty Start Date End Date Mitul Richmond MD [address] [place] [address] PCP - ACO Reach 03/13/23 Mitul Richmond MD [address] [place] [address] PCP - General Internal Medicine 07/07/24 America Christianson PA [address] [place] [address] Physician Filler Machine Operator Family Medicine 11/03/23 Wildlife Rehabilitator Relationship Specialty Start Date End Date Mitul Richmond MD [address] [place] [address] PCP - ACO Reach 03/13/23 Mitul Richmond MD [address] [place] [address] PCP - General Internal Medicine 07/07/24 America Christianson PA [address] [place] [address] Physician Filler Machine Operator Family Medicine 11/03/23 Wildlife Rehabilitator Relationship Specialty Start Date End Date Mitul Richmond MD [address] [place] [address] PCP - ACO Reach 03/13/23 Mitul Richmond MD [address] [place] [address] PCP - General Internal Medicine 07/07/24 America Christianson PA [address] [place] [address] Physician Filler Machine Operator Family Medicine 11/03/23 Wildlife Rehabilitator Relationship Specialty Start Date End Date Mitul Richmond MD [address] [place] [address] PCP - ACO Reach 03/13/23 Mitul Richmond MD [address] [place] [address] PCP - General Internal Medicine 07/07/24 America Christianson PA [address] [place] [address] Physician Filler Machine Operator Family Medicine 11/03/23 Wildlife Rehabilitator Relationship Specialty Start Date End Date Mitul Richmond MD [address] [place] [address] PCP - ACO Reach 03/13/23 Mitul Richmond MD [address] [place] [address] PCP - General Internal Medicine 07/07/24 America Christianson PA [address] [place] [address] Physician Filler Machine Operator Family Medicine 11/03/23 Wildlife Rehabilitator Relationship Specialty Start Date End Date Mitul Richmond MD [address] [place] [address] PCP - ACO Reach 03/13/23 Mitul Richmond MD [address] [place] [address] PCP - General Internal Medicine 07/07/24 America Christianson PA [address] [place] [address] Physician Filler Machine Operator Family Medicine 11/03/23 Wildlife Rehabilitator Relationship Specialty Start Date End Date Mitul Richmond MD [address] [place] [address] PCP - ACO Reach 03/13/23 Mitul Richmond MD [address] [place] [address] PCP - General Internal Medicine 07/07/24 America Christianson PA [address] [place] [address] Physician Filler Machine Operator Family Medicine 11/03/23 Wildlife Rehabilitator Relationship Specialty Start Date End Date Mitul Richmond MD [address] [place] [address] PCP - ACO Reach 03/13/23 America Christianson PA [address] [place] [address] Physician Filler Machine Operator Family Medicine 11/03/23 Wildlife Rehabilitator Relationship Specialty Start Date End Date Mitul Richmond MD [address] [place] [address] PCP - ACO Reach 03/13/23 America Christianson PA [address] [place] [address] Physician Filler Machine Operator Family Medicine 11/03/23 Wildlife Rehabilitator Relationship Specialty Start Date End Date Mitul Richmond MD [address] [place] [address] PCP - ACO Reach 03/13/23 Mitul Richmond MD [address] [place] [address] PCP - General Internal Medicine 07/07/24 America Christianson PA [address] [place] [address] Physician Filler Machine Operator Family Medicine 11/03/23 Wildlife Rehabilitator Relationship Specialty Start Date End Date Mitul Richmond MD [address] [place] [address] PCP - ACO Reach 03/13/23 Mitul Richmond MD [address] [place] [address] PCP - General Internal Medicine 07/07/24 America Christianson PA [address] [place] [address] Physician Filler Machine Operator Family Medicine 11/03/23 Wildlife Rehabilitator Relationship Specialty Start Date End Date Mitul Richmond MD [address] [place] [address] PCP - ACO Reach 03/13/23 America Christianson PA [address] [place] [address] Physician Filler Machine Operator Family Medicine 11/03/23 Wildlife Rehabilitator Relationship Specialty Start Date End Date Mitul Richmond MD [address] [facility] [address] [place] [address] PCP - ACO Reach 03/13/23 America Christianson PA [address] [facility] [address] [place] [address] Physician Filler Machine Operator Family Medicine 11/03/23 Wildlife Rehabilitator Relationship Specialty Start Date End Date Mitul Richmond MD [address] [facility] [address] [place] [address] PCP - ACO Reach 03/13/23 Mitul Richmond MD [address] [place] [address] PCP - General Internal Medicine 07/07/24 America Christianson PA [address] [place] [address] Physician Filler Machine Operator Family Medicine 11/03/23 Wildlife Rehabilitator Relationship Specialty Start Date End Date Mitul Richmond MD [address] [place] [address] PCP - ACO Reach 03/13/23 Mitul Richmond MD [address] [place] [address] PCP - General Internal Medicine 07/07/24 America Christianson PA [address] [place] [address] Physician Filler Machine Operator Family Medicine 11/03/23 Venita Rosas, CODY Registered Nurse Family Medicine 11/12/24 Wildlife Rehabilitator Relationship Specialty Start Date End Date Mitul Richmond MD [address] [place] [address] PCP - General Internal Medicine 03/02/24 Wildlife Rehabilitator Relationship Specialty Start Date End Date Mitul Richmond MD [address] [place] [address] PCP - ACO Reach 03/13/23 Mitul Richmond MD [address] [place] [address] PCP - General Internal Medicine 07/07/24 America Christianson PA [address] [place] [address] Physician Filler Machine Operator Family Medicine 11/03/23 Venita Rosas, CODY Registered Nurse Family Medicine 11/12/24 Wildlife Rehabilitator Relationship Specialty Start Date End Date Mitul Richmond MD [address] [place] [address] PCP - ACO Reach 03/13/23 Mitul Richmond MD [address] [place] [address] PCP - General Internal Medicine 07/07/24 America Christianson PA [address] [place] [address] Physician Filler Machine Operator Family Medicine 11/03/23 Venita Rosas RN Registered Nurse Family Medicine 11/12/24 Wildlife Rehabilitator Relationship Specialty Start Date End Date Mitul Richmond MD [address] [place] [address] PCP - ACO Reach 03/13/23 Mitul Richmond MD [address] [place] [address] PCP - General Internal Medicine 07/07/24 America Christianson PA [address] [place] [address] Physician Filler Machine Operator Family Medicine 11/03/23 Venita Rosas RN Registered Nurse Family Medicine 11/12/24 Wildlife Rehabilitator Relationship Specialty Start Date End Date Mitul Richmond MD [address] [place] [address] PCP - ACO Reach 03/13/23 Mitul Richmond MD [address] [place] [address] PCP - General Internal Medicine 07/07/24 America Christianson PA [address] [place] [address] Physician Filler Machine Operator Family Medicine 11/03/23 Venita Rosas, CODY Registered Nurse Family Medicine 11/12/24 Wildlife Rehabilitator Relationship Specialty Start Date End Date Mitul Richmond MD [address] [place] [address] PCP - ACO Reach 03/13/23 Mitul Richmond MD [address] [place] [address] PCP - General Internal Medicine 07/07/24 America Christianson PA [address] [place] [address] Physician Filler Machine Operator Family Medicine 11/03/23 Venita Rosas RN Registered Nurse Family Medicine 11/12/24 Wildlife Rehabilitator Relationship Specialty Start Date End Date Mitul Richmond MD [address] [place] [address] PCP - ACO Reach 03/13/23 Mitul Richmond MD [address] [place] [address] PCP - General Internal Medicine 07/07/24 America Christianson PA [address] [place] [address] Physician Filler Machine Operator Family Medicine 11/03/23 Venita Rosas, CODY Registered Nurse Family Medicine 11/12/24 Wildlife Rehabilitator Relationship Specialty Start Date End Date Mitul Richmond MD [address] [place] [address] PCP - ACO Reach 03/13/23 Mitul Richmond MD [address] [place] [address] PCP - General Internal Medicine 07/07/24 America Christianson PA [address] [place] [address] Physician Filler Machine Operator Family Medicine 11/03/23 Venita Rosas, RN Registered Nurse Family Medicine 11/12/24 Wildlife Rehabilitator Relationship Specialty Start Date End Date Mitul Richmond MD [address] [place] [address] PCP - ACO Reach 03/13/23 Mitul Richmond MD [address] [place] [address] PCP - General Internal Medicine 07/07/24 America Christianson PA [address] [place] [address] Physician Filler Machine Operator Family Medicine 11/03/23 Venita Rosas, RN Registered Nurse Family Medicine 11/12/24 Wildlife Rehabilitator Relationship Specialty Start Date End Date Mitul Richmond MD [address] [place] [address] PCP - ACO Reach 03/13/23 Mitul Richmond MD [address] [place] [address] PCP - General Internal Medicine 07/07/24 America Christianson PA [address] [place] [address] Physician Filler Machine Operator Family Medicine 11/03/23 Venita Rosas RN Registered Nurse Family Medicine 11/12/24 Wildlife Rehabilitator Relationship Specialty Start Date End Date Mitul Richmond MD [address] [place] [address] PCP - ACO Reach 03/13/23 Mitul Richmond MD [address] [place] [address] PCP - General Internal Medicine 07/07/24 America Christianson PA [address] [place] [address] Physician Filler Machine Operator Family Medicine 11/03/23 Venita Rosas RN Registered Nurse Family Medicine 11/12/24 Wildlife Rehabilitator Relationship Specialty Start Date End Date Mitul Richmond MD [address] [place] [address] PCP - ACO Reach 03/13/23 Mitul Richmond MD [address] [place] [address] PCP - General Internal Medicine 07/07/24 America Christianson PA [address] [place] [address] Physician Filler Machine Operator Family Medicine 11/03/23 Venita Rosas, RN [address] [facility] [address] [place] [address] Registered Nurse Family Medicine 11/12/24 Wildlife Rehabilitator Relationship Specialty Start Date End Date Mitul Richmond MD [address] [place] [address] PCP - ACO Reach 03/13/23 Mitul Richmond MD [address] [place] [address] PCP - General Internal Medicine 07/07/24 America Christianson PA [address] [place] [address] Physician Filler Machine Operator Family Medicine 11/03/23 Venita Rosas RN [address] [place] [address] Registered Nurse Family Medicine 11/12/24 Wildlife Rehabilitator Relationship Specialty Start Date End Date Mitul Richmond MD [address] [place] [address] PCP - ACO Reach 03/13/23 Mitul Richmond MD [address] [place] [address] PCP - General Internal Medicine 07/07/24 America Christianson, FRANCO [address] [place] [address] Physician Filler Machine Operator Family Medicine 11/03/23 Venita Rosas RN [address] [place] [address] Registered Nurse Family Medicine 11/12/24 Team Status: Active Member Role Status Dates Mitul Richmond II MD Primary Care Provider Active Team Status: Active Member Role Status Dates Mitul Richmond II MD Primary Care Provider Active Start: March 28, 2025 Serenity Costa Attending Provider Active Start: March 28, 2025 Team Status: Inactive Member Role Status Dates Mitul Richmond II MD Primary Care Provider Active Start: June 01, 2025 End: June 01, 2025 Gloria Beard , MARKETING FINANCE SPECIALIST-MATERIALS MANAGER-C Attending Provider Active Start: June 01, 2025 End: June 01, 2025 Wildlife Rehabilitator Relationship Specialty Start Date End Date Mitul Richmond MD [address] [place] [address] PCP - ACO Reach 03/13/23 Mitul Richmond MD [address] [place] [address] PCP - General Internal Medicine 07/07/24 America Christianson PA [address] [place] [address] Physician Filler Machine Operator Family Medicine 11/03/23 Venita Rosas RN [address] [place] [address] Registered Nurse Family Medicine 11/12/24 Wildlife Rehabilitator Relationship Specialty Start Date End Date Mitul Richmond MD [address] [place] [address] PCP - ACO Reach 03/13/23 Mitul Richmond MD [address] [place] [address] PCP - General Internal Medicine 07/07/24 America Christianson PA [address] [place] [address] Physician Filler Machine Operator Family Medicine 11/03/23 Venita Rosas RN [address] [place] [address] Registered Nurse Family Medicine 11/12/24 Reason for [...] Reason Onset Date Comments Med Refill 12/20/2024 Reason Onset Date Comments Med Refill 01/24/2025 Reason Onset Date Comments Med Refill 01/27/2025 Reason Comments Follow-up Reason Onset Date Comments Med Refill 02/23/2025 Reason Comments DM Foot Care Dm nail care Reason Onset Date Comments Med Refill 05/10/2025 Reason Comments Toenail Care Reason Comments Med Refill Phenobarbitol to Saul rudd, looks like it was sent to [facility] and needs hydrocodone. Medication Question He is not taking Heydi ntix d/t he was having suicidal thoughts. Goals (unrecognized section and content) Goals may be documented in a n alternate section FOR RECORDS PERTAINING TO PATIENTS WHO ARE [...] BE BASED ON THE PRIMARY CLINICAL RECORDS. [employer] provides no warranty or guarantee of the accuracy or completeness of information in this document.
--- NOTE | 2025-06-17 12:46 | MR_ITS ---
[address] [address] Patient Name: DUTCH MONIQUE MRN: [id number] date: 1955 Sex: M Assigned Patient Location: LAB Current Patient Location: LAB Accession/Order Number: [id number] Exam Date: 06/17/2025 13:15 Report Date: 06/17/2025 16:29 At the request of: GENE BRAGG NP Procedure: MR lumbar spine wo con MR lumbar spine wo con 06/17/2025 3:01 PM SIGNS AND SYMPTOMS: Chronic low back pain affecting the lower extremities PROTOCOL: Multiplanar multisequence MR images of the lumbar spine without IV contrast COMPARISON: 07/21/2024 FINDINGS: There is straightening of the normal lumbar lordosis. The bones are otherwise in anatomic alignment. There is preservation of vertebral body heights. There is severe disc height loss at L5-S1. There is moderate disc height loss at L2-L3 and L3-4 with mild disc height loss at L1-L2 and L4-5. There is Modic type I endplate edema at L3-L4 and L5-S1. The conus terminates at the inferior endplate of the L1 vertebral body level. No epidural or paraspinous fluid collection is appreciated. At T12-L1: There is a normal disc, central canal, and neural foramen. At L1-L2: There is a normal disc, central canal, and neural foramen. At L2-L3: There is a broad-based disc bulge. There is a focal left foraminal disc protrusion. There is moderate left neural foraminal narrowing with mild right neural foraminal narrowing. No significant spinal canal narrowing. This is unchanged. At L3-L4: There is a broad-based disc bulge with facet hypertrophy. There is mild spinal canal stenosis with moderate to severe left and moderate right neural frontal stenosis. This is unchanged. At L4-L5: There is a circumferential disc bulge with facet hypertrophy and ligamentum flavum thickening. There is moderate spinal canal stenosis with severe bilateral neural foraminal narrowing and mass effect on the exiting L4 nerve roots bilaterally. This is unchanged. At L5-S1: There is a circumferential disc bulge with endplate osteophyte formation. There is facet hypertrophy. There is mild spinal canal narrowing with severe right and moderate severe left neural foraminal narrowing. Is mass effect on the exiting L5 nerve roots bilaterally, right greater than left. This is unchanged. MR/MR lumbar spine wo con IMPRESSION: At L3-L4: There is a broad-based disc bulge with facet hypertrophy. There is mild spinal canal stenosis with moderate to severe left and moderate right neural frontal stenosis. This is unchanged. At L4-L5: There is a circumferential disc bulge with facet hypertrophy and ligamentum flavum thickening. There is moderate spinal canal stenosis with severe bilateral neural foraminal narrowing and mass effect on the exiting L4 nerve roots bilaterally. This is unchanged. At L5-S1: There is a circumferential disc bulge with endplate osteophyte formation. There is facet hypertrophy. There is mild spinal canal narrowing with severe right and moderate severe left neural foraminal narrowing. Is mass effect on the exiting L5 nerve roots bilaterally, right greater than left. This is unchanged. Impression dictated by: Walt Almendarez M.D. 06/17/2025 4:29 PM Dictation Location: [place] [address] Electronically authenticated by: [id number] Y Date: 06/17/2025 16:29
[2025-06-17 12:52] LABS: Estimated GFR (African America >60 (>=60 mL/min/1.73m^2); Estimated GFR (Non-African Ame >60 (>=60 mL/min/1.73m^2)
--- NOTE | 2025-06-17 12:56 | MR_ITS ---
The [address] [address] Patient Name: DUTCH MONIQUE MRN: [id number] date: 1955 Sex: M Assigned Patient Location: LAB Current Patient Location: LAB Accession/Order Number: [id number] Exam Date: 06/17/2025 13:15 Report Date: 06/17/2025 16:41 At the request of: GENE BRAGG NP Procedure: MR head/brain wo/w con MR head/brain wo/w con 06/17/2025 3:02 PM SIGN AND SYMPTOMS: ^Unsteady Gait, Migraine Without Aura PROTOCOL: Multiplanar multisequence MR images of the brain with and without IV contrast CONTRAST: 13 mL of intravenous Dotarem COMPARISON: 09/12/2023 FINDINGS: Extra axial spaces: There is diffuse age-related cortical atrophy which is focally greatest along the frontal lobes bilaterally. Hemorrhage: None. Ventricular system: Within normal limits. Basal cisterns: Within normal limits and not effaced. Cerebral parenchyma: Periventricular and subcortical white matter T2 and FLAIR hyperintense signal is noted consistent with chronic microvascular ischemic change.. No abnormal postcontrast enhancement. Midline shift: None.. Cerebellum: Within normal limits. Brainstem: T2 and T2 FLAIR hyperintense signal is noted throughout the moreno. OTHER: Calvarium: Normal marrow signal. Vascular system: Satisfactory flow voids within the anterior and posterior circulation. Visualized Paranasal sinuses: There is partial opacification of the left maxillary sinus. Polypoid mucosal thickening is noted in the left sphenoid sinus with mucosal thickening in the ethmoid air cells bilaterally. Visualized Orbits: Hyperintense signal is noted on T1 weighted imaging within the left globe. The left globe is mildly atrophic. This is chronic in nature. Visualized upper cervical spine: Within normal limits. Sella and skull base: Within normal limits. MR/MR head/brain wo/w con IMPRESSION: No acute intracranial pathology or abnormal postcontrast enhancement. Chronic age-related neurodegenerative changes are noted with atrophy focally greatest along the frontal lobes bilaterally. Impression dictated by: Walt Almendarez M.D. 06/17/2025 4:41 PM Dictation Location: [place] [address] Electronically authenticated by: [id number] Y Date: 06/17/2025 16:41
--- OUTSIDE RECORDS SUMMARY | 2025-07-24 20:00 | XMS_ITS | Clinical Summary ---
Author Organization Unknown Care Team Providers Care Stitchdown Thread Laster Name Role Phone HARPER PERRY Unavailable Unavailable PATRIC FRAZIER, JULES Unavailable Unavailyue FU RN, KELLY Unavailable Unavailable HELEN ROSS, JALEESA Unavailable Unavailable Payers Payer Name Policy Type Policy Number Effective Date Expira tion Date MEDICAID STATE [id number] Problems Condition Name Condition Details Condition Category Status Onset Date Resolution Date Last Treatment Date Treating Clinician Comments TYPE 2 DIABETES MELLITUS WITH DIABETIC POLYNEUROPAT HY Active 2023-10 00:00: 00 ESSENTIAL TREMOR Active 2023-10 00:00: 00 LOCAL-REL SYMPTC EPI W SIMP PRT SEIZ,NOT NTRCT, W/O STAT EPI Active 2023-10 00:00: 00 RADICULOPATH Y, LUMBAR REGION Active 2023-10 00:00: 00 RADICULOPATH Y, LUMBOSACRAL REGION Active 2023-10 00:00: 00 EMPHYSEMA, UNSPECIFIED Active 2023-10 00:00: 00 BENIGN PROSTATIC HYPERPLASIA WITH LOWER URINARY TRACT SYMP Active 2023-10 00:00: 00 HISTORY OF FALLING Active 2023-10 00:00: 00 Allergies, Adverse Reactions, Alerts Allergy Name Allergy Type Status Severity Reaction(s) Onset Date Inactive Date Treating Clinician Comments CECLOR Propensity to adverse reactions Active 2023-10 14:34: 38 DULOXETINE Propensity to adverse reactions Active 2023-10 14:33: 53 CARBAMAPEZIN E Propensity to adverse reactions Active 2023-10 14:34: 24 BUPROPION Propensity to adverse reactions Active 2023-10 14:34: 11 Medications Ordered Medication Name Filled Medication Name Start Date Stop Date Current Medication? Ordering Clinician Indication Dosage Frequency Signature (SIG) Comments Components pantoprazol e 40 mg tablet,ashley yed release 2023-10 00:00: 00 Yes [id number] GERD 1 tablet DAILY 1 tablet DAILY (route: oral) Med Classific ation: Gastroint estinal Therapy Agents hydrocodone 10 mg-acetamin ophen 325 mg tablet 2023-10 00:00: 00 04-19 23:59 :00 No [id number] PAIN Per instruc tions EVERY 6 HOURS NEEDED FOR 15 DAYS Per instructio ns EVERY 6 HOURS NEEDED FOR 15 DAYS (route: oral) Med Classific ation: Analgesic , Anti-infl ammatory or Antipyret ic pregabalin 150 mg capsule 2023-10 00:00: 00 Yes [id number] NEUROPATHY 1 capsule (150 MG) BEFORE BEDTIME 1 capsule (150 MG) BEFORE BEDTIME (route: oral) Med Classific ation: Central Nervous System Agents Dilantin Extended 100 mg capsule 2023-10 00:00: 00 Yes [id number] TREMORS 1 capsule 3 TIMES DAILY 1 capsule 3 TIMES DAILY (route: oral) Med Classific ation: Central Nervous System Agents phenobarbit al 32.4 mg tablet 2023-10 00:00: 00 Yes [id number] SEIZURES 1 tablet THREE TIMES DAILY 1 tablet THREE TIMES DAILY (route: oral) Med Classific ation: Central Nervous System Agents acetaminoph en 500 mg capsule 2023-10 00:00: 00 Yes [id number] PAIN 1 capsule EVERY 6 HOURS 1 capsule EVERY 6 HOURS (route: oral) Med Classific ation: Analgesic , Anti-infl ammatory or Antipyret ic albuterol sulfate HFA 90 mcg/actuati on aerosol inhaler 2023-10 00:00: 00 Yes [id number] SOB 2 puff EVERY 4 HOURS 2 puff EVERY 4 HOURS (route: inhalation ) Med Classific ation: Respirato ry Therapy Agents aripiprazol e 2 mg tablet 2023-10 00:00: 00 Yes [id number] MOOD. DISORDER 1 tablet DAILY 1 tablet DAILY (route: oral) Med Classific ation: Central Nervous System Agents diphenhydra mine 25 mg capsule 2023-10 00:00: 00 Yes [id number] ALLERGIES 1 capsule BEDTIME 1 capsule BEDTIME (route: oral) Med Classific ation: Respirato ry Therapy Agents EpiPen 0.3 mg/0.3 mL injection, auto-inject or 2023-10 00:00: 00 Yes [id number] ANAPHYLAXIS 0.3 mg DIRECTED 0.3 mg DIRECTED (route: injection) Med Classific ation: Cardiovas cular Therapy Agents fluticasone propionate 50 mcg/actuati on nasal spray,suspe nsion 2023-10 00:00: 00 Yes [id number] ALLERGIES 2 spray DAILY 2 spray DAILY (route: nasal) Med Classific ation: Respirato ry Therapy Agents furosemide 20 mg tablet 2023-10 00:00: 00 Yes [id number] EDEMA 1 tablet DAILY 1 tablet DAILY (route: oral) Med Classific ation: Cardiovas cular Therapy Agents lisinopril 20 mg tablet 2023-10 00:00: 00 Yes [id number] HTN 1 tablet DAILY 1 tablet DAILY (route: oral) Med Classific ation: Cardiovas cular Therapy Agents naloxone 4 mg/actuatio n nasal spray 2023-10 00:00: 00 Yes [id number] OVERDOSE 1 spray NEEDED 1 spray A S NEEDED (route: nasal) Med Classific ation: Antidotes and other Reversal Agents Nicorette 4 mg buccal lozenge 2023-10 00:00: 00 Yes [id number] SMOKING CESSATION 1 lozenge EVERY 8 HOURS 1 lozenge EVERY 8 HOURS (route: buccal) Med Classific ation: Chemical Dependenc y, Agents to Treat primidone 50 mg tablet 2023-10 00:00: 00 Yes [id number] SEIZURES 1-2 tablet 3 TIMES DAILY 1-2 tablet 3 TIMES DAILY (route: oral) Med Classific ation: Central Nervous System Agents Quit 4 mg gum 2023-10 00:00: 00 Yes [id number] SMOKING CESSATION 1 gum EVERY 8 HOURS 1 gum EVERY 8 HOURS (route: buccal) Med Classific ation: Chemical Dependenc y, Agents to Treat sildenafil 50 mg tablet 2023-10 00:00: 00 Yes [id number] ERECTILE DYSFUNCTION 1 tablet NEEDED 1 tablet NEEDED (route: oral) Med Classific ation: Drugs to treat Erectile Dysfuncti on simvastatin 40 mg tablet 2023-10 00:00: 00 Yes [id number] CHOLESTEROL 1 tablet DAILY 1 tablet DAILY (route: oral) Med Classific ation: Cardiovas cular Therapy Agents tamsulosin 0.4 mg capsule 2023-10 00:00: 00 Yes [id number] BPH 1 capsule DAILY 1 capsule DAILY (route: oral) Med Classific ation: Genitouri nary Therapy tizanidine 4 mg capsule 2023-10 00:00: 00 Yes [id number] PAIN 2 capsule EVERY 8 HOURS 2 capsule EVERY 8 HOURS (route: oral) Med Classific ation: Locomotor System venlafaxine ER 150 mg tablet,exte nded release 24 hr 2023-10 00:00: 00 Yes [id number] MOOD DISORDER 1 tablet DAILY 1 tablet DAILY (route: oral) Med Classific ation: Central Nervous System Agents venlafaxine ER 75 mg capsule,ext ended release 24 hr 11-28 00:00: 00 Yes [id number] ANTIDEPRESS ANT 1 capsule DAILY 1 capsule DAILY (route: oral) Med Classific ation: Central Nervous System Agents Vital Signs Vital Name Observation Time Observation Value Commen ts Temperature 2025-06-10 14:30:00.000 97.6 [degF] Temperature 2025-06-03 13:08:00.000 97.6 [degF] Temperature 2025-05-27 13:11:00.000 97.5 [degF] Pulse 2025-06-10 14:30:00.000 68 /min Pulse 2025-06-03 13:08:00.000 63 /min Pulse 2025-05-27 13:11:00.000 67 /min Respirations 2025-06-10 14:30:00.000 16 /min Respirations 2025-06-03 13:08:00.000 16 /min Respirations 2025-05-27 13:11:00.000 16 /min Systolic Blood Pressure 2025-06-10 14:30:00.000 150 mm [Hg] Systolic Blood Pressure 2025-06-03 13:08:00.000 142 mm [Hg] Systolic Blood Pressure 2025-05-27 13:11:00.000 129 mm [Hg] Diastolic Blood Pressure 2025-06-10 14:30:00.000 84 mm [Hg] Diastolic Blood Pressure 2025-06-03 13:08:00.000 80 mm [Hg] Diastolic Blood Pressure 2025-05-27 13:11:00.000 86 mm [Hg] Plan of Treatment Planned Activity Planned Date Details Comments Future Scheduled Test SKILLED NU RSE TO EVALUATE AND DEVELOP PLAN OF CARE TO BE COUNTERSIGNED BY PHYSICIAN. SKILLED NURSE TO ASSESS/EVALUATE CO-MORBID CONDITIONS INCLUDING DM, ESSENTIAL TREMOR, RADICULOPATHY AND OTHER CONDITIONS THAT PRESENT THEMSELVES DURING THE COURSE OF THIS EPISODE TO IDENTIFY CHANGES AND INTERVENE TO MINIMIZE COMPLICATIONS. [code = SKILLED NURSE TO EVALUATE AND DEVELOP PLAN OF CARE TO BE COUNTERSIGNED BY PHYSICIAN. SKILLED NURSE TO ASSESS/EVALUATE CO-MORBID CONDITIONS INCLUDING DM, ESSENTIAL TREMOR, RADICULOPATHY AND OTHER CONDITIONS THAT PRESENT THEMSELVES DURING THE COURSE OF THIS EPISODE TO IDENTIFY CHANGES AND INTERVENE TO MINIMIZE COMPLICATIONS.] Future Scheduled Test SKILLED NU RSE TO PERFORM MULTIFACTOR FALL RISK ASSESSMENT AND IMPLEMENT INTERVENTIONS TO DECREASE RISK OF FALLS. SKILLED NURSE TO INSTRUCT ON HOME SAFETY, IMPACT OF POLYPHARMACY, ENVIRONMENTAL SAFETY, AND FALL PREVENTION. [code = SKILLED NURSE TO PERFORM MULTIFACTOR FALL RISK ASSESSMENT AND IMPLEMENT INTERVENTIONS TO DECREASE RISK OF FALLS. SKILLED NURSE TO INSTRUCT ON HOME SAFETY, IMPACT OF POLYPHARMACY, ENVIRONMENTAL SAFETY, AND FALL PREVENTION.] Future Scheduled Test SKILLED NU RSE FOR OBSERVATION / ASSESSMENT OF ENDOCRINE STATUS TO IDENTIFY CHANGES ASSOCIATED WITH EXACERBATION FOR EARLY INTERVENTION OF COMPLICATIONS. [code = SKILLED NURSE FOR OBSERVATION / ASSESSMENT OF ENDOCRINE STATUS TO IDENTIFY CHANGES ASSOCIATED WITH EXACERBATION FOR EARLY INTERVENTION OF COMPLICATIONS.] Future Scheduled Test SKILLED NU RSE FOR OBSERVATION / ASSESSMENT OF PAIN, EFFECTIVENESS OF PAIN MANAGEMENT REGIMEN AND SKILLED TEACHING RELATED TO PAIN MANAGEMENT. SKILLED NURSE TO INTERVENE WITH INCREASED PAIN LEVEL TO MINIMIZE COMPLICATIONS. [code = SKILLED NURSE FOR OBSERVATION / ASSESSMENT OF PAIN, EFFECTIVENESS OF PAIN MANAGEMENT REGIMEN AND SKILLED TEACHING RELATED TO PAIN MANAGEMENT. SKILLED NURSE TO INTERVENE WITH INCREASED PAIN LEVEL TO MINIMIZE COMPLICATIONS.] Future Scheduled Test SKILLED NU RSE TO REVIEW MEDICATION PROFILE AND RECONCILE MEDICATIONS NEEDED. SKILLED NURSE MAY INSTRUCT AND REINFORCE MEDICATION TEACHING RELATED TO USE OF MEDICATIONS TO TREAT DISEASE PROCESSES. SKILLED NURSE MAY FILL MEDI-AU PAIR PER CURRENT MEDICATION ORDERS/PROFILE [id number]. [code = SKILLED NURSE TO REVIEW MEDICATION PROFILE AND RECONCILE MEDICATIONS NEEDED. SKILLED NURSE MAY INSTRUCT AND REINFORCE MEDICATION TEACHING RELATED TO USE OF MEDICATIONS TO TREAT DISEASE PROCESSES. SKILLED NURSE MAY FILL MEDI-AU PAIR PER CURRENT MEDICATION ORDERS/PROFILE [id number].] Future Scheduled Test SKILLED NU RSE TO PREFILL AU PAIR DEVICE Q 1XWEEK. [code = SKILLED NURSE TO PREFILL AU PAIR DEVICE Q 1XWEEK.] Future Scheduled Test JUSTIFY NE ED FOR CONTINUED CARE (RECERT) DUE TO NEW GOALS AND/OR PROBLEMS: PATIENT CONTINUES TO REQUIRE A SKILLED NURSE 1XWEEK FOR MEDICATION MANAGEMENT [code = JUSTIFY NEED FOR CONTINUED CARE (RECERT) DUE TO NEW GOALS AND/OR PROBLEMS: PATIENT CONTINUES TO REQUIRE A SKILLED NURSE 1XWEEK FOR MEDICATION MANAGEMENT] Goal 2024-11-26 Patient Goal - MEDS FILLED U P CORRECTLY Goal 2025-01-26 Patient Goal - MEDS FILLED U P CORRECTLY Goal 2025-03-25 Patient Goal - MEDS FILLED U P CORRECTLY Goal 2025-05-23 Patient Goal - MEDS FILLED U P CORRECTLY Goal Patient Goal - MEDS FILLED U P CORRECTLY Goal Provider Goal - A PLAN OF CARE WILL BE ESTABLISHED THAT MEETS ALL PATIENT'S NURSING NEEDS AND COUNTERSIGNED BY PHYSICIAN. Goal Provider Goal - PATIENT WILL DEMONSTRATE/VERBALIZE KNOWLEDGE OF INTERVENTIONS TO PREVENT FALLS AND SAFETY HAZARDS. PATIENT WILL REMAIN SAFE WITHIN HOME ENVIRONMENT. Goal Provider Goal - CHANGES IN ENDOCRINE STATUS WILL BE IDENTIFIED AND REPORTED TO PHYSICIAN FOR PROMPT INTERVENTION TO PREVENT ASSOCIATED RISKS. Goal Provider Goal - INCREASED PAIN OR PAIN CONTROL MEASURES WILL BE INDENTIFIED AND PROMPTLY REPORTED TO THE PHYSICIAN. PATIENT / CAREGIVER WILL VERBALIZE UNDERSTANDING OF PHARMACOLOGIC AND NON-PHARMACOLOGIC PAIN CONTROL MEASURES. Goal Provider Goal - PATIENT WILL RECEIVE MEDICATIONS PRESCRIBED. Goal Provider Goal - PATIENT / CAREGIVER WILL DEMONSTRATE ABILITY TO ADMINISTER MEDICATIONS VIA AU PAIR DEVICE. Goal Provider Goal - Encounters Start Date/Time End Date/Time Encounter Type Admission Type Attending [facility] Facility Care Department Encounter ID Discharge Date Discharge Status Discharge Condition Discharge Reason Percent Goals Met 2025-05-27 00:00:00 2025-07-25 00:00:00 Outpatient RECERTIFIC KELLY ANTHONY [facility] [id number]
== END 2025-06-17 12:33 | disposition home or self-care (01) ==
LOC: LAB 12:32
PROVIDERS: Pathology Anatomic Pathology & Clinical Pathology; PCP Internal Medicine; Visit Provider Nurse Practitioner Family
DX: M54.16 Radiculopathy, lumbar region (principal); R26.81 Unsteadiness on feet; G43.009 Migraine without aura, not intractable, without status migrainosus; G40.909 Epilepsy, unspecified, not intractable, without status epilepticus; M51.369 Other intervertebral disc degeneration, lumbar region without mention of lumbar back pain or lower extremity pain
CPT/HCPCS: 36415; 70553; 72148; 82565; A9575

== ENCOUNTER 2025-08-30 12:40 | Outpatient (OUT) | payer MEDICARE, MEDICAID, SELFPAY ==
--- OUTSIDE RECORDS SUMMARY | 2025-08-25 09:12 | XMS_ITS | Continuity of Care Document ---
Author Organization [facility] Address [address] [place] [address] Phone Care Team Providers Care Probate Paralegal Name Role Phone Mitul Richmond II Primary Care Provider [phone] Gloria Beard APRN-BERNY-C Attending Provider + Jono Torres DO Attending Provider [phone] Nirmal Garcia DO Attending Provider Care Teams Patient Care Team Team Status: Active Member Role/Relationship Status Dates Mitul Richmond II MD Primary Care Provider Active Visit Care Team Team Status: Inactive Member Role/Relationship Status Dates Mitul Richmond II MD Primary Care Provider Active Start: June 01, 2025 End: June 01, 2025DAVID Hassan-CAttending ProviderActiveStart: June 01, 2025 End: June 01, 2025 Visit Care Team Team Status: Inactive Member Role/Relationship Status Dates Mitul Richmond II MD Primary Care Provider Active Start: July 05, 2025 End: July 05Riley Haynes ProviderActive Start: July 05, 2025 End: July 05, 2025 Visit Care Team Team Status: Inactive Member Role/Relationship Status Martine Richmond II MD Primary Care Provider Active Start: August 08, 2025 End: August 08, 2025Riley Estrella ProviderActiveStart: August 08, 2025 End: August 08, 2025 Patient Care Team Team Status: Inactive Member Role/Relationship Status Dates Mitul Richmond II MD Primary Care Provider Active Start: August 25, 2025 End: August 25Riley Haynes ProviderActiveStart: August 25, 2025 End: August 25, 2025 Chief Complaint and Reason for Visit Chief Complaint Admit Date EPI Follow up June 01, 2025 1: 03pm EPI- BILAT L4-- NPCR; Medicare/Medicaid July 05, 2025 11:23am Radiculopathy, lumbar region July 10:53am EMG RLE per Dr. Nirmal Garcia August 252024 1:30pm Reason for Visit Admit Date Essential tremor June 01, 2025 1: 03pm Gait instability June 01, 2025 1: 03pm Migraine without aura and wi thout status migrainosus, not intractable June 01, 2025 1:03pm Polyneuropathy June 01, 2025 1: 03pm Polypharmacy June 01, 2025 1: 03pm Radiculopathy, lumbar region May 1:03pm Seizure disorder June 01, 2025 1: 03pm Lumbosacral radiculopathy August 08, 2025 10:53am Polyneuropathy August 25, 2025 1 :30pm Reason for Referral Type Reason(s) Provider Provider [facility] Address Start Date Lumbosacral radiculopathy M54.17 - Radiculopathy, lumbosacral artqwkL61.17 - Radiculopathy, [facility]ac[facility] [address] [address]he [address] Allergies, Adverse Reactions, Alerts Allergen Type Severity Reaction Last Updated Verified Status cefaclor Allergy Unknown Hives August 08, 2025 10:03am Yes Active duloxetine Allergy Unknown makes angry August 08, 2025 10:03a m Yes Active oxcarbazepine Allergy Unknown Anaphylaxis August 08, 2025 10: 03am Yes Active bee stings Allergy Unknown Anaphylaxis June 2:41pm No Active Social History Smoking Status Status Start Date End Date Date of Observa tion Smokes tobacco daily (finding) August 10, 2025 2:16pm Observation Status Observation Response Date of Response Legal Sex Male (finding) Sex Assigned At BirthMaleSeptember 1954 Family History Relationship Condition Age at Onset Recorded Date/T rajeev Not Specified Cerebrovascular accident (CVA) Unknown Problems Active Problems Problem Diagnosis/Recorded Date Onset Date Stat us Essential tremor March 28, 2025 12:31pm Unknown A ctive Migraine without aura and wi thout status migrainosus, not intractable June 01, 2025 5:42pm Unknown Active Radiculopathy, lumbar region March 28, 2025 12:39pm Un known Active Lumbosacral radiculopathy July 05, 2025 11:29am Unknown Active Gait instability June 01, 2025 12:14pm Unknown Active Polypharmacy June 01, 2025 12:14pm Unknown Ac tive Seizure disorder June 01, 2025 12:14pm Unknown Active Polyneuropathy June 01, 2025 12:14pm Unknown Active Medications Medication Status Dose Units Route Directions Qty Days Refills S tart Date Stop Date End Date Reason(s) Instructions Adherence Pregabalin 150 mg capsule Discontinued 150 MG PO As Directed 90 30 0 August 15, 2025 11:16am August 15, 2025 11:47amLumbar radiculopathy Radiculopathy, lumbar region nerve painTake 1 capsule (150 mg) by mouth in the morning and 1 capsule (150 mg) in the evening and 1 capsule(150 mg) before bedtime.Pregabalin 150 mg capsule Kksrei232KDRBEn Pfwqzeqj63989Poqjnhu 27th, 2025 11:46amLumbar radiculopathy Radiculopathy, lumbar regionTake 1 capsule (150 mg) by mouth in the morning and 1 capsule (150 mg) in the evening and 1 capsule(150 mg) before bedtime.Unknown Baclofen 10 mg qwhlgcShzmrz49MAXAEkkbd at bedtimeSept2017 11:00pm pain/muscle spasmsUnknownHydrocodone-Acetaminophen 10-325 mg rfdyifFqtkgx91 - 325TABPOFour times daily as needed for PainSeptember 2017 11:00pmUnknown Fluticasone Propionate 50 mcg/actuation spray,ttzgkgicebMeepmv7SZUGGHGPLOMUBQT Daily at bedtime as needed for Allergy SymptomsSept2017 11:00pm UnknownLamotrigine 25 mg lrckziUtahpt59BKFOYuofm at bedtimeSept2017 11:00pmmigraineUnknownPregabalin 150 mg rlnibelEjcceyjdzvom764GNDCVcqko times dailySept2017 11:00pmJun2024 12:41pmnerve painPantoprazole 40 mg tablet,delayed release (DR/EC)Npxriz05TMDSMjork morningSept2017 11:00pmgerdUnknownPhenobarbital 32.4 mg iqegmoJwfgjt29.4MGPOThree times daily June 30, 2018 11:00pmseizuresUnknownPhenytoin Sodium Extended 100 mg qfdonikQatxrd785MXKGWfzpw times dailySept2017 11:00pmepilepsyUnknown Primidone 50 mg doetzpTxwkpmniuuhw26UEXVRzctz dailySept2017 11:00pm March 28, 2025 12:41pmessential tremorsSimvastatin 40 mg kzgdntNsgjjq32OWVMFzlhv morningSept2017 11:00pmhyperlipidemiaUnknownSumatriptan Succinate 100 mg kcljicJtrmlrtvghjf977GMWAYv Directed as needed for Migraine Headache June 30, 2018 11:00pmAugust 2024 12:49pm Nrwhzht-Nfaefyipsswcg-Vgethjbk (Excedrin Migraine) 250-250-65 mg TabletActive2 TABPODaily as needed for Migraine HeadacheSept2017 11:00pmUnknown Venlafaxine 75 mg capsule,extended release 49axQnieob37QGYNZkwxw morning June 30, 2018 11:00pmdepressionUnknownVenlafaxine 150 mg capsule,extended release 68lcBpuawc871IIYFKbwhd morningSept2017 11:00pmdepression UnknownAlbuterol Sulfate (Ventolin Hfa) 90 mcg/actuation HFA aerosol inhaler Myzcur8YMDLYXFNDPAPRUDmvjy dailySept2017 11:00pmcopdUnknown Tizanidine 4 mg iisifmXrlqyrimwvfe6TEOPSgafa dailySept2017 11:00pm August 08, 2025 10:03ammuscle spasmsPrimidone 50 mg xisptdFkbvza68LMEWFv Qdxvnxab2456Jmoe 9th, 2025 12:30pmEssential tremor Essential tremor essential tremorsTAKE 2 TABLETS BY MOUTH IN THE MORNING, TAKE 1 TABLET IN THE AFTERNOON, AND TAKE 2 TABLETS AT BEDTIMEUnknownPregabalin 150 mg capsule Lmenwntnhric372NQPYDb Rkoypatr54965Blxc 2024 12:38pmOctober 2024 11:16amLumbar radiculopathy Radiculopathy, lumbar region nerve painTake 1 capsule (150 mg) by mouth in the morning and 1 capsule (150 mg) in the evening and 1 capsule(150 mg) before bedtime.Tamsulosin 0.4 mg capsule Active0.4MGPODailyAugust 2024 11:00pmUnknownAripiprazole 2 mg tabletActive 2MGPODailyAugust 2024 11:00pmUnknown Medical Equipment Device Date Implanted Device Details LENS ACRYSOF IOL [id number] July 02, 2018 Vital Signs Vital Reading Result Reference Range Collection Date/Time Height 69 [in_i] June 01, 2025 11:16mqLmqbgz27.67 kgAugust 2024 11:49amHeart Rate79 /nxp62-752Ibkzil 2024 11:49amRespiratory rate16 /ruh21-32Pjtbll 2024 11:49amOxygen saturation by Pulse eijreubm15 %95-100August 2024 11:49amBP Nqjovwen400 mm[Hg]100-140[facility] 2024 11:49amBP Lguxfgdor23 mm[Hg]60-100 June 01, 2025 11:49amBMI (Body Mass Index)21.7 kg/y3Lvmkpc 2024 11:49amHeart Rate82 /lgw34-804Wztgjrrtc 2024 10:29amOxygen saturation by Pulse ixrxtrvv71 %95-100September 2024 10:29amBP Jnikqusi621 mm[Hg]100-140 July 05, 2025 10:29amBP Ninmzqlky70 mm[Hg]60-100September 2024 10:07lcOilrzv22 [in_i]August 08, 2025 9:62zjLtthsk36.00 kgOctr[facility] 2024 9:55amBP Lwvkbwmd128 mm[Hg]100-140[facility] 2024 9:55amBP Fmqpiqkbo17 mm[Hg] 60-100October 2024 9:55amBMI (Body Mass Index)21.1 kg/h5Zagibas 2024 9:55am Advance Directives Advance Directive Response Recorded Date/ Time Advance Directives No August 10, 2025 1:16pm Insurance Providers Guarantor Ricardo Radha Daniel Address [address] [place] [address]Contact Info.Home Phone: Coverage Status Update:2025 Payer Group Member ID Coverage Type Subscriber Relationship to Subscriber Effective Date Expiration Date Medicaid [id number] A Stull Id: [id number] [address] [facility] [address] Home Phone: Email: [email or web address] [id number] Radha Sanchez Id: [id number] [address] [facility] [address] Home Phone: Email: [email or web address] Encounters Encounter Location(s) Arrival/Admit Date Discharge/Departure Date Discharge/Departure Disposition Provider(s) Departed Physician/ Provider Office Visit -[facility] June 01, 2025 1:03pm June 01, 2025 2:00pm Discharged to home care or self care (routine discharge) GISSEL Hassan Departed Physician/ Provider Office Visit -[facility] July 05, 2025 11:23am July 05, 2025 11:53am Discharged to home care or self care (routine discharge) Juan M Swan DO Departed Physician/ Provider Office Visit -[facility] August 08, 2025 10:53am August 08, 2025 11:44am Discharged to home care or self care (routine discharge) Nirmal Garcia DO Departed Physician/ Provider Office Visit -[facility] August 25, 2025 1:30pm August 25, 2025 2:11pm Discharged to home care or self care (routine discharge) Juan M Swan DO Recent Diagnosis Onset Date Admit Date Essential tremor Unknown June 01 1:03pm Gait instability Unknown June 01 1:03pm Migraine without aura and wi thout status migrainosus, not intractable Unknown June 01, 2025 1:03pm Polyneuropathy Unknown June 01 1:03pm Polypharmacy Unknown June 01 1:03pm Radiculopathy, lumbar region Unknown May us2024 1:03pm Seizure disorder Unknown June 01 1:03pm Lumbosacral radiculopathy Unknown Julobe r 2024 10:53am Polyneuropathy Unknown August 25 1:30pm Assessments Diagnosis Onset Date Resolution Status Admit Date Essential tremor chronicAugus2024 1:03pmGait instabilitychronicAugu2024 1:03pm Migraine without aura and without status migrainosus, not intractablechronic June 01, 2025 1:03pmPolyneuropathychronicAugust 2024 1:03pm PolypharmacychronicAugust 2024 1:03pmRadiculopathy, lumbar regionchronic June 01, 2025 1:03pmSeizure disorderchronicAugust 2024 1:03pm Lumbosacral radiculopathyacuteOctober 2024 10:53amPolyneuropathychronic August 25, 2025 1:30pm Plan of Treatment Author [facility] Beard [facility] 5:56pmIt is my impression the patient has lumbar radiculopathy. The patient reports bilateral low back pain and chronic bilateral lower extremity weakness. We did update imaging in 2023 due to recurrent falls. MRI lumbar spine on 07/22/2024 revealed some progression of DDD with moderate canal stenosis and severe neuroforaminal narrowing at L4-L5 and severe neuroforaminal narrowing with mild stenosis at L5-S1 among lesser degrees of changes at other levels. The patient has tried conservative measures including home-directed therapy exercises, narcotic medications (prescribed by an outside provider), neuropathic pain medication, and OTC medications previously. Bilateral L4 epidural injections have provided benefit. Most recent injections on 01/18/2025 provided approximately 50% pain reduction with effects lasting greater than 3 months. The improved his quality of life and ability to perform ADLs. He would like to proceed with further injections to help with symptom management. Lyrica, tizanidine, and hydrocodone-acetaminophen have also been helpful. Unfortunately, despite current interventions, the patient continues to be quite limited in his functional ability. He cannot stand upright for long periods of time due to exacerbation of back pain. He has difficulty walking for any extended distance and believes his lower extremity weakness has worsened over the past 1 year. He states his knees feel like they want to buckle. I believe updated MRI is indicated to evaluate for possible compressive lesion in the lumbar spine which could be debilitating if not promptly identified and treated. The patient would like to pursue a surgical opinion. PLAN: - MRI of the lumbar spine. The patient may be a surgical candidate pending MRI results - Referral to neurosurgery for evaluation and surgical opinion - Continue physical therapy - Plan for repeat bilateral L4 epidural injections on 07/05/2025. Risks including but not limited to epidural hematoma, bleeding, contrast reaction, infection, cumulative steroid dose risk, allergic reaction, and weakness have been discussed with the patient. He verbalizes understanding and wishes to proceed - We discussed possible referral to pain management for further evaluation and consideration of alternative procedures such as radiofrequency ablation. The patient does not wish to pursue this currently - Continue Lyrica 150 mg by mouth 3 times a day. OARRS reviewed - Fall precautions have been discussed Chronic gait instability. This is likely multifactorial, related to lumbosacral radiculopathy, polyneuropathy, and generalized deconditioning. PLAN: - I counseled the patient on fall prevention measures - I encouraged regular use of a walker to help with stability?? The patient has a history of essential tremor. He has a slightly asymmetric postural and intention tremor on physical exam today, consistent with this diagnosis. Side effects from Abilify may also be contributory. PLAN: - Continue primidone 50 mg tablet - take 2 tablets by mouth daily in the morning, take 1 tablet by mouth daily in the afternoon, and take 2 tablets by mouth daily at bedtime. I would be hesitant to increase this dose due to patient taking other medications with PROVIDER RELATIONS CONSULTANT depressive effects - Continue Lyrica (more for neuropathic pain) - I would avoid propranolol in the setting of respiratory condition The patient has polyneuropathy as identified on BLE EMG from 10/2019 (severe, axonal loss). He reports numbness and paresthesias in the bilateral feet and has diminished sensation in the distal BLE on physical exam. History of DM which is likely causative. PLAN: - Continue physical therapy - Check feet regularly for wounds - Follow up closely with primary care provider for optimal management of diabetes The patient reports a history of seizure disorder which is stable and well controlled. His most recent seizure was in 1992 and was described as generalized tonic-clonic. PLAN: - MRI of the brain - Currently taking phenobarbital and phenytoin (prescribed by PCP) with no reported side effects. Given his stability over 30 years, we did discuss potential reduction in medication, but the patient is fearful to reduce AEDs Polypharmacy. It is my impression that the patient has migraine. He reports intermittent headaches which seem most clinically consistent with this. The patient's headaches are throbbing in quality and severe intensity. Aggravated by routine physical activity and relieved by rest. Accompanied by typical migrainous features of photophobia, phonophobia, and nausea. He is uncertain of the frequency. He has tried OTC Excedrin which provides some benefit. PLAN: - MRI of the brain to evaluate for possible intracranial abnormality which could be contributory the patient's symptoms - I encouraged the patient to keep a headache journal/diary to help track the frequency of his headaches and to help identify possible triggers - We discussed prescription pharmacologic therapy for migraine management. The patient does not believe this is necessary currently - Try to ensure adequate duration, adequate sleep, and stress management - Limit use of cxpk-gse-pjpdovp analgesics to no more than 10 days/month to help prevent medication overuse headache Diagnoses and treatment plan discussed. The patient verbalizes understanding and is agreeable plan. All questions answered. Author Nirmal Garcia [facility]ored[facility] 2024 11:25amIn summary the patient is a 70-year-old male with a history of having had lumbar laminectomy was done in 1980 and Crissy presents to clinic today with chief complaints of isolated axial lumbar back pain that improves in the supine position. He states that he did at 1 point have right lower extremity radiculopathy which gradually abated. He tells me he has had this back pain ever since his surgery 1980 having done a nonoperative route with therapy and injections with only minimal relief. He states that he does have some weakness with his right dorsiflexion which was called to his attention today which he thinks has been there chronically. At this time independent reviewed an MRI that he completed date of service is June 17, 2025. I also reviewed the MRI with him as well that although it is a supine film that he has loss of lumbar lordosis which I suspect when he is in an upright posture that his lumbar spine will be sagittally malaligned. In the better show this I do want obtain standing upright 30 such as scoliosis films as well as obtaining flexion-extension films. Will obtain a CAT scan of his lumbar spine given his postsurgical results in the last obtain an EMG of his right lower extremity given the weakness that he has. I did review the MRI where he does have significant right L5-S1 foraminal stenosis which this could be playing a role into why he has right dorsiflexion weakness but again he states that the symptoms are thought to be chronic as he once had right lower extremity radiculopathy which gradually abated. His chief complaint at this time is back pain. Once the EMG x-rays and the CAT scan are completed like to see him back. Again the x-ray should include flexion-extension views of the lumbar spine and a standing scoliosis film. All questions were answered to the satisfaction of the patient is in agreement the above plan. Future Tests Future scheduled test information is unavailable Pending Tests Test Name Ordered Date Scheduled Date MR head/brain wo/w con June 01, 2025 5:54pm MR lumbar spine wo conAugust 2024 5:53pmXR lumbar spine 6V w bending August 08, 2025 10:36amCT lumbar spine wo conOct2024 10:36am Future Visits Future appointment information is unavailable Future Procedures Procedure Name Ordered Date Scheduled Date XR scoliosis 1V August 08, 2025 10:36am Future Medications Future medication information is unavailable Patient Instructions Patient instructions are unavailable
--- OUTSIDE RECORDS SUMMARY | 2025-08-30 12:43 | XMS_ITS | Clinical Summary ---
Author Organization [facility] Healthcare Address [address] [facility] [place] [address] Care Team Providers Care It Support Consultant Name Role Phone Mitul Richmond MD Unavailable [phone] America Mercado Unavailable [phone] Mitul Richmond MD Primary Care Provider [phone] Venita Rosas RN Unavailable [phone] Allergies Active AllergyReactionsCriticalityNoted DateCommentsBee IxdgfuHchgdys44/05/2023 Gvylnnbof33/22/7863TztfkalrqelcrKjsamyr86/05/1402Hqpsvexa29/28/2024Varenicline High06/15/2025 Suicidal Ideations Duloxetine Hcl8118TcbgmenavqBwhydkyIffw32/22/2024 Anger, doesn't know where he is Zqsldnyytmjlm14/28/2024 Medications MedicationSigDispense QuantityRefillsLast FilledStart DateEnd DateStatus furosemide (Lasix) 20 MG tablet Take 20 mg by mouth Daily10/30/2023ctive acetaminophen (Tylenol Extra Strength) 500 MG tablet Take 500 mg by mouth every 6 (six) hours if needed for mild painActive diphenhydrAMINE (BENADryl) 25 MG capsule Take 25 mg by mouth at bedtimeActive lisinopril 20 MG tablet Indications:Primary hypertensionTAKE 1 TABLET (20MG) BY MOUTH AT NOON BEFORE A MEAL 30 tablet 5Active simvastatin (Zocor) 40 MG tablet Indications:Mixed hyperlipidemia,Hypertension, unspecified typeTAKE 1 TABLET BY MOUTH IN THE MORNING 30 tablet 5Active tiZANidine (Zanaflex) 4 MG tablet Indications:Right lumbar radiculopathyTAKE 2 TABLETS BY MOUTH EVERY 8 HOURS NEEDED FOR MUSCLE SPASMS 60 tablet 5Active EPINEPHrine (AUVI-Q) 0.15 mg/0.15 mL IJ solution auto-injector injection Indications:Bee sting allergyInject 0.3 mL (0.3 mg) into the shoulder, thigh, or buttocks if needed for wxoylbhogpt76/24/2025Active albuterol HFA 90 mcg/act inhaler Indications:Chronic obstructive pulmonary disease, unspecified COPD type (HCC) Inhale 2 puffs every 4 (four) hours if needed for wheezing 18 g 5Active phenytoin ER (Dilantin) 100 MG capsule Indications:Localization-related epilepsy (HCC)TAKE ONE (1) CAPSULE BY MOUTH IN THE MORNING, IN THE EVENING, AT BEDTIME 90 capsule 5Active primidone (Mysoline) 50 MG tablet Indications:Essential tremorTAKE 2 TABLETS BY MOUTH IN THE MORNING, TAKE 1 TABLET IN THE AFTERNOON, AND TAKE 2 TABLETS AT BEDTIME 150 tablet 5Active meloxicam (Mobic) 7.5 MG tablet Take 7.5 mg by mouth Daily as needed for mild pain or moderate pain QTY 14 tabs 5Active fluticasone (Flonase) 50 MCG/ACT nasal spray Indications:Allergic rhinitis, unspecified seasonality, unspecified trigger INSTILL TWO (2) SPRAYS IN EACH NOSTRIL DAILY 16 g 5Active venlafaxine XR (Effexor XR) 150 MG 24 hr capsule Indications:Depressive disorderTAKE 1 CAPSULE BY MOUTH ONCE DAILY 90 capsule 5Active pantoprazole (ProtoNix) 40 MG EC tablet Indications:Gastro-esophageal reflux disease without esophagitisTAKE 1 TABLET BY MOUTH EVERY MORNING 30 tablet 5Active ARIPiprazole (Abilify) 2 MG tablet Indications:Major depressive disorder with single episode, remission status unspecifiedTAKE 1 TABLET BY MOUTH DAILY 90 tablet 5Active pregabalin (Lyrica) 150 MG capsule Indications:Lumbar radiculopathy,Degenerative disc disease at L5-S1 levelTake 1 capsule (150 mg) by mouth in the morning and 1 capsule (150 mg) in the evening and 1 capsule(150 mg) before bedtime. 90 capsule 5Active tamsulosin (Flomax) 0.4 MG 24 hr capsule Indications:Benign localized prostatic hyperplasia with lower urinary tract symptoms (LUTS)TAKE 1 CAPSULE BY MOUTH EVERY MORNING 100 capsule 3075Active Breztri Aerosphere 160-9-4.8 MCG/ACT aerosol Indications:Panlobular emphysema (HCC),Simple chronic bronchitis (HCC)INHALE TWO (2) PUFFS IN THE MORNING AND INHALE TWO (2) PUFFS BEFORE BEDTIME 10.7 g 1105Active mupirocin (Bactroban) 2 % ointment Indications:Ingrown hairAPPLY TO THE AFFECTED AREA topically THREE TIMES DAILY (IN THE MORNING, IN THE EVENING, and BEFORE bedtime) for TEN days 22 g 5Active venlafaxine XR (Effexor XR) 75 MG 24 hr capsule Indications:Depressive disorderTAKE 1 CAPSULE BY MOUTH DAILY 100 capsule 5Active sildenafil (Viagra) 50 MG tablet Indications:Erectile dysfunction, unspecified erectile dysfunction typeTake 1 tablet (50 mg) by mouth Daily as needed for erectile dysfunction 8 tablet 5Active HYDROcodone-acetaminophen (Coyote) 10-325 MG tablet Indications:Degenerative disc disease at L5-S1 levelTake 2 tablets by mouth every 6 (six) hours if needed for severe pain 120 tablet 5Active PHENobarbital (Luminal) 32.4 MG tablet Indications:Localization-related epilepsy (HCC)Take 1 tablet (32.4 mg) by mouth in the morning and 1 tablet (32.4 mg) in the evening and 1 tablet (32.4 mg) before bedtime. 90 tablet 5Active HYDROcodone-acetaminophen (Coyote) 10-325 MG tablet Indications:Degenerative disc disease at L5-S1 levelTake 2 tablets by mouth every 6 (six) hours if needed for severe pain for up to 15 days 120 tablet 51Discontinued(Reorder) PHENobarbital (Luminal) 32.4 MG tablet Indications:Localization-related epilepsy (HCC)Take 1 tablet (32.4 mg) by mouth in the morning and 1 tablet (32.4 mg) in the evening and 1 tablet (32.4 mg) before bedtime. 90 tablet Discontinued(Reorder) Active Problems ProblemNoted DateDiagnosed DateMajor depressive disorder, recurrent, in remission, dtkgkieshls07/08/2025Other chronic pain03/15/2025Lumbar spondylosis 03/15/20247518Tsdgtg19/27/2024Lumbar vpbnfqvanchav70/27/2024DD (degenerative disc disease), zmxqvy5703/15/2024 Overview (03/15/2024): The patient was found to have significant degenerative changes in the lumbar spine with moderate tosevere arthritic changes and neural foraminal changes noted. Causative for the patient's radicular symptoms. PLAN: - See above. Lumbosacral portpshkwgvbk13/27/2024 Overview (03/15/2024): Lumbosacral radiculopathy could not be excluded on BLE EMG from 11/12/19 but is clinically present and consistent with the patient's lumbar spine MRI findings. The patient has bilateral low back pain and lower extremity weakness. He has tried conservative measures including home-directed therapy exercises, narcotic medications previously prescribed by another physician, and OTC medications withoutsuccess. Bilateral L4 epidural injections have provided benefit [...] the patient would like to proceed. Gait /27/2024 Overview (03/15/2024): Chronic gait instability. This is likely multifactorial, related to lumbosacral radiculopathy, polyneuropathy, and generalized deconditioning. The patient was previously referred to PT but did not follow through due to transportation issues. PLAN: - Plan as above - Fall precautions discussed in detail - I encouraged regular use of a walker to help with stability Diabetic peripheral neuropathy associated with type 2 diabetes mellitus 10/31/2023bnormal gait03/24/2023alance /05/2023enign localized prostatic hyperplasia with lower urinary tract symptoms (LUTS)03/24/2023hronic otitis externa of left ear03/24/2023OPD (chronic obstructive pulmonary disease) 03/24/2023egenerative disc disease at L5-S1 level03/24/2023epressive disorder 03/24/2023Essential bxcito3003/24/2023 Overview (03/15/2024): The patient has a history of essential tremor managed with primidone. Tremor has subjectively worsened recently, and he reports ongoing difficulty with writing/coloring. Very mild tremor appreciated on clinical exam today. Consideration also given to possible side effect to Abilify and this was disc ussed with the patient today. PLAN: - Increase primidone 50mg PO to 2 tablets in the am, 1 tablet in the afternoon, and 2 tablets at bedtime. - I would avoid propranolol in the setting of respiratory condition - Already on lyrica [place] oziqjwnowb02/05/2023astro-esophageal reflux disease without esophagitis 03/24/2023Hand mkxopw9903/24/2023Hemorrhoids, kfordhqg49/05/2023Hiatal hernia 03/24/20231337Gvugncqovmzx90/05/3101Bwzqmtavomkn48/05/2023IGT (impaired glucose tolerance)03/24/2023Localization-related /05/2023Lumbosacral neuritis 03/24/2023Migraine, unspecified, not intractable, without status migrainosus 03/24/2023Mixed qeudubiqxzkvkt86/05/8769Plfaklmnmflphs94/05/2023 Overview (03/15/2024): The patient has polyneuropathy as identified on BLE EMG from 10/2019 (severe, axonal loss). He has paresthesias in the bilateral feet and diminished distal BLE sensation on clinical examination. History of DM which is likely causative. I suspect that sensory changes are also affecting the patient's gait and instability. PLAN: - Plan as above Primary osteoarthritis involving multiple ewfnnz1903/24/2023Recurrent acute wwekkdzna53/05/2023Right lumbar brrbonsdavbkb45/05/2023Seizure disorder 03/24/2023 Overview (03/15/2024): The patient reports a history of seizure disorder which is stable and well controlled. Previous work-up for this is not available to me. His most recent seizure was in 1992 and described as generalized tonic-clonic. PLAN: - Currently taking phenobarbitol and phenytoin (prescribed by PCP) with no reported side effects. Simple chronic pixnvkpzpx50/05/2023Tobacco xljduybzvj94/05/2023Tubulovillous adenoma of colon03/24/2023Visual aexkzijmsd38/05/2023 Resolved Problems ProblemNoted DateDiagnosed DateResolved VrqmXpomzyns52/27/202411/09/2024Migraine /ack pain/0982Gmpagjzj64/27/20231020/09/2024 Otitis sltybnh21/09/2024Type 2 diabetes mellitus with other skin wjmwqmtzitdzp18/05/202307/ Encounters DateTypeDepartmentCare PfrjOctlsxycyyf95/27/2025[facility] [address] [place] [address] Mitul Richmond MD Localization-related epilepsy (HCC)08/11/2025Telephone [facility] [address] [place] [address] Mitul Richmond MD ifeqclog62/23/2025Patient Outreach [facility] [address] [place] [address] Venita Rosas, CODY 08/09/2025[facility]stract [facility] [address] [place] [address] Mitul Richmond MD 08/08/2025bstract [facility] [address] [place] [address] Mitul Richmond MD 08/02/2025bstract [facility] [address] [place] [address] Mitul Richmond MD 08/01/2025Refill [facility] [address] [place] [address] Mitul Richmond MD Degenerative disc disease at L5-S1 level07/19/2025bstract [facility] [address] [place] [address] Mitul Richmond MD 07/18/2025Refill [facility] [address] [place] [address] America Mercado PA Localization-related epilepsy (HCC)07/18/2025Refill [facility] [address] [place] [address] Mitul Richmond MD Localization-related epilepsy (HCC)07/12/2025bstract [facility] [address] [place] [address] Mitul Richmond MD 07/12/2025Patient Outreach [facility] [place] [address] [place] [address] Venita Rosas RN 07/06/2025bstract [facility] [address] [place] [address] Mitul Richmond MD 07/04/2025Telephone [facility] [address] [place] [address] Mitul Richmond MD Med Wnqgjh1606/29/2025Telephone [facility] [address] [place] [address] America Mercado PA fyxuiaik15/10/2025Refill [facility] [address] [place] [address] America Mercado PA Depressive /08/2025 2:00 PM EDTOffice Visit [facility] [address] [place] [address] America Mercado, PA Ingrown hair (Primary Dx); Fall, initial encounter; Gait instability; Major depressive disorder, recurrent, in remission, acaijroftey45/08/2025Refill [facility] [address] [place] [address] America Mercado, FRANCO Ingrown hair06/27/2025amboo flowsheet [facility] [address] [place] [address] America Mercado PA 06/27/20258954Aptgvf54/29/2025linisync Result Encounter NOMS External Department Unsolicited Provider, Generic External Data 06/17/2025linisync Result Encounter NOMS External Department Unsolicited Provider, Generic External Data 06/17/2025linisync Result Encounter NOMS External Department Unsolicited Provider, Generic External Data 06/15/2025 2:00 PM EDTOffice Visit [facility] [place] [facility] [address] [place] [address] America Mercado, FRANCO Degenerative disc disease at L5-S1 level (Primary Dx); Localization-related epilepsy (HCC); Tobacco dependence; Falls frequently; Gait instability; Panlobular emphysema (HCC)06/15/2025amboo flowsheet [facility] [place] [facility] [address] [place] [address] America Mercado PA 06/15/20257316Xxuzbn03/26/2025Refill [facility] [address] [place] [address] Mitul Richmond MD Localization-related epilepsy (HCC)06/13/2025bstract [facility] [address] [place] [address] Mitul Richmond MD 06/10/2025Patient Outreach [facility] [place] [address] [place] [address] Venita Rosas RN 06/02/2025bstract [facility] [address] [facility] [address] [place] [address] Mitul Richmond MD 05/30/2025bstract [facility] [address] [place] [address] Mitul Richmond MD from Last 3 Months Immunizations ImmunizationAdministration DatesNext DueInfluenza, High Dose Seasonal, Preservative Free2020,06/14/2020Influenza, High-dose Seasonal, Quadrivalent, Preservative Free08/31/2024,08/08/2023Influenza, Seasonal, Quadrivalent, Quhkjqnqmq73/04/2022Influenza, injectable, MDCK, preservative free, ynhjfodgtjbo80/29/2019Influenza, injectable, quadrivalent, preservative free06/27/2021Influenza, seasonal, injectable, preservative free10/20/2016, 08/15/2015Influenza, seasonal, intradermal, preservative free07/16/2018, 09/04/2017,06/22/2014Pfizer Ziegler Cap SARS-CoV-2 Lqzfhnjovlm15/26/2023 Pneumococcal Conjugate PCV 13011/22/2020,2013Pneumococcal Conjugate PCV 20 3Pneumococcal Polysaccharide YYGR9767RSV, recombinant, protein subunit RSVpreF, adjuvant reconstitu, 120mcg/0.5mL, PF (Arexvy)09/10/2023Zoster, Facoadskiid77/11/2020,06/14/2020max Hopper03/22/2014 Family History Medical HistoryRelationNameCommentsNo Known ProblemsFatherArthritisMotherHeart diseaseMotherHypertensionMotherHypertensionOtherRelationNameStatusCommentsFather DeceasedMotherAliveOther Social History Tobacco UseTypesPacks/DayYears UsedDateSmoking Tobacco: Every DayCigarettes0.315 Smokeless Tobacco: Never Tobacco Cessation:Ready to Q uit: Not Asked; Counseling Given: Yes Comments:Smoking 7 cigars a day as of 05/25/2024 and vapes. H/o 1 PPD Alcohol UseStandard Drinks/WeekCommentsNever0 (1 standard drink = 0.6 oz pure alcohol)PHQ-2AnswerDate RecordedPatient Health Questionnaire-2 Gjoit956 Sex and Gender InformationValueDate RecordedSex Assigned at BirthNot on file Legal WppGflp9001/01/2023 7:20 PM EDTGender IdentityNot on fileSexual Orientation Not on file Last Filed Vital Signs Vital SignReadingTime TakenCommentsBlood Cqqmmepr182/7609 1:55 PM EDT Idviu275706/27/2025 1:55 PM EDTTemperature--Respiratory Vzfx267706/27/2025 1:55 PM EDTOxygen Wbdcwercvx94%06/27/2025 1:55 PM EDTInhaled Oxygen Concentration-- Wdxafl99.4 kg (150 lb 12.8 oz)06/27/2025 1:55 PM FBFEfqmqn327.3 cm (5' 9 ) 06/27/2025 1:55 PM EDTBody Mass Index22.27006/27/2025 1:55 PM EDT Plan of Treatment DateTypeDepartmentCare Team (Latest Contact Info)Ceqppwbdozn54/18/2025 2:00 PM ESTOffice Visit [facility] [address] [facility] [address] [place] [address] America Mercado PA [address] [place] [address] 09/08/2025 2:50 PM ESTProcedure Visit [facility] [address] [place] [address] Frandy Avitia, MELO [address] [facility] [address] [place] [address] Health MaintenanceDue DateLast DoneCommentsCT Kmduahsmdpgm1955FIT-DNA 1955FIT1955FOBT1955 4607Foiiwxmmhjqtw1956Diabetes: Urine Protein Pjhauwyze98/, 05/04/2020, 01/20/2019, Additional history existsDiabetes: Hemoglobin A1C508/03/2024, 11/24/2023, 06/06/2023, Additional history existsDiabetes: Retinopathy Kqxynxpdr67/27/2025 04/15/2023, 03/28/2022, 01/18/2021, Additional history existsCOVID-19 Vaccine ( season), 08/14/2023, 02/21/2022, Additional history existsInfluenza Vaccine (#1)/09/2024, 08/08/2023, 08/23/2022, Additional history sbonvqAwlvzolzwpm90/02/944261/olorectal Cancer Dborvpuco34/02/2031Pneumococcal Vaccine: 65+ QhcpaNycxodhvj53/22/2023, 11/22/2020, 2013, Additional history exists Procedures Procedure NamePriorityDate/TimeAssociated DiagnosisCommentsMRI HEAD/BRAIN WO/W CONTR06/17/2025 4:41 PM EDT MR LUMBAR SPINE WO CON06/17/2025 4:29 PM EDT [facility] MVYHZYLTXGDvfsujk09/29/2025 12:40 PM EDT POCT GLYCATED HEMOGLOBIN, WQRRNTaddbde26/06/2024 1:32 PM EDT Diabetic peripheral neuropathy associated with type 2 diabetes mellitus (HCC) DIABETIC RETINOPATHY SCREENING - OU - BOTH DMXAYydyrse94/27/2023 MICROALBUMIN / CREATININE URINE PFKHYSusvlqq06/15/2021 ADVRDYNSDLWKuadsss33/02/2021 12:00 PM EDT from Last 3 Months or Most Recently Relevant to Health Maintenance Results * MRI HEAD/BRAIN WO/W CONTR (06/17/2025 4:41 PM EDT)Anatomical RegionLaterality ModalityRadiographic ImagingSpecimen (Source)Anatomical Location / Laterality Collection Method / VolumeCollection TimeReceived Time06/17/2025 4:41 PM EDT Narrative 06/17/2025 4:[address] [facility] ?[address] ? [place] [address] ? Magnetic Resonance Report ? Signed ? Patient: KAYDENDUTCH Sr. ?MR#: [id number] ?? : 1955 ?Acct:[id number] ?? Age/Sex: 69 / M ?ADM Date: 06/17/25 ?? Loc: LAB ? Attending Dr: Gene Bragg [employer] ? Ordering Physician: Gene Bragg [employer] ?? Date of Service: 06/17/25 ?? Procedure(s): MR head/brain wo/w con ?? Accession Number(s): [id number] ? cc: MITUL RICHMOND ; Gene Bragg [employer] ? [facility] ? [address] ? [place] [address] ? Patient Name: ?? DUTCH Garcia KAYDEN ? MRN: [id number] ? date: 1955 ?Sex: M ?? Assigned Patient Location: LAB ?? Current Patient Location: LAB ?? Accession/Order Number: [id number] ?? Exam Date: 06/17/2025 ??13:15 ?Report Date: 06/17/2025 ??16:41 ? At the request of: ?? GENE ??YEMI ??[employer] ? Procedure: ??MR head/brain wo/w con ? MR head/brain wo/w con ??06/17/2025 3:02 PM ? SIGN AND SYMPTOMS: ?? Unsteady Gait, Migraine Without Aura ? PROTOCOL: Multiplanar multisequence MR images of the brain with and without IV ?? contrast ? CONTRAST: 13 mL of intravenous Dotarem ? COMPARISON: 09/12/2023 ? FINDINGS: ? Extra axial spaces: There is diffuse age-related cortical atrophy which is ?? focally greatest along the frontal lobes bilaterally. ?? Hemorrhage: None. ?? Ventricular system: Within normal limits. ?? Basal cisterns: Within normal limits and not effaced. ?? Cerebral parenchyma: Periventricular and subcortical white matter T2 and FLAIR ?? hyperintense signal is noted consistent with chronic microvascular ischemic ?? change.. ??No abnormal postcontrast enhancement. ?? Midline shift: None.. ?? Cerebellum: Within normal limits. ?? Brainstem: T2 and T2 FLAIR hyperintense signal is noted throughout the moreno. ? OTHER: ? Calvarium: Normal marrow signal. ?? Vascular system: Satisfactory flow voids within the anterior and posterior ?? circulation. ?? Visualized Paranasal sinuses: There is partial opacification of the left ?? maxillary sinus. ??Polypoid mucosal thickening is noted in the left sphenoid ?? sinus with mucosal thickening in the ethmoid air cells bilaterally. ?? Visualized Orbits: Hyperintense signal is noted on T1 weighted imaging within ?? the left globe. ??The left globe is mildly atrophic. ??This is chronic in ?? nature. ?? Visualized upper cervical spine: Within normal limits. ?? Sella and skull base: Within normal limits. ? MR/MR head/brain wo/w con ?? IMPRESSION: ? No acute intracranial pathology or abnormal postcontrast enhancement. ? Chronic age-related neurodegenerative changes are noted with atrophy focally ?? greatest along the frontal lobes bilaterally. ? Impression dictated by: Walt Almendarez M.D. ??06/17/2025 4:41 PM ? Dictation Location: RADIO-PC-17 ? Electronically authenticated by: [id number] ??Y ?? Date: 06/17/2025 ??16:41 ? Dictated By: ?Walt Almendarez M.D. ? Signed By: ?06/17/25 1644 ? DD/ 40 ? TD/TT: ? Powder Shoveler: Procedure Note Radiology, Radiologist, MD - 06/17/[address] [address] Magnetic Resonance Report Signed Patient: DUTCH SANCHEZ Sr.MR#: [id number] : 1955cct:[id number] Age/Sex: 69 / MADM Date: 06/17/25 Loc: LAB Attending Dr: Gene Bragg NP Ordering Physician: Gene Bragg NP Date of Service: 06/17/25 Procedure(s): MR head/brain wo/w con Accession Number(s): [id number] cc: MITUL RICHMOND ; Gene Bragg NP [place] [address] Patient Name: DUTCH SANCHEZ MRN: [id number] date: 1955 Sex: M Assigned Patient Location: LAB Current Patient Location: LAB Accession/Order Number: [id number] Exam Date: 06/17/2025 13:15 Report Date: 06/17/2025 16:41 At the request of: GENE BRAGG NP Procedure: MR head/brain wo/w con MR head/brain wo/w con 06/17/2025 3:02 PM SIGN AND SYMPTOMS: Unsteady Gait, Migraine Without Aura PROTOCOL: Multiplanar multisequence MR images of the brain with andwithout IV contrast CONTRAST: 13 mL of intravenous Dotarem COMPARISON: 09/12/2023 FINDINGS: Extra axial spaces: There is diffuse age-related cortical atrophy which is focally greatest along the frontal lobes bilaterally. Hemorrhage: None. Ventricular system: Within normal limits. Basal cisterns: Within normal limits and not effaced. Cerebral parenchyma: Periventricular and subcortical white matter T2 andFLAIR hyperintense signal is noted consistent with chronic microvascularischemic change.. No abnormal postcontrast enhancement. Midline shift: None.. Cerebellum: Within normal limits. Brainstem: T2 and T2 FLAIR hyperintense signal is noted throughout thepons. OTHER: Calvarium: Normal marrow signal. Vascular system: Satisfactory flow voids within the anterior and posterior circulation. Visualized Paranasal sinuses: There is partial opacification of the left maxillary sinus. Polypoid mucosal thickening is noted in the leftsphenoid sinus with mucosal thickening in the ethmoid air cells bilaterally. Visualized Orbits: Hyperintense signal is noted on T1 weighted imagingwithin the left globe. The left globe is mildly atrophic. This is chronic in nature. Visualized upper cervical spine: Within normal limits. Sella and skull base: Within normal limits. MR/MR head/brain wo/w con IMPRESSION: No acute intracranial pathology or abnormal postcontrast enhancement. Chronic age-related neurodegenerative changes are noted with atrophyfocally greatest along the frontal lobes bilaterally. Impression dictated by: Walt Almendarez M.D. 06/17/2025 4:41 PM Dictation Location: [place] [address] Electronically authenticated by: [id number] Y Date: 6:41 Dictated By: Walt Almendarez M.D. Signed By:06/17/254 DD/ 40 TD/TT: Powder Shoveler: Authorizing ProviderResult TypeResult StatusGeneric External Data ProviderIMG XR PROCEDURESFinal Result * MR LUMBAR SPINE WO CON (06/17/2025 4:29 PM EDT)Anatomical RegionLaterality ModalityOtherSpecimen (Source)Anatomical Location / LateralityCollection Method / VolumeCollection TimeReceived Time06/17/2025 4:29 PM EDT Narrative 06/17/2025 4:[address] [facility] ?[address] ? [place] [address] ? Magnetic Resonance Report ? Signed ? Patient: DUTCH SANCHEZ Sr. ?MR#: [id number] ?? : 1955 ?Acct:[id number] ?? Age/Sex: 69 / M ?ADM Date: 06/17/25 ?? Loc: LAB ? Attending Dr: Gene Bragg [employer] ? Ordering Physician: Gene Bragg [employer] ?? Date of Service: 06/17/25 ?? Procedure(s): MR lumbar spine wo con ?? Accession Number(s): [id number] ? cc: MITUL RICHMOND ; Gene Bragg SUPERVISOR [employer]WING [employer]SEMBLY ? [facility] ? [address] ? [place] [address] ? Patient Name: ?? DUTCH SANCHEZ ? MRN: [facility]:[id number] ? date: 1955 ?Sex: M ?? Assigned Patient Location: LAB ?? Current Patient Location: LAB ?? Accession/Order Number: [id number] ?? Exam Date: 06/17/2025 ??13:15 ?Report Date: 06/17/2025 ??16:29 ? At the request of: ?? GENE ??YEMI ??SUPERVISOR [employer]WING [employer] ASSEMBLY ? Procedure: ??MR lumbar spine wo con ? MR lumbar spine wo con ??06/17/2025 3:01 PM ? SIGNS AND SYMPTOMS: Chronic low back pain affecting the lower extremities ? PROTOCOL: Multiplanar multisequence MR images of the lumbar spine without IV ?? contrast ? COMPARISON: 07/21/2024 ? FINDINGS: There is straightening of the normal lumbar lordosis. ??The bones are ?? otherwise in anatomic alignment. There is preservation of vertebral body ?? heights. ??There is severe disc height loss at L5-S1. ??There is moderate disc ?? height loss at L2-L3 and L3-4 with mild disc height loss at L1-L2 and L4-5. ? There is Modic type I endplate edema at L3-L4 and L5-S1. ??The conus terminates ?? at the inferior endplate of the L1 vertebral body level. No epidural or ?? paraspinous fluid collection is appreciated. ? At T12-L1: There is a normal disc, central canal, and neural foramen. ? At L1-L2: There is a normal disc, central canal, and neural foramen. ? At L2-L3: There is a broad-based disc bulge. ??There is a focal left foraminal ?? disc protrusion. ??There is moderate left neural foraminal narrowing with mild ?? right neural foraminal narrowing. ??No significant spinal canal narrowing. ? This is unchanged. ? At L3-L4: There is a broad-based disc bulge with facet hypertrophy. ??There is ?? mild spinal canal stenosis with moderate to severe left and moderate right ?? neural frontal stenosis. ??This is unchanged. ? At L4-L5: There is a circumferential disc bulge with facet hypertrophy and ?? ligamentum flavum thickening. ??There is moderate spinal canal stenosis with ?? severe bilateral neural foraminal narrowing and mass effect on the exiting L4 ?? nerve roots bilaterally. ??This is unchanged. ? At L5-S1: There is a circumferential disc bulge with endplate osteophyte ?? formation. ??There is facet hypertrophy. ??There is mild spinal canal narrowing ?? with severe right and moderate severe left neural foraminal narrowing. ??Is ?? mass effect on the exiting L5 nerve roots bilaterally, right greater than ?? left. ??This is unchanged. ? MR/MR lumbar spine wo con ?? IMPRESSION: ? At L3-L4: There is a broad-based disc bulge with facet hypertrophy. ??There is ?? mild spinal canal stenosis with moderate to severe left and moderate right ?? neural frontal stenosis. ??This is unchanged. ? At L4-L5: There is a circumferential disc bulge with facet hypertrophy and ?? ligamentum flavum thickening. ??There is moderate spinal canal stenosis with ?? severe bilateral neural foraminal narrowing and mass effect on the exiting L4 ?? nerve roots bilaterally. ??This is unchanged. ? At L5-S1: There is a circumferential disc bulge with endplate osteophyte ?? formation. ??There is facet hypertrophy. ??There is mild spinal canal narrowing ?? with severe right and moderate severe left neural foraminal narrowing. ??Is ?? mass effect on the exiting L5 nerve roots bilaterally, right greater than ?? left. ??This is unchanged. ? Impression dictated by: Walt Almendarez M.D. ??06/17/2025 4:29 PM ? Dictation Location: [place] [address] ? Electronically authenticated by: [id number] ??Y ?? Date: 06/17/2025 ??16:29 ? Dictated By: ?aWlt Almendarez M.D. ? Signed By: ?06/17/25 1632 ? DD/ 1629 ? TD/TT: ? Powder Shoveler: Procedure Note Radiology, Radiologist, MD - 06/17/2025 [place] [address] Magnetic Resonance Report Signed Patient: DUTCH SANCHEZ Sr.MR#: [id number] : 6Acct:[id number] Age/Sex: 69 / MADM Date: 06/17/25 Loc: LAB Attending Dr: Gene Bragg SUPERVISOR [employer]BL[employer] Ordering Physician: Gene Bragg NP Date of Service: 06/17/25 Procedure(s): MR lumbar spine wo con Accession Number(s): [id number] cc: MITUL RICHMOND ; Gene Bragg NP The [place] [id number] Patient Name: DUTCH SANCHEZ MRN: [facility]:[id number] date: 1955 Sex: M Assigned Patient Location: LAB Current Patient Location: LAB Accession/Order Number: [id number] Exam Date: 06/17/2025 13:15 Report Date: 06/17/2025 16:29 At the request of: GENE BRAGG NP Procedure: MR lumbar spine wo con MR lumbar spine wo con 06/17/2025 3:01 PM SIGNS AND SYMPTOMS: Chronic low back pain affecting the lower extremities PROTOCOL: Multiplanar multisequence MR images of the lumbar spine withoutIV contrast COMPARISON: 07/21/2024 FINDINGS: There is straightening of the normal lumbar lordosis. The bonesare otherwise in anatomic alignment. There is preservation of vertebral body heights. There is severe disc height loss at L5-S1. There is moderatedisc height loss at L2-L3 and L3-4 with mild disc height loss at L1-L2 andL4-5. There is Modic type I endplate edema at L3-L4 and L5-S1. The conusterminates at the inferior endplate of the L1 vertebral body level. No epidural or paraspinous fluid collection is appreciated. At T12-L1: There is a normal disc, central canal, and neural foramen. At L1-L2: There is a normal disc, central canal, and neural foramen. At L2-L3: There is a broad-based disc bulge. There is a focal leftforaminal disc protrusion. There is moderate left neural foraminal narrowing withmild right neural foraminal narrowing. No significant spinal canal narrowing. This is unchanged. At L3-L4: There is a broad-based disc bulge with facet hypertrophy. Thereis mild spinal canal stenosis with moderate to severe left and moderate right neural frontal stenosis. This is unchanged. At L4-L5: There is a circumferential disc bulge with facet hypertrophy and ligamentum flavum thickening. There is moderate spinal canal stenosiswith severe bilateral neural foraminal narrowing and mass effect on the exitingL4 nerve roots bilaterally. This is unchanged. At L5-S1: There is a circumferential disc bulge with endplate osteophyte formation. There is facet hypertrophy. There is mild spinal canalnarrowing with severe right and moderate severe left neural foraminal narrowing. Is mass effect on the exiting L5 nerve roots bilaterally, right greater than left. This is unchanged. MR/MR lumbar spine wo con IMPRESSION: At L3-L4: There is a broad-based disc bulge with facet hypertrophy. Thereis mild spinal canal stenosis with moderate to severe left and moderate right neural frontal stenosis. This is unchanged. At L4-L5: There is a circumferential disc bulge with facet hypertrophy and ligamentum flavum thickening. There is moderate spinal canal stenosiswith severe bilateral neural foraminal narrowing and mass effect on the exitingL4 nerve roots bilaterally. This is unchanged. At L5-S1: There is a circumferential disc bulge with endplate osteophyte formation. There is facet hypertrophy. There is mild spinal canalnarrowing with severe right and moderate severe left neural foraminal narrowing. Is mass effect on the exiting L5 nerve roots bilaterally, right greater than left. This is unchanged. Impression dictated by: Walt Almendarez M.D. 06/17/2025 4:29 PM Dictation Location: [place] [address] Electronically authenticated by: [id number] Y Date: Dictated By: Walt Almendarez M.D. Signed By:06/17/25 1632 DD/ 1629 TD/TT: Powder Shoveler: Authorizing ProviderResult TypeResult StatusGeneric External Data Provider CLINISYNC IMAGINGFinal Result * (ABNORMAL) [facility] CREATININE (06/17/2025 12:40 PM EDT)ComponentValueRef RangeTest MethodAnalysis TimePerformed AtPathologist SignatureCREATININE0.63(L)0.70 - 1.30 mg/dLTBHTBH EGFR-AF RUSSIAN>60>=60 mL/min/1.73m 2TBHTBH EGFR-NON AF RUSSIAN>60>=60 mL/min/1.73m 2TBHSpecimen (Source)Anatomical Location / LateralityCollection Method / VolumeCollection TimeReceived Time06/17/2025 12:40 PM EDT06/17/2025 12:46 PM EDT Narrative CLINISYNC - 06/17/2025 12:53 PM EDT Authorizing ProviderResult TypeResult StatusGeneric External Data Provider CLINISYNCFinal ResultPerforming OrganizationAddressCity/State/ZIP CodePhone Number CLINISYNC [facility] * POCT Glycated hemoglobin, total (05/25/2024 1:32 PM EDT)ComponentValueRef RangeTest MethodAnalysis TimePerformed AtPathologist SignatureHemoglobin A1C 4.9Specimen (Source)Anatomical Location / LateralityCollection Method / Volume Collection TimeReceived AqemStqmo93/06/2024 1:32 PM EDT Narrative Authorizing ProviderResult TypeResult StatusAmerica Mercado PAPOINT OF CARE TEST ENTER/EDIT ORDERABLESFinal Result * Diabetic Retinopathy Screening - OU - Both Eyes (04/15/2023)ComponentValueRef RangeTest MethodAnalysis TimePerformed AtPathologist SignatureRESULTSNDR Anatomical RegionLateralityModalityHeadOtherSpecimen (Source)Anatomical Location / LateralityCollection Method / VolumeCollection TimeReceived Time 04/15/2023 Narrative Authorizing ProviderResult TypeResult StatusHistorical Provider MDOPHTH PHOTOGRAPHYFinal Result * (ABNORMAL) Microalbumin / creatinine urine ratio (07/04/2021)ComponentValueRef RangeTest MethodAnalysis TimePerformed AtPathologist [id number] - 259 [facility] LABMALB<1.2(L)[facility] EXTER[facility] LABComment: Unable to calculate mALB/Crea ratio, mALB is <1.2 mg/dL mALB reference range not established. Specimen (Source)Anatomical Location / LateralityCollection Method / Volume Collection TimeReceived Time07/04/2021 Narrative Authorizing ProviderResult TypeResult StatusMitul PABON URINE ORDERABLESFinal ResultPerforming OrganizationAddressCity/State/ZIP CodePhone Number [facility] * Colonoscopy (03/21/2021 12:00 PM EDT)Anatomical RegionLateralityModality EndoscopySpecimen (Source)Anatomical Location / LateralityCollection Method / VolumeCollection TimeReceived Time03/21/2021 12:00 PM EDT Narrative 03/21/2021 12:00 PM EDT PERFORMED AT [facility] LOCATION:[id number] sessile villous adenoma - repeat in 3 years Procedure Note CONVERSION, GENERIC - 03/05/2023 PERFORMED AT [facility] LOCATION:[id number] sessile villous adenoma - repeat in 3 years Authorizing ProviderResult TypeResult StatusDaslade Richmond MDENDOSCOPY PROCEDURE ORDERABLESFinal Result from Last 3 Months or Most Recently Relevant to Health Maintenance Insurance Advance Directives TypeDate RecordedPatient RepresentativeExplanationPower of Attorney01/13/2025 2:27 PMHealthcare Power of AttorneyAdvance Directives and Living Will01/13/2025 2:27 PMLiving Will Declaration Care Teams Team MemberRelationshipSpecialtyStart DateEnd Mitul Richmond MD [address] [place] [address] PCP - ACO Reach03/13/23 Mitul Richmond MD [address] [place] [address] PCP - GeneralInternal Medicine07/07/24 America Mercado PA [address] [facility] [address] [place] [address] Physician AssistantFamily Medicine11/03/23 Venita Rosas, CODY [address] [facility] [address] [place] [address] Registered NurseFamily Medicine11/12/24
--- OUTSIDE RECORDS SUMMARY | 2025-08-30 12:43 | XMS_ITS | Encounter Summary ---
Author Organization [facility] Address [address] [place] [address] Care Team Providers Care Honey Grader And Blender Name Role Phone Mitul Richmond MD Unavailable [phone] America Mercado Unavailable [phone] Mitul Richmond MD Primary Care Provider [phone] Venita Rosas RN Unavailable [phone] Encounter Details DateTypeDepartmentCare Team (Latest Contact Info)Kfuflpgntag50/03/2024Clinisync Result Encounter [facility] External Department Unsolicited Maximo Walter, SKI PRODUCTION SUPERVISOR [address], [place] [address] Social History Tobacco UseTypesPacks/DayYears UsedDateSmoking Tobacco: Every DayCigarettes0.315 Smokeless Tobacco: Never Comments:Smoking 7 cigars a day as of 05/25/2024 and vapes. H/o 1 PPD Alcohol UseStandard Drinks/WeekCommentsNever0 (1 standard drink = 0.6 oz pure alcohol)PHQ-2AnswerDate RecordedPatient Health Questionnaire-2 [id number] Sex and Gender InformationValueDate RecordedSex Assigned at BirthNot on file Legal OelZqje8801/01/2023 7:20 PM EDTGender IdentityNot on fileSexual Orientation Not on filedocumented as of this encounter Functional Status * Over the past 2 weeks, how often have you been bothered by any of the following problems?QuestionAnswerDate of AssessmentAuthorLittle interest or pleasure in doing thingsNot at all06/27/2025 1:39 PM RONALDCamillaLeah Mine PSYCHOLOGIST PRIVATE PRACTICE Feeling down, depressed, or hopelessNot at all06/27/2025 1:39 PM Mine Christiansen ELIZABETNPatient Health Questionnaire-2 Amovp173 1:39 PM Mine Christiansen PSYCHOLOGIST PRIVATE PRACTICE documented as of this encounter Plan of Treatment DateTypeDepartmentCare Team (Latest Contact Info)Uskynisoazc59/18/2025 2:00 PM ESTOffice Visit [facility] [address] [place] [place] [phone] America Mercado PA [address] [facility] [address] [place] [address] 09/08/2025 2:50 PM ESTProcedure Visit [facility] [address] [facility] [address] [place] [phone] Frandy Avitia, MELO [address] [facility] 5 [place] [address] documented as of this encounter Procedures Procedure NamePriorityDate/TimeAssociated DiagnosisCommentsMR LUMBAR SPINE WO CON07/22/2024 7:46 AM EDT documented in this encounter Results * MR LUMBAR SPINE WO CON (07/22/2024 7:46 AM EDT)Anatomical RegionLaterality ModalityOtherSpecimen (Source)Anatomical Location / LateralityCollection Method / VolumeCollection TimeReceived Time07/22/2024 7:46 AM EDT Narrative 07/22/2024 7:51 AM EDT [facility] ?[address] ? [place] [address] ? Magnetic Resonance Report ? Signed ? Patient: DUTCH SANCHEZ Sr. ?MR#: [id number] ?? : 1955 ?Acct:[id number] ?? Age/Sex: 69 / M ?ADM Date: 07/21/24 ?? Loc: MRI ? Attending Dr: Maximo Walter SKI PRODUCTION SUPERVISOR ? Ordering Physician: Maximo Walter SKI PRODUCTION SUPERVISOR ?? Date of Service: 07/21/24 ?? Procedure(s): MR lumbar spine wo con ?? Accession Number(s): [id number] ? cc: MITUL RICHMOND ; Maximo Walter SKI PRODUCTION SUPERVISOR ? [facility] ? [address] ? [place] [address] ? Patient Name: ?? DUTCH SANCHEZ ? MRN: [facility]:[id number] ? date: 1955 ?Sex: M ?? Assigned Patient Location: MRI ?? Current Patient Location: ? Accession/Order Number: [id number] ?? Exam Date: 07/21/2024 ??14:00 ?Report Date: 07/22/2024 ??07:46 ? At the request of: ?? MAXIMO ??WENDY ? Procedure: ??MR lumbar spine wo con ? MR lumbar spine wo con, 07/21/2024 2:00 PM EDT ? INDICATION: Lumbar radiculopathy M54.16 ? COMPARISON: Prior x-ray of the lumbar spine dated 12/31/2019 ? TECHNIQUE: Multiplanar, multisequential MRI images of lumbar spine were ?? obtained without contrast. ? FINDINGS: ? For dictation purposes, the lowest complete disc space in the lumbar spine ?? considered as L5-S1. ? There is loss of normal physiologic lumbar lordosis. The vertebral height is ?? preserved. ? The conus medullaris is at the level of L1. No signal abnormality within the ?? visualized spinal cord is noted. ? Level of T12-L1 is unremarkable. ? At the level of L1-L2, there are disc bulge with mild left neuroforaminal ?? narrowing and no canal stenosis. ? At the level of L2-L3, there are disc bulge with mild left neuroforaminal ?? narrowing and no canal stenosis. ? At the level of L3-4, there are disc bulge with rnwb-vn-dkrklhly bilateral ?? neuroforaminal narrowing and mild canal stenosis. There are Modic type I ?? changes at the anterior aspect of L3-L4. There are facet joint arthrosis with ?? ligamentum flavum thickening contributing to canal stenosis. ? At the level of L4-5, there are disc bulge with severe bilateral ?? neuroforaminal ?? narrowing and moderate canal stenosis.There are facet joint arthrosis with ?? ligamentum flavum thickening contributing to canal stenosis. ? At the level of L5-S1, there are disc bulge with severe bilateral ?? neuroforaminal narrowing and mild canal stenosis. ? Bilateral S1 nerve roots are in close contact with the disc bulge in the ?? lateral recesses. ? The paraspinal muscles are unremarkable. ? MR/MR lumbar spine wo con ?? IMPRESSION: ? Moderate degenerative changes of lumbar spine in particular at L3-L4, L4-L5 ?? and ?? L5-S1. ? Electronically authenticated by: ANAHY ??PARVA ?? Date: 07/22/2024 ??07:46 ? Dictated By: ?Parva,Anahy M.D. ? Signed By: ?07/22/24 0751 ? DD/ 0746 ? TD/TT: ? Claims Adjudicator: Procedure Note Radiology, Radiologist, - 07/22/2024 The [place] [id number] Magnetic Resonance Report Signed Patient: DUTCH SANCHEZ Sr.MR#: [id number] : 1955cct:[id number] Age/Sex: 69 / MADM Date: 07/21/24 Loc: MRI Attending Dr: Maximo Walter SKI PRODUCTION SUPERVISOR Ordering Physician: Maximo Walter NP Date of Service: 07/21/24 Procedure(s): MR lumbar spine wo con Accession Number(s): [id number] cc: MITUL RICHMOND ; Maximo Walter NP [address] [address] Patient Name: DUTCH SANCHEZ MRN: [id number] date: 1955 Sex: M Assigned Patient Location: MRI Current Patient Location: Accession/Order Number: [id number] Exam Date: 07/21/2024 14:00 Report Date: 07/22/2024 [...] of L3-4, there are disc bulge with dmiu-ky-fzrsymhh bilateral neuroforaminal narrowing and mild canal stenosis. [...] M.D. Signed By:07/22/24 0751 DD/ 0746 TD/TT: Claims Adjudicator: Authorizing ProviderResult TypeResult StatusBrandy [facility]LINISYNC IMAGING Final Result documented in this encounter Visit Diagnoses Not on filedocumented in this encounter Care Teams Team MemberRelationshipSpecialtyStart DateEnd Date Mitul Richmond MD [address] [facility] [address] [place] [address] PCP - ACO Reach03/13/23 Mitul Richmond MD [address] [facility] [address] [place] [address] PCP - GeneralInternal Medicine07/07/24 America Mercado PA [address] [facility] 110 [place] [address] Physician AssistantFamily Medicine11/03/23 Venita Rosas, RN [address] [facility] [address] [place] [address] Registered NurseFamily Medicine11/12/24documented as of this encounter
--- OUTSIDE RECORDS SUMMARY | 2025-08-30 12:43 | XMS_ITS | Encounter Summary ---
Author Organization [facility] Address [address] [facility] [place] [address] Care Team Providers Care Front Office Manager Name Role Phone Mitul Richmond MD Unavailable [phone] America Mercado Unavailable [phone] Mitul Richmond MD Primary Care Provider [phone] Venita Rosas RN Unavailable [phone] Encounter Details DateTypeDepartmentCare Team (Latest Contact Info)Lgdtglwyppg92/06/2024Clinisync Result Encounter [facility] External Department Unsolicited Provider, Generic External Data Social History Tobacco UseTypesPacks/DayYears UsedDateSmoking Tobacco: Every DayCigarettes0.315 Smokeless Tobacco: Never Comments:Smoking 7 cigars a day as of 05/25/2024 and vapes. H/o 1 PPD Alcohol UseStandard Drinks/WeekCommentsNever0 (1 standard drink = 0.6 oz pure alcohol)PHQ-2AnswerDate RecordedPatient Health Questionnaire-2 Sfsfj409 Sex and Gender InformationValueDate RecordedSex Assigned at BirthNot on file Legal BboMalj4101/01/2023 7:20 PM EDTGender IdentityNot on fileSexual Orientation Not on filedocumented as of this encounter Functional Status * Over the past 2 weeks, how often have you been bothered by any of the following problems?QuestionAnswerDate of AssessmentAuthorLittle interest or pleasure in doing thingsNot at all06/27/2025 1:39 PM EDTVoss, Mine, CONTRACTOR GENERAL BUILDING Feeling down, depressed, or hopelessNot at all06/27/2025 1:39 PM EDMine Arellano LPNPatient Health Questionnaire-2 Ztnzb509 1:39 PM Mine Christiansen LPN documented as of this encounter Plan of Treatment DateTypeDepartmentCare Team (Latest Contact Info)Uasrbqwlgpy81/18/2025 2:00 PM ESTOffice Visit [facility] [address] [place] [phone] America Mercado PA [address] [place] [address] 09/08/2025 2:50 PM ESTProcedure Visit [facility] [address] [place] [phone] Frandy Avitia, DPJuan M [address] [facility] [address] [place] [address] documented as of this encounter Procedures Procedure NamePriorityDate/TimeAssociated DiagnosisCommentsXR ELBOW 3+ VIEWS LEFT05/25/2024 3:00 PM EDT documented in this encounter Results * XR elbow 3+ views left (05/25/2024 3:00 PM EDT)Anatomical RegionLaterality ModalityUpper Extremities, ElbowLeftRadiographic ImagingSpecimen (Source) Anatomical Location / LateralityCollection Method / VolumeCollection Time Received Time05/25/2024 3:00 PM EDT Narrative 05/25/2024 3:03 PM EDT [facility] ?[address] ? [place] [address] ?XRay Report ? Signed ? Patient: DUTCH SANCHEZ Sr. ?MR#: [id number] ?? : 1955 ?Acct:[id number] ?? Age/Sex: 68 / M ?ADM Date: 05/24/24 ?? Loc: EC ? Attending Dr: Mynor [place] M.D. ? Ordering Physician: Mynor [place] M.D. ?? Date of Service: 05/24/24 ?? Procedure(s): XR elbow LT min 3V ?? Accession Number(s): [id number] ? cc: MITUL RICHMOND,Mynor C M.D. ? [facility] ? [address] ? [place] [address] ? Patient Name: ?? DUTCH SANCHEZ ? MRN: [facility]:[id number] ? date: 1955 ?Sex: M ?? Assigned Patient Location: EC ?? Current Patient Location: ? Accession/Order Number: [id number] ?? Exam Date: 05/24/2024 ??11:25 ?Report Date: 05/25/2024 ??15:00 ? At the request of: ?? MYNOR WILSON ? Procedure: ??XR elbow LT min 3V ? PROCEDURE: XR elbow LT min 3V ? HISTORY: LEFT ELBOW PAIN ? COMPARISON: XR elbow left 11/24/2023 ? FINDINGS: ?? BONES:Prior mechanical fusion of supracondylar fracture of distal left humerus ? via bilateral plates and screws; no appreciable hardware fracture loosening. ?? Exuberant callus formation along the posterior margin. No appreciable ?? significant degenerative changes of the joint spaces. ?? SOFT TISSUES:Posterior soft tissue swelling. ?? EFFUSION:Suspect small joint effusion. ?? OTHER: Negative. ? XR/XR elbow LT min 3V ?? IMPRESSION: ? 1. Stable surgical changes without evidence of hardware failure or change in ?? alignment. ?? 2. No appreciable acute bone abnormality. ?? 3. Suspect small joint effusion and grossly stable posterior soft tissue ?? swelling. Bursitis?. ? Electronically authenticated by: MYNOR ??MADISON ?? Date: 05/25/2024 ??15:00 ? Dictated By: ?Mynor Moon M.D. ? Signed By: ?05/25/24 1503 ? DD/ 1500 ? TD/TT: ? Harvesting Contractor: Procedure Note Radiology, Radiologist, - 05/25/2024 [place] [address] XRay Report Signed Patient: DUTCH SANCHEZ .MR#: [id number] : 6Acct:[id number] Age/Sex: 68 / MADM Date: 05/24/24 Loc: EC Attending Dr: Mynor [place] M.D. Ordering Physician: Mynor [place] M.D. Date of Service: 05/24/24 Procedure(s): XR elbow LT min 3V Accession Number(s): [id number] cc: MITUL RICHMOND ; Mynor [place] M.D. The [place] [id number] Patient Name: DUTCH SANCHEZ MRN: [id number] date: 1955 Sex: M Assigned Patient Location: Current Patient Location: Accession/Order Number: [id number] Exam Date: 05/24/2024 11:25 Report Date: 05/25/2024 15:00 At the request of: MYNOR WILSON Procedure: [...] soft tissue swelling. Bursitis?. Electronically authenticated by: MYNOR MOON Date: 05/25/2024 15:00 Dictated By: Mynor Moon M.D. Signed By:05/25/24 1503 DD/ 1500 TD/TT: Harvesting Contractor: Authorizing ProviderResult TypeResult StatusGeneric External Data ProviderIMG XR PROCEDURESFinal Result documented in this encounter Visit Diagnoses Not on filedocumented in this encounter Care Teams Team MemberRelationshipSpecialtyStart DateEnd Date Mitul Richmond MD [address] [facility] [address] [place] [address] PCP - ACO Reach03/13/23 Mitul Richmond MD [address] [facility] [address] [place] [address] PCP - GeneralInternal Medicine07/07/24 America Mercado PA [address] [facility] [address] [place] [address] Physician AssistantFamily Medicine11/03/23 Venita Rosas, CODY [address] [facility] [address] [place] [address] Registered NurseFamily Medicine11/12/24documented as of this encounter
--- OUTSIDE RECORDS SUMMARY | 2025-08-30 12:43 | XMS_ITS | Clinical Summary ---
Author Organization [employer] Formerly [facility] tem Address [id number] [address] 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Active pantoprazole (PROTONIX) 40 mg EC tablet Take 1 tablet (40 mg total) by mouth every morning before breakfast.03/02/2024 Active venlafaxine XR (EFFEXOR XR) 75 mg 24 hr capsule Take 1 capsule (75 mg total) by mouth in the morning.Active venlafaxine XR (EFFEXOR-XR) 150 mg 24 hr capsule Take 1 capsule (150 mg total) by mouth in the morning.Active phenytoin (DILANTIN) 100 mg ER capsule Take 1 capsule (100 mg total) by mouth 3 (three) times a day.07/24/2023ctive primidone (MYSOLINE) 50 mg tablet Take 1 tablet (50 mg total) by mouth. TAKE 2 TABLETS BY MOUTH EVERY MORNING, TAKE 1 TABLET IN THE AFTERNOON, AND TAKE 2 TABLETS AT BEDTIMEActive pregabalin (LYRICA) 150 mg capsule Take 1 capsule (150 mg total) by mouth 3 (three) times a day.01/30/2024ctive tiZANidine (ZANAFLEX) 4 mg tablet Take 1 tablet (4 mg total) by mouth 3 (three) times a day.02/29/2024ctive tamsulosin (FLOMAX) 0.4 mg capsule Take 1 capsule (0.4 mg total) by mouth in the morning.08/28/2023ctive HYDROcodone-acetaminophen (NORCO) 10-325 mg per tablet Take 2 tablets by mouth every 6 (six) hours as needed.02/23/2024ctive albuterol (PROVENTIL HFA;VENTOLIN HFA) 90 mcg/actuation inhaler Inhale 2 puffs 4 (four) times a day.03/04/2024ctive fluticasone propionate (FLONASE) 50 mcg/actuation nasal spray Administer 2 sprays into each nostril in the morning.07/24/2023ctive ARIPiprazole (ABILIFY) 2 mg tablet Take 1 tablet (2 mg total) by mouth in the morning.Active EPINEPHrine 0.15 mg/0.15 mL auto-injector Inject 0.15 mg into the appropriate muscle as needed.07/24/2023ctive PHENobarbitaL (LUMINAL) 32.4 mg tablet 1 tablet (32.4 mg total) 3 (three) times a day.02/06/2024ctive diphenhydrAMINE (BENADRYL) 25 mg capsule Take 1 capsule (25 mg total) by mouth nightly.Active Active Problems No known active problems Family History Medical HistoryRelationNameCommentsNo Known ProblemsFatherDepressionMotherHeart diseaseMotherHypertensionMotherRelationNameStatusCommentsFatherDeceasedMother Alive Social History Tobacco UseTypesPacks/DayYears UsedDateSmoking Tobacco: Every DayCigarettes Smokeless Tobacco: Never Tobacco Cessation:Ready to Q uit: Not Asked; Counseling Given: Not Answered Alcohol UseStandard Drinks/WeekCommentsNot Currently0 (1 standard drink = 0.6 oz pure alcohol)ChildcareAnswerDate WjijeszrChijhdjxeHkcsdhu00/12/2019Employment AnswerDate QhvehxmhLglkwlvompQpzvwyn91/12/2019Hunger ScreeningAnswerDate RecordedWithin the past 12 months we worried whether our food would run out before we got money to buy more.Never True03/10/2024Food Insecurity - Inability Not on file03/10/2024Sex and Gender InformationValueDate RecordedSex Assigned at BirthNot on fileLegal NaoIkqk5605/25/2015 11:26 AM EDTGender IdentityNot on file Sexual OrientationNot on file Last Filed Vital Signs Vital SignReadingTime TakenCommentsBlood Iuwyelpy094/7205 1:02 PM EDT Joyke800903/10/2024 1:02 PM EDTTemperature--Respiratory Rate--Oxygen Saturation-- Inhaled Oxygen Concentration--Erfatm66.8 kg (145 lb)03/10/2024 1:02 PM EDTHeight 175.3 cm (5' 9 )03/10/2024 1:02 PM EDTBody Mass Index21.41003/10/2024 1:02 PM EDT Plan of Treatment Health MaintenanceDue DateLast DoneCommentsDepression Xjbprbuup20/24/1968 DTaP,Tdap and Td Vaccines (1 - Tdap)1975Abdominal Aortic Aneurysm (AAA) Niuqey0507/13/2021Fall Risk Ynycpszax01/24/2021dult BMI Gouiukbln89/22/2025 03/10/2024Tobacco Nvkaywvma34Influenza Dhydqto3506/20/2025 08/08/2023, 08/23/2022, 06/27/2021, Additional history existsZoster (Shingles) IywpmsoEdgsxddbf08/11/2020, 06/14/2020, 03/22/2014RSV ( or age 60+ yrs) Nqnyvcxoz49/22/2023 Medical Devices Not on file Insurance Care Teams Team MemberRelationshipSpecialtyStart DateEnd Date Mitul Richmond MD [address] [facility], [address] [phone] PCP - GeneralInternal Medicine03/02/24
--- OUTSIDE RECORDS SUMMARY | 2025-08-30 12:43 | XMS_ITS | Encounter Summary ---
Author Organization [facility] Address [address] [facility] [place] [address] Care Team Providers Care It Security Consultant Name Role Phone Mitul Richmond MD Unavailable [phone] America Mercado Unavailable [phone] Mitul Richmond MD Primary Care Provider [phone] Venita Rosas RN Unavailable [phone] Encounter Details DateTypeDepartmentCare Team (Latest Contact Info)Xlitrjeugle94/05/2024Clinisync Result Encounter [facility] External Department Unsolicited Provider, Generic External Data Social History Tobacco UseTypesPacks/DayYears UsedDateSmoking Tobacco: Every DayCigarettes0.315 Smokeless Tobacco: Never Comments:Smoking 3 cigarette s a day as of 11/24/2023. 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 [employer]ATIC Feeling down, depressed, or hopelessNot at all06/27/2025 1:39 PM Mine Christiansen LPNPatient Health Questionnaire-2 Qxzml813 1:39 PM Mine Christiansen LPN documented as of this encounter Plan of Treatment DateTypeDepartmentCare Team (Latest Contact Info)Dfsglaypaik21/18/2025 2:00 PM ESTOffice Visit [facility] [address] [place] [phone] America Mercado PA [address] [place] [address] 09/08/2025 2:50 PM ESTProcedure Visit [facility] [address] [place] [address] Frandy Avitia DPM [address] [facility] [address] [place] [address] documented as of this encounter Procedures Procedure NamePriorityDate/TimeAssociated DiagnosisCommentsXR ELBOW 3+ VIEWS LEFT11/24/2023 11:30 AM EST documented in this encounter Results * XR elbow 3+ views left (11/24/2023 11:30 AM EST)Anatomical RegionLaterality ModalityUpper Extremities, ElbowLeftRadiographic ImagingSpecimen (Source) Anatomical Location / LateralityCollection Method / VolumeCollection Time Received Time11/24/2023 11:30 AM EST Narrative 11/24/2023 11:32 AM EST [facility] ?[address] ? [place] [address] ?XRay Report ? Signed ? Patient: DUTCH SANCHEZ Sr. ?MR#: [id number] ?? : 1955 ?Acct:[id number] ?? Age/Sex: 68 / M ?ADM Date: 11/24/23 ?? Loc: RAD ? Attending Dr: Mynor [place] M.D. ? Ordering Physician: Mynor [place] M.D. ?? Date of Service: 11/24/23 ?? Procedure(s): XR elbow LT min 3V ?? Accession Number(s): [id number] ? cc: MITUL RICHMOND ; Mynor [place] M.D. ? [facility] ? [address] ? [place] [address] ? Patient Name: ?? DUTCH SANCHEZ ? MRN: [facility]:[id number] ? date: 1955 ?Sex: M ?? Assigned Patient Location: RAD ?? Current Patient Location: RAD ?? Accession/Order Number: [id number] ?? Exam Date: 11/24/2023 ??09:50 ?Report Date: 11/24/2023 ??11:30 ? At the request of: ?? MYNOR WILSON ? Procedure: ??XR elbow LT min 3V ? EXAM: XR elbow LT min 3V. ? HISTORY: LEFT ELBOW PAIN. ? COMPARISON: Left elbow study dated 09/08/2023. ? TECHNIQUE: AP and lateral views of the left elbow were obtained. ? FINDINGS: Stabilizing plates and screws at the distal humeral level, similar ?? to ?? the prior study and unremarkable. No convincing evidence of acute fracture or ?? dislocation. Calcification at the level of the distal humerus posteriorly ?? likely related to healing. Faint calcification anteriorly and medially at the ?? humeral level likely related to healing. Mild soft tissue swelling. Anterior ?? fat pad is not well seen, no obvious posterior fat pad. ? XR/XR elbow LT min 3V ?? IMPRESSION: ? Left elbow study demonstrates stable postoperative changes at the level of the ? distal humerus. Findings likely related to healing at the distal humeral level ? similar to the prior exam. ? Mild soft tissue swelling. ? Follow-up as needed. ? Electronically authenticated by: SAMUEL ??TOMASA ?? Date: 11/24/2023 ??11:30 ? Dictated By: ?Samuel Randolph M.D. ? Signed By: ?11/24/23 1132 ? DD/ 29 ? TD/TT: ? Imaging Nurse: Procedure Note Radiology, Radiologist, MD - 12/24/[address] [address] XRay Report Signed Patient: DUTCH SANCHEZ Sr.MR#: [id number] : 6Acct:[id number] Age/Sex: 68 / MADM Date: 11/24/23 Loc: RAD Attending Dr: Mynor [place] M.D. Ordering Physician: Mynor [place] M.D. Date of Service: 11/24/23 Procedure(s): XR elbow LT min 3V Accession Number(s): [id number] cc: MITUL RICHMOND ; Mynor [place] M.D. The [address] [address] Patient Name: DUTCH SANCHEZ MRN: [id number] date: 1955 Sex: M Assigned Patient Location: [facility] Current Patient Location: RAD Accession/Order Number: [id number] Exam Date: 11/24/2023 09:50 Report Date: 11/24/2023 [...] M.D. Signed By:11/24/23 1132 DD/ 1130 TD/TT: Imaging Nurse: Authorizing ProviderResult TypeResult StatusGeneric External Data ProviderIMG XR PROCEDURESFinal Result documented in this encounter Visit Diagnoses Not on filedocumented in this encounter Care Teams Team MemberRelationshipSpecialtyStart DateEnd Date Mitul Richmond MD [address] [place] [address] (Hsub) PCP - ACO Reach03/13/23 Mitul Richmond MD [address] [facility] 110 [place] [address] PCP - GeneralInternal Medicine07/07/24 America Mercado PA [address] [facility] [address] [place] [address] Physician AssistantFamily Medicine11/03/23 Venita Rosas, RN [address] [facility] [address] [place] [address] Registered NurseFamily Medicine11/12/24documented as of this encounter
--- OUTSIDE RECORDS SUMMARY | 2025-08-30 12:44 | XMS_ITS | CCD ---
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 Name Role Phone ALONDRAJERMAIN ELLEN Burleson Unavailable Unavailable SHARON EPSTEIN Unavailable Unavailable ELIOT VAZQUEZ Unavailable Unavailable MITUL RICHMOND Unavailable Unavailable MO Unavailable Unavailable DUTCH TRIPP Unavailable Unavailable HEYDI WALLS Unavailable Unavailable BASILIO, DR SALEEM Primary Care Unavailable BASILIO, DR SALEEM Admitting Unavailable BASILIO, DR SALEEM Attending Unavailable BASILIO, DR SALEEM Consulting Unavailable ALEXX MARIE Consulting Unavailable BASILIO, DR SALEEM Primary Care Unavailable BASILIO, DR SALEEM Admitting Unavailable BASILIO, DR SALEEM Attending Unavailable Mitul Richmond MD Unavailable [phone] America Velasquez Unavailable MARIZOL HIGHTOWER Attending Unavailable MITUL RICHMOND Primary Care Unavailable Mitul Richmond MD Primary Care Provider Venita Rosas RN Unavailable [phone] Mitul Richmond MD Primary Care Provider [phone] Venita Rosas RN Unavailable [phone] Mitul Richmond II Primary Care Provider Serenity Costa Attending Provider Unavailable Chirag DELATORRE-MEDICAL CHEMIST-CGloria Attending Provider AMERICA CHRISTIANSON Attending Unavailable AMERICA CHRISTIANSON Attending Unavailable MELISSA GOLDBERG Attending Unavailable ALVINO TORRES Attending Unavailable MELISSA GOLDBERG Referring Unavailable AMERICA CHRISTIANSON Attending Unavailable FRANDY BELTRÁN Attending Unavailable MAXIMO NGUYEN Attending Unavailable MITUL RICHMOND Referring Unavailable FRANDY BELTRÁN Attending Unavailable ALVINO TORRES Attending Unavailable ALVINO TORRES Referring Unavailable AMERICA CHRISTIANSON Attending Unavailable MAXIMO NGUYEN Attending Unavailable FRANDY BELTRÁN Attending Unavailable AMERICA CHRISTIANSON Attending Unavailable AMERICA CHRISTIANSON Attending Unavailable ALVINO TORRES Attending Unavailable MAXIMO NGUYEN Referring Unavailable Richmond JORGE Mitul Primary Care Provider Alvino Torres DO Attending Provider Nirmal Garcia DO N Attending Provider Basilio PATEL Mitul Primary Care Provider Chirag HERNANDEZ-Gloria Marc Attending Provider Alvino Torres DO Attending Provider Bialshon DONirmal Attending Provider [phone] Allergies Allergy ClassificationReported Allergen(s)Allergy TypeDate of OnsetReaction(s) Facility (5 sources)Bee/Wasp/Ant venom; Translations: [BEE STINGS]Propensity to adverse reactions (disorder)85-12-4112[facility]keN[facility]Martin [facility] (2 sources)carBAMazepineDrug Gcscyfo36-16-0980KMIRgsMer[facility] (2 sources)cefaclorDrug Fhzsgqz60-91-2695YRLQisMercy Health St[facility] (2 sources)DULoxetineDrug Muidbzv24-61-8749OGAEzrMercy Health St[facility] Repository (1 source)OXcarbazepineDrug Gnspzbg57-95-1375[facility] (1 source)bee venomDrug allergy (disorder)66-34-6677[facility] (20 sources)Bee pollen; Translations: [BEE POLLEN]Allergy to ptkduhbpe50-34-6820 [facility] Work Phone: (20 sources)Carbamazepine; Translations: [CARBAMAZEPINE]Allergy to substance 09-67-2017JslaymmLQTTGal[facility] (2 sources)buPROPion; Translations: [BUPROPION HCL]Drug Nusjfko78-98-6942 [facility] Repository (20 sources)Cefaclor; Translations: [CEFACLOR]Drug Sweuaha05-53-8537Nnuyx [facility] Repository (20 sources)DULoxetine; Translations: [DULOXETINE]Drug Lnngvlq64-16-4342Dfyqgxf, Other (See Comments)[facility] Repository (20 sources)OXcarbazepine; Translations: [OXCARBAZEPINE]Drug Kzwblsd47-89-2563 Other (See Comments)[facility] Repository (20 sources)buPROPionDrug Npjlhrw03-82-5917[facility] (20 sources)DULoxetineDrug Vakqdfl53-77-4508RRYF [facility] (1 source)Bee pollenDrug Krjbinz96-99-6563VatjinbhGznLurfcb Health System (1 source)carBAMazepineDrug Qollhlx96-32-0947Ujhuf (See Comments)[facility] (16 sources)vareniclineDrug Zeybncg39-47-8507YVIO [facility] Medications Current Medications MedicationDrug Class(es)DatesSig (Normalized)Sig (Original)acetaminophen 500 mg oral tablet (20 sources)take 1 tablet by mouth every six hours as needed for pain acetaminophen (Tylenol Extra Strength) 500 MG tablet Take 500 mg by mouth every 6 (six) hours if needed for mild pain Activeacetaminophen 250 mg / aspirin 250 mg / caffeine 65 mg oral tablet (4 sources)Platelet Aggregation Inhibitor, Nonsteroidal Anti-inflammatory Drug, Central Nervous System Stimulant, MethylxanthineStart: 23-77-7051hwiw 2 tablets by mouth once daily as needed for headacheacetaminophen 325 mg / HYDROcodone bitartrate 10 mg oral tablet (20 sources)Opioid AgonistStart: 06-15-2025 End: 30-50-6040mlbl 2 tablets by mouth every six hours for painHYDROcodone- acetaminophen (Goodell) 10-325 MG tablet Indications: Degenerative disc disease at L5-S1 level Take 2 tablets by mouth every 6 (six) hours if needed for severe pain 120 tablet 08/01/2025 08/16/2025 ActiveStart: 05-12-2025 End: 33-90-9691qrid 2 tablets by mouth every six hours for painHYDROcodone- acetaminophen (Goodell) 10-325 MG tablet Indications: Degenerative disc disease at L5-S1 level Take 2 tablets by mouth every 6 (six) hours if needed for severe pain for up to 15 days 120 tablet 05/12/2025 05/27/2025 ActiveStart: 02-23-2025 End: 06-43-1812roxe 2 tablets by mouth every six hours for painHYDROcodone- acetaminophen (Goodell) 10-325 MG tablet Indications: Degenerative disc disease at L5-S1 level Take 2 tablets by mouth every 6 (six) hours if needed for severe pain for up to 15 days 120 tablet 03/02/2025 03/17/2025 ActiveStart: 01-26-2025 End: 41-21-3600ktqr 2 tablets by mouth every six hours for painHYDROcodone- acetaminophen (Goodell) 10-325 MG tablet Indications: Degenerative disc disease at L5-S1 level Take 2 tablets by mouth every 6 (six) hours if needed for severe pain for up to 15 days 120 tablet 01/27/2025 02/11/2025 ActiveStart: 11-25-2024 End: 33-37-1475vnck 2 tablets by mouth every six hours for painHYDROcodone- acetaminophen (Goodell) 10-325 MG tablet Indications: Degenerative disc disease at L5-S1 level Take 2 tablets by mouth every 6 (six) hours if needed for severe pain for up to 15 days 120 tablet 12/22/2024 01/06/2025 ActiveStart: 10-26-2024 End: 57-22-0876tzzp 2 tablets by mouth every six hours for painHYDROcodone- acetaminophen (Goodell) 10-325 MG tablet Indications: Degenerative disc disease at L5-S1 level Take 2 tablets by mouth every 6 (six) hours if needed for severe pain for up to 15 days 120 tablet 10/26/2024 11/10/2024 ActiveStart: 05-25-2024 End: 65-75-5553rcac 2 tablets by mouth every six hours for painHYDROcodone- acetaminophen (Goodell) 10-325 MG tablet Indications: Degenerative disc disease at L5-S1 level Take 2 tablets by mouth every 6 (six) hours if needed for severe pain 120 tablet 07/05/2024 ActiveStart: 20-18-6745ayih 2 tablets by mouth every six hours as neededHYDROcodone-acetaminophen (NORCO) 10-325 mg per tablet Take 2 tablets by mouth every 6 (six) hours as needed. 02/23/2024 ActiveStart: 61-79-4081zmtp 2 tablets by mouth every six hours for painHYDROcodone- acetaminophen (Goodell) 10-325 MG tablet Indications: Degenerative disc disease at L5-S1 level Take 2 tablets by mouth every 6 (six) hours if needed for severe pain. 120 tablet 0 08/08/2023ctiveStart: 89-32-2289ickh 1 tablet by mouth four times daily as needed for [id number] 200 actuat albuterol 0.09 mg/actuat metered dose inhaler (20 sources)beta2-Adrenergic AgonistStart: 52-80-3027msmc 2 puff(s) by inhalation every four hours for wheezingalbuterol HFA 90 mcg/act inhaler Indications: Chronic obstructive pulmonary disease, unspecified COPD type (HCC) Inhale 2 puffs every 4 (four) hours if needed for wheezing 18 g 11 12/21/2024 ActiveStart: 75-27-5113fwky 2 puff(s) by inhalation every four hours for wheezingalbuterol HFA 90 mcg/act inhaler Indications: Chronic obstructive pulmonary disease, unspecified COPD type (CMS/HCC) Inhale 2 puffs every 4 (four) hours if needed for wheezing 18 g 10 03/30/2024 ActiveStart: 07-76-3240fjbo 2 puff(s) by inhalation four times dailyalbuterol (PROVENTIL HFA;VENTOLIN HFA) 90 mcg/actuation inhaler Inhale 2 puffs 4 (four) times a day. 03/04/2024 Active Start: 43-65-8726yyhx 2 puff(s) by inhalation every four hours for wheezing albuterol HFA 90 mcg/act inhaler Indications: Chronic obstructive pulmonary disease, unspecified COPD type (CMS/HCC) Inhale 2 puffs every 4 (four) hours if needed for wheezing or shortness of breath.54 g 3 08/07/2023 ActiveStart: 54-52-7219kach 1 puff(s) by inhalation twice dailyARIPiprazole 2 mg oral tablet (20 sources)Atypical AntipsychoticStart: 42-96-5750rdmc 1 tablet by mouth once dailybaclofen 10 mg oral tablet (4 sources)gamma-Aminobutyric Acid-ergic AgonistStart: 24-92-9096lafc 1 tablet by mouth once daily at bedtimeBlood Glucose Monitoring Suppl (FreeStyle Lite) w/Device kit (20 sources)Start: 43-66-2953Nkkdf Glucose Monitoring Suppl (FreeStyle Lite) w/Device kit 1 Units in the morning and at noon. 05/16/2022 ActiveStart: 46-29-9889Vpyrp Glucose Monitoring Suppl (FreeStyle Lite) w/Device kit 1 Units in the morning and at noon. 0 05/16/2022 Zcxzjk750 actuat budesonide 0.16 mg/actuat / formoterol fumarate 0.0048 mg/actuat / glycopyrrolate 0.009 m g/actuat metered dose inhaler (20 sources)Corticosteroid, beta2-Adrenergic AgonistStart: 76-55-2152ekie 2 puff(s) by inhalation in the morningBreztri Aerosphere 160-9-4.8 MCG/ACT aerosol Indications: Panlobular emphysema (HCC) , Simple chronic bronchitis (HCC) INHALE TWO (2) PUFFS IN THE MORNING AND INHALE TWO (2) PUFFS BEFORE BEDTIME 10.7 g 11 05/27/2025 ActiveStart: 50-89-5986bckx 2 puff(s) by inhalation in the oyqjxzyZgqjnrl-Euxjspiijkv-Nigpvyinke (Breztri Aerosphere) 160-9-4.8 MCG/ACT aerosol Indications: Panlobular emphysema (HCC) , Simple chronic bronchitis (HCC) Inhale 2 puffs in the morning and 2 puffs before bedtime. 10.7 g 5 12/14/2024 ActivediphenhydrAMINE hydrochloride 25 mg oral capsule (20 sources)Histamine-1 Receptor Antagonisttake 1 capsule by mouth at bedtime diphenhydrAMINE (BENADryl) 25 MG capsule Take 25 mg by mouth at bedtime Active [id number] 0.15 ml EPINEPHrine 1 mg/ml auto-injector (20 sources)alpha-Adrenergic Agonist, beta-Adrenergic Agonist, Catecholamine Start: 35-58-1769WLVHFSKgttt (AUVI-Q) 0.15 mg/0.15 mL IJ solution auto-injector injection Indications: Bee sting allergy Inject 0.3 mL (0.3 mg) into the shoulder, thigh, or buttocks if needed for anaphylaxis 12/13/2024 ActiveStart: 99-10-6939PRBASBOacmw (AUVI-Q) 0.15 mg/0.15 mL IJ solution auto-injector injection Indications: Bee sting allergy Inject 0.15 mL (0.15 mg) into the shoulder, thigh, or buttocks if needed for anaphylaxis. 3 each 1 07/24/2023 Activefluticasone propionate 0.05 mg/actuat metered dose nasal spray (20 sources)CorticosteroidStart: 40-95-7057hjwv 2 spray(s) nasal route once dailyfluticasone (Flonase) 50 MCG/ACT nasal spray Indications: Allergic rhinitis, unspecified seasonality, unspecified trigger INSTILL TWO (2) SPRAYS IN EACH NOSTRIL DAILY 16 g 10 01/17/2025 ActiveStart: 94-24-8164bhuf 2 spray(s) nasal route once dailyfluticasone (Flonase) 50 MCG/ACT nasal spray Indications: Allergic rhinitis, unspecified seasonality, unspecified trigger INSTILL TWO (2) SPRAYS IN EACH NOSTRIL DAILY 16 g 10 01/11/2025 ActiveStart: 05-66-5636wgrw 2 spray(s) nasal route once dailyfluticasone (Flonase) 50 MCG/ACT nasal spray Indications: Allergic rhinitis, unspecified seasonality, unspecified trigger Administer 2 sprays into each nostril Daily 16 g 5 07/26/2024 ActiveStart: 07-24-2023 End: 55-20-6962yqqp 2 spray(s) nasal route in the morningfluticasone (Flonase) 50 MCG/ACT nasal spray Indications: Allergic rhinitis, unspecified seasonality, unspecified trigger Administer 2 sprays into each nostril in the morning. 48 g 3 07/24/2023 07/26/2024 DiscontinuedStart: 29-73-3686zjan 2 spray(s) nasal route in the morningfluticasone propionate (FLONASE) 50 mcg/actuation nasal spray Administer 2 sprays into each nostrilin the morning. 07/24/2023 ActiveStart: 91-02-5916zbatyjkeyf 20 mg oral tablet (20 sources)Loop DiureticStart: 77-35-0753xynr 1 tablet by mouth once daily furosemide (Lasix) 20 MG tablet Take 20 mg by mouth Daily 10/30/2023 Active isopropyl alcohol 0.7 ml/ml medicated pad (20 sources)Alcohol Swabs (Alcohol Prep) pads Apply 1 Pad topically every 12 (twelve) hours. ActivelamoTRIgine 25 mg oral tablet (4 sources)Mood Stabilizer, Anti-epileptic AgentStart: 30-58-6755kkfc 1 tablet by mouth once daily at bedtimelisinopril 20 mg oral tablet (20 sources)Angiotensin Converting Enzyme InhibitorStart: 64-78-9635krtg 1 tablet by mouth before mealtimelisinopril 20 MG tablet Indications: Primary hypertension TAKE 1 TABLET (20MG) BY MOUTH AT NOON BEFORE A MEAL 30 tablet 10 11/12/2024 ActiveStart: 68-10-3305amez 1 tablet by mouth before mealtime lisinopril 20 MG tablet Indications: Primary hypertension (CMS/HCC) Take 1 tablet (20 mg) by mouth at noon. Take before meals 100 tablet 3 11/11/2023 Activemeloxicam 7.5 mg oral tablet (20 sources)Nonsteroidal Anti-inflammatory DrugStart: 84-14-5862lvwp 1 tablet by mouth every twenty-four hours as needed for pain and painmeloxicam (Mobic) 7.5 MG tablet Take 7.5 mg by mouth Daily as needed for mild pain or moderate painQTY 14 tabs 01/06/2025 Activemupirocin 0.02 mg/mg topical ointment (6 sources)RNA Synthetase Inhibitor AntibacterialStart: 15-42-0898ydqhwsgjn (Bactroban) 2 % ointment Indications: Ingrown hair APPLY TO THE AFFECTED AREA topically THREE TIMES DAILY (IN THE MORNING, IN THE EVENING, and BEFORE bedtime) for TEN days 22 g 06/27/2025 ActiveStart: 06-27-2025 End: 17-38-4742mjhsovwhk (Bactroban) 2 % cream Indications: Ingrown hair Apply topically in the morning and in theevening and before bedtime. Do all this for 10 days. 15 g 06/27/2025 07/07/2025 Activenaloxone hydrochloride 40 mg/ml nasal spray (20 sources)Opioid AntagonistStart: 02-23-2024 End: 44-00-9975jgyxddub (Narcan) 4 mg/0.1 mL nasal spray Indications: Degenerative disc disease at L5-S1 level Administer 1 spray (4 mg) into affected nostril(s) if needed for opioid reversal May repeat every 2-3 minutes if needed, alternating nostrils, until medical assistance becomes available. 2 each 02/23/2024 02/22/2025 Activenicotine 4 mg chewing gum (20 sources)Cholinergic Nicotinic AgonistStart: 03-25-2023 End: 79-43-1354pwgelyhl polacrilex (Nicorette) 4 MG gum Indications: Smoking addiction Chew 1 each (4 mg) every 8 (eight) hours if needed for smoking cessation. 90 each 3 03/25/2023 03/15/2025 Discontinued (Other)Start: 03-25-2023 End: 62-96-7123nmjpprgt polacrilex (Commit) 4 MG lozenge Indications: Smoking addiction Dissolve 1 lozenge (4 mg) in the mouth every 8 (eight) hours if needed for smoking cessation. 90 lozenge 2 03/25/2023 03/15/2025 Discontinued (Other) pantoprazole 40 mg delayed release oral tablet (20 sources)Proton Pump InhibitorStart: 30-27-4934ycwx 1 tablet by mouth once daily in the morningPHENobarbital 32 mg oral tablet (20 sources)Start: 49-40-9043oxkx 1 tablet by mouth in the morning, then take 1 tablet by mouth in the evening, then take 1 tablet by mouth at bedtime PHENobarbital (Luminal) 32.4 MG tablet Indications: Localization-related epilepsy (HCC) Take 1 tablet (32.4 mg) by mouth in the morning and 1 tablet (32.4 mg) in the evening and 1 tablet (32.4 mg) before bedtime. 90 tablet 08/15/2025 ActiveStart: 07-20-2025 End: 23-05-6504xakq 1 tablet by mouth in the morning, then take 1 tablet by mouth in the evening, then take 1 tablet by mouth at bedtimePHENobarbital (Luminal) 32.4 MG tablet Indications: Localization-related epilepsy (HCC) Take 1 tablet (32.4 mg) by mouth in the morning and 1 tablet (32.4 mg) in the evening and 1 tablet (32.4 mg) before bedtime. 90 tablet 07/20/2025 08/15/2025 Discontinued (Reorder)Start: 05-25-2024 End: 28-20-6048dyis 1 tablet by mouth in the morning, then take 1 tablet by mouth in the evening, then take 1 tablet by mouth at bedtimePHENobarbital (Luminal) 32.4 MG tablet Indications: Localization-related epilepsy (HCC) Take 1 tablet (32.4 mg) by mouth in the morning and 1 tablet (32.4 mg) in the evening and 1 tablet (32.4 mg) before bedtime. 90 tablet 2 07/18/2025 ActiveStart: 71-91-5987jglg 1 tablet by mouth in the morning, then take 1 tablet by mouth in the evening, then take 1 tablet by mouth at bedtimePHENobarbital (Luminal) 32.4 MG tablet Indications: Localization-related epilepsy (CMS/HCC) Take 1 tablet (32.4 mg) by mouth in the morning and 1 tablet (32.4 mg) in the evening and 1 tablet (32.4 mg) before bedtime. 90 tablet 0 10/28/2023 ActiveStart: 07-01-2018 take 1 tablet by mouth three times dailyphenytoin sodium 100 mg extended release oral capsule (20 sources)Anti-epileptic AgentStart: 07-01-2018 End: 75-96-2285utht 1 capsule by mouth at bedtimephenytoin ER (Dilantin) 100 MG capsule Indications: Localization-related epilepsy (HCC) TAKE ONE (1) CAPSULE BY MOUTH IN THE MORNING, IN THE EVENING, AT BEDTIME 90 capsule 10 12/29/2024 Activepregabalin 150 mg oral capsule (20 sources)Start: 07-01-2018 End: 07-80-9995xuhv 1 capsule by mouth in the morning, then take 1 capsule by mouth in the evening, then take 1 capsule by mouth at bedtimeprimidone 50 mg oral tablet (20 sources)Anti-epileptic AgentStart: 73-86-5568Eogab: 75-24-0258boyecefac (Mysoline) 50 MG tablet Indications: Essential tremor Take 2 tablets in the am, 1 tablet in the afternoon, and 2 tablets at bedtime 150 tablet 5 07/07/2024 ActiveStart: 06-08-2024 End: 76-41-1289hzfc 1 tablet by mouth five times dailyprimidone (Mysoline) 50 MG tablet Indications: Essential tremor TAKE 1 TABLET BY MOUTH 5 TIMES A DAY 150 tablet 10 07/02/2024 07/07/2024 Discontinued (Reorder)Start: 73-08-5884xlsa 1 tablet by mouth in the morningprimidone (Mysoline) 50 MG tablet Indications: Essential tremor Take 1 tablet (50 mg) by mouth in the morning and 1 tablet (50 mg) before bedtime. 400 tablet 3 07/24/2023 ActiveStart: 07-01-2018 End: 06-53-4797kjnd 1 tablet by mouth twice dailyPrimidone 50 mg tablet Discontinued 50 MG PO Twice daily June 30, 2018 11:00pm March 28, 2025 12:41pm essential tremorssildenafil 50 mg oral tablet (20 sources)Phosphodiesterase 5 InhibitorStart: 12-29-9090dupl 1 tablet by mouth once daily as neededsildenafil (Viagra) 50 MG tablet Indications: Erectile dysfunction, unspecified erectile dysfunction type Take 1 tablet (50 mg) by mouth Daily as needed for erectile dysfunction 8 tablet 2 5ActiveStart: 40-61-9272mgsn 1 tablet by mouth once daily as neededsildenafil (Viagra) 50 MG tablet Indications: Erectile dysfunction, unspecified erectile dysfunction type Take 1 tablet (50 mg) by mouth Daily as needed for erectile dysfunction 8 tablet 2 05/25/2024ctiveStart: 11-11-2023 End: 38-22-5872lezq 1 tablet by mouth once daily as neededsildenafil (Viagra) 25 MG tablet Indications: Erectile dysfunction, unspecified erectile dysfunction type Take 1 tablet (25 mg) by mouth Daily as needed for erectile dysfunction 20 tablet 0 11/11/2023 12/11/2023 Activesimvastatin 40 mg oral tablet (20 sources)HMG-CoA Reductase InhibitorStart: 20-83-2887fszq 1 tablet by mouth once daily in the morningtamsulosin hydrochloride 0.4 mg oral capsule (20 sources)alpha-Adrenergic BlockerStart: 41-50-3268zdxx 1 capsule by mouth once dailyStart: 74-86-2119pllb 1 capsule by mouth once daily in the morning tamsulosin (Flomax) 0.4 MG 24 hr capsule Indications: Benign localized prostatic hyperplasia with lower urinary tract symptoms (LUTS) TAKE 1 CAPSULE BY MOUTH EVERY MORNING 30 capsule 10 06/01/2024 ActiveStart: 43-02-7436trwj 1 capsule by mouth in the morningtamsulosin (FLOMAX) 0.4 mg capsule Take 1 capsule (0.4 mg total) by mouth in the morning. 08/28/2023 ActivetiZANidine 4 mg oral tablet (20 sources)Central alpha-2 Adrenergic AgonistStart: 54-95-7863xdia 2 tablets by mouth every eight hours as needed for muscle spasmstiZANidine (Zanaflex) 4 MG tablet Indications: Right lumbar radiculopathy TAKE 2 TABLETS BY MOUTH EVERY 8 HOURS NEEDED FOR MUSCLE SPASMS 60 tablet 10 12/02/2024 ActiveStart: 46-67-8103ufwd 2 tablets by mouth every eight hours for muscle spasmstiZANidine (Zanaflex) 4 MG tablet Indications: Right lumbar radiculopathy Take 2 tablets (8 mg) by mouth every 8 (eight) hours if needed for muscle spasms 180 tablet 1 10/29/2024 ActiveStart: 42-17-7045modu 2 tablets by mouth every eight hours as needed for muscle spasmstiZANidine (Zanaflex) 4 MG tablet Indications: Right lumbar radiculopathy TAKE 2 TABLETS BY MOUTH EVERY 8 HOURS NEEDED FOR MUSCLE SPASMS 60 tablet 10 10/01/2024 ActiveStart: 04-07-2024 End: 00-99-1632iqtc 2 tablets by mouth every eight hours as needed for muscle spasms and muscle spasms, then take 2 tablets by mouth every eight hours as needed for muscle spasms and muscle spasmstiZANidine (Zanaflex) 4 MG tablet Indications: Right lumbar radiculopathy Take 2 tablets (8 mg) by mouth every 8 (eight) hours if needed for muscle spasms TAKE 2 TABLETS BY MOUTH EVERY 8 HOURS NEEDED FOR MUSCLE SPASMS 60 tablet 2 07/05/2024 ActiveStart: 48-09-5015fwfv 1 tablet by mouth three times dailytiZANidine (ZANAFLEX) 4 mg tablet Take 1 tablet (4 mg total) by mouth 3 (three) times a day. 02/29/2024 ActiveStart: 92-41-2646aelh 2 tablets by mouth every eight hours for muscle spasmstiZANidine (Zanaflex) 4 MG tablet Indications: Right lumbar radiculopathy take 2 tablets by mouth every 8 hours if needed for muscle spasm 60 tablet 0 11/17/2023 Active Start: 07-01-2018 End: 16-10-5292dpkj 1 tablet by mouth twice dailyTizanidine 4 mg tablet Discontinued 4 MG PO Twice daily June 30, 2018 11:00pm August 08, 2025 10:03am muscle nivklp09 hr venlafaxine 75 mg extended release oral capsule (20 sources)Serotonin and Norepinephrine Reuptake InhibitorStart: 81-94-1695mxgq 1 capsule by mouth every twenty-four hours in the morningvenlafaxine XR (Effexor XR) 150 MG 24 hr capsule Indications: Depressive disorder (CMS/HCC) Take 1 capsule (150 mg) by mouth in the morning. 100 capsule 3 07/24/2023 Active Start: 79-80-0582reyq 1 capsule by mouth once daily in the morningStart: 07-01-2018 End: 90-12-4027gniy 1 capsule by mouth once dailyvenlafaxine XR (Effexor XR) 75 MG 24 hr capsule Indications: Depressive disorder TAKE 1 CAPSULE BY MOUTH DAILY 100 capsule 3 06/29/2025 Activetake 1 capsule by mouth every twenty-four hours in the morningvenlafaxine XR (EFFEXOR XR) 75 mg 24 hr capsule Take 1 capsule (75 mg total) by mouth in the morning. Active Completed/Discontinued Medications MedicationDrug Class(es)DatesSig (Normalized)Sig (Original)bupivacaine hydrochloride 2.5 mg/ml injectable solution (12 sources)Amide Local AnestheticStart: 02-16-2025 End: 24-97-0346eeuekzewesd (Marcaine) 0.25 % injection 2.5 mgStart: 02-16-2025 End: 52.5 mg (1 mL), Injection, Once, On Fri02/16/25 at 1215, For 1 doseStart: 10-26-2024 End: 53-31-4522linkxlwwfdb (Marcaine) 0.25 % injection 2.5 mgStart: 10-26-2024 End: 52.5 mg (1 mL), Injection, Once, On Fri10/26/24 at 1515, For 1 dose Start: 10-26-2024 End: 16-21-7848kmxtuxswpin (Marcaine) 0.25 % injection 2.5 mgStart: 10-26-2024 End: 52.5 mg (1 mL), Injection, Once, On Fri10/26/24 at 1515, For 1 dose Start: 08-03-2024 End: 81-35-6399pvaeudgawuz (Marcaine) 0.25 % injection 2.5 mgStart: 08-03-2024 End: .5 mg (1 mL), Injection, Once, On Fri08/03/24 at 1400, For 1 doseStart: 08-03-2024 End: 86-66-9961puqnlonaili (Marcaine) 0.25 % injection 2.5 mgStart: 08-03-2024 End: .5 mg (1 mL), Injection, Once, On Fri08/03/24 at 1400, For 1 dosedexamethasone phosphate 10 mg/ml injectable solution (12 sources)CorticosteroidStart: 02-16-2025 End: 15-42-3863trxURZMOksddv sod phos (Decadron) injection 10 mgStart: 02-16-2025 End: 89-00-495853 mg (1 mL), Injection, Once, On Fri02/16/25 at 1215, For 1 dose Start: 10-26-2024 End: 02-31-7629dlyIREHIahmfn sod phos (Decadron) injection 10 mgStart: 10-26-2024 End: 95-66-107620 mg (1 mL), Injection, Once, On Fri10/26/24 at 1515, For 1 dose Start: 10-26-2024 End: 27-79-8348qzuMVFGFurcaa sod phos (Decadron) injection 10 mgStart: 10-26-2024 End: 03-04-910840 mg (1 mL), Injection, Once, On Fri10/26/24 at 1515, For 1 dose Start: 08-03-2024 End: 90-23-2891jaiTXDSMocujg sod phos (Decadron) injection 10 mgStart: 08-03-2024 End: 19-70-583783 mg (1 mL), Injection, Once, On Fri08/03/24 at 1400, For 1 doseStart: 08-03-2024 End: 27-51-1254eebOLWJHkvxrc sod phos (Decadron) injection 10 mgStart: 08-03-2024 End: 10-32-743237 mg (1 mL), Injection, Once, On Fri08/03/24 at 1400, For 1 doseiohexol (OMNIPaque) 300 MG/ML injection 2 mL (12 sources)Start: 02-16-2025 End: 41-80-2178fdcpwka (OMNIPaque) 300 MG/ML injection 2 mLStart: 02-16-2025 End: mL, Injection, Once in imaging, Starting on Fri02/16/25 at 1214, For 1 doseStart: 10-26-2024 End: 34-37-5185lwhldcq (OMNIPaque) 300 MG/ML injection 2 mLStart: 10-26-2024 End: mL, Injection, Once in imaging, Starting on Fri10/26/24 at 1507, For 1 doseStart: 08-03-2024 End: 93-32-9888mflikqh (OMNIPaque) 300 MG/ML injection 2 mLStart: 08-03-2024 End: mL, Injection, Once in imaging, Starting on Fri08/03/24 at 1354, For 1 dosepeg 3350-sod sulf,ixrg-ojh-mfd 178.7-7.3-0.5 gram recon soln (1 source)Start: 03-10-2024 End: 75-38-3893oaq 3350-sod sulf,etjw-gei-sok 178.7-7.3-0.5 gram recon soln Indications: Rectal bleeding Take 1 kit by mouth in the morning for 1 dose. Please see instructional sheet given by Physicians office. 1 each 03/10/2024 03/11/2024 ExpiredSUMAtriptan 100 mg oral tablet (4 sources)Serotonin-1b and Serotonin-1d Receptor AgonistStart: 07-01-2018 End: 83-25-9899Nwfobqoczbb Succinate 100 mg tablet Discontinued 100 MG PO As Directed as needed for Migraine Headache June 30, 2018 11:00pm June 01, 2025 12:49pm Problems Active Problems Problem ClassificationProblemDateDocumented DateEpisodic/ChronicBlindness and vision defects (20 sources)Visual impairment; Translations: [Unspecified visual loss]Onset: 575641-50-2281MnzfkyhOwdgxoj obstructive pulmonary disease and bronchiectasis (20 sources)Chronic obstructive pulmonary disease, unspecified; Translations: [Chronic obstructive lung disease]Onset: 129597-24-2624OydtsgcIxnlbcth mellitus with complications (20 sources)Peripheral neuropathy due to type 2 diabetes mellitus; Translations: [Type 2 diabetes mellitus withdiabetic polyneuropathy]Onset: 03-24-2023 Resolved: 817005-12-6183QrzoywwFwqsxlkq mellitus without complication (1 source)Type 2 diabetes mellitus without complications; Translations: [TYPE 2 DIABETES MELLITUS WITHOUT COMPLICATIONS]Onset: 31-36-9327UtmlrcdSzzhldlzy of lipid metabolism (20 sources)Mixed hyperlipidemia; Translations: [Mixed hyperlipidemia]Onset: 384081-23-4249TxisjwyP Codes: Fall (2 sources)Fall; Translations: [Unspecified fall, initial encounter]06-27-2025 EpisodicEpilepsy; convulsions (20 sources)Epilepsy, unspecified, not intractable, without status epilepticus; Translations: [Localization-related epilepsy]Onset: hronic Esophageal disorders (20 sources)Gastroesophageal reflux disease without esophagitis; Translations: [Gastro-esophageal reflux disease without esophagitis]Onset: 03-24-2023 45-55-3971HdcflshFeqikfxbz hypertension (20 sources)Hypertensive disorder; Translations: [Essential (primary) hypertension]Onset: 728969-92-3069NdtomqnTzpmedwg Injury - Fall (1 source)Fall on same level from slipping, tripping and stumbling with subsequent striking against other object, initial encounter; Translations: [FALL SAME LEV FROM SLIP/TRIP W STRIKE AGNST OTH OBJECT, INIT]Onset: 06-08-2017 External Injury - Place of occurrence (1 source)Other place in unspecified non-institutional (private) residence as the place of occurrence of the external cause; Translations: [OTH PLACE IN UNSP NON-INSTITUT (PRIVATE) RESIDENCE PLACE]Onset: 74-24-0897Xhtliklfpebtvkho hemorrhage (2 sources)Hemorrhage of anus and rectum; Translations: [Rectal hemorrhage] Onset: 799131-78-2137PbufgjqqRccjftpn; including migraine (20 sources)Migraine; Translations: [Migraine, unspecified, not intractable, without status migrainosus]Onset: 03-24-2023 Resolved: 087047-36-7816KwrsumcYuditvfvdwp of prostate (20 sources)Benign prostatic hypertrophy with outflow obstruction; Translations: [Benign prostatic hyperplasia with lower urinary tract symptoms]Onset: 942409-04-6606OhuuemdZzykhusqehjir and screening for infectious disease (4 sources)Patient encounter status; Translations: [Encounter for immunization] 37-19-8763HjnmfthoRnjk disorders (20 sources)Depressive disorder; Translations: [Depressive disorder]Onset: 055902-06-9255ZujxxorLiyuwdr (3 sources)Onychomycosis; Translations: [Tinea unguium]28-37-9011Cnfwfjlo Osteoarthritis (20 sources)Degenerative joint disease involving multiple joints; Translations: [Polyosteoarthritis, unspecified]Onset: 089851-31-6362IhpjraiFvnay aftercare (14 sources)Polypharmacy ; Translations: [Other long term care administrator (current) drug therapy]86-37-9524UbjzszgyJslbu ear and sense organ disorders (20 sources)Chronic otitis externa of left external auditory canal; Translations: [Unspecified chronic otitis externa, left ear]Onset: 03-24-2023 65-58-7552KuqllpkRsqtc hereditary and degenerative nervous system conditions (20 sources)Essential tremor; Translations: [Essential tremor]Onset: 03-24-2023 32-00-7740TfnkdasXyewj nervous system disorders (1 source)Other chronic pain; Translations: [OTHER CHRONIC PAIN]Onset: 97-18-4226IvnvibbUalsh nervous system disorders (20 sources)Polyneuropathy; Translations: [Polyneuropathy, unspecified]Onset: 325360-04-4264TyaqizaJjcpp nervous system disorders (20 sources)Chronic pain; Translations: [Other chronic pain]Onset: 03-15-2025 51-93-7769PwaevkiVkcdu nervous system disorders (20 sources)Abnormal gait; Translations: [Unspecified abnormalities of gait and mobility]Onset: 962072-77-9913UygwxkbnQfnun non-traumatic joint disorders (4 sources)Pain in right ankle and joints of right foot; Translations: [PAIN IN RIGHT ANKLE]Onset: 63-98-8511UnbfgmbkPbstk skin disorders (2 sources)Jennifer incarnati; 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]06-27-2025 EpisodicOther upper respiratory disease (1 source)Allergic rhinitis; Translations: [Allergic rhinitis, unspecified] 48-60-2127SmpfkcfLebhfcjqak and visceral atherosclerosis (1 source)Peripheral vascular disease; Translations: [Peripheral vascular disease, unspecified]61-69-6564RrgykukTfhbwbib codes; unclassified (1 source)Tobacco use; Translations: [Tobacco use]Onset: 57-04-5543Jdsnguii Spondylosis; intervertebral disc disorders; other back problems (20 sources)Other spondylosis, cervical region; Translations: [Degeneration of lumbosacral intervertebral disc]Onset: 108490-29-0996RkrzichGegwsdydjgy; intervertebral disc disorders; other back problems (20 sources)Dorsalgia, unspecified; Translations: [Lumbosacral neuritis]Onset: 06-08-2017 Resolved: 157474-36-4283UytgzfeiPbyxobczk-dlbvfop disorders (20 sources)Nicotine dependence, cigarettes, uncomplicated; Translations: [Tobacco dependence caused by cigarettes]Onset: hronic Superficial injury; contusion (2 sources)Contusion of left knee; Translations: [Contusion of left knee, subsequent encounter]94-36-9932PkjkiiknQagfomelwnbh (2 sources)Unknown / UNK(Unknown)Onset: 63-91-7261Zaojwwcpkajm (1 source)GI BleedingOnset: 10-57-6105Bsectyxhznyt (3 sources)R26.81 - Unsteadiness on feet,M54.16 - Radiculopathy, lumbar region Unclassified (2 sources)M54.17 - Radiculopathy, lumbosacral region Past or Other Problems Problem ClassificationProblemDateDocumented DateEpisodic/ChronicAbdominal hernia (20 sources)Hiatal hernia; Translations: [Diaphragmatic hernia without obstruction or gangrene]Onset: 937796-06-4469BfxaskpxVieruwpe reactions (20 sources)Allergy status to other anti-infective agents status; Translations: [Hand eczema]Onset: 833024-36-6823JutlteyyNgxcnhhd mellitus without complication (20 sources)Impaired glucose tolerance; Translations: [Impaired glucose tolerance (oral)]Onset: 035324-67-3522ErwixfwmYycfu and electrolyte disorders (20 sources)Hyponatremia; Translations: [Hypo-osmolality and hyponatremia]Onset: 467045-13-4512XxrbpgztHclblryw; including migraine (20 sources)Headache; Translations: [Headache]Onset: 03-15-2024 Resolved: 150659-40-4177QkujhlilJuidrhkejlf (20 sources)External hemorrhoids; Translations: [Residual hemorrhoidal skin tags]Onset: 989025-22-2308EnwbhmfiBfioc and unspecified benign neoplasm (20 sources)Adenomatous polyp of colon ; Translations: [Benign neoplasm of colon, unspecified]Onset: 975699-51-1228SljvwbxqPrtjd and unspecified benign neoplasm (8 sources)Benign neoplasm of colon, unspecified; Translations: [Benign neoplasm of colon]Onset: 441134-80-3446UkgvcyzvJvnjs connective tissue disease (20 sources)Recurrent falls ; Translations: [Repeated falls]Onset: 03-24-2023 69-34-9229JmoairskEbyvq connective tissue disease (1 source)Pain of toes of bilateral feet; Translations: [Pain in right toe(s)] 38-47-8937TpwfdzhaPuglo ear and sense organ disorders (20 sources)Otitis externa; Translations: [Unspecified otitis externa, unspecified ear]Onset: 03-24-2023 Resolved: 362754-49-6816BgznwwzTghjz fractures (1 source)Fracture of other parts of neck, initial encounter; Translations: [FRACTURE OF OTHER PARTS OF NECK,INITIAL ENCOUNTER]Onset: 57-56-3740Wqhekbzo Other injuries and conditions due to external causes (3 sources)Unspecified injury of neck, initial encounter; Translations: [Traumatic subcutaneous emphysema, initial encounter]Onset: 33-06-7247Gpgiohpa Other nervous system disorders (20 sources)Impairment of balance; Translations: [Other abnormalities of gait and mobility]Onset: 897135-58-9093PieufaunTpowe nervous system disorders (20 sources)Tremor; Translations: [Tremor, unspecified]Onset: 03-15-2024 46-66-0332PddfaoprNggca upper respiratory infections (20 sources)Recurrent acute sinusitis; Translations: [Acute recurrent sinusitis, unspecified]Onset: 077867-73-6532XymhsapiDvngbuit codes; unclassified (1 source)Tobacco user; Translations: [Tobacco use]80-45-6066Verghaob Results Test NameValueInterpretationReference RangeFacilityMR LUMBAR SPINE WO CONon 39-40-1730[place] [address] Magnetic Resonance Report Signed Patient: DUTCH MONIQUE Sr. MR#: [id number] : 1955 Acct:[id number] Age/Sex: 69 / M ADM Date: 06/17/25 Loc: LAB Attending Dr: Gloria Beard [employer] Ordering Physician: Gloria Beard NP Date of Service: 06/17/25 Procedure(s): MR lumbar spine wo con Accession Number(s): [id number] cc: MITUL RICHMOND ; Gloria Beard NP [place] [id number] Patient Name: DUTCH MONIQUE MRN: [id number] date: 1955 Sex: M Assigned Patient Location: LAB Current Patient Location: LAB Accession/Order Number: [id number] Exam Date: 06/17/2025 13:15 Report Date: 06/17/2025 16:29 At the request of: GLORIA BEARD NP Procedure: MR lumbar spine wo con MR lumbar spine wo con 06/17/2025 3:01 PM SIGNS AND SYMPTOMS: Chronic low back pain affecting the lower extremities PROTOCOL: Multiplanar multisequence MR images of the lumbar spine without IV contrast COMPARISON: 07/21/2024 FINDINGS: There is straightening of the normal lumbar lordosis. The bones are otherwise in anatomic alignment. There is preservation of vertebral body heights. There is severe disc height loss at L5-S1. There is moderate disc height loss at L2-L3 and L3-4 with mild disc height loss at L1-L2 and L4-5. There is Modic type I endplate edema at L3-L4 and L5-S1. The conus terminates at the inferior endplate of the L1 vertebral body level. No epidural or paraspinous fluid collection is appreciated. At T12-L1: There is a normal disc, central canal, and neural foramen. At L1-L2: There is a normal disc, central canal, and neural foramen. At L2-L3: There is a broad-based disc bulge. There is a focal left foraminal disc protrusion. There is moderate left neural foraminal narrowing with mild right neural foraminal narrowing. No significant spinal canal narrowing. This is unchanged. At L3-L4: There is a broad-based disc bulge with facet hypertrophy. There is mild spinal canal stenosis with moderate to severe left and moderate right neural frontal stenosis. This is unchanged. At L4-L5: There is a circumferential disc bulge with facet hypertrophy and ligamentum flavum thickening. There is moderate spinal canal stenosis with severe bilateral neural foraminal narrowing and mass effect on the exiting L4 nerve roots bilaterally. This is unchanged. At L5-S1: There is a circumferential disc bulge with endplate osteophyte formation. There is facet hypertrophy. There is mild spinal canal narrowing with severe right and moderate severe left neural foraminal narrowing. Is mass effect on the exiting L5 nerve roots bilaterally, right greater than left. This is unchanged. MR/MR lumbar spine wo con IMPRESSION: At L3-L4: There is a broad-based disc bulge with facet hypertrophy. There is mild spinal canal stenosis with moderate to severe left and moderate right neural frontal stenosis. This is unchanged. At L4-L5: There is a circumferential disc bulge with facet hypertrophy and ligamentum flavum thickening. There is moderate spinal canal stenosis with severe bilateral neural foraminal narrowing and mass effect on the exiting L4 nerve roots bilaterally. This is unchanged. At L5-S1: There is a circumferential disc bulge with endplate osteophyte formation. There is facet hypertrophy. There is mild spinal canal narrowing with severe right and moderate severe left neural foraminal narrowing. Is mass effect on the exiting L5 nerve roots bilaterally, right greater than left. This is unchanged. Impression dictated by: Walt Almendarez M.D. 06/17/2025 4:29 PM Dictation Location: [place] [address] Electronically authenticated by: [id number] Y Date: 06/17/2025 16:29 Dictated By: Walt Almendarez M.D. Signed By: 06/17/25 1632 (more content not included)...TBHRadiology, Radiologist, - 06/17/2025 [place] [address] Magnetic Resonance Report Signed Patient: DUTCH MONIQUE Sr. MR#: [id number] : 1955 Acct:[id number] Age/Sex: 69 / M ADM Date: 06/17/25 Loc: LAB Attending Dr: Gloria Beard NP Ordering Physician: Gloria Beard NP Date of Service: 06/17/25 Procedure(s): MR lumbar spine wo con Accession Number(s): [id number] cc: MITUL RICHMOND ; Gloria Beard NP [facility] [place] [id number] Patient Name: DUTCH MONIQUE MRN: [id number] date: 1955 Sex: M Assigned Patient Location: LAB Current Patient Location: LAB Accession/Order Number: [id number] Exam Date: 06/17/2025 13:15 Report Date: 06/17/2025 16:29 At the request of: GLORIA BEARD NP Procedure: MR lumbar spine wo con MR lumbar spine wo con 06/17/2025 3:01 PM SIGNS AND SYMPTOMS: Chronic low back pain affecting the lower extremities PROTOCOL: Multiplanar multisequence MR images of the lumbar spine without IV contrast COMPARISON: 07/21/2024 FINDINGS: There is straightening of the normal lumbar lordosis. The bones are otherwise in anatomic alignment. There is preservation of vertebral body heights. There is severe disc height loss at L5-S1. There is moderate disc height loss at L2-L3 and L3-4 with mild disc height loss at L1-L2 and L4-5. There is Modic type I endplate edema at L3-L4 and L5-S1. The conus terminates at the inferior endplate of the L1 vertebral body level. No epidural or paraspinous fluid collection is appreciated. At T12-L1: There is a normal disc, central canal, and neural foramen. At L1-L2: There is a normal disc, central canal, and neural foramen. At L2-L3: There is a broad-based disc bulge. There is a focal left foraminal disc protrusion. There is moderate left neural foraminal narrowing with mild right neural foraminal narrowing. No significant spinal canal narrowing. This is unchanged. At L3-L4: There is a broad-based disc bulge with facet hypertrophy. There is mild spinal canal stenosis with moderate to severe left and moderate right neural frontal stenosis. This is unchanged. At L4-L5: There is a circumferential disc bulge with facet hypertrophy and ligamentum flavum thickening. There is moderate spinal canal stenosis with severe bilateral neural foraminal narrowing and mass effect on the exiting L4 nerve roots bilaterally. This is unchanged. At L5-S1: There is a circumferential disc bulge with endplate osteophyte formation. There is facet hypertrophy. There is mild spinal canal narrowing with severe right and moderate severe left neural foraminal narrowing. Is mass effect on the exiting L5 nerve roots bilaterally, right greater than left. This is unchanged. MR/MR lumbar spine wo con IMPRESSION: At L3-L4: There is a broad-based disc bulge with facet hypertrophy. There is mild spinal canal stenosis with moderate to severe left and moderate right neural frontal stenosis. This is unchanged. At L4-L5: There is a circumferential disc bulge with facet hypertrophy and ligamentum flavum thickening. There is moderate spinal canal stenosis with severe bilateral neural foraminal narrowing and mass effect on the exiting L4 nerve roots bilaterally. This is unchanged. At L5-S1: There is a circumferential disc bulge with endplate osteophyte formation. There is facet hypertrophy. There is mild spinal canal narrowing with severe right and moderate severe left neural foraminal narrowing. Is mass effect on the exiting L5 nerve roots bilaterally, right greater than left. This is unchanged. Impression dictated by: Walt Almendarez M.D. 06/17/2025 4:29 PM Dictation Location: [place] [address] Electronically authenticated by: [id number] Y Date: 06/17/2025 16:29 Dictated By: Walt Almendarez M.D. Signed By: 06/17/25 1632 DD/ 1629 TD/TT: Cabinet Professional: [facility] HealthcareRadiology Study observation (narrative)[facility] LUMBAR SPINE WO CONOrdered By: Radiologist Radiology on 94-42-5476GPTSMissouri Baptist Medical Center Work Phone: MRI HEAD/BRAIN WO/W CONTRon [id number] [address] Magnetic Resonance Report Signed Patient: DUTCH MONIQUE Sr. MR#: [id number] : 1955 Acct:[id number] Age/Sex: 69 / M ADM Date: 06/17/25 Loc: LAB Attending Dr: Gloria Beard [employer] Ordering Physician: Gloria Beard NP Date of Service: 06/17/25 Procedure(s): MR head/brain wo/w con Accession Number(s): [id number] cc: MITUL RICHMOND ; Gloria Beard NP [address] [address] Patient Name: DUTCH MONIQUE MRN: [id number] date: 1955 Sex: M Assigned Patient Location: LAB Current Patient Location: LAB Accession/Order Number: [id number] Exam Date: 06/17/2025 13:15 Report Date: 06/17/2025 16:41 At the request of: GLORIA BEARD NP Procedure: MR head/brain wo/w con MR head/brain wo/w con 06/17/2025 3:02 PM SIGN AND SYMPTOMS: Unsteady Gait, Migraine Without Aura PROTOCOL: Multiplanar multisequence MR images of the brain with and without IV contrast CONTRAST: 13 mL of intravenous Dotarem COMPARISON: 09/12/2023 FINDINGS: Extra axial spaces: There is diffuse age-related cortical atrophy which is focally greatest along the frontal lobes bilaterally. Hemorrhage: None. Ventricular system: Within normal limits. Basal cisterns: Within normal limits and not effaced. Cerebral parenchyma: Periventricular and subcortical white matter T2 and FLAIR hyperintense signal is noted consistent with chronic microvascular ischemic change.. No abnormal postcontrast enhancement. Midline shift: None.. Cerebellum: Within normal limits. Brainstem: T2 and T2 FLAIR hyperintense signal is noted throughout the moreno. OTHER: Calvarium: Normal marrow signal. Vascular system: Satisfactory flow voids within the anterior and posterior circulation. Visualized Paranasal sinuses: There is partial opacification of the left maxillary sinus. Polypoid mucosal thickening is noted in the left sphenoid sinus with mucosal thickening in the ethmoid air cells bilaterally. Visualized Orbits: Hyperintense signal is noted on T1 weighted imaging within the left globe. The left globe is mildly atrophic. This is chronic in nature. Visualized upper cervical spine: Within normal limits. Sella and skull base: Within normal limits. MR/MR head/brain wo/w con IMPRESSION: No acute intracranial pathology or abnormal postcontrast enhancement. Chronic age-related neurodegenerative changes are noted with atrophy focally greatest along the frontal lobes bilaterally. Impression dictated by: Walt Almendarez M.D. 06/17/2025 4:41 PM Dictation Location: [place] [address] Electronically authenticated by: [id number] Y Date: 06/17/2025 16:41 Dictated By: Walt Almendarez M.D. Signed By: 06/17/25 1644 DD/ 164 TD/TT: Cabinet Professional:TBHRadiology, Radiologist, - 06/17/2025 [place] [address] Magnetic Resonance Report Signed Patient: DUTCH MONIQUE Sr. MR#: [id number] : 1955 Acct:[id number] Age/Sex: 69 / M ADM Date: 06/17/25 Loc: LAB Attending Dr: Gloria Beard NP Ordering Physician: Gloria Beard NP Date of Service: 06/17/25 Procedure(s): MR head/brain wo/w con Accession Number(s): [id number] cc: MITUL RICHMOND Sarah NP [facility] [place] [id number] Patient Name: DUTCH MONIQUE MRN: [id number] date: 1955 Sex: M Assigned Patient Location: LAB Current Patient Location: LAB Accession/Order Number: [id number] Exam Date: 06/17/2025 13:15 Report Date: 06/17/2025 16:41 At the request of: GLORIA BEARD NP Procedure: MR head/brain wo/w con MR head/brain wo/w con 06/17/2025 3:02 PM SIGN AND SYMPTOMS: Unsteady Gait, Migraine Without Aura PROTOCOL: Multiplanar multisequence MR images of the brain with and without IV contrast CONTRAST: 13 mL of intravenous Dotarem COMPARISON: 09/12/2023 FINDINGS: Extra axial spaces: There is diffuse age-related cortical atrophy which is focally greatest along the frontal lobes bilaterally. Hemorrhage: None. Ventricular system: Within normal limits. Basal cisterns: Within normal limits and not effaced. Cerebral parenchyma: Periventricular and subcortical white matter T2 and FLAIR hyperintense signal is noted consistent with chronic microvascular ischemic change.. No abnormal postcontrast enhancement. Midline shift: None.. Cerebellum: Within normal limits. Brainstem: T2 and T2 FLAIR hyperintense signal is noted throughout the moreno. OTHER: Calvarium: Normal marrow signal. Vascular system: Satisfactory flow voids within the anterior and posterior circulation. Visualized Paranasal sinuses: There is partial opacification of the left maxillary sinus. Polypoid mucosal thickening is noted in the left sphenoid sinus with mucosal thickening in the ethmoid air cells bilaterally. Visualized Orbits: Hyperintense signal is noted on T1 weighted imaging within the left globe. The left globe is mildly atrophic. This is chronic in nature. Visualized upper cervical spine: Within normal limits. Sella and skull base: Within normal limits. MR/MR head/brain wo/w con IMPRESSION: No acute intracranial pathology or abnormal postcontrast enhancement. Chronic age-related neurodegenerative changes are noted with atrophy focally greatest along the frontal lobes bilaterally. Impression dictated by: Walt Almendarez M.D. 06/17/2025 4:41 PM Dictation Location: [place] [address] Electronically authenticated by: [id number] Y Date: 06/17/2025 16:41 Dictated By: Walt Almendarez M.D. Signed By: 06/17/25 1644 DD/ 40 TD/TT: Cabinet Professional: [facility] HealthcareRadiology Study observation (narrative)[facility] HospitalI HEAD/BRAIN WO/W CONTROrdered By: Radiologist Radiology on 93-04-2891LSFAMissouri Baptist Medical Center Work Phone: [facility] CREATININEon 30-94-9472Otirrnbvim [Mass/Vol]0.63 mg/dLLow0.70 - 1.30 mg/dLMissouri Baptist Medical CenterGFR/1.73 sq M.predicted CKD-EPI (S/P/Bld) [Vol rate/Area]>60>=60 mL/min/1.73m 2NOMS HealthcareInterpretation and review of laboratory resultsAbnormalMissouri Baptist Medical CenterTB EGFR-NON AF JAP[place]ESE>60 >=60 mL/min/1.73m 2NAMG [facility] HealthcareCLINISYNCNOMS HealthcareNo Panel Informationon 75-36-3138Xpwssifviwumarie Torres DO 02/16/2025 2:57 PM Nerve Block Date/Time: 02/16/2025 12:16 PM Performed by: Alvino Torres DO Authorized by: FRANCO Foy Consent: Consent obtained: Written Consent given by: Patient [place] protocol: Procedure explained and questions answered to patient or proxy's satisfaction: yes Patient identity confirmed: Verbally with patient Location: Body area: Trunk Trunk nerve: Lumbar Procedure details: Guidance: fluoroscopy Steroid injected: Dexamethasone Post-procedure details: Procedure completion: [facility] LUMBAR SPINE WO CONon 60-03-0014PdmPh[place] [id number] Magnetic Resonance Report Signed Patient: DUTCH MONIQUE Sr. MR#: [id number] : 1955 Acct:[id number] Age/Sex: 69 / M ADM Date: 07/21/24 Loc: MRI Attending Dr: Maximo Nguyen [employer] Ordering Physician: Maximo Nguyen NP Date of Service: 07/21/24 Procedure(s): MR lumbar spine wo con Accession Number(s): [id number] cc: MITUL RICHMOND ; Maximo Nguyen NP [place] [id number] Patient Name: DUTCH MONIQUE MRN: [id number] date: 1955 Sex: M Assigned Patient Location: MRI Current Patient Location: Accession/Order Number: [id number] Exam Date: 07/21/2024 14:00 Report Date: 07/22/2024 07:46 At the request of: MAXIMO NGUYEN Procedure: MR lumbar spine wo con MR [...] of L3-4, there are disc bulge with slvj-ax-dexijrha bilateral neuroforaminal narrowing and mild canal stenosis. [...] L3-L4, L4-L5 and L5-S1. Electronically authenticated by: EZEKIEL HOLGUIN Date: 07/22/2024 07:46 Dictated By: Ezekiel Holguin M.D. Signed By: 07/22/24 0751 DD/ 0746 TD/TT: Cabinet Professional:TBHRadiology, Radiologist, - 07/22/[address] [address] Magnetic Resonance Report Signed Patient: DUTCH MONIQUE Sr. MR#: [id number] : 1955 Acct:[id number] Age/Sex: 69 / M ADM Date: 07/21/24 Loc: MRI Attending Dr: Maximo Nguyen NP Ordering Physician: Maximo Nguyen NP Date of Service: 07/21/24 Procedure(s): MR lumbar spine wo con Accession Number(s): [id number] cc: MITUL RICHMOND ; Maximo Nguyen NP The [place] [id number] Patient Name: DUTCH MONIQUE MRN: [id number] date: 1955 Sex: M Assigned Patient Location: MRI Current Patient Location: Accession/Order Number: [id number] Exam Date: 07/21/2024 14:00 Report Date: 07/22/2024 07:46 At the request of: MAXIMO NGUYEN Procedure: MR lumbar spine wo con MR [...] of L3-4, there are disc bulge with dsho-up-jwnpkwpo bilateral neuroforaminal narrowing and mild canal stenosis. [...] L3-L4, L4-L5 and L5-S1. Electronically authenticated by: EZEKIEL HOLGUIN Date: 07/22/2024 07:46 Dictated By: Ezekiel Holguin M.D. Signed By: 07/22/24 0751 DD/ 0746 TD/TT: Cabinet Professional: MARY [place] HospitalRadiology Study observation (narrative)[facility] LUMBAR SPINE WO CONOrdered By: Radiologist Radiology on 00-19-1002Y[facility] Work Phone: XR Elbow - left 3 Viewson [id number] [place] [address] XRay Report Signed Patient: DUTCH MONIQUE Sr. MR#: [id number] : 1955 Acct:[id number] Age/Sex: 68 / M ADM Date: 05/24/24 Loc: Attending Dr: Anni Armstrong M.D. Ordering Physician: Anni Armstrong M.D. Date of Service: 05/24/24 Procedure(s): XR elbow LT min 3V Accession Number(s): [id number] cc: MITUL RICHMOND ; Anni Armstrong M.D. The [place] [id number] Patient Name: DUTCH MONIQUE MRN: [id number] date: 1955 Sex: M Assigned Patient Location: Current Patient Location: Accession/Order Number: [id number] Exam Date: 05/24/2024 11:25 Report Date: 05/25/2024 15:00 At the request of: ANNI ARMSTRONG Procedure: XR elbow LT min 3V PROCEDURE: [...] tissue swelling. Bursitis?. Electronically authenticated by: ANNI WALLACE Date: 05/25/2024 15:00 Dictated By: Anni Wallace M.D. Signed By: 05/25/24 1503 DD/ 1500 TD/TT: Cabinet Professional:TBHRadiology, Radiologist, MD - 05/25/2024 [place] [address] XRay Report Signed Patient: DUTCH MONIQUE Sr. MR#: [id number] : 1955 Acct:[id number] Age/Sex: 68 / M ADM Date: 05/24/24 Loc: Attending Dr: Anni Armstrong M.D. Ordering Physician: Anni Armstrong M.D. Date of Service: 05/24/24 Procedure(s): XR elbow LT min 3V Accession Number(s): [id number] cc: MITUL RICHMOND ; Anni Armstrong M.D. The [place] [phone] Patient Name: DUTCH MONIQUE MRN: [id number] date: 1955 Sex: M Assigned Patient Location: Current Patient Location: Accession/Order Number: [id number] Exam Date: 05/24/2024 11:25 Report Date: 05/25/2024 15:00 At the request of: ANNI ARMSTRONG Procedure: XR elbow LT min 3V PROCEDURE: [...] tissue swelling. Bursitis?. Electronically authenticated by: ANNI WALLACE Date: 05/25/2024 15:00 Dictated By: Anni Wallace M.D. Signed By: 05/25/24 1503 DD/ 1500 TD/TT: Cabinet Professional: MARY HealthcareRadiology Study observation (narrative)[facility] HealthcareXR Elbow - left 3 ViewsOrdered By: Radiologist Radiology on 42-36-6314VJII [facility] Work Phone: SEGMENTAL BLOOD PRESSUREon [id number] [address] Cardiology Report Signed Patient: DUTCH MONIQUE Sr. 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 Signed By: 02/22/24110502/22/24 110 DD/ 140 TD/TT: Cabinet Professional:SOPHIAHRadiology, Radiologist, - 02/22/2024 [place] [address] Cardiology Report Signed Patient: DUTCH MONIQUE Sr. 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 Signed By: 02/22/24110502/22/24 110 DD/ 140 TD/TT: Cabinet Professional: MARY ParrENTAL BLOOD PRESSUREOrdered By: Radiologist Radiology on 78-77-4507BUJN [employer] Work Phone: SEGMENTAL BLOOD PRESSUREon 31-29-0264Ksqbqqdtc Study observation (narrative)MARY KasiaXR Elbow - left 3 Viewson 49-00-9912XuuSan [place] [address] XRay Report Signed Patient: DUTCH MONIQUE Sr. MR#: [id number] : 1955 Acct:[id number] Age/Sex: 68 / M ADM Date: 11/24/23 Loc: RAD Attending Dr: Anni Armstrong M.D. Ordering Physician: Anni Armstrong M.D. Date of Service: 11/24/23 Procedure(s): XR elbow LT min 3V Accession Number(s): [id number] cc: MITUL RICHMOND ; Anni Armstrong M.D. [place] [address] Patient Name: DUTCH MONIQUE MRN: [id number] date: 1955 Sex: M Assigned Patient Location: [facility] Current Patient Location: [facility] Accession/Order Number: [id number] Exam Date: 11/24/2023 09:50 Report Date: 11/24/2023 11:30 At the request of: ANNI ARMSTRONG Procedure: XR elbow LT min 3V EXAM: [...] swelling. Follow-up as needed. Electronically authenticated by: KHALIF RANDOLPH Date: 11/24/2023 11:30 Dictated By: Khalif Randolph M.D. Signed By: 11/24/23 1132 DD/ 1130 TD/TT: Cabinet Professional:TANAadiologyamile, Radiologist, - 12/24/2023 [place] [address] XRay Report Signed Patient: DUTCH MONIQUE Sr. MR#: [id number] : 1955 Acct:[id number] Age/Sex: 68 / M ADM Date: 11/24/23 Loc: RAD Attending Dr: Anni Armstrong M.D. Ordering Physician: Anni Armstrong M.D. Date of Service: 11/24/23 Procedure(s): XR elbow LT min 3V Accession Number(s): [id number] cc: MITUL RICHMOND ; Anni Armstrong M.D. The [place] [phone] Patient Name: DUTCH MONIQUE MRN: [id number] date: 1955 Sex: M Assigned Patient Location: [facility] Current Patient Location: [facility] Accession/Order Number: [id number] Exam Date: 11/24/2023 09:50 Report Date: 11/24/2023 11:30 At the request of: ANNI ARMSTRONG Procedure: XR elbow LT min 3V EXAM: [...] swelling. Follow-up as needed. Electronically authenticated by: KHALIF RANDOLPH Date: 11/24/2023 11:30 Dictated By: Khalif Randolph M.D. Signed By: 11/24/23 1132 DD/ 1130 TD/TT: Cabinet Professional: MARY HealthcareRadiology Study observation (narrative)[facility] HealthcareXR Elbow - left 3 ViewsOrdered By: Radiologist Radiology on 16-63-8800SOBS [employer] Work Phone: XR ANKLE RT MIN 3 VIEWSon 36-87-4231HB ANKLE RT MIN 3 VIEWSEXAM: XR ANKLE RT MIN 3 VIEWS HISTORY: [...] Electronically authenticated by: ALEXX MARIE Date: 2023-02-06 13:52[facility] HospitalDischarge Summaryon 36-22-0175Rchjkvnsj SummaryMR#: [id number] [facility] Name: Dutch Monique Admitted: 06/08/2017Discharged: 06/09/2017 Date of : 1955 Physician: Heydi Walls M.D. DISCHARGE SUMMARYDISCHARGE ATTENDING: Dr. Walls.PRINCIPAL DIAGNOSIS: Neck injury following a fall on railing.SECONDARYDIAGNOSES: Chronic obstructive pulmonary disease, epilepsy, andtype 2 diabetes.PROCEDURES PERFORMEDAND TREATMENT RENDERED: CTC, CT neck, x-ray ofabdomen and [facility]. [facility] revealed cervical spondylosis with multi-facet DJD,otherwise no acute injuries. CT neck shows some right subcu emphysema inthe prevertebral tissue from the skull base to the superior mediastinum.X-ray of the pelvis and hip were negative. Esophagram was done at [facility] torule out esophageal rupture. Esophagram came back negative. The patientwas started on normal diet and home medications were resumed. Thepatient's condition at discharge was stable. The patient was seen by PTand OT, which recommended home PT, otherwise the patient was cleared to gohome by both services. The patient was discharged home with a prescriptionfor Percocet and for Colace. Instructions tofollow up with [facility]in [facility] weeks.Electronically Signed by:Heydi Walls M.D. 06/10/2017 12:39 P Heydi Walls M.D. I personally saw this patient on the day of the encounter, performed thekey portion(s) of the service and participated in the management andconfirm the resident's documentation. Please note there may be anadditional personal documentation from me. Date Dict: 06/09/2017/04:39 P/Rell Landrum Trans: 06/10/2017 02:22 A/bernardoDN_JN:[id number]: Mitul Richmond M.D. 3 [facility] [address]PifgnrAwrKing's Daughters Medical Center OhioCB W/DIFFon 83-28-6633Ssbmzahfm Auto #/vol (Bld)1.0 %Normal0.0-2.0The [facility] HospitalComment on above:Order Comment: No: Do not add to previous drawPerformed By: #### 60323 ####[facility] [place] [address], [facility] RANCHOEosinophils/100 leukocytes3.7 %Normal0.0-5.[address] [facility] HospitalComment on above:Order Comment: No: Do not add to previous drawPerformed By: #### 88917 ####[facility] [facility] [place] [address], USAErythrocyte distribution width Auto Ratio (RBC)16.0 %Efosbl22.5-16.9The [facility] HospitalComment on above:Order Comment: No: Do not add to previous drawPerformed By: #### 14485 ####[facility] [place] [address], [facility] RANCHOErythrocytes (RBC)4.80 mill/yx9Zkpael8.30-5.90The [facility] HospitalComment on above:Order Comment: No: Do not add to previous drawPerformed By: #### 46741 ####[facility] [facility] [place] [address], [facility] RANCHOHematocrit (HCT)45.6 %Niiegq60.0-55.0The [facility] HospitalComment on above:Order Comment: No: Do not add to previous drawPerformed By: #### 11377 ####[facility] [facility] [place] [address], [facility] RANCHOHemoglobin mass conc (Bld)15.3 g/hMOctfhu20.9-16.3The [facility] HospitalComment on above:Order Comment: No: Do not add to previous drawPerformed By: #### 33309 ####[facility] [facility] [place] [address], [facility]ANCHOLymphocytes/100 ogrsvcevig96.3 %Znjpbr28.0-40.0The [facility] HospitalComment on above:Order Comment: No: Do not add to previous drawPerformed By: #### 78783 ####[facility] [facility] [place] [address], [place] MCH31.9 sdGiwafx94.0-32.0The [facility] HospitalComment on above:Order Comment: No: Do not add to previous drawPerformed By: #### 79898 ####[facility] [facility] [place] [address], [place] MCHC mass conc (RBC)33.6 g/uJJszphl28.0-36.0The [facility] HospitalComment on above:Order Comment: No: Do not add to previous drawPerformed By: #### 68457 ####[facility] [facility] [place] [address], ZUGUKX97.1 kYSqnobo96.0-100.0The [facility] Comment on above:Order Comment: No: Do not add to previous drawPerformed By: #### 68347 ####[facility] [facility] [place] [address], [facility] RANCHOMETHODNoalThe [facility] HospitalComment on above: Order Comment: No: Do not add to previous drawResult Comment: Automated differential performedNormal RBC MorphologyPerformed By: #### 67412 ####[facility] [facility] [place] [address], [facility] MONOS8.4 %High2-8The [facility] HospitalComment on above:Order Comment: No: Do not add to previous drawPerformed By: #### 31386 ####[facility] [facility] [place] [address], [facility]ANCHONeutrophils/100 fzmnzodkva68.6 %Eaedrp98-14Ooy [facility] HospitalComment on above:Order Comment: No: Do not add to previous drawPerformed By: #### 09048 ####[facility] [facility] [place] [address], [facility] PLAT VGV753 Thou/nx8Nrokiz834-707Eli [facility] HospitalComment on above:Order Comment: No: Do not add to previous drawPerformed By: #### 74625 ####[facility] [facility] [place] [address], [facility] WBC (Leukocytes)5.4 Thou/qa8Tqevav6.0-10.0The [facility] HospitalComment on above:Order Comment: No: Do not add to previous drawPerformed By: #### 56950 ####[facility] [place] [address], USACOMP METABOLIC PANELon 58-12-0386Lzraxds aminotransferase (ALT)20 U/LNormal7-52The [facility] HospitalComment on above:Order Comment: No: Do not add to previous drawPerformed By: #### 43359, 99048, 70508 ####[facility] [place] [address], [place] Albumin3.6 g/dLNormal3.5-5.7The [facility] HospitalComment on above:Order Comment: No: Do not add to previous drawPerformed By: #### 67900, 35736, 75891 ####[facility] [place] [address], USAALKALINE ROTLOS23 IU/OVbspqd97-803Ukd [facility] HospitalComment on above:Order Comment: No: Do not add to previous drawPerformed By: #### 06072, 52194, 44380 ####[facility] [place] [address], USAAspartate aminotransferase (AST)21 U/LNormal 13-39The [facility] HospitalComment on above:Order Comment: No: Do not add to previous drawPerformed By: #### 84354, 11318, 08334 ####[facility] [place] [address], USABilirubin (total)0.6 mg/dLNormal0.3-1.0The [facility] HospitalComment on above:Order Comment: No: Do not add to previous drawPerformed By: #### 56917, 63262, 69834 ####[facility] [place] [address], USACalcium8.5 mg/dLLow8.6-10.3The [facility] Comment on above:Order Comment: No: Do not add to previous drawPerformed By: #### 35593, 81115, 54047 ####[facility] [place] [address], TXYFpamdpuh299 mmol/YLjjlcj43-303Ugb [facility] HospitalComment on above:Order Comment: No: Do not add to previous draw Performed By: #### 06692, 08905, 52326 ####[facility] [place] [address], FBEQR232 mmol/UCvfhzz77-35Ogr [facility] HospitalComment on above:Order Comment: No: Do not add to previous drawPerformed By: #### 51799, 77177, 19228 ####[facility] [place] [address], USACreatinine0.69 mg/dLLow0.70-1.30The [facility] HospitalComment on above:Order Comment: No: Do not add to previous drawPerformed By: #### 79904, 23035, 84105 ####[facility] [place] [address], [place] eGFR (black)mL/min/{1.73_m2}Normal>60The [facility] Comment on above:Order Comment: No: Do not add to previous drawPerformed By: #### 61666, 62693, 90136 ####[facility] [place] [address], USAeGFR (non-black)mL/min/{1.73_m2}Normal>60The [facility] HospitalComment on above:Order Comment: No: Do not add to previous drawPerformed By: #### 82913, 99049, 93264 ####[facility] [place] [address], USAGlucose mass conc72 mg/dL Zijrud10-502Jlw [facility] HospitalComment on above:Order Comment: No: Do not add to previous drawPerformed By: #### 56076, 10741, 08258 ####[facility] [place] [address], [facility] Potassium molar conc4.0 mmol/LNormal3.5-5.1The [facility] HospitalComment on above:Order Comment: No: Do not add to previous drawPerformed By: #### 43921, 96923, 74046 ####[facility] [place] [address], USAProtein5.8 g/dLLow6.0-8.3The [facility] HospitalComment on above:Order Comment: No: Do not add to previous drawPerformed By: #### 57518, 29774, 50511 ####[facility] [place] [address], TRCPqsowd911 mmol/NOgc005-980Uss [facility] HospitalComment on above:Order Comment: No: Do not add to previous drawPerformed By: #### 06385, 29654, 17606 ####[facility] [place] [address], USAUrea nitrogen7 mg/dLNormal7-25The [facility] HospitalComment on above:Order Comment: No: Do not add to previous drawPerformed By: #### 98699, 60144, 88077 ####[facility] [facility] [place] [address], [facility] LACTATE BLOODon 10-16-8730Sgiaxpo4.5 mmol/LNormal.5-2.2The [facility] HospitalComment on above:Order Comment: No: Do not add to previous draw Performed By: #### 43507 ####[facility] [place] [address], USAMAGNESIUM BLOODon 62-44-5435Uzibigrjk5.0 mg/dLNormal 1.9-2.7The [facility] HospitalComment on above:Order Comment: No: Do not add to previous drawPerformed By: #### 97277, 35535, 70292 ####[facility] [place] [address], [facility] PHOSPHORUS BLOODon 98-74-9313Kcvjhmptc3.0 mg/dLNormal2.5-5.0The [facility] HospitalComment on above:Order Comment: No: Do not add to previous drawPerformed By: #### 90494, 00772, 09515 ####[facility] [place] [address], [facility]-RI[facility] RANCHOBASIC METABOLIC PANELon 06-08-2017 Calcium8.7 mg/dLNormal8.6-10.3The [facility] HospitalComment on above:Order Comment: Yes: Add to Previous draw if ablePerformed By: #### 98517 ####[facility] [place] [address], [facility] Qrmokgbf038 mmol/RGnarkn55-923Nmb [facility] HospitalComment on above:Order Comment: Yes: Add to Previous draw if ablePerformed By: #### 64733 ####[facility] [place] [address], [facility] CO225 mmol/AUptemy78-77Mvc [facility] HospitalComment on above: Order Comment: Yes: Add to Previous draw if ablePerformed By: #### 18897 ####[facility] [facility] [place] [address], [facility] Creatinine0.73 mg/dLNormal0.70-1.30The [facility] Comment on above:Order Comment: Yes: Add to Previous draw if ablePerformed By: #### 60587 ####[facility] [place] [address], [facility] RANCHOeGFR (black)mL/min/{1.73_m2}Normal>60The [facility] HospitalComment on above:Order Comment: Yes: Add to Previous draw if ablePerformed By: #### 75452 ####[facility] [place] [address], USAeGFR (non-black)mL/min/{1.73_m2}Normal>60The [facility] HospitalComment on above:Order Comment: Yes: Add to Previous draw if able Performed By: #### 58445 ####[facility] [place] [address], USAGlucose mass conc97 mg/hCLxqblt81-252Mmx [facility] HospitalComment on above:Order Comment: Yes: Add to Previous draw if ablePerformed By: #### 75563 ####[facility] [place] [address], USAPotassium molar conc3.9 mmol/LNormal3.5-5.[address] [facility] HospitalComment on above:Order Comment: Yes: Add to Previous draw if ablePerformed By: #### 47656 ####[facility] [place] [address], NDXXngddk082 mmol/TTwd729-[address] [facility] HospitalComment on above:Order Comment: Yes: Add to Previous draw if ablePerformed By: #### 23860 ####[facility] [place] [address], USAUrea nitrogen6 mg/dLLow 7-25The [facility] HospitalComment on above:Order Comment: Yes: Add to Previous draw if ablePerformed By: #### 47009 ####[facility] [place] [address], USACBC COMPLETE BLOOD COUNTon 18-82-5191Uofqgatlejw distribution width Auto Ratio (RBC)16.3 %Jeaxip88.5-16.[address] [facility] HospitalComment on above:Order Comment: Yes: Add to Previous draw if ablePerformed By: #### 11842 ####[facility] [place] [address], USAErythrocytes (RBC)4.73 mill/qx2Cftgil7.30-5.90The [facility] HospitalComment on above: Order Comment: Yes: Add to Previous draw if ablePerformed By: #### 97003 ####[facility] [facility] [place] [address], [facility] Hematocrit (HCT)45.0 %Mhipiq70.0-55.0The [facility] Comment on above:Order Comment: Yes: Add to Previous draw if ablePerformed By: #### 72557 ####[facility] [facility] [place] [address], [facility] RANCHOHemoglobin mass conc (Bld)15.4 g/wTRuzesb61.9-16.3The [facility] HospitalComment on above:Order Comment: Yes: Add to Previous draw if ablePerformed By: #### 65674 ####[facility] [facility] [place] [address], SMBTMC57.5 xtLyce80.0-32.0The [facility] HospitalComment on above:Order Comment: Yes: Add to Previous draw if ablePerformed By: #### 37814 ####[facility] [facility] [place] [address], [facility]-RI[facility] RANCHOMCHC mass conc (RBC)34.2 g/bQNqslwf38.0-36.[address] [facility] HospitalComment on above:Order Comment: Yes: Add to Previous draw if ablePerformed By: #### 52884 ####[facility] [facility] [place] [address], RVFHJS89.1 gUDymzem42.0-100.[address] [facility] HospitalComment on above:Order Comment: Yes: Add to Previous draw if ablePerformed By: #### 03773 ####[facility] [place] [address].[place] [address], USAPLAT UJB413 Thou/tw6Gizknx 100-400The [facility] HospitalComment on above:Order Comment: Yes: Add to Previous draw if ablePerformed By: #### 07267 ####[facility] [place] [address] [place] [address], [facility]-RI[facility] RANCHOWBC (Leukocytes)9.0 Thou/dl6Pupwhr7.0-10.0The [facility] HospitalComment on above: Order Comment: Yes: Add to Previous draw if ablePerformed By: #### 04117 ####[facility] [place] [address], [facility] ESOPHAGRAMon 76-07-1354VQYIRDOUDSOdtyuldeuvCincinnati VA Medical CenterDepartment of Yplhchsw[address] [place] [address] [id number] Patien t Name: DUTCH MONIQUE : 1955Sex: MAge: Race: WhiteMRN: [id number]. Location: [id number]: [facility] #: [id number] Date: 06/08/2017 3:35:00 PMCompleted Date: 06/08/2017 05:01 PMRequesting Provider: GUERITA HICKS Attending Provider: SHARON EPSTEIN Report Copy To: Signs & Symptoms: DysphagiaHistory: Patient history not availableComments: R/O PerforationExam: ESOPHAGRAMAccession #: [id number] =ESOPHAGRAM 06/08/2017 5:01 PM EDT SIGNS AND SYMPTOMS: Dysphagia TECHNOLOGIST COMMENTS: esophogram to look for perforation s/p fall and fx of hyoid bone 1.4 min fluoro time 3 oz Omni 350 QUESTION FOR THE RADIOLOGIST: R/O Perforation CONTRAST: Contrast: OMNIPAQUE 350 (LOCM), 3 ounce, Oral COMPARISON: none FI NDINGS: 5 fluoroscopic spot images. Fluoroscopy time 1.4 minutes.Normal swallowing mechanism was demonstrated. The upper esophagus showed normal caliber with no evidence of perforation. IMPRESSION:Noevidence of perforation. Approved by:Arcelia Mayo on 06/08/2017 5:09 PM EDT I, Dutch Tripp, have reviewed the images and report and concur with these findings. Electronically signed by:Dutch Tripp. Transcribed by: [email or web address], User Resident: ARCELIA MAYOElectronically Signed by: DUTCH TRIPP@ 06/09/2017 07:05 AMI personally read this/these film(s) with this residentKing's Daughters Medical Center OhioComment on above:Order Comment: R/O PerforationHistory and Physicalon [id number] and PhysicalMR#: [id number] Name: Dutch Monique Admitted: 06/08/2017 Date of : 1955 Attending Physician: Sharon Esptein MD Room #: [id number] Discharge Date: HISTORY AND PHYSICALCHIEF COMPLAINT: Neck [...] his cane at this time, and the canehad impacted in the lowerabdominal area, so he notes some soreness there as well. He also notessomelower back pain, which he says is chronic and not new. He initiallysaid the pain was 8.5/10 in the neck; however, he did not seek treatmentfor a couple of hours until he started developing increasing persistentpain in the neck area following by developing trouble speaking/hoarseness.[facility] where a CT of the neck showed some prevertebral subcutaneousemphysema as well as a fracture of the right portion of the hyoid bone. Hewas then [facility] for furtherevaluation in stable condition.PAST MEDICAL HISTORY: Type 2 diabetes mellitus, epilepsy, COPD/chronicbronchitis, and chronic back pain.PAST SURGICAL HISTORY: Back surgery, right knee ACL surgery,cholecystectomy, nose surgery, and teeth removal.FAMILY HISTORY: Noncontributory.SOCIAL HISTORY: One-half pack per day smoker for at least 14 years. Hehad quit before this time for 23 years, but smoked before then. No alcoholor drug use.MEDICATIONS: Goodell, tizanidine, phenytoin, primidone, Effexor XR, Zocor,lamotrigine, zolpidem, [...] DJD. CTof the neck at outside hospital showsright submandibular soft tissuecontusion associated with soft tissue edema and extensive soft tissueemphysema, dissecting superiorly through the right prevertebral andparapharyngeal/perivascular softtissues to right skull base and inferiorlythrough the prevertebral and right anterolateral neck soft tissue tosuperior mediastinum as well as a mildly displaced fracture in the rightportion of the hyoid bone. There is no pneumothorax in visualized upperlungs and intact mandible. There are bilateralmaxillary antrostomychanges with mild mucosal thickening in the [...] respiratory rate 23, blood pressure 138/67, O2 rkwfocizqy69% on room air.GENERAL: No acute distress. Hoarseness when speaking.HEENT: Normocephalic, atraumatic. Pupils equally round, reactive tolight.NECK: Well demarcated line of bruising on the left across the neck. Nosubq air felt.CHEST AND LUNGS: Clear to auscultation bilaterally.CARDIOVASCULAR: Regular rate and rhythm. No murmurs appreciated.ABDOMINAL EXAM: Soft, nondistended, mild tenderness topalpation diffuselywith mild rebound tenderness.EXTERNAL GENITALIA/RECTAL: Deferred.LYMPHATIC: No lymphadenopathy appreciated.EXTREMITIES: Moves all extremities x4. No edema or tenderness other thanin the left wrist.NEUROLOGICAL: Alert and oriented x3. No focal motor-sensory deficits.IMPRESSION: The patient is a 61-year-old male, who suffered a traumaticfall on his neck and now presents with increased gpmpuuur-ha-nlparh painand hoarseness with imaging showing prevertebral subcutaneous emphysemaaswell as a mildly displaced fracture in the [...] in the management andconfirm the resident's documentation. Pleasenote there may be anadditional personal documentation from me. Date Dict: 06/08/2017/12:48 P/WYATT Marshallate Trans: 06/08/2017 08:50 P/mmoDN_JN:[id number]'s Daughters Medical Center OhioTOX PANEL URINEon THCNegativeNormalNEGATIVEThe [facility] HospitalComment on above:Order Comment: Yes: Add to Previous draw if ablePerformed By: #### [id number] ####[facility] [place] [address], USABARBITURATESPositiveAbnormal NEGATIVEThe [facility] HospitalComment on above:Order Comment: Yes: Add to Previous draw if ablePerformed By: #### [id number] ####[facility] [place] [address], USAMONO AMPHETNegative NormalNEGATIVEThe [facility] HospitalComment on above:Order Comment: Yes: Add to Previous draw if ablePerformed By: #### [id number] ####[facility] [place] [address], [place] PROPOXYPHENENegativeNormalNEGATIVEThe [facility] HospitalComment on above:Order Comment: Yes: Add to Previous draw if ablePerformed By: #### [id number] ####[facility] [place] [address], USATRICYCLICSNegativeNormalNEGATIVEThe [facility] HospitalComment on above:Order Comment: Yes: Add to Previous draw if ablePerformed By: #### [id number] ####[facility] [place] [address], USAUrine, benzodiazepines presenceNegativeNormalNEGATIVEThe [facility] Charles HospitalComment on above:Order Comment: Yes: Add to Previous draw if ablePerformed By: #### [id number] ####[facility] [place] [address], USAUrine, cocaine presenceNegativeNormalNEGATIVE The [facility] Charles HospitalComment on above:Order Comment: Yes: Add to Previous draw if ablePerformed By: #### [id number] ####[facility] [place] [address], USAUrine, methadone presence NegativeNormalNEGATIVEThe [facility] HospitalComment on above: Order Comment: Yes: Add to Previous draw if ablePerformed By: #### [id number] ####[facility] [place] [address], [place] Urine, opiates presencePositiveAbnormalNEGATIVEThe [facility] HospitalComment on above:Order Comment: Yes: Add to Previous draw if ablePerformed By: #### [id number] ####[facility] [place] [address], USAUrine, phencyclidine presenceNegativeNormalNEGATIVEThe [facility] HospitalComment on above:Order Comment: Yes: Add to Previous draw if ablePerformed By: #### [id number] ####[facility] [place], [place] [address]E.[place] [address], [facility] Vital Signs Date TimeVital SignValuePerforming WombegbtlPnrjtoga32-21-9665 10:55-0400Body .26 cmDaniel Richmond II Work Phone: [facility]10-20-2025 10:55-0400 Body mass index (BMI) [Ratio]21.1 kg/z9Ntngzg Richmond II Work Phone: 1(621)372-[address] [place], [place] 4523310-20-2025 10:55-0400 Body kgDaslade Richmond II Work Phone: 1(089)[address] [place], [place] 3810710-20-2025 10:55-0400 Diastolic blood mxbicoqo67 mm[Hg]Mitul Richmond II Work Phone: 1(987)996-[address] [place], [place] 4523310-20-2025 10:55-0400 Systolic blood xejykmac727 mm[Hg]Mitul Richmond II Work Phone: 1(885)[address]09-16-2025 11:29-0400 Diastolic blood mm[Hg]Mitul Richmond II Work Phone: 1(738)[address] [place], [place] 3810709-16-2025 11:29-0400 Heart rate82 /minDeamon Richmond II Work Phone: 1(857)[address] [place], [place] 3810709-16-2025 11:29-0400 SaO2% (BldA) [Mass fraction]98 %Mitul Richmond II Work Phone: 1(646)[address] [place], [place] 3810709-16-2025 11:29-0400 Systolic blood vmyuvokh070 mm[Hg]Mitul Richmond II Work Phone: 1(387)[address] [place], [place] 3810709-08-2025 13:55-0400 Body ffrnwi180.3 cmAmerica Hemmer PA Work Phone: 1(264)624-[address] [place], [place] [address]Kjfzofmpwn38-15-5458 13:55-0400Body mass index (BMI) [Ratio]22.27 kg/d6Nymqm Hemmer PA Work Phone: [facility] CenterYatxgwambz51-72-3194 13:55-0400Body .4 kg America Hemmer PA Work Phone: [facility] CenterXgeyvmrwcs43-74-8989 13:55-0400Diastolic blood mm[Hg]America Hemmer PA Work Phone: [facility] CenterBqrocsurmd70-35-2389 13:55-0400Heart rate74 /min America Hemmer PA Work Phone: [facility] CenterOwrkbbvboo45-35-2373 13:55-0400Respiratory rate16 /minKaren Hemmer PA Work Phone: [place] [address]Kmkkbixiwr84-56-5310 13:55-8174RdI8% (BldA) [Mass fraction]95 %America Hemmer PA Work Phone: [facility] CenterYhkdjjwqvz92-79-3391 13:55-0400Systolic blood ievgphsm011 mm[Hg]America Hemmer PA Work Phone: 1(714)964-[address] [place], [place] [address]Ppjsidepmu53-43-1635 13:50-0400Body pbextv113.3 cmKaren Hemmer PA Work Phone: 1(186)[facility]-[address] [place], [place] [address]Oduylrdrkj59-01-8439 13:50-0400Body mass index (BMI) [Ratio]22.71 kg/s2Kkzvd Hemmer PA Work Phone: 1(700)[facility]-[address] [place], [place] [address]Cjosgqoubj12-44-2245 13:50-0400Body nmthue04.76 kgKaren Hemmer PA Work Phone: 1(810)[facility]-[address] [place], [place] [address]Mgmqslaxck34-65-8312 13:50-0400Diastolic blood zeynqyfq19 mm[Hg]America Hemmer PA Work Phone: 1(758)897-[address] [place], [place] [address]Dsqtbgevvd50-34-7956 13:50-0400Heart rate78 /min America Hemmer PA Work Phone: 1(314)[facility]-1812[facility] CenterFzzakniovp54-58-0952 13:50-0400Respiratory rate16 /minKaren Hemmer PA Work Phone: 1(253)[facility]-[address] [place], [place] [address]Vmwtqqgvfa03-52-2327 13:50-1530BfR6% (BldA) [Mass fraction]98 %America Hemmer PA Work Phone: 1(766)[facility]-[address] [place], [place] [address]Drinlvsunz73-83-9215 13:50-0400Systolic blood mm[Hg]America Hemmer PA Work Phone: 1(589)[facility] [place], [place] [address]Uekhyvxhft39-68-4566 12:49-0400Body kxehgu585.26 cmDaslade Richmond II Work Phone: 1(509)347-[address] [place], [place] 4523308-13-2025 12:49-0400 Body mass index (BMI) [Ratio]21.7 kg/q2Fazuuwslade Richmond II Work Phone: 1(313)000-[address] [place], [place] 5778808-13-2025 12:49-0400 Body .67 kgDaslade Richmond II Work Phone: [facility]08-13-2025 12:49-0400 Diastolic blood lcihwhjb63 mm[Hg]Mitul Richmond II Work Phone: 1(000)393-[address] [place], [place] 5778808-13-2025 12:49-0400 Heart rate79 /Ashely Richmond II Work Phone: 1(083)598-[address] [place], [place] 4523308-13-2025 12:49-0400 Respiratory rate16 /Ashely Richmond II Work Phone: 1(147)057-[address] [place], [place] 5778808-13-2025 12:49-0400 SaO2% (BldA) [Mass fraction]96 %Mitul Richmond II Work Phone: 1(013)828-[address] [place], [place] 5778808-13-2025 12:49-0400 Systolic blood mm[Hg]Mitul Richmond II Work Phone: 1(595)728-[address] [place], [place] 5778808-07-2025 11:19-0400 Body ixmphl785.3 cmNicholas Brown DPM Work Phone: [facility] CenterJevtwxwbfr36-59-8747 11:19-0400Body mass index (BMI) [Ratio]23.48 kg/x1Gjxbbual Brown DPM Work Phone: [facility] CenterIwpkbdzfkj92-35-5380 11:19-0400Body rmwzoy92.12 kgNicholas Brown DPM Work Phone: [facility] CenterLxtwfnknze15-03-8609 11:19-0400Respiratory rate16 /minNicholas Brown DPM Work Phone: [facility] CenterUoqqdyvmgb36-91-8239 11:53-0400Body yxfbnh466.3 cmNicholas Brown DPM Work Phone: [facility] CenterBneigzjssj97-68-3851 11:53-0400Body mass index (BMI) [Ratio]23.48 kg/u1WzhlwpkjFrandy Beltrán DPM Work Phone: [facility] CenterGkntojwwzs61-21-4048 11:53-0400Body .12 kgFrandy Beltrán DPM Work Phone: noRanken Jordan [facility] Specialty HospitalAhorpcpouu31-69-6326 11:53-0400Respiratory rate18 /minFrandy Beltrán DPM Work Phone: [facility] CenterGdmbubytgu38-24-0579 13:07-0400Body .3 cmKaren Hemmer PA Work Phone: [facility] CenterAowfyrnwhi41-90-2534 13:07-0400Body mass index (BMI) [Ratio]23.48 kg/v9Mgyrb Hemmer PA Work Phone: [facility] CenterNllihokhrv40-18-2808 13:07-0400Body .12 kgKaren Hemmer PA Work Phone: [facility] CenterNzoiuxidfh31-12-2055 13:07-0400Diastolic blood cychnlra64 mm[Hg]America Hemmer PA Work Phone: [facility] CenterXhcipmsfwm68-42-5175 13:07-0400Heart rate72 /min America Hemmer PA Work Phone: [facility] CenterQqwheyvopq08-95-3048 13:07-0400Respiratory rate16 /minKaren Hemmer PA Work Phone: [facility] CenterQqylsqlsmk73-87-4196 13:07-0574VaL1% (BldA) [Mass fraction]97 %America Hemmer PA Work Phone: [facility] CenterPfbveopnru21-87-3387 13:07-0400Systolic blood juhncdxw076 mm[Hg]America Hemmer PA Work Phone: [facility] CenterRiggpqawdf91-02-4239 11:33-0400Diastolic blood lbqcohch57 mm[Hg]Alvino Torres DO Work Phone: NORank[facility] HospitalOagldfohdn13-16-4059 11:33-0400Heart rate72 /min Alvino Torres DO Work Phone: noRanken [facility] HospitalTkowjrhftn62-84-0124 11:33-0400Systolic blood hjogenyu182 mm[Hg]Alvino Torres DO Work Phone: noRanken [facility]ty HospitalEovdcscwaj48-08-2394 13:17-0400Body qpgqli061.3 cmAeldontess Goldberg PA Work Phone: noRanken [facility] HospitalEevgqsqlqg06-50-9682 13:17-0400Body mass index (BMI) [Ratio]22.15 kg/m2Melissa Yusuf PA Work Phone: noRank[facility] HospitalNezfmijrmb84-28-4049 13:17-0400Body ezerkk60.04 kgChrissytess Goldberg PA Work Phone: noRank[facility] HospitalRhwsldmlue09-40-6239 13:17-0400Diastolic blood locwjtnb26 mm[Hg]Melissa Goldberg PA Work Phone: noRank[facility]ty HospitalBolonvaukb78-59-7394 13:17-0400Systolic blood ihwyjhal089 mm[Hg]Melissa Yusuf PA Work Phone: noRank[facility]ty HospitalEbtkjgysgd20-60-3310 14:28-0400Body .3 cmAmerica Shanemer PA Work Phone: [facility] CenterKpbpaibiqb52-12-5120 14:28-0400Body mass index (BMI) [Ratio]21.62 kg/t3Xrtou Hemmer PA Work Phone: [facility] CenterUvgkrykcwk96-73-3842 14:28-0400Body mulrud55.41 kgVargheseen Hemmer PA Work Phone: [facility] CenterWwyiwoythw03-94-1789 14:28-0400Diastolic blood mkcyxjev58 mm[Hg]America Hemmer PA Work Phone: [facility] HospitalIshpabdoge27-44-3559 14:28-0400Heart rate72 /min America Hemmer PA Work Phone: [facility] HospitalEeurigdoyw76-01-4239 14:28-0400Respiratory rate16 /minVargheseen Hemmer PA Work Phone: [facility] CenterTyzrkqbtga08-34-4943 14:28-8528KzR3% (BldA) [Mass fraction]97 %America Hemmer PA Work Phone: [facility] HospitalIhaimhjezh41-80-9412 14:28-0400Systolic blood hsvnmlto467 mm[Hg]America Hemmer PA Work Phone: [facility] HospitalVljjfucijf38-94-0596 13:29-0500Body hneiki181.3 cmVargheseen Hemmer PA Work Phone: [facility] CenterYrcrqdfaxf81-85-0936 13:29-0500Body mass index (BMI) [Ratio]22.68 kg/a0Vssvi Hemmer PA Work Phone: [facility] CenterQleoakhyro51-38-0381 13:29-0500Body .67 kgVargheseen Hemmer PA Work Phone: [facility] CenterVhtheedybq17-09-7120 13:29-0500Diastolic blood okirbvve05 mm[Hg]America Hemmer PA Work Phone: [facility] CenterQxwdfjgggo49-42-6594 13:29-0500Heart rate71 /min America Hemmer PA Work Phone: [facility] CenterBzekljiioj53-05-7008 13:29-0500Respiratory rate16 /minVargheseen Hemmer PA Work Phone: [facility] CenterPyswlnjyhr89-48-8669 13:29-0198BsI5% (BldA) [Mass fraction]97 %America Hemmer PA Work Phone: [facility] CenterDovifppiyz40-61-6493 13:29-0500Systolic blood zcwxaqeg851 mm[Hg]America Hemmer PA Work Phone: [facility] HospitalBnlgnagcne96-85-5823 12:54-0500Diastolic blood xbktynud85 mm[Hg]Alvino Torres DO Work Phone: [facility] HospitalFdewisidsn12-18-1206 12:54-0500Heart rate81 /min Alvino Torres DO Work Phone: [facility] HospitalWrllzmpooc30-58-5232 12:54-1447XkX9% (BldA) [Mass fraction]96 %Alvino Torres DO Work Phone: noRanken Jordan [facility] Specialty HospitalEjzwjcpbzj37-82-1567 12:54-0500Systolic blood qgevspcm455 mm[Hg]Alvino Torres DO Work Phone: [facility] CenterAgrhwzufwd50-61-4846 13:27-0500Body mass index (BMI) [Ratio]23.18 kg/h0KqnxmfMaximo Nguyen [employer] Work Phone: [facility] CenterXudnthwgij92-91-1064 13:27-0500Body ieggdp72.22 kgMaximo Nguyen [employer] Work Phone: [facility] CenterSfpgvcxype34-56-7855 13:27-0500Diastolic blood ftzjrsoa54 mm[Hg]Maximo Nguyen [employer] Work Phone: [facility] CenterJisseqdjzr46-55-6066 13:27-0500Heart rate76 /min Maximo Nguyen [employer] Work Phone: [facility] CenterNbkwwzagoc22-56-4573 13:27-0500Systolic blood senyhnhn564 mm[Hg]Maximo Nguyen [employer] Work Phone: [facility] CenterTcmaglkdmo92-46-5819 12:55-0500Body bbhlle972.3 cmVargheseen Hemmer PA Work Phone: [facility] CenterAwcxntmflw00-23-6380 12:55-0500Body mass index (BMI) [Ratio]22.59 kg/e0Pefbw Hemmer PA Work Phone: [facility] CenterNcscmkywmg88-26-6408 12:55-0500Body vpysrs42.4 kg America Hemmer PA Work Phone: [facility] CenterBzxhjcihjy99-68-5034 12:55-0500Diastolic blood mm[Hg]America Hemmer PA Work Phone: [facility] CenterIvvupcbrle45-62-9095 12:55-0500Heart rate62 /min America Hemmer PA Work Phone: [facility] CenterBawvlgppiu26-27-1486 12:55-0757OdS5% (BldA) [Mass fraction]99 %America Hemmer PA Work Phone: [facility] CenterTuvxltjchl60-80-0093 12:55-0500Systolic blood mm[Hg]America GAMEZ Work Phone: [facility] CenterNpoycdbzcr19-22-6754 12:39-0400Diastolic blood wmodapaq51 mm[Hg]Haidaniel Torres DO Work Phone: [facility] CenterDfvwxuhafy73-06-3887 12:39-0400Heart rate79 /min Christbirder Melissa DO Work Phone: [facility] CenterEkwpdfyaou30-57-3310 12:39-3230DtL9% (BldA) [Mass fraction]94 %Christdaniel Torres DO Work Phone: [facility] CenterGstkpiurta04-01-3939 12:39-0400Systolic blood hugnehqb473 mm[Hg]Alvino Torres DO Work Phone: [facility] CenterGjhrdgwomk91-91-6086 14:19-0400Body .3 cmFrandy Beltrán DPM Work Phone: [place] [address]Tkkldlabuz76-18-2563 14:19-0400Body mass index (BMI) [Ratio]22.45 kg/i5TemvwdcyFrandy Beltrán DPM Work Phone: [place] [address]Ufmrjvmssq85-28-4481 14:19-0400Body uqcuhu73.95 kgFrandy Beltrán DPM Work Phone: [place] [address]Avfemykqna76-03-5121 14:19-0400Diastolic blood amlfezrm48 mm[Hg]Frandy Beltrán DPM Work Phone: [place] [address]Hdvdbvzgbk25-41-2164 14:19-0400Heart rate75 /min Frandy Beltrán DPM Work Phone: [place] [address]Kueedguixh78-10-4920 14:19-0400Respiratory rate18 /minFrandy Beltrán DPM Work Phone: [place] [address]Yudgvnisdt82-14-3775 14:19-0400Systolic blood mm[Hg]Frandy Beltrán DPM Work Phone: [place] [address]Orzbtyjhqh55-33-7250 13:20-0400Body mass index (BMI) [Ratio]22.45 kg/b9IhinnvMaximo Nguyen [employer] Work Phone: [facility] HospitalGviamqaefz87-41-9395 13:20-0400Body fggcwe52.95 kgMaximo Nguyen [employer] Work Phone: [facility] HospitalRdsfrpydke33-83-3301 13:20-0400Diastolic blood nselepux54 mm[Hg]Maximo Nguyen [employer] Work Phone: [facility] HospitalNhduffhrzj73-37-1169 13:20-0400Heart rate76 /min Maximo Nguyen [employer] Work Phone: [facility] HospitalGrwuwrifkh03-56-3091 13:20-0400Systolic blood mm[Hg]Maximo Nguyen [employer] Work Phone: [facility] HospitalOrgyagomye83-04-1329 13:02-0400Body xrxqhe480.3 cmMicjunaid Murrietas DO Work Phone: [facility]05-22-2024 13:02-0400Body mass index (BMI) [Ratio]21.41 kg/j7RxyjfdaMarizol Whittakerillis DO Work Phone: [facility] HospitalSiriusDecisions Albvzq98-40-0413 13:02-0400Body ojjijr43.77 kgMichaeabimbola Whittakerillis DO Work Phone: [facility]05-22-2024 13:02-0400Diastolic blood mmwfdvpe12 mm[Hg]Marizol Murrietaadrienne DO Work Phone: [facility]05-22-2024 13:02-0400Heart rate 79 /minMichaeabimbola Murrietas DO Work Phone: [facility] HospitalIvivi Technologies [facility] HospitalLogvlg50-91-3321 13:02-0400Systolic blood ueklhygu027 mm[Hg]Marizol Murrietas DO Work Phone: [facility] Encounters Encounter DateEncounter TypeCare ProviderFacilityStart: 08-25-2025 End: 86-01-9192plembketdhYkbrwr Berry II Work Phone: -[facility] [place]vueStart: 08-25-2025 End: 29-84-5174Udabiba encounter procedureChrisdeni Mcgowan DO-[facility] [place] Work Phone: Start: 08-15-2025 End: 65-76-8995KrskiqVdoorh B Berry MD Work Phone: [facility] MedinceComment on above: Localization-related epilepsy (HCC)Start: 08-08-2025 End: 09-77-1068vkuzzobmxwZiknxw Richmond II Work Phone: 9(622)822-5546526-0101-[facility]qnqnpc Health NeurosurgeryStart: 08-08-2025 End: 21-00-4592Bplmpku encounter procedureEric Tamia Garcia [facility] Work Phone: start: 08-01-2025 End: 65-86-6576BehldvNjmirk B Berry MD Work Phone: [facility] MedinceComment on above:Degenerative disc disease at L5-S1 levelStart: 07-18-2025 End: 09-33-8007IhmzgaBtaja M Hemmer PA Work Phone: [facility] MedinceComment on above: Localization-related epilepsy (HCC)Start: 07-05-2025 End: 40-26-9111akdovjtbgdBjggnx Richmond II Work Phone: [facility] Work Phone: Start: 07-05-2025 End: 18-71-8587Aacousm encounter procedureChrisdeni Mcgowan DO-[facility] [place] Work Phone: Start: 06-27-2025 End: 69-10-0151Dokecichristopher GAMEZ Work Phone: [facility] MedinceStart: 06-27-2025 End: 91-90-5304Ztyptuchristopher GAMEZ Work Phone: [facility] MedinceStart: 06-27-2025 End: 17-55-5146Jvbljf outpatient visit 15 minutesAmerica GAMEZ Work Phone: [facility] MedinceComment on above:Ingrown hair (Primary Dx); Fall, initial encounter; Gait instabilityStart: 06-27-2025 End: 86-07-9696hhwslvpllbXUWYBTonia Thompson AvailableStart: 06-17-2025 End: 06-47-7352Ncdzvydra Result EncounterGeneric External Data ProviderNOMS External Department UnsolicitedStart: 06-17-2025 End: 10-81-5279Udieycadw Result EncounterGeneric External Data ProviderNOMS External Department UnsolicitedStart: 06-15-2025 End: 82-04-8129Upwhpx Erick GAMEZ Work Phone: [facility] MedinceStart: 06-15-2025 End: 37-79-1719Uyumvuchristopher GAMEZ Work Phone: [facility] MedinceStart: 06-15-2025 End: 92-87-3439Tngfbi outpatient visit 25 minutesAmerica GAMEZ Work Phone: [facility] MedinceComment on above:Degenerative disc disease at L5-S1 level (Primary Dx); Localization-related epilepsy (HCC); Tobacco dependence; Falls frequently; Gait instability; Panlobular emphysema (HCC)Start: 06-15-2025 End: 69-33-7902fdwgumtqqoOZRJETonia Thompson AvailableStart: 06-14-2025 End: 72-29-4627WywocaOednoz B Berry MD Work Phone: [facility] Family MedinceComment on above: Localization-related epilepsy (HCC)Start: 06-01-2025 End: 71-15-8452ywlnjawsclVdnlvu Berry II Work Phone: [facility] Work Phone: Start: 06-01-2025 End: 41-00-6633Ysksrwp encounter procedureShi Beard APRN-FNP-C-[facility] [place] Work Phone: Start: 05-26-2025 End: 91-72-5140Hkpalnling Beltrán DPM Work Phone: [facility] CI PODIATRYStart: 05-26-2025 End: 92-99-0051Mskzjo flowsArtur A Brown DPM Work Phone: [facility] CI PODIATRYStart: 05-26-2025 End: 15-08-4820Uqsjbgz encounter procedureNicbo Beltrán DPM Work Phone: [facility] CI PODIATRYComment on above:Diabetes mellitus due to underlying condition with diabetic polyneuropathy, unspecified whether long term care administrator insulin use (HCC) (Primary Dx); Pain due to onychomycosis of toenails of both feetStart: 05-26-2025 End: 42-85-2603skssynzzkiGNNJLNZG A BROWNNot AvailableStart: 05-10-2025 End: 99-85-5982KfcmklXusvah B Berry MD Work Phone: [facility] CI FMComment on above:Degenerative disc disease at L5-S1 levelStart: 17-85-2381Evh-patient / Non-visitTifExcela [facility] Work Phone: Start: 03-17-2025 End: 27-94-9387Zndtolling Beltrán DPM Work Phone: [facility] CI PODIATRYStart: 03-17-2025 End: 34-53-0265Gkulwm Curt Beltrán DPM Work Phone: [facility] CI PODIATRYStart: 03-17-2025 End: 47-54-9178jizsmmmdtxDXEENNFL A BROWNNot AvailableStart: 03-17-2025 End: 05-49-7776Ecyxnus encounter procedureFrandy Beltrán DPM Work Phone: [facility] CI PODIATRYComment on above:Diabetes mellitus due to underlying condition with diabetic polyneuropathy, unspecified whether long term care administrator insulin use ([facility]) (Primary Dx); PVD (peripheral vascular disease) ([facility]); Pain due to onychomycosis of toenails of both feetStart: 03-15-2025 End: 88-47-1705Xlhlri Erick GAMEZ Work Phone: [facility] CI FMStart: 03-15-2025 End: 11-53-9775Plwywx Erick GAMEZ Work Phone: [phone] CI FMStart: 03-15-2025 End: 11-64-3448Fnblcz outpatient visit 25 minutesAmerica GAMEZ Work Phone: [phone] CI FMComment on above:Degenerative disc disease at L5-S1 level (Primary Dx); Other chronic pain; Falls frequently; Gait instability; Localization-related epilepsy ([facility])Start: 03-15-2025 End: 61-49-2743kjtmfpovaeSDMZP M HEMMERNot AvailableStart: 03-01-2025 End: 10-06-4388PgqjycVnotas B Berry MD Work Phone: [phone] CI FMComment on above:Degenerative disc disease at L5-S1 levelStart: 02-28-2025 End: 80-28-4624NxfcgsOhyavw B Berry MD Work Phone: [phone] CI FMComment on above:Degenerative disc disease at L5-S1 levelStart: 02-23-2025 End: 25-77-9644WwvturLpisrp B Berry MD Work Phone: [phone] CI FMComment on above:Degenerative disc disease at L5-S1 levelLumbar radiculopathy; Degenerative disc disease at L5-S1 levelStart: 02-16-2025 End: 33-39-1562Bejrrb flowsheetChristopher Melissa DO Work Phone: ANA BELLEVUEStart: 02-16-2025 End: 73-31-3282Ddhkfu flowsheetChristopher Melissa DO Work Phone: ANA BELLEVUEStart: 02-16-2025 End: 36-67-7343Tyfaugc encounter procedureChristopher Melissa DO Work Phone: aNA BELLEVUEComment on above:Lumbar radiculopathy (Primary Dx); Lumbosacral radiculopathyStart: 02-16-2025 End: 15-96-7894aqvfxnrncjPWHXCWSMIQG HASSETTNot AvailableStart: 02-10-2025 End: 11-94-6826Xvuezf outpatient visit 15 minutesMelissa GAMEZ Work Phone: aNA BELLEVUEComment on above:Lumbar radiculopathy (Primary Dx); Degenerative disc disease at L5-S1 level; Gait instability; Essential tremor; Polypharmacy; Seizure disorder (CMS/HCC); PolyneuropathyStart: 02-10-2025 End: 35-42-1335wubimvgfmwNEUK HILLNot AvailableStart: 01-27-2025 End: 66-88-5320YyyqcgRtpdku B Berry MD Work Phone: [facility] CI FMComment on above:Degenerative disc disease at L5-S1 levelStart: 01-24-2025 End: 70-83-6685JadfpyChqbci B Berry MD Work Phone: [facility] CI FMComment on above:Degenerative disc disease at L5-S1 levelStart: 01-13-2025 End: 06-84-4043Fawryq outpatient visit 25 minutesAmerica GAMEZ Work Phone: [facility] CI FMComment on above:Contusion of left knee, subsequent encounter (Primary Dx); Primary hypertension (CMS/HCC); Abnormal gait; Falls frequently; Degenerative disc disease at L5-S1 level; Other chronic painStart: 01-13-2025 End: 91-98-2027bgalomimfxENROC M HEMMERNot AvailableStart: 12-20-2024 End: 53-17-3932FxlsvyTofxfzsz Riedy MAANA BELLEVUEComment on above:Degenerative disc disease at L5-S1 levelStart: 12-14-2024 End: 85-83-8500Uevcjn outpatient visit 25 minutesAmerica GAMEZ Work Phone: [facility] CI FMComment on above:Degenerative disc disease at L5-S1 level (Primary Dx); Panlobular emphysema (CMS/HCC); Primary hypertension (CMS/HCC); Simple chronic bronchitis (CMS/HCC); Tobacco dependenceStart: 12-14-2024 End: 46-68-9144sxsrbyqiijSRMBL M JULIJennifer AvailableStart: 12-13-2024 End: 00-52-4538JmikdyFcarhz B Berry MD Work Phone: [facility] CI FMComment on above:Localization-related epilepsy (CMS/HCC)Start: 11-25-2024 End: 43-88-7217SecknpJegpck B Berry MD Work Phone: [facility] CI FMComment on above:Degenerative disc disease at L5-S1 levelStart: 10-27-2024 End: 61-23-3929YkozwoNxryzi B Berry MD Work Phone: [facility] CI FMComment on above:Localization-related epilepsy (CMS/HCC)Start: 10-26-2024 End: 40-90-6097Cohkcz flowsheetChristopher Melissa DO Work Phone: aNA BELLEVUEStart: 10-26-2024 End: 92-05-5115Atbliv flowsheetChristopher Melissa DO Work Phone: aNA BELLEVUEStart: 10-26-2024 End: 01-00-5071Ktqfjsi encounter procedureChristopher Melissa DO Work Phone: ANA BELLEVUEComment on above:Lumbar radiculopathy (Primary Dx); Lumbosacral radiculopathyStart: 10-26-2024 End: 47-10-1920EivpwpCdziyt B Berry MD Work Phone: [facility] CI FMComment on above:Localization-related epilepsy (CMS/HCC)Start: 10-25-2024 End: 38-02-5939FpukvuHbmlna B Berry MD Work Phone: [facility] CI FMComment on above:Degenerative disc disease at L5-S1 levelStart: 10-19-2024 End: 66-93-6622UxykmqMscnat B Berry MD Work Phone: [facility] CI FMComment on above:Degenerative disc disease at L5-S1 levelStart: 09-28-2024 End: 35-77-7835Czuzxg outpatient visit 25 minutesEleazaryamile Jose Angel GIL Work Phone: NOMS [place] STATE ROUTEComment on above:Lumbar radiculopathy (Primary Dx); Essential tremor; Gait instability; Polypharmacy; Seizure disorder (CMS/HCC)Start: 09-28-2024 End: 97-29-7927YnpiznCmnneb B Berry MD Work Phone: [facility] CI FMComment on above:Localization-related epilepsy (CMS/HCC)Start: 09-22-2024 End: 36-51-1260YeutmkEozqtjs Steffen DOMÍNGUEZ CI FMComment on above:Degenerative disc disease at L5-S1 levelStart: 09-20-2024 End: 19-59-7962CwyuqyJaagezzf Darrelcarl DOMÍNGUEZ [place] STATE ROUTEComment on above: Degenerative disc disease at L5-S1 levelStart: 08-31-2024 End: 10-92-2728Mpvnsw flowsLux GAMEZ Work Phone: [facility] CI FMStart: 08-31-2024 End: 09-53-7701Rbfvxk flowsLux GAMEZ Work Phone: [facility] CI FMStart: 08-31-2024 End: 76-94-4488Nzraldq encounter Gray GAMEZ Work Phone: [facility] CI FMComment on above:Medicare annual wellness visit, subsequent (Primary Dx); ACP (advance care [...] Tobacco dependence due to cigarettes; Tremor; Visual impairmentStart: 08-31-2024 End: 52-80-4979wgdrlailgtLSBQWTonia Thompson AvailableStart: 08-30-2024 End: 96-96-2589BwxjxvIqgazAshley BAKER CI FMComment on above:Localization- related epilepsy (CMS/HCC); Degenerative disc disease at L5-S1 levelStart: 08-20-2024 End: 85-55-4492NaowbsTvvamu Morris NP Work Phone: NOM[facility] [place] ROUTEComment on above:Degenerative disc disease at L5-S1 levelStart: 08-16-2024 End: 19-04-2531Xiylyssmo encounterLogan Maria Luz [address] Comment on above:Med RefillStart: 08-03-2024 End: 02-76-7284Dveyla flowsheetChristopher Melissa DO Work Phone: N[facility] [place] [facility] ROUTEStart: 08-03-2024 End: 68-40-8617Hlrtes flowsheetChristopher Melissa DO Work Phone: [facility] [place] ROUTEStart: 08-03-2024 End: 78-57-5987Oozhqpm encounter procedureChristopher Melissa DO Work Phone: [facility] [place] STATE ROUTEComment on above:Lumbar radiculopathy (Primary Dx); Lumbosacral radiculopathyStart: 08-03-2024 End: 81-92-3766lstltthudeYBBDUSUCTVA HASSETTNot AvailableStart: 07-28-2024 End: 80-19-9682UigiooPegcp Dukles LPNNNBA CI FMComment on above:Degenerative disc disease at L5-S1 levelStart: 07-26-2024 End: 85-51-4804LocmtqIubtnd B Berry MD Work Phone: [facility] CI FMComment on above:Depressive disorder ([facility]); Allergic rhinitis, unspecified seasonality, unspecified trigger; Localization-related epilepsy (CMS/HCC)Start: 07-26-2024 End: 83-37-9240VptircYlokkzk Steffen DOMÍNGUEZ CI FMComment on above:Degenerative disc disease at L5-S1 levelStart: 07-22-2024 End: 07-26-2516Kqbwtogpq Result EncounterMaximo Nguyen NP Work Phone: noMS External Department UnsolicitedStart: 07-22-2024 End: 27-69-0117Omemfrqtp Result EncounterMaximo Nguyen [employer] Work Phone: noms External Department UnsolicitedStart: 07-08-2024 End: 26-29-2169Hhounpp encounter procedureFrandy Beltrán DPM Work Phone: [facility] CI PODIATRYComment on above:Diabetes mellitus due to underlying condition with diabetic polyneuropathy, unspecified whether long term care administrator insulin use ([facility]) (Primary Dx); Onychomycosis; Toe pain, bilateralStart: 07-08-2024 End: 09-94-9534Uakxom flowsArtur Beltrán DPM Work Phone: [facility] CI PODIATRYStart: 07-08-2024 End: 05-24-3646Ufkfnx Curt Beltrán DPM Work Phone: [facility] CI PODIATRYStart: 07-08-2024 End: 31-67-5066fusendthbuEPKTKITV A BROWNNot AvailableStart: 07-07-2024 End: 27-70-6024Wdzksv flowsNicole Nguyen [employer] Work Phone: NOTC [place] STATE ROUTEStart: 07-07-2024 End: 56-42-9505Jdevbp Jil Nguyen [employer] Work Phone: NOWD [place] STATE ROUTEStart: 07-07-2024 End: 87-25-9938Qwjluv outpatient visit 25 minutesMaximo Nguyen [employer] Work Phone: NOPW [place] STATE ROUTEComment on above:Lumbar radiculopathy (Primary Dx); Essential tremor; DDD (degenerative disc disease), lumbar; Polyneuropathy; Gait instability; Seizure disorder (CMS/HCC); Polypharmacy; Degenerative disc disease at L5-S1 levelStart: 07-07-2024 End: 58-60-4064vzijgvglsnMUQMFT MORRISNot AvailableStart: 07-05-2024 End: 62-06-8378YrezivRjckqChon BAKER CI FMComment on above:Degenerative disc disease at L5-S1 levelStart: 07-02-2024 End: 52-16-3255SnujaoZfcovZach GAMEZ Work Phone: [facility] CI FMComment on above:Right lumbar radiculopathy Start: 06-29-2024 End: 38-96-6199HowhteUhpualqj Riedy MANOMS [place] STATE ROUTEComment on above: Degenerative disc disease at L5-S1 levelStart: 06-24-2024 End: 28-21-0483SdsiaiAouhiZach GAMEZ Work Phone: [facility] CI FMComment on above:Localization-related epilepsy (CMS/HCC)Start: 05-25-2024 End: 45-79-7718Kiilthceg Result EncounterGeneric External Data ProviderNOMS External Department UnsolicitedStart: 05-25-2024 End: 62-58-5754Glhuyvwav Result EncounterGeneric External Data ProviderNOMS External Department UnsolicitedStart: 03-10-2024 End: 56-43-5968lgvtqdkvscNRTGSKXAurora Medical Center[facility] Start: 03-10-2024 End: 15-78-2078Uqgzyk outpatient new 45 minutesMicjunaid Hightower DO Work Phone: [facility] General SurgeryComment on above: Rectal bleeding (Primary Dx); Other emphysema (CMS-HCC); Tobacco abuseStart: 02-20-2024 End: 88-59-3886Ydqlmfhmp Result EncounterGeneric External Data ProviderNOMS External Department UnsolicitedStart: 02-20-2024 End: 79-83-2163Vxngvbrrz Result EncounterGeneric External Data ProviderNOMS External Department UnsolicitedStart: 04-44-6201Mbhzs Neo Christianson PA Work Phone: [facility] CI FMStart: 11-24-2023 End: 38-28-9102Szhhdusfx Result EncounterGeneric External Data ProviderNOMS External Department UnsolicitedStart: 11-24-2023 End: 65-43-2539Nrcrklsps Result EncounterGeneric External Data ProviderNOMS External Department UnsolicitedStart: 02-06-2023 End: 64-40-5468jcbnecraecMO MITUL RICHMONDFacility:E1Tdyzu: 85-08-8466Wtdsclinuo ELLENSUAD MORRISFacility:[facility] HOSPITALtart: 06-08-2017 End: 54-92-8744EqmvbbnwtyDUIUWAN R KLEFRANCOCZFacility:[facility] Procedures DateProcedureProcedure DetailPerforming ClinicianStart: 26-03-4106LLH HEAD/BRAIN WO/W CONTRGeneric External Data ProviderStart: 81-17-7477SD LUMBAR SPINE WO CON Generic External Data ProviderStart: 97-71-9076OPF CREATININEGeneric External Data ProviderStart: 15-85-3493PEWQJLAMINE Goldberg PA Work Phone: Start: 93-38-6193PT LUMBAR SPINE WO Gary Nguyen NP Work Phone: Start: 74-75-4658Hkcqo elbow complete minimum 3 views Generic External Data ProviderStart: 75-38-6873BZPXIRXQL BLOOD PRESSUREGeneric External Data ProviderStart: 23-97-8044Byykx elbow complete minimum 3 views Generic External Data ProviderStart: 60-35-4454HzolloyaofhUfwve Hemmer PA Work Phone: Start: 84-95-5743JKTFCAJOGPM OF ESOPHAGUS USING OTHER CONTRASTROBERT QASIM Plan of Treatment DateCare ActivityDetailAuthorStart: 90-34-9744Xjoatnruu for malignant neoplasm of colonNOMS HealthcareStart: 09-06-2025 End: 09-27-2562Dleprdd encounter nwasvfvfd65/18/2025 2:00 PM EST Office [facility] [place] [facility] [address] [facility] [address] [place] [address] America Christianson PA [address] [facility] [address] [place] [address] N[facility]S [place] MedinceStart: 08-18-2025 End: 67-37-4611Ueyowly encounter eemmducsd77/30/2025 11:30 AM EDT Procedure Visit [facility] [address] [place] [address] Frandy Beltrán, DPM [address] [facility] [address] [place] [address] N[facility]S CI PODIATRYStart: 07-05-2025 End: 54-21-0657Donyosg encounter hrhmrrexs56/16/2025 11:30 AM EDT Office Visit YAHAIRA DURHAM [address] [place] [address] Alvino Torres DO [address] [place] [address] YAHAIRA BELLEVUEStart: 06-27-2025 End: 80-77-6466Ymqjlkj encounter qqsvuhmsv28/08/2025 2:00 PM EDT Office Visit [facility] [place] [facility] [address] [facility] [address] [place] [address] America Christianson PA [address] [place] [address] ArrivedNOMS [place] North MedinceComment on above:ArrivedStart: 67-01-1669XFAIP-19 Vaccine ( season)COVID-19 Vaccine ( season)NOMS HealthcareStart: 78-71-3477Uvdkzpqow vaccinationInfluenza Vaccine (#1)NOMS HealthcareStart: 06-15-2025 End: 50-18-3453Kfdfhgr encounter procedureNOMS CI FMComment on above:Arrived Start: 72-29-9688Xefxwsj referralPremier Health Work Phone: Start: 06-01-2025 End: 06-90-9666Nptzatp encounter wvuyxtywy97/13/2025 1:20 PM EDT Office Visit YAHAIRA DURHAM [address] [place] [phone] Gloria Beard NP [address] [place] [address] YAHAIRA AKINStart: 05-26-2025 End: 37-21-2864Kmsexld encounter procedureNOMS CI PODIATRYComment on above: Diabetes mellitus due to underlying condition with diabetic polyneuropathy, unspecified whether long term care administrator insulin use (HCC) (Primary Dx); Pain due to onychomycosis of toenails of both feetStart: 64-71-8929Yvswb screening for proteinDiabetes: Urine Protein ScreeningNOMS HealthcareStart: 48-91-1178Rwzhwnsr screeningDiabetes: Retinopathy ScreeningNOMS HealthcareStart: 03-17-2025 End: 79-88-7007Hziwjgn encounter nirjylvxe46/29/2025 11:40 AM EDT Procedure Visit [facility] [address] [facility] [address] [place] [address] Frandy Beltrán DPM [address] [facility] [address] [place] [address] NOMS CI PODIATRYStart: 03-15-2025 End: 20-69-0285Guxdvgk encounter procedureNOMS CI FMComment on above:Arrived Start: 61-84-1309Hzjbb BMI ScreeningAdult BMI ScreeningProMedica Bay [facility] Hospitalca [facility] Start: 69-32-8463Uackxcc ScreeningTobacco ScreeningOhioHealth Dublin Methodist Hospital SystemStart: 02-17-2025 End: 51-27-4408Sabalsc encounter veedkhcwj73/01/2025 3:00 PM EDT Procedure Visit [facility] [address] [place] [address] Frandy Beltrán, MELO [address] [facility] [address] [place] [address] NOMS CI PODIATRYStart: 02-16-2025 End: 34-28-6681Naurvqk encounter vmerybkyo75/30/2025 1:15 PM EDT Office Visit YAHAIRA JOLIET [address] [place] [phone] Alvino Torres DO [address] [place] [address] YAHAIRA BELLEVUEStart: 02-16-2025 End: 67-28-1570Thwzfqu encounter procedureANA BELLEVUEComment on above:Arrived Start: 02-10-2025 End: 29-77-0814Ofigo BlockNerve Block Procedures Routine Lumbar radiculopathy Expected: 02/10/2025 (Approximate), Expires: 02/10/2026[facility] Work Phone: comment on above:Expected: 02/10/2025 (Approximate), Expires: 02/10/2026Start: 02-10-2025 End: 88-11-6679Idaoahq encounter procedureANA BELLEVUEStart: 12-30-2024 End: 04-09-4913Tcbmwgx encounter gvuhedhyu58/13/2025 1:00 PM EDT Office Visit [facility] CI FM [address] [place] [address] NOMS CI FMStart: 12-14-2024 End: 53-79-6109Jhhcxin encounter esrrpdpnk75/25/2025 1:30 PM EST Office Visit [facility] FM [address] [place] [address] America Christianson PA [address] [place] [address] NOMS CI FMStart: 12-01-2024 End: 33-12-2310Cpvugbl encounter blxcgpfeq74/12/2025 1:00 PM EST Office Visit [facility] FM [address] [place] [address] America Christianson PA [address] [place] [address] NOMS CI FMStart: 10-50-9844Brnxkctbtx A1c measurement Diabetes: Hemoglobin J0HAKHW HealthcareStart: 10-26-2024 End: 06-83-0073Hjfztke encounter procedureNOKNOX COMMUNITY [facility]PITAL ROUTEComment on above:ArrivedStart: 09-28-2024 End: 14-18-1294Ctfqa BlockNerve Block Procedures Routine Lumbar radiculopathy Expected: 09/28/2024 (Approximate), Expires: 09/28/2025[facility] Work Phone: comment on above:Expected: 09/28/2024 (Approximate), Expires: 09/28/2025Start: 09-28-2024 End: 54-39-8504Uuznkdh encounter pckpuqbep14/10/2024 1:20 PM EST Office Visit [facility] [address] [place] [address] Maximo Nguyen NP [address] [place], [place] [address] [facility] ROUTEStart: 09-23-2024 End: 68-39-4264Ljhqzuo encounter ulturjsqc59/05/2024 2:00 PM EST Procedure Visit [facility] [address] [place] [address] Frandy Beltrán, MELO [address] [address] NOMS CI PODIATRYStart: 09-02-2024 End: 77-00-4448Pvlayxi encounter eslozqoxi04/14/2024 2:40 PM EST Office Visit [facility] [address] [place] [address] Maximo Nguyen, LOUISE [address] [place], [place] [address] N[facility] ROUTEStart: 08-31-2024 End: 16-41-0301Wsyszmm encounter ckvwbcamz78/12/2024 1:00 PM EST Office Visit [facility] CI FM [address] [place] [address] America Christianson PA [address] [place], [place] [address] NOMS CI FMStart: 13-09-8147Yfqvfzhvag A1c measurement Diabetes: Hemoglobin W2WIKCO HealthcareStart: 10-20-2024Medicare Annual Wellness (AWV)Medicare Annual Wellness (AWV)NOMS HealthcareStart: 08-03-2024 End: 15-13-8185Knpczsx encounter procedureNODE HERMIN[facility] ROUTEComment on above:ArrivedStart: 07-08-2024 End: 03-88-1966Lxidayj encounter procedureNOMS CI PODIATRYComment on above: Diabetes mellitus due to underlying condition with diabetic polyneuropathy, unspecified whether fpc insulin use ([facility]) (Primary Dx); Onychomycosis; Toe pain, bilateralStart: 07-07-2024 End: 71-76-6422Wkwbe BlockNerve Block Procedures Routine Lumbar radiculopathy Expected: 07/07/2024 (Approximate), Expires: 07/07/2025NOMS HealthcareComment on above:Expected: 07/07/2024 (Approximate), Expires: 07/07/2025Start: 07-07-2024 End: 13-38-0074Tfevnad encounter procedureNOMS [place] STATE ROUTEComment on above:ArrivedStart: 60-97-1127Uwipiqkgl vaccinationNODE HealthcareStart: 05-05-2024 End: 38-58-6662Oaguukh encounter chiewwhyp85/17/2024 7:30 AM EDT Procedure visit [facility] [address] [place] [address] Marizol Hightower DO [address] [place] [address] [facility] SurgeryStart: 04-26-2024 End: 54-01-3981Oydzewv encounter ozsixcnzl37/08/2024 3:00 PM EDT [facility] [address] [place], [id number] Ayleen Beard, F[employer]IE[employer] [address] [place], [place] [address] [facility] SurgeryStart: 11-24-2023 End: 49-04-0627Maakrqs encounter kidadntpx93/05/2024 2:00 PM EST Office Visit N[facility]S CI [address] [facility] [address] [place] [address] America Christianson PA [address] [facility] [address] [place] [address] NOMS CI FMStart: 85-40-2965Todfjdbcmv A1c measurement Diabetes: Hemoglobin Q3ODXKW HealthcareStart: 49-75-5370Kkcni screening for proteinDiabetes: Urine Protein ScreeningUINTAH BASIN MEDICAL [facility]ENTER HealthcareStart: 97-30-4321Wcqo Risk ScreeningFall Risk ScreeningProHarrison Community Hospital SystemStart: 1975 DTaP,Tdap and Td Vaccines (1 - Tdap)DTaP,Tdap and Td Vaccines (1 - Tdap) [facility] SystemStart: 63-58-2093Tkuqaaojto ScreeningDepression Screening [facility] SystemStart: 96-31-4852XTjP/Tdap/Td Vaccines (1 - Tdap) DTaP/Tdap/Td Vaccines (1 - Tdap)NOMS HealthcareStart: 1956Medicare Annual Wellness VisitMedicare Annual Wellness VisitOur Community Hospitaltart: 98-59-9177Tuygxgzvg for malignant neoplasm of colonNOMS HealthcareStart: 38-92-3562Zhzzeje CounselingTobacco CounselingOhioHealth Dublin [facility] Hospital System End: 38-32-4408PznldiyhdsmTwulxzhzblg GI Routine Rectal bleeding 1 Occurrences starting 03/10/2024 until 03/10/2025[facility] Work Phone: Comment on above:1 Occurrences starting 03/10/2024 until 03/10/2025T Lumbar spine [facility] Lum[facility] WO [facility] HospitalElectromyography [facility] CenterMR Lumbar spine WO contrastMR lumbar spine wo contrast Imaging Routine Lumbar radiculopathy DDD (degenerative disc disease), lumbar Gait instability Ordered: 07/07/2024NODE [employer] Work Phone: comment on above:Ordered: 07/07/2024MR Lumbar spine WO [facility] HospitalMR Unspecified body [facility] HospitalPatient referralPremier Health Work Phone: XR Lumbar spine ViewsDelray Medical Center Immunizations Immunization DateImmunizationNotesCare TqagihnfTdlzgkpw06-62-8350Rsxibobtj, High-dose Seasonal, Quadrivalent, Preservative FreeAmerica GAMEZ Work Phone: noRanken Jordan Pediatric Specialty HospitalBofxbyfckp46-21-6289jxdivkbqn virus vaccine, unspecified formulationMitul Richmond MD Work Phone: Next GamesRanken Jordan Pediatric Specialty HospitalOkjfntuarq08-84-5848Currjykqqnrz Conjugate PCV 20 America GAMEZ Work Phone: noCr[employer] Ixmtfnxhdk00-28-1498JED, recombinant, protein subunit RSVpreF, adjuvant reconstitu, 120mcg/0.5mL, PF (Arexvy)America GAMEZ Work Phone: NORanken Jordan Pediatric Specialty HospitalNgtyoabgmd61-21-0758Qqxvku Ziegler Cap SARS-CoV-2 VaccinationAmerica GAMEZ Work Phone: [phone] [place], [place] [address]Sbyalgvmhy83-96-5977Snyszvjze, High-dose Seasonal, Quadrivalent, Preservative FreeKaren Hemmer PA Work Phone: [phone] [place], [place] [address]Qleekxfzov49-52-1980sdlszntuy virus vaccine, unspecified formulationMichael Panfiloillis DO Work Phone: [facility] Health [id number], Seasonal, Quadrivalent, AdjuvantedKaren Hemmer PA Work Phone: [phone] [place], [place] [address]Hzkoxigqxf10-81-6251agmbdgztw, injectable, quadrivalent, preservative freeKaren Hemmer PA Work Phone: [phone] [place], [place] [address]Bwjutwyseu32-03-6233owbtcwbhqqpw conjugate vaccine, 13 valentKaren Hemmer PA Work Phone: [phone] [place], [place] [address]Rofmdqwchm65-28-0668tyxwss vaccine recombinant [place] Hemmer PA Work Phone: [phone] [place], [place] [address]Ahvfkzvgty80-75-2866jghhjarag, high dose seasonal, preservative-freeKaren Hemmer PA Work Phone: [phone] [place], [place] [address]Scdcoztviv37-74-6603suwrgubly, high dose seasonal, preservative-freeKaren Hemmer PA Work Phone: [phone] [place], [place] [address]Egdlteqtsp84-07-0504igdgde vaccine recombinant America Hemmer PA Work Phone: [facility] CenterUtxgetnbnk03-39-3184Khtapvqsk, injectable, Madin Rula Canine Kidney, preservative free, quadrivalentKaren Hemmer PA Work Phone: [phone] [place], [place] [address]Vxbzifjqgv94-66-3257vmjjhtoe influenza, intradermal, preservative freeKaren Hemmer PA Work Phone: [phone] [place], [place] [address]Oxxktgijib40-08-1903wgqikxhw influenza, intradermal, preservative freeKaren Hemmer PA Work Phone: [phone] [place], [place] [address]Sqiclneqje30-95-8405evkmqzvya, seasonal, injectable, preservative freeKaren Hemmer PA Work Phone: [facility] CenterCenkqrsrvk09-46-0418kfrwsvsnv, seasonal, injectable, preservative freeKaren Hemmer PA Work Phone: [facility] CenterTwuwebyrmr49-21-2457yrjlmcat influenza, intradermal, preservative freeAmerica Christianson PA Work Phone: [facility] HospitalFpdkxmjvia77-48-3746dqxevo vaccine, liveAmerica Shanemer PA Work Phone: [facility] HospitalRokxuxugge17-50-0289ffkoshnpkuzv conjugate vaccine, 13 valentAmerica Shanemer PA Work Phone: [facility] CenterXpzmuajjcx36-48-0708mrzhfebdypgd polysaccharide vaccine, 23 valRhoda Shanemer PA Work Phone: [facility] Payers DatePayer CategoryPayerPolicy ID2022Medicaid [id number] 2021Medicare [id number] [id number] [id number] 1959 [id number] [id number] [id number] [id number] 2.840.1.596255.3.57[id number] 2.840.1.267914.3.57[id number] 2.16840.1.694240.3.57[id number] 2.16840.1.790952.3.57[id number] 2.16.840.1.506570.3.57[id number] 2.16.840.1.014968.3.57[id number] 2.16840.1.546812.3.57[id number] 2.16840.1.938811.3.57[id number] 2.16840.1.833302.3.57[id number] 2.840.1.662890.3.57[id number] 2.840.1.339466.3.57[id number] 2.840.1.141708.3.57[id number] 2.840.1.927576.3.57[id number] 2.840.1.664192.3.57[id number] 2.0.1.903547.3.57[id number] 2.840.1.738686.3.57[id number] 2.0.1.921992.3.[id number] Social History DateTypeDetailFacilityStart: 08-08-2023 End: 20-59-3565Wiyvdxz smoking status NHISSmokes tobacco dailyNOMS Healthcare History of tobacco useCigarette SmokerNOMS HealthcareStart: 08-08-2023 End: 07-68-5770Mznzmiivft smoked current (pack per day) - Oyffilad3MBWA HealthcareStart: 08-08-2023 End: 25-29-0337Buqlexd use and exposureSmokeless tobacco non-userNODE Healthcare Start: 11-11-2023 End: 73-97-4721Xcrkoai intakeLifetime non-drinker (finding)[facility] HealthcareStart: 11-11-2023 End: 23-46-2070Xhyyzeq use panelNODE HealthcareStart: 38-77-2455Atb Assigned At BirthNot on fileUINTAH BASIN MED[facility] HealthcareStart: 96-65-0305Ywmmiyw CommentSmoking 7 cigars a day as of 05/25/2024 and vapes. H/o 1 PPDUINTAH BASIN MEDICAL CENTER HealthcareStart: 03-10-2024 Alcoholic beverage intakeEx-drinker (finding)[facility] SystemStart: 70-82-6142MmbiylumqHqrwtlcJezGtsvqb Health SystemSexMale (finding)[facility] Hospitaltart: 37-18-6527Bdm Assigned At BirthMalKettering Health Behavioral Medical Centertart: 30-42-4654Kvsncpt CommentSmoking 3 cigarettes a day as of 11/24/2023. H/o 1 [facility] Medical Equipment Procedure CodeEquipment CodeEquipment Original TextEquipment IdentifierDates Phacoemulsification of cataract with intraocular lens implantationLENS ACRYSOF IOL [id number]: 59-89-0882Bwhqzifmhobwtyuwyvq of cataract with intraocular lens implantationLENS ACRYSOF IOL [id number]: 08-01-7523Pczgvpstdbbijqhymkf of cataract with intraocular lens implantationLENS ACRYSOF IOL [id number]: 60-70-4845Oqmmxolsoqrstjxjxgg of cataract with intraocular lens implantationLENS ACRYSOF IOL [id number]: 07-02-20181 each by Other route in the morning and 1 each before bedtime.[id number]: 01-70-5327Hbt as instructed twice a day [id number]: 07-24-2023 End: 07-23-2024 Functional Status BvoqEcbvbuhlvaCgsvrkNwsolxty29-05-3394Hodxnry Health Questionnaire 2 item (PHQ- 2) [Reported][facility] CenterNtggqqjtqv80-76-2029Vuwaqce Health Questionnaire 2 item (PHQ- 2) [Reported][facility] CenterRnebgqelfg70-38-1653Hiuzwmv Health Questionnaire 2 item (PHQ- 2) [Reported][facility] CenterHvzhlestch36-37-5172Brxzjsc Health Questionnaire 2 item (PHQ- 2) [Reported][facility] Clinical Notes 03-10-2024 to 08-15-2025 Note Date & FehxKqwpTismbhzu63-72-8105 Telephone encounter Note* Telephone Encounter - FRANCO Reyna - 08/15/2025 1:06 PM EDT OARRS reviewed, Rx sent into patient's pharmacy. [facility] CenterHkbkbovxda24-48-4592 Miscellaneous Notes* Telephone Encounter - FRANCO Reyna - 08/15/2025 1:06 PM EDT OARRS reviewed, Rx sent into patient's pharmacy. * Telephone Encounter - Ursula Cruz - 08/15/2025 11:27 AM EDT PHENobarbital (Luminal) 32.4 MG tablet [place]dm [place] documented in this encounterMissouri Baptist Medical CenterGmcupbgejp70-96-1589 Telephone encounter Note* Telephone Encounter - Ursula Cruz - 08/15/2025 11:27 AM EDT PHENobarbital (Luminal) 32.4 MG tablet [place]dm [place] [facility] CenterHteeugczkd59-14-5789 Telephone encounter Note* Telephone Encounter - Ursula Cruz - 08/01/2025 10:41 AM EDT HYDROcodone-acetaminophen (Goodell) 10-325 MG tablet [place]dm [place] [facility] CenterXgzwakaalk65-53-4529 Miscellaneous Notes* Telephone Encounter - Ursula Cruz - 08/01/2025 10:41 AM EDT HYDROcodone-acetaminophen (Goodell) 10-325 MG tablet Ddm in [place] documented in this [facility]10-01-2025 Telephone encounter Note* Telephone Encounter - FRANCO Reyna - 07/20/2025 2:16 PM EDT [facility] [place] [facility] CenterKzquntcyjs05-76-3935 Miscellaneous Notes* Telephone Encounter - FRANCO Reyna - 07/20/2025 2:16 PM EDT Resent to [facility] [place] * Telephone Encounter - Ursula Cruz - 07/18/2025 3:23 PM EDT PHENobarbital (Luminal) 32.4 MG tablet [place]dm in [place] documented in this encounterMissouri Baptist Medical CenterUupqodohuu52-03-4730 Telephone encounter Note* Telephone Encounter - FRANCO Reyna - 07/18/2025 9:34 PM EDT OARRS reviewed, Rx sent into patient's pharmacy. [facility] CenterDpqgetvizr73-92-0858 Miscellaneous Notes* Telephone Encounter - FRANCO Reyna - 07/18/2025 9:34 PM EDT OARRS reviewed, Rx sent into patient's pharmacy. documented in this encounterMissouri Baptist Medical CenterYkpaajmiei77-31-7929 Telephone encounter Note* Telephone Encounter - Ursula Cruz - 07/18/2025 3:23 PM EDT PHENobarbital (Luminal) 32.4 MG tablet [place] in [place] [facility] Dgyfyvvwfu38-32-2576 History of Present illness Narrative* FRANCO Reyna - 06/27/2025 2:00 PM EDT Images from the original note were not included. HPI Fall Additional comments: Pt was standing on the scale for his weight and fell backwards off the scale and hit his back and his right knee is hurting. He did not fall on his knee. Last edited by FRANCO Reyna on 06/27/2025 2:02 PM. Subjective Patient ID: Dutch Monique SR is a 69 y.o. male who presents for possible ringworm. Dutch is present today for evaluation of possible ringworm. Admits his possible ringworm is on thetop of his right thigh. It is red and is circular. His aid feels it is ringworm. He states at one point there were a few small black spots and he pushed on them. States when he falls he just falls back, no warning. Can just be drying his hands after using the restroom and can fall backwards. Is waiting to get a new Rolator through [employer]. Over the past 2 weeks, how often [...] Take 20 mg by mouth Daily HYDROcodone-acetaminophen (Goodell) 10-325 MG tablet Take 2 tablets by [...] tablet 11 PHENobarbital (Luminal) 32.4 MG tablet Take 1 tablet (32.4 mg) by mouth in the morning and 1 tablet(32.4 mg) in the evening and 1 tablet (32.4 mg) before bedtime. 90 tablet 2 phenytoin ER (Dilantin) 100 MG capsule TAKE [...] MOUTH EVERY 8 HOURS NEEDED FOR MUSCLE BEBKNY15 tablet 10 venlafaxine XR (Effexor XR) 150 MG 24 hr capsule TAKE 1 CAPSULE BY MOUTH ONCE DAILY 90 capsule 11 venlafaxine XR (Effexor XR) 75 MG 24 hr capsule Take 1 capsule (75 mg) by mouth Daily 100 capsule 3 No current facility-administered medications on file [...] Surgical History: Procedure Laterality Date BACK SURGERY 1980 GALL BLADDER INTRAOCULAR LENS INSERTION Right 06/2018 KNEE SURGERY Right repair LUMBAR TRANSFORAMINAL EPIDURAL STEROID INJECTION Bilateral 12/26/2020 L4 LUMBAR TRANSFORAMINAL EPIDURAL STEROID INJECTION 12/17/2022 L4 NOSE SURGERY NASAL SURGERY ORIF HUMERUS FRACTURE Left 06/09/2023 [place] LAP,CHOLECYSTECTOMY 2008 Disease:Chronic cholecystitis SHOULDER SURGERY Left 06/2023 TOTAL KNEE ARTHROPLASTY 1981 Visit Vitals BP 110/76 Pulse 74 Resp 16 Ht 5' 9 Wt 150 lb 12.8 oz SpO2 95% BMI 22.27 kg/m Smoking Status Every Day BSA 1.83 m Review of Systems Constitutional: Negative for chills, fatigue and fever. Respiratory: Negative for cough, shortness of breath and wheezing. Cardiovascular: Negative for chest pain, palpitations and leg swelling. Gastrointestinal: Negative for abdominal pain, constipation, diarrhea, nausea and vomiting. Musculoskeletal: Positive for arthralgias and back pain. Skin: Positive for rash. Objective Physical Exam Constitutional: General: [...] present. No wheezing, rhonchi or rales. Musculoskeletal: Cervical back: No tenderness or bony tenderness. Thoracic back: No tenderness or bony tenderness. Lumbar back: No tenderness or bony tenderness. Back: Right knee: No swelling, erythema or ecchymosis. Normal range of motion. Comments: Small linear superficial abrasion noted, no ecchymosis Skin: General: Skin is warm and dry. Findings: Lesion present. Comments: Quarter sized area of scabbing with minimal surrounding erythema, no induration, no increased warmth to touch. Neurological: General: No focal deficit present. Mental Status: He is alert and oriented to person, place, and time. Gait: Gait abnormal (Unsteady). Comments: Using wheelchair Psychiatric: Mood and Affect: Mood normal. Behavior: Behavior normal. Assessment/Plan Diagnoses and all orders for this visit: Ingrown hair - mupirocin (Bactroban) 2 % cream; Apply topically in the morning and in the evening and before bedtime. Do all this for 10 days Start Mupirocin to right leg lesion daily for 10 days, or until lesion resolved. Does not appear kim tinea. Looks like an ingrown hair that pt was able to expel. Fall, initial encounter Pt's initial discomfort following the fall in the office was almost completely resolved prior to him leaving the office today. No obvious need for x-rays at this time. Gait instability Encouraged pt to follow up on getting his new Rolator. He is not steady on his feet. Pt was taken out of his visit today in a wheelchair. Does have a cane with him. Follow up for Appointment As Scheduled. documented in this encounterMissouri Baptist Medical CenterVjcnrulufw50-70-7376 History of Present illness Narrative* FRANCO Reyna - 06/15/2025 2:00 PM EDT Images from the original note were not included. HPI Med Refill Additional comments: [facility] and needs hydrocodone. Medication Question Additional comments: [...] MOUTH EVERY 8 HOURS NEEDED FOR MUSCLE FVSDTS93 tablet 10 venlafaxine XR (Effexor XR) 150 MG 24 hr capsule TAKE 1 CAPSULE BY MOUTH ONCE DAILY 90 capsule 11 venlafaxine XR (Effexor XR) 75 MG 24 hr capsule Take 1 capsule (75 mg) by mouth Daily 100 capsule 3 [DISCONTINUED] HYDROcodone-acetaminophen (Goodell) 10-325 MG tablet Take 2 tablets by [...] NASAL SURGERY ORIF HUMERUS FRACTURE Left 06/09/2023 [place] LAP,CHOLECYSTECTOMY 2008 Disease:Chronic cholecystitis SHOULDER SURGERY Left [...] disc disease at L5-S1 level - HYDROcodone-acetaminophen (Goodell) 10-325 MG tablet; Take 2 tablets by [...] at this time. Refill sent to [facility] [place] for the patient. Tobacco dependence Discussed smoking [...] for Medication Follow Up. documented in this encounterMissouri Baptist Medical CenterBcomlnnxvk70-15-9037 Telephone encounter Note* Telephone Encounter - FRANCO Reyna - 06/14/2025 2:31 PM EDT OARRS reviewed, Rx sent into patient's pharmacy. [facility] CenterTlipbtlama35-56-0220 Miscellaneous Notes* Telephone Encounter - FRANCO Reyna - 06/14/2025 2:31 PM EDT OARRS reviewed, Rx sent into patient's pharmacy. * Telephone Encounter - JAS MIGUEL - 06/14/2025 1:43 PM EDT OV 03/15/25 RF 12/13/24 * Telephone Encounter - Catherine Gomes - 06/14/2025 1:24 PM EDT Dutch called requesting a refill on hisPHENobarbital (Luminal) [facility] [place] documented in this encounterMissouri Baptist Medical CenterKmirgdpyim25-05-7196 Telephone encounter Note* Telephone Encounter - JAS MIGUEL - 06/14/2025 1:43 PM EDT OV 03/15/25 RF 12/13/24 [facility] CenterEtvvophvad84-25-8129 Telephone encounter Note* Telephone Encounter - Catherine Gomes - 06/14/2025 1:24 PM EDT Dutch called requesting a refill on hisPHENobarbital (Luminal) 32.[address] [facility] [place] CenterTccxafwspa59-51-4358 Evaluation note* Diagnosis Onset Date Resolution Status Admit Date Essential tremor chronicAugust 2024 1:03pmGait instabilitychronicAugust 2024 1:03pm Migraine without aura and without status migrainosus, not intractablechronic June 01, 2025 1:03pmPolyneuropathychronicAugust 2024 1:03pm PolypharmacychronicAugust 2024 1:03pmRadiculopathy, lumbar regionchronic June 01, 2025 1:03pmSeizure disorderchronicAugust 2024 1:03pm [facility] Work Phone: 1([phone]) 874-277408-13-2025 Evaluation note* Diagnosis Onset Date Resolution Status Admit Date Essential tremor chronicAugust 2024 1:03pmGait instabilitychronicAugust 2024 1:03pm Migraine without aura and without status migrainosus, not intractablechronic June 01, 2025 1:03pmPolyneuropathychronicAugust 2024 1:03pm PolypharmacychronicAugust 2024 1:03pmRadiculopathy, lumbar regionchronic June 01, 2025 1:03pmSeizure disorderchronicAugust 2024 1:03pm Lumbosacral radiculopathyacuteOctober 2024 10:53amPolyneuropathychronic August 25, 2025 1:30pm [facility] Work Phone: 1(291) 403-278008-07-2025 History of Present illness Narrative* Frandy Beltrán, MELO - 05/26/2025 11:20 AM EDT Patient: Dutch Monique SR : 1955 PCP: [...] (HCC) Tremor Type 2 diabetes mellitus (HCC) Medications: Current Outpatient Medications: acetaminophen (Tylenol Extra Strength) 500 MG tablet, Take 500 mg by mouth every 6 (six) hours if needed for mild pain, Disp: , Rfl: albuterol HFA 90 mcg/act inhaler, Inhale 2 puffs every 4 (four) hours if needed for wheezing, Disp:18 g, Rfl: 11 ARIPiprazole (Abilify) 2 MG tablet, TAKE 1 TABLET BY MOUTH DAILY, Disp: 90 tablet, Rfl: 11 Ianlsks-Eokaqrlmdvf-Trlslywpkg (Breztri Aerosphere) 160-9-4.8 MCG/ACT aerosol, Inhale 2 [...] by mouth Daily, Disp: , Rfl: HYDROcodone-acetaminophen (Goodell) 10-325 MG tablet, Take 2 tablets by mouth every 6 (six) hours if needed for severe pain for up to 15 days, Disp: 120 tablet, Rfl: 0 lisinopril 20 MG tablet, TAKE 1 TABLET (20MG) BY MOUTH AT NOON BEFORE A MEAL, Disp: 30 tablet, Rfl:10 meloxicam (Mobic) 7.5 MG tablet, Take 7.5 [...] CAPSULE BY MOUTH EVERY MORNING, Disp: 100 capsule,Rfl: 3 tiZANidine (Zanaflex) 4 MG tablet, TAKE [...] file Food Insecurity: Unknown (03/10/2024) [facility] from [facility] Hunger Screening Within the past 12 months [...] TBI 0.81 with normal reading per Dr. Narayan report ASSESSMENT 1. Diabetes mellitus due to underlying condition with diabetic polyneuropathy, unspecified whether long term care administrator insulin use (HCC) 2. Pain due to [...] to both feet. Patient had a diabetic neurologicalexam today to both their feet and discussed proper shoe gear. Frandy Beltrán DPM documented in this encounterMissouri Baptist Medical CenterSxezrmtamo52-26-3560 Telephone encounter Note* Telephone Encounter - FRANCO Reyna - 05/12/2025 7:37 PM EDT OARRS reviewed, Rx sent into patient's pharmacy. [facility] CenterGmryvfinmu95-16-7868 Miscellaneous Notes* Telephone Encounter - FRANCO Reyna - 05/12/2025 7:37 PM EDT OARRS reviewed, Rx sent into patient's pharmacy. * Telephone Encounter - Ursula Cruz - 05/10/2025 2:49 PM EDT HYDROcodone-acetaminophen [place]dm [place] documented in this encounterMissouri Baptist Medical CenterUaeatpphod45-70-2355 Telephone encounter Note* Telephone Encounter - Ursula Cruz - 05/10/2025 2:49 PM EDT HYDROcodone-acetaminophen [place]dm [place] [facility] CenterFklywypysx70-16-8687 History of Present illness Narrative* Frandy Beltrán DPM - 03/17/2025 11:40 AM EDT Patient: Dutch Monique SR : 1955 PCP: [...] Headache History of degenerative disc disease Hypertension ([facility]/HCC) Left supracondylar humerus fracture 06/02/2023 Lesion of ulnar nerve Lumbar radiculopathy Lumbar spondylosis Malaise and fatigue Migraine Neck injury 05/2017 following a fall on railing Pain in limb Presbyopia Pseudophakia of right eye Radiculopathy, lumbosacral region Seizure disorder ([facility]) Tremor Type 2 diabetes mellitus Medications: Current Outpatient Medications: acetaminophen (Tylenol Extra Strength) 500 MG tablet, Take 500 mg by mouth every 6 (six) hours if needed for mild pain, Disp: , Rfl: albuterol HFA 90 mcg/act inhaler, Inhale 2 puffs every 4 (four) hours if needed for wheezing, Disp:18 g, Rfl: 11 ARIPiprazole (Abilify) 2 MG tablet, TAKE 1 TABLET BY MOUTH DAILY, Disp: 90 tablet, Rfl: 11 Uuhuhrq-Cvaxywjkrhu-Lmsamjhtyk (Breztri Aerosphere) 160-9-4.8 MCG/ACT aerosol, Inhale 2 [...] by mouth Daily, Disp: , Rfl: HYDROcodone-acetaminophen (Goodell) 10-325 MG tablet, Take 2 tablets by mouth every 6 (six) hours if needed for severe pain for up to 15 days, Disp: 120 tablet, Rfl: 0 lisinopril 20 MG tablet, TAKE 1 TABLET (20MG) BY MOUTH AT NOON BEFORE A MEAL, Disp: 30 tablet, Rfl:10 meloxicam (Mobic) 7.5 MG tablet, Take 7.5 mg by mouth Daily as needed for mild pain or moderate pain QTY 14 tabs, Disp: , Rfl: nicotine polacrilex (Commit) 4 MG lozenge, Dissolve 1 lozenge (4 mg) in the mouth every 8 (eight) hours if needed for smoking cessation. (Patient not taking: Reported on 12/13/2024), Disp: 90 lozenge,Rfl: 2 nicotine polacrilex (Nicorette) 4 MG gum, [...] file Food Insecurity: Unknown (03/10/2024) [facility] Hunger Scre[facility] Within the past 12 months [...] TBI 0.81 with normal reading per Dr. Narayan report ASSESSMENT 1. Diabetes mellitus due to underlying condition with diabetic polyneuropathy, unspecified whether long term care administrator insulin use ([facility]) 2. PVD (peripheral vascular disease) ([facility]/HCC) 3. Pain due to onychomycosis of toenails [...] to both feet. Patient had a diabetic neurologicalexam today to both their feet and discussed proper shoe gear. Frandy Beltrán DPM documented in this encounterMissouri Baptist Medical CenterYtgelegpfm70-18-0415 History of Present illness Narrative* FRANCO Reyna - 03/15/2025 1:00 PM EDT Images from the original note [...] TABLET BY MOUTH DAILY 90 tablet 11 Gtatvec-Dlkhvfhvklz-Hatizrjxhk (Breztri Aerosphere) 160-9-4.8 MCG/ACT aerosol Inhale 2 puffs in themorning and 2 puffs before bedtime. 10.7 g [...] Take 20 mg by mouth Daily HYDROcodone-acetaminophen (Goodell) 10-325 MG tablet Take 2 tablets by [...] MOUTH THREE TIMES DAILY (IN THE MORNING, INTHE EVENING, and BEFORE bedtime) 90 tablet 5 [...] MOUTH EVERY 8 HOURS NEEDED FOR MUSCLE NYFFFE98 tablet 10 venlafaxine XR (Effexor XR) 150 [...] each (4 mg) every 8 (eight) hours ifneeded for smoking cessation. (Patient not taking: Reported [...] NASAL SURGERY ORIF HUMERUS FRACTURE Left 06/09/2023 [place] LAP,CHOLECYSTECTOMY 2008 Disease:Chronic cholecystitis SHOULDER SURGERY Left [...] whole, or in part, for the following medicalcondition, which is the primary reason for home health care: Frequent falls, Gait instability. My clinical findings support this patient's homebound status (i.e. absences from home require considerable and taxing effort.) The clinical findings that support the need for home care and homebound status are because patient needs the assistance of another person to leave place of residence, impaired mobility, and increasedfall risk. It is medially necessary for patient [...] for Medication Follow Up. documented in this encounterMissouri Baptist Medical CenterVrttlgxvxw03-67-8895 Telephone encounter Note* Telephone Encounter - JAS MIGUEL - 03/01/2025 4:34 PM EDT [facility], was sent to his mail order pharmacy. [facility] CenterEfrtjvifpg62-56-2968 Miscellaneous Notes* Telephone Encounter - JAS MIGUEL - 03/01/2025 4:34 PM EDT [facility], was sent to his mail order pharmacy. * Telephone Encounter - Ursula Cruz - 03/01/2025 3:48 PM EDT HYDROcodone-acetaminophen (Goodell) 10-325 MG tablet [facility] [place] documented in this [facility]05-13-2025 Telephone encounter Note* Telephone Encounter - Ursula Cruz - 03/01/2025 3:48 PM EDT HYDROcodone-acetaminophen (Goodell) 10-325 MG tablet [facility] [place] [facility] CenterEhlvrsiiws92-50-4624 Telephone encounter Note* Telephone Encounter - Ursula Cruz - 02/28/2025 11:10 AM EDT HYDROcodone-acetaminophen (Goodell) 10-325 MG tablet needs resent to [facility] [place] they do not have the script [place] [address]Sumvlsbopt27-52-0934 Miscellaneous Notes* Telephone Encounter - Ursula Cruz - 02/28/2025 11:10 AM EDT HYDROcodone-acetaminophen (Goodell) 10-325 MG tablet needs resent to [facility] [place] they do not have the script documented in this encounterMissouri Baptist Medical CenterOfitcqoizp25-59-0472 Telephone encounter Note* Telephone Encounter - FRANCO Reyna - 02/23/2025 5:30 PM EDT OARRS reviewed, Rx sent into patient's pharmacy. [place] [address]Jwtrflpgje71-42-7610 Miscellaneous Notes* Telephone Encounter - FRANCO Reyna - 02/23/2025 5:30 PM EDT OARRS reviewed, Rx sent into patient's pharmacy. * Telephone Encounter - Ursula Cruz - 02/23/2025 2:27 PM EDT Hydrocodone 5-325 [facility]dm in [place] documented in this encounterMissouri Baptist Medical CenterAzcfhvpipy17-16-3945 Telephone encounter Note* Telephone Encounter - Ursula Cruz - 02/23/2025 2:27 PM EDT Hydrocodone 5-325 [place]dm [place] [facility] CenterBnntgkmixh48-93-0763 History of Present illness Narrative* Alvino Torres DO - 02/16/2025 11:30 AM EDTAssociated Order(s): Nerve Block Pre-Procedure Diagnose(s): Lumbar radiculopathy; [...] good spread of the dye along the corresp onding nerve root and through the foramen into the axillary recess of the epidural space without any vascular uptake. Then the 0.5ml of 0.25% Bupivacaine mixed with 0.5ml of Dexamethasone 10mg/ml wasinjected without adverse effect. The next appropriate site [...] and showed a good spread of the dyealong the corresponding nerve root and through the foramen into the axillary recess of the epiduralspace without any vascular uptake. Then the 0.5ml of 0.25% Bupivacaine mixed with 0.5ml of Dexamethasone 10mg/ml was injected without adverse effect. The procedure was completed without complications and was tolerated well. The patient was monitoredafter the procedure. The patient (or responsible alliance party) was given post-procedure and discharge instructions to follow at home. The patient was discharged in stable condition. A follow-up appointment was made. The patient was instructed to avoid activities that would normally worsen the pain. Pre-procedure pain score: 6 /10 Rock Drill Operator: Bill Gale, RT(R) kVp: 103 Time (sec): 20 mA: 3.0 Patient ID: Dutch Monique SR is a 69 y.o. male. Nerve Block Date/Time: 02/16/2025 12:16 PM Performed by: Alvino Torres DO Authorized by: FRANCO Foy Consent: Consent obtained: Written Consent given by: Patient [place] protocol: Procedure explained and questions answered to patient or proxy's satisfaction: yes Patient identity confirmed: Verbally with patient Location: Body area: Trunk Trunk nerve: Lumbar Procedure details: Guidance: fluoroscopy Steroid injected: Dexamethasone Post-procedure details: Procedure completion: Tolerated documented in this encounterMissouri Baptist Medical [id number] History of Present illness Narrative* FRANCO Foy - 02/10/2025 1:20 PM EDT Images from the original note [...] right eye Radiculopathy, lumbosacral region Seizure disorder (CMS/[facility]) Tremor Type 2 diabetes mellitus Past Surgical History: Procedure Laterality Date BACK SURGERY 1981 GALL BLADDER INTRAOCULAR LENS INSERTION Right 06/2018 KNEE SURGERY Right repair LUMBAR TRANSFORAMINAL EPIDURAL STEROID INJECTION Bilateral 12/26/2020 L4 LUMBAR TRANSFORAMINAL EPIDURAL STEROID INJECTION 12/17/2022 L4 NOSE SURGERY NASAL SURGERY ORIF HUMERUS FRACTURE Left 06/09/2023 MO LAP,CHOLECYSTECTOMY 2008 Disease:Chronic cholecystitis SHOULDER SURGERY Left [...] deltoid, biceps, triceps, wrist extensors, wrist flexor, willow analyst strength 5/5. LUE Strength deltoid, biceps, triceps, wrist extensors, wrist flexor, willow analyst strength 5/5 (he does have difficulty with [...] CT of the head/brain without contrast at [facility] on 09/12/23: no acute hemorrhage. Bifrontal atrophy noted. Moderate present previously. MRI of the lumbar spine without contrast at [place] on 10/01/19: Degenerative changes resulting inbilateral L4/5 and L5/1 foraminal stenosis. EMG of the bilateral lower extremities at [facility] on 11/12/19: Polyneuropathywhich is axon loss in type and severe [...] by another physician), neuropathic pain medication, and OTCmedications without success. Bilateral L4 epidural injections have provided benefit (> 50% pain reduction lasting > 3 months). These improve the patient's quality of life and ability to performADLs. We did update imaging due to recurrent falls and MRI does demonstrate some progression of DDDwith moderate canal stenosis and severe neuroforaminal narrowing at L4/5 and severe neuroforaminal narrowing with mild stenosis at L5/S1 among lesser degrees of changes at other levels. Epidurals continue to provide benefit. PLAN: - Patient has previously been offered neurosurgical opinion but the patient is adamant that he doesnot wish to pursue surgery. - Continue Lyrica [...] was advised to pursue emergent evaluation in theED should he experience any such signs or [...] increases due to multiple medications with MANAGER PLACEMENT depressive effects) - I would avoid propranolol in the setting of respiratory condition - Already on lyrica Polyneuropathy The patient has polyneuropathy as identified on BLE EMG from 10/2019 (severe, axonal loss). He has paresthesias in the bilateral feet and diminished distal BLE sensation on clinical examination. History of DM which is likely causative. I suspect that sensory changes are also affecting the patient'sgait and instability. PLAN: - Plan as above - Recommended tight glucose control with PCP and daily skin checks of the feet to monitor for wounds Seizure disorder ([facility]) The patient reports a history of seizure [...] potential reduction in medication but the patient isadamant that he does not want to risk the possibility of a breakthrough event. Polypharmacy Ongoing concerns for polypharmacy. We did have a lengthy conversation in regards to risks versus benefits of long term care administrator use of his medications. The patient understands that the combination of pain medication, neuropathic medication, and seizure medication has substantial MANAGER PLACEMENT depressive effects and could be life threatening. The patient is adamant about the need to continue his current regimen without change and accepts these risks. Follow up after epidural injection or sooner if symptoms worsen, fail to improve, or should a new neurological concern arise. Pt has been fully educated on their diagnosis, treatment options, follow up plan, and return instructions FRANCO Foy-Tari HPI documented in this [facility]04-10-2025 Telephone encounter Note* Telephone Encounter - FRANCO Reyna - 01/27/2025 4:21 PM EDT OARRS reviewed, Rx sent into patient's pharmacy. [place] [id number] Miscellaneous Notes* Telephone Encounter - FRANCO Reyna - 01/27/2025 4:21 PM EDT OARRS reviewed, Rx sent into patient's pharmacy. * Telephone Encounter - Ursula Cruz - 01/27/2025 1:11 PM EDT HYDROcodone-acetaminophen (Goodell) 10-325 MG tablet [facility] [place] documented in this encounterMissouri Baptist Medical [id number] Telephone encounter Note* Telephone Encounter - Ursula Cruz - 01/27/2025 1:11 PM EDT HYDROcodone-acetaminophen (Goodell) 10-325 MG tablet [facility] [place] [id number] Telephone encounter Note* Telephone Encounter - Frandy Lizarraga MA - 01/26/2025 3:38 PM EDT OARRS Reviewed due 01/28/2025 [place] [id number] Miscellaneous Notes* Telephone Encounter - Frandy Lizarraga MA - 01/26/2025 3:38 PM EDT OARRS Reviewed due 01/28/2025 * Telephone Encounter - BRANDYN Hollis - 01/24/2025 4:26 PM EDT Patient left message requesting refill of Lyrica 150mg TID sent to [facility] in [place]. (Continue Lyrica 150 mg PO TID ... Per Maximo Nguyen on 09/28/24) documented in this encounterMissouri Baptist Medical CenterGdookclidu67-71-7928 Telephone encounter Note* Telephone Encounter - BRANDYN Hollis - 01/24/2025 4:26 PM EDT Patient left message requesting refill of Lyrica 150mg TID sent to [facility] in [place]. (Continue Lyrica 150 mg PO TID ... Per Maximo Nguyen on 09/28/24) [facility] CenterGcvdhblxgz09-49-9333 Telephone encounter Note* Telephone Encounter - Ursula Cruz - 01/24/2025 3:51 PM EDT [place]one [facility] [place] [facility] CenterUnrljamocf21-95-3877 Miscellaneous Notes* Telephone Encounter - Ursula Cruz - 01/24/2025 3:51 PM EDT Hydrocodone [place] documented in this encounterMissouri Baptist Medical CenterDqsgpnznul09-56-7328 History of Present illness Narrative* FRANCO Reyna - 01/13/2025 2:30 PM EDT Images from the original note were not included. Subjective Patient ID: Dutch Monique SR is a 69 y.o. male who presents for [facility] ER follow up. Flowsheet Row Patient Outreach from 01/07/2025 in [facility] with Venita Rosas RN Hospital Information ED, Hospital or Prison Facility Discharge? ED Patient has been contacted within 2 days of being seen in the ED Yes Diagnosis Contusion of Knee, left Discharge Date 01/06/25 Discharged To: Home Setting Discharge Hospital [facility] Engagement Call Start Time 1456 Admission Date [...] refer pt to Ortho. Call End Time 1511 01/13/2025 His leg is feeling better and he [...] mg) by mouth Daily 100 tablet 3 Fptbyxy-Fjjvxljsdhb-Caqcqgopcm (Breztri Aerosphere) 160-9-4.8 MCG/ACT aerosol Inhale 2 puffs in themorning and 2 puffs before bedtime. 10.7 g [...] 20 mg by mouth Daily [] HYDROcodone-acetaminophen (Goodell) 10-325 MG tablet Take 2 tablets by [...] mild pain or moderate painQTY 14 tabs naloxone (Narcan) 4 mg/0.1 mL [...] MOUTH THREE TIMES DAILY (IN THE MORNING, INTHE EVENING, and BEFORE bedtime) 90 tablet 5 [...] MOUTH EVERY 8 HOURS NEEDED FOR MUSCLE CLMRHF55 tablet 10 venlafaxine XR (Effexor XR) 150 [...] NASAL SURGERY ORIF HUMERUS FRACTURE Left 06/09/2023 [place] LAP,CHOLECYSTECTOMY 2008 Disease:Chronic cholecystitis SHOULDER SURGERY Left [...] improve over the next week. Primary hypertension ([facility]) Patient's blood pressure is currently well controlled. Continue with current medications and I willcontinue to monitor. Goal BP remains less than [...] of opioid therapy including potential for MANAGER PLACEMENT s/e, GI s/e, respiratory s/e, dermatologic s/e, and urinary s/e, in additionto potential for allergic reaction, tolerance of the medication, dependence on the medication, potential for withdrawal with abrupt cessation, and potential for addiction. Also reviewed patient responsibilities regarding opioid therapy, and reasons why medication may need to be discontinued. See Chronic Opioid Therapy Agreement document for complete details. Follow up for Appointment As Scheduled. documented in this [facility]03-05-2025 Telephone encounter Note* Telephone Encounter - FRANCO Reyna - 12/22/2024 3:05 PM EST OARRS reviewed, Rx sent into patient's pharmacy. [facility] [id number] Miscellaneous Notes* Telephone Encounter - FRANCO Reyna - 12/22/2024 3:05 PM EST OARRS reviewed, Rx sent into patient's pharmacy. * Telephone Encounter - Ursula Cruz - 12/22/2024 1:52 PM EST [facility] [place] * Telephone Encounter - Bernadine Azul - 12/20/2024 10:39 AM EST Home health nurse states that he has been failing a lot. (Twice Friday), pt stated to the nurse that he has been losing his balance a lot lately. Pt went down on his butt both times. No bruising was seen by the nurse and he was in no pain from it documented in this encounterMissouri Baptist Medical CenterCtmuvrseto87-82-5726 Telephone encounter Note* Telephone Encounter - Ursula Cruz - 12/22/2024 1:52 PM EST [facility] [place] [facility] [id number] Telephone encounter Note* Telephone Encounter - Maximo Nguyen NP - 12/20/2024 4:07 PM EST OARRs reviewed. Rx sent. [facility] [id number] Miscellaneous Notes* Telephone Encounter - Maximo Nguyen NP - 12/20/2024 4:07 PM EST OARRs reviewed. Rx sent. * Telephone Encounter - Frandy Lizarraga MA - 12/20/2024 3:21 PM EST The pt calls in and requests refill of Lyrica. Oarrs reviewed DUE NOW documented in this encounterMissouri Baptist Medical CenterVmrhdxafqw20-08-1556 Telephone encounter Note* Telephone Encounter - Frandy Lizarraga MA - 12/20/2024 3:21 PM EST The pt calls in and requests refill of Lyrica. Oarrs reviewed [facility] NOW [facility] [id number] Telephone encounter Note* Telephone Encounter - Bernadine Azul - 12/20/2024 10:39 AM EST Home health nurse states that he has been failing a lot. (Twice Friday), pt stated to the nurse that he has been losing his balance a lot lately. Pt went down on his butt both times. No bruising was seen by the nurse and he was in no pain from it [facility] CenterRfkbsntwbl61-64-7313 History of Present illness Narrative* FRANCO Reyna - 12/14/2024 1:30 PM EST Images from the original note were not [...] 20 mg by mouth Daily [] HYDROcodone-acetaminophen (Goodell) 10-325 MG tablet Take 2 tablets by [...] MOUTH THREE TIMES DAILY (IN THE MORNING, INTHE EVENING, and BEFORE bedtime) 90 tablet 5 [...] MOUTH EVERY 8 HOURS NEEDED FOR MUSCLE [id number] tablet 10 venlafaxine XR (Effexor XR) 150 [...] mg/0.15 mL IJ solution auto-injector injection Inject 0.15mL (0.15 mg) into the shoulder, thigh, or [...] NASAL SURGERY ORIF HUMERUS FRACTURE Left 06/09/2023 [place] LAP,CHOLECYSTECTOMY 2009 Disease:Chronic cholecystitis SHOULDER SURGERY Left [...] for this patient. Panlobular emphysema (CMS/HCC) - Ofarbsg-Mchiawfqhin-Hjyalnjqav (DearLocal) 160-9-4.8 MCG/ACT aerosol; Inhale 2 puffs in the morning and 2 puffs before bedtime. Advised pt that having to use his rescue inhaler so frequently means that his breathing is not wellcontrolled. He is at high risk for complications, [...] controlled. Continue with current medications and I willcontinue to monitor. Goal BP remains less than 130/80. Simple chronic bronchitis (CMS/HCC) - Ienvazp-Aisyhemzxae-Pquguuuqri (Breztri Aerosphere) 160-9-4.8 MCG/ACT aerosol; Inhale 2 puffs in the morning and 2 puffs before bedtime. See above. Tobacco dependence Discussed smoking cessation with the patient. Encouraged patient to cut back and soon quit smoking.Health risks of smoking, and benefits of quitting reviewed with the patient. Advised pt that smoking cessation will not undo the damage already done to his lungs after many years of smoking, but it may help to slow further progression of his lung disease. Follow up in about 3 months (around 03/13/2025) for Medication Follow Up. documented in this encounterNORanken Jordan Pediatric Specialty HospitalFfveiataav18-41-6715 Telephone encounter Note* Telephone Encounter - Mitul Richmond MD - 12/13/2024 12:57 PM EST Rx was sent. [facility] [id number] Miscellaneous Notes* Telephone Encounter - Mitul Richmond MD - 12/13/2024 12:57 PM EST Rx was sent. * Telephone Encounter - Bernadine Azul - 12/13/2024 10:08 AM EST PHENobarbital (Luminal) 32.4 MG tablet [facility] [place] documented in this [facility]02-24-2025 Telephone encounter Note* Telephone Encounter - Bernadine Azul - 12/13/2024 10:08 AM EST PHENobarbital (Luminal) 32.4 MG tablet to [facility] [place] [facility] [id number] Telephone encounter Note* Telephone Encounter - Bernadine Azul - 11/25/2024 11:24 AM EST HYDROcodone-acetaminophen (Goodell) 10-325 MG tablet to [facility] [place] [facility] [id number] Miscellaneous Notes* Telephone Encounter - Bernadine Azul - 11/25/2024 11:24 AM EST HYDROcodone-acetaminophen (Goodell) 10-325 MG tablet to [facility] [place] documented in this encounterMissouri Baptist Medical CenterPceeauiovw56-98-5011 Telephone encounter Note* Telephone Encounter - FRANCO Reyna - 10/27/2024 2:29 PM EST Resent. [facility] [id number] Miscellaneous Notes* Telephone Encounter - FRANCO Reyna - 10/27/2024 2:29 PM EST Resent. * Telephone Encounter - Dariela Bolton LPN - 10/27/2024 2:20 PM EST Pt states was sent to [facility] they are currently out of stock pt is requesting rx be sent to [facility] [place] instead documented in this [facility]01-08-2025 Telephone encounter Note* Telephone Encounter - Dariela Bolton LPN - 10/27/2024 2:20 PM EST Pt states was sent to his mail order ([facility]) they are currently out of stock pt is requesting rx be sent to [facility] [place] instead [facility] [id number] Telephone encounter Note* Telephone Encounter - FRANCO Reyna - 10/27/2024 9:06 AM EST Rx sent. [facility] CenterJgfqsyzudy02-81-0784 Miscellaneous Notes* Telephone Encounter - FRANCO Reyna - 10/27/2024 9:06 AM EST Rx sent. * Telephone Encounter - Bernadine Azul - 10/26/2024 3:06 PM EST PHENobarbital (Luminal) 32.4 MG tablet to [facility] [place] documented in this [facility]01-07-2025 Telephone encounter Note* Telephone Encounter - Bernadine Azul - 10/26/2024 3:06 PM EST PHENobarbital (Luminal) 32.4 MG tablet to [facility] [place] [facility] [id number] History of Present illness Narrative* Alvino Torres DO - 10/26/2024 1:15 PM EST Images from the original note were not [...] good spread of the dye along the corresp onding nerve root and through the foramen into the axillary recess of the epidural space without any vascular uptake. Then the 0.5ml of 0.25% Bupivacaine mixed with 0.5ml of Dexamethasone 10mg/ml wasinjected without adverse effect. The next appropriate site [...] and showed a good spread of the dyealong the corresponding nerve root and through the foramen into the axillary recess of the epiduralspace without any vascular uptake. Then the 0.5ml of 0.25% Bupivacaine mixed with 0.5ml of Dexamethasone 10mg/ml was injected without adverse effect. The procedure was completed without complications and was tolerated well. The patient was monitoredafter the procedure. The patient (or responsible alliance party) was given post-procedure and discharge instructions to follow at home. The patient was discharged in stable condition. A follow-up appointment was made. The patient was instructed to avoid activities that would normally worsen the pain. Pre-procedure pain score: 5 /10 Rock Drill Operator: RT Telma(R) kVp: 103 Time (sec): 21 mA: 3.0 documented in this encounterMissouri Baptist Medical CenterUmckdvbpok76-76-2839 Telephone encounter Note* Telephone Encounter - FRANCO Reyna - 10/26/2024 11:32 AM EST OARRS reviewed, Rx sent into patient's pharmacy. [facility] [id number] Miscellaneous Notes* Telephone Encounter - FRANCO Reyna - 10/26/2024 11:32 AM EST OARRS reviewed, Rx sent into patient's pharmacy. * Telephone Encounter - Ursula Cruz - 10/25/2024 11:00 AM EST Hydrocodone 10 [address] [facility] [place] documented in this [facility]01-06-2025 Telephone encounter Note* Telephone Encounter - Ursula Cruz - 10/25/2024 11:00 AM EST Hydrocodone 10 [address] [facility] [place] [facility] [id number] Telephone encounter Note* Telephone Encounter - Bernadine Azul - 10/19/2024 11:25 AM EST HYDROcodone-acetaminophen (Goodell) 10-325 MG tablet [facility] [place] [facility] CenterEwshljtgqi00-55-5712 Miscellaneous Notes* Telephone Encounter - Bernadine Azul - 10/19/2024 11:25 AM EST HYDROcodone-acetaminophen (Goodell) 10-325 MG tablet to [facility] [place] documented in this [facility]12-10-2024 Telephone encounter Note* Telephone Encounter - FRANCO Reyna - 09/28/2024 4:52 PM EST [facility]ill sent. [facility] CenterWyekcjiwli44-23-6766 Miscellaneous Notes* Telephone Encounter - FRANCO Reyna - 09/28/2024 4:52 PM EST Refill sent. * Telephone Encounter - Ursula Cruz - 09/28/2024 11:48 AM EST PHENobarbital (Luminal) 32.4 MG tablet [facility]dm in [place] documented in this encounterMissouri Baptist Medical CenterPimucyvxmc55-54-2531 History of Present illness Narrative* Maximo Nguyen NP - 09/28/2024 1:20 PM EST Images from the original note were not included. Chief Complaint Patient presents with Back Pain Tremors Seizures Gait Problem Polyneuropathy Subjective Dutch Monique SR, 69 y.o., male The patient presents today for follow up. Admits lumbar MRI since last seen. He received lumbar EPIinjections 08-03-24 and admits >50% reduction in his pain level. He states he is still getting relief from this today. The patient still admits some mild bilateral lower back pain which is constant. Lyrica is also helpful. The patient admits to continued bilateral lower extremity weakness which has not worsened. His balance has been a little better, admits one near- fall. He continues with PT twice weekly. He [...] NASAL SURGERY ORIF HUMERUS FRACTURE Left 06/09/2023 [place] LAP,CHOLECYSTECTOMY 2008 Disease:Chronic cholecystitis SHOULDER SURGERY Left [...] deltoid, biceps, triceps, wrist extensors, wrist flexor, willow analyst strength 5/5. LUE Strength deltoid, biceps, triceps, wrist extensors, wrist flexor, willow analyst strength 5/5 (he does have difficulty with [...] knee reflex 1+. Oneill's Sign negative. Coordination: Zsjwwo-lf-jkvt testing is normal Rapid alternating movements are [...] CT of the head/brain without contrast at [facility] on 09/12/23: no acute hemorrhage. Bifrontal atrophy noted. Moderate present previously. MRI of the lumbar spine without contrast at [place] on 10/01/19: Degenerative changes resulting inbilateral L4/5 and L5/1 foraminal stenosis. EMG of the bilateral lower extremities at [facility] on 11/12/19: Polyneuropathywhich is axon loss in type and severe [...] by another physician), neuropathic pain medication, and OTCmedications without success. Bilateral L4 epidural injections have provided benefit (> 50% pain reduction lasting > 3 months). These improve the patient's quality of life and ability to performADLs. We did update imaging due to recurrent falls and MRI does demonstrate some progression of DDDwith moderate canal stenosis and severe neuroforaminal narrowing [...] was advised to pursue emergent evaluation in theED should he experience any such signs or [...] increases due to multiple medications with MANAGER PLACEMENT depressive effects) - I would avoid propranolol in the setting of respiratory condition - Already on lyrica Polyneuropathy The patient has polyneuropathy as identified on BLE EMG from 10/2019 (severe, axonal loss). He has paresthesias in the bilateral feet and diminished distal BLE sensation on clinical examination. History of DM which is likely causative. I suspect that sensory changes are also affecting the patient'sgait and instability. PLAN: - Plan as above - Recommended tight glucose control and daily skin checks of the feet. Seizure disorder (CMS/[facility]) The patient reports a history of seizure [...] potential reduction in medication but the patient isadamant that he does not want to risk the possibility of a breakthrough event. Polypharmacy Ongoing concerns for polypharmacy. We did have a lengthy conversation in regards to risks versus benefits of fpc use of his medications. The patient understands that the combination of pain medication, neuropathic medication, and seizure medication has substantial MANAGER PLACEMENT depressive effects and could be life threatening. [...] and return instructions HPI documented in this encounterMissouri Baptist Medical CenterNgtepkzori18-10-4865 Telephone encounter Note* Telephone Encounter - Ursula Cruz - 09/28/2024 11:48 AM EST PHENobarbital (Luminal) 32.4 MG tablet [place]dm [place] [facility] CenterGoisocduzx83-63-4928 Telephone encounter Note* Telephone Encounter - FRANCO Reyna - 09/22/2024 12:59 PM EST OARRS reviewed, Rx sent into patient's pharmacy. [facility] CenterIjhhrmjhkk73-20-9146 Miscellaneous Notes* Telephone Encounter - FRANCO Reyna - 09/22/2024 12:59 PM EST OARRS reviewed, Rx sent into patient's pharmacy. documented in this encounterMissouri Baptist Medical CenterRmdjqwucwq41-84-6786 Telephone encounter Note* Telephone Encounter - Frandy Lizarraga MA - 09/20/2024 1:13 PM EST The patient has been without his medication since 09/13/2024. Notes that his last rx was sent for qty of 78 and then we had to send him an rx for 12 to get him to his refill date. But no new rx was sent. Pt request to be sent to [facility]. Oarrs reviewed due now [facility] CenterZbvkyarlqs47-16-5227 Miscellaneous Notes* Telephone Encounter - Frandy Lizarraga MA - 09/20/2024 1:13 PM EST The patient has been without his medication since 09/13/2024. Notes that his last rx was sent for qty of 78 and then we had to send him an rx for 12 to get him to his refill date. But no new rx was sent. Pt request to be sent to [facility]. Oarrs reviewed due now documented [facility] this [facility]11-12-[facility] History of Present illness Narrative* FRANCO Reyna - 08/31/2024 1:00 PM EST Images from the original note were not [...] drainage and some post nasal drainage would liketo be checked to see if he has [...] mg by mouth in the morning. HYDROcodone-acetaminophen (Goodell) 10-325 MG tablet Take 2 tablets by [...] MOUTH THREE TIMES DAILY (IN THE MORNING, INTHE EVENING, and BEFORE bedtime) 90 tablet 0 [...] mouth Daily 100 capsule 3 [DISCONTINUED] HYDROcodone-acetaminophen (Goodell) 10-325 MG tablet Take 2 tablets by [...] NASAL SURGERY ORIF HUMERUS FRACTURE Left 06/09/2023 [place] LAP,CHOLECYSTECTOMY 2009 Disease:Chronic cholecystitis SHOULDER SURGERY Left 06/2023 TOTAL KNEE ARTHROPLASTY 1981 Visit Vitals BP 134/72 Pulse 62 Ht 5' 9 Wt 153 lb SpO2 99% BMI 22.59 kg/m Smoking Status Every Day BSA 1.84 m Review of Systems Constitutional: Negative for chills, fatigue and fever. HENT: Positive for postnasal drip and rhinorrhea. Negative for congestion, ear pain, sinus pressureand sore throat. Eyes: Negative for pain, discharge [...] All needed testing was ordered. Will continue withyearly Medicare Wellness exams. 2. ACP (advance care [...] well. - Influenza, high-dose seasonal, quadrivalent, PF (FSM618) (Fluzone High Dose Quad North 0.7mL dose) 4. Diabetic peripheral neuropathy associated with type 2 diabetes mellitus ([facility]) Hemoglobin A1c on 05/25/2024 was 4.9. Will continue to monitor with routine labs. 5. Essential tremor The patient is seeing a medical insurance biller for this condition, treatment is deferred to that specialist. Correspondence from that specialist and any available testing were reviewed during today's visit. 6. Localization-related epilepsy ([facility]/HCC) The patient is seeing a medical insurance biller for this condition, treatment is deferred to that specialist. Correspondence from that specialist and any available testing were reviewed during today's visit. 7. Lumbar radiculopathy The patient is seeing a medical insurance biller for this condition, treatment is deferred to that specialist. Correspondence from that specialist and any available testing were reviewed during today's visit. 8. Lumbosacral neuritis The patient is seeing a medical insurance biller for this condition, treatment is deferred to that specialist. Correspondence from that specialist and any available testing were reviewed during today's visit. 9. Lumbosacral radiculopathy The patient is seeing a medical insurance biller for this condition, treatment is deferred to that specialist. Correspondence from that specialist and any available testing were reviewed during today's visit. 10. Polyneuropathy The patient is seeing a medical insurance biller for this condition, treatment is deferred to that specialist. Correspondence from that specialist and any available testing were reviewed during today's visit. 11. Right lumbar radiculopathy The patient is seeing a medical insurance biller for this condition, treatment is deferred to that specialist. Correspondence from that specialist and any available testing were reviewed during today's visit. 12. Seizure disorder ([facility]) The patient is seeing a medical insurance biller for this condition, treatment is deferred to that specialist. Correspondence from that specialist and any available testing were reviewed during today's visit. 13. Panlobular emphysema ([facility]) This is a chronic medical condition that is stable since last assessment. No changes in treatment are suggested at this time. 14. Hiatal hernia This is a chronic medical condition that is stable since last assessment. No changes in treatment are suggested at this time. 15. Simple chronic bronchitis ([facility]) This is a chronic medical condition that is stable since last assessment. No changes in treatment are suggested at this time. 16. Hemorrhoids, external This is a chronic medical condition that is stable since last assessment. No changes in treatment are suggested at this time. 17. Primary hypertension ([facility]/HCC) Patient's blood pressure is currently well controlled. Continue with current medications and I willcontinue to monitor. Goal BP remains less than [...] pain The patient is seeing a medical insurance biller for this condition, treatment is deferred to that specialist. Correspondence from that specialist and any available testing were reviewed during today's visit. 22. Degenerative disc disease at L5-S1 level The patient is seeing a medical insurance biller for this condition, treatment is deferred to that specialist. Correspondence from that specialist and any available testing were reviewed during today's visit. 23. Hand eczema This is a chronic medical condition that is stable since last assessment. No changes in treatment are suggested at this time. 24. Lumbar spondylosis The patient is seeing a medical insurance biller for this condition, treatment is deferred to [...] gait The patient is seeing a medical insurance biller for this condition, treatment is deferred to that specialist. Correspondence from that specialist and any available testing were reviewed during today's visit. 30. Balance disorder The patient is seeing a medical insurance biller for this condition, treatment is deferred to that specialist. Correspondence from that specialist and any available testing were reviewed during today's visit. 31. Depressive disorder (CMS/HCC) This is a chronic medical condition that is stable since last assessment. No changes in treatment are suggested at this time. 32. Falls frequently The patient is seeing a medical insurance biller for this condition, treatment is deferred to that specialist. Correspondence from that specialist and any available testing were reviewed during today's visit. 33. Gait instability The patient is seeing a medical insurance biller for this condition, treatment is deferred to [...] patient to cut back and soon quit smoking.Health risks of smoking, and benefits of quitting reviewed with the patient. 38. Tremor The patient is seeing a medical insurance biller for this condition, treatment is deferred to that specialist. Correspondence from that specialist and any available testing were reviewed during today's visit. 39. Visual impairment This is a chronic medical condition that is stable since last assessment. No changes in treatment are suggested at this time. Follow up in about 3 months (around 12/01/2024) for Medication Follow Up. NORAH MagañaC documented in this encounterMissouri Baptist Medical [id number] Telephone encounter Note* Telephone Encounter - Maximo Nguyen NP - 08/23/2024 10:11 AM EST This was filled on 08/20/24 [facility] [id number] Miscellaneous Notes* Telephone Encounter - Maximo Nguyen NP - 08/23/2024 10:11 AM EST This was filled on 08/20/24 documented in this encounterMissouri Baptist Medical [id number] Telephone encounter Note* Telephone Encounter - Maximo Nguyen NP - 08/16/2024 11:59 AM EDT OARRs reviewed. Rx sent. [facility] [id number] Miscellaneous Notes* Telephone Encounter - Maximo Nguyen NP - 08/16/2024 11:59 AM EDT OARRs reviewed. Rx sent. * Telephone Encounter - Kristopher Braga MA - 08/16/2024 11:03 AM EDT Oarrs reviewed 9.30 for pregabalin 150 mg, needs sent to [facility] documented in this encounterMissouri Baptist Medical [id number] Telephone encounter Note* Telephone Encounter - Kristopher Braga MA - 08/16/2024 11:03 AM EDT Oarrs reviewed 9.30 for pregabalin 150 mg, needs sent to [facility] [id number] History of Present illness Narrative* BRANDYN Hollis - 08/03/2024 12:45 PM EDT Images from the original note [...] good spread of the dye along the corresp onding nerve root and through the foramen into the axillary recess of the epidural space without any vascular uptake. Then the 0.5ml of 0.25% Bupivacaine mixed with 0.5ml of Dexamethasone 10mg/ml wasinjected without adverse effect. The next appropriate site [...] and showed a good spread of the dyealong the corresponding nerve root and through the foramen into the axillary recess of the epiduralspace without any vascular uptake. Then the 0.5ml of 0.25% Bupivacaine mixed with 0.5ml of Dexamethasone 10mg/ml was injected without adverse effect. The procedure was completed without complications and was tolerated well. The patient was monitoredafter the procedure. The patient (or responsible alliance party) was given post-procedure and discharge instructions to follow at home. The patient was discharged in stable condition. A follow-up appointment was made. The patient was instructed to avoid activities that would normally worsen the pain. Pre-procedure pain score: 6 /10 Rock Drill Operator: Bill Landry, RT(R) kVp: 103 Time (sec): 21 mA: 3.0 documented in this [facility]10-09-2024 Telephone encounter Note* Telephone Encounter - FRANCO Reyna - 07/28/2024 2:46 PM EDT OARRS reviewed, Rx sent into patient's pharmacy. Resent to DM [facility] [id number] Miscellaneous Notes* Telephone Encounter - FRANCO Reyna - 07/28/2024 2:46 PM EDT OARRS reviewed, Rx sent into patient's pharmacy. Resent to DM documented in this [facility]10-07-2024 Miscellaneous Notes* Telephone Encounter - FRANCO Reyna - 07/26/2024 2:31 PM EDT Meds sent documented in this encounterMissouri Baptist Medical [id number] Telephone encounter Note* Telephone Encounter - FRANCO Reyna - 07/26/2024 2:31 PM EDT Meds sent [facility] [id number] History of Present illness Narrative* Frandy Beltrán, MELO - 07/08/2024 2:30 PM EDT Patient: Dutch Monique Sr. : 1955 PCP: [...] (CMS/HCC) Tremor Type 2 diabetes mellitus (CMS/HCC) Medications: Current Outpatient Medications: PHENobarbital (Luminal) 32.4 [...] 4 (four) hours if needed for wheezing, Disp:18 g, Rfl: 10 Alcohol Swabs (Alcohol Prep) [...] and 1 each before bedtime., Disp: 200 each,Rfl: 3 furosemide (Lasix) 20 MG tablet, Take 20 mg by mouth in the morning., Disp: , Rfl: glucose blood (FREESTYLE LITE) test strip, Use as instructed twice a day, Disp: 200 each, Rfl: 3 HYDROcodone-acetaminophen (Goodell) 10-325 MG tablet, Take 2 tablets by [...] 2-3 minutes if needed, alternating nostrils, until medicalassistance becomes available., Disp: 2 each, Rfl: 0 [...] by mouth in the morning., Disp: 100 tablet,Rfl: 3 tamsulosin (Flomax) 0.4 MG 24 hr capsule, TAKE 1 CAPSULE BY MOUTH EVERY MORNING, Disp: 30 capsule, Rfl: 10 tiZANidine (Zanaflex) 4 MG tablet, Take 2 tablets (8 mg) by mouth every 8 (eight) hours if needed for muscle spasms TAKE 2 TABLETS BY MOUTH EVERY 8 HOURS NEEDED FOR MUSCLE SPASMS, Disp: 60 tablet,Rfl: 2 venlafaxine XR (Effexor XR) 150 MG [...] file Food Insecurity: Unknown (03/10/2024) [facility] Within the past 12 months [...] TBI 0.81 with normal reading per Dr. Narayan report ASSESSMENT 1. Diabetes mellitus due to underlying condition with diabetic polyneuropathy, unspecified whether long term care administrator insulin use ([facility]) 2. Onychomycosis 3. Toe pain, bilateral PLAN Patient to continue with normal shoe gear Discussed proper foot care with patient today. Debride nails in length and thickness digits 1 through 10 Patient educated today on proper diabetic foot care including monitoring feet daily for any signs of infection openings in the skin or irregularities to both feet. Patient had a diabetic neurologicalexam today to both their feet and discussed proper shoe gear. Frandy Beltrán DPM documented in this encounterMissouri Baptist Medical [id number] History of Present illness Narrative* Maximo Nguyen NP - 07/07/2024 1:20 PM EDT Images from the original note [...] The patient still admits some mild bilateral lowerback pain which is constant. The patient also [...] of right eye Chronic cholecystitis 2009 Convulsions ([facility]) Disturbance of skin sensation Enthesopathy of hip [...] NASAL SURGERY ORIF HUMERUS FRACTURE Left 06/09/2023 [place] LAP,CHOLECYSTECTOMY 2008 Disease:Chronic cholecystitis SHOULDER SURGERY Left [...] deltoid, biceps, triceps, wrist extensors, wrist flexor, willow analyst strength 5/5. LUE Strength deltoid, biceps, triceps, wrist extensors, wrist flexor, willow analyst strength 5/5 (he does have difficulty with [...] knee reflex 1+. Oneill's Sign negative. Coordination: Jlxxes-hy-tbko testing is normal Rapid alternating movements are normal Gait: Wheelchair, gait not assessed. Does use a cane at home. Review and summary of old records: CT of the head/brain without contrast at [facility] on 09/12/23: no acute hemorrhage. Bifrontal atrophy noted. Moderate present previously. MRI of the lumbar spine without contrast at [place] on 10/01/19: Degenerative changes resulting inbilateral L4/5 and L5/1 foraminal stenosis. EMG of the bilateral lower extremities at [facility] on 11/12/19: Polyneuropathywhich is axon loss in type and severe [...] by another physician), neuropathic pain medication, and OTCmedications without success. Bilateral L4 epidural injections have provided benefit (> 50% pain reduction lasting > 3 months). These improve the patient's quality of life and ability to performADLs. He remains active at home though I [...] increases due to multiple medications with MANAGER PLACEMENT depressive effects) - I would avoid propranolol in the setting of respiratory condition - Already on lyrica Polyneuropathy The patient has polyneuropathy as identified on BLE EMG from 10/2019 (severe, axonal loss). He has paresthesias in the bilateral feet and diminished distal BLE sensation on clinical examination. History of DM which is likely causative. I suspect that sensory changes are also affecting the patient'sgait and instability. PLAN: - Plan as above [...] in regards to risks versus benefits of long term care administrator use of his medications. The patient understands that the combination of pain medication, neuropathic medication, and seizure medication has substantial MANAGER PLACEMENT depressive effects and could be life threatening. [...] plan, and return instructions documented in this [facility]09-16-2024 Telephone encounter Note* Telephone Encounter - FRANCO Reyna - 07/05/2024 8:28 AM EDT Tizanidine sent. [place] [id number] Miscellaneous Notes* Telephone Encounter - FRANCO Reyna - 07/05/2024 8:28 AM EDT Tizanidine sent. documented in this [facility]09-10-2024 Telephone encounter Note* Telephone Encounter - Maximo Nguyen NP - 06/29/2024 3:57 PM EDT OARRs reviewed. Rx sent [place] [id number] Miscellaneous Notes* Telephone Encounter - Maximo Nguyen NP - 06/29/2024 3:57 PM EDT OARRs reviewed. Rx sent documented in this encounterMissouri Baptist Medical [id number] Telephone encounter Note* Telephone Encounter - FRANCO Reyna - 06/24/2024 12:25 PM EDT OARRS reviewed, Rx sent into patient's pharmacy. [facility] [id number] Miscellaneous Notes* Telephone Encounter - FRANCO Reyna - 06/24/2024 12:25 PM EDT OARRS reviewed, Rx sent into patient's pharmacy. documented in this encounterMissouri Baptist Medical CenterVlwoyxkbot01-21-0435 History of Present illness Narrative* Marizol Hightower, - 03/10/2024 1:15 PM EDT Images from the original note were not included. [facility] [place] [id number] CONSULT NOTE CHIEF COMPLAINT Chief Complaint Patient presents with GI Bleeding GI bleed, rectal prolapse, [facility] ER 02/29/24 Dutch Monique . is a 68 y.o. male who presents with complaints of rectal bleeding and prolapse for which he went to the [facility] by squad on February 29, 2000. [...] blood work reviewed by me from the [facility] from February 29, 2024. MEDICATION Current [...] 2 tablets by mouth every 6 (six) hoursas needed., Disp: , Rfl: pantoprazole (PROTONIX) 40 [...] total) by mouth in the morning., Disp: ,Rfl: tiZANidine (ZANAFLEX) 4 mg tablet, Take 1 [...] was asked to Valsalva. Rectal digital exam revealssphincter tone to be normal prostate slightly enlarged [...] polypectomy. I discussed the risks, benefits, alternatives tothe above which may include perforation or bleeding or risks of anesthesia. They understood all theabove and wished to proceed. Evaluation included: Preparing to see the patient (e.g., review of tests) Obtaining and/or reviewing separately obtained history Performing a medically appropriate examination and/or evaluation Counseling and educating the patient/family/caregiver Referring and communicating with other health care management specialist Rectal bleeding [K62.5] Marizol Hightower DO This note was created with the assistance of a speech recognition program. While intending to generate a timely document that accurately reflects the content of the visit, no guarantee can be provided that every grammatical or spelling mistake has been or will be identified or corrected. Thank you for your understanding. documented in this encounterOhioHealth Nelsonville Health Center05-22-2024 Instructions* Patient Instructions* Marizol Hightower DO - 03/10/2024 1:15 PM EDT Are You Ready To Kick The Habit? Free Tobacco Cessation Resources [facility] Services [facility] provide all employees with free tobacco cessation services that include: Counseling to understand nicotine addiction Education about medications that can help you successfully quit Assistance with developing a plan to quit Call to set up an individual appointment or find out when group classes will be held: [facility]: [phone] [facility]: [phone] [facility]: [phone] [facility]: [phone] Quit Smoking Action Plan and Resources [facility] offers an eight-week, online smoking cessation plan to all [facility] employees, regardless of whether [employer] is your medical insurance provider. Go to [email or web address] and click the Health Risk Assessment and Resources link to get started. In the Devzk1Ezthuh menu, click Action Plans instead of Health Risk Assessment to access the Quit Smoking Action Plan. Additional smoking cessation resources are also available to all [facility] employees on the Qnccv0Yunwjh web page at www.[email or web address]/quitsmoking. [employer] Tobacco Cessation Program If [employer] is your medical insurance provider, there are more free resources available to you, including: No copays or deductibles on local tobacco cessation counseling services to help you quit Prescription assistance for tobacco cessation medications to help you quit For details about the tobacco cessation program available to [employer] members, go to www.[employer] (Search: Tobacco Cessation Program). [place] Tobacco Quit Line 5-031-PGSF-NOW ( ) is a toll-free, telephonic service that helps [place] residents quit smoking and using tobacco. It is staffed by experts who tailor a quit plan for you and provide you with advice. [place] Tobacco Quit Line 7-246-GRTR-NOW ( ) is a toll-free, telephonic service that helps [place] residents quit smoking and using tobacco. It is staffed by experts who tailor a quit plan for you and provide you with advice. Two weeks of nicotine replacement therapy may be provided at no charge, if needed. Additional Resources These national organizations also offer free information and resources to help you quit tobacco: [place] [employer]--www.cancer.org/healthy/stayawayfromtobacco [place] [employer]--www.heart.org (Search: Quit Smoking) Centers for Disease Control and Prevention--www.cdc.gov/tobacco [place] [employer]--www.lungusa.org documented in this encounterOhioHealth Dublin [facility] Hospital SystemEvaluation note* Diagnosis Depressive disorder (CMS/HCC) Depressive disorder, not elsewhere classified Allergic rhinitis, unspecified seasonality, unspecified trigger Localization-related epilepsy (CMS/HCC) Localization-related (focal) (partial) epilepsy and epileptic syndromes with simple partial seizures, without mention of intractable epilepsy documented in this encounter [facility] HealthcareEvaluation [facility]* Diagnosis Degenerative disc disease at L5-S1 level documented in this encounter [facility] HealthcareEvaluation note* Diagnosis Degenerative disc disease at L5-S1 level documented in this encounter [facility] HealthcareEvaluation note* Diagnosis Lumbar radiculopathy- Primary Thoracic or lumbosacral neuritis or radiculitis, unspecified Lumbosacral radiculopathy Thoracic or lumbosacral neuritis or radiculitis, unspecified [facility]* Diagnosis Degenerative disc disease at L5-S1 level documented [facility]* Diagnosis Degenerative disc disease at L5-S1 level documented [facility]* Diagnosis Localization-related epilepsy ([facility]/HCC) Localization-related (focal) (partial) epilepsy and epileptic syndromes with simple partial seizures, without mention of intractable epilepsy Degenerative disc disease at L5-S1 level [facility]* Diagnosis Medicare annual wellness visit, subsequent- Primary ACP (advance care planning) Other specified counseling Encounter for immunization Diabetic peripheral neuropathy associated with type 2 diabetes mellitus ([facility]) Essential tremor Localization-related epilepsy ([facility]) Localization-related (focal) (partial) epilepsy and epileptic syndromes with simple partial seizures, without mention of intractable epilepsy Lumbar radiculopathy Thoracic or lumbosacral neuritis or radiculitis, unspecified Lumbosacral neuritis Thoracic or lumbosacral neuritis or radiculitis, unspecified Lumbosacral radiculopathy Thoracic or lumbosacral neuritis or radiculitis, unspecified Polyneuropathy Unspecified hereditary and idiopathic peripheral neuropathy Right lumbar radiculopathy Thoracic or lumbosacral neuritis or radiculitis, unspecified Seizure disorder ([facility]) Unspecified epilepsy without mention of intractable epilepsy Panlobular emphysema ([facility]) Other emphysema Hiatal hernia Diaphragmatic hernia without mention of obstruction or gangrene Simple chronic bronchitis ([facility]) Simple chronic bronchitis Hemorrhoids, external External hemorrhoids without mention of complication Primary hypertension ([facility]) Unspecified essential hypertension Gastro-esophageal reflux disease without [...] Abnormality of gait Balance disorder Depressive disorder ([facility]) Depressive disorder, not elsewhere classified Falls frequently Personal history of fall Gait instability Abnormality of gait Hyponatremia Hyposmolality and/or hyponatremia Migraine without aura and without status migrainosus, not intractable ([facility]) Mixed hyperlipidemia ([facility]) Mixed hyperlipidemia Tobacco dependence due to cigarettes Tremor Abnormal involuntary movements Visual impairment Unspecified visual loss documented [facility]* Diagnosis Degenerative disc disease at L5-S1 level Diabetes mellitus due to underlying condition with diabetic polyneuropathy, unspecified whether long term care administrator insulin use ([facility])- Primary Onychomycosis Dermatophytosis of nail Toe pain, left Pain in soft tissues of limb Toe pain, right Pain in soft tissues of limb PVD (peripheral vascular disease) ([facility]) Unspecified peripheral vascular disease documented in this encounter [facility]* Diagnosis Right lumbar radiculopathy Thoracic or lumbosacral neuritis or radiculitis, unspecified Diabetes mellitus due to underlying condition with diabetic polyneuropathy, unspecified whether long term care administrator insulin use ([facility])- Primary Onychomycosis Dermatophytosis of nail Toe pain, bilateral [facility] Diagnosis Degenerative disc disease at L5-S1 level Diabetes mellitus due to underlying condition with diabetic polyneuropathy, unspecified whether fpc insulin use ([facility] Primary Onychomycosis Dermatophytosis of nail Toe pain, bilateral [facility]* Diagnosis Lumbar radiculopathy- Primary Thoracic or lumbosacral neuritis or radiculitis, unspecified Essential tremor DDD (degenerative disc disease), lumbar Degeneration of lumbar or lumbosacral intervertebral disc Polyneuropathy Unspecified hereditary and idiopathic peripheral neuropathy Gait instability Abnormality of gait Seizure disorder ([facility]) Unspecified epilepsy without mention of intractable epilepsy Polypharmacy Issue of repeat prescriptions Degenerative disc disease at L5-S1 level Diabetes mellitus due to underlying condition with diabetic polyneuropathy, unspecified whether fpc insulin use ([facility])- Primary Onychomycosis Dermatophytosis of nail Toe pain, bilateral [facility] this [facility]* Diagnosis Lumbar radiculopathy- Primary Thoracic or lumbosacral neuritis or radiculitis, unspecified Essential tremor Gait instability Abnormality of gait Polypharmacy Issue of repeat prescriptions Seizure disorder ([facility]) Unspecified epilepsy without mention of intractable epilepsy [...] underlying condition with diabetic polyneuropathy, unspecified whether fpc insulin use ([facility])- Primary Onychomycosis Dermatophytosis of nail Toe pain, [...] Hemorrhage of rectum and anus Other emphysema ([facility]) Other emphysema Tobacco abuse Tobacco use disorder [facility] Diagnosis Localization-related epilepsy (CMS/HCC) Localization-related (focal) (partial) epilepsy and epileptic syndromes with simple partial seizures, without mention of intractable epilepsy [facility]* Diagnosis Degenerative disc disease at L5-S1 level- Primary Panlobular emphysema (CMS/HCC) Other emphysema Primary hypertension (CMS/HCC) Unspecified essential hypertension Simple chronic bronchitis ([facility]/HCC) Simple chronic bronchitis Tobacco dependence Tobacco use disorder documented in this [facility]* Diagnosis Degenerative disc disease at L5-S1 level documented in this encounter [facility]* Diagnosis Contusion of left knee, subsequent encounter- Primary Primary hypertension ([facility]) Unspecified essential hypertension Abnormal gait Abnormality of [...] Polypharmacy Issue of repeat prescriptions Seizure disorder ([facility]) Unspecified epilepsy without mention of intractable epilepsy Polyneuropathy Unspecified hereditary and idiopathic peripheral neuropathy documented [facility] this [facility]* Diagnosis Lumbar radiculopathy- Primary Thoracic or lumbosacral neuritis or radiculitis, unspecified Lumbosacral radiculopathy Thoracic or lumbosacral neuritis or radiculitis, unspecified Diabetes mellitus due to underlying condition with diabetic polyneuropathy, unspecified whether fpc insulin use ([facility])- Primary Pain due to onychomycosis of toenails [...] Gait instability Abnormality of gait Localization-related epilepsy ([facility]) Localization-related (focal) (partial) epilepsy and epileptic syndromes with simple partial seizures, without mention of intractable epilepsy Diabetes mellitus due to underlying condition with diabetic polyneuropathy, unspecified whether long term care administrator insulin use ([facility])- Primary PVD (peripheral vascular disease) ([facility]) Unspecified peripheral vascular disease Pain due to onychomycosis of toenails of both feet documented [facility]* Diagnosis Diabetes mellitus due to underlying condition with diabetic polyneuropathy, unspecified whether fpc insulin use ([facility])- Primary PVD (peripheral vascular disease) ([facility]) Unspecified peripheral vascular disease Pain due to onychomycosis of toenails of both feet documented [facility] this [facility]* Diagnosis Diabetes mellitus due to underlying condition with diabetic polyneuropathy, unspecified whether fpc insulin use ([facility])- Primary Pain due to onychomycosis of toenails of both feet documented [facility] this [facility]* Diagnosis Onset Date Resolution Status Admit Date Essential tremor chronicAugust 2024 1:03pmGait instabilitychronicAugust 2024 1:03pm PolyneuropathychronicAugust 2024 1:03pmPolypharmacychronicAugust 2024 1:03pmRadiculopathy, lumbar regionchronicAugust 2024 1:03pmSeizure disorderchronicAugust 2024 1:03pm [facility] Work Phone: Evaluation note* Diagnosis Localization-related epilepsy [...] Other emphysema [facility] in this [facility]* Diagnosis Ingrown hair- Primary Other specified disease of hair and hair follicles Fall, initial encounter Gait instability Abnormality of gait documented in this [facility]* Diagnosis Localization-related epilepsy (HCC) Localization-related (focal) (partial) epilepsy and epileptic syndromes with simple partial seizures, without mention of intractable epilepsy documented [facility] this [facility]* Diagnosis Localization-related epilepsy (HCC) Localization-related (focal) (partial) epilepsy and epileptic syndromes with simple partial seizures, without mention of intractable epilepsy documented [facility] this [facility]* Diagnosis Localization-related epilepsy (HCC) Localization-related (focal) (partial) epilepsy and epileptic syndromes with simple partial seizures, without mention of intractable epilepsy Diabetes mellitus due to underlying condition with diabetic polyneuropathy, unspecified whether fpc insulin use (HCC)- Primary Pain due to onychomycosis of toenails of both feet documented in this encounter [facility] HealthcareReason for referral (narrative)No reason for referral information availablePremier Health Work Phone: Reason for visit Narrative* Injection (Routine) - ClosedSpecialtyDiagnoses / ProceduresReferred By ContactReferred To Contact Neurology Diagnoses Lumbar radiculopathy Lumbosacral radiculopathy Procedures Nerve Block Alvino Torres DO [address] [facility] [address] [place] [address] Phone: tel: fax: Referral IDStatusReasonStart DateExpiration DateVisits RequestedVisits [id number]/[id number]/ [facility] Narrative* Injection (Routine) - ClosedSpecialty Diagnoses / ProceduresReferred By ContactReferred To ContactNeurology Diagnoses Lumbar radiculopathy Procedures Nerve Block Maximo Nguyen NP [address] [facility] [address] [place] [address] Phone: tel: fax: Referral IDStatusReasonStart DateExpiration DateVisits RequestedVisits [id number]/10/20246/ [facility] HealthcareReason for [facility] Narrative* Injection (Routine) - ClosedSpecialty Diagnoses / ProceduresReferred By ContactReferred To ContactNeurology Diagnoses Lumbar radiculopathy Procedures Nerve Block Melissa Goldberg PA [address] [place] [address] Phone: tel: fax: Referral IDStatusReasonStart DateExpiration DateVisits RequestedVisits [id number]/[id number]/ [facility] Summary Purpose Family History Relationship Condition Age at Onset Recorded Date/T rajeev Not Specified Cerebrovascular accident (CVA) Unknown Advance Directives TypeDate RecordedPatient RepresentativeExplanationPower of Attorney01/13/2025 2:27 PMHealthcare Power of AttorneyAdvance Directives and Living Will01/13/2025 2:27 PMLiving Will DeclarationTypeDate RecordedPatient RepresentativeExplanation Power of Attorney01/13/2025 2:27 PMHealthcare Power of AttorneyAdvance Directives and Living Will01/13/2025 2:27 PMLiving Will Declaration Advance Directive Response Recorded Date/ Time Advance Directives No June 1:38pm Advance Directive Response Recorded Date/ Time Advance Directives No June 4:29pm Advance Directive Response Recorded Date/ Time Advance Directives No August 10, 2025 1:16pm Reason for Referral SpecialtyDiagnoses / ProceduresReferred By ContactReferred To [facility] HospitalNe[facility] Diagnoses Lumbar radiculopathy Procedures Nerve Block Maximo Nguyen NP [address] [place], [place] [id number] Referral IDStatusReasonStart DateExpiration DateVisits RequestedVisits [id number] / Procedures Referred By ContactReferred To [facility] Diagnoses Lumbar radiculopathy DDD (degenerative disc disease), lumbar Gait instability Procedures MR lumbar spine wo contrast Maximo Nguyen NP [address] [place] [address] [place] [facility] [address] [place] [address] Phone: [phone] Referral IDStatusReasonStart DateExpiration DateVisits RequestedVisits [id number] Review/[id number] / ProceduresReferred By ContactReferred To [facility] Diagnoses Lumbar radiculopathy DDD (degenerative disc disease), lumbar Polyneuropathy Gait instability Maximo Nguyen NP [address] [place] [address] [facility] [address] [place] [address] Referral IDStatusReasonStart DateExpiration DateVisits RequestedVisits [id number] Review Specialty Services Required [id number] / ProceduresReferred By Contact Referred To Contact Diagnoses Rectal bleeding Marizol Hightower, [address] [place] [address] Referral [facility]StatusReM[facility] DateExpiration DateVisits RequestedVisits [id number] Chief Complaint and Reason for Visit Chief [...] Seizure disorder June 01, 2025 1: 03pm Chief Complaint Admit Date EPI Follow up June 01, 2025 1: 03pm EPI- BILAT L4-- NPCR; Medicare/Medicaid July 05, 2025 11:23am Reason for Visit Admit Date Essential tremor June 01, 2025 1: 03pm Gait instability June 01, 2025 1: 03pm Migraine without aura and wi thout status migrainosus, not intractable June 01, 2025 1:03pm Polyneuropathy June 01, 2025 1: 03pm Polypharmacy June 01, 2025 1: 03pm Radiculopathy, lumbar region May 1:03pm Seizure disorder June 01, 2025 1: 03pm Chief Complaint Admit Date EPI Follow up June 01, 2025 1: 03pm EPI- BILAT L4-- NPCR; Medicare/Medicaid July 05, 2025 11:23am Radiculopathy, lumbar region July 10:53am Chief Complaint Admit Date EPI Follow up [...] 10:53am Polyneuropathy August 25, 2025 1 :30pm Additional Source Comments (unrecognized sect ion and content) No Status Records FoundNo Status Records FoundNo Status Records FoundNo Status Records FoundNo Status Records Found INFORMATION SOURCE (unrecogn ized section and content) DATE CREATED AUTHOR 04/15/2018 [facility] DATE CREATED AUTHOR AUTHOR'S ORGANIZ ATION 04/15/2018 [facility] DATE CREATED AUTHOR AUTHOR'S ORGANIZ ATION 02/14/2023 [facility] DATE CREATED AUTHOR AUTHOR'S ORGANIZ ATION 03/12/2024 [facility] DATE CREATED AUTHOR AUTHOR'S ORGANIZ ATION 06/29/2025 [facility] EPIC Care Teams (unrecognized sec tion and content) Team Status: Active Member Role Status Dates Mitul Richmond II MD Primary Care Provider Active Team Status: Inactive Member Role Status Dates Mitul Richmond II MD Primary Care Provider Active Start: June 01, 2025 End: June 01, 2025Gloria Beard APRN-FNP-CAttending ProviderActiveStart: June 01, 2025 End: June 01, 2025 Team Status: Inactive Member Role Status Dates Mitul Richmond II MD Primary Care Provider Active Start: July 05, 2025 End: July 05Riley Haynes ProviderActive Start: July 05, 2025 End: July 05, 2025Team MemberRelationshipSpecialtyStart DateEnd Date Mitul Richmond MD [address] [place] [address] PCP - [facility]03/13/23 mAerica Christianson PA [address] [place] [address] Physician Assistantmily Medicine11/03/23Team MemberRelationshipSpecialtyStart DateEnd Date Mitul Richmond MD [address] [place] [address] PCP - [facility]03/13/23 Mitul Richmond MD [address] [place] [address] PCP - GeneralInternal Medicine07/07/24 America Christianson PA [address] [place] [address] Physician Assistantmily Medicine11/03/23Team MemberRelationshipSpecialtyStart DateEnd Date Mitul Richmond MD [address] [place] [address] PCP - [facility]03/13/23 Mtiul Richmond MD [address] [place] [address] PCP - GeneralInternal Medicine07/07/24 America Christianson PA [address] [place] [address] Physician AssistantMadison County Health Care Systemly Medicine11/03/23Team MemberRelationshipSpecialtyStart DateEnd Mitul Richmond MD [address] [place] [address] PCP - [facility]03/13/23 Mitul Richmond MD [address] [place] [address] PCP - GeneralInternal Medicine07/07/24 America Christianson PA [address] [place] [address] Physician AssistantIrwin [facility] Hospital11/03/23Team MemberRelationshipSpecialtyStart DateEnd Date Mitul Richmond MD [address] [place] [address] PCP - [facility]03/13/23 Mitul Richmond MD [address] [place] [address] PCP - GeneralO[facility] Health Hospitalnal Medicine07/07/24 America Christianson PA [address] [place] [address] Physician AssistantWrentham Developmental Center Medicine11/03/23Team MemberRelationshipSpecialtyStart DateEnd Date Mitul Richmond MD [address] [place] [address] PCP - [facility]03/13/23 Mitul Richmond MD [address] [place] [address] PCP - GeneralInternal Medicine07/07/24 America Christianson PA [address] [place] [address] Physician AssistantFamily Medicine11/03/23Team MemberRelationshipSpecialtyStart DateEnd Date Mitul Richomnd MD [address] [place] [address] PCP - [facility]03/13/23 Mitul Richmond MD [address] [place] [address] PCP - GeneralInternal Medicine07/07/24 America Christianson PA [address] [place] [address] Physician AssistantWrentham Developmental Center Medicine11/03/23Team MemberRelationshipSpecialtyStart DateEnd Date Mitul Rihcmond MD [address] [place] [address] PCP - [facility]03/13/23 Mitul Richmond MD [address] [place] [address] PCP - GeneralInternal Medicine07/07/24 America Christianson PA [address] [place] [address] Physician AssistantWrentham Developmental Center Medicine11/03/23Team MemberRelationshipSpecialtyStart DateEnd Date Mitul Richmond MD [address] [place] [address] [facility]03/13/23 Mitul Richmond MD [address] [place] [address] PCP - GeneralInternal Medicine07/07/24 America Christianson PA [address] [place] [address] Physician AssistantWrentham Developmental Center Medicine11/03/23Team MemberRelationshipSpecialtyStart DateEnd Mitul Richmond MD [address] [place] [address] PCP - [facility]03/13/23 Mitul Richmond MD [address] [place] [address] PCP - GeneralOasis Behavioral Health Hospitalnal Medicine07/07/24 America Christianson PA [address] [place] [address] Physician AssistantIrwin County Hospital11/03/23Team MemberRelationshipSpecialtyStart DateEnd Mitul Richmond MD [address] [place] [address] PCP - [facility]03/13/23 Mitul Richmond MD [address] [place] [address] PCP - GeneralOasis Behavioral Health Hospitalnal Medicine07/07/24 America Christianson PA [address] [place] [address] Physician AssistantIrwin County Hospital11/03/23Team MemberRelationshipSpecialtyStart DateEnd Date Mitul Richmond MD [address] [place] [address] PCP - O [facility]03/13/23 America Christianson PA [address] [place] [address] Physician AssistantWrentham Developmental Center Medicine11/03/23Te MemberRelationshipSpecialtyStart DateEnd Date Mitul Richmond MD [address] [place] [address] PCP - [facility]03/13/23 America Christianson PA [address] [place] [address] Physician AssistantIrwin County Hospital11/03/23Te MemberRelationshipSpecialtyStart DateEnd Date Mitul Richmond MD [address] [place] [address] PCP - [facility]03/13/23 Mitul Richmond MD [address] [place] [address] PCP - GeneralOasis Behavioral Health Hospitalnal Medicine07/07/24 America Christianson PA [address] [place] [address] Physician AssistantIrwin County Hospital11/03/23Te MemberRelationshipSpecialtyStart DateEnd Date Mitul Richmond MD [address] [place] [address] PCP - [facility]03/13/23 Mitul Richmond MD [address] [place] [address] [facility]/07/24 America Christianson PA [address] [place] [address] Physician AssistantIrwin County Hospital11/03/23Te MemberRelationshipSpecialtyStart DateEnd Date Mitul Richmond MD [address] [place] [address] [facility]03/13/23 America Christianson PA [address] [place] [address] Physician AssistantIrwin County Hospital11/03/23Te MemberRelationshipSpecialtyStart DateEnd Date Mitul Richmond MD [address] [place] [address] [facility]03/13/23 America Christianson, PA [address] [place] [address] Physician AssistantIrwin County Hospital11/03/23Te MemberRelationshipSpecialtyStart DateEnd Date Mitul Richmond MD [address] [place] [address] [facility]03/13/23 Mitul Richmond MD [address] [place] [address] [facility] - [facility]07/07/24 America Christianson PA [address] [place] [address] Physician AssistantFamily Medicine11/03/23Team MemberRelationshipSpecialtyStart DateEnd Date Mitul Richmond MD [address] [place] [address] PCP - [facility]03/13/23 Mitul Richmond MD [address] [place] [address] PCP - GeneralInternal Medicine07/07/24 America Christianson PA [address] [place] [address] Physician AssistantFamily Medicine11/03/23 Venita Rosas, CODY Registered NurseWrentham Developmental Center Medicine11/12/24Team MemberRelationshipSpecialtyStart Date End Date Mitul Richmond MD [address] [place] [address] PCP - GeneralInternal Medicine03/02/24Team MemberRelationshipSpecialtyStart Date End Date Mitul Richmond MD [address] [place] [address] PCP - [facility]03/13/23 Mitul Richmond MD [address] [place] [address] PCP - GeneralInternal Medicine07/07/24 America Christianson PA [address] [place] [address] Physician AssistantFamily Medicine11/03/23 Venita Rosas RN Registered NurseFamily Medicine11/12/24Team MemberRelationshipSpecialtyStart Date End Date Mitul Richmond MD [address] [place] [address] PCP - [facility]03/13/23 Mitul Richmond MD [address] [place] [address] PCP - GeneralInternal Medicine07/07/24 America Christianson PA [address] [place] [address] Physician AssistantFamily Medicine11/03/23 Venita Rosas RN Registered NurseFamily Medicine11/12/24Team MemberRelationshipSpecialtyStart Date End Date Mitul Richmond MD [address] [place] [address] PCP - O [facility]03/13/23 Mitul Richmond MD [address] [place] [address] PCP - GeneralInternal Medicine07/07/24 America Christianson PA [address] [place] [address] Physician AssistantFamily Medicine11/03/23 Venita Rosas RN Registered NurseFamily Medicine11/12/24Team MemberRelationshipSpecialtyStart Date End Date Mitul Richmond MD [address] [place] [address] PCP - [facility]03/13/23 Mitul Richmond MD [address] [place] [address] PCP - GeneralInternal Medicine07/07/24 America Christianson, PA [address] [place] [address] Physician AssistantFamily Medicine11/03/23 Venita Rosas, CODY Registered NurseFamily Medicine11/12/24Team MemberRelationshipSpecialtyStart Date End Date Mitul Richmond MD [address] [place] [address] PCP - [facility]03/13/23 Mitul Richmond MD [address] [place] [address] PCP - GeneralInternal Medicine07/07/24 America Christianson, PA [address] [place] [address] Physician AssistantFamily Medicine11/03/23 Venita Rosas RN Registered NurseWrentham Developmental Center Medicine11/12/24Team MemberRelationshipSpecialtyStart Date End Date Mitul Richmond MD [address] [place] [address] PCP - [facility]03/13/23 Mitul Richmond MD [address] [place] [address] PCP - GeneralInternal Medicine07/07/24 America Christianson PA [address] [place] [address] Physician AssistantFamily Medicine11/03/23 Venita Rosas, CODY Registered NurseFamily Medicine11/12/24Team MemberRelationshipSpecialtyStart Date End Date Mitul Richmond MD [address] [place] [address] PCP - [facility]03/13/23 Mitul Richmond MD [address] [place] [address] PCP - GeneralInternal Medicine07/07/24 America Christianson PA [address] [place] [address] Physician AssistantFamily Medicine11/03/23 Venita Rosas, RN Registered NurseFaflly Medicine11/12/24Team MemberRelationshipSpecialtyStart Date End Date Mitul Richmond MD [address] [place] [address] PCP - [facility]03/13/23 Mitul Richmond MD [address] [place] [address] PCP - GeneralInternal Medicine07/07/24 America Christianson PA [address] [place] [address] Physician AssistantFamily Medicine11/03/23 Venita Rosas RN Registered NurseFamily Medicine11/12/24Team MemberRelationshipSpecialtyStart Date End Date Mitul Richmond MD [address] [place] [address] PCP - O [facility]03/13/23 Mitul Richmond MD [address] [place] [address] PCP - GeneralInternal Medicine07/07/24 America Christianson PA [address] [place] [address] Physician AssistantFamily Medicine11/03/23 Venita Rosas RN Registered NurseFaflly Medicine11/12/24Te MemberRelationshipSpecialtyStart Date End Date Mitul Richmond MD [address] [place] [address] [facility]03/13/23 Mitul Richmond MD [address] [place] [address] PCP - GeneralInternal Medicine07/07/24 America Christianson PA [address] [place] [address] Physician AssistantFamily Medicine11/03/23 Venita Rosas RN Registered NurseFamily Medicine11/12/24Team MemberRelationshipSpecialtyStart Date End Date Mitul Richmond MD [address] [place] [address] PCP - [facility]03/13/23 Mitul Richmond MD [address] [place] [address] PCP - GeneralInternal Medicine07/07/24 America Christianson, PA [address] [place] [address] Physician AssistantFamily Medicine11/03/23 Venita Rosas RN [address] [place] [address] Registered NurseIrwin County Hospital11/12/24Team MemberRelationshipSpecialtyStart Date End Date Mitul Richmond MD [address] [place] [address] PCP - [facility]03/13/23 Mitul Richmond MD [address] [place] [address] [facility] - [facility]nal [facility]07/07/24 America Christianson, PA [address] [place] [address] Physician AssistantMadison County Health Care Systemly Medicine11/03/23 Venita Rosas RN [address] [place] [address] Registered NurseIrwin [facility] Hospital11/12/24Te MemberRelationshipSpecialtyStart Date End Date Mitul Richmond MD [address] [place] [address] PCP - [facility]03/13/23 Mitul Richmond MD [address] [place] [address] PCP - GeneralInternal Medicine07/07/24 America Christianson PA [address] [place] [address] Physician AssistantFamily Medicine11/03/23 Venita Rosas RN [address] [place] [address] Registered NurseFaflly Medicine11/12/24 Team Status: Active Member Role Status Dates Mitul Richmond II MD Primary Care Provider Active Start: March 28, 2025 Serenity Lambending ProviderActiveStart: March 28, 2025 Team MemberRelationshipSpecialtyStart DateEnd Date Mitul Richmond MD [address] [place] [address] PCP - [facility]03/13/23 Mitul Richmond MD [address] [place] [address] PCP - GeneralInternal Medicine07/07/24 America Christianson PA [address] [place] [address] Physician AssistantFamily Medicine11/03/23 Venita Rosas RN [address] [place] [address] Registered NurseWrentham [facility] Medicine11/12/24Team MemberRelationshipSpecialtyStart Date End Date Mitul Richmond MD [address] [place] [address] PCP - [facility]03/13/23 Mitul Richmond MD [address] [place] [address] PCP - GeneralInternal Medicine07/07/24 America Christianson, FRANCO [address] [place] [address] Physician AssistantFamily Medicine11/03/23 Venita Rosas RN [address] [place] [address] Registered NurseIrwin County Hospital11/12/24Team MemberRelationshipSpecialtyStart Date End Date Mitul Richmond MD [address] [place] [address] PCP - [facility]03/13/23 Mitul Richmond MD [address] [place] [address] PCP - GeneralO[facility] Health Hospitalnal Medicine07/07/24 America Christianson, PA [address] [place] [address] Physician AssistantWrentham Developmental [facility] Medicine11/03/23 Venita Rosas RN [address] [place] [address] Registered NurseIrwin County Hospital11/12/24Team MemberRelationshipSpecialtyStart Date End Date Mitul Richmond MD [address] [place] [address] PCP - [facility]03/13/23 Mitul Richmond MD [address] [place] [address] PCP - GeneralInternal Medicine07/07/24 America Christianson PA [address] [place] [address] Physician AssistantFamily Medicine11/03/23 Venita Rosas RN [address] [place] [address] Registered NurseWrentham Developmental [facility] Medicine11/12/24Team MemberRelationshipSpecialtyStart Date End Date Mitul Richmond MD [address] [place] [address] PCP - [facility]03/13/23 Mitul Richmond MD [address] [place] [address] PCP - GeneralInternal Medicine07/07/24 America Christianson PA [address] [place] [address] Physician AssistantFamily Medicine11/03/23 Venita Rosas RN [address] [facility] [address] [place] [address] Registered NurseFaflly Medicine11/12/24Team MemberRelationshipSpecialtyStart Date End Date Mitul Richmond MD [address] [place] [address] PCP - [facility]03/13/23 Mitul Richmond MD [address] [place] [address] PCP - GeneralInternal Medicine07/07/24 America Christianson PA [address] [facility] [address] [place] [address] Physician AssistantWrentham Developmental Center Medicine11/03/23 Venita Rosas, RN [address] [place] [address] Registered NurseFametropolitan state hospital Medicine11/12/24 Team Status: Active Member Role/Relationship Status Dates Mitul Richmond II MD Primary Care Provider Active Team Status: Inactive Member Role/Relationship Status Dates Mitul Richmond II MD Primary Care Provider Active Start: June 01, 2025 End: June 01, 2025Gloria Beard APRN-FNP-CAttending ProviderActiveStart: June 01, 2025 End: June 01, 2025 Team Status: Inactive Member Role/Relationship Status Dates Mitul Richmond II MD Primary Care Provider Active Start: July 05, 2025 End: July 05marie Torres DOAttending ProviderActive Start: July 05, 2025 End: July 05, 2025 Team Status: Inactive Member Role/Relationship Status Dates Mitul Richmond II MD Primary Care Provider Active Start: August 08, 2025 End: August 08, 2025Nirmal Garcia DOAttaudrey ProviderActiveStart: August 08, 2025 End: August 08, 2025Team MemberRelationshipSpecialtyStart DateEnd Date Mitul Richmond MD [address] [facility] [address] [place] [address] PCP - [facility]03/13/23 Mitul Richmond MD [address] [facility] [address] [place] [address] PCP - GeneralO[facility] Health Hospitalnal Medicine07/07/24 America Christianson PA [address] [facility] [address] [place] [address] Physician Assistantmily Medicine11/03/23 Venita Rosas RN [address] [place] [address] Registered NurseIrwin County Hospital11/12/24Te MemberRelationshipSpecialtyStart Date End Date Mitul Richmond MD [address] [place] [address] PCP - [facility]03/13/23 Mitul Richmond MD [address] [place] [address] PCP - GeneralInternal Medicine07/07/24 America Christianson PA [address] [place] [address] Physician AssistantMadison County Health Care Systemly Medicine11/03/23 Venita Rosas RN [address] [place] [address] Registered NurseIrwin County Hospital11/12/24Te MemberRelationshipSpecialtyStart Date End Date Mitul Richmond MD [address] [place] [address] PCP - [facility]03/13/23 Mitul Richmond MD [address] [place] [address] PCP - GeneralInternal Medicine07/07/24 America Christianson, FRANCO [address] [place] [address] Physician Assistantmily Medicine11/03/23 Venita Rosas RN [address] [place] [address] Registered NurseFamily Medicine11/12/24Team MemberRelationshipSpecialtyStart Date End Date Mitul Richmond MD [address] [facility] [address] [place] [address] PCP - [facility]03/13/23 Mitul Richmond MD [address] [facility] [address] [place] [address] PCP - GeneralInternal Medicine07/07/24 America Christianson PA [address] [facility] [address] [place] [address] Physician AssistantFamily Medicine11/03/23 Venita Rosas, CODY [address] [facility] [address] [place] [address] Registered NurseFaflly Medicine11/12/24 Team Status: Inactive Member Role/Relationship Status Dates Mitul Richmond II MD Primary Care Provider Active Start: August 25, 2025 End: August 25hrRiley Jones ProviderActiveStart: August 25, 2025 End: August 25, 2025 Reason for Visit (unrecogniz ed section and content) ReasonCommentsMed RefillReasonOnset DateCommentsMed Njcjbq174ReasonOnset DateCommentsMed Usbhmj084ReasonOnset DateCommentsMed Bogcls7708/16/2024 ReasonOnset DateCommentsMed Qvbjok264ReasonCommentsMedicare Annual Wellness Visit Subsequentnasal drainagePt states he has nasal drainage and some post nasal drainage would like to be checked to see if he has a sinus infection. Started about a week ago.ReasonOnset DateCommentsMed Rwkbib694Reason Onset DateCommentsMed Okjhur124ReasonCommentsSeizuresBack PainGait ProblemTremorsReasonCommentsBack PainTremorsSeizuresGait ProblemPolyneuropathy ReasonCommentsToenail CareNON DM NAILReasonOnset DateCommentsMed Refill 10/25/2024ReasonOnset DateCommentsMed Wovvsd8910/27/2024ReasonCommentsGI Bleeding GI bleed, rectal prolapse, [facility] ER 02/29/24ReasonOnset DateCommentsMed Refill 12/20/2024ReasonOnset DateCommentsMed Rznypt8301/24/2025ReasonOnset DateComments Med Lshnec6301/27/2025ReasonCommentsFollow-upReasonOnset DateCommentsMed Refill 02/23/2025ReasonCommentsDM Foot CareDm nail careReasonOnset DateCommentsMed Sudxaq9405/10/2025ReasonCommentsToenail CareReasonCommentsMed [facility], [facility] like it [facility] sent to [facility] and needs hydrocodone. Medication QuestionHe is not taking Chantix d/t he was having suicidal thoughts. ReasonCommentsFallPt was standing on the scale for his weight and fell backwards off the scale and hit his back and his right knee is hurting. He did not fall on his knee.ReasonOnset DateCommentsMed Utdttj8607/18/2025ReasonOnset DateComments Med Uoryvo7408/01/2025 Goals (unrecognized section and content) Goals may [...] BE BASED ON THE PRIMARY CLINICAL RECORDS. [employer] provides no warranty or guarantee of the accuracy or completeness of information in this document.
--- OUTSIDE RECORDS SUMMARY | 2025-08-30 12:44 | XMS_ITS | Encounter Summary ---
Author Organization [facility] Address [address] [facility] [place] [address] Care Team Providers Care Collision Estimator Name Role Phone Mitul Richmond MD Unavailable [phone] America Mercado Unavailable [phone] Mitul Richmond MD Primary Care Provider [phone] Venita Rosas RN Unavailable [phone] Encounter Details DateTypeDepartmentCare Team (Latest Contact Info)Fqpuhonekvp43/03/2024Clinisync Result Encounter [facility] Department Unsolicited Provider, Generic External Data Social History Tobacco UseTypesPacks/DayYears UsedDateSmoking Tobacco: Every DayCigarettes0.315 Smokeless Tobacco: Never Comments:Smoking 3 cigarette s a day as of 11/24/2023. H/o 1 PPD Alcohol UseStandard Drinks/WeekCommentsNever0 (1 standard drink = 0.6 oz pure alcohol)PHQ-2AnswerDate RecordedPatient Health Questionnaire-2 Hdtja013 Sex and Gender InformationValueDate RecordedSex Assigned at BirthNot on file Legal JhnDabx6001/01/2023 7:20 PM EDTGender IdentityNot on fileSexual Orientation Not on filedocumented as of this encounter Functional Status * Over the past 2 weeks, how often have you been bothered by any of the following problems?QuestionAnswerDate of AssessmentAuthorLittle interest or pleasure in doing thingsNot at all06/27/2025 1:39 PM EDTVoss, Mine, INSURANCE WRITER Feeling down, depressed, or hopelessNot at all06/27/2025 1:39 PM Mine Christiansen LPNPatient Health Questionnaire-2 Ksunq865 1:39 PM Mine Christiansen LPN documented as of this encounter Plan of Treatment DateTypeDepartmentCare Team (Latest Contact Info)Henrlquibep28/18/2025 2:00 PM ESTOffice Visit [facility] [address] [place] [phone] America Mercado PA [address] [place] [address] 09/08/2025 2:50 PM ESTProcedure Visit [facility] [address] [place] [address] Frandy Avitia DPM [address] [facility] [address] [place] [address] documented as of this encounter Procedures Procedure NamePriorityDate/TimeAssociated DiagnosisCommentsSEGMENTAL BLOOD WQQFLRLO04/03/2024 2:06 PM EDT documented in this encounter Results * SEGMENTAL BLOOD PRESSURE (02/20/2024 2:06 PM EDT)Anatomical RegionLaterality ModalityRadiographic ImagingSpecimen (Source)Anatomical Location / Laterality Collection Method / VolumeCollection TimeReceived Time02/20/2024 2:06 PM EDT Narrative 02/22/2024 11:06 AM EDT [facility] ?[address] ? [place] [address] ? Cardiology Report ? Signed ? Patient: DUTCH SANCHEZ Sr. ?MR#: [id number] ?? : 1955 ?Acct:[id number] ?? Age/Sex: 68 / M ?ADM Date: 02/20/24 ?? Loc: CARD ? Attending Dr: FRANDY AVITIA ? Ordering Physician: FRANDY AVITIA ?? Date of Service: 02/20/24 ?? Procedure(s): CA segmental UE or LE ALESHIA ?? Accession Number(s): [id number] ? cc: MITUL RICHMOND ; FRANDY AVITIA ?[facility] ? Test Date: ?2024-02-20 ?? Pat Name: ? DUTCH SANCHEZ ? Department: ? Room: ? - ?? Gender: ? Male ? 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 : ?1955 ? Requested By: FRANDY AVITIA ?? Order Number: [id number] ?Reading MD: ?? EDWARD ??BALL ? Interpretive Statements ?? Biphasic doppler waveforms ?? PVR waveforms with normal upstroke, amplitude and dicrotic notch ?? Right: ?? - no significant pressure gradient between cuffs ?? - normal ALEX ?? Left: ?? - no significant pressure gradient between cuffs ?? - normal ALEX ? Impression: ?? Normal arterial evaluation of the lower extremities without hemodynamic ?? impairmemt of the B/L lower extremities at rest. (right ALEX 1.21, left ALEX ?? 1.20) ? Electronically Signed On 02-22-2024 11:05:58 EDT by EDWARD ??SYLVAIN ? Dictated By: ?Edward Narayan.O. ? Signed By: ?02/22/246 ?02/22/241105 ? DD/ 1406 ? TD/TT: ? 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 Signed By:02/22/24 1106 02/22/24 1106 DD/ 1406 TD/TT: Director Of Rooms: Authorizing ProviderResult TypeResult StatusGeneric External Data ProviderIMG XR PROCEDURESFinal Result documented in this encounter Visit Diagnoses Not on filedocumented in this encounter Care Teams Team MemberRelationshipSpecialtyStart DateEnd Date Mitul Richmond MD [address] [facility] [address] [place] [address] PCP - [facility]03/13/23 Mitul Richmond MD [address] [facility] [address] [place] [address] PCP - GeneralInternal Medicine07/07/24 America Mercado PA [address] [facility] [address] [place] [address] Physician AssistantFamily Medicine11/03/23 Venita Rosas, CODY [address] [place] [address] Registered NurseFamily Medicine11/12/24documented as of this encounter
--- NOTE | 2025-08-30 12:46 | XR_ITS ---
The [address] [address] Patient Name: DUTCH MONIQUE MRN: [id number] date: 1955 Sex: M Assigned Patient Location: CT Current Patient Location: CT Accession/Order Number: [id number] Exam Date: 08/30/2025 13:00 Report Date: 08/30/2025 18:06 At the request of: CARLOS ALFREDO DO Procedure: XR scoliosis survey XR scoliosis survey 08/30/2025 1:15 PM SIGNS AND SYMPTOMS: ^lumbar radiculopathy PROTOCOLS: Frontal and lateral radiographs of the entire spine COMPARISON: None FINDINGS: There is an 11 degrees levoconvex curvature of the upper thoracic spine. There is an 8 degrees dextro convex curvature of the lumbar spine. There is straightening of the normal lumbar lordosis. There is severe disc height loss at L5-S1 with moderate disc height loss at L2-L3 and L3-L4. Mild disc height loss is noted at L1-L2 and L4-L5. Body heights and intervertebral discs are preserved throughout the thoracic spine. There is no fracture or subluxation. Degenerative changes are noted in the left hip.. No evidence of fracture or bony destructive lesion. XR/XR scoliosis survey IMPRESSION: There is an 11 degrees levoconvex curvature of the upper thoracic spine. There is an 8 degrees dextro convex curvature of the lumbar spine. There is straightening of the normal lumbar lordosis. Multilevel degenerative changes noted in the lumbar spine as above. Impression dictated by: Walt Almendarez M.D. 08/30/2025 6:06 PM Dictation Location: [place] [address] Electronically authenticated by: [id number] Y Date: 08/30/2025 18:06
--- NOTE | 2025-08-30 12:46 | XR_ITS ---
The [place] [address] Patient Name: DUTCH MONIQUE MRN: [id number] date: 1955 Sex: M Assigned Patient Location: CT Current Patient Location: CT Accession/Order Number: [id number] Exam Date: 08/30/2025 13:00 Report Date: 08/30/2025 18:09 At the request of: CARLOS ALFREDO DO Procedure: XR lumbar spine 6V w bending XR lumbar spine 6V w bending 08/30/2025 1:15 PM SIGNS AND SYMPTOMS: ^lumbar radiculopathy PROTOCOLS: Frontal, lateral, oblique, and flexion-extension views of the lumbar spine COMPARISON: 06/17/2025 FINDINGS: There is an 11 degree dextro convex curvature of the lumbar spine. There is straightening of the normal lumbar lordosis. There is severe disc height loss at L5-S1 with moderate disc height loss at L2-L3 and L3-L4. Mild disc height loss is noted at L1-L2 and L4-L5. The vertebral body heights are preserved. No pathologic movement on flexion or extension. Facet hypertrophy is present throughout the lower lumbar spine. The sacrum and sacroiliac joints are normal. XR/XR lumbar spine 6V w bending IMPRESSION: No fracture, subluxation, or pathologic movement. There is straightening of the normal lumbar lordosis. Multilevel degenerative changes noted as above. This is similar to the previous MRI. Impression dictated by: Walt Almendarez M.D. 08/30/2025 6:09 PM Dictation Location: [employer] Electronically authenticated by: [id number] Y Date: 08/30/2025 18:09
--- NOTE | 2025-08-30 12:47 | CT_ITS ---
The [address] [address] Patient Name: DUTCH MONIQUE MRN: [id number] date: 1955 Sex: M Assigned Patient Location: CT Current Patient Location: CT Accession/Order Number: [id number] Exam Date: 08/30/2025 13:12 Report Date: 08/30/2025 18:20 At the request of: CARLOS ALFREDO DO Procedure: CT lumbar spine wo con CT lumbar spine wo con 08/30/2025 1:17 PM History:Chronic low back pain radiculopathy TECHNIQUE: Multi detector CT axial slices of the lumbar spine were obtained without IV contrast. Volumetric acquisition sagittal, coronal, and 3-D reconstructions were performed and reviewed on a separate workstation. CT was performed with one or more of the following dose reduction techniques: Automated exposure control, adjustment of the mA and/or kV according to patient size, or use of iterative reconstruction technique. COMPARISON: 08/30/2025 FINDINGS: There is preservation of the vertebral body heights. There is severe disc height loss at L5-S1 with vacuum disc phenomena. Lesser degrees of disc height loss are noted throughout. Broad-based disc bulge is accompanied facet hypertrophy and endplate osteophyte formation greatest at L4-5 and L5-S1. There is significant neural foraminal stenosis at these levels greatest bilaterally at L5-S1. Spinal canal stenosis is noted at L3-L4, L4-5, and L5-S1. Degenerative changes are noted in the sacroiliac joints. No fractures or dislocations are seen. The alignment of the lumbar spine is normal. The paraspinous soft tissues are within normal limits. The visualized lung parenchyma is unremarkable. The visualized abdominal and pelvic viscera is unremarkable. CT/CT lumbar spine wo con IMPRESSION: No acute bony injury. Degenerative changes are noted in the lumbar spine greatest at L5-S1. Degenerative changes are noted in the sacroiliac joints. Impression dictated by: Walt Almendarez M.D. 08/30/2025 6:20 PM Dictation Location: [place] [address] Electronically authenticated by: [id number] Y Date: 08/30/2025 18:20
== END 2025-08-30 12:41 | disposition home or self-care (01) ==
LOC: CT 12:40
PROVIDERS: PCP Internal Medicine; Visit Provider Neurological Surgery
DX: M54.17 Radiculopathy, lumbosacral region (principal); M54.16 Radiculopathy, lumbar region; M41.9 Scoliosis, unspecified; M51.369 Other intervertebral disc degeneration, lumbar region without mention of lumbar back pain or lower extremity pain
CPT/HCPCS: 72082; 72114; 72131; 76376